=== PATIENT | female | born 1940 | race Caucasian/White ===

== ENCOUNTER → 2016-09-20 | Outpatient (CLI) | payer MEDICARE, MEDICAID ==
[~2016-09-20] MED LIST: ALAVERT PO; ALPR0.5T3; ALPR0.5T72 PO; ASP81CT; ASP81TEC PO; AZIT-21 PO; AZTH250C PO; CALC-80 PO; CETI10TA17 PO; DARI7.5T8; ENAL5TAB; ENAL5TAB PO; GUAI5LIQ3 PO; HYDR-3583 PO; LOVA20TA2 PO; LSNP20T PO; METO-272 PO; METO10TA3 PO; METO25TA2 PO; METOPROLOL ER; MULT-608 PO; NAPR-243 PO; NF-ESOM40C PO; OMEG1CAP51 PO; OMEP20CA12 PO; OXB5T; PARO20TA5 PO; PARO20TA57; PARO20TA57 PO; PRM25T PO; PRO-AIR HFA; RANI150T66; REGADENOSON 0.4 MG/5 ML SYR (LEXISCAN) IV ONE; RMP5C; SMV20T; TRM50T; ZLP5T
[2016-09-20] MEDS: CATHETER FLUSH 10 ML SYR IV PRN ×2 (07:39→09:06)
[2016-09-20 09:00] VITALS: BP 168/97
--- NOTE | 2016-09-21 07:22 | STRESS TEST ---
PROCEDURE PHYSICIAN: ANA PAULA COOLEY DATE OF PROCEDURE: 09/20/2016 LEXISCAN MYOVIEW STRESS TEST REPORT REFERRING PHYSICIAN: Dr. Ann, [facility]. INDICATIONS: 1. Coronary artery disease. 2. Dyspnea. BASELINE HEART RATE: 88 BASELINE BLOOD PRESSURE: 168/97. BASELINE EKG: Sinus rhythm with left bundle branch block. SUMMARY: The patient was injected with 10.49 mCi of technetium 99 Myoview and the resting images were obtained. Then the patient received 0.4 mg of Lexiscan followed by 31.2 mCi of technetium 99 Myoview. Throughout the test, there were no EKG changes. The resting and stress images were reviewed and compared in the short axis, horizontal long axis, and vertical long axis views. Review of the images showed reversible ischemia involving the whole anterior wall, anterior septum and inferolateral septum, fixed defect at the true apex. SSS is 21, SDS 12, TID value 1.02. On the gated images, the left ventricle is dilated. Diffuse left ventricular hypokinesia. Dyskinesia at the true apex, severe hypokinesia at the mid to apical anterior wall, anterior septum. Calculated ejection fraction 28%. CONCLUSION: 1. The patient tolerated Lexiscan well. 2. Total infarction of the apical area with reversible ischemia involving the whole anterior wall, anterior septum and inferior septum. 3. Dilated left ventricle with diffuse left ventricular hypokinesia more pronounced at the anterior wall. Dyskinesia of the apex. Job ID: [id number] Dictated Date: 09/20/2016 17:45:29 Entry Level Manager Date: 09/21/2016 07:17:57 / rosa
== END ==
LOC: CARD 07:16
PROVIDERS: ATTEND Physician Assistant
DX: I25.10 Atherosclerotic heart disease of native coronary artery without angina pectoris (principal); I65.23 Occlusion and stenosis of bilateral carotid arteries; R06.00 Dyspnea, unspecified; F41.9 Anxiety disorder, unspecified
CPT/HCPCS: 78452; 93017

== ENCOUNTER 2016-09-27 07:22 | Day surgery (SDC) | payer MEDICARE, MEDICAID ==
[2016-09-27] VITALS (9 sets, daily range): BP systolic 128–179; BP diastolic 57–98
[~2016-09-27] VITALS: Ht 162.6 cm; Wt 76.7 kg
[~2016-09-27 07:22] MED LIST changes: -CETI10TA17 PO; -METO-272 PO; -OMEP20CA12 PO; -PARO20TA5 PO; -REGADENOSON 0.4 MG/5 ML SYR (LEXISCAN) IV ONE
--- OUTSIDE RECORDS SUMMARY | 2016-09-27 07:25 | XMS REPORT ---
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 Role Phone JOYA RIOS Unavailable PROBLEMS Type Condition ICD9-CM Code YFD08-DL Code Onset Dates Condition Status SNOMED Code Problem Screening for diabetes mellitus V77.1 Active 062191030 Problem Unspecified breast screening V76.10 Active 336751979 Problem Screening for thyroid disorder V77.0 Active 236478313 Assessment Bronchitis J40 Mar, Active 23690357 Assessment Seasonal allergic rhinitis due to pollen J30.1 Mar, Active 67187044 Problem Anxiety F41.9 Active 95099317 Problem Hypertension 401.9 Active 17081951 Problem Acute bronchitis 466.0 Active 54957811 Problem Need for prophylactic vaccination and inoculation, Influenza V04.81 Active 533556692 Problem Patient is full code Z78.9 Active 714526543 Problem Fever, unspecified 780.60 Active 798629047 ALLERGIES Substance Reaction Event Type Date Status Penicillin V Potassium itching Drug Allergy Mar, Active Benadryl itching Drug Allergy Mar, Active steroids itching Non Drug Allergy Mar, Active SOCIAL HISTORY No smoking Hx information available PLAN OF CARE VITAL SIGNS Height 64 in 2016-03-30 Weight 188.4 lbs 2016-03-30 Heart Rate 80 bpm 2016-03-30 Respiratory Rate 18 2016-03-30 BMI 32.34 kg/m2 2016-03-30 Blood pressure systolic 152 mmHg 2016-03-30 Blood pressure diastolic 90 mmHg 2016-03-30 MEDICATIONS Medication Instructions Dosage Frequency Start Date End Date Duration Status Azithromycin 250 MG Orally Once a day 2 tablets on the first day, then 1 tablet daily for 4 days 24h Mar, Mar, 5 day(s) Active Reglan 10 MG take 1 tablet by Oral route 2 times per day 30 Active Omeprazole 20 MG Orally Once a day 1 capsule 24h 90 days Active Cetirizine HCl 10 mg Orally Once a day 1 tablet 24h Mar, Active Paxil 20 mg Orally 1 TAB orally once a day 1 tablet by Oral route 1 time per day Jan, Active Aspir-81 81 MG Orally Once a day 1 tablet 24h Active Xanax 0.5 MG Orally Twice a day 1 tablet as needed 12h Jun, 28 days Active Metoclopramide HCl 10 MG TAKE ONE TABLET BY MOUTH TWICE DAILY 30 Active Toprol XL 50 MG TAKE ONE TABLET BY MOUTH ONCE DAILY 30 Active RESULTS No Results PROCEDURES Procedure Date Ordered Related Diagnosis Body Site FOR[facility] VISIT ESTABLISHED PATIENT Mar 30, 2016 Office Visit, Est Pt., Level 3 Mar 30, 2016 IMMUNIZATIONS No Known Immunizations
[2016-09-27] MEDS ORDERED: HEParin (CATH LAB) 2,000 ML IV ONE (07:58)
[2016-09-27] MEDS ORDERED: LIDOCAINE 1% INJ 20 ML (XYLOCAINE) VIAL ONE (07:58)
[2016-09-27] MEDS ORDERED: NS IV 1000 ML 1,000 ML ONE (07:58)
[2016-09-27 08:30] LABS: BILIRUBIN,URINE NEGATIVE (NEGATIVE); KETONES,URINE NEGATIVE (NEGATIVE); LEUKOCYTE ESTERASE ,URINE 3+ (NEGATIVE); NITRITE,URINE NEGATIVE (NEGATIVE); PH,URINE 7 (5-9); PROTEIN,URINE 2+ (NEGATIVE); UROBILINOGEN,URINE 4 MG/DL (NORMAL)
[2016-09-27 08:30] LABS: MEAN PLATELET VOLUME 11.2 FL (7.4-10.4); RED BLOOD COUNT 3.88 10^6/uL (4.35-5.85); RED CELL DISTRIBUTION WIDTH 15.9 % (10.0-14.5)
[2016-09-27] MEDS ORDERED: NS IV 1000 ML 1,000 ML IV SCH ×2 (08:30→12:08)
[2016-09-27] MEDS ORDERED: METO10TA3 PO (08:39)
[2016-09-27] MEDS ORDERED: OMEP20CA12 PO (08:39)
[2016-09-27] MEDS ORDERED: METO-272 PO (08:39)
[2016-09-27] MEDS ORDERED: PARO20TA5 PO (08:39)
[2016-09-27] MEDS ORDERED: CETI10TA17 PO (08:39)
[2016-09-27 08:40] LABS: PROTHROMBIN TIME PATIENT 13.2 SEC (12.2-14.7)
[2016-09-27 08:40] LABS: WBC,URINE 25-50 /HPF
[2016-09-27 08:49] LABS: ALBUMIN 3.6 G/DL (3.2-4.5); BILIRUBIN,TOTAL 0.4 MG/DL (0.1-1.0); CALCIUM 8.5 MG/DL (8.5-10.1); CREATININE SERUM 1.06 MG/DL (0.60-1.30); POTASSIUM 3.4 MMOL/L (3.6-5.0); TOTAL PROTEIN 7.4 G/DL (6.4-8.2)
--- NOTE | 2016-09-27 08:56 | Diagnostic Imaging Report ---
INDICATION: Coronary artery disease. COMPARISON: 08/28/2010. FINDINGS: The heart is mildly enlarged increased from prior. There is some increased distention of the central pulmonary vascularity as well as likely left basilar and lingular partial atelectasis. No effusion. No pneumothorax. IMPRESSION: Slight increased heart size, vascular congestion and suspicion for mild perihilar edema and left basilar atelectasis. Dictated by: Dictated on workstation # [id number]
[2016-09-27] MEDS ORDERED: fentaNYL INJECTION 100 MCG/2 ML AMP ONE (11:28)
[2016-09-27] MEDS ORDERED: MIDAZOLAM 5 MG/5 ML (VERSED) VIAL ONE (11:28)
--- NOTE | 2016-09-27 11:49 | Cardiac Procedure Note-CS/ASA ---
Pre-Procedure Note Pre-Op Procedure Note H&P Reviewed The H&P was reviewed, patient examined and no changes noted. Date H&P Reviewed: Sep 27, 2016 Time H&P Reviewed: 11:49 Conscious Sedation Pre-Proced Time Reviewed: 11:49 ASA Class: 3 Airway Mallampati Classification: ([facility] appropriate class) I. II. III, IV Lungs Heart ASA score ASA 1: a normal healthy patient ASA 2: a patient with a mild systemic disease (mid diabetes, controlled hypertension, obesity x ASA 3: a patient with a severe systemic disease that limits activity (angina , COPD, prior Myocardial infarction) ASA 4: a patient with an incapacitating disease that is a constant threat to life (CHF, renal failure) ASA 5: a moribund patient not expected to survive 24 hrs. (ruptured aneurysm) ASA 6: a declared brain patient whose organs are being harvested. For emergent operations, add the letter E after the classification Grade 3 Sedation Plan: Analgesia, Amnesia, Plan communicated to team members, Discussed options with patient/fam, Discussed risks with patient/fam Note The patient is an appropriate candidate to undergo the planned procedure, sedation, and anesthesia. The patient immediately re-assessed prior to indication. ANA PAULA COOLEY MD Sep 27, 2016 11:49
[2016-09-27] MEDS ORDERED: meTOprolol 5 MG/5 ML (LOPRESSOR) VIAL ONE (12:04)
[2016-09-27] MEDS ORDERED: ENALAPRILAT 2.5 MG/2 ML (VASOTEC) VIAL IV ONE (12:04)
--- NOTE | 2016-09-27 12:10 | Discharge Inst-Post CATH ---
Discharge Inst-CATH Post Cardiac Cath D/C Inst Follow Up/Plan Appointment with Dr hTomas's office in 2-4 weeks CARDIAC CATH DISCHARGE INSTRUCTIONS *Hold Metformin for 48 hours post heart cath. ACTIVITY * Go Home directly and rest. * Limit activity of the leg (or wrist if it was used) for 7 days including aerobics, swimming, jogging, bicycling, etc. * Restrict stair-climbing for 7 days if possible, if not, climb up with your non -cath leg, then bring together on the same step. * Avoid lifting, pushing, pulling or excessive movement of the affected extremity for 7 days. * Customary sexual activity may be resumed after 2 days-use caution not to use a position that strains or causes pain to the affected extremity. * No driving for 24 hours. * NO SMOKING. * Avoid straining for bowel movements for 7 days. * Gentle walking on level ground is allowed. * Returning to work will depend on the type of procedure and the results. Your doctor will discuss this with you. CALL YOUR DOCTOR FOR ANY OF THE FOLLOWING: *If bleeding from the puncture site occurs- Apply gentle pressure to site with clean cloth and call your doctor or EMS. * If a knot or lump forms under the skin, increases in size, or causes pain. * If bruising appears to be worsening or moving further down your leg instead of disappearing. * Temperature above 101 F. CARE OF YOUR GROIN INCISION; * Bruising or purple discoloration of the skin near the puncture site is common. * You may shower only, no bathtub bathing for 5 days. Be careful to avoid slipping as your leg may feel stiff. * If a closure device was used on your femoral artery, please see the attached guide regarding care of the device and your leg. * REMOVE the dressing from your groin the next day after your procedure in the shower. CARE OF YOUR WRIST INCISION; * Bruising or purple discoloration of the skin near the puncture site is common. * You may shower. * DO NOT submerge wrist. * Remove dressing in 24 hours. ANA PAULA THOMAS MD Sep 27, 2016 12:10
[2016-09-27] MEDS ORDERED: PATIENT MAY USE OWN MEDS, ALL PO SCH (12:15)
--- NOTE | 2016-09-28 08:41 | DISCHARGE SUMMARY ---
PROCEDURE PHYSICIAN: ANA PAULA COOLEY DATE OF PROCEDURE: 09/27/2016 REFERRING PHYSICIAN: Dr. Ann, [facility]. BRIEF HISTORY: Mrs. Su is a 75-year-old lady with history of hypertension, hyperlipidemia, and recurrent chest pain. Had an abnormal stress test, scheduled for left heart catheterization, possible PTCA. PROCEDURE NOTE: After explaining the procedure to the patient, all pros and cons were explained. All questions were answered. The patient signed a consent, then she was placed on the cardiac catheterization laboratory. The right groin was prepped in a sterile fashion. Local anesthesia applied right groin. 6-Bengali sheath was placed in the right femoral artery. Combination of right and left Joey catheter were used to access the right and left coronary system. Multiple views were obtained. Pigtail catheter advanced to the left ventricular cavity. Left ventricular pressure was measured, no left ventriculogram was done. At the end of the procedure, sheath was removed. Mynx device deployed. Hemostasis achieved. No complication noted. Total contrast used 30 mL. Total amount of radiation is 57 mGy. FINDINGS: HEMODYNAMICS: LV pressure 165/23, end-diastolic pressure of 23. Aortic pressure 162/59, mean of 96. No significant gradient across the aortic valve. ANATOMY: 1. LEFT MAIN CORONARY ARTERY: The left main coronary artery is bifurcating to left anterior descending and left circumflex artery with no obstructive disease. 2. LEFT ANTERIOR DESCENDING ARTERY: The left anterior descending artery is moderate in size with mild disease distally. Nonobstructive disease. 3. LEFT CIRCUMFLEX ARTERY: The left circumflex artery is moderate in size with mild tortuosity. No significant obstructive disease. 4. RIGHT CORONARY ARTERY: The right coronary artery is dominant artery, tortuous artery with no obstructive disease. 5. LEFT VENTRICULOGRAM: No left ventriculogram was done. CONCLUSION: 1. Tortuous coronary system with mild disease, nonobstructive disease. 2. Mildly elevated left ventricular end-diastolic pressure. DISCUSSION AND RECOMMENDATION: Medical therapy is recommended. No intervention is needed FINAL DIAGNOSES: 1. Chest pain, nonspecific etiology. 2. Coronary artery disease. 3. Hypertension. 4. Hyperlipidemia. Job ID: [id number] Dictated Date: 09/27/2016 12:13:56 Assistant Men'S Lacrosse Coach Date: 09/28/2016 08:39:27/rosa
== END 2016-09-27 18:00 | disposition home or self-care (01) ==
LOC: CATH 07:22 → CSD 12:20 → CATH 18:00
PROVIDERS: ATTEND Internal Medicine Cardiovascular Disease
DX: R07.89 Other chest pain (principal); R94.39 Abnormal result of other cardiovascular function study; I25.10 Atherosclerotic heart disease of native coronary artery without angina pectoris; E78.5 Hyperlipidemia, unspecified; I10 Essential (primary) hypertension; I44.7 Left bundle-branch block, unspecified; I50.9 Heart failure, unspecified; E66.9 Obesity, unspecified; F41.9 Anxiety disorder, unspecified; Z68.29 Body mass index [BMI] 29.0-29.9, adult; Z87.891 Personal history of nicotine dependence; Z79.899 Other long term (current) drug therapy
CPT/HCPCS: 36415; 71010; 80053; 80061; 81000; 85027; 85610; 85730; 87081; 87088; 87186; 93458

== ENCOUNTER → 2016-11-15 | Outpatient (CLI) | payer MEDICARE, MEDICAID ==
[~2016-11-15] MED LIST changes: +CETI10TA17 PO; +METO-272 PO; +OMEP20CA12 PO; +PARO20TA5 PO
--- NOTE | 2016-11-17 06:24 | ECHOCARDIOGRAPHY REPORT ---
DATE OF SERVICE: 11/15/2016 PROCEDURE: Two-dimensional echocardiogram. REFERRING PHYSICIAN: [facility]. MEASUREMENTS: LVID end diastolic 5.0. IVS thickness 1.3. LVPW thickness 1.2. Left atrial diameter 3.0. Ejection fraction 35%. FINDINGS: 1. Technically difficult study. 2. The left ventricle is dilated with severe diffuse left ventricular hypokinesia, more pronounced at the anterior wall, anterior septum and anterior apical area. Systolic function is reduced, estimated ejection fraction 35%. 3. The left atrium is normal in size. No clots or thrombus were seen within the left atrium. 4. The right atrium and right ventricle are normal in size. No clots or thrombus were seen within the right side. 5. The mitral valve is calcified with mild mitral regurgitation noted by color Doppler flow. No mitral valve prolapse or stenosis. 6. The aortic valve is calcified. No significant aortic valve stenosis or regurgitation was seen. 7. The tricuspid valve is normal in morphology with mild tricuspid regurgitation noted by color Doppler flow. Doppler across the tricuspid valve estimated pulmonary artery pressure of 23 plus right atrial pressure. 8. The pulmonic valve is functioning normally. 9. No pericardial effusion. CONCLUSION: 1. Dilated left ventricle with severe diffuse left ventricular hypokinesia, more pronounced at the anterior wall, anterior septum, anterior apical segment. Systolic function is reduced, estimated ejection fraction 35%. 2. Mild to moderate mitral regurgitation. 3. Mild tricuspid regurgitation. 4. Estimated pulmonary artery pressure of 30 mmHg. Job ID: [id number] DocumentID: [id number] Dictated Date: 11/15/2016 20:32:48 Banking Center Manager Date: 11/16/2016 12:35:04 Dictated By: ANA PAULA COOLEY MD
== END ==
LOC: CARD 12:15
PROVIDERS: ATTEND Internal Medicine Cardiovascular Disease
DX: I25.10 Atherosclerotic heart disease of native coronary artery without angina pectoris (principal); I65.23 Occlusion and stenosis of bilateral carotid arteries; I10 Essential (primary) hypertension; E78.2 Mixed hyperlipidemia; R06.00 Dyspnea, unspecified
CPT/HCPCS: 93306

== ENCOUNTER 2018-09-19 21:25 | Emergency (ER) | payer MEDICARE, MEDICAID ==
[~2018-09-19] VITALS: Ht 162.6 cm; Wt 85.3 kg
[~2018-09-19 21:25] MED LIST changes: -METO-272 PO; +METO-370 PO
--- NOTE | 2018-09-19 21:50 | ED Back Pain ---
General Stated Complaint: LOWER BACK PAIN Source of Information: Patient Exam Limitations: No Limitations History of Present Illness Date Seen by Provider: Sep 19, 2018 Time Seen by Provider: 21:48 Initial Comments To ER per private vehicle with reports of midline low back pain. The pain began earlier today. It's worsened by movement. 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 She denies any fevers or chills. Denies any trauma. Denies any loss of sensation of her genitals. Denies any urinary symptoms such as frequency nausea vomiting or burning on urination. The pain does not radiate down either of her legs. She has a history of back troubles throughout her life. Location: Lumbar Spine Timing/Duration: 1-2 Days Severity: Moderate Pain/Injury Location: Back (R) Associated Symptoms: lower back pain Allergies and Home Medications Allergies Coded Allergies: cortisone (Verified Allergy, Unknown, 01/30/07) diphenhydramine (Verified Allergy, Unknown, 01/30/07) penicillin G (Verified Allergy, Unknown, 01/30/07) Home Medications Aspirin 81 Mg Tabec, 81 MG PO DAILY, (Reported) Cetirizine HCl 10 Mg Tablet, 10 MG PO DAILY, (Reported) Clotrimazole/Betamethasone Dip 15 Gm Cream..g., 1 GM TP BID Prescribed by: CAMILO LUNA on 09/19/182158 Diclofenac Sodium 100 Gm Gel..gram., 1 GM TP BID PRN for BACK PAIN Prescribed by: CAMILO LUNA on 09/19/182158 Lisinopril 20 Mg Tab, 20 MG PO DAILY, (Reported) Methocarbamol 750 Mg Tablet, 750 MG PO Q6H PRN for BACK PAIN Prescribed by: CAMILO LUNA on 09/19/182158 Metoclopramide HCl 10 Mg Tablet, 10 MG PO BID, (Reported) Metoprolol Succinate 50 Mg Tab.er.24h, 50 MG PO DAILY, (Reported) Omeprazole 20 Mg Capsule.dr, 20 MG PO DAILY, (Reported) Paroxetine HCl 20 Mg Tablet, 20 MG PO DAILY, (Reported) Patient Home Medication List Home Medication List Reviewed: Yes Review of Systems Constitutional: see HPI EENTM: see HPI Respiratory: no symptoms reported Musculoskeletal: see HPI, back pain Skin: no symptoms reported Psychiatric/Neurological: No Symptoms Reported Past Ryvxdnn-Dgrwyn-Nmsagl Hx Patient Social History Type Used: Cigarettes Former Smoker, Quit: Jul 30, 2016 Recent Foreign Travel: No Contact w/Someone Who Travel: No Immunizations Up To Date Date of Pneumonia Vaccine: Mar 23, 2016 Date of Influenza Vaccine: Mar 23, 2016 Past Medical History COPD Reproductive Disorders: No Sexually Transmitted Disease: No Physical Exam Vital Signs Vital Signs - First Documented 09/19/18 21:42 Temp 98.3 Pulse 69 Resp 19 B/P (MAP) 215/94 (134) Capillary Refill : Height, Weight, BMI Height: 5'4.00" Weight: 169lbs. 0.0oz. 76.289616ru; 29.0 BMI Method:Stated General Appearance: No Apparent Distress, WD/WN HEENT: PERRL/EOMI, TMs Normal, Normal ENT Inspection Neck: Full Range of Motion, Normal Inspection Respiratory: No Accessory Muscle Use, No Respiratory Distress Gastrointestinal: Normal Bowel Sounds, Non Tender, Soft Back: Normal Inspection; No Vertebral Tenderness Extremity: Normal Capillary Refill, Normal Inspection Neurologic/Psychiatric: Alert, Oriented x3, No Motor/Sensory Deficits Skin: Normal Color, Warm/Dry, Other (Erythema beneath the breast folds) Progress/Results/Core Measures Results/Orders My Orders Orders - CAMILO LUNA APRN Ketorolac Injection (Toradol Injection) (09/19/18 22:00) Orphenadrine Injection (Norflex Injectio (09/19/18 22:00) Vital Signs/I&O 09/19/18 21:42 Temp 98.3 Pulse 69 Resp 19 B/P (MAP) 215/94 (134) Departure Communication (Admissions) 4868- she states to me that she is still hurting but the back pain has improved since the administration of pain medication. She is ready to go home. Her caregivers at the bedside and is agreeable with this plan. Impression Primary Impression: Acute low back pain Qualified Codes: M54.5 - Low back pain Additional Impression: Candidal intertrigo Disposition: 01 HOME, SELF-CARE Condition: Stable Departure-Patient Inst. Decision time for Depature: 21:57 Referrals: SHARATH REYNOLDS MD (PCP) Primary Care Physician ROSY LEAL (Family) Primary Care Physician Patient Instructions: Low Back Pain (DC) Add. Discharge Instructions: 1. Apply the antifungal/steroid cream between the breasts twice a day for 5 days and then apply the antifungal powder. Scripts Diclofenac Sodium (Voltaren) 100 Gm Gel..gram. 1 GM TP BID PRN for BACK PAIN, #1 TUBE Prov: CAMILO LUNA APRN 09/19/18 Methocarbamol (Robaxin-750) 750 Mg Tablet 750 MG PO Q6H PRN for BACK PAIN, #14 TAB Prov: CAMILO LUNA APRN 09/19/18 Clotrimazole/Betamethasone Dip (Lotrisone Cream) 15 Gm Cream..g. 1 GM TP BID, #1 TUBE Prov: CAMILO LUNA APRN 09/19/18 CAMILO LUNA APRN Sep 19, 2018 21:50
[2018-09-19] MEDS ORDERED: METH-313 PO (21:59)
[2018-09-19] MEDS ORDERED: DICL100G18 TP (21:59)
[2018-09-19] MEDS ORDERED: CLOT15CR4 TP (21:59)
[2018-09-19] MEDS ORDERED: ORPHENADRINE 60 MG/2 ML (NORFLEX) AMP IM ONE (22:00)
[2018-09-19] MEDS ORDERED: KETOROLAC 60 MG/2 ML VIAL IM ONE (22:00)
[2018-09-19 22:26] VITALS: BP 180/94
== END 2018-09-19 22:30 | disposition home or self-care (01) ==
LOC: EDUNIT# 21:25 → ER 21:27
DX: M54.5 Low back pain (principal); B37.2 Candidiasis of skin and nail; J44.9 Chronic obstructive pulmonary disease, unspecified; Z87.891 Personal history of nicotine dependence; Z88.8 Allergy status to other drugs, medicaments and biological substances; Z88.0 Allergy status to penicillin; Z79.82 Long term (current) use of aspirin
CPT/HCPCS: 99284

== ENCOUNTER 2018-12-19 14:07 | Outpatient (RCR) | payer MEDICARE, MEDICAID ==
[~2018-12-19 14:07] MED LIST changes: +CLOT15CR4 TP; +DICL100G18 TP; +METH-313 PO
== END 2018-12-25 11:39 | disposition home or self-care (01) ==
PROVIDERS: ATTEND Nurse Practitioner Community Health
DX: M54.42 Lumbago with sciatica, left side (principal)

== ENCOUNTER 2019-09-08 10:27 | Emergency (ER) | payer OTHER, MEDICAID ==
[~2019-09-08] VITALS: Ht 162.5 cm; Wt 81.8 kg
[~2019-09-08 10:27] MED LIST changes: -METO-370 PO; +METO50TA7 PO; +OMEP-280 PO; -OMEP20CA12 PO
--- NOTE | 2019-09-08 11:20 | ED Fall/Injury ---
General Chief Complaint: Trauma-Non Activation Stated Complaint: HEAD LACERATION Nursing Triage Note: pt amb to rm 8 with complaint of fall and laceration to right restorationism. states occurred around 0530 this morning and hit head on carseat. pt has small laceration to right restorationism along with bruising and swelling around the laceration and bruising to right ear. pt states she takes a baby aspirin a day. does not know when last tetanus shot. Source: patient, family Exam Limitations: no limitations (DOT LORENZ) History of Present Illness Date Seen by Provider: Sep 08, 2019 Time Seen by Provider: 10:59 Initial Comments Patient was walking around the house this morning at 5:00 AM and tripped over a cat landing her right restorationism against the car seat that was on the floor. She denies loss of consciousness nausea or vomiting. [place] little lightheaded. She says she's having some pain in her right side of her face but no double vision, blurry vision or blindness. She is not on a blood thinner but does take aspirin daily. She's having no chest pain shortness of breath hip or shoulder pain. No pain in the rest of her skeleton. She has not taken anything for pain. She does not want anything. She says she felt okay so she went and laid back down but when her family checked on her liver is a lot of blood on her pillow because the small laceration on her right restorationism continued to bleed. Location Injury Occurred: home (DOT LORENZ) Allergies and Home Medications Allergies Coded Allergies: cortisone (Verified Allergy, Unknown, 01/30/07) diphenhydramine (Verified Allergy, Unknown, 01/30/07) penicillin G (Verified Allergy, Unknown, 01/30/07) Home Medications Aspirin 81 Mg Tabec, 81 MG PO DAILY, (Reported) Cetirizine HCl 10 Mg Tablet, 10 MG PO DAILY, (Reported) Clotrimazole/Betamethasone Dip 15 Gm Cream..g., 1 GM TP BID Prescribed by: CAMILO LUNA on 09/19/182158 Diclofenac Sodium 100 Gm Gel..gram., 1 GM TP BID PRN for BACK PAIN Prescribed by: CAMILO LUNA on 09/19/182158 Lisinopril 20 Mg Tab, 20 MG PO DAILY, (Reported) Methocarbamol 750 Mg Tablet, 750 MG PO Q6H PRN for BACK PAIN Prescribed by: CAMILO LUNA on 09/19/18 215 Metoclopramide HCl 10 Mg Tablet, 10 MG PO BID, (Reported) Metoprolol Succinate 50 Mg Tab.er.24h, 50 MG PO DAILY, (Reported) Omeprazole 20 Mg Capsule.dr, 20 MG PO DAILY, (Reported) Ondansetron 4 Mg Tab.rapdis, 4 MG PO Q6H PRN for NAUSEA/VOMITING Prescribed by: DOT LORENZ on 09/08/19 1127 Paroxetine HCl 20 Mg Tablet, 20 MG PO DAILY, (Reported) Patient Home Medication List Home Medication List Reviewed: Yes (DOT LORENZ) Review of Systems Review of Systems Constitutional: No chills, No diaphoresis Eyes: Denies Blindness, Denies Drainage Ears, Nose, Mouth, Throat: denies ear pain, denies ear discharge Respiratory: No cough, No dyspnea on exertion Cardiovascular: No chest pain, No palpitations Gastrointestinal: No abdominal pain, No nausea, No vomiting Genitourinary: No discharge, No dysuria Musculoskeletal: No back pain, No joint pain (DOT LORENZ) All Other Systems Reviewed Negative Unless Noted: Yes (DOT LORENZ) Past Viprkkp-Yqlkjq-Xyjvnu Hx Patient Social History Alcohol Use: Denies Use Recreational Drug Use: No (SMOKES 1 PPD) Smoking Status: Former Smoker Type Used: Cigarettes Former Smoker, Quit: Jul 30, 2016 Recent Foreign Travel: No Contact w/Someone Who Travel: No Recent Infectious Disease Expo: No Recent Hopitalizations: No (DOT LORENZ) Immunizations Up To Date Tetanus Booster (TDap): More than 5yrs PED Vaccines UTD: Yes Date of Pneumonia Vaccine: Mar 23, 2016 Date of Influenza Vaccine: Mar 23, 2016 (DOT LORENZ) Past Medical History Surgeries: Yes (HYST,EDWARD,T&A,C-SECT,RIGHT BREAST BIOPSY,ROTATOR CUFF) Respiratory: Yes COPD Cardiac: Yes Neurological: No Reproductive Disorders: No Sexually Transmitted Disease: No Gastrointestinal: No Musculoskeletal: No Endocrine: No Psychosocial: Yes Blood Disorders: Yes (DOT LORENZ) Physical Exam Vital Signs Vital Signs - First Documented 09/08/19 10:30 Pulse 64 Resp 20 B/P (MAP) 191/106 (134) Pulse Ox 94 O2 Delivery Room Air (GALDINO PEARL) Vital Signs Capillary Refill : Less Than 3 Seconds (DOT LORENZ) Height, Weight, BMI Height: 5'4.00" Weight: 188lbs. 0.0oz. 85.230239mh; 30.00 BMI Method:Stated General Appearance: WD/WN, no apparent distress HEENT: PERRL/EOMI, normal ENT inspection, TMs normal, pharynx normal, other (ecchymoses, soft tissue swelling around the restorationism and lateral right orbit without soft tissue preorbital swelling.) Neck: non-tender, full range of motion, supple, normal inspection Cardiovascular: normal peripheral pulses, regular rate, rhythm Respiratory: no respiratory distress, no accessory muscle use Peripheral Pulses: 2+ Radial Pulses (R), 2+ Radial Pulses (L) Extremities: normal range of motion, non-tender, normal inspection, normal capillary refill Neurologic/Psychiatric: director of physician practices II-XII nml as tested, no motor/sensory deficits, alert, normal mood/affect, oriented x 3 Skin: other (2.5 cm laceration over the right restorationism hemostatic.) (DOT LORENZ) Marylu Coma Score Best Eye Response: (4) Open Spontaneously Best Verbal Response: (5) Oriented Best Motor Response: (6) Obeys Commands Marylu Total: 15 (DOT LORENZ) Procedures/Interventions Wound Location: Face Other Wound Location Right eyebrow Wound's Depth, Shape: superficial, linear Wound Explored: clean Irrigated w/ Saline (ccs): 50 Betadine Prep?: Yes (Betasept) Anesthesia: 1% Lidocaine Volume Anesthetic (ccs): 2 Wound Debrided: minimal Suture: Prolene Suture Size: 5-0 Number of Sutures: 2 Progress The wound was thoroughly cleaned and irrigated with normal saline and Betasept. The wound was anesthetized size with approximately 2 ML's of lidocaine without epinephrine. 2 simple interrupted sutures were used to approximate the wound. Patient tolerated procedure well. Sterile dressing applied. (GALDINO PEARL) Progress/Results/Core Measures Results/Orders Lab Results Laboratory Tests Test 09/08/19 11:45 Range/Units White Blood Count 6.4 4.3-11.0 10^3/uL Red Blood Count 3.87 L 4.35-5.85 10^6/uL Hemoglobin 11.4 L 11.5-16.0 G/DL Hematocrit 36 35-52 % Mean Corpuscular Volume 94 80-99 FL Mean Corpuscular Hemoglobin 30 25-34 PG Mean Corpuscular Hemoglobin Concent 32 32-36 G/DL Red Cell Distribution Width 15.3 H 10.0-14.5 % Platelet Count 203 130-400 10^3/uL Mean Platelet Volume 10.7 H 7.4-10.4 FL Sodium Level 138 135-145 MMOL/L Potassium Level 4.1 3.6-5.0 MMOL/L Chloride Level 106 98-107 MMOL/L Carbon Dioxide Level 27 21-32 MMOL/L Anion Gap 5 5-14 MMOL/L Blood Urea Nitrogen 15 7-18 MG/DL Creatinine 0.88 0.60-1.30 MG/DL Estimat Glomerular Filtration Rate > 60 BUN/Creatinine Ratio 17 Glucose Level 107 H 70-105 MG/DL Calcium Level 8.8 8.5-10.1 MG/DL (GALDINO PEARL) My Orders Orders - GALDINO PEARL Lidocaine 1% Inj 20 Ml (Xylocaine 1% Inj (09/08/19 12:45) (GALDINO PEARL) Vital Signs/I&O 09/08/19 10:30 Pulse 64 Resp 20 B/P (MAP) 191/106 (134) Pulse Ox 94 O2 Delivery Room Air (GALDINO PEARL) Blood Pressure Mean: 134 Progress Progress Note : Time: 11:24 Progress Note We'll clean the wound, close it appropriately and up date her on tetanus vaccine. CT of the head face and neck. (DOT LORENZ) Diagnostic Imaging Diagonstic Imaging: CT (without IV contrast) Plain Films/CT/US/NM/MRI: facial bones, c-spine, head Reviewed: Reviewed by Me (DOT LORENZ) Departure Impression Primary Impression: Fall Qualified Codes: W19.XXXA - Unspecified fall, initial encounter Additional Impressions: Contusion of restorationism region Qualified Codes: S00.83XA - Contusion of other part of head, initial encounter Mild concussion Qualified Codes: S06.0X0A - Concussion without loss of consciousness, initial encounter Laceration Disposition: HOME, SELF-CARE Condition: Stable Departure-Patient Inst. Decision time for Depature: 13:10 (DOT LORENZ) Referrals: ROSY LEAL (PCP) Primary Care Physician [facility] (Family) Primary Care Physician Patient Instructions: Concussion, Adult (DC), Laceration Repair With Stitches (DC) Add. Discharge Instructions: Keep the wound clean with regular soap and water or shampoo. You may wear a dressing while out in public; this should be changed at least daily or as often as it becomes soiled. Return to the ER or your primary care doctor in 10-14 days to have the wound reexamined and sutures removed. Return to the doctor sooner if you begin to have increasing redness swelling or drainage from the wound. For the first 2 days you may apply an ice pack for 20 minutes every 4 hours as needed for swelling and pain. Review the handout on concussions. If you're having irritability, headache, nausea or difficulty with balance then you need to get sleep and rest your brain. Zofran/ondansetron 1 tablet under the tongue every 6 hours as needed for nausea or vomiting. All discharge instructions reviewed with patient and/or family. Voiced understanding. Scripts Ondansetron (Ondansetron Odt) 4 Mg Tab.rapdis 4 MG PO Q6H PRN for NAUSEA/VOMITING, #8 TAB 0 Refills Prov: DOT LORENZ 09/08/19 DOT LORENZ Sep 08, 2019 11:20 GALDINO PEARL Sep 08, 2019 13:10
[2019-09-08] MEDS ORDERED: ONDA4TAB11 PO (11:27)
[2019-09-08] MEDS ORDERED: TETANUS,DIPTH,PERTUSS P/F (BOOSTRIX) 0.5 ML VIAL IM ONE (11:30)
[2019-09-08] MEDS ORDERED: LIDOCAINE 1% INJ 20 ML 20 ML VIAL INJ ONE ×2 (11:30→12:45)
[2019-09-08 11:51] LABS: HEMOGLOBIN 11.4 G/DL (11.5-16.0); MEAN PLATELET VOLUME 10.7 FL (7.4-10.4); RED CELL DISTRIBUTION WIDTH 15.3 % (10.0-14.5); WHITE BLOOD COUNT 6.4 10^3/uL (4.3-11.0)
[2019-09-08 12:07] LABS: BUN/CREATININE RATIO 17; CALCIUM 8.8 MG/DL (8.5-10.1); CARBON DIOXIDE 27 MMOL/L (21-32); CHLORIDE 106 MMOL/L (98-107); CREATININE SERUM 0.88 MG/DL (0.60-1.30); GFR ESTIMATED > 60; GLUCOSE 107 MG/DL (70-105); POTASSIUM 4.1 MMOL/L (3.6-5.0); SODIUM 138 MMOL/L (135-145)
--- NOTE | 2019-09-08 12:52 | Diagnostic Imaging Report ---
PROCEDURE: CT head, face, and cervical spine without contrast. TECHNIQUE: Multiple contiguous axial images were obtained through the head, neck, and facial bones without the use of intravenous contrast. Sagittal and coronal reformations through the cervical spine and facial bones were also performed. Auto Exposure Controls were utilized during the CT exam to meet ALARA standards for radiation dose reduction. INDICATION: Head, neck and face pain after fall. COMPARISON: Comparison is made with prior examination of 11/30/2009. FINDINGS: There is prominence of ventricles and sulci. There is some chronic microvascular ischemic disease. There is no hydrocephalus. There is no midline shift. There is no mass, hemorrhage, or extra-axial fluid collection. Calvarium is intact. Sinuses are clear. Left mastoid air cells are clear. There is fluid in the right mastoid air cells. There is straightening of the normal cervical lordosis. The vertebral body heights are well-maintained. There is some degenerative disc disease at C5-C6 and C6-C7. There is no fracture or traumatic subluxation. The odontoid is intact. Lateral masses are well aligned. Prevertebral soft tissues are within normal limits. Lung apices are clear. The zygomatic arches are intact. Pterygoid plates are intact. The mandibular alignment is normal. Mandibles intact. There are no displaced facial fractures. There is mucosal thickening in the maxillary sinuses bilaterally. There is fluid in the right mastoid air cells. Nasal bones are intact. IMPRESSION: Atrophy and some chronic microvascular ischemic disease however no acute intracranial abnormality. Mild cervical spondylosis and degenerative disc disease without acute fracture or traumatic subluxation. Bilateral maxillary sinus disease however no displaced facial fractures. Dictated by: Dictated on workstation # [id number]
[2019-09-08 13:21] VITALS: BP 167/99
== END 2019-09-08 13:21 | disposition home or self-care (01) ==
LOC: ER 10:27 → EDUNIT# 10:27 → ER 13:21
DX: S06.0X0A Concussion without loss of consciousness, initial encounter (principal); S01.81XA Laceration without foreign body of other part of head, initial encounter; R40.2142 Coma scale, eyes open, spontaneous, at arrival to emergency department; R40.2252 Coma scale, best verbal response, oriented, at arrival to emergency department; R40.2362 Coma scale, best motor response, obeys commands, at arrival to emergency department; Z87.891 Personal history of nicotine dependence; Z79.82 Long term (current) use of aspirin; Z88.0 Allergy status to penicillin; Z88.8 Allergy status to other drugs, medicaments and biological substances; W01.198A Fall on same level from slipping, tripping and stumbling with subsequent striking against other object, initial encounter; Y92.019 Unspecified place in single-family (private) house as the place of occurrence of the external cause
CPT/HCPCS: 12011; 36415; 70450; 70486; 72125; 80048; 85027

== ENCOUNTER 2019-09-27 19:17 | Emergency (ER) | payer MEDICAID, MEDICARE, OTHER ==
[~2019-09-27] VITALS: Ht 162.5 cm; Wt 87.5 kg
[~2019-09-27 19:17] MED LIST changes: -OMEP-280 PO; +OMEP20CA18 PO; +ONDA4TAB11 PO
--- NOTE | 2019-09-27 19:37 | ED Chest Pain ---
General Chief Complaint: General Problems/Pain Stated Complaint: RIB PAIN Source: patient, family (daughter and grandson) Exam Limitations: no limitations History of Present Illness Date Seen by Provider: Sep 27, 2019 Time Seen by Provider: 19:25 Initial Comments Patient presents to ER by private conveyance with chief complaint of last night her rolled over in bed and elbowed her in her left ribs causing a large bruise. She is on aspirin but no blood thinners. She denies that her before she feels unsafe in the home. She says it hurts when she takes a breath and it makes her cough but she's not cough anything up. No fevers or chills. Just happened last night. No shortness of breath. She took some Tylenol which gave her modest relief. She has poor kidney function and so does not use NSAIDs. Allergies and Home Medications Allergies Coded Allergies: cortisone (Verified Allergy, Unknown, 01/30/07) diphenhydramine (Verified Allergy, Unknown, 01/30/07) penicillin G (Verified Allergy, Unknown, 01/30/07) Home Medications Aspirin 81 Mg Tabec, 81 MG PO DAILY, (Reported) Cetirizine HCl 10 Mg Tablet, 10 MG PO DAILY, (Reported) Clotrimazole/Betamethasone Dip 15 Gm Cream..g., 1 GM TP BID Prescribed by: CAMILO LUNA on 09/19/182158 Diclofenac Sodium 100 Gm Gel..gram., 1 GM TP BID PRN for BACK PAIN Prescribed by: CAMILO LUNA on 09/19/182158 Lisinopril 20 Mg Tab, 20 MG PO DAILY, (Reported) Methocarbamol 750 Mg Tablet, 750 MG PO Q6H PRN for BACK PAIN Prescribed by: CAMILO LUNA on 09/19/182158 Metoclopramide HCl 10 Mg Tablet, 10 MG PO BID, (Reported) Metoprolol Succinate 50 Mg Tab.er.24h, 50 MG PO DAILY, (Reported) Omeprazole 20 Mg Capsule.dr, 20 MG PO DAILY, (Reported) Ondansetron 4 Mg Tab.rapdis, 4 MG PO Q6H PRN for NAUSEA/VOMITING Prescribed by: DOT LORENZ on 09/08/19 1127 Paroxetine HCl 20 Mg Tablet, 20 MG PO DAILY, (Reported) Patient Home Medication List Home Medication List Reviewed: Yes Review of Systems Review of Systems Constitutional: No chills, No diaphoresis EENTM: No Blurred Vision, No Double Vision Respiratory: Denies Cough, Denies Shortness of Air Cardiovascular: See HPI, Chest Pain; Denies Lightheadedness Gastrointestinal: Denies Constipated, Denies Diarrhea Genitourinary: Denies Burning, Denies Discharge Musculoskeletal: No back pain, No joint pain Skin: see HPI, change in color; No lesions, No lumps Psychiatric/Neurological: Denies Anxiety, Denies Depressed All Other Systems Reviewed Negative Unless Noted: Yes Past Bvbzudj-Lzmhno-Xzvcql Hx Patient Social History Alcohol Use: Denies Use Recreational Drug Use: No Smoking Status: Former Smoker Type Used: Cigarettes Former Smoker, Quit: Jul 30, 2016 Recent Foreign Travel: No Contact w/Someone Who Travel: No Recent Hopitalizations: No Immunizations Up To Date Tetanus Booster (TDap): Less than 5yrs PED Vaccines UTD: Yes Date of Pneumonia Vaccine: Mar 23, 2016 Date of Influenza Vaccine: Mar 23, 2016 Past Medical History Surgeries: Yes (HYST,EDWARD,T&A,C-SECT,RIGHT BREAST BIOPSY,ROTATOR CUFF) Respiratory: Yes COPD Cardiac: Yes Neurological: No Reproductive Disorders: No Sexually Transmitted Disease: No Gastrointestinal: No Musculoskeletal: No Endocrine: No Psychosocial: Yes Blood Disorders: Yes Physical Exam Vital Signs Vital Signs - First Documented 09/27/19 19:20 Temp 37.0 Pulse 81 Resp 20 B/P (MAP) 187/95 (125) Pulse Ox 96 Capillary Refill : Height, Weight, BMI Height: 5'4.00" Weight: 188lbs. 0.0oz. 85.370363pl; 30.00 BMI Method:Stated General Appearance: No Apparent Distress, WD/WN HEENT: PERRL/EOMI, Pharynx Normal, Moist Mucous Membranes Neck: Full Range of Motion, Normal Inspection Respiratory: No Chest Non Tender; Lungs Clear, Normal Breath Sounds, No Accessory Muscle Use, No Respiratory Distress Cardiovascular: Regular Rate, Rhythm, No Edema, Normal Peripheral Pulses Extremity: Normal Capillary Refill, Normal Inspection Neurologic/Psychiatric: Alert, Oriented x3 Skin: Ecchymosis (around the elbow-sized ecchymoses on the left lateral ribs mid axillary line) Procedures/Interventions Suture Size: 5-0 Progress/Results/Core Measures Results/Orders My Orders Orders - DOT LORENZ Ribs, Left 2-3 Views (09/27/19 19:32) Incentive Spirometry Initial (09/27/19 19:32) Vital Signs/I&O 09/27/19 19:20 Temp 37.0 Pulse 81 Resp 20 B/P (MAP) 187/95 (125) Pulse Ox 96 Progress Progress Note : Time: 19:37 Progress Note Patient does not have any fear of her . We'll obtain plain films of the ribs to rule out fracture. Incentive spirometer has been ordered. Hydrocodone for pain. Diagnostic Imaging Diagonstic Imaging: Xray Plain Films/CT/US/NM/MRI: chest (left ribs 2-3 views) Comments NAME: LOKI LOPEZ [facility] REC#: [id number] PT STATUS: REG ER : 1940 PHYSICIAN: DOT LORENZ MD ADMIT DATE: 09/27/19/ER Draft Date of Exam:09/27/19 RIBS, LEFT 2-3 VIEWS INDICATION: Left-sided rib pain for one day. FINDINGS: 3 views of the left ribs demonstrate some atelectasis in the left lung base. No fracture or pneumothorax is identified. IMPRESSION: There is left basilar atelectasis with no visible fractures. Dictated on workstation # [id number] Dict: 09/27/191950 Trans: 09/27/191954 CLARKE [id number] Interpreted by: LEONARDO KULKARNI MD Electronically signed by: Reviewed: Reviewed by Me Departure Impression Primary Impression: Traumatic ecchymosis of rib Qualified Codes: S20.20XA - Contusion of thorax, unspecified, initial encounter Disposition: HOME, SELF-CARE Condition: Stable Departure-Patient Inst. Decision time for Depature: 20:03 Referrals: [facility] (PCP) Primary Care Physician ROSY LEAL (Family) Primary Care Physician Patient Instructions: Bruised Rib (DC) Add. Discharge Instructions: Incentive's spirometry 10 inhalations every hour while awake for the next 1-2 weeks to prevent pneumonia. Follow-up with her primary care doctor if you're having any concerns. Tylenol 1000 mg every 8 hours as needed for pain. Hydrocodone one tablet every 8 hours as needed for breakthrough pain. All discharge instructions reviewed with patient and/or family. Voiced understanding. Scripts Hydrocodone/Acetaminophen (Hydrocodone/Acetaminophen 5 MG/325 MG TAB) 1 Each Tablet 1 TAB PO Q8H for Pain MDD 10 TABS for 3 Days, #10 TAB 0 Refills Prov: DOT LORENZ 09/27/19 DOT LORENZ Sep 27, 2019 19:37
--- NOTE | 2019-09-27 19:55 | Diagnostic Imaging Report ---
INDICATION: Left-sided rib pain for one day. FINDINGS: 3 views of the left ribs demonstrate some atelectasis in the left lung base. No fracture or pneumothorax is identified. IMPRESSION: There is left basilar atelectasis with no visible fractures. Dictated by: Dictated on workstation # [id number]
[2019-09-27] MEDS ORDERED: HYDR-4226 PO (20:06)
[2019-09-27 20:14] VITALS: BP 154/76
[2019-09-27] MEDS ORDERED: RX-HYDROCODONE/APAP 5/325 MG #4 TAB PK PO PRN (20:15)
== END 2019-09-27 20:16 | disposition home or self-care (01) ==
LOC: EDUNIT# 19:17 → ER 19:18
DX: S20.212A Contusion of left front wall of thorax, initial encounter (principal); Z88.0 Allergy status to penicillin; Z88.8 Allergy status to other drugs, medicaments and biological substances; Z79.82 Long term (current) use of aspirin; Z87.891 Personal history of nicotine dependence; W22.8XXA Striking against or struck by other objects, initial encounter
CPT/HCPCS: 71100

== ENCOUNTER 2020-04-07 18:34 | Emergency (ER) | payer MEDICAID ==
[~2020-04-07] VITALS: Ht 162.6 cm; Wt 82.7 kg
[~2020-04-07 18:34] MED LIST changes: +HYDR-4226 PO
--- NOTE | 2020-04-07 19:01 | ED Head Injury ---
General Chief Complaint: Trauma-Non Activation Stated Complaint: NAUSEA/BRUISING & LAC TO FACE Source: patient Exam Limitations: no limitations History of Present Illness Date Seen by Provider: Apr 07, 2020 Time Seen by Provider: 18:59 Initial Comments To ER by private vehicle from home where she lives with her grandchildren with reports of fall this morning about 4 AM and a second fall at noon. She's had a couple episodes of vomiting, she presented to [facility] who referred her here for CT imaging. She is only on aspirin. Occurred: this evening Severity: moderate Location: frontal Loss of Consciousness: no loss of consciousness Associated Systoms: No Headaches; Nausea/Vomiting Allergies and Home Medications Allergies Coded Allergies: cortisone (Verified Allergy, Unknown, 01/30/07) diphenhydramine (Verified Allergy, Unknown, 01/30/07) penicillin G (Verified Allergy, Unknown, 01/30/07) Home Medications Aspirin 81 Mg Tabec, 81 MG PO DAILY, (Reported) Cetirizine HCl 10 Mg Tablet, 10 MG PO DAILY, (Reported) Clotrimazole/Betamethasone Dip 15 Gm Cream..g., 1 GM TP BID Prescribed by: CAMILO LUNA on 09/19/182158 Diclofenac Sodium 100 Gm Gel..gram., 1 GM TP BID PRN for BACK PAIN Prescribed by: CAMILO LUNA on 09/19/182158 Hydrocodone/Acetaminophen 1 Each Tablet, 1 TAB PO Q8H Prescribed by: DOT LORENZ on 09/27/192005 Lisinopril 20 Mg Tab, 20 MG PO DAILY, (Reported) Methocarbamol 750 Mg Tablet, 750 MG PO Q6H PRN for BACK PAIN Prescribed by: CAMILO LUNA on 09/19/182158 Metoclopramide HCl 10 Mg Tablet, 10 MG PO BID, (Reported) Metoprolol Succinate 50 Mg Tab.er.24h, 50 MG PO DAILY, (Reported) Omeprazole 20 Mg Capsule.dr, 20 MG PO DAILY, (Reported) Ondansetron 4 Mg Tab.rapdis, 4 MG PO Q6H PRN for NAUSEA/VOMITING Prescribed by: DOT LORENZ on 09/08/19 112 Paroxetine HCl 20 Mg Tablet, 20 MG PO DAILY, (Reported) Patient Home Medication List Home Medication List Reviewed: Yes Review of Systems Review of Systems Constitutional: see HPI Eyes: No Symptoms Reported Ears, Nose, Mouth, Throat: no symptoms reported Respiratory: no symptoms reported Cardiovascular: no symptoms reported Genitourinary: no symptoms reported Musculoskeletal: no symptoms reported Skin: no symptoms reported Psychiatric/Neurological: No Symptoms Reported Endocrine: No Symptoms Reported Hematologic/Lymphatic: No Symptoms Reported Past Dmkhbdu-Cizafa-Gicphi Hx Patient Social History Type Used: Cigarettes Former Smoker, Quit: Jul 30, 2016 Recent Foreign Travel: No Contact w/Someone Who Travel: No Recent Hopitalizations: No Immunizations Up To Date Tetanus Booster (TDap): Less than 5yrs PED Vaccines UTD: Yes Date of Pneumonia Vaccine: Mar 23, 2016 Date of Influenza Vaccine: Mar 23, 2016 Past Medical History Surgeries: Yes (RIGHT BREAST BIOPSY,ROTATOR CUFF) Section, Gallbladder, Hysterectomy, Oophorectomy, Orthopedic, Tonsillectomy Respiratory: Yes COPD Cardiac: Yes Hypertension Neurological: No Reproductive Disorders: No Sexually Transmitted Disease: No Genitourinary: No Gastrointestinal: No Musculoskeletal: No Endocrine: No HEENT: No Cancer: No Psychosocial: No Blood Disorders: Yes Physical Exam Vital Signs Vital Signs - First Documented 04/07/20 18:40 Temp 36.8 Pulse 74 Resp 20 B/P (MAP) 162/83 (109) Pulse Ox 94 O2 Delivery Room Air Capillary Refill : Height, Weight, BMI Height: 5'4.00" Weight: 188lbs. 0.0oz. 85.767802wj; 33.00 BMI Method:Stated General Appearance: WD/WN, no apparent distress HEENT: PERRL/EOMI, normal ENT inspection, TMs normal, other (forehead hematoma without open wound) Neck: non-tender, full range of motion (The rest will be) Respiratory: normal breath sounds, no respiratory distress, no accessory muscle use Extremities: normal range of motion, non-tender Psychiatric: alert, oriented x 3 Crainal Nerves: normal hearing, normal speech, PERRL Skin: normal color, warm/dry Marylu Coma Score Best Eye Response: (4) Open Spontaneously Best Verbal Response: (5) Oriented Best Motor Response: (6) Obeys Commands Marylu Total: 15 Procedures/Interventions Suture Size: 5-0 Progress/Results/Core Measures Results/Orders My Orders Orders - CAMILO LUNA APRN Ct Head/Cervical Spine Wo (04/07/20 18:53) Vital Signs/I&O 04/07/20 04/07/20 18:40 20:09 Temp 36.8 Pulse 74 67 Resp 20 B/P (MAP) 162/83 (109) 162/83 (109) Pulse Ox 94 97 O2 Delivery Room Air Room Air Departure Impression Primary Impression: Head injury Qualified Codes: S09.90XA - Unspecified injury of head, initial encounter Additional Impression: Concussion Qualified Codes: S06.0X9A - Concussion with loss of consciousness of unspecified duration, initial encounter Disposition: HOME, SELF-CARE Condition: Stable Departure-Patient Inst. Decision time for Depature: 20:24 Referrals: [facility] (PCP) Primary Care Physician ROSY LEAL (Family) Primary Care Physician Patient Instructions: Concussion in Adults Add. Discharge Instructions: 1. Return to ER for any concerns All discharge instructions reviewed with patient and/or family. Voiced understanding. CAMILO LUNA CERTIFIED HAND THERAPIST Apr 07, 2020 19:01
--- NOTE | 2020-04-07 19:55 | NUR ---
PT BACK FROM CT.
[2020-04-07 20:09] VITALS: BP 162/83
--- NOTE | 2020-04-07 20:20 | Diagnostic Imaging Report ---
PROCEDURE: CT head and CT cervical spine without contrast. TECHNIQUE: Multiple contiguous axial images were obtained through the brain and cervical spine without the use of intravenous contrast. Sagittal and coronal reformations through the cervical spine were then performed. Auto Exposure Controls were utilized during the CT exam to meet ALARA standards for radiation dose reduction. INDICATION: Fall, hit head, ecchymosis noted left eye, hematoma left superior eye. EXAMINATION: CT brain, CT cervical spine 04/07/2020 Comparison is made to brain and cervical spine from 09/08/2019 FINDINGS: Brain: No hemorrhage or infarct. No mass, mass effect, or midline shift. No hydrocephalus. Chronic disease is seen within the sinuses. Partial opacification of the right mastoid air cells is noted, age indeterminate. Left mastoid air cells clear. Soft tissue swelling anterior and proximal to the left globe is noted consistent with history. The globe itself and post septal space unremarkable. IMPRESSION: 1. Soft tissue abnormalities as above. No acute intracranial process. CT cervical spine: There is mild reversal of the normal curvature similar to previous imaging and perhaps due to muscle spasm or positional in nature. Grade 1 anterolisthesis of C3-C4 is noted. This is stable. Remaining alignment is maintained. No acute fractures appreciated. Mild motion artifact slightly limits evaluation of the C3 and C4 levels. No obvious acute abnormality in the region is seen. The prevertebral soft tissues demonstrate no acute disease. The lung apices clear. IMPRESSION: 1. Chronic changes. No acute abnormality appreciated. Dictated by: Dictated on workstation # [id number]
--- NOTE | 2020-04-07 20:40 | NUR ---
PT ASSISTED TO CHAIR AND OUT TO FAMILY CAR.
[2020-04-07 20:46] VITALS: BP 162/83
[2020-04-07] MEDS: RX-ONDANSETRON 4 MG ODT (ZOFRAN) PPK #4 PO STA ×2 (20:58→20:59)
== END 2020-04-07 20:46 | disposition home or self-care (01) ==
LOC: EDUNIT# 18:34 → ER 18:37
DX: S06.0X0A Concussion without loss of consciousness, initial encounter (principal); S00.83XA Contusion of other part of head, initial encounter; I10 Essential (primary) hypertension; R40.2410 Glasgow coma scale score 13-15, unspecified time; Z87.891 Personal history of nicotine dependence; Z88.0 Allergy status to penicillin; Z88.8 Allergy status to other drugs, medicaments and biological substances; Z79.82 Long term (current) use of aspirin; W19.XXXA Unspecified fall, initial encounter
CPT/HCPCS: 70450; 72125

== ENCOUNTER 2020-10-21 14:34 | Inpatient (IN) | payer MEDICARE, MEDICAID ==
[~2020-10-21] VITALS: Ht 162.6 cm; Wt 72.6 kg
[~2020-10-21 14:34] MED LIST changes: +MTC10T PO
--- NOTE | 2020-10-21 14:52 | ED Respiratory ---
General Chief Complaint: Respiratory Problems Stated Complaint: SOB Source: patient Exam Limitations: no limitations History of Present Illness Date Seen by Provider: Oct 21, 2020 Time Seen by Provider: 14:36 Initial Comments Patient presents ER by EMS from home where she resides with her grandson and chief complaint that since this morning she is been having some shortness of air off and on. Happens while at rest is not worse with exertion. She is not having any chest pain nausea vomiting fever sweats chills cough, sick contacts. She has a history of asthma and took several drags off of her albuterol inhaler without any improvement. She does not smoke cigarettes. Primary care through pending sale to [facility]. EF 35 to 40% on echocardiogram from [address] Thomas. Grade 3 diastolic dysfunction. Cardiac catheterization [address] Kitchen demonstrating tortuous coronary system with mild disease, nonobstructive and elevated left ventricular end- diastolic pressure Allergies and Home Medications Allergies Coded Allergies: cortisone (Verified Allergy, Unknown, 01/30/07) diphenhydramine (Verified Allergy, Unknown, 01/30/07) penicillin G (Verified Allergy, Unknown, 01/30/07) Home Medications Aspirin 81 Mg Tabec, 81 MG PO DAILY, (Reported) Cetirizine HCl 10 Mg Tablet, 10 MG PO DAILY, (Reported) Clotrimazole/Betamethasone Dip 15 Gm Cream..g., 1 GM TP BID Prescribed by: CAMILO LUNA on 09/19/182158 Diclofenac Sodium 100 Gm Gel..gram., 1 GM TP BID PRN for BACK PAIN Prescribed by: CAMILO LUNA on 09/19/182158 Hydrocodone/Acetaminophen 1 Each Tablet, 1 TAB PO Q8H Prescribed by: DOT LORENZ on 09/27/192005 Lisinopril 20 Mg Tab, 20 MG PO DAILY, (Reported) Methocarbamol 750 Mg Tablet, 750 MG PO Q6H PRN for BACK PAIN Prescribed by: CAMILO LUNA on 09/19/182158 Metoclopramide HCl 10 Mg Tablet, 10 MG PO BID, (Reported) Metoprolol Succinate 50 Mg Tab.er.24h, 50 MG PO DAILY, (Reported) Omeprazole 20 Mg Capsule.dr, 20 MG PO DAILY, (Reported) Ondansetron 4 Mg Tab.rapdis, 4 MG PO Q6H PRN for NAUSEA/VOMITING Prescribed by: DOT LORENZ on 09/08/19 1127 Paroxetine HCl 20 Mg Tablet, 20 MG PO DAILY, (Reported) Patient Home Medication List Home Medication List Reviewed: Yes Review of Systems Review of Systems Constitutional: No chills, No fever, No malaise EENTM: No ear discharge, No hearing loss, No ear pain Respiratory: No cough, No orthopnea, No phlegm; short of breath; No wheezing Cardiovascular: No chest pain, No edema, No Hx of Intervention, No palpitations Gastrointestinal: No abdominal pain, No constipation, No diarrhea Genitourinary: No discharge, No dysuria Musculoskeletal: No back pain, No joint pain Skin: pruritus, rash All Other Systems Reviewed Negative Unless Noted: Yes Past Mmyfkww-Mkwaac-Rqwbag Hx Patient Social History Alcohol Use: Denies Use Smoking Status: Former Smoker Type Used: Cigarettes Former Smoker, Quit: Jul 30, 2016 Recent Hopitalizations: No Immunizations Up To Date Tetanus Booster (TDap): Less than 5yrs PED Vaccines UTD: Yes Date of Pneumonia Vaccine: Mar 23, 2016 Date of Influenza Vaccine: Mar 23, 2016 Past Medical History Surgeries: Yes (RIGHT BREAST BIOPSY,ROTATOR CUFF) Section, Gallbladder, Hysterectomy, Oophorectomy, Orthopedic, Tonsillectomy Respiratory: Yes COPD Cardiac: Yes Hypertension Neurological: No Reproductive Disorders: No Sexually Transmitted Disease: No Genitourinary: No Gastrointestinal: No Musculoskeletal: No Endocrine: No HEENT: No Cancer: No Psychosocial: No Blood Disorders: Yes Physical Exam Vital Signs - First Documented 10/21/20 14:34 Temp 35.2 Pulse 94 Resp 20 B/P (MAP) 171/99 (123) Capillary Refill : Height: 5'4.00" Weight: 188lbs. 0.0oz. 85.114235yf; 31.00 BMI Method:Stated General Appearance: no apparent distress, other (Disheveled, covered with bedbugs and bedbug bites) Eyes: Bilateral Eye Normal Inspection, Bilateral Eye PERRL, Bilateral Eye EOMI HEENT: PERRL/EOMI, normal ENT inspection, pharynx normal (Oral mucosa is moist) Neck: full range of motion, normal inspection Respiratory: lungs clear, normal breath sounds, no respiratory distress (Oxygen saturation 100% on room air with nonlabored breathing), no accessory muscle use Cardiovascular: normal peripheral pulses, regular rate, rhythm, no edema Gastrointestinal: non tender, soft Extremities: normal capillary refill Neurologic/Psychiatric: alert, normal mood/affect, oriented x 3 Skin: normal color, warm/dry Procedures/Interventions Suture Size: 5-0 Progress/Results/Core Measures Suspected Sepsis SIRS Temperature: Pulse: Respiratory Rate: Laboratory Tests 10/21/20 14:45: White Blood Count 7.1 Blood Pressure / Mean: Laboratory Tests 10/21/20 14:45: Creatinine 1.17, Platelet Count 335, Total Bilirubin 0.5 Results/Orders Lab Results Laboratory Tests Test 10/21/20 14:45 10/21/20 15:04 10/21/20 15:10 10/21/20 15:13 Range/Units White Blood Count 7.1 4.3-11.0 10^3/uL Red Blood Count 2.64 L 3.80-5.11 10^6/uL Hemoglobin 6.1 *L 11.5-16.0 g/dL Hematocrit 23 L 35-52 % Mean Corpuscular Volume 86 80-99 fL Mean Corpuscular Hemoglobin 23 L 25-34 pg Mean Corpuscular Hemoglobin Concent 27 L 32-36 g/dL Red Cell Distribution Width 16.8 H 10.0-14.5 % Platelet Count 335 130-400 10^3/uL Mean Platelet Volume 11.1 9.0-12.2 fL Immature Granulocyte % (Auto) 0 % Neutrophils (%) (Auto) 69 42-75 % Lymphocytes (%) (Auto) 21 12-44 % Monocytes (%) (Auto) 9 0-12 % Eosinophils (%) (Auto) 1 0-10 % Basophils (%) (Auto) 1 0-10 % Neutrophils # (Auto) 4.9 1.8-7.8 X 10^3 Lymphocytes # (Auto) 1.5 1.0-4.0 X 10^3 Monocytes # (Auto) 0.6 0.0-1.0 X 10^3 Eosinophils # (Auto) 0.1 0.0-0.3 10^3/uL Basophils # (Auto) 0.0 0.0-0.1 10^3/uL Immature Granulocyte # (Auto) 0.0 0.0-0.1 10^3/uL Sodium Level 141 135-145 MMOL/L Potassium Level 3.6 3.6-5.0 MMOL/L Chloride Level 106 98-107 MMOL/L Carbon Dioxide Level 23 21-32 MMOL/L Anion Gap 12 5-14 MMOL/L Blood Urea Nitrogen 17 7-18 MG/DL Creatinine 1.17 0.60-1.30 MG/DL Estimat Glomerular Filtration Rate 44 BUN/Creatinine Ratio 15 Glucose Level 163 H 70-105 MG/DL Calcium Level 8.5 8.5-10.1 MG/DL Corrected Calcium 8.7 8.5-10.1 MG/DL Total Bilirubin 0.5 0.1-1.0 MG/DL Aspartate Amino Transf (AST/SGOT) 22 5-34 U/L Alanine Aminotransferase (ALT/SGPT) 12 0-55 U/L Alkaline Phosphatase 90 40-136 U/L Troponin I < 0.028 <0.028 NG/ML C-Reactive Protein High Sensitivity 0.76 H 0.00-0.50 MG/DL B-Type Natriuretic Peptide 2056.4 H <100.0 PG/ML Total Protein 8.4 H 6.4-8.2 GM/DL Albumin 3.8 3.2-4.5 GM/DL Coronavirus 2019 (SUE) Negative Negative Blood Gas Puncture Site RRAD Blood Gas Patient Temperature 35.2 Arterial Blood pH 7.34 *L 7.37-7.43 Arterial Blood Partial Pressure CO2 48 H 35-45 MMHG Arterial Blood Partial Pressure O2 195 H 79-93 MMHG Arterial Blood HCO3 26 23-27 MMOL/L Arterial Blood Total CO2 27.5 21.0-31.0 MMOL/L Arterial Blood Oxygen Saturation 101 H 94-100 % Arterial Blood Base Excess 0.5 -2.5-2.5 MMOL/L Iam Test POS Blood Gas Ventilator Setting NO Blood Gas Inspired Oxygen 0 Urine Color YELLOW Urine Clarity CLEAR Urine pH 5.5 5-9 Urine Specific [place] >=1.030 1.016-1.022 Urine Protein 1+ H NEGATIVE Urine Glucose (UA) NEGATIVE NEGATIVE Urine Ketones NEGATIVE NEGATIVE Urine Nitrite NEGATIVE NEGATIVE Urine Bilirubin NEGATIVE NEGATIVE Urine Urobilinogen 1.0 < = 1.0 MG/DL Urine Leukocyte Esterase 1+ H NEGATIVE Urine RBC (Auto) NEGATIVE NEGATIVE Urine RBC NONE /HPF Urine WBC 25-50 H /HPF Urine Squamous Epithelial Cells 10-25 H /HPF Urine Crystals NONE /LPF Urine Bacteria LARGE H /HPF Urine Casts NONE /LPF Urine Mucus NEGATIVE /LPF Urine Culture Indicated YES Micro Results Microbiology 10/21/20 Influenza Types A,B Antigen (DAYANA) - Final, Complete My Orders Orders - DOT LORENZ Cbc With Automated Diff (10/21/20 14:45) Comprehensive Metabolic Panel (10/21/20 14:45) Hs C Reactive Protein (10/21/20 14:45) Chest 1 View, Ap/Pa Only (10/21/20 14:45) Arterial Blood Gas (10/21/20 14:45) Ua Culture If Indicated (10/21/20 14:45) Covid 19 Inhouse Test (10/21/20 14:45) Influenza A And B Antigens (10/21/20 14:45) Continuous Ekg Monitoring (10/21/20 14:45) Ekg Tracing (10/21/20 14:45) Troponin I (10/21/20 14:45) Aspirin Chewable Tablet (Baby Aspirin Ch (10/21/20 15:15) BNP (10/21/20 15:05) Type And Screen (10/21/20 15:13) Vital Signs: Special (Order) (10/21/20 15:13) Consent-Obtain Consent For (10/21/20 15:13) Monitor S/S Transfusion Reacti (10/21/20 15:13) Ns Iv 500 Ml (Sodium Chloride 0.9%) (10/21/20 15:15) Red Cells Leukocytes Reduced (10/21/20 15:13) Iron Tibc %Sat & Ferritin (10/21/20 15:16) Methylprednisolone Sod Succ (Solu-Medrol (10/21/20 16:00) Azithromycin Tablet (Zithromax Tablet) (10/21/20 16:00) Ceftriaxone For Iv Use (Rocephin For I (10/21/20 16:00) Sputum Culture (10/21/20 15:52) Blood Culture (10/21/20 15:52) Urine Culture (10/21/20 15:10) Furosemide Injection (Lasix Injection) (10/21/20 16:15) Medications Given in ED Current Medications Medications Dose Ordered Sig/Trevon Route Start Time Stop Time Status Last Admin Dose Admin Aspirin 324 mg ONCE ONCE PO 10/21/20 15:15 10/21/20 15:16 DC 10/21/20 15:24 324 MG Azithromycin 500 mg ONCE ONCE PO 10/21/20 16:00 10/21/20 16:01 DC 10/21/20 16:02 500 MG Ceftriaxone Sodium 1000 mg/ Sterile Water 10 ml @ 200 mls/hr ONCE ONCE IV 10/21/20 16:00 10/21/20 16:02 DC 10/21/20 16:02 200 MLS/HR Methylprednisolone Sodium Succinate 62.5 mg ONCE ONCE IVP 10/21/20 16:00 10/21/20 16:01 DC 10/21/20 16:03 62.5 MG Vital Signs/I&O 10/21/20 14:34 Temp 35.2 Pulse 94 Resp 20 B/P (MAP) 171/99 (123) Capillary Refill : Progress Note #1: Time: 14:50 Progress Note The patient endorses shortness of air without wheezing and oxygen saturation 100% on room air. EMS said she was 94% when they arrived on room air so they put her on a couple liters of oxygen. Vitals are otherwise normal. We will put her on telemetry get an EKG and a troponin and give her some aspirin for potential atypical anginal event versus dysrhythmia versus viral or atypical pneumonia versus CHF exacerbation. Chest x-ray and lab. She has a septic vital signs. Progress Note #2: Time: 15:15 Progress Note Hemoglobin 6.1 with history of coronary disease. Plan to give her 2 units in the hospital of packed red blood cells and get some iron studies as she has borderline low MCV. Progress Note #3: Time: 16:10 Progress Note BNP is 2000 so we are going to hit her with 40 mg Lasix now and probably 20 mg between the 2 units. ECG Initial ECG Impression Date: Oct 21, 2020 Initial ECG Impression Time: 14:53 Initial ECG Rate: 92 Initial ECG Rhythm: Normal Sinus Initial ECG Intervals: QT (557) Initial ECG Impression: Nonspecific Changes (Left bundle branch block) Comment Left bundle branch block, sinus rhythm. Diagnostic Imaging Diagonstic Imaging: Xray Plain Films/CT/US/NM/MRI: chest Comments NAME: LOKI LOPEZ [facility] REC#: [id number] PT STATUS: REG ER : 1940 PHYSICIAN: DOT LORENZ MD ADMIT DATE: 10/21/20/ER Draft Date of Exam:10/21/20 CHEST 1 VIEW, AP/PA ONLY INDICATION: Shortness of air. TIME OF EXAM: 03:25 p.m. COMPARISON: Comparison is made with prior chest from 09/27/2016. FINDINGS: Heart is enlarged but stable. There may be some minimal infiltrate in the right midlung field. Otherwise, lungs are clear. There are some basilar interstitial changes which may be chronic. There is no effusion or pneumothorax. IMPRESSION: Cardiomegaly and questionable minimal patchy infiltrate in the right midlung. Dictated on workstation # [id number] Dict: 10/21/20 1541 Trans: 10/21/20 1544 [id number] [id number] Interpreted by: MISAEL NGUYEN MD Electronically signed by: Reviewed: Reviewed by Me Departure Communication (Admissions) Time/Spoke to Admitting Phy: 16:10 Discussed the case with Dr. Olsen and she agrees to observe the patient Lasix and 2 units of packed red blood cells. Impression Primary Impression: Anemia Qualified Codes: D64.9 - Anemia, unspecified Additional Impressions: bedbug infestation Pneumonia Qualified Codes: J18.9 - Pneumonia, unspecified organism Acute on chronic heart failure Qualified Codes: I50.43 - Acute on chronic combined systolic (congestive) and diastolic (congestive) heart failure Disposition: ADMITTED INPATIENT Condition: Stable Admissions Decision to Admit Reason: Admit from ER (General) Decision to Admit/Date: Oct 21, 2020 Time/Decision to Admit Time: 15:23 Departure-Patient Inst. Referrals: [facility] (PCP) Primary Care Physician ROSY LEAL (Family) Primary Care Physician DOT LORENZ Oct 21, 2020 14:52
[2020-10-21 15:10] LABS: BASOPHILS % (AUTO) 1 % (0-10); EOSINOPHILS # (AUTO) 0.1 10^3/uL (0.0-0.3); EOSINOPHILS % (AUTO) 1 % (0-10); HEMATOCRIT 23 % (35-52); LYMPHOCYTES # (AUTO) 1.5 X 10^3 (1.0-4.0); LYMPHOCYTES % (AUTO) 21 % (12-44); MEAN CORPUSCULAR HEMOGLOBIN 23 pg (25-34); MEAN CORPUSCULAR HGB CONC 27 g/dL (32-36); MEAN CORPUSCULAR VOLUME 86 fL (80-99); MEAN PLATELET VOLUME 11.1 fL (9.0-12.2); MONOCYTES # (AUTO) 0.6 X 10^3 (0.0-1.0); MONOCYTES % (AUTO) 9 % (0-12); NEUTROPHILS # (AUTO) 4.9 X 10^3 (1.8-7.8); NEUTROPHILS % (AUTO) 69 % (42-75); PLATELET COUNT 335 10^3/uL (130-400); WHITE BLOOD COUNT 7.1 10^3/uL (4.3-11.0)
[2020-10-21 15:13] LABS: HEMOGLOBIN 6.1 g/dL (11.5-16.0)
[2020-10-21] MEDS ORDERED: NS IV 500 ML 500 ML IV SCH (15:15)
[2020-10-21] MEDS ORDERED: ASPIRIN 81 MG CHEW (CHILDREN'S ASA) PO ONE (15:15)
[2020-10-21 15:20] LABS: ALBUMIN 3.8 GM/DL (3.2-4.5); CHLORIDE 106 MMOL/L (98-107); POTASSIUM 3.6 MMOL/L (3.6-5.0); SODIUM 141 MMOL/L (135-145)
[2020-10-21 15:21] LABS: CALCIUM 8.5 MG/DL (8.5-10.1)
[2020-10-21 15:22] LABS: GLUCOSE 163 MG/DL (70-105); TOTAL PROTEIN 8.4 GM/DL (6.4-8.2)
[2020-10-21 15:23] LABS: CARBON DIOXIDE 23 MMOL/L (21-32)
[2020-10-21 15:24] LABS: BILIRUBIN,TOTAL 0.5 MG/DL (0.1-1.0)
[2020-10-21 15:26] LABS: ALKALINE PHOSPHATASE 90 U/L (40-136); CREATININE SERUM 1.17 MG/DL (0.60-1.30); GFR ESTIMATED 44
[2020-10-21 15:27] LABS: BUN/CREATININE RATIO 15
[2020-10-21 15:28] LABS: BILIRUBIN,URINE NEGATIVE (NEGATIVE); CLARITY,URINE CLEAR; COLOR,URINE YELLOW; GLUCOSE, URINE (UA) NEGATIVE (NEGATIVE); KETONES,URINE NEGATIVE (NEGATIVE); LEUKOCYTE ESTERASE ,URINE 1+ (NEGATIVE); NITRITE,URINE NEGATIVE (NEGATIVE); PH,URINE 5.5 (5-9); PROTEIN,URINE 1+ (NEGATIVE)
[2020-10-21 15:29] LABS: ABG BASE EXCESS 0.5 MMOL/L (-2.5-2.5); ABG OXYGEN SATURATION 101 % (94-100); ABG PCO2 48 MMHG (35-45); ABG PO2 195 MMHG (79-93); ABG TCO2 27.5 MMOL/L (21.0-31.0)
[2020-10-21 15:29] LABS: ALANINE AMINOTRANSFERASE 12 U/L (0-55)
[2020-10-21 15:37] LABS: ABG PH 7.34 (7.37-7.43); ALLENS TEST POS
[2020-10-21 15:38] LABS: INSPIRED O2 0; PATIENT TEMP 35.2; VENTILATOR NO
--- NOTE | 2020-10-21 15:44 | Diagnostic Imaging Report ---
INDICATION: Shortness of air. TIME OF EXAM: 03:25 p.m. COMPARISON: Comparison is made with prior chest from 09/27/2016. FINDINGS: Heart is enlarged but stable. There may be some minimal infiltrate in the right midlung field. Otherwise, lungs are clear. There are some basilar interstitial changes which may be chronic. There is no effusion or pneumothorax. IMPRESSION: Cardiomegaly and questionable minimal patchy infiltrate in the right midlung. Dictated by: Dictated on workstation # [id number]
[2020-10-21 15:52] LABS: BACTERIA,URINE LARGE /HPF; WBC,URINE 25-50 /HPF
[2020-10-21] MEDS ORDERED: methylPREDNISolone 125 MG (Solu-MEDROL) VIAL IVP ONE (16:00)
[2020-10-21] MEDS ORDERED: AZITHROMYCIN 250 MG TAB (ZITHROMAX) PO ONE (16:00)
[2020-10-21] MEDS ORDERED: cefTRIAXone FOR IV USE 1,000 MG in WATER (STERILE) FOR INJECTION 10 ML IV ONE (16:00)
[2020-10-21] MEDS ORDERED: FUROSEMIDE 40 MG/4 ML INJ (LASIX) IVP ONE (16:15)
[2020-10-21] MEDS ORDERED: ACETAMINOPHEN 325 MG TABLET PO PRN (18:00)
[2020-10-21] MEDS ORDERED: CATHETER FLUSH 10 ML SYR IV PRN (18:00)
[2020-10-21] MEDS ORDERED: FUROSEMIDE 40 MG/4 ML INJ (LASIX) IV NR (18:00)
[2020-10-21 18:31] VITALS: BP 187/84
[2020-10-21 18:40] VITALS: BP 187/84
[2020-10-21] MEDS ORDERED: RT-ALBUTEROL SULF 2.5 MG/3 ML PRE-MIX VIAL INH PRN (19:30)
[2020-10-21 19:44] VITALS: BP 140/83
[2020-10-21] MEDS ORDERED: NS IV 500 ML 500 ML ONE (20:43)
[2020-10-21] MEDS: RT-ALBUTEROL SULF 2.5 MG/3 ML PRE-MIX VIAL INH SCH (21:12)
[2020-10-21 21:25] VITALS: BP 148/74
[2020-10-21 21:42] VITALS: BP 162/91
[2020-10-21] MEDS: NS IV 500 ML 500 ML IV SCH (21:52)
[2020-10-21] MEDS: CATHETER FLUSH 10 ML SYR IV SCH (22:08)
[2020-10-22] VITALS (12 sets, daily range): BP systolic 134–180; BP diastolic 64–99
[2020-10-22] MEDS ORDERED: meTOprolol TARTRATE 50 MG (LOPRESSOR) TAB ONE (01:11)
[2020-10-22] MEDS ORDERED: meTOproloL SUCCINATE 50 MG (TOPROL XL) TAB PO ONE (01:15)
[2020-10-22] MEDS: RT-ALBUTEROL SULF 2.5 MG/3 ML PRE-MIX VIAL INH SCH ×4 (03:11→18:25)
[2020-10-22 05:55] LABS: BASOPHILS % (AUTO) 0 % (0-10); EOSINOPHILS % (AUTO) 0 % (0-10); HEMATOCRIT 28 % (35-52); HEMOGLOBIN 7.9 g/dL (11.5-16.0); LYMPHOCYTES # (AUTO) 0.7 10^3/uL (1.0-4.0); LYMPHOCYTES % (AUTO) 14 % (12-44); MEAN CORPUSCULAR HEMOGLOBIN 24 pg (25-34); MEAN CORPUSCULAR HGB CONC 29 g/dL (32-36); MEAN CORPUSCULAR VOLUME 84 fL (80-99); MEAN PLATELET VOLUME 11.5 fL (9.0-12.2); MONOCYTES # (AUTO) 0.2 10^3/uL (0.0-1.0); MONOCYTES % (AUTO) 4 % (0-12); NEUTROPHILS % (AUTO) 81 % (42-75); PLATELET COUNT 245 10^3/uL (130-400); WHITE BLOOD COUNT 4.9 10^3/uL (4.3-11.0)
[2020-10-22 06:05] LABS: ALBUMIN 3.6 GM/DL (3.2-4.5)
[2020-10-22 06:06] LABS: POTASSIUM 3.9 MMOL/L (3.6-5.0)
[2020-10-22 06:07] LABS: CALCIUM 8.2 MG/DL (8.5-10.1)
[2020-10-22] MEDS: CATHETER FLUSH 10 ML SYR IV SCH ×3 (06:07→20:08)
[2020-10-22 06:08] LABS: TOTAL PROTEIN 8.1 GM/DL (6.4-8.2)
[2020-10-22 06:10] LABS: BILIRUBIN,TOTAL 0.7 MG/DL (0.1-1.0)
[2020-10-22 06:12] LABS: CREATININE SERUM 1.13 MG/DL (0.60-1.30)
[2020-10-22] MEDS: AZITHROMYCIN 250 MG TAB (ZITHROMAX) PO SCH (09:32)
[2020-10-22] MEDS: meTOproloL SUCCINATE 50 MG (TOPROL XL) TAB PO SCH (09:32)
[2020-10-22] MEDS: ASPIRIN 81 MG CHEW (CHILDREN'S ASA) PO SCH (09:33)
--- NOTE | 2020-10-22 10:01 | History & Physical ---
HPI History of Present Illness: 79 yo female came to ER due to shortness of breath that started yesterday morning. Denies previous problems and does not use supplemental oxygen at baseline. She denies essentially all other ROS. She feels the same today. Source: patient Date seen by provider: Oct 22, 2020 Time Seen by Provider: 09:58 Attending Physician Aaron Olsen MD [facility] [place]Counts Include [facility] At [facility] Consult Date of Admission Oct 21, 2020 at 16:15 Home Medications Home Medications Reviewed patient Home Medication Reconciliation performed by pharmacy medication reconciliations fish roe technician and/or nursing. Patients Allergies have been reviewed. Allergies Coded Allergies: cortisone (Verified Allergy, Unknown, 01/30/07) diphenhydramine (Verified Allergy, Unknown, 01/30/07) penicillin G (Verified Allergy, Unknown, 01/30/07) AQA-Zvnyuh-Rrnbzw Hx Patient Social History Smoking Status: Former Smoker 2nd Hand Smoke Exposure: Yes Recent Hopitalizations: No Alcohol Use?: No Have you traveled recently?: No Immunizations Up To Date Tetanus Booster (TDap): Less than 5yrs Date of Pneumonia Vaccine: Mar 23, 2016 Date of Influenza Vaccine: Mar 23, 2016 Past Medical History PMHx: HTN CHF SurgHx: Cholecystectomy C section Hysterectomy Breast biopsy Family Medical History Significant Family History: Cancer (mother uterine) Review of Systems ([facility]) Constitutional: No fever EENTM: No nose congestion, No throat pain Respiratory: cough (admits occasional), short of breath Gastrointestinal: No abdominal pain, No constipation, No diarrhea, No melena, No nausea, No vomiting Genitourinary: No dysuria Reviewed Test Results Reviewed Test Results Lab Laboratory Tests Test 10/21/20 14:45 10/21/20 15:04 10/21/20 15:10 10/21/20 15:13 Range/Units White Blood Count 7.1 4.3-11.0 10^3/uL Red Blood Count 2.64 L 3.80-5.11 10^6/uL Hemoglobin 6.1 *L 11.5-16.0 g/dL Hematocrit 23 L 35-52 % Mean Corpuscular Volume 86 80-99 fL Mean Corpuscular Hemoglobin 23 L 25-34 pg Mean Corpuscular Hemoglobin Concent 27 L 32-36 g/dL Red Cell Distribution Width 16.8 H 10.0-14.5 % Platelet Count 335 130-400 10^3/uL Mean Platelet Volume 11.1 9.0-12.2 fL Immature Granulocyte % (Auto) 0 % Neutrophils (%) (Auto) 69 42-75 % Lymphocytes (%) (Auto) 21 12-44 % Monocytes (%) (Auto) 9 0-12 % Eosinophils (%) (Auto) 1 0-10 % Basophils (%) (Auto) 1 0-10 % Neutrophils # (Auto) 4.9 1.8-7.8 X 10^3 Lymphocytes # (Auto) 1.5 1.0-4.0 X 10^3 Monocytes # (Auto) 0.6 0.0-1.0 X 10^3 Eosinophils # (Auto) 0.1 0.0-0.3 10^3/uL Basophils # (Auto) 0.0 0.0-0.1 10^3/uL Immature Granulocyte # (Auto) 0.0 0.0-0.1 10^3/uL Sodium Level 141 135-145 MMOL/L Potassium Level 3.6 3.6-5.0 MMOL/L Chloride Level 106 98-107 MMOL/L Carbon Dioxide Level 23 21-32 MMOL/L Anion Gap 12 5-14 MMOL/L Blood Urea Nitrogen 17 7-18 MG/DL Creatinine 1.17 0.60-1.30 MG/DL Estimat Glomerular Filtration Rate 44 BUN/Creatinine Ratio 15 Glucose Level 163 H 70-105 MG/DL Calcium Level 8.5 8.5-10.1 MG/DL Corrected Calcium 8.7 8.5-10.1 MG/DL Total Bilirubin 0.5 0.1-1.0 MG/DL Aspartate Amino Transf (AST/SGOT) 22 5-34 U/L Alanine Aminotransferase (ALT/SGPT) 12 0-55 U/L Alkaline Phosphatase 90 40-136 U/L Troponin I < 0.028 <0.028 NG/ML C-Reactive Protein High Sensitivity 0.76 H 0.00-0.50 MG/DL B-Type Natriuretic Peptide 2056.4 H <100.0 PG/ML Total Protein 8.4 H 6.4-8.2 GM/DL Albumin 3.8 3.2-4.5 GM/DL Coronavirus 2019 (SUE) Negative Negative Blood Gas Puncture Site RRAD Blood Gas Patient Temperature 35.2 Arterial Blood pH 7.34 *L 7.37-7.43 Arterial Blood Partial Pressure CO2 48 H 35-45 MMHG Arterial Blood Partial Pressure O2 195 H 79-93 MMHG Arterial Blood HCO3 26 23-27 MMOL/L Arterial Blood Total CO2 27.5 21.0-31.0 MMOL/L Arterial Blood Oxygen Saturation 101 H 94-100 % Arterial Blood Base Excess 0.5 -2.5-2.5 MMOL/L Iam Test POS Blood Gas Ventilator Setting NO Blood Gas Inspired Oxygen 0 Urine Color YELLOW Urine Clarity CLEAR Urine pH 5.5 5-9 Urine Specific [place] >=1.030 1.016-1.022 Urine Protein 1+ H NEGATIVE Urine Glucose (UA) NEGATIVE NEGATIVE Urine Ketones NEGATIVE NEGATIVE Urine Nitrite NEGATIVE NEGATIVE Urine Bilirubin NEGATIVE NEGATIVE Urine Urobilinogen 1.0 < = 1.0 MG/DL Urine Leukocyte Esterase 1+ H NEGATIVE Urine RBC (Auto) NEGATIVE NEGATIVE Urine RBC NONE /HPF Urine WBC 25-50 H /HPF Urine Squamous Epithelial Cells 10-25 H /HPF Urine Crystals NONE /LPF Urine Bacteria LARGE H /HPF Urine Casts NONE /LPF Urine Mucus NEGATIVE /LPF Urine Culture Indicated YES Test 10/22/20 05:05 Range/Units White Blood Count 4.9 4.3-11.0 10^3/uL Red Blood Count 3.28 L 3.80-5.11 10^6/uL Hemoglobin 7.9 L 11.5-16.0 g/dL Hematocrit 28 L 35-52 % Mean Corpuscular Volume 84 80-99 fL Mean Corpuscular Hemoglobin 24 L 25-34 pg Mean Corpuscular Hemoglobin Concent 29 L 32-36 g/dL Red Cell Distribution Width 16.0 H 10.0-14.5 % Platelet Count 245 130-400 10^3/uL Mean Platelet Volume 11.5 9.0-12.2 fL Immature Granulocyte % (Auto) 1 % Neutrophils (%) (Auto) 81 H 42-75 % Lymphocytes (%) (Auto) 14 12-44 % Monocytes (%) (Auto) 4 0-12 % Eosinophils (%) (Auto) 0 0-10 % Basophils (%) (Auto) 0 0-10 % Neutrophils # (Auto) 4.0 1.8-7.8 10^3/uL Lymphocytes # (Auto) 0.7 L 1.0-4.0 10^3/uL Monocytes # (Auto) 0.2 0.0-1.0 10^3/uL Eosinophils # (Auto) 0.0 0.0-0.3 10^3/uL Basophils # (Auto) 0.0 0.0-0.1 10^3/uL Immature Granulocyte # (Auto) 0.1 0.0-0.1 10^3/uL Sodium Level 137 135-145 MMOL/L Potassium Level 3.9 3.6-5.0 MMOL/L Chloride Level 104 98-107 MMOL/L Carbon Dioxide Level 20 L 21-32 MMOL/L Anion Gap 13 5-14 MMOL/L Blood Urea Nitrogen 22 H 7-18 MG/DL Creatinine 1.13 0.60-1.30 MG/DL Estimat Glomerular Filtration Rate 46 BUN/Creatinine Ratio 19 Glucose Level 146 H 70-105 MG/DL Calcium Level 8.2 L 8.5-10.1 MG/DL Corrected Calcium 8.5 8.5-10.1 MG/DL Total Bilirubin 0.7 0.1-1.0 MG/DL Aspartate Amino Transf (AST/SGOT) 19 5-34 U/L Alanine Aminotransferase (ALT/SGPT) 12 0-55 U/L Alkaline Phosphatase 95 40-136 U/L Total Protein 8.1 6.4-8.2 GM/DL Albumin 3.6 3.2-4.5 GM/DL Radiology CXR: IMPRESSION: Cardiomegaly and questionable minimal patchy infiltrate in the right midlung. Physical Exam-([facility]) Physical Exam Vital Signs VS - Last 72 Hours, by Label 10/21/20 10/21/20 10/21/20 10/21/20 14:34 16:40 17:24 18:25 Temp 35.2 35.2 Pulse 94 93 Resp 20 20 B/P (MAP) 171/99 (123) 157/81 (123) Pulse Ox 97 O2 Delivery Nasal Cannula Nasal Cannula Room Air O2 Flow Rate 1.00 1.00 10/21/20 10/21/20 10/21/20 10/21/20 18:31 18:40 19:44 20:00 Temp 35.8 35.8 35.8 Pulse 101 101 99 Resp 18 18 B/P (MAP) 187/84 (118) 140/83 (102) Pulse Ox 96 96 93 98 O2 Delivery Room Air Room Air Room Air FiO2 21 10/21/20 10/21/20 10/21/20 10/22/20 21:12 21:25 21:42 00:19 Temp 36.0 35.9 36.0 Pulse 96 105 78 Resp B/P (MAP) 148/74 162/91 163/77 Pulse Ox 94 96 98 94 O2 Delivery Room Air Room Air Room Air Room Air 10/22/20 10/22/20 10/22/20 10/22/20 00:21 00:43 01:07 03:07 Temp 36.0 35.9 36.1 36.2 Pulse 78 78 96 96 Resp 20 B/P (MAP) 163/77 (105) 174/83 180/84 176/99 (124) Pulse Ox 91 92 92 95 O2 Delivery Room Air Room Air Room Air Room Air 10/22/20 10/22/20 10/22/20 10/22/20 03:11 03:38 06:50 07:58 Temp 36.2 36.0 Pulse 98 87 Resp B/P (MAP) 171/99 164/80 (108) Pulse Ox 97 97 91 96 O2 Delivery Room Air Room Air Room Air Room Air 10/22/20 10/22/20 10/22/20 10/22/20 08:00 09:05 12:15 12:39 Temp 36.2 Pulse 96 86 78 Resp 40 B/P (MAP) 142/79 (100) Pulse Ox 94 O2 Delivery Room Air Room Air 10/22/20 14:26 Pulse Ox 95 O2 Delivery Room Air Capillary Refill : Less Than 3 Seconds General Appearance: no apparent distress Respiratory: lungs clear, normal breath sounds Cardiovascular: regular rate, rhythm, no murmur Gastrointestinal: normal bowel sounds, non tender, soft Extremities: no pedal edema Neurologic/Psychiatric: alert, oriented x 3 Skin: normal color, warm/dry Assessment/Plan Assessment/Plan Admission Status: Inpatient Order (span 2 midnights) Reason for Inpatient Admission: Severe anemia with multiple underlying comorbidities (1) Acute on chronic heart failure Status: Acute Assessment & Plan: BNP elevated, but not requiring supplemental oxygen. Last echo 2016, will repeat. 40 mg IV lasix given 10/21. Qualifiers: Qualified Codes: I50.43 - Acute on chronic combined systolic (congestive) and diastolic (congestive) heart failure (2) Pneumonia Status: Acute Assessment & Plan: Azithromycin, ceftriaxone Qualifiers: Qualified Codes: J18.9 - Pneumonia, unspecified organism (3) Anemia Status: Acute Assessment & Plan: s/p transfusion with improvement. Unclear etiology, consult surgery. Qualifiers: Qualified Codes: D64.9 - Anemia, unspecified (4) Hypertension Status: Chronic Qualifiers: Qualified Codes: I10 - Essential (primary) hypertension (5) Hyperlipidemia Status: Chronic (6) DVT prophylaxis Status: Acute Assessment & Plan: No pharmacologic due to severe anemia. AARON OLSEN MD Oct 22, 2020 10:01
[2020-10-22] MEDS ORDERED: MONT10TA32 PO (10:07)
[2020-10-22] MEDS ORDERED: ASPI-1238 PO (10:07)
[2020-10-22] MEDS ORDERED: FLT11013 IH (10:07)
[2020-10-22] MEDS ORDERED: LISI40TA9 PO (10:07)
[2020-10-22] MEDS ORDERED: ATOR10TA66 PO (10:07)
[2020-10-22] MEDS ORDERED: ACHD5005 PO (10:07)
[2020-10-22] MEDS ORDERED: POLY17PO6 PO (10:07)
[2020-10-22] MEDS ORDERED: FLUTICASONE 110 MCG INHALER (FLOVENT) 12 GM IH PRN (15:00)
[2020-10-22] MEDS ORDERED: polyethylene glycoL POWDER 17 GM (MIRALAX) PACK PO PRN (15:00)
[2020-10-22] MEDS: NS IV 500 ML 500 ML IV SCH (15:11)
[2020-10-22] MEDS: cefTRIAXone 1,000 MG/SWFI 10 ML IV PUSH IV SCH ×2 (15:43)
[2020-10-22] MEDS: HYDROcodone/APAP 5 MG/325 MG (LORTAB) TAB PO PRN (15:44)
--- NOTE | 2020-10-22 16:19 | Consultation - Surgery ---
History of Present Illness History of Present Illness Patient Consulted On(za/time) 10/22/20 16:14 Date Seen by Provider: Oct 22, 2020 Time Seen by Provider: 16:14 History of Present Illness Consult requested by Dr. Olsen for anemia. Patient is an 79 year old female who began having shortness of breath yesterday. She states nothing made it better or worse. Seemed to walk without worsening shortness of breath. Patient found to be anemic and transfused. Not seen bloody or dark stools. Never had endoscopy. Per Nursing was found to have multiple large bed bugs at time of admission. Chest x ray right patchy infiltrate. On antibiotics for pneumonia. Allergies and Home Medications Allergies Coded Allergies: cortisone (Verified Allergy, Unknown, 01/30/07) diphenhydramine (Verified Allergy, Unknown, 01/30/07) penicillin G (Verified Allergy, Unknown, 01/30/07) Home Medications Aspirin 81 Mg Tablet.dr, 81 MG PO DAILY, (Reported) Atorvastatin Calcium 10 Mg Tablet, 10 MG PO DAILY, (Reported) Cetirizine HCl 10 Mg Tablet, 10 MG PO DAILY, (Reported) Fluticasone Propionate 1 Ea Aero, 1 EA IH BID PRN for SHORTNESS OF BREATH, (Reported) Hydrocodone/Acetaminophen 1 Each Tablet, 1 EA PO BID PRN for PAIN-MODERATE (5- 7), (Reported) Lisinopril 40 Mg Tablet, 40 MG PO DAILY, (Reported) Metoclopramide HCl 10 Mg Tablet, 10 MG PO BID, (Reported) Metoprolol Succinate 50 Mg Tab.er.24h, 50 MG PO DAILY, (Reported) Montelukast Sodium 10 Mg Tablet, 10 MG PO HS, (Reported) Paroxetine HCl 20 Mg Tablet, 20 MG PO DAILY, (Reported) Polyethylene Glycol 3350 17 Gm Powd.pack, 17 GM PO DAILY PRN for CONSTIPATION- 2ND LINE, (Reported) Patient Home Medication List Home Medication List Reviewed: Yes Past [id number] Hx Patient Social History Smoking Status: Former Smoker Former Smoker, Quit: Jul 30, 2016 Type Used: Cigarettes 2nd Hand Smoke Exposure: Yes Recent Hopitalizations: No Alcohol Use?: No Have you traveled recently?: No Immunizations Up To Date Tetanus Booster (TDap): Less than 5yrs PED Vaccines UTD: Yes Date of Pneumonia Vaccine: Mar 23, 2016 Date of Influenza Vaccine: Mar 23, 2016 Seasonal Allergies Seasonal Allergies: Yes Surgeries History of Surgeries: Yes (RIGHT BREAST BIOPSY,ROTATOR CUFF) Surgeries: Section, Gallbladder, Hysterectomy, Oophorectomy, Orthopedic, Tonsillectomy Respiratory History of Respiratory Disorde: Yes Respiratory Disorders: Asthma, COPD Cardiovascular History of Cardiac Disorders: Yes Cardiac Disorders: Hypertension Neurological History of Neurological Disord: No Reproductive System Hx Reproductive Disorders: No Sexually Transmitted Disease: No Genitourinary History of Genitourinary Disor: No Genitourinary Disorders: UTI-Chronic Gastrointestinal History of Gastrointestinal Di: No Musculoskeletal History of Musculoskeletal Dis: No Endocrine History of Endocrine Disorders: No HEENT History of HEENT Disorders: No Cancer History of Cancer: No Psychosocial History of Psychiatric Problem: No Blood Transfusions History of Blood Disorders: Yes Adverse Reaction to a Blood Tr: No Reviewed Nursing Assessment Reviewed/Agree w Nursing PMH: Yes Family Medical History Significant Family History: No Pertinent Family Hx, Cancer (mother uterine) Review of Systems-General Constitutional: No chills, No diaphoresis EENTM: No blurred vision, No double vision Respiratory: No cough; short of breath Cardiovascular: No chest pain, No palpitations Gastrointestinal: No abdominal pain, No nausea, No vomiting Genitourinary: No decreased output, No discharge Musculoskeletal: No back pain, No gout, No joint pain Skin: No change in color, No change in hair/nails Psychiatric/Neurological: Denies Anxiety, Denies Depressed, Denies Emotional Problems All Other Systems Reviewed Negative Unless Noted: Yes (Negative excepted noted.) Physical Exam-General Problems Physical Exam Vital Signs Vital Signs - First Documented 10/21/20 10/21/20 10/21/20 14:34 16:40 18:40 Temp 35.2 Pulse 94 Resp 20 B/P (MAP) 171/99 (123) Pulse Ox 97 O2 Delivery Nasal Cannula O2 Flow Rate 1.00 FiO2 21 Capillary Refill : Less Than 3 Seconds General Appearance: WD/WN, no apparent distress; No moderate distress, No severe distress HEENT: PERRL/EOMI, normal ENT inspection Neck: non-tender, supple Respiratory: chest non-tender, no respiratory distress, no accessory muscle use Cardiovascular: regular rate, rhythm, no JVD Gastrointestinal: non tender, soft, no organomegaly Rectal: deferred (at this time) Back: normal inspection, no CVA tenderness Extremities: non-tender, normal inspection Neurologic/Psychiatric: alert, normal mood/affect, oriented x 3 Skin: normal color, warm/dry (mulitple scabs) Lymphatic: no adenopathy Data Review Labs Laboratory Tests 10/22/20 05:05: White Blood Count 4.9, Red Blood Count 3.28L, Hemoglobin 7.9L, Hematocrit 28L, Mean Corpuscular Volume 84, Mean Corpuscular Hemoglobin 24L, Mean Corpuscular Hemoglobin Concent 29L, Red Cell Distribution Width 16.0H, Platelet Count 245, Mean Platelet Volume 11.5, Immature Granulocyte % (Auto) 1, Neutrophils (%) (Auto) 81H, Lymphocytes (%) (Auto) 14, Monocytes (%) (Auto) 4, Eosinophils (%) (Auto) 0, Basophils (%) (Auto) 0, Neutrophils # (Auto) 4.0, Lymphocytes # (Auto) 0.7L, Monocytes # (Auto) 0.2, Eosinophils # (Auto) 0.0, Basophils # (Auto) 0.0, Immature Granulocyte # (Auto) 0.1, Sodium Level 137, Potassium Level 3.9, Ch loride Level 104, Carbon Dioxide Level 20L, Anion Gap 13, Blood Urea Nitrogen 22H, Creatinine 1.13, Estimat Glomerular Filtration Rate 46, BUN/Creatinine Ratio 19, Glucose Level 146H, Calcium Level 8.2L, Corrected Calcium 8.5, Total Bilirubin 0.7, Aspartate Amino Transf (AST/SGOT) 19, Alanine Aminotransferase (ALT/SGPT) 12, Alkaline Phosphatase 95, Total Protein 8.1, Albumin 3.6 10/22/20 13:44: Lab Scanned Report Transfusion Reaction Form Microbiology 10/21/20 Blood Culture - Preliminary, Resulted No growth 10/21/20 Urine Culture - Preliminary, Resulted Escherichia coli 10/21/20 Influenza Types A,B Antigen (DAYANA) - Final, Complete Assessment/Plan Assessment/Plan Assessment/Plan anemia shortness of breath right pneumonia bed bugs had prbc transfusion follow hgb chronic medical issues transfuse prbc as needed, egd/colonoscopy inpatient vs outpatient continue antibiotics for pneumonia Protonix ANDREA MURRAY DO Oct 22, 2020 16:19
[2020-10-22] MEDS: PANTOPRAZOLE 40 MG (PROTONIX) TAB PO SCH (17:28)
[2020-10-22] MEDS: MONTELUKAST 10 MG (SINGULAIR) TAB PO SCH (20:08)
[2020-10-22] MEDS: METOCLOPRAMIDE 10 MG (REGLAN) TAB PO SCH (20:08)
[2020-10-23] MEDS: RT-ALBUTEROL SULF 2.5 MG/3 ML PRE-MIX VIAL INH SCH ×4 (01:52→21:47)
[2020-10-23 04:00] VITALS: BP 152/68
[2020-10-23] MEDS: CATHETER FLUSH 10 ML SYR IV SCH ×3 (06:25→19:47)
[2020-10-23 07:10] VITALS: BP 175/79
[2020-10-23] MEDS: NS IV 500 ML 500 ML IV SCH ×2 (07:13→23:57)
[2020-10-23] MEDS: ASPIRIN 81 MG CHEW (CHILDREN'S ASA) PO SCH (07:41)
[2020-10-23] MEDS: METOCLOPRAMIDE 10 MG (REGLAN) TAB PO SCH ×2 (07:42→19:47)
[2020-10-23] MEDS: PANTOPRAZOLE 40 MG (PROTONIX) TAB PO SCH (07:42)
[2020-10-23] MEDS: LORATADINE (CLARITIN) 10 MG TAB PO SCH (07:42)
[2020-10-23] MEDS: HYDROcodone/APAP 5 MG/325 MG (LORTAB) TAB PO PRN ×2 (07:42→19:47)
[2020-10-23] MEDS: lisINopril 40 MG (PRINIVIL) TABLET PO SCH (07:42)
[2020-10-23] MEDS: AZITHROMYCIN 250 MG TAB (ZITHROMAX) PO SCH (07:42)
[2020-10-23] MEDS: PARoxetine 20 MG (PAXIL) TAB PO SCH (07:42)
[2020-10-23] MEDS: meTOproloL SUCCINATE 50 MG (TOPROL XL) TAB PO SCH (07:43)
[2020-10-23 08:17] LABS: BASOPHILS % (AUTO) 0 % (0-10); EOSINOPHILS # (AUTO) 0.1 10^3/uL (0.0-0.3); EOSINOPHILS % (AUTO) 2 % (0-10); HEMATOCRIT 28 % (35-52); HEMOGLOBIN 8.3 g/dL (11.5-16.0); LYMPHOCYTES # (AUTO) 1.4 10^3/uL (1.0-4.0); LYMPHOCYTES % (AUTO) 20 % (12-44); MEAN CORPUSCULAR HEMOGLOBIN 25 pg (25-34); MEAN CORPUSCULAR HGB CONC 29 g/dL (32-36); MEAN CORPUSCULAR VOLUME 84 fL (80-99); MEAN PLATELET VOLUME 11.1 fL (9.0-12.2); MONOCYTES # (AUTO) 0.5 10^3/uL (0.0-1.0); MONOCYTES % (AUTO) 7 % (0-12); NEUTROPHILS # (AUTO) 4.9 10^3/uL (1.8-7.8); NEUTROPHILS % (AUTO) 71 % (42-75); PLATELET COUNT 230 10^3/uL (130-400); WHITE BLOOD COUNT 6.9 10^3/uL (4.3-11.0)
[2020-10-23 08:32] LABS: CALCIUM 7.9 MG/DL (8.5-10.1); CREATININE SERUM 1.2 MG/DL (0.60-1.30); POTASSIUM 3.9 MMOL/L (3.6-5.0)
[2020-10-23] MEDS ORDERED: meTOproloL SUCCINATE 50 MG (TOPROL XL) TAB PO SCH (09:00)
--- NOTE | 2020-10-23 11:21 | Progress Note - Hospitalist ---
Subjective HPI/CC On Admission Date Seen by Provider: Oct 23, 2020 Time Seen by Provider: 10:15 Subjective/Events-last exam Patient is without complaint. She says her breathing is better. Hemoglobin is remaining stable. Review of Systems Pulmonary: Dyspnea Neurological: Weakness Objective Exam Vital Signs Vital Signs Date Time Temp Pulse Resp B/P (MAP) Pulse Ox O2 Delivery O2 Flow Rate FiO2 10/23/20 09:53 94 Room Air 10/23/20 07:10 36.0 63 26 175/79 (111) 10/21/20 18:40 21 10/21/20 17:24 1.00 Capillary Refill : Less Than 3 Seconds General Appearance: Chronically ill HEENT: Other (Edentulous) Neck: Normal Inspection, Limited Range of Motion Respiratory: Normal Breath Sounds, No Accessory Muscle Use, No Respiratory Distress, Decreased Breath Sounds Cardiovascular: Regular Rate, Rhythm, Systolic Murmur Gastrointestinal: Non Tender, Soft Rectal: Deferred Extremity: Pedal Edema Neurologic/Psychiatric: Alert, Normal Mood/Affect Skin: Pallor Results/Procedures Lab Laboratory Tests 10/23/20 08:05 Patient resulted labs reviewed. Assessment/Plan Assessment and Plan Assess & Plan/Chief Complaint Exacerbation of congestive heart failure. Last echo 2016 showed an ejection fraction of about 35% with global hypokinesis and mitral regurgitation. Dread echo here pending Anemia of uncertain etiology currently hemoglobin stable-discussed with surgery who will do outpatient evaluation with colonoscopy Urinary tract infection with E. coli sensitive to Rocephin Possible right middle lobe pneumonia on Zithromax and Rocephin afebrile Weakness- SHUKRI CLEMENS MD Oct 23, 2020 11:21
[2020-10-23 11:30] VITALS: BP 162/72
[2020-10-23] MEDS ORDERED: FUROSEMIDE 40 MG/4 ML INJ (LASIX) IVP ONE (11:30)
--- NOTE | 2020-10-23 11:40 | Progress Note - Surgery ---
Subjective Date Seen by a Provider: Oct 23, 2020 Time Seen by a Provider: 11:40 Subjective/Events-last exam Patient breathing okay. Hemoglobin stable. Patient with no other symptoms at this time. She denies any nausea vomiting fever sweats chills shortness of breath or chest pain. Objective Exam Vital Signs Date Time Temp Pulse Resp B/P (MAP) Pulse Ox O2 Delivery O2 Flow Rate FiO2 10/23/20 11:30 36.6 64 24 162/72 (102) 94 Room Air 10/23/20 09:53 94 Room Air 10/23/20 08:00 Room Air 10/23/20 07:10 36.0 63 26 175/79 (111) 94 Room Air 10/23/20 07:00 64 10/23/20 04:00 36.6 68 16 152/68 (96) 93 Room Air 10/23/20 01:52 91 Room Air 10/23/20 01:00 60 10/22/20 23:49 36.4 64 20 150/67 (94) 94 Room Air 10/22/20 20:14 Room Air 10/22/20 19:50 36.2 65 26 134/64 (87) 94 Room Air 10/22/20 19:01 67 10/22/20 18:26 90 Room Air 10/22/20 16:20 36.2 84 20 163/77 (105) 94 Room Air 10/22/20 14:26 95 Room Air 10/22/20 12:39 78 10/22/20 12:15 36.2 86 40 142/79 (100) 94 Room Air I & O 10/23/20 07:00 Intake Total 1520 ml Output Total 775 ml Balance 745 ml Capillary Refill : Less Than 3 Seconds General Appearance: No Apparent Distress, Chronically ill HEENT: PERRL/EOMI, Other (Edentulous) Neck: Normal Inspection, Limited Range of Motion Respiratory: Normal Breath Sounds, No Accessory Muscle Use, No Respiratory Di stress, Decreased Breath Sounds Cardiovascular: Regular Rate, Rhythm, Systolic Murmur Gastrointestinal: non tender, soft, no organomegaly Extremity: Pedal Edema Neurologic/Psychiatric: Alert, Normal Mood/Affect Skin: Warm/Dry, Pallor, Other Lymphatic: No Adenopathy Results Lab Laboratory Tests 10/22/20 13:44: Lab Scanned Report Transfusion Reaction Form 10/23/20 08:05: White Blood Count 6.9, Red Blood Count 3.35L, Hemoglobin 8.3L, Hematocrit 28L, Mean Corpuscular Volume 84, Mean Corpuscular Hemoglobin 25, Mean Corpuscular Hemoglobin Concent 29L, Red Cell Distribution Width 16.9H, Platelet Count 230, M shanelle Platelet Volume 11.1, Immature Granulocyte % (Auto) 0, Neutrophils (%) (Auto) 71, Lymphocytes (%) (Auto) 20, Monocytes (%) (Auto) 7, Eosinophils (%) (Auto) 2, Basophils (%) (Auto) 0, Neutrophils # (Auto) 4.9, Lymphocytes # (Auto) 1.4, Monocytes # (Auto) 0.5, Eosinophils # (Auto) 0.1, Basophils # (Auto) 0.0, Immature Granulocyte # (Auto) 0.0, Sodium Level 137, Potassium Level 3.9, Chloride Level 104, Carbon Dioxide Level 22, Anion Gap 11, Blood Urea Nitrogen 32H, Creatinine 1.20, Estimat Glomerular Filtration Rate 43, BUN/Creatinine Ratio 27, Glucose Level 117H, Calcium Level 7.9L Microbiology 10/21/20 Blood Culture - Preliminary, Resulted No growth 10/21/20 Urine Culture - Final, Complete Escherichia coli 10/21/20 Influenza Types A,B Antigen (DAYANA) - Final, Complete Assessment/Plan Assessment/Plan Assessment/Plan anemia shortness of breath right pneumonia bed bugs had prbc transfusion follow hgb chronic medical issues transfuse prbc as needed, egd/colonoscopy outpatient if hemoglobin remains stable, otherwise inpatient continue antibiotics for pneumonia Protonix ANDREA MURRAY DO Oct 23, 2020 11:40
[2020-10-23] MEDS: cefTRIAXone 1,000 MG/SWFI 10 ML IV PUSH IV SCH ×2 (15:12)
[2020-10-23 15:50] VITALS: BP 155/79
[2020-10-23] MEDS ORDERED: TRIAMCINOLONE 0.1% CR (KENALOG) 15 GM TUBE TOP PRN (19:45)
[2020-10-23] MEDS: MONTELUKAST 10 MG (SINGULAIR) TAB PO SCH (19:47)
[2020-10-23 20:33] VITALS: BP 161/70
[2020-10-24 00:32] VITALS: BP 130/60
[2020-10-24] MEDS: RT-ALBUTEROL SULF 2.5 MG/3 ML PRE-MIX VIAL INH SCH ×4 (02:57→20:55)
[2020-10-24 04:39] VITALS: BP 145/63
[2020-10-24 05:25] LABS: BASOPHILS % (AUTO) 1 % (0-10); EOSINOPHILS # (AUTO) 0.2 10^3/uL (0.0-0.3); EOSINOPHILS % (AUTO) 4 % (0-10); HEMATOCRIT 28 % (35-52); LYMPHOCYTES # (AUTO) 1.4 10^3/uL (1.0-4.0); LYMPHOCYTES % (AUTO) 25 % (12-44); MEAN CORPUSCULAR HEMOGLOBIN 25 pg (25-34); MEAN CORPUSCULAR HGB CONC 29 g/dL (32-36); MEAN CORPUSCULAR VOLUME 86 fL (80-99); MONOCYTES # (AUTO) 0.6 10^3/uL (0.0-1.0); MONOCYTES % (AUTO) 10 % (0-12); NEUTROPHILS # (AUTO) 3.4 10^3/uL (1.8-7.8); NEUTROPHILS % (AUTO) 60 % (42-75); PLATELET COUNT 185 10^3/uL (130-400); WHITE BLOOD COUNT 5.7 10^3/uL (4.3-11.0)
[2020-10-24 05:50] LABS: ALBUMIN 3.2 GM/DL (3.2-4.5); BILIRUBIN,TOTAL 0.4 MG/DL (0.1-1.0); CALCIUM 7.9 MG/DL (8.5-10.1); CREATININE SERUM 1.25 MG/DL (0.60-1.30); TOTAL PROTEIN 7.1 GM/DL (6.4-8.2)
[2020-10-24] MEDS: CATHETER FLUSH 10 ML SYR IV SCH ×3 (06:25→19:48)
[2020-10-24 08:00] VITALS: BP 161/70
--- NOTE | 2020-10-24 10:57 | Progress Note - Hospitalist ---
Subjective HPI/CC On Admission Date Seen by Provider: Oct 24, 2020 Time Seen by Provider: 10:15 Subjective/Events-last exam Patient says she is feeling better. She is sitting up in bed. Denies new problems. Review of Systems Pulmonary: Dyspnea Neurological: Weakness Objective Exam Vital Signs Vital Signs Date Time Temp Pulse Resp B/P (MAP) Pulse Ox O2 Delivery O2 Flow Rate FiO2 10/24/20 09:07 95 Room Air 10/24/20 08:00 36.4 70 24 161/70 (100) 10/21/20 18:40 21 10/21/20 17:24 1.00 Capillary Refill : Less Than 3 Seconds General Appearance: Chronically ill Neck: Limited Range of Motion Respiratory: Lungs Clear, Normal Breath Sounds, No Accessory Muscle Use, No Respiratory Distress Cardiovascular: No Gallop, Systolic Murmur Gastrointestinal: Normal Bowel Sounds, Non Tender, Soft Rectal: Deferred Back: Normal Inspection Extremity: Non Tender, Pedal Edema Results/Procedures Lab Laboratory Tests 10/24/20 05:07 Patient resulted labs reviewed. Assessment/Plan Assessment and Plan Assess & Plan/Chief Complaint Exacerbation of congestive heart failure. Last echo 2016 showed an ejection fraction of about 35% with global hypokinesis and mitral regurgitation. Repeat echo here pending. BMP is much improved-we will add Lasix twice daily Hypertension hopefully Lasix will improve this Anemia of uncertain etiology currently hemoglobin stable-discussed with surgery who will do outpatient evaluation with colonoscopy-hemoglobin is currently stable Urinary tract infection with E. coli sensitive to Rocephin Possible right middle lobe pneumonia on Zithromax and Rocephin afebrile Weakness-PT consult Possible discharge in a.m. SHUKRI CLEMENS MD Oct 24, 2020 10:57
[2020-10-24] MEDS: ASPIRIN 81 MG CHEW (CHILDREN'S ASA) PO SCH (11:10)
[2020-10-24] MEDS: meTOproloL SUCCINATE 50 MG (TOPROL XL) TAB PO SCH (11:10)
[2020-10-24] MEDS: PANTOPRAZOLE 40 MG (PROTONIX) TAB PO SCH (11:10)
[2020-10-24] MEDS: AZITHROMYCIN 250 MG TAB (ZITHROMAX) PO SCH (11:10)
[2020-10-24] MEDS: METOCLOPRAMIDE 10 MG (REGLAN) TAB PO SCH ×2 (11:10→19:48)
[2020-10-24] MEDS: lisINopril 40 MG (PRINIVIL) TABLET PO SCH (11:10)
[2020-10-24] MEDS: LORATADINE (CLARITIN) 10 MG TAB PO SCH (11:11)
[2020-10-24] MEDS: PARoxetine 20 MG (PAXIL) TAB PO SCH (11:11)
--- NOTE | 2020-10-24 14:02 | Progress Note - Surgery ---
Subjective Date Seen by a Provider: Oct 24, 2020 Time Seen by a Provider: 13:58 Subjective/Events-last exam Patient doing well. Hgb stable. No blood or dark stools. Denies n/v fever sweats chills shortness of breath or chest pain. Objective Exam Vital Signs Date Time Temp Pulse Resp B/P (MAP) Pulse Ox O2 Delivery O2 Flow Rate FiO2 10/24/20 13:00 70 10/24/20 09:07 95 Room Air 10/24/20 08:00 Room Air 10/24/20 08:00 36.4 70 24 161/70 (100) 94 Room Air 10/24/20 07:00 79 10/24/20 04:39 36.3 65 18 145/63 (90) 91 Room Air 10/24/20 02:57 96 Room Air 10/24/20 01:00 59 10/24/20 00:32 36.7 67 18 130/60 (83) 91 Room Air 10/23/20 21:47 99 Room Air 10/23/20 20:33 36.9 71 20 161/70 (100) 96 Room Air 10/23/20 20:04 Room Air 10/23/20 19:00 70 10/23/20 16:52 96 Room Air 10/23/20 15:50 36.8 74 22 155/79 (104) 96 Room Air I & O 10/24/20 07:00 Intake Total 1160 ml Output Total 1275 ml Balance -115 ml Capillary Refill : Less Than 3 Seconds General Appearance: No Apparent Distress, Chronically ill HEENT: PERRL/EOMI, Normal ENT Inspection, Other Neck: Limited Range of Motion Respiratory: Chest Non Tender, No Accessory Muscle Use, No Respiratory Distress Cardiovascular: Regular Rate, Rhythm, No Gallop Gastrointestinal: non tender, soft, no organomegaly Extremity: Normal Inspection, Non Tender, Pedal Edema Neurologic/Psychiatric: Alert, Normal Mood/Affect Skin: Warm/Dry, Pallor, Other (small scabs on extremities) Lymphatic: No Adenopathy Results Lab Laboratory Tests 10/24/20 05:07: White Blood Count 5.7, Red Blood Count 3.26L, Hemoglobin 8.0L, Hematocrit 28L, Mean Corpuscular Volume 86, Mean Corpuscular Hemoglobin 25, Mean Corpuscular Hemoglobin Concent 29L, Red Cell Distribution Width 16.8H, Platelet Count 185, Mean Platelet Volume 12.0, Immature Granulocyte % (Auto) 0, Neutrophils (%) (Auto) 60, Lymphocytes (%) (Auto) 25, Monocytes (%) (Auto) 10, Eosinophils (%) (Auto) 4, Basophils (%) (Auto) 1, Neutrophils # (Auto) 3.4, Lymphocytes # (Auto) 1.4, Monocytes # (Auto) 0.6, Eosinophils # (Auto) 0.2, Basophils # (Auto) 0.0, Immature Granulocyte # (Auto) 0.0, Sodium Level 137, Potassium Level 4.0, Chloride Level 102, Carbon Dioxide Level 22, Anion Gap 13, Blood Urea Nitrogen 37H, Creatinine 1.25, Estimat Glomerular Filtration Rate 41, BUN/Creatinine Ratio 30, Glucose Level 107H, Calcium Level 7.9L, Corrected Calcium 8.5, Total Bilirubin 0.4, Aspartate Amino Transf (AST/SGOT) 14, Alanine Aminotransferase (ALT/SGPT) 12, Alkaline Phosphatase 74, B-Type Natriuretic Peptide 286.1H, Total Protein 7.1, Albumin 3.2 Microbiology 10/21/20 Blood Culture - Preliminary, Resulted No growth 10/21/20 Urine Culture - Final, Complete Escherichia coli 10/21/20 Influenza Types A,B Antigen (DAYANA) - Final, Complete Assessment/Plan Assessment/Plan Assessment/Plan anemia shortness of breath right pneumonia bed bugs had prbc transfusion follow hgb chronic medical issues transfuse prbc as needed, egd/colonoscopy outpatient if hemoglobin remains stable continue antibiotics for pneumonia Protonix will sign off, call if needed. outpatient follow up ANDREA MURRAY DO Oct 24, 2020 14:02
[2020-10-24 16:07] VITALS: BP 143/76
[2020-10-24] MEDS: HYDROcodone/APAP 5 MG/325 MG (LORTAB) TAB PO PRN (17:44)
[2020-10-24] MEDS: FUROSEMIDE 20 MG (LASIX) TAB PO SCH (17:44)
[2020-10-24] MEDS: cefTRIAXone 1,000 MG/SWFI 10 ML IV PUSH IV SCH ×2 (17:44)
[2020-10-24] MEDS: MONTELUKAST 10 MG (SINGULAIR) TAB PO SCH (19:48)
[2020-10-25 00:13] VITALS: BP 131/62
[2020-10-25] MEDS: RT-ALBUTEROL SULF 2.5 MG/3 ML PRE-MIX VIAL INH SCH ×2 (02:45→10:35)
[2020-10-25] MEDS: CATHETER FLUSH 10 ML SYR IV SCH ×2 (06:03→10:31)
[2020-10-25] MEDS: FUROSEMIDE 20 MG (LASIX) TAB PO SCH (06:03)
[2020-10-25 06:37] LABS: BASOPHILS % (AUTO) 0 % (0-10); EOSINOPHILS # (AUTO) 0.2 10^3/uL (0.0-0.3); EOSINOPHILS % (AUTO) 3 % (0-10); HEMATOCRIT 29 % (35-52); HEMOGLOBIN 8.1 g/dL (11.5-16.0); LYMPHOCYTES # (AUTO) 1.3 10^3/uL (1.0-4.0); LYMPHOCYTES % (AUTO) 21 % (12-44); MEAN CORPUSCULAR HEMOGLOBIN 24 pg (25-34); MEAN CORPUSCULAR HGB CONC 28 g/dL (32-36); MEAN CORPUSCULAR VOLUME 86 fL (80-99); MEAN PLATELET VOLUME 11.6 fL (9.0-12.2); MONOCYTES # (AUTO) 0.5 10^3/uL (0.0-1.0); MONOCYTES % (AUTO) 8 % (0-12); NEUTROPHILS % (AUTO) 66 % (42-75); PLATELET COUNT 222 10^3/uL (130-400); WHITE BLOOD COUNT 6.1 10^3/uL (4.3-11.0)
[2020-10-25 06:53] LABS: ALBUMIN 3.2 GM/DL (3.2-4.5); BILIRUBIN,TOTAL 0.3 MG/DL (0.1-1.0); CREATININE SERUM 1.38 MG/DL (0.60-1.30); POTASSIUM 4.5 MMOL/L (3.6-5.0); TOTAL PROTEIN 7.1 GM/DL (6.4-8.2)
[2020-10-25] MEDS: lisINopril 40 MG (PRINIVIL) TABLET PO SCH (07:56)
[2020-10-25] MEDS: METOCLOPRAMIDE 10 MG (REGLAN) TAB PO SCH (07:56)
[2020-10-25] MEDS: AZITHROMYCIN 250 MG TAB (ZITHROMAX) PO SCH (07:56)
[2020-10-25] MEDS: ASPIRIN 81 MG CHEW (CHILDREN'S ASA) PO SCH (07:56)
[2020-10-25] MEDS: PARoxetine 20 MG (PAXIL) TAB PO SCH (07:57)
[2020-10-25] MEDS: PANTOPRAZOLE 40 MG (PROTONIX) TAB PO SCH (07:57)
[2020-10-25] MEDS: LORATADINE (CLARITIN) 10 MG TAB PO SCH (07:57)
[2020-10-25] MEDS: meTOproloL SUCCINATE 50 MG (TOPROL XL) TAB PO SCH (07:57)
[2020-10-25 08:00] VITALS: BP 169/80
[2020-10-25] MEDS ORDERED: TR1C15 TOP (09:43)
[2020-10-25] MEDS ORDERED: PANT40TA52 PO (09:43)
[2020-10-25] MEDS ORDERED: FURO20TA4 PO (09:43)
[2020-10-25] MEDS ORDERED: CEFD300C3 PO (09:43)
--- NOTE | 2020-10-25 09:44 | D/C HH Face to Face Order ---
D/C Face to Face Orders Reconcile Patient Problems Problems Reviewed?: Yes Instructions for Patient Home Health Patient Instructions/FollowUp: PCP 1 week Physician to follow Patient: [facility] Discharge Diet for Home: No Restrictions Patient Problems: CHF CKD Patient Data-Allergies,Ht & Wt Patient Allergies: Coded Allergies: cortisone (Verified Allergy, Unknown, 01/30/07) diphenhydramine (Verified Allergy, Unknown, 01/30/07) penicillin G (Verified Allergy, Unknown, 01/30/07) Height (Feet): 5 Height (Inches): 4.00 Weight (Pounds): 188 Weight (Ounces): 0.0 Home Health Need/Face to Face Date of Face to Face: Oct 25, 2020 Clinical Findings: Generalized weakness and fatigue, Instability, Muscle weakness, Unsteady gait I have seen Pt [id number]: Yes Discharged To: Home Diagnosis/Conditions: CHF Patient is Homebound due to: Maria Elena fall risk due to instabilty, Muscle weakness Homebound Status Due to the above stated illness, injury or surgical procedure (medical condition or diagnosis) and associated clinical findings, the patient is homebound because of his/her inability to leave home except with aid of a supportive device and/or person AND leaving the home requires a considerable and taxing effort or is medically contraindicated. Pt req the following assistanc: [facility] Nursing Orders Home Health Services Order: Nursing Services, Index Editor-Evaluate & Treat, Physical Therapy-Evaluate & Treat Home Health Infusion Therapy Line Start Date: Oct 21, 2020 Certify Stmt I certify that this patient is under my care and that I, a nurse practitioner or a physician; a transition assistant working with me, had a face to face encounter that - meets the physician face to face encounter requirements with this patient as dated. MAE LENTZ DO Oct 25, 2020 09:44
--- NOTE | 2020-10-25 09:45 | Discharge Summary ---
Discharge Summary Hospital Course Was the Problem List Reviewed?: Yes Problems/Dx: (1) Acute on chronic heart failure Status: Acute Qualifiers: Qualified Codes: I50.43 - Acute on chronic combined systolic (congestive) and diastolic (congestive) heart failure (2) Anemia Status: Acute Qualifiers: Qualified Codes: D64.9 - Anemia, unspecified (3) Hyperlipidemia Status: Chronic (4) Hypertension Status: Chronic Qualifiers: Qualified Codes: I10 - Essential (primary) hypertension (5) CKD (chronic kidney disease) Qualifiers: Qualified Codes: N18.9 - Chronic kidney disease, unspecified Hospital Course Date of Admission: Oct 21, 2020 at 16:15 Admission Diagnosis : Family Physician/Provider: Delia Lyon Date of Discharge: 10/25/20 Discharge Diagnosis: CHF, Hypoxia, bedbugs, UTI, Anemia Hospital Course: Hospital course: Pt had an uneventful hospital course when she was admitted for anemia. She will have an EGD and Colonoscopy as an outpatient. Hgb remains stable at 8.0. She remained on telemetry CHF managed with Lasix. PT and OT ordered. Bed bug infestation required an adult protective service order report. She was treated with Rocephin for UTI and that was transitioned over to Omnicef oral medication and home health was ordered with close follow up with PCP. Labs and Pending Lab Test: Laboratory Tests 10/25/20 05:30: White Blood Count 6.1, Red Blood Count 3.38L, Hemoglobin 8.1L, Hematocrit 29L, Mean Corpuscular Volume 86, Mean Corpuscular Hemoglobin 24L, Mean Corpuscular Hemoglobin Concent 28L, Red Cell Distribution Width 17.2H, Platelet Count 222, Mean Platelet Volume 11.6, Immature Granulocyte % (Auto) 0, Neutrophils (%) (Auto) 66, Lymphocytes (%) (Auto) 21, Monocytes (%) (Auto) 8, Eosinophils (%) (Auto) 3, Basophils (%) (Auto) 0, Neutrophils # (Auto) 4.0, Lymphocytes # (Auto) 1.3, Monocytes # (Auto) 0.5, Eosinophils # (Auto) 0.2, Basophils # (Auto) 0.0, Immature Granulocyte # (Auto) 0.0, Sodium Level 139, Potassium Level 4.5, Chloride Level 104, Carbon Dioxide Level 26, Anion Gap 9, Blood Urea Nitrogen 29H, Creatinine 1.38H, Estimat Glomerular Filtration Rate 37, BUN/Creatinine Ratio 21, Glucose Level 108H, Calcium Level 8.0L, Corrected Calcium 8.6, Total Bilirubin 0.3, Aspartate Amino Transf (AST/SGOT) 16, Alanine Aminotransferase (ALT/SGPT) 12, Alkaline Phosphatase 76, Total Protein 7.1, Albumin 3.2 Microbiology 10/21/20 Blood Culture - Preliminary, Resulted No growth 10/21/20 Urine Culture - Final, Complete Escherichia coli 10/21/20 Influenza Types A,B Antigen (DAYANA) - Final, Complete Home Meds Active Cefdinir 300 Mg Capsule 300 Mg PO BID Triamcinolone Acetonide 0.1% Cream (Triamcinolone Acet) 15 Gm Cr 0 Gm TOP BID PRN Pantoprazole Sodium 40 Mg Tablet.dr 40 Mg PO DAILY Furosemide 20 Mg Tablet 20 Mg PO BID@07,17 Reported Miralax (Polyethylene Glycol 3350) 17 Gm Powd.pack 17 Gm PO DAILY PRN Aspirin EC (Aspirin) 81 Mg Tablet.dr 81 Mg PO DAILY Flovent Hfa 110 mcg (Fluticasone Propionate) 1 Ea Aero 1 Ea IH BID PRN Montelukast Sodium 10 Mg Tablet 10 Mg PO HS Lisinopril 40 Mg Tablet 40 Mg PO DAILY Atorvastatin Calcium 10 Mg Tablet 10 Mg PO DAILY Hydrocodone-Acetamin 5-325 mg (Hydrocodone/Acetaminophen) 1 Each Tablet 1 Ea PO BID PRN Metoclopramide HCl 10 Mg Tablet 10 Mg PO BID Paroxetine HCl 20 Mg Tablet 20 Mg PO DAILY Cetirizine HCl 10 Mg Tablet 10 Mg PO DAILY Metoprolol Succinate 50 Mg Tab.er.24h 50 Mg PO DAILY Assessment/Pt Instructions [facility] 1 week Discharge Planning: <30 minutes discharge planning Discharge Instructions Discharge Diet: No Restrictions Discharge Physical Examination Vital Signs Vital Signs Date Time Temp Pulse Resp B/P (MAP) Pulse Ox O2 Delivery O2 Flow Rate FiO2 10/25/20 08:00 36.0 82 18 169/80 (109) 94 Room Air 10/21/20 18:40 21 10/21/20 17:24 1.00 General Appearance: No Apparent Distress, WD/WN, Chronically ill Respiratory: Lungs Clear Cardiovascular: Regular Rate, Rhythm Neurologic/Psychiatric: Alert, Oriented x3, No Motor/Sensory Deficits, Normal Mood/Affect Allergies: Coded Allergies: cortisone (Verified Allergy, Unknown, 01/30/07) diphenhydramine (Verified Allergy, Unknown, 01/30/07) penicillin G (Verified Allergy, Unknown, 01/30/07) Discharge Summary Date of Admission Oct 21, 2020 at 16:15 Date of Discharge Discharge Date: Oct 25, 2020 MAE LENTZ DO Oct 25, 2020 09:45
--- NOTE | 2020-10-25 11:34 | Physical Therapy Evaluation ---
PT Evaluation-General Medical Diagnosis Admission Date Oct 21, 2020 at 16:15 Medical Diagnosis: anemia/bed bugs/CHF Onset Date: Oct 21, 2020 Therapy Diagnosis Therapy Diagnosis: debility Height/Weight Height (Feet): 5 Height (Inches): 4.00 Weight (Pounds): 188 Weight (Ounces): 0.0 Precautions Precautions/Isolations: Standard Precautions Referral Physician: Aidee Reason for Referral: Evaluation/Treatment Medical History Pertinent Medical History: COPD, HTN Current History EMS from home secondary to SOA Reviewed History: Yes Social History Home: Single Level Current Living Status: Other Family Prior Prior Level of Function SCALE: Activities may be completed with or without assistive devices. 3-Tdnvhbwbhb-uxyotls completes the activity by him/herself with no assistance from a helper. 5-Set-up or Clean-up Assistance-helper sets up or cleans up; patient completes activity. [place] assists only prior to or following the activity. 4-Supervision or Touching Assistance-helper provides verbal cues and/or touching/steadying and/or contact guard assistance as patient completes activity. Assistance may be provided throughout the activity or intermittently. 3-Partial/Moderate Assistance-helper does LESS THAN HALF the effort. [place] lifts, holds or supports trunk or limbs, but provides less than half the effort. 2-Substantial/Maximal Assistance-helper does MORE THAN HALF the effort. [place] lifts or holds trunk or limbs and provides more than half the effort. 0-Tgpiqkxsz-nfawyg does ALL the effort. Patient does none of the effort to com plete the activity. Or, the assistance of 2 or more helpers is required for the patient to complete the activity. If activity was not attempted, code reason: 7-Patient Refused. 9-Not Applicable-not attempted and the patient did not perform the activity before the current illness, exacerbation or injury. 10-Not Attempted due to Environmental Limitations-(lack of equipment, weather restraints, etc.). 88-Not Attempted due to Medical Conditions or Safety Concerns. Bed Mobility: 6 Transfers (B,C,W/C): 6 Gait: 6 Stairs: 6 Indoor Mobility (Ambulation): Independent Stairs: Independent Prior Devices Use: None PT Evaluation-Current Subjective Patient reports she is up independently in room. RN confirms. Objective Patient Orientation: Person, Time, Situation ROM/Strength ROM Lower Extremities bilateral LE WFL Strength Upper Extremities 4/5 grossly bilateral LE Integumentary/Posture Integumentary refer to nursing notes Bladder Incontinence: Yes Posture WFL Neuromuscular (Tone, Coordination, Reflexes) grossly intact Sensory Vision: Functional Hearing: Functional Transfers Roll Left to Right (QC): 6 Sit to Lying (QC): 6 Lying to Sitting/Side of Bed(Q: 6 Sit to Stand (QC): 6 Gait Does the Patient Walk?: Yes Mode of Locomotion: Walk Anticipated Mode of Locomotion: Walk Walk 10 feet (QC): 6 Walk 50 ft with 2 Turns(QC): 6 Walk 150 ft (QC): 6 Distance: 150' Gait Assistive Device: None Comments/Gait Description safe and functional with no deviation Wheelchair Training Does the Pt Use a Wheelchair?: No Balance Sitting Static: Normal Sitting Dynamic: Normal Standing Static: Normal Standing Dynamic: Normal Picking up an Object (QC): 6 Assessment/Needs 79 y.o. female, is currently at independent [facility] with all gross motor skills and does not require skilled therapy intervention. Rehab Potential: Fair PT Plan Treatment/Plan Treatment Plan: Discontinue PT, goals met Treatment Duration: Oct 25, 2020 Frequency: 1 time per week Estimated Hrs Per Day: .25 hour per day Patient and/or Family Agrees t: Yes Discharge Recommendations Therapy Discharge Recommendati: Home & Family Time/GCodes Time In: 1106 Time Out: 1117 Total Billed Treatment Time: 11 Total Billed Treatment 1 visit EVMod 11 min TEGAN SAUL PT Oct 25, 2020 11:34
--- NOTE | 2020-10-25 11:36 | Progress Note ---
ERICKA DEJESUS MED STUDENT 10/25/20 1136: Progress Note CC: Acute CHF exacerbation with anemia of uncertain origin, PNA and UTI Ms. Su is an 79yoWF clinic pt at [facility] with history of COPD, untreated HTN and asthma who presented to [facility] ED via EMS on 10/21/20 with complaints of worsening shortness of breath at rest. She was afebrile, anemic (hgb 6.1, hct 23), hypertensive (171/99), and had a BNP level over 2000 upon arrival. CXR revealed cardiomegaly as compared to 2017 images and possible right middle lobe PNA. Dr. Thomas performed a cardiac cath in 2017 and past echo from that visit showed EF 35 to 40% and grade 3 diastolic dysfunction. She was also given medication for HTN in the past but did not take it due to fear of hypotension. In the ED she was given Lasix and 2 units of PRBCs and admitted for acute CHF exacerbation, anemia of uncertain and origin, and possible R-sided PNA. ED staff noted bed bugs upon presentation with excoriations and bites on arms. There is concern about her living situation with her son; social work involved. Azithromycin and Ceftriaxone were started for PNA and Rocephin was added after a UTI was discovered. Throughout her stay blood pressure normalized with Metoprolol 50 mg PO and Lisinopril 40 mg PO. Ms. Su gradually improved over 4 nights with decreased shortness of breath and hbg stable since transfusion. Surgery was consulted and agreed that an outpatient colonoscopy is warranted upon discharge to workup source of anemia. She will be discharged with 6 doses of cefdinir to be completed for UTI resolution, home care and close follow-up to occur in 1 week with her pcp. MAYA LENTZ DO 10/26/20 0518: Supervisory-Addendum Brief Verification & Attestation Participated in pt care: history, MDM, physical Personally performed: exam, history, MDM, supervision of care Care discussed with: Medical Student Procedures: n/a Results interpretation: Verified all documentation Verification and Attestation of Medical Student E/M Service A medical student performed and documented this service in my presence. I reviewed and verified all information documented by the medical student and made modifications to such information, when appropriate. I personally performed the physical exam and medical decision making. Maya Lentz, Oct 26, 2020,05:18 ERICKA DEJESUS MED STUDENT Oct 25, 2020 11:36 MAYA LENTZ DO Oct 26, 2020 05:18
--- NOTE | 2020-10-25 12:15 | Occupational Therapy Eval ---
OT Evaluation-General/PLF Medical Diagnosis Admission Date Oct 21, 2020 at 16:15 Medical Diagnosis: anemia/bed bugs/CHF Onset Date: Oct 21, 2020 Therapy Diagnosis Therapy Diagnosis: Weakness, Decreased ADL skills Height/Weight Height (Feet): 5 Height (Inches): 4.00 Weight (Pounds): 188 Weight (Ounces): 0.0 Precautions Precautions/Isolations: Standard Precautions Weight Bear Status Weight Bearing Restriction: Weight Bearing/Tolerated Referral Physician: Aidee Referral Reason: Activity Tolerance, Self Care, Evaluation/Treatment, Strengthening/ROM Medical History Pertinent Medical History: COPD, HTN Additional Medical History CHF, bed bugs, anemia, pneumonia Reviewed History: Yes Social History Home: Single Level Current Living Status: Other Family (Grandson) Entry Into Home: Level Entry ADL-Prior Level of Function SCALE: Activities may be completed with or without assistive devices. 6-Kzyxyyftje-sckvlfv completes the activity by him/herself with no assistance from a helper. 5-Set-up or Clean-up Assistance-helper sets up or cleans up; patient completes activity. [place] assists only prior to or following the activity. 4-Supervision or Touching Assistance-helper provides verbal cues and/or touching/steadying and/or contact guard assistance as patient completes activity. Assistance may be provided throughout the activity or intermittently. 3-Partial/Moderate Assistance-helper does LESS THAN HALF the effort. [place] lifts, holds or supports trunk or limbs, but provides less than half the effort. 2-Substantial/Maximal Assistance-helper does MORE THAN HALF the effort. [place] lifts or holds trunk or limbs and provides more than half the effort. 0-Zfpvxaizd-xqmttw does ALL the effort. Patient does none of the effort to complete the activity. Or, the assistance of 2 or more helpers is required for the patient to complete the activity. If activity was not attempted, code reason: 7-Patient Refused. 9-Not Applicable-not attempted and the patient did not perform the activity before the current illness, exacerbation or injury. 10-Not Attempted due to Environmental Limitations-(lack of equipment, weather restraints, etc.). 88-Not Attempted due to Medical Conditions or Safety Concerns. ADL PLOF Comments Pt. verbalizes that she is independent at home with daily tasks. She is able to bathe, dress self, and is able to ambulate independently without assistive device. Pt. verbalizes that she lives with her grandson, and that he brings her food, does shopping, etc. DME/Equipment Comments Pt. states that she has no adaptive equipment at home and does not need it. OT Current Status Subjective No pain reported. Appearance Pt. sitting on EOB when OT came in room. Mental Status/Objective Patient Orientation: Person, Place Current Upper Extremity ROM WFL ADL-Treatment Eating (QC): 6 On/Off Footwear (QC): 6 Other Treatments Pt. sitting independently on EOB when OT came in room. OT introduced self. Educated pt. on role of OT. Pt. verbalizes that she is independent with everything, and does not need assistance at this time. Pt. is able to feed self with no difficulty, is ambulating to bathroom with no difficulty. She brought both feet up to her with no difficulty and donned/doffed slipper socks. She is able to stand without assistive device, and no LOB noted. Pt. verbalizes being ready to discharge home. She will be leaving today. No further OT warranted at this time. Education OT Patient Education: Correct positioning, Modified ADL techniques, Progress toward Goal/Update tx plan, Purpose of tx/functional activities, Reviewed precautions, Rehab process, Transfer techniques Teaching Recipient: Patient Teaching Methods: Demonstration, Discussion Response to Teaching: Verbalize Understanding, Return Demonstration OT Seed Cutter Goals Prison Goals Time Frame: Oct 25, 2020 Additional Goals: 1-Demonstrate ADL Tasks, 2-Verbalize Understanding 1=Demonstrate adherence to instructed precautions during ADL tasks. 2=Patient will verbalize/demonstrate understanding of assistive devices/irvin fications for ADL. 3=Patient will improve strength/tolerance for activity to enable patient to perform ADL's. Pt. independent in room with daily skills. No deficits identified during evaluation. Pt. to be discharged this date. OT Education/Plan Problem List/Assessment Assessment: No Skilled OT Needs ID'd Discharge Recommendations Plan/Recommendations: Discontinue OT Therapy Discharge Recommendati: Home & Family Treatment Plan/Plan of Care Treatment,Training & Education: Yes Plan of Care: OTHER Treatment Duration: Oct 25, 2020 Frequency: 1 time per week Estimated Hrs Per Day: .25 hour per day Agreement: Yes Rehab Potential: Good Time/GCodes Start Time: 10:10 Stop Time: 10:20 Total Time Billed (hr/min): 10 Billed Treatment Time 1, EVL MALLORY SIDDIQI OT Oct 25, 2020 12:14
== END 2020-10-25 14:42 | disposition home health service (06) | DRG 811 ==
LOC: EDUNIT# 14:34 → ER 14:36 → 4TH 16:15
PROVIDERS: ADMIT Family Medicine; ATTEND Internal Medicine
DX: D64.9 Anemia, unspecified (principal); I50.43 Acute on chronic combined systolic (congestive) and diastolic (congestive) heart failure; J18.9 Pneumonia, unspecified organism; I13.0 Hypertensive heart and chronic kidney disease with heart failure and stage 1 through stage 4 chronic kidney disease, or unspecified chronic kidney disease; J44.0 Chronic obstructive pulmonary disease with (acute) lower respiratory infection; N39.0 Urinary tract infection, site not specified; E78.5 Hyperlipidemia, unspecified; B96.20 Unspecified Escherichia coli [E. coli] as the cause of diseases classified elsewhere; Z20.822 Contact with and (suspected) exposure to COVID-19; Z88.0 Allergy status to penicillin; Z79.82 Long term (current) use of aspirin; Z87.891 Personal history of nicotine dependence; Z90.49 Acquired absence of other specified parts of digestive tract
CPT/HCPCS: 36415; 71045; 80048; 80053; 81000; 82728; 82805; 83540; 83550; 83880; 84484; 85025; 86141; 86850; 86900; 86901; 86902; 86922; 87040; 87077; 87088; 87186; 87635; 87804; 93005; 93306; 94640; 94664; 94760

== ENCOUNTER 2020-11-19 05:28 | Outpatient (RCR) | payer MEDICARE, MEDICAID ==
[~2020-11-19] VITALS: Ht 164.6 cm; Wt 76.0 kg
[~2020-11-19 05:28] MED LIST changes: +ACHD5005 PO; +ASPI-1238 PO; +ATOR10TA66 PO; +CEFD300C3 PO; +FLT11013 IH; +FURO20TA4 PO; +LISI40TA9 PO; +METH-732 PO; +MONT10TA32 PO; +OMEP-401 PO; +PANT40TA52 PO; +POLY17PO6 PO; +TIZA2CAP9 PO; +TR1C15 TOP
== END 2020-11-19 09:18 | disposition home or self-care (01) ==
LOC: PREOP 05:28
PROVIDERS: ATTEND Surgery
DX: Z01.812 Encounter for preprocedural laboratory examination (principal); Z20.822 Contact with and (suspected) exposure to COVID-19
CPT/HCPCS: 87635

== ENCOUNTER 2020-11-23 12:41 | Day surgery (SDC) | payer MEDICARE, MEDICAID ==
[2020-11-23] VITALS (8 sets, daily range): BP systolic 144–185; BP diastolic 76–98
[~2020-11-23] VITALS: Ht 164.6 cm; Wt 76.0 kg
[2020-11-23] MEDS ORDERED: LACTATED RINGERS 1,000 ML IV STA (12:56)
[2020-11-23] MEDS ORDERED: LACTATED RINGERS 1,000 ML IV ONE (12:57)
[2020-11-23] MEDS ORDERED: PROPOFOL INJECTION 50 ML IV ONE (14:08)
--- NOTE | 2020-11-23 14:21 | Progress Note-Pre Operative ---
Pre-Operative Progress Note H&P Reviewed The H&P was reviewed, patient examined and no changes noted. Date Seen by Provider: November 23, 2020 Time Seen by Provider: 14:20 Date H&P Reviewed: November 23, 2020 Time H&P Reviewed: 14:20 Pre-Operative Diagnosis: iron def anemia ANDREA MURRAY DO November 23, 2020 14:20
[2020-11-23] MEDS ORDERED: proPOfol 200 MG/20 ML (DIPRIVAN) VIAL IV ONE (14:51)
--- NOTE | 2020-11-23 15:11 | Anesthesia-General Post-Op ---
MAC Patient Condition Mental Status/LOC: Same as Preop Cardiovascular: Satisfactory Nausea/Vomiting: Absent Respiratory: Satisfactory Pain: Controlled Complications: Absent Post Op Complications Complications None Follow Up Care/Instructions Patient Instructions None needed. Anesthesiology Discharge Order Discharge Order Patient is doing well, no complaints, stable vital signs, no apparent adverse anesthesia problems. No complications reported per nursing. LEANDER SOTO CRNA November 23, 2020 15:11
--- NOTE | 2020-11-23 20:13 | OPERATIVE REPORT ---
DATE OF SERVICE: 11/23/2020 PREOPERATIVE DIAGNOSIS: Anemia. POSTOPERATIVE DIAGNOSES: Hiatal hernia, pyloric opening polyp, colon polyps. PROCEDURE: EGD with snare polypectomy of pyloric polyp. Colonoscopy with snare polypectomy x2, colon polyps. SURGEON: Andrea Hsu DO ANESTHESIA: Per CLIN APPLICATION SPECIALIST. ESTIMATED BLOOD LOSS: None. COMPLICATIONS: None. INDICATIONS: The patient is an 79-year-old female with anemia. She understands risks and benefits of procedure and wished to proceed with procedure. Consent was signed in the chart. DESCRIPTION OF PROCEDURE: The patient was taken to the endoscopy suite, placed in left lateral recumbent position. Timeout was performed. Scope was inserted in mouth, down the esophagus, stomach and into the duodenum without difficulty. There were no polyps, masses or ulcerations within the duodenum. At the pyloric opening, a polyp was present almost completely occluding the pylorus. Snare polypectomy was performed. The polyp was suctioned and brought out through the mouth to obtain specimen. Scope was reinserted in mouth, down the esophagus and into the stomach where it was further insufflated. Hemostasis was achieved. There were no polyps, masses or ulcerations in the remainder of the stomach. Scope was retroflexed noting no other pathology except for hiatal hernia. Scope was returned to its normal position, slowly withdrawn to distal esophagus. There were no polyps, masses or ulcerations. Scope was slowly retracted back until completely removed. The patient then had digital rectal exam was performed. There were no palpable polyps, masses or ulcerations. Scope was inserted in the rectum and advanced all the way to cecum with minimal difficulty. Prep was adequate. Scope was then slowly retracted back. There were no polyps, masses or ulcerations in the cecum, ascending, transverse colon. In the descending colon, polyp was present, which snare polypectomy was performed. Scope was continuously retracted back into the sigmoid colon, where another polyp was present, which snare polypectomy was performed. Scope was then continuously retracted back into the rectum where it was also retroflexed noting no other pathology. Scope was returned to its normal position, slowly withdrawn until completely removed. The patient tolerated procedure well without any complications. She was taken to recovery room in stable condition. RECOMMENDATIONS: The patient will follow up on pathology. No evidence of any active bleeding. We will continue to monitor hemoglobin outpatient, would consider small bowel follow through if continued to remain anemic. This done at the outside facility, since we do not offer that service. Job ID: [id number] DocumentID: [id number] Dictated Date: 11/23/2020 18:50:09 Rug Setter Velvet Date: 11/23/2020 20:12:03 Dictated By: ANDREA HSU DO
== END 2020-11-23 16:00 | disposition home or self-care (01) ==
LOC: ENDO 12:41
PROVIDERS: ATTEND Surgery
DX: K31.7 Polyp of stomach and duodenum (principal); D12.5 Benign neoplasm of sigmoid colon; K63.5 Polyp of colon; K44.9 Diaphragmatic hernia without obstruction or gangrene; D50.9 Iron deficiency anemia, unspecified; I10 Essential (primary) hypertension; J45.909 Unspecified asthma, uncomplicated; N39.0 Urinary tract infection, site not specified; E78.5 Hyperlipidemia, unspecified; I25.10 Atherosclerotic heart disease of native coronary artery without angina pectoris; I65.29 Occlusion and stenosis of unspecified carotid artery; I71.2 Thoracic aortic aneurysm, without rupture; Q25.1 Coarctation of aorta; F32.9 Major depressive disorder, single episode, unspecified; Z87.891 Personal history of nicotine dependence; Z79.02 Long term (current) use of antithrombotics/antiplatelets; Z88.0 Allergy status to penicillin; Z88.8 Allergy status to other drugs, medicaments and biological substances; Z79.82 Long term (current) use of aspirin; Z79.891 Long term (current) use of opiate analgesic; Z79.899 Other long term (current) drug therapy; Z90.710 Acquired absence of both cervix and uterus; Z90.89 Acquired absence of other organs; Z80.9 Family history of malignant neoplasm, unspecified
CPT/HCPCS: 88305

== ENCOUNTER 2021-01-15 21:33 | Emergency (ER) | payer MEDICARE, MEDICAID ==
[~2021-01-15] VITALS: Ht 152 cm; Wt 76.0 kg
--- NOTE | 2021-01-15 21:47 | ED Respiratory ---
General Stated Complaint: HYPOXIA/COVID POSITIVE Source: patient Exam Limitations: no limitations History of Present Illness Date Seen by Provider: Jan 15, 2021 Time Seen by Provider: 21:33 Initial Comments Patient to the ER by EMS from home with chief complaint that family put a pulse oximeter on her and noted her oxygen saturation was 89% and then promptly went back up to 95%. Patient denies any shortness of breath or cough. She was diagnosed yesterday with COVID-19. Her is in the ICU with COVID-19. She quit smoking years ago. She denies any wheezing nausea fever chills diarrhea body aches or headache. EMS reports she had 97% on room air when they arrived. She does not use oxygen at baseline for supplementation Allergies and Home Medications Allergies Coded Allergies: cortisone (Verified Allergy, Unknown, 01/30/07) diphenhydramine (Verified Allergy, Unknown, 01/30/07) penicillin G (Verified Allergy, Unknown, 01/30/07) Home Medications Aspirin 81 Mg Tablet.dr, 81 MG PO DAILY, (Reported) Atorvastatin Calcium 10 Mg Tablet, 10 MG PO DAILY, (Reported) Cetirizine HCl 10 Mg Tablet, 10 MG PO DAILY, (Reported) Fluticasone Propionate 1 Ea Aero, 1 EA IH BID PRN for SHORTNESS OF BREATH, (Reported) Furosemide 20 Mg Tablet, 20 MG PO BID@ Prescribed by: MAE LENTZ on 10/25/20 09 Hydrocodone/Acetaminophen 1 Each Tablet, 1 EA PO BID PRN for PAIN-MODERATE (5- 7), (Reported) Lisinopril 40 Mg Tablet, 40 MG PO DAILY, (Reported) Methocarbamol 750 Mg Tablet, 750 MG PO DAILY, (Reported) Metoclopramide HCl 10 Mg Tablet, 10 MG PO BID, (Reported) Metoprolol Succinate 50 Mg Tab.er.24h, 50 MG PO DAILY, (Reported) Montelukast Sodium 10 Mg Tablet, 10 MG PO HS, (Reported) Omeprazole 20 Mg Tab.rap.dr, 20 MG PO DAILY, (Reported) Pantoprazole Sodium 40 Mg Tablet.dr, 40 MG PO DAILY Prescribed by: MAE LENTZ on 10/25/20 0943 Paroxetine HCl 20 Mg Tablet, 20 MG PO DAILY, (Reported) Tizanidine HCl 2 Mg Capsule, 2 MG PO DAILY, (Reported) Triamcinolone Acet 15 Gm Cr, 0 GM TOP BID PRN for ITCHING AND RASH Prescribed by: MAE LETNZ on 10/25/20 3947 Patient Home Medication List Home Medication List Reviewed: Yes Review of Systems Review of Systems Constitutional: No chills, No diaphoresis, No fever EENTM: No ear discharge, No ear pain Respiratory: No cough, No short of breath Cardiovascular: No chest pain Gastrointestinal: No abdominal pain, No nausea Genitourinary: No discharge, No dysuria Musculoskeletal: No back pain, No joint pain All Other Systems Reviewed Negative Unless Noted: Yes Past Henyoks-Gmizou-Qwixwn Hx Patient Social History Alcohol Use: Denies Use Smoking Status: Former Smoker Type Used: Cigarettes Former Smoker, Quit: Jul 30, 2016 2nd Hand Smoke Exposure: Yes Recent Hopitalizations: No Immunizations Up To Date Tetanus Booster (TDap): Less than 5yrs PED Vaccines UTD: Yes Date of Pneumonia Vaccine: Mar 23, 2016 Date of Influenza Vaccine: Apr 22, 2020 Seasonal Allergies Seasonal Allergies: Yes Past Medical History Surgeries: Yes (RIGHT BREAST BIOPSY,ROTATOR CUFF) Section, Gallbladder, Hysterectomy, Oophorectomy, Orthopedic, Tonsillectomy Respiratory: Yes Asthma, COPD Cardiac: Yes Hypertension Neurological: No Reproductive Disorders: No Sexually Transmitted Disease: No Genitourinary: No UTI-Chronic Gastrointestinal: No Musculoskeletal: No Endocrine: No HEENT: No Cancer: No Psychosocial: No Blood Disorders: Yes Adverse Reaction/Blood Tranf: No Family Medical History No Pertinent Family Hx, Cancer Physical Exam Vital Signs - First Documented 01/15/21 21:49 Temp 36.4 Pulse 57 Resp 18 B/P (MAP) 167/80 (109) Pulse Ox 94 O2 Delivery Room Air Capillary Refill : Height: 5'4.00" Weight: 188lbs. 0.0oz. 85.989598yc; 28.05 BMI Method:Stated General Appearance: WD/WN, no apparent distress Eyes: Bilateral Eye Normal Inspection, Bilateral Eye PERRL, Bilateral Eye EOMI HEENT: PERRL/EOMI, normal ENT inspection, TMs normal Neck: full range of motion, supple, normal inspection Respiratory: lungs clear, normal breath sounds, no respiratory distress (No oxygen saturation 96% on room air with nonlabored breathing), no accessory muscle use Cardiovascular: normal peripheral pulses, regular rate, rhythm (Heart rate in the 60s) Gastrointestinal: normal bowel sounds, non tender, soft Neurologic/Psychiatric: alert, normal mood/affect, oriented x 3 Skin: normal color, warm/dry Procedures/Interventions Suture Size: 5-0 Progress/Results/Core Measures Suspected Sepsis SIRS Temperature: Pulse: Respiratory Rate: Laboratory Tests 01/15/21 21:45: White Blood Count 3.4L Blood Pressure / Mean: Laboratory Tests 01/15/21 21:45: Creatinine 1.35H, Platelet Count 177, Total Bilirubin 0.2 Results/Orders Lab Results Laboratory Tests Test 01/15/21 21:45 Range/Units White Blood Count 3.4 L 4.3-11.0 10^3/uL Red Blood Count 3.61 L 3.80-5.11 10^6/uL Hemoglobin 9.3 L 11.5-16.0 g/dL Hematocrit 32 L 35-52 % Mean Corpuscular Volume 89 80-99 fL Mean Corpuscular Hemoglobin 26 25-34 pg Mean Corpuscular Hemoglobin Concent 29 L 32-36 g/dL Red Cell Distribution Width 17.3 H 10.0-14.5 % Platelet Count 177 130-400 10^3/uL Mean Platelet Volume 11.2 9.0-12.2 fL Immature Granulocyte % (Auto) 0 % Neutrophils (%) (Auto) 39 L 42-75 % Lymphocytes (%) (Auto) 46 H 12-44 % Monocytes (%) (Auto) 12 0-12 % Eosinophils (%) (Auto) 2 0-10 % Basophils (%) (Auto) 1 0-10 % Neutrophils # (Auto) 1.3 L 1.8-7.8 10^3/uL Lymphocytes # (Auto) 1.6 1.0-4.0 10^3/uL Monocytes # (Auto) 0.4 0.0-1.0 10^3/uL Eosinophils # (Auto) 0.1 0.0-0.3 10^3/uL Basophils # (Auto) 0.0 0.0-0.1 10^3/uL Immature Granulocyte # (Auto) 0.0 0.0-0.1 10^3/uL Blood Gas Puncture Site RIGHT RADIAL Blood Gas Patient Temperature 98.1 Arterial Blood pH 7.43 7.37-7.43 Arterial Blood Partial Pressure CO2 32 L 35-45 MMHG Arterial Blood Partial Pressure O2 138 H 79-93 MMHG Arterial Blood HCO3 21 L 23-27 MMOL/L Arterial Blood Total CO2 21.6 21.0-31.0 MMOL/L Arterial Blood Oxygen Saturation 98 94-100 % Arterial Blood Base Excess -3.1 L -2.5-2.5 MMOL/L Iam Test YES-POS Blood Gas Ventilator Setting NO Blood Gas Inspired Oxygen ROOM AIR Sodium Level 137 135-145 MMOL/L Potassium Level 3.7 3.6-5.0 MMOL/L Chloride Level 106 98-107 MMOL/L Carbon Dioxide Level 19 L 21-32 MMOL/L Anion Gap 12 5-14 MMOL/L Blood Urea Nitrogen 23 H 7-18 MG/DL Creatinine 1.35 H 0.60-1.30 MG/DL Estimat Glomerular Filtration Rate 38 BUN/Creatinine Ratio 17 Glucose Level 106 H 70-105 MG/DL Calcium Level 8.3 L 8.5-10.1 MG/DL Corrected Calcium 8.8 8.5-10.1 MG/DL Total Bilirubin 0.2 0.1-1.0 MG/DL Aspartate Amino Transf (AST/SGOT) 114 H 5-34 U/L Alanine Aminotransferase (ALT/SGPT) 80 H 0-55 U/L Alkaline Phosphatase 137 H 40-136 U/L C-Reactive Protein High Sensitivity 0.97 H 0.00-0.50 MG/DL Total Protein 8.6 H 6.4-8.2 GM/DL Albumin 3.4 3.2-4.5 GM/DL My Orders Orders - DOT LORENZ Cbc With Automated Diff (01/15/21 21:42) Comprehensive Metabolic Panel (01/15/21 21:42) Covid-19 External Lab Results (01/15/21 21:42) Hs C Reactive Protein (01/15/21 21:42) Arterial Blood Gas (01/15/21 21:42) Chest 1 View, Ap/Pa Only (01/15/21 21:42) Vital Signs/I&O 01/15/21 01/15/21 21:49 22:28 Temp 36.4 Pulse 57 56 Resp 18 18 B/P (MAP) 167/80 (109) 132/63 Pulse Ox 94 93 O2 Delivery Room Air Capillary Refill : Progress Note : Time: 21:46 Progress Note Patient does not appear to be in any clinical distress at this time. We will keep her on the monitor and observe her and obtain some basic labs and chest x- ray to gradiate out her COVID-19. We discussed using monoclonal antibodies under an emergency use authorization by the FDA and the risks, benefits and alternatives to doing such. She would be a good candidate for the medication and is interested in doing it. We will set her up for outpatient follow-up tomorrow if she does not require oxygen or hospitalization which at this time she does not. Diagnostic Imaging Diagonstic Imaging: Xray Plain Films/CT/US/NM/MRI: chest Comments Mild perihilar interstitial markings possible due to a viral pneumonia. [facility] [place], [place] NAME: [facility] REC#: [id number] PT STATUS: DEP ER : [id number] PHYSICIAN: DOT LORENZ MD ADMIT DATE: 01/15/21/ER Signed Date of Exam:01/15/21 CHEST 1 VIEW, AP/PA ONLY EXAMINATION: Chest radiograph, portable AP view. DATE: 01/15/2021 10:11 PM INDICATION: 80-year-old female, shortness of breath. History of Covid 19 infection. COMPARISON: October 21, 2020. FINDINGS: Heart size and mediastinal contours are unchanged. There is no identified pneumothorax. There is no identified interval focal airspace consolidation. There are coarse interstitial opacities which appear similar to the comparison exam. IMPRESSION: 1. No radiographically apparent interval acute cardiopulmonary abnormality. 2. Mild coarse interstitial lung opacities which may reflect chronic lung changes. Dictated by: Dictated on workstation # [id number] Dict: 01/16/21 0749 Trans: 01/16/21 0833 [facility] [id number] Interpreted by: ERICH GORMAN MD Electronically signed by: ERICH GORMAN MD 01/16/21 0833 Reviewed: Reviewed by Me Departure Impression Primary Impression: COVID-19 Disposition: 01 HOME, SELF-CARE Condition: Stable Departure-Patient Inst. Decision time for Depature: 22:27 Referrals: [facility] (PCP/Family) Primary Care Physician Patient Instructions: Baricitinib FDA Fact Sheet, COVID-19 (DC) Add. Discharge Instructions: Drink plenty of fluids. Tylenol 1000 mg every 8 hours as necessary for fever headache or body aches. On Sunday someone should call you to set up the monoclonal antibody infusion at the hospital. They will give you further instructions. DOT LORENZ Jan 15, 2021 21:47
[2021-01-15 21:54] LABS: ABG BASE EXCESS -3.1 MMOL/L (-2.5-2.5); ABG PCO2 32 MMHG (35-45); ABG PH 7.43 (7.37-7.43); ABG PO2 138 MMHG (79-93); ABG TCO2 21.6 MMOL/L (21.0-31.0)
[2021-01-15 21:55] LABS: BASOPHILS % (AUTO) 1 % (0-10); EOSINOPHILS # (AUTO) 0.1 10^3/uL (0.0-0.3); EOSINOPHILS % (AUTO) 2 % (0-10); HEMATOCRIT 32 % (35-52); HEMOGLOBIN 9.3 g/dL (11.5-16.0); LYMPHOCYTES # (AUTO) 1.6 10^3/uL (1.0-4.0); LYMPHOCYTES % (AUTO) 46 % (12-44); MEAN CORPUSCULAR HEMOGLOBIN 26 pg (25-34); MEAN CORPUSCULAR HGB CONC 29 g/dL (32-36); MEAN CORPUSCULAR VOLUME 89 fL (80-99); MEAN PLATELET VOLUME 11.2 fL (9.0-12.2); MONOCYTES # (AUTO) 0.4 10^3/uL (0.0-1.0); MONOCYTES % (AUTO) 12 % (0-12); NEUTROPHILS # (AUTO) 1.3 10^3/uL (1.8-7.8); NEUTROPHILS % (AUTO) 39 % (42-75); PLATELET COUNT 177 10^3/uL (130-400); WHITE BLOOD COUNT 3.4 10^3/uL (4.3-11.0)
[2021-01-15 21:56] LABS: ABG OXYGEN SATURATION 98 % (94-100); ALLENS TEST YES-POS; INSPIRED O2 ROOM AIR; PATIENT TEMP 98.1; VENTILATOR NO
[2021-01-15 22:05] LABS: ALBUMIN 3.4 GM/DL (3.2-4.5); POTASSIUM 3.7 MMOL/L (3.6-5.0)
[2021-01-15 22:07] LABS: CALCIUM 8.3 MG/DL (8.5-10.1)
[2021-01-15 22:08] LABS: TOTAL PROTEIN 8.6 GM/DL (6.4-8.2)
[2021-01-15 22:10] LABS: BILIRUBIN,TOTAL 0.2 MG/DL (0.1-1.0)
[2021-01-15 22:12] LABS: CREATININE SERUM 1.35 MG/DL (0.60-1.30)
[2021-01-15 22:28] VITALS: BP 132/63
--- NOTE | 2021-01-16 07:57 | Diagnostic Imaging Report ---
EXAMINATION: Chest radiograph, portable AP view. DATE: 01/15/2021 10:11 PM INDICATION: 80-year-old female, shortness of breath. History of Covid 19 infection. COMPARISON: October 21, 2020. FINDINGS: Heart size and mediastinal contours are unchanged. There is no identified pneumothorax. There is no identified interval focal airspace consolidation. There are coarse interstitial opacities which appear similar to the comparison exam. IMPRESSION: 1. No radiographically apparent interval acute cardiopulmonary abnormality. 2. Mild coarse interstitial lung opacities which may reflect chronic lung changes. Dictated by: Dictated on workstation # [id number]
== END 2021-01-15 22:38 | disposition home or self-care (01) ==
LOC: EDUNIT# 21:33 → ER 21:34
DX: U07.1 COVID-19 (principal); J44.9 Chronic obstructive pulmonary disease, unspecified; I10 Essential (primary) hypertension; Z87.891 Personal history of nicotine dependence; Z79.82 Long term (current) use of aspirin
CPT/HCPCS: 36415; 71045; 80053; 82805; 85025; 86141

== ENCOUNTER 2021-07-12 05:19 | Inpatient (IN) | payer MEDICARE, MEDICAID ==
[2021-07-12] VITALS (9 sets, daily range): BP systolic 108–205; BP diastolic 65–103
[~2021-07-12] VITALS: Ht 152 cm; Wt 78.5 kg
[~2021-07-12 05:19] MED LIST changes: +MONT-40 PO; -MONT10TA32 PO
[2021-07-12] MEDS ORDERED: fentaNYL INJ 100 MCG/2 ML AMP IVP STA (05:28)
--- NOTE | 2021-07-12 05:35 | ED Fall/Injury ---
General Chief Complaint: Trauma-Non Activation Stated Complaint: FALL Nursing Triage Note: brought in by [facility] s/p fall from standing position. pt reports tripping et. c/o left knee/thigh pain. denies other injury/pain/loc. Source: patient, EMS (ANDREW DIAZ DO) History of Present Illness Date Seen by Provider: Jul 12, 2021 Time Seen by Provider: 05:20 Initial Comments PT ARRIVES VIA EMS FROM HOME PT STATES SHE HAD GOTTEN UP TO GO TO THE BATHROOM, AND FELL ON THE WAY TO THE BATHROOM, [place] [facility] PT DOES NOT KNOW WHAT TIME THIS OCCURRED, OR HOW LONG SHE HAD BEEN THERE EMS REPORT THAT PT HAD BEEN ON FLOOR "A COUPLE OF HOURS" PT STATES HER GRAND DAUGHTER'S FOUND HER AND CALLED EMS. GRAND DAUGHTER AND GRAND DAUGHTER'S LIVE WITH PATIENT PT DENIES HITTING HER HEAD OR LOSS OF CONSCIOUSNESS DENIES NECK OR BACK PAIN C/O PAIN TO LEFT KNEE DENIES ANY OTHER INJURIES OR AREAS OF PAIN DENIES ANY PRIOR INJURIES OR SURGERIES TO THIS KNEE OR LEG NO PARESTHESIAS OR MOTOR DEFICITS PT HAS HAD MULTIPLE ER VISITS RELATED TO FALLS PT TAKES 81 MG ASPIRIN, BUT NO OTHER BLOOD THINNERS EMS REPORT THAT O2 SAT WAS 91% ON ROOM AIR AT SCENE. PT DOES NOT HAVE HOME O2 O2 AT 2L/NC PLACED BY EMS AND O2 SATS UP TO MID 90'S PT DENIES FEELING SHORT OF BREATH PT STATES SHE USED TO SMOKE 1 PPD, BUT SHE QUIT PT DID HAVE COVID-19 IN DECEMBER OF THIS YEAR NO HOSPITALIZATION OR TREATMENT--ARRANGEMENTS HAD BEEN MADE FOR HER TO GET MAB, BUT PT DID NOT GO THROUGH WITH TREATMENT. ( ALSO HAD COVID AT THAT TIME AND WAS HOSPITALIZED AND DID NOT REQUIRE HOME O2 WHEN SHE HAD COVID-19. PT STATES SHE HAS SINCE HAD COVID-19 VACCINATION X 2 Location Injury Occurred: home PCP: PHYLLIS BAUMANN (ANDREW DIAZ DO) Allergies and Home Medications Allergies Coded Allergies: cortisone (Verified Allergy, Unknown, 01/30/07) diphenhydramine (Verified Allergy, Unknown, 01/30/07) penicillin G (Verified Allergy, Unknown, 01/30/07) Patient Home Medication List Home Medication List Reviewed: Yes (GUANAKITO CLIFTON MD) Aspirin (Aspirin EC) 81 Mg Tablet.dr, 81 MG PO DAILY, (Reported) Entered as Reported by: ELZA AGUILAR on 10/22/201006 Atorvastatin Calcium (Atorvastatin Calcium) 10 Mg Tablet, 10 MG PO DAILY, (Reported) Entered as Reported by: ELZA AGUILAR on 10/22/201006 Cetirizine HCl (Cetirizine HCl) 10 Mg Tablet, 10 MG PO DAILY, (Reported) Entered as Reported by: JULIETH MAYA on 09/27/16 08 Fluticasone Propionate (Flovent Hfa 110 mcg) 1 Ea Aero, 1 EA IH BID PRN for SHORTNESS OF BREATH, (Reported) Entered as Reported by: ELZA AGUILAR on 10/22/201006 Furosemide (Furosemide) 20 Mg Tablet, 20 MG PO BID@ Prescribed by: MAE LENTZ on 10/25/20 09 Hydrocodone/Acetaminophen (Hydrocodone-Acetamin 5-325 mg) 1 Each Tablet, 1 EA PO BID PRN for PAIN-MODERATE (5-7), (Reported) Entered as Reported by: ELZA AGUILAR on 10/22/201006 Lisinopril (Lisinopril) 40 Mg Tablet, 40 MG PO DAILY, (Reported) Entered as Reported by: ELZA AGUILAR on 10/22/201006 Methocarbamol (Methocarbamol) 750 Mg Tablet, 750 MG PO DAILY, (Reported) Entered as Reported by: KARIN CHEEK on 11/18/201199 Metoclopramide HCl (Metoclopramide HCl) 10 Mg Tablet, 10 MG PO BID, (Reported) Entered as Reported by: JULIETH MAYA on 09/27/16838 Metoprolol Succinate (Metoprolol Succinate) 50 Mg Tab.er.24h, 50 MG PO DAILY, (Reported) Entered as Reported by: JULIETH MAYA on 09/27/16838 Montelukast Sodium (Montelukast Sodium) 10 Mg Tablet, 10 MG PO HS, (Reported) Entered as Reported by: ELZA AGUILAR on 10/22/201006 Omeprazole (Omeprazole) 20 Mg Tab.rap.dr, 20 MG PO DAILY, (Reported) Entered as Reported by: KARIN CHEEK on 11/18/20 1200 Pantoprazole Sodium (Pantoprazole Sodium) 40 Mg Tablet.dr, 40 MG PO DAILY Prescribed by: MAE LENTZ on 10/25/20 0943 Paroxetine HCl (Paroxetine HCl) 20 Mg Tablet, 20 MG PO DAILY, (Reported) Entered as Reported by: JULIETH MAYA on 09/27/16 0839 Tizanidine HCl (Tizanidine HCl) 2 Mg Capsule, 2 MG PO DAILY, (Reported) Entered as Reported by: KARIN CHEEK on 11/18/20 1200 Triamcinolone Acet (Triamcinolone Acetonide 0.1% Cream) 15 Gm Cr, 0 GM TOP BID PRN for ITCHING AND RASH Prescribed by: MAE LENTZ on 10/25/20 0943 Review of Systems Review of Systems Constitutional: no symptoms reported Eyes: No Symptoms Reported Ears, Nose, Mouth, Throat: no symptoms reported Respiratory: see HPI; No cough, No short of breath Cardiovascular: no symptoms reported; No chest pain Gastrointestinal: no symptoms reported; No abdominal pain, No nausea, No vomiting Genitourinary: no symptoms reported Musculoskeletal: see HPI Skin: no symptoms reported Psychiatric/Neurological: No Symptoms Reported; Denies Headache, Denies Numbness, Denies Paresthesia, Denies Tingling, Denies Weakness (ANDREW DIAZ DO) Past Tpwizrq-Szyafb-Gmyswg Hx Patient Social History Tobacco Use?: Yes Tobacco type used: Cigarettes Smoking Status: Former Smoker Substance use?: No Alcohol Use?: No Pt feels they are or have been: No (ANDREW DIAZ DO) Immunizations Up To Date Tetanus Booster (TDap): Less than 5yrs PED Vaccines UTD: Yes (ANDREW DIAZ DO) Seasonal Allergies Seasonal Allergies: Yes (ANDREW DIAZ DO) Past Medical History Surgery/Hospitalization HX: htn, gerd, high cholesterol, asthma Surgeries: Yes (RIGHT BREAST BIOPSY,ROTATOR CUFF) Section, Gallbladder, Hysterectomy, Oophorectomy, Orthopedic, Tonsillectomy Respiratory: Yes (COVID-19 12/2020-NO HOSPITALIZATION OR TREATMENT) Asthma, COPD Cardiac: Yes High Cholesterol, Hypertension Neurological: No Reproductive Disorders: No Sexually Transmitted Disease: No Genitourinary: Yes UTI-Chronic Gastrointestinal: Yes Gastroesophageal Reflux Musculoskeletal: Yes (FALLS) Arthritis Endocrine: No HEENT: No Cancer: No Psychosocial: No Blood Disorders: Yes (ANEMIA) Adverse Reaction/Blood Tranf: No (ANDREW DIAZ DO) Family Medical History No Pertinent Family Hx, Cancer (ANDREW DIAZ Bon RUSSO) Physical Exam Vital Signs Vital Signs - First Documented 07/12/21 05:20 Temp 36.5 Pulse 64 Resp 16 B/P (MAP) 203/100 (134) Pulse Ox 97 O2 Delivery Nasal Cannula O2 Flow Rate 2.00 (GUANAKITO CLIFTON MD) Vital Signs Capillary Refill : (ANDREW DIAZ ) Height, Weight, BMI Height: 5'4.00" Weight: 188lbs. 0.0oz. 85.993103xn; 32.00 BMI Method:Stated General Appearance: WD/WN, other (MILDLY DYSPNEIC, BUT PT DENIES FEELING SHORT OF BREATH) HEENT: other (NO EXTERNAL EVIDENCE OF TRAUMA TO HEAD) Neck: non-tender, full range of motion Cardiovascular: normal peripheral pulses, regular rate, rhythm, no murmur Respiratory: chest non-tender, normal breath sounds, no respiratory distress, no accessory muscle use Gastrointestinal: normal bowel sounds, non tender, soft Back: no CVA tenderness Extremities: no pedal edema, no calf tenderness, other (LEFT LEG SHORTENED AND EXTERNALLY ROTATED. TENDERNESS FROM LEFT HIP DOWN TO LEFT KNEE. NO GROSS DEFORMITY OF KNEE, NO BRUISING OR SWELLING OR ABRASIONS TO LEFT LEG. DISTAL MOTOR/SENSORY/VASCULAR INTACT. NO OTHER TENDERNESS ANYWHERE ELSE ON BODY) Neurologic/Psychiatric: clinic scheduler II-XII nml as tested, no motor/sensory deficits, alert, normal mood/affect, oriented x 3 Skin: normal color, warm/dry; No ecchymosis (ANDREW DIAZ Bon RUSSO) Marylu Coma Score Best Eye Response: (4) Open Spontaneously Best Verbal Response: (5) Oriented Best Motor Response: (6) Obeys Commands Dowling Total: 15 (JOHN,ANDREW Bon RUSSO) Procedures/Interventions Suture Size: 5-0 (COLIN DIAZA Bon RUSSO) Progress/Results/Core Measures Results/Orders Lab Results Laboratory Tests Test 07/12/21 05:30 07/12/21 05:35 Range/Units White Blood Count 7.8 4.3-11.0 10^3/uL Red Blood Count 3.67 L 3.80-5.11 10^6/uL Hemoglobin 11.0 L 11.5-16.0 g/dL Hematocrit 36 35-52 % Mean Corpuscular Volume 98 80-99 fL Mean Corpuscular Hemoglobin 30 25-34 pg Mean Corpuscular Hemoglobin Concent 31 L 32-36 g/dL Red Cell Distribution Width 15.0 H 10.0-14.5 % Platelet Count 143 130-400 10^3/uL Mean Platelet Volume 9.9 9.0-12.2 fL Immature Granulocyte % (Auto) 1 % Neutrophils (%) (Auto) 76 H 42-75 % Lymphocytes (%) (Auto) 16 12-44 % Monocytes (%) (Auto) 6 0-12 % Eosinophils (%) (Auto) 1 0-10 % Basophils (%) (Auto) 0 0-10 % Neutrophils # (Auto) 5.9 1.8-7.8 10^3/uL Lymphocytes # (Auto) 1.2 1.0-4.0 10^3/uL Monocytes # (Auto) 0.5 0.0-1.0 10^3/uL Eosinophils # (Auto) 0.1 0.0-0.3 10^3/uL Basophils # (Auto) 0.0 0.0-0.1 10^3/uL Immature Granulocyte # (Auto) 0.1 0.0-0.1 10^3/uL Prothrombin Time 14.3 12.2-14.7 SEC INR Comment 1.1 0.8-1.4 Activated Partial Thromboplast Time 32 24-35 SEC Sodium Level 135 135-145 MMOL/L Potassium Level 4.1 3.6-5.0 MMOL/L Chloride Level 103 98-107 MMOL/L Carbon Dioxide Level 23 21-32 MMOL/L Anion Gap 9 5-14 MMOL/L Blood Urea Nitrogen 24 H 7-18 MG/DL Creatinine 1.10 0.60-1.30 MG/DL Estimat Glomerular Filtration Rate 48 BUN/Creatinine Ratio 22 Glucose Level 157 H 70-105 MG/DL Calcium Level 8.5 8.5-10.1 MG/DL Corrected Calcium 8.8 8.5-10.1 MG/DL Total Bilirubin 0.5 0.1-1.0 MG/DL Aspartate Amino Transf (AST/SGOT) 61 H 5-34 U/L Alanine Aminotransferase (ALT/SGPT) 43 0-55 U/L Alkaline Phosphatase 103 40-136 U/L Total Protein 8.7 H 6.4-8.2 GM/DL Albumin 3.6 3.2-4.5 GM/DL Urine Color YELLOW Urine Clarity CLEAR Urine pH 6.0 5-9 Urine Specific Micro 1.025 H 1.016-1.022 Urine Protein 2+ H NEGATIVE Urine Glucose (UA) NEGATIVE NEGATIVE Urine Ketones NEGATIVE NEGATIVE Urine Nitrite POSITIVE H NEGATIVE Urine Bilirubin NEGATIVE NEGATIVE Urine Urobilinogen 0.2 < = 1.0 MG/DL Urine Leukocyte Esterase NEGATIVE NEGATIVE Urine RBC (Auto) 1+ H NEGATIVE Urine RBC 2-5 H /HPF Urine WBC 5-10 H /HPF Urine Crystals NONE /LPF Urine Bacteria LARGE H /HPF Urine Casts PRESENT /LPF Urine Hyaline Casts 2-5 H /LPF Urine Mucus NEGATIVE /LPF Urine Culture Indicated YES (GUANAKITO CLIFTON MD) My Orders Orders - GUANAKITO CLIFTON MD Lactated Ringers (Lr 1000 Ml Iv Solution (07/12/21 06:45) Meropenem (Merrem 500 Mg) (07/12/21 06:45) Ed Admission (Communication) (07/12/21 07:09) (GUANAKITO CLIFTON MD) Medications Given in ED Current Medications Medications Dose Ordered Sig/Trevon Route Start Time Stop Time Status Last Admin Dose Admin Lactated Ringer's 1,000 ml @ 0 mls/hr Q0M ONCE IV 07/12/21 06:45 07/12/21 06:46 DC 07/12/21 07:00 0 MLS/HR Meropenem 500 mg/ Sodium Chloride 100 ml @ 200 mls/hr ONCE ONCE IV 07/12/21 06:45 07/12/21 07:14 DC 07/12/21 07:01 200 MLS/HR (GUANAKITO CLIFTON MD) Vital Signs/I&O 07/12/21 05:20 Temp 36.5 Pulse 64 Resp 16 B/P (MAP) 203/100 (134) Pulse Ox 97 O2 Delivery Nasal Cannula O2 Flow Rate 2.00 (GUANAKITO CLIFTON MD) Progress Progress Note : Progress Note O2 SATS 94% INITIALLY, THEN WOULD DROP INTO 80'S ON ROOM AIR. PLACED BACK ON O2 AT 2L/NC AND SATS UP TO MID 90'S AGAIN PT CONTINUES TO DENY FEELING SHORT OF BREATH 0600--CARE TURNED OVER TO DR. CLIFTON AT SHIFT CHANGE. (ANDREW DIAZ DO) Progress Note : Time: 07:21 Progress Note Care of this patient was assumed from Dr. Diaz at shift change. Left hip fracture has been identified on x-rays. I have discussed the case with Dr. Ledesma. He would like to perform surgery possibly as early as late morning. On review of her chart, reduced EF was noted on her last echocardiogram. Cardiology consultation is being sought before committing to surgery. I discussed the case with Dr. Wooten who will see her in consultation. Because of patient's medical problems including hypertension, reduced ejection fraction, and asthma, she will be admitted to the [facility] medical service to Dr. Lentz who accepts admission and will place orders. Urinary tract infection was identified on urinalysis and meropenem was ordered. Meropenem was selected due to penicil mendy allergy. On reexamination patient is comfortable and not requiring any further pain medication. She states she is breathing comfortably but accessory muscle use to force expiration is noted. We will administer a DuoNeb treatment in the ER. (GUANAKITO CLIFTON MD) Diagnostic Imaging Diagonstic Imaging: Xray Plain Films/CT/US/NM/MRI: pelvis, hip Comments X-rays of the pelvis and left hip viewed by me and report reviewed. See report below: NAME: LOKI LOPEZ [facility] REC#: [id number] PT STATUS: REG ER : 1940 PHYSICIAN: ANDREW DIAZ DO ADMIT DATE: 07/12/21/ER Draft Date of Exam:07/12/21 PELVIS WITH LEFT HIP 2-3 VIEWS INDICATION: Fall, left hip pain, swelling. COMPARISON: None FINDINGS: Single view of the pelvis, AP and lateral view of the left hip were obtained. The bony pelvis and right hip are intact. There is a displaced left femoral neck fracture. No dislocation identified. IMPRESSION: Displaced left femoral neck fracture Dictated on workstation # [id number] Dict: 07/12/21624 Trans: 07/12/21 06 [facility] [id number] Interpreted by: ROMY HCAIDEZ Diagonstic Imaging: Xray Plain Films/CT/US/NM/MRI: chest Comments Chest x-ray viewed by me and report reviewed. NAME: LOKI LOPEZ [facility] REC#: [id number] PT STATUS: REG ER : 1940 PHYSICIAN: ANDREW DIAZ DO ADMIT DATE: 07/12/21/ER Draft Date of Exam:07/12/21 CHEST 1 VIEW, AP/PA ONLY INDICATION: Hip pain, fall, fracture. COMPARISON: 01/15/2021. FINDINGS: Single view of the chest demonstrates stable cardiac enlargement. Lungs are clear. There is no pneumothorax but osseous structures are age-appropriate. IMPRESSION: Stable cardiac enlargement without pulmonary edema or acute infiltrate. Dictated on workstation # [id number] Dict: 07/12/21623 Trans: 07/12/21626 [id number] Interpreted by: ROMY CHAIDEZ Diagonstic Imaging: Xray Plain Films/CT/US/NM/MRI: leg Comments NAME: LOKI LOPEZ [facility] REC#: [id number] PT STATUS: REG ER : 1940 PHYSICIAN: ANDREW DIAZ DO ADMIT DATE: 07/12/21/ER Draft Date of Exam:07/12/21 FEMUR, LEFT, 2 VIEWS INDICATION: Left hip pain, swelling, fall COMPARISON: None FINDINGS: 4 views of the left femur demonstrate displaced left femoral neck fracture. The remainder of the femur and visualized knee are intact. IMPRESSION: Femoral neck fracture Dictated on workstation # [id number] Dict: 07/12/21609 Trans: 07/12/21611 [facility] [id number] Interpreted by: ROMY CHAIDEZ Reviewed: Reviewed by Me Diagonstic Imaging: Xray Plain Films/CT/US/NM/MRI: knee Comments NAME: LOKI LOPEZ [facility] REC#: [id number] PT STATUS: REG ER : 1940 PHYSICIAN: ANDREW DIAZ DO ADMIT DATE: 07/12/21/ER Draft Date of Exam:07/12/21 KNEE, LEFT, 2 VIEWS (AP & LAT) INDICATION: Fall, left knee injury, pain, swelling. COMPARISON: None FINDINGS: Two views of the left knee demonstrate diffuse osteopenia. There is no fracture or dislocation. Mild degenerative changes are present. There is no joint effusion or foreign body. IMPRESSION: No fracture or dislocation Dictated on workstation # [id number] Dict: 07/12/2114 Trans: 07/12/21 0617 [facility] [id number] Interpreted by: ROMY CHAIDEZ Reviewed: Reviewed by Me (GUANAKITO CLIFTON MD) Departure Communication (Admissions) Time/Spoke to Admitting Phy: 07:05 Dr. Aidee Ledesma at 06:47 Dr. Wooten at 07:05 (GUANAKITO CLIFTON MD) Impression Primary Impression: Closed left hip fracture Qualified Codes: S72.002A - Fracture of unspecified part of neck of left femur, initial encounter for closed fracture Additional Impressions: Urinary tract infection Qualified Codes: N39.0 - Urinary tract infection, site not specified Fall on same level Qualified Codes: W18.30XA - Fall on same level, unspecified, initial encounter Asthma Qualified Codes: J45.909 - Unspecified asthma, uncomplicated Disposition: ADMITTED INPATIENT Condition: Improved Admissions Decision to Admit Reason: Admit from ER (Trauma) Decision to Admit/Date: Jul 12, 2021 Time/Decision to Admit Time: 06:00 (GUANAKITO CLIFTON MD) Departure-Patient Inst. Referrals: ELZA FERGUSON DO (PCP) Primary Care Physician [facility] (Family) Primary Care Physician ANDREW DIAZ DO Jul 12, 2021 05:35 GUANAKITO CLIFTON MD Jul 12, 2021 07:24
[2021-07-12 05:37] LABS: BASOPHILS % (AUTO) 0 % (0-10); EOSINOPHILS # (AUTO) 0.1 10^3/uL (0.0-0.3); EOSINOPHILS % (AUTO) 1 % (0-10); HEMATOCRIT 36 % (35-52); LYMPHOCYTES # (AUTO) 1.2 10^3/uL (1.0-4.0); LYMPHOCYTES % (AUTO) 16 % (12-44); MEAN CORPUSCULAR HEMOGLOBIN 30 pg (25-34); MEAN CORPUSCULAR HGB CONC 31 g/dL (32-36); MEAN CORPUSCULAR VOLUME 98 fL (80-99); MEAN PLATELET VOLUME 9.9 fL (9.0-12.2); MONOCYTES # (AUTO) 0.5 10^3/uL (0.0-1.0); MONOCYTES % (AUTO) 6 % (0-12); NEUTROPHILS # (AUTO) 5.9 10^3/uL (1.8-7.8); NEUTROPHILS % (AUTO) 76 % (42-75); PLATELET COUNT 143 10^3/uL (130-400); WHITE BLOOD COUNT 7.8 10^3/uL (4.3-11.0)
[2021-07-12 05:47] LABS: ALBUMIN 3.6 GM/DL (3.2-4.5); POTASSIUM 4.1 MMOL/L (3.6-5.0)
[2021-07-12 05:49] LABS: CALCIUM 8.5 MG/DL (8.5-10.1)
[2021-07-12 05:50] LABS: TOTAL PROTEIN 8.7 GM/DL (6.4-8.2)
[2021-07-12 05:51] LABS: BILIRUBIN,TOTAL 0.5 MG/DL (0.1-1.0)
[2021-07-12 05:54] LABS: CREATININE SERUM 1.1 MG/DL (0.60-1.30)
[2021-07-12 05:59] LABS: INR 1.1 (0.8-1.4); PROTHROMBIN TIME PATIENT 14.3 SEC (12.2-14.7)
[2021-07-12 06:01] LABS: BILIRUBIN,URINE NEGATIVE (NEGATIVE); CLARITY,URINE CLEAR; COLOR,URINE YELLOW; GLUCOSE, URINE (UA) NEGATIVE (NEGATIVE); KETONES,URINE NEGATIVE (NEGATIVE); LEUKOCYTE ESTERASE ,URINE NEGATIVE (NEGATIVE); NITRITE,URINE POSITIVE (NEGATIVE); PROTEIN,URINE 2+ (NEGATIVE)
[2021-07-12 06:08] LABS: BACTERIA,URINE LARGE /HPF
--- NOTE | 2021-07-12 06:13 | Diagnostic Imaging Report ---
INDICATION: Left hip pain, swelling, fall COMPARISON: None FINDINGS: 4 views of the left femur demonstrate displaced left femoral neck fracture. The remainder of the femur and visualized knee are intact. IMPRESSION: Femoral neck fracture Dictated by: Dictated on workstation # [id number]
--- NOTE | 2021-07-12 06:18 | Diagnostic Imaging Report ---
INDICATION: Fall, left knee injury, pain, swelling. COMPARISON: None FINDINGS: Two views of the left knee demonstrate diffuse osteopenia. There is no fracture or dislocation. Mild degenerative changes are present. There is no joint effusion or foreign body. IMPRESSION: No fracture or dislocation Dictated by: Dictated on workstation # [id number]
--- NOTE | 2021-07-12 06:27 | Diagnostic Imaging Report ---
INDICATION: Hip pain, fall, fracture. COMPARISON: 01/15/2021. FINDINGS: Single view of the chest demonstrates stable cardiac enlargement. Lungs are clear. There is no pneumothorax but osseous structures are age-appropriate. IMPRESSION: Stable cardiac enlargement without pulmonary edema or acute infiltrate. Dictated by: Dictated on workstation # [id number]
--- NOTE | 2021-07-12 06:28 | Diagnostic Imaging Report ---
INDICATION: Fall, left hip pain, swelling. COMPARISON: None FINDINGS: Single view of the pelvis, AP and lateral view of the left hip were obtained. The bony pelvis and right hip are intact. There is a displaced left femoral neck fracture. No dislocation identified. IMPRESSION: Displaced left femoral neck fracture Dictated by: Dictated on workstation # [id number]
[2021-07-12] MEDS ORDERED: LACTATED RINGERS 1,000 ML IV ONE (06:45)
[2021-07-12] MEDS ORDERED: MEROPENEM 500 MG in NS (IVPB) 100 ML IV ONE (06:45)
[2021-07-12] MEDS ORDERED: CALCIUM CARBONATE 500 MG (TUMS) TAB.CHEW PO PRN (07:30)
[2021-07-12] MEDS ORDERED: ALPRAZolam 0.25 MG (XANAX) TAB PO PRN (07:30)
[2021-07-12] MEDS ORDERED: ONDANSETRON 4 MG/2 ML (SDV) Z0FRAN IVP PRN ×2 (07:30→14:30)
[2021-07-12] MEDS ORDERED: LORazepam INJ 2 MG/ML (ATIVAN) VIAL IVP PRN (07:30)
[2021-07-12] MEDS ORDERED: ONDANSETRON 4 MG (ZOFRAN) ORAL DISSOLVE TAB PO PRN (07:30)
[2021-07-12] MEDS ORDERED: HYDROcodone/APAP 5 MG/325 MG (LORTAB) TAB PO PRN (07:30)
[2021-07-12] MEDS ORDERED: HALOPERIDOL 5 MG/ML (HALDOL) VIAL IM PRN (07:30)
[2021-07-12] MEDS ORDERED: MELATONIN 3 MG TABLET PO PRN (07:30)
[2021-07-12] MEDS ORDERED: RT-ALBUTEROL/IPRATROPIUM 3 ML (DUONEB) VIAL INH ONE (07:30)
[2021-07-12] MEDS ORDERED: DOCUSATE SODIUM 100 MG (COLACE) CAP PO PRN (07:30)
[2021-07-12] MEDS ORDERED: LOPERAMIDE 2 MG (IMODIUM) TABLET PO PRN (07:30)
[2021-07-12] MEDS ORDERED: fentaNYL INJ 100 MCG/2 ML AMP IVP PRN ×3 (07:30→14:30)
--- NOTE | 2021-07-12 09:00 | Consultation-Cardiology ---
HPI-Cardiology Cardiology Consultation: Date of Consultation 07/12/21 Time Seen by a Provider: 09:00 Date of Admission 07-12-21 Attending Physician Maya Lentz DO Admitting Physician Jae Vences DO Consulting Physician Nyla Wooten MD Primary Freight Dispatcher: Dr. Thomas HPI: Chief Complaint: Cardiac eval prior to surgery Ms. Su is an 80 yr old female admitted to [facility] from the ED following a non- syncopal fall at home resulting in a left hip fracture. She reports she tripped during the night when getting up to use the BR. No c/o CP, palpitations, syncope or near syncope. No c/o dyspnea. No c/o n/v/d. No c/o fever or chills. Family x1 is at the bedside. States she has been compliant with her m edications. Review of Systems-Cardiology Review of Systems Constitutional: No chills, No fever, No lightheadedness Eyes: No vision change Ears/Nose/Throat: No epistaxis, No recent hearing loss Respiratory: As described under HPI Cardiovascular: As described under HPI Gastrointestinal: No constipation, No diarrhea, No nausea, No vomiting Genitourinary: No dysuria, No hematuria Musculoskeletal: other (right leg/hip pain) Skin: No rash on exposed areas, No ulcerations on exposed areas Psychiatric/Neurological: No anxiety, No depression, No focal weakness, No syncope Hematologic: No bleeding abnormalities CTD-Ooxdss-Lfldyr Hx Patient Social History Smoking Status: Former Smoker 2nd Hand Smoke Exposure: Yes Have you traveled recently?: No Alcohol Use?: No Pt feels they are or have been: No Tobacco type used: Cigarettes Immunizations Up To Date Tetanus Booster (TDap): Less than 5yrs Date of Pneumonia Vaccine: Mar 23, 2016 Date of Influenza Vaccine: Apr 22, 2020 Past Medical History PMH As described under Assessment. Family Medical History Family Medical History: No reported family h/o CAD. Allergies and Home Medications Allergies Coded Allergies: cortisone (Verified Allergy, Unknown, 01/30/07) diphenhydramine (Verified Allergy, Unknown, 01/30/07) penicillin G (Verified Allergy, Unknown, 07/12/21) The patient is unaware that she has a penicillin allergy. She does not remember ever taking it and if she did what the reaction was. It has not been recently. Patient Home Medication List Amlodipine Besylate (Amlodipine Besylate) 5 Mg Tablet, 5 MG PO DAILY Prescribed by: MAYA LENTZ on 07/21/21 1146 Aspirin (Aspirin EC) 81 Mg Tablet.dr, 81 MG PO DAILY Prescribed by: MAYA LENTZ on 07/21/21 114 Atorvastatin Calcium (Atorvastatin Calcium) 20 Mg Tablet, 20 MG PO DAILY Prescribed by: MAYA LENTZ on 07/21/21 1146 Cetirizine HCl (Cetirizine HCl) 10 Mg Tablet, 10 MG PO DAILY Prescribed by: MAYA LENTZ on 07/21/21 1146 Enoxaparin Sodium (Enoxaparin Sodium) 40 Mg/0.4 Ml Syringe, 40 MG SC Q24H Prescribed by: MAYA LENTZ on 07/21/21 1146 Furosemide (Furosemide) 20 Mg Tablet, 20 MG PO DAILY Prescribed by: MAYA LENTZ on 07/21/21 1146 Hydrocodone Bit/Acetaminophen (HYDROcodone/APAP 10/325 TABLET) 1 Ea Tab, 1 EA PO Q4H PRN for PAIN-MODERATE (5-7) Prescribed by: MAYA LENTZ on 07/21/21 1146 Lisinopril (Lisinopril) 40 Mg Tablet, 40 MG PO DAILY Prescribed by: MAYA LENTZ on 07/21/21 1146 Metoclopramide HCl (Metoclopramide HCl) 10 Mg Tablet, 10 MG PO BID Prescribed by: MAYA LENTZ on 07/21/21 1146 Metoprolol Succinate (Metoprolol Succinate) 100 Mg Tab.er.24h, 100 MG PO DAILY Prescribed by: MAYA LENTZ on 07/21/21 1146 Montelukast Sodium (Montelukast Sodium) 10 Mg Tablet, 10 MG PO HS Prescribed by: MAYA LENTZ on 07/21/21 1146 Paroxetine HCl (Paroxetine HCl) 40 Mg Tablet, 40 MG PO HS Prescribed by: MAYA LENTZ on 07/21/21 1146 Sennosides/Docusate Sodium (Stool Softener-Laxative Tablet) 1 Each Tablet, 2 EA PO BID Prescribed by: MAYA LENTZ on 07/21/21 1146 Trazodone HCl (Trazodone HCl) 50 Mg Tablet, 50 MG PO HS PRN for SLEEP Prescribed by: MAYA LENTZ on 07/21/21 1146 Discontinued Medications Metoprolol Succinate (Metoprolol Succinate) 50 Mg Tab.er.24h, 50 MG PO DAILY, (Reported) Entered as Reported by: JULIETH MAYA on 09/27/16 0839 Last Action: Continued Physical Exam-Cardiology Physical Exam Vital Signs/I&O 07/26/21 07/26/21 07/26/21 07/26/21 04:14 07:42 09:00 09:51 Temp 36.2 36.1 Pulse 66 64 Resp 18 18 B/P (MAP) 162/70 (100) 172/71 (104) Pulse Ox 95 94 95 O2 Delivery Nasal Cannula Nasal Cannula Nasal Cannula Nasal Cannula O2 Flow Rate 1.00 1.00 1.00 1.00 07/26/21 07/26/21 09:56 11:32 Temp 36.4 Pulse 64 Resp 20 B/P (MAP) 150/71 (97) Pulse Ox 93 O2 Delivery Room Air Room Air O2 Flow Rate 0.00 07/26/21 00:00 Intake Total 565 ml Output Total 1000 ml Balance -435 ml Capillary Refill : Less Than 3 Seconds Constitutional: AAO x 3, well-developed, well-nourished HEENT: PERRL, hearing is well preserved Neck: No carotid bruit; carotid pulses are 2 + bilaterally Respiratory: No accessory muscle use, No respiratory distress; chest expansion is symmetric, chest is bilaterally symmetric, lungs clear to auscultation Cardiovascular: regular rate-rhythm; No JVD; S1 and S2 Gastrointestinal: No tender; soft Extremities: no lower extremity edema bilateral Neurologic/Psychiatric: grossly intact (moves all extremities; LLE not manipu lated d/t fracture) Skin: No rash on exposed areas, No ulcerations on exposed areas Data Review Labs Laboratory Tests 07/25/21 16:15: SARS-CoV-2 RNA (RT-PCR) Negative Microbiology 07/15/21 Blood Culture - Final, Complete No growth 07/12/21 MRSA Screen - Final, Complete MRSA not isolated 07/12/21 Urine Culture - Final, Complete Escherichia coli Radiology NAME: LOKI SU [facility] REC#: [id number] PT STATUS: REG ER : 1940 PHYSICIAN: ANDREW LOPEZ DO ADMIT DATE: 07/12/21/ER Draft Date of Exam:07/12/21 CHEST 1 VIEW, AP/PA ONLY INDICATION: Hip pain, fall, fracture. COMPARISON: 01/15/2021. FINDINGS: Single view of the chest demonstrates stable cardiac enlargement. Lungs are clear. There is no pneumothorax but osseous structures are age-appropriate. IMPRESSION: Stable cardiac enlargement without pulmonary edema or acute infiltrate. Dictated on workstation # [id number] Dict: 07/12/21623 Trans: 07/12/21626 [id number] Interpreted by: ROMY CHAIDEZ Electronically signed by: A/P-Cardiology Assessment/Admission Diagnosis S/P non-syncopal fall resulting in left hip fracture UTI - management per medical services Coronary artery disease - Cardiac catheterization done on September [address] Thomas showing tortuous coronary system with mild disease nonobstructive disease Left bundle Branch Block, chronic Chronic systolic CHF - Echocardiogram of 10-22-[address] Thomas showed LVEF 35-40%. Mild MR and AoR. PASP 35-40 mmHg Nonobstructive carotid artery stenosis per carotid duplex done January [address] Thomas Tobaccoism - cessation advised Hypertension Hyperlipidemia, History of elevated liver enzymes Anxiety Discussion and Recomendations S/P non-syncopal fall resulting in left hip fracture - management per Dr. Ledesma EKG Records from Dr. Thomas reviewed Advise continuation of BB, ESTRELLITA and ASA Risk for non-cardiac surgery is intermediate. Discussed risk with pt and family member at the bedside. Verbalize understanding Monitor lab Replace electrolytes as indicated We would like to thank medical services for this consult Clinical Quality Measures DVT/VTE Risk/Contraindication: Contraindications-Pharm: Pt at low risk Other: or ADALBERTO INGRAM Jul 12, 2021 09:00
[2021-07-12] MEDS: RT-ALBUTEROL SULF 2.5 MG/3 ML PRE-MIX VIAL INH SCH ×2 (09:15→18:24)
[2021-07-12] MEDS: cefTRIAXone 1 GM PRE-MIX 50 ML IV SCH (09:38)
[2021-07-12] MEDS: NS IV 1000 ML 1,000 ML IV SCH ×2 (09:38→20:20)
[2021-07-12] MEDS: polyethylene glycoL POWDER 17 GM (MIRALAX) PACK PO SCH ×2 (09:38→22:26)
[2021-07-12] MEDS: SENNA W/DOCUSATE (SENOKOT S) TABLET PO SCH ×2 (09:39→22:27)
--- NOTE | 2021-07-12 10:23 | Consultation - Ortho ---
Consult - Ortho Subjective Date of Exam 07/12/21 Chief Complaint Displaced subcapital fracture left hip HPI/Events since last exam Mrs. Su is an 80-year-old white female who fell earlier this morning when she tripped over a shower chair. She was brought to the emergency room where she evaluated and x-rayed noted to have a displaced subcapital fracture left hip. She was admitted by Dr. Hoskins for surgical treatment of the left hip fracture. She denies any previous problems with the left hip. She lives with her granddaughter. She ambulates without a cane or walker. She denies any other injuries. In the emergency room she was complaining of some left knee pain but x-ray shows no fractures Medical, Surgical History Reviewed and no additions or changes. She does have a cardiac history and is been worked up with Angiography and echo. Social History Reviewed and no additions or change Family History Reviewed and no additions or change Review of Systems Reviewed and no additions or changes Allergies: Coded Allergies: cortisone (Verified Allergy, Unknown, 01/30/07) diphenhydramine (Verified Allergy, Unknown, 01/30/07) penicillin G (Verified Allergy, Unknown, 07/12/21) The patient is unaware that she has a penicillin allergy. She does not remember ever taking it and if she did what the reaction was. It has not been recently. Home Meds Active Scripts Triamcinolone Acet (Triamcinolone Acetonide 0.1% Cream) 15 Gm Cr, 0 GM TOP BID PRN for ITCHING AND RASH, #1 TUBE Prov:MAE HOSKINS DO 10/25/20 Pantoprazole Sodium (Pantoprazole Sodium) 40 Mg Tablet., 40 MG PO DAILY, #30 TAB Prov:MAE HOSKINS DO 10/25/20 Furosemide (Furosemide) 20 Mg Tablet, 20 MG PO BID@07,17, #60 TAB Prov:MAE HOSKINS DO 10/25/20 Reported Medications Tizanidine HCl (Tizanidine HCl) 2 Mg Capsule, 2 MG PO DAILY, CAP 11/18/20 Omeprazole (Omeprazole) 20 Mg Tab.rap., 20 MG PO DAILY, EA 11/18/20 Methocarbamol (Methocarbamol) 750 Mg Tablet, 750 MG PO DAILY for Back Pain, TAB 11/18/20 Aspirin (Aspirin EC) 81 Mg Tablet.dr, 81 MG PO DAILY, TAB 10/22/20 Fluticasone Propionate (Flovent Hfa 110 mcg) 1 Ea Aero, 1 EA IH BID PRN for SHORTNESS OF BREATH, EA 10/22/20 Montelukast Sodium (Montelukast Sodium) 10 Mg Tablet, 10 MG PO HS, TAB 10/22/20 Lisinopril (Lisinopril) 40 Mg Tablet, 40 MG PO DAILY, TAB 10/22/20 Atorvastatin Calcium (Atorvastatin Calcium) 10 Mg Tablet, 10 MG PO DAILY, TAB 10/22/20 Hydrocodone/Acetaminophen (Hydrocodone-Acetamin 5-325 mg) 1 Each Tablet, 1 EA PO BID PRN for PAIN-MODERATE (5-7), TAB 10/22/20 Metoclopramide HCl (Metoclopramide HCl) 10 Mg Tablet, 10 MG PO BID, TAB 09/27/16 Paroxetine HCl (Paroxetine HCl) 20 Mg Tablet, 20 MG PO DAILY, TAB 09/27/16 Cetirizine HCl (Cetirizine HCl) 10 Mg Tablet, 10 MG PO DAILY, TAB 09/27/16 Metoprolol Succinate (Metoprolol Succinate) 50 Mg Tab.er.24h, 50 MG PO DAILY, TAB 09/27/16 Objective Exam Constitutional: [] HEENT: [] Neck: No pain with palpation or range of motion[] Cardiovascular: [] Respiratory: [] Gastrointestinal: [] Genitourinary: [] Skin: [] Back/Spine: [No pain with palpation] Extremities: [No pain with palpation or range of motion. No crepitation or deformity. Normal sensation with good cap refill to the fingers and thumb. Equal pulses. Good strength both upper extremities Lower extremitiespain with palpation range of motion left hip. No pain with palpation left knee. No pain right hip right knee or both ankles. She can dorsiflex plantarflex foot and ankles without pain or weakness. Normal sensation of the foot and toes with good cap refill and equal pulses] Neurologic: [] Psychiatric: [] Hematologic/lymphatic/immunologic: [] Vital Signs Vital Signs Date Time Temp Pulse Resp B/P (MAP) Pulse Ox O2 Delivery O2 Flow Rate FiO2 07/12/21 08:00 35.9 78 20 191/86 (121) 96 Room Air 07/12/21 07:31 75 99 167/75 99 Nasal Cannula 2.00 07/12/21 07:27 98 Nasal Cannula 3.00 07/12/21 05:20 36.5 64 16 203/100 (134) 97 Nasal Cannula 2.00 Lab Results Laboratory Tests 07/12/21 05:30: White Blood Count 7.8, Red Blood Count 3.67L, Hemoglobin 11.0L, Hematocrit 36, Mean Corpuscular Volume 98, Mean Corpuscular Hemoglobin 30, Mean Corpuscular Hemoglobin Concent 31L, Red Cell Distribution Width 15.0H, Platelet Count 143, Mean Platelet Volume 9.9, Immature Granulocyte % (Auto) 1, Neutrophils (%) (Auto) 76H, Lymphocytes (%) (Auto) 16, Monocytes (%) (Auto) 6, Eosinophils (%) (Auto) 1, Basophils (%) (Auto) 0, Neutrophils # (Auto) 5.9, Lymphocytes # (Auto) 1.2, Monocytes # (Auto) 0.5, Eosinophils # (Auto) 0.1, Basophils # (Auto) 0.0, Immature Granulocyte # (Auto) 0.1, Prothrombin Time 14.3, INR Comment 1.1, Activated Partial Thromboplast Time 32, Sodium Level 135, Potassium Level 4.1, Chloride Level 103, Carbon Dioxide Level 23, Anion Gap 9, Blood Urea Nitrogen 24H, Creatinine 1.10, Estimat Glomerular Filtration Rate 48, BUN/Creatinine Ratio 22, Glucose Level 157H, Calcium Level 8.5, Corrected Calcium 8.8, Total Bilirubin 0.5, Aspartate Amino Transf (AST/SGOT) 61H, Alanine Aminotransferase (ALT/SGPT) 43, Alkaline Phosphatase 103, Total Protein 8.7H, Albumin 3.6 07/12/21 05:35: Urine Color YELLOW, Urine Clarity CLEAR, Urine pH 6.0, Urine Specific [place] 1.025H, Urine Protein 2+H, Urine Glucose (UA) NEGATIVE, Urine Ketones NEGATIVE, Urine Nitrite POSITIVEH, Urine Bilirubin NEGATIVE, Urine Urobilinogen 0.2, Urine Leukocyte Esterase NEGATIVE, Urine RBC (Auto) 1+H, Urine RBC 2-5H, Urine WBC 5- 10H, Urine Crystals NONE, Urine Bacteria LARGEH, Urine Casts PRESENT, Urine Hyaline Casts 2-5H, Urine Mucus NEGATIVE, Urine Culture Indicated YES Imaging X-rays were reviewed of the pelvis and left hip as well as the femur and it shows a displaced subcapital fracture left hip Assessment and Plan Assessment Displaced subcapital fracture left hip Problem List Displaced subcapital fracture left hip Plan Treatment options were discussed with the patient and her family. I discussed nonoperative treatment as well as operative treatment. Discussed the procedure risk complications of a cemented bipolar hemiarthroplasty. They understand she is at increased risk due to her cardiac disease. They would like to proceed with surgical treatment that being a cemented bipolar hemiarthroplasty. I discussed blood loss, infection and DVT prophylaxis. Also discussed physical therapy and potential to be transferred to rehab for additional treatment prior to discharge. Again the understand the procedure risk complications have no further questions or concerns. Plan on surgery today at approximately noon. Also discussed penicillin allergy. She has been given a gram of Rocephin already without any reaction so they understand that the risk of allergic reaction to cephalosporins is minimal to none Final Diagonsis Displaced subcapital fracture left hip Level of the visit: Level 3 MEIR CUMMINGS MD Jul 12, 2021 10:23
[2021-07-12] MEDS ORDERED: lisINopril 20 MG (PRINIVIL) TABLET PO NR (10:26)
[2021-07-12] MEDS ORDERED: meTOproloL SUCCINATE 50 MG (TOPROL XL) TAB PO NR (10:26)
[2021-07-12] MEDS ORDERED: NEO/POLY/BAC (NEOSPORIN) OINT 15 GM TUBE ONE (11:31)
[2021-07-12] MEDS: LACTATED RINGERS 1,000 ML IV PRN ×2 (11:35→12:55)
[2021-07-12] MEDS ORDERED: proPOfol 200 MG/20 ML (DIPRIVAN) VIAL IV ONE (11:41)
[2021-07-12] MEDS ORDERED: SEVOFLURANE (ULTANE) 15 ML INHAL SOLN ONE ×2 (11:41→13:52)
[2021-07-12] MEDS ORDERED: LIDOCAINE PF 2% 5 ML (XYLOCAINE) VIAL ONE (11:41)
[2021-07-12] MEDS ORDERED: fentaNYL INJ 100 MCG/2 ML AMP ONE (11:42)
[2021-07-12] MEDS ORDERED: ROCURONIUM 50 MG/5 ML (ZEMURON) VIAL IV ONE (11:44)
[2021-07-12] MEDS ORDERED: ceFAZolin INJECTION 2,000 MG ONE (11:55)
--- NOTE | 2021-07-12 12:05 | History & Physical-Hospitalist ---
KATHRYN HARRISON MED STUDENT 07/12/21 1205: History of Present Illness HPI/Chief Complaint L Hip Fracture Mrs Su is a 80yo female that presented to the ER on 07/12 after falling at night while going ot the bathroom. She states she was on the floor for a few hours before anyone found her. She did not hit her head or pass out. She did have pain in the L knee. Xrays did not show a knee fracture but she did have a L hip fracture. She has a history of low EF and so cardiology has been consulted and she is getting echo this morning to make sure she is good to go to surgery. She was also found to have UTI and is currently being treated with meropenem. This morning she is laying in bed and states that she is doing okay pain machuca. She has not been eating or drinking due to impending surgery. She does not know when her last BM was. She does not have any concerns this morning aside from getting her hip fixed. Source: patient Exam Limitations: no limitations Date Seen 07/12/21 Time Seen by a Provider: 08:25 Attending Physician Maya Lentz DO PCP Jae Vences DO Referring Physician Date of Admission Jul 12, 2021 at 07:10 Home Medications & Allergies Home Medications Reviewed patient Home Medication Reconciliation performed by pharmacy medication reconciliations mapping technician and/or nursing. Patients Allergies have been reviewed. Allergies Allergies Coded Allergies cortisone (Verified Allergy, Unknown, 01/30/07) diphenhydramine (Verified Allergy, Unknown, 01/30/07) penicillin G (Verified Allergy, Unknown, 07/12/21) The patient is unaware that she has a penicillin allergy. She does not remember ever taking it and if she did what the reaction was. It has not been recently. Past Zfrswxm-Dkxfsx-Vhnntj Hx Patient Social History Tobacco Use?: Yes Tobacco type used: Cigarettes Smoking Status: Former Smoker Substance use?: No Alcohol Use?: No Pt feels they are or have been: No Immunizations Up To Date Date of Influenza Vaccine: Apr 22, 2020 Tetanus Booster (TDap): Unknown PED Vaccines UTD: Yes Date of Pneumonia Vaccine: Mar 23, 2016 Seasonal Allergies Seasonal Allergies: Yes Current Status Advance Directives: No Communicates: Verbally Primary Language: Belgian Preferred Spoken Language: Belgian Implanted or Applied Medical D: None Past Medical History Surgeries: Section, Gallbladder, Hysterectomy, Oophorectomy, Orthopedic, Tonsillectomy Asthma, COPD High Cholesterol, Hypertension Sexually Transmitted Disease: No UTI-Chronic Gastroesophageal Reflux Arthritis Blood Disorders: Yes (ANEMIA) Adverse Reaction/Blood Tranf: No PMHx: HTN CHF SurgHx: Cholecystectomy C section Hysterectomy Breast biopsy Family Medical History No Pertinent Family Hx, Cancer Review of Systems Constitutional: No chills, No diaphoresis, No dizziness, No fever, No malaise EENTM: No hearing loss, No ear pain, No blurred vision, No double vision, No vision loss Respiratory: No cough, No dyspnea on exertion, No hemoptysis, No orthopnea, No phlegm, No short of breath, No wheezing Cardiovascular: No chest pain, No edema, No palpitations, No syncope Gastrointestinal: No abdominal pain, No constipation, No diarrhea, No d ysphagia, No hematemesis, No melena, No nausea, No vomiting Genitourinary: No dysuria, No frequency, No hematuria Musculoskeletal: other (Leg and hip pain) Skin: No rash Psychiatric/Neurological: Denies Headache Physical Exam Physical Exam Vital Signs Vital Signs - First Documented 07/12/21 05:20 Temp 36.5 Pulse 64 Resp 16 B/P (MAP) 203/100 (134) Pulse Ox 97 O2 Delivery Nasal Cannula O2 Flow Rate 2.00 Capillary Refill : Less Than 3 Seconds Height, Weight, BMI Height: 5'4.00" Weight: 188lbs. 0.0oz. 85.866254lq; 32.00 BMI Method:Stated General Appearance: No Apparent Distress, WD/WN Eyes: Bilateral Eye Normal Inspection, Bilateral Eye PERRL, Bilateral Eye EOMI HEENT: PERRL/EOMI, Pharynx Normal, Moist Mucous Membranes Neck: Supple Respiratory: Chest Non Tender, Lungs Clear, Normal Breath Sounds, No Accessory Muscle Use, No Respiratory Distress Cardiovascular: Regular Rate, Rhythm, No Edema, No Murmur, Normal Peripheral Pulses Gastrointestinal: Normal Bowel Sounds, No Organomegaly, No Pulsatile Mass, Non Tender, Soft Rectal: Deferred Extremity: Normal Capillary Refill, No Calf Tenderness, No Pedal Edema Neurologic/Psychiatric: Alert, Oriented x3, Normal Mood/Affect Skin: Normal Color, Warm/Dry Results Results/Procedures Labs Laboratory Tests 07/12/21 05:30 Patient resulted labs reviewed. Imaging NAME: LOK[facility] SU [facility] REC#: [id number] PT STATUS: ADM IN : 1940 PHYSICIAN: ANDREW LOPEZ DO ADMIT DATE: 07/12/21 Signed Date of Exam:07/12/21 CHEST 1 VIEW, AP/PA ONLY INDICATION: Hip pain, fall, fracture. COMPARISON: 01/15/2021. FINDINGS: Single view of the chest demonstrates stable cardiac enlargement. Lungs are clear. There is no pneumothorax but osseous structures are age-appropriate. IMPRESSION: Stable cardiac enlargement without pulmonary edema or acute infiltrate. Dictated by: Dictated on workstation # [id number] Dict: 07/12/21623 Trans: 07/12/211015 [id number] Interpreted by: ROMY CHAIDEZ Electronically signed by: ROMY CHAIDEZ 07/12/21 1016 NAME: LOKI SU [facility] REC#: [id number] PT STATUS: ADM IN : 1940 PHYSICIAN: ANDREW LOPEZ DO ADMIT DATE: 07/12/21 Signed Date of Exam:07/12/21 FEMUR, LEFT, 2 VIEWS INDICATION: Left hip pain, swelling, fall COMPARISON: None FINDINGS: 4 views of the left femur demonstrate displaced left femoral neck fracture. The remainder of the femur and visualized knee are intact. IMPRESSION: Femoral neck fracture Dictated by: Dictated on workstation # [id number] Dict: 07/12/21609 Trans: 07/12/21 1016 [facility] [id number] Interpreted by: ROMY CHAIDEZ Electronically signed by: ROMY CHAIDEZ 07/12/21 1016 NAME: LOKI SU [facility] REC#: [id number] PT STATUS: ADM IN : 1940 PHYSICIAN: ANDREW LOPEZ DO ADMIT DATE: 07/12/21 Signed Date of Exam:07/12/21 PELVIS WITH LEFT HIP 2-3 VIEWS INDICATION: Fall, left hip pain, swelling. COMPARISON: None FINDINGS: Single view of the pelvis, AP and lateral view of the left hip were obtained. The bony pelvis and right hip are intact. There is a displaced left femoral neck fracture. No dislocation identified. IMPRESSION: Displaced left femoral neck fracture Dictated by: Dictated on workstation # [id number] Dict: 07/12/2125 Trans: 07/12/21 [facility] [id number] Interpreted by: ROMY CHAIDEZ Electronically signed by: ROMY CHAIDEZ 07/12/21 1016 NAME: LOKI SU [facility] REC#: [id number] PT STATUS: ADM IN : 1940 PHYSICIAN: ANDREW LOPEZ DO ADMIT DATE: 07/12/21 Signed Date of Exam:07/12/21 KNEE, LEFT, 2 VIEWS (AP & LAT) INDICATION: Fall, left knee injury, pain, swelling. COMPARISON: None FINDINGS: Two views of the left knee demonstrate diffuse osteopenia. There is no fracture or dislocation. Mild degenerative changes are present. There is no joint effusion or foreign body. IMPRESSION: No fracture or dislocation Dictated by: Dictated on workstation # [id number] Dict: 07/12/21613 Trans: 07/12/21 1016 [facility] [id number] Interpreted by: ROMY CHAIDEZ Electronically signed by: ROMY CHAIDEZ 07/12/21 1016 Assessment/Plan Admission Diagnosis L hip fracture Admission Status: Inpatient Order (span 2 midnights) Reason for Inpatient Admission: L hip Fracture/repair Assessment and Plan L hip Fracture -Pt being evaluated for surgery -Echo this morning -Pt is not anemic at this point -Should be T/crossed UTI -On meropenem -BUN and creat not elevated but will continue to monitor Hx of low EF -Echo this morning -Cardiology consulted Hx of HTN, CHF -Monitor vitals and fluid status -Meds as necessary Clinical Quality Measures DVT/VTE Risk/Contraindication: Contraindications-Pharm: Pt at low risk Other: or MAYA LENTZ DO 07/13/21 0618: History of Present Illness HPI/Chief Complaint CC: Left femoral neck fracture HPI: This is a [facility] patient who lives with her son and [id number] who fell on the floor and suffered a left femoral neck fracture. Pt is very frail but appears to meet criteria for repair. Benefits outweigh the medical risk in my opinion. I have checked meds and labs and I have consulted cardiology and echocardiogram will be obtained to evaluate the systolic dysfunction that was seen on prior exam. Source: patient Exam Limitations: no limitations Past Twdxidt-Kjeevq-Luhwer Hx Patient Social History Marrital Status: single Employed/Student: retired Smoking Status: Never a Smoker Past Medical History Cardiomyopathy, Hypertension Review of Systems Constitutional: see HPI, weakness EENTM: no symptoms reported Respiratory: no symptoms reported Cardiovascular: no symptoms reported Gastrointestinal: no symptoms reported Genitourinary: no symptoms reported Musculoskeletal: no symptoms reported Skin: no symptoms reported Psychiatric/Neurological: No Symptoms Reported All Other Systems Reviewed Negative Unless Noted: Yes Physical Exam Physical Exam General Appearance: No Apparent Distress, Chronically ill, Other (Frail) Eyes: Right Eye Normal Inspection, Right Eye PERRL HEENT: PERRL/EOMI, Normal ENT Inspection, Pharynx Normal, Moist Mucous Membranes Neck: Full Range of Motion, Normal Inspection, Non Tender Respiratory: Chest Non Tender, Lungs Clear, Normal Breath Sounds, No Accessory Muscle Use, No Respiratory Distress Cardiovascular: Regular Rate, Rhythm, No Edema, No Gallop, No JVD, No Murmur, Normal Peripheral Pulses Gastrointestinal: Normal Bowel Sounds, No Organomegaly, No Pulsatile Mass, Non Tender, Soft Back: Normal Inspection, No CVA Tenderness, No Vertebral Tenderness Extremity: Normal Capillary Refill, Normal Inspection, Normal Range of Motion (Except lower extremities due to pain), Non Tender, No Calf Tenderness, No Pedal Edema Neurologic/Psychiatric: Alert, Oriented x3, No Motor/Sensory Deficits, Normal Mood/Affect Skin: Normal Color, Warm/Dry Lymphatic: No Adenopathy Assessment/Plan Admission Diagnosis Assessment: Left femoral neck fracture Frail status Cardiomyopathy Plan: Surgical repair since benefits outweigh medical risk Supportive care Cardiology consult Echo Admission Status: Inpatient Order (span 2 midnights) Reason for Inpatient Admission: Left hip fracture Supervisory-Addendum Brief Verification & Attestation Participated in pt care: history, MDM, physical Personally performed: exam, history, MDM, supervision of care Care discussed with: Medical Student Procedures: n/a Results interpretation: Verified all documentation Verification and Attestation of Medical Student E/M Service A medical student performed and documented this service in my presence. I reviewed and verified all information documented by the medical student and made modifications to such information, when appropriate. I personally performed the physical exam and medical decision making. Maya Lentz, Jul 13, 2021,06:16 KATHRYN HARRISON MED STUDENT Jul 12, 2021 12:05 MAYA LENTZ DO Jul 13, 2021 06:18
[2021-07-12] MEDS ORDERED: BUPIVACAINE 0.25% 30 ML (SENSORCAINE) VIAL ONE (12:42)
[2021-07-12] MEDS ORDERED: ONDANSETRON 4 MG/2 ML (SDV) Z0FRAN ONE (13:18)
[2021-07-12] MEDS ORDERED: GLYCOPYRROLATE 0.2 MG/ML (ROBINUL) 2 ML VIAL ONE (13:19)
[2021-07-12] MEDS ORDERED: NEOSTIGMINE 3 MG/3 ML VIAL ONE (13:19)
[2021-07-12] MEDS ORDERED: LACTATED RINGERS 1,000 ML IV SCH (14:30)
[2021-07-12] MEDS ORDERED: morphine INJ 10 MG/ML 1ML (SYR OR VIAL) IVP ONE (14:30)
--- NOTE | 2021-07-12 14:38 | Operative Report - Ortho ---
Operative Report Surgeon (s)/Manager Cath Lab (s) Surgeon MEIR CUMMINGS MD Manager Cath Lab n/a Pre-Operative Diagnosis Displaced subcapital fracture left hip Post-Operative Diagnosis same Operative Report Date of Procedure: Jul 12, 2021 Name of Procedure Performed: Cemented bipolar hemiarthroplasty left hip #3 Cemented stem, 5 mm neck, 46/28 mm bipolar head Description & Findings The patient was seen in the preoperative area and the left leg was marked. The patient and/or family had no questions or concerns. Patient was taken to the operating room in her hospital bed and placed on the OR table after administration of general anesthesia. She was then placed in the lateral decubitus position with the left side up on the pegboard. She was secured with pegboard posterior and anterior. A U drape was placed between the legs. The le ft leg and hip were then prepped and draped in usual sterile manner. The patient was given 2 g Ancef IV. She had no reaction. Incision was made from the tip of the greater trochanter posterior and proximal. Also distal in line with the femoral shaft. This is taken down through subtenons tissue. Bleeders are cauterized. The iliotibial band and gluteal fascia were split in line with the skin incision and retracted with the Charnley retractor. The leg was then internally rotated and flexed and the external rotators were identified. The piriformis was tagged and the external rotators with the piriformis was released from the posterior aspect of the greater trochanter. The capsule was intact and this was teed. The head was then removed with a corkscrew and measured at 46 mm. Ligamentum teres was removed. The head was trialed and a 46 mm head was found to fit well. This point the proximal femur was prepared. The neck was cut down to approximately 10 to 12 mm above the lesser trochanter. The canal wa s opened with a box osteotome and then T handle reamers then broaches up to a #3 broach. This was found to fit well. The head was then placed on the broach and reduced and there is noted to be full motion. No pistoning was noted.Good stability on internal and external rotation.TheAt this point the hip was dislocated and the trials were removed. A cement plug was placed approximately 1.5 cm distal to the tip of the stem. Canal was irrigated and suction. Cement was mixed and inserted and pressurized proximally. Stem was then inserted and held in position and approximately 15 degrees of anteversion. Excess cement was removed. Once the cemented hardened wound was irrigated. The acetabulum showed no loose bodies or debris. The bipolar head was then placed on the neck and tapped into place. This was then reduced and again found to be stable with full extension and no pistoning. This point the wound was again irrigated with pressurized irrigation. The capsule was closed with #1 Vicryl. The capsule sut ures and suture from the piriformis were placed through drill holes and tied over the posterior aspect of the greater trochanter with hip in neutral. Wound was then again irrigated. The gluteal fascia and iliotibial band were then closed with #1 Vicryl interrupted sutures. The wound was again irrigated. The subcutaneous tissue was closed with #1 Vicryl, 0 Vicryl and then 2-0 Vicryl. The skin was then closed with jesus. Wound was dressed with antibiotic ointment, Adaptic and 4 x 4's and ABDs which were taped in position. An abduction pillow was then applied. Patient was then transferred to her hospital bed. In the supine position leg lengths were equal rotation and equal length. Equal pulses were noted. Anesthesia then inserted a fascial iliac as block. The patient was then transferred to recovery room in good condition, she tolerated the procedure well. X-rays will be obtained in recovery room. Blood prvr463 mL Replacementnone Drainsnone Complicationsnone n/a Anesthesia Type General Estimated Blood Loss 300 mL Packing none. Specimen(s) collected/removed Femoral head MEIR CUMMINGS MD Jul 12, 2021 14:38
--- NOTE | 2021-07-12 14:40 | Diagnostic Imaging Report ---
INDICATION: Left hip postoperative check. EXAMINATION: Left hip from 07/12/2021. FINDINGS: A single view of the left hip. There is a total hip arthroplasty which appears intact and well aligned. There is no evidence for loosening or fracture. Overlying subcutaneous air consistent with the recent surgery. IMPRESSION: 1. Expected postoperative findings. Dictated by: Dictated on workstation # [id number]
[2021-07-12] MEDS ORDERED: meTOprolol 5 MG/5 ML (LOPRESSOR) VIAL ONE (14:44)
[2021-07-12] MEDS ORDERED: meTOprolol 5 MG/5 ML (LOPRESSOR) VIAL IVP ONE (14:45)
[2021-07-12] MEDS ORDERED: hydrALAZINE (APESOLINE) 20 MG/ML VIAL IV ONE (14:45)
[2021-07-12] MEDS ORDERED: DICL100G13 TOP (15:20)
[2021-07-12] MEDS ORDERED: ATOR20TA66 PO (15:20)
[2021-07-12] MEDS ORDERED: PARO40TA3 PO (15:20)
[2021-07-12] MEDS ORDERED: TRZ50T PO (15:20)
[2021-07-12] MEDS ORDERED: FURO20TA4 PO (15:21)
--- NOTE | 2021-07-12 18:13 | Consultation-Cardiology ---
HPI-Cardiology Cardiology Consultation: Date of Consultation 07/12/21 Time Seen by a Provider: 17:40 Date of Admission Attending Physician Maya Lentz DO Admitting Physician Elza Vences DO Consulting Physician OSMAR JOYCE MD, MA, FACP, FACC, FSCAI, CCDS HPI: Chief Complaint: Cardiac eval prior to surgery Ms. Su is an 80 yr old female admitted to 406 from the ED following a non- syncopal fall at home resulting in a left hip fracture. She reports she tripped during the night when getting up to use the BR. No c/o CP, palpitations, syncope or near syncope. No c/o dyspnea. No c/o n/v/d. No c/o fever or chills. Family x1 is at the bedside. States she has been compliant with her medications. Review of Systems-Cardiology Review of Systems Constitutional: No chills, No fever, No lightheadedness Eyes: No vision change Ears/Nose/Throat: No epistaxis, No recent hearing loss Respiratory: As described under HPI Cardiovascular: As described under HPI Gastrointestinal: No constipation, No diarrhea, No nausea, No vomiting Genitourinary: No dysuria, No hematuria Musculoskeletal: other (right leg/hip pain) Skin: No rash on exposed areas, No ulcerations on exposed areas Psychiatric/Neurological: No anxiety, No depression, No focal weakness, No syncope Hematologic: No bleeding abnormalities TXF-[id number]-[id number] Hx Patient Social History Smoking Status: Former Smoker 2nd Hand Smoke Exposure: Yes Have you traveled recently?: No Alcohol Use?: No Pt feels they are or have been: No Tobacco type used: Cigarettes Immunizations Up To Date Tetanus Booster (TDap): Less than 5yrs Date of Pneumonia Vaccine: Mar 23, 2016 Date of Influenza Vaccine: Apr 22, 2020 Past Medical History PMH As described under Assessment. Family Medical History Family Medical History: No reported family h/o CAD. Allergies and Home Medications Allergies Coded Allergies: cortisone (Verified Allergy, Unknown, 01/30/07) diphenhydramine (Verified Allergy, Unknown, 01/30/07) penicillin G (Verified Allergy, Unknown, 07/12/21) The patient is unaware that she has a penicillin allergy. She does not remember ever taking it and if she did what the reaction was. It has not been recently. Patient Home Medication List Home Medication List Reviewed: Yes Aspirin (Aspirin EC) 81 Mg Tablet.dr, 81 MG PO DAILY, (Reported) Entered as Reported by: ELZA AGUILAR on 10/22/20 1007 Last Action: Reviewed Atorvastatin Calcium (Atorvastatin Calcium) 20 Mg Tablet, 20 MG PO DAILY, (Reported) Entered as Reported by: ELZA AGUILAR on 07/12/211519 Last Action: Reviewed Cetirizine HCl (Cetirizine HCl) 10 Mg Tablet, 10 MG PO DAILY, (Reported) Entered as Reported by: JULIETH MAYA on 09/27/16838 Last Action: Reviewed Furosemide (Furosemide) 20 Mg Tablet, 20 MG PO DAILY, (Reported) Entered as Reported by: ELZA AGUILAR on 07/12/211520 Last Action: Reviewed Lisinopril (Lisinopril) 40 Mg Tablet, 40 MG PO DAILY, (Reported) Entered as Reported by: ELZA AGUILAR on 10/22/201006 Last Action: Reviewed Metoclopramide HCl (Metoclopramide HCl) 10 Mg Tablet, 10 MG PO BID, (Reported) Entered as Reported by: JULIETH MAYA on 09/27/16838 Last Action: Reviewed Metoprolol Succinate (Metoprolol Succinate) 50 Mg Tab.er.24h, 50 MG PO DAILY, (Reported) Entered as Reported by: JULIETH MAYA on 09/27/16838 Last Action: Reviewed Montelukast Sodium (Montelukast Sodium) 10 Mg Tablet, 10 MG PO HS, (Reported) Entered as Reported by: ELZA AGUILAR on 10/22/201006 Last Action: Reviewed Paroxetine HCl (Paroxetine HCl) 40 Mg Tablet, 40 MG PO HS, (Reported) Entered as Reported by: ELZA AGUILAR on 07/12/211519 Last Action: Reviewed Trazodone HCl (Trazodone HCl) 50 Mg Tablet, 50 MG PO HS PRN for SLEEP, (Reported) Entered as Reported by: ELZA AGUILAR on 07/12/211519 Last Action: Reviewed Discontinued Medications Atorvastatin Calcium (Atorvastatin Calcium) 10 Mg Tablet, 10 MG PO DAILY, (Reported) Discontinued Reason: Duplicate Order Entered as Reported by: ELZA AGUILAR on 10/22/20 1007 Last Action: Discontinued Fluticasone Propionate (Flovent Hfa 110 mcg) 1 Ea Aero, 1 EA IH BID PRN for SHORTNESS OF BREATH, (Reported) Discontinued Reason: No Longer Taking Entered as Reported by: ELZA AGUILAR on 10/22/201006 Last Action: Discontinued Furosemide (Furosemide) 20 Mg Tablet, 20 MG PO BID@,17 Discontinued Reason: No Longer Taking Prescribed by: MAYA LENTZ on 10/25/20942 Last Action: Discontinued Hydrocodone/Acetaminophen (Hydrocodone-Acetamin 5-325 mg) 1 Each Tablet, 1 EA PO BID PRN for PAIN-MODERATE (5-7), (Reported) Discontinued Reason: No Longer Taking Entered as Reported by: ELZA AGUILAR on 10/22/201006 Last Action: Discontinued Methocarbamol (Methocarbamol) 750 Mg Tablet, 750 MG PO DAILY, (Reported) Discontinued Reason: No Longer Taking Entered as Reported by: KARIN CHEEK on 11/18/20 1200 Last Action: Discontinued Omeprazole (Omeprazole) 20 Mg Tab.rap.dr, 20 MG PO DAILY, (Reported) Discontinued Reason: No Longer Taking Entered as Reported by: KARIN CHEEK on 11/18/201199 Last Action: Discontinued Pantoprazole Sodium (Pantoprazole Sodium) 40 Mg Tablet.dr, 40 MG PO DAILY Discontinued Reason: No Longer Taking Prescribed by: MAYA LENTZ on 10/25/20942 Last Action: Discontinued Paroxetine HCl (Paroxetine HCl) 20 Mg Tablet, 20 MG PO DAILY, (Reported) Discontinued Reason: Duplicate Order Entered as Reported by: JULIETH MAYA on 09/27/16 0839 Last Action: Discontinued Tizanidine HCl (Tizanidine HCl) 2 Mg Capsule, 2 MG PO DAILY, (Reported) Discontinued Reason: No Longer Taking Entered as Reported by: KARIN CHEEK on 11/18/201199 Last Action: Discontinued Triamcinolone Acet (Triamcinolone Acetonide 0.1% Cream) 15 Gm Cr, 0 GM TOP BID PRN for ITCHING AND RASH Discontinued Reason: No Longer Taking Prescribed by: MAYA LENTZ on 10/25/20942 Last Action: Discontinued Physical Exam-Cardiology Physical Exam Vital Signs/I&O 07/12/21 07/12/21 07/12/21 07/12/21 07:27 07:31 08:00 11:57 Temp 35.9 Pulse 75 78 Resp 99 20 B/P (MAP) 167/75 191/86 (121) Pulse Ox 98 99 96 O2 Delivery Nasal Cannula Nasal Cannula Room Air Nasal Cannula O2 Flow Rate 3.00 2.00 2.00 07/12/21 07/12/21 07/12/21 07/12/21 12:00 14:12 14:12 14:20 Temp 36.5 Resp 16 B/P (MAP) 182/91 (121) Pulse Ox 93 O2 Delivery Room Air OxyMask OxyMask OxyMask O2 Flow Rate 6 6 8 07/12/21 07/12/21 07/12/21 07/12/21 14:30 14:33 14:40 14:45 Resp 18 18 B/P (MAP) 205/103 (137) 203/99 (133) Pulse Ox 97 97 O2 Delivery OxyMask OxyMask OxyMask OxyMask O2 Flow Rate 6 6 6 6 07/12/21 07/12/21 07/12/21 07/12/21 15:00 15:00 15:10 15:10 Temp 36.4 Resp 18 18 B/P (MAP) 177/91 (119) 175/89 (117) Pulse Ox 94 95 O2 Delivery OxyMask Nasal Cannula Nasal Cannula Nasal Cannula O2 Flow Rate 3 3 3 3 07/12/21 15:37 Temp 35.5 Pulse 70 Resp 18 B/P (MAP) 151/81 (104) Pulse Ox 91 O2 Delivery Nasal Cannula O2 Flow Rate 3.00 Capillary Refill : Less Than 3 SecondsLess Than 3 Seconds Constitutional: AAO x 3, well-developed, well-nourished HEENT: PERRL, hearing is well preserved Neck: No carotid bruit; carotid pulses are 2 + bilaterally Respiratory: No accessory muscle use, No respiratory distress; chest expansion is symmetric, chest is bilaterally symmetric, lungs clear to auscultation Cardiovascular: regular rate-rhythm; No JVD; S1 and S2 Gastrointestinal: No tender; soft Extremities: no lower extremity edema bilateral Neurologic/Psychiatric: grossly intact (moves all extremities; LLE not manipulated d/t fracture) Skin: No rash on exposed areas, No ulcerations on exposed areas Data Review Labs Laboratory Tests 07/12/21 05:30: White Blood Count 7.8, Red Blood Count 3.67L, Hemoglobin 11.0L, Hematocrit 36, Mean Corpuscular Volume 98, Mean Corpuscular Hemoglobin 30, Mean Corpuscular Hemoglobin Concent 31L, Red Cell Distribution Width 15.0H, Platelet Count 143, Mean Platelet Volume 9.9, Immature Granulocyte % (Auto) 1, Neutrophils (%) (Auto) 76H, Lymphocytes (%) (Auto) 16, Monocytes (%) (Auto) 6, Eosinophils (%) (Auto) 1, Basophils (%) (Auto) 0, Neutrophils # (Auto) 5.9, Lymphocytes # (Auto) 1.2, Monocytes # (Auto) 0.5, Eosinophils # (Auto) 0.1, Basophils # (Auto) 0.0, Immature Granulocyte # (Auto) 0.1, Prothrombin Time 14.3, INR Comment 1.1, Activated Partial Thromboplast Time 32, Sodium Level 135, Potassium Level 4.1, Chloride Level 103, Carbon Dioxide Level 23, Anion Gap 9, Blood Urea Nitrogen 24H, Creatinine 1.10, Estimat Glomerular Filtration Rate 48, BUN/Creatinine Ratio 22, Glucose Level 157H, Calcium Level 8.5, Corrected Calcium 8.8, Total Bilirubin 0.5, Aspartate Amino Transf (AST/SGOT) 61H, Alanine Aminotransferase (ALT/SGPT) 43, Alkaline Phosphatase 103, Total Protein 8.7H, Albumin 3.6 07/12/21 05:35: Urine Color YELLOW, Urine Clarity CLEAR, Urine pH 6.0, Urine Specific [place] 1.025H, Urine Protein 2+H, Urine Glucose (UA) NEGATIVE, Urine Ketones NEGATIVE, Urine Nitrite POSITIVEH, Urine Bilirubin NEGATIVE, Urine Urobilinogen 0.2, Urine Leukocyte Esterase NEGATIVE, Urine RBC (Auto) 1+H, Urine RBC 2-5H, Urine WBC 5- 10H, Urine Crystals NONE, Urine Bacteria LARGEH, Urine Casts PRESENT, Urine Hyaline Casts 2-5H, Urine Mucus NEGATIVE, Urine Culture Indicated YES Microbiology 07/12/21 Urine Culture - Preliminary, Resulted Gram Negative Caleb A/P-Cardiology Assessment/Admission Diagnosis S/P non-syncopal fall resulting in left hip fracture UTI - management per medical services Coronary artery disease - Cardiac catheterization done on September [address] hTomas showing tortuous coron maribell system with mild disease nonobstructive disease Chronic left bundle branch block Chronic systolic CHF due to nonischemic cardiomyopathy - Echocardiogram of 10-22-[address] Thomas showed LVEF 35-40%. Mild MR and AoR. PASP 35-40 mmHg - Echo on 07/12/21: LVEF 40-45%, mild conc LVH, mild AI, PASP 20-25 mmHg Nonobstructive carotid artery stenosis per carotid duplex done January [address] Thomas Tobaccoism - cessation advised Hypertension Hyperlipidemia, History of elevated liver enzymes Anxiety Discussion and Recomendations * Cardiac risk for noncardaic surgery was estimated to be intermediate. Her cardiac status has remains stable perioperativel * We recommend continuation fo previous cardiac regimen: continuation of BB, ESTRELLITA and ASA * Monitor lab * Replace electrolytes as indicated * We would like to thank Medical services for this consult Clinical Quality Measures DVT/VTE Risk/Contraindication: Contraindications-Pharm: Pt at low risk Other: OSMAR Ventura MD [facility] CCDS Jul 12, 2021 18:13
[2021-07-12] MEDS ORDERED: traZODone 50 MG (DESYREL) TAB PO PRN (20:15)
[2021-07-12] MEDS: ceFAZolin 2 GM IV Premixed 50 ML IV SCH (20:20)
[2021-07-12] MEDS: PARoxetine 20 MG (PAXIL) TAB PO SCH (22:26)
[2021-07-12] MEDS: MONTELUKAST 10 MG (SINGULAIR) TAB PO SCH (22:26)
[2021-07-12] MEDS: METOCLOPRAMIDE 10 MG (REGLAN) TAB PO SCH (22:27)
[2021-07-12] MEDS: ACETAMINOPHEN 325 MG TABLET PO PRN (22:27)
[2021-07-13] MEDS: ceFAZolin 2 GM IV Premixed 50 ML IV SCH ×2 (03:40→11:50)
[2021-07-13 04:22] VITALS: BP 110/62
[2021-07-13] MEDS: ENOXAPARIN 40 MG/0.4 ML (LOVENOX) SYR SC SCH (05:07)
[2021-07-13 06:04] LABS: BASOPHILS % (AUTO) 0 % (0-10); EOSINOPHILS # (AUTO) 0.2 10^3/uL (0.0-0.3); EOSINOPHILS % (AUTO) 2 % (0-10); HEMATOCRIT 25 % (35-52); HEMOGLOBIN 7.9 g/dL (11.5-16.0); LYMPHOCYTES % (AUTO) 24 % (12-44); MEAN CORPUSCULAR HEMOGLOBIN 31 pg (25-34); MEAN CORPUSCULAR HGB CONC 32 g/dL (32-36); MEAN CORPUSCULAR VOLUME 98 fL (80-99); MEAN PLATELET VOLUME 10.7 fL (9.0-12.2); MONOCYTES # (AUTO) 1.1 10^3/uL (0.0-1.0); MONOCYTES % (AUTO) 12 % (0-12); NEUTROPHILS # (AUTO) 5.3 10^3/uL (1.8-7.8); NEUTROPHILS % (AUTO) 62 % (42-75); PLATELET COUNT 172 10^3/uL (130-400); WHITE BLOOD COUNT 8.6 10^3/uL (4.3-11.0)
[2021-07-13 06:12] LABS: ALBUMIN 2.7 GM/DL (3.2-4.5)
[2021-07-13 06:13] LABS: POTASSIUM 4.2 MMOL/L (3.6-5.0)
[2021-07-13 06:14] LABS: CALCIUM 7.7 MG/DL (8.5-10.1)
[2021-07-13 06:15] LABS: TOTAL PROTEIN 6.5 GM/DL (6.4-8.2)
[2021-07-13 06:17] LABS: BILIRUBIN,TOTAL 0.3 MG/DL (0.1-1.0)
[2021-07-13 06:19] LABS: CREATININE SERUM 1.43 MG/DL (0.60-1.30)
--- NOTE | 2021-07-13 06:48 | Progress Note - Hospitalist ---
Subjective HPI/CC On Admission Date Seen by Provider: Jul 13, 2021 Time Seen by Provider: 09:30 CC: Left femoral neck fracture HPI: This is a [facility] patient who lives with her son and [id number] who fell on the floor and suffered a left femoral neck fracture. Pt is very frail but appears to meet criteria for repair. Benefits outweigh the medical risk in my opinion. I have checked meds and labs and I have consulted cardiology and echocardiogram will be obtained to evaluate the systolic dysfunction that was seen on prior exam. Subjective/Events-last exam Pt doing a little better Decreased urinary output and creatinine of 1.4 so increased her IV fluid from 80 to 125 ccs per hour Crackles are in the bases Hgb is 7.9 Will evaluate her for inpatient rehab Cardiology will manage the urinary output with Lasix since her EF is 40% Review of Systems General: Fatigue, Malaise Musculoskeletal: leg pain Objective Exam Vital Signs Vital Signs Date Time Temp Pulse Resp B/P (MAP) Pulse Ox O2 Delivery O2 Flow Rate FiO2 07/14/21 04:28 36.3 89 18 114/71 (85) 93 Nasal Cannula 3.00 Capillary Refill : Less Than 3 SecondsLess Than 3 Seconds General Appearance: No Apparent Distress, WD/WN, Chronically ill Respiratory: Normal Breath Sounds, Crackles (bases) Cardiovascular: Regular Rate, Rhythm Neurologic/Psychiatric: Alert, Oriented x3 Results/Procedures Lab Patient resulted labs reviewed. Assessment/Plan Assessment and Plan Assess & Plan/Chief Complaint Assessment: L hip Fracture status post uncomplicated repair by Dr. Ledesma UTI on Rocephin Systolic congestive heart failure ejection fraction 40% Hypertension Decreased urinary output Acute kidney insufficiency Plan: Pain control Increase IV fluids Supportive care Clinical Quality Measures DVT/VTE Risk/Contraindication: Contraindications-Pharm: Pt at low risk Other: or MAE LENTZ DO Jul 13, 2021 06:48
[2021-07-13] MEDS: NS IV 1000 ML 1,000 ML IV SCH ×3 (06:59→21:41)
[2021-07-13] MEDS: RT-ALBUTEROL SULF 2.5 MG/3 ML PRE-MIX VIAL INH SCH ×3 (07:56→21:31)
[2021-07-13 08:00] VITALS: BP 122/77
[2021-07-13] MEDS: LORATADINE (CLARITIN) 10 MG TAB PO SCH (08:55)
[2021-07-13] MEDS: lisINopril 20 MG (PRINIVIL) TABLET PO SCH (08:55)
[2021-07-13] MEDS: cefTRIAXone 1 GM PRE-MIX 50 ML IV SCH (08:55)
[2021-07-13] MEDS: METOCLOPRAMIDE 10 MG (REGLAN) TAB PO SCH ×2 (08:55→21:02)
[2021-07-13] MEDS: polyethylene glycoL POWDER 17 GM (MIRALAX) PACK PO SCH ×2 (08:55→21:01)
[2021-07-13] MEDS: ASPIRIN E.C. 81 MG (ECOTRIN) TAB PO SCH (08:55)
[2021-07-13] MEDS: SENNA W/DOCUSATE (SENOKOT S) TABLET PO SCH ×2 (08:55→21:02)
[2021-07-13] MEDS: meTOproloL SUCCINATE 50 MG (TOPROL XL) TAB PO SCH ×2 (08:55→11:02)
--- NOTE | 2021-07-13 08:56 | Progress Note - Ortho ---
Progress Note Subjective Date of Exam 07/13/21 Chief Complaint POD#1 Cemented bipolar hemiarthroplasty left hip HPI/Events since last exam Mrs. Su is 1 day postop cemented bipolar hemiarthroplasty left hip for displaced subcapital fracture. When I saw her she was sitting on the edge of the bed getting ready to stand and ambulate with physical therapy. She states she is having mild hip pain. No other issues. Review of Systems Reviewed and no additions or changes Allergies: Coded Allergies: cortisone (Verified Allergy, Unknown, 01/30/07) diphenhydramine (Verified Allergy, Unknown, 01/30/07) penicillin G (Verified Allergy, Unknown, 07/12/21) The patient is unaware that she has a penicillin allergy. She does not remember ever taking it and if she did what the reaction was. It has not been recently. Home Meds Reported Medications Furosemide (Furosemide) 20 Mg Tablet, 20 MG PO DAILY, TAB 07/12/21 Paroxetine HCl (Paroxetine HCl) 40 Mg Tablet, 40 MG PO HS, TAB 07/12/21 Trazodone HCl (Trazodone HCl) 50 Mg Tablet, 50 MG PO HS PRN for SLEEP, TAB 07/12/21 Atorvastatin Calcium (Atorvastatin Calcium) 20 Mg Tablet, 20 MG PO DAILY, TAB 07/12/21 Aspirin (Aspirin EC) 81 Mg Tablet.dr, 81 MG PO DAILY, TAB 10/22/20 Montelukast Sodium (Montelukast Sodium) 10 Mg Tablet, 10 MG PO HS, TAB 10/22/20 Lisinopril (Lisinopril) 40 Mg Tablet, 40 MG PO DAILY, TAB 10/22/20 Metoclopramide HCl (Metoclopramide HCl) 10 Mg Tablet, 10 MG PO BID, TAB 09/27/16 Cetirizine HCl (Cetirizine HCl) 10 Mg Tablet, 10 MG PO DAILY, TAB 09/27/16 Metoprolol Succinate (Metoprolol Succinate) 50 Mg Tab.er.24h, 50 MG PO DAILY, TAB LAST FILLED 01-26-2021 #90/90 DAY SUPPLY 09/27/16 Discontinued Reported Medications Tizanidine HCl (Tizanidine HCl) 2 Mg Capsule, 2 MG PO DAILY, CAP 11/18/20 Omeprazole (Omeprazole) 20 Mg Tab.rap.dr, 20 MG PO DAILY, EA 11/18/20 Methocarbamol (Methocarbamol) 750 Mg Tablet, 750 MG PO DAILY for Back Pain, TAB 11/18/20 Fluticasone Propionate (Flovent Hfa 110 mcg) 1 Ea Aero, 1 EA IH BID PRN for SHORTNESS OF BREATH, EA 10/22/20 Atorvastatin Calcium (Atorvastatin Calcium) 10 Mg Tablet, 10 MG PO DAILY, TAB 10/22/20 Hydrocodone/Acetaminophen (Hydrocodone-Acetamin 5-325 mg) 1 Each Tablet, 1 EA PO BID PRN for PAIN-MODERATE (5-7), TAB 10/22/20 Paroxetine HCl (Paroxetine HCl) 20 Mg Tablet, 20 MG PO DAILY, TAB 09/27/16 Discontinued Scripts Triamcinolone Acet (Triamcinolone Acetonide 0.1% Cream) 15 Gm Cr, 0 GM TOP BID PRN for ITCHING AND RASH, #1 TUBE Prov:MAE LENTZ DO 10/25/20 Pantoprazole Sodium (Pantoprazole Sodium) 40 Mg Tablet.dr, 40 MG PO DAILY, #30 TAB Prov:MAE LENTZ DO 10/25/20 Furosemide (Furosemide) 20 Mg Tablet, 20 MG PO BID@, #60 TAB Prov:MAE LENTZ DO 10/25/20 Objective Exam Constitutional: [] HEENT: [] Neck: [] Cardiovascular: [] Respiratory: [] Gastrointestinal: [] Genitourinary: [] Skin: [] Back/Spine: [] Extremities: []Her dressing is intact. No swelling is noted. No calf tenderness and negative Homans. She states she has normal sensation to the foot and toes. Equal pulses. She is able to dorsiflex and plantarflex foot and ankle without pain or weakness. Leg is in equal position to the left Neurologic: [] Psychiatric: [] Hematologic/lymphatic/immunologic: [] Vital Signs Vital Signs Date Time Temp Pulse Resp B/P (MAP) Pulse Ox O2 Delivery O2 Flow Rate FiO2 07/13/21 08:00 36.5 85 18 122/77 (92) 96 Nasal Cannula 3.00 07/13/21 07:56 93 Nasal Cannula 3.00 07/13/21 04:22 36.5 81 18 110/62 (78) 95 Nasal Cannula 3.00 07/12/21 23:28 36.8 86 18 114/65 (81) 94 Nasal Cannula 3.00 07/12/21 20:46 Nasal Cannula 2.00 07/12/21 20:22 35.9 80 18 108/71 (83) 97 Nasal Cannula 3.00 07/12/21 18:24 95 Nasal Cannula 4.00 07/12/21 15:37 35.5 70 18 151/81 (104) 91 Nasal Cannula 3.00 07/12/21 15:10 36.4 18 175/89 (117) 95 Nasal Cannula 3 07/12/21 15:10 Nasal Cannula 3 07/12/21 15:00 18 177/91 (119) 94 Nasal Cannula 3 07/12/21 15:00 OxyMask 3 07/12/21 14:45 OxyMask 6 07/12/21 14:40 18 203/99 (133) 97 OxyMask 6 07/12/21 14:33 18 205/103 (137) 97 OxyMask 6 07/12/21 14:30 OxyMask 6 07/12/21 14:20 OxyMask 8 07/12/21 14:12 36.5 16 182/91 (121) 93 OxyMask 6 07/12/21 14:12 OxyMask 6 07/12/21 12:00 Room Air 07/12/21 11:57 Nasal Cannula 2.00 I & O 07/13/21 07:00 Intake Total 1660 ml Output Total 2500 ml Balance -840 ml Lab Results Laboratory Tests 07/13/21 05:15: White Blood Count 8.6, Red Blood Count 2.56L, Hemoglobin 7.9#L, Hematocrit 25L, Mean Corpuscular Volume 98, Mean Corpuscular Hemoglobin 31, Mean Corpuscular Hemoglobin Concent 32, Red Cell Distribution Width 15.6H, Platelet Count 172, Mean Platelet Volume 10.7, Immature Granulocyte % (Auto) 0, Neutrophils (%) (Auto) 62, Lymphocytes (%) (Auto) 24, Monocytes (%) (Auto) 12, Eosinophils (%) (Auto) 2, Basophils (%) (Auto) 0, Neutrophils # (Auto) 5.3, Lymphocytes # (Auto) 2.0, Monocytes # (Auto) 1.1H, Eosinophils # (Auto) 0.2, Basophils # (Auto) 0.0, Immature Granulocyte # (Auto) 0.0, Sodium Level 136, Potassium Level 4.2, Chloride Level 105, Carbon Dioxide Level 22, Anion Gap 9, Blood Urea Nitrogen 25H, Creatinine 1.43H, Estimat Glomerular Filtration Rate 35, BUN/Creatinine Ratio 17, Glucose Level 127H, Calcium Level 7.7L, Corrected Calcium 8.7, Total Bilirubin 0.3, Aspartate Amino Transf (AST/SGOT) 38H, Alanine Aminotransferase (ALT/SGPT) 23, Alkaline Phosphatase 76, Total Protein 6.5, Albumin 2.7L Microbiology 07/12/21 Urine Culture - Preliminary, Resulted Gram Negative Caleb Assessment and Plan Assessment Doing well first day postop Problem List Unchanged Plan Continue with physical therapy walker ambulation. Dressing change tomorrow.Repeat hemoglobin tomorrow as today's hemoglobin is 7.9 Final Diagonsis Displaced subcapital fracture left hip status post cemented bipolar hemiarthroplasty Level of the visit: Level 3 Clinical Quality Measures DVT/VTE Risk/Contraindication: Contraindications-Pharm: Pt at low risk Other: or MEIR CUMMINGS MD Jul 13, 2021 08:55
--- NOTE | 2021-07-13 09:01 | Physical Therapy Evaluation ---
PT Evaluation-General Medical Diagnosis Admission Date Jul 12, 2021 at 07:10 Medical Diagnosis: left MENDY Onset Date: Jul 12, 2021 Therapy Diagnosis Therapy Diagnosis: impaired mobility, strength, endurance Height/Weight Height (Feet): 5 Height (Inches): 4.00 Weight (Pounds): 188 Weight (Ounces): 0.0 Precautions Precautions/Isolations: Fall Prevention, Standard Precautions Weight Bear Status Right Lower Extremity: Right Full Weight Bearing Left Lower Extremity: Left Weight Bearing/Tolerated Referral Physician: Callie Reason for Referral: Evaluation/Treatment Medical History Pertinent Medical History: COPD, HTN Additional Medical History Past Medical History Surgeries: Section, Gallbladder, Hysterectomy, Oophorectomy, Orthopedic, Tonsillectomy Asthma, COPD High Cholesterol, Hypertension Sexually Transmitted Disease: No UTI-Chronic Gastroesophageal Reflux Arthritis Blood Disorders: Yes (ANEMIA) Adverse Reaction/Blood Tranf: No PMHx: HTN CHF SurgHx: Cholecystectomy C section Hysterectomy Breast biopsy Reviewed History: Yes Social History Home: Single Level Current Living Status: Children Entry Into Home: Stairs With Railing PT Steps Into Home: 2 Prior Prior Level of Function SCALE: Activities may be completed with or without assistive devices. 3-Umfvyimvbe-wuifjyh completes the activity by him/herself with no assistance from a helper. 5-Set-up or Clean-up Assistance-helper sets up or cleans up; patient completes activity. Potter assists only prior to or following the activity. 4-Supervision or Touching Assistance-helper provides verbal cues and/or touching/steadying and/or contact guard assistance as patient completes activity. Assistance may be provided throughout the activity or intermittently. 3-Partial/Moderate Assistance-helper does LESS THAN HALF the effort. Potter lifts, holds or supports trunk or limbs, but provides less than half the effort. 2-Substantial/Maximal Assistance-helper does MORE THAN HALF the effort. Potter lifts or holds trunk or limbs and provides more than half the effort. 6-Yhexzfrtn-wjinbh does ALL the effort. Patient does none of the effort to complete the activity. Or, the assistance of 2 or more helpers is required for the patient to complete the activity. If activity was not attempted, code reason: 7-Patient Refused. 9-Not Applicable-not attempted and the patient did not perform the activity bef ore the current illness, exacerbation or injury. 10-Not Attempted due to Environmental Limitations-(lack of equipment, weather r estraints, etc.). 88-Not Attempted due to Medical Conditions or Safety Concerns. Bed Mobility: 6 Transfers (B,C,W/C): 6 Gait: 6 Stairs: 6 Indoor Mobility (Ambulation): Independent Stairs: Independent PT Evaluation-Current Subjective Patient in bed pre tx, agrees to PT, has 8/10 pain in left hip. Pt/Family Goals to be independent at home Objective Patient Orientation: Person, Place, Situation Attachments: Oxygen, Tucker Catheter, IV Sensory Hearing: Functional Sensation Right Lower Extremit: Intact Sensation Left Lower Extremity: Intact Transfers Roll Left to Right (QC): 3 Lying to Sitting/Side of Bed(Q: 3 Sit to Stand (QC): 3 Chair/Mge-mh-Pzcjq Xfer(QC): 3 Mod assist for supine to sit, min assist for sit to stand, patient can take a few short steps forward but has a lot of trouble turning to sit in the recliner, the recliner has to be brought up to her and she needs a lot of verbal and tactile cues to turn and get into position. Patient doesn't bear much weight on her left leg but is able to bear weight through her arms and take several steps with her right leg. Balance Sitting Static: Normal Sitting Dynamic: Normal Standing Static: Poor Standing Dynamic: Poor Treatment BLE seated exercises x20 (AP, LAQ), PROM with the ankle pumps on the left side, she has dropfoot at this time. Assessment/Needs Patient in recliner post tx with nurse call, phone, tray, all needs met. Patient has impaired mobility, strength, endurance. Needs a lot of assist for transfers. Rehab Potential: Fair PT Usp Goals Usp Goals PT [employer] Goals Time Frame: Jul 20, 2021 Roll Left & Right (QC): 6 Sit to Lying (QC): 4 Lying-Sitting on Side/Bed(QC): 4 Sit to Stand (QC): 4 Chair/Joa-uy-Jzijk Xfer(QC): 4 Walk 10 feet (QC): 4 Walk 50ft with 2 Turns (QC): 4 PT Plan Problem List Problem List: Activity Tolerance, Functional Strength, Safety, Balance, Gait, Transfer, Bed Mobility, ROM Treatment/Plan Treatment Plan: Continue Plan of Care Treatment Plan: Bed Mobility, Education, Functional Activity Josh, Functional Strength, Gait, Safety, Therapeutic Exercise, Transfers Treatment Duration: Jul 20, 2021 Frequency: 11 times per week Estimated Hrs Per Day: .25 hour per day Patient and/or Family Agrees t: Yes Safety Risks/Education Patient Education: Gait Training, Transfer Techniques, Reviewed Precautions, Correct Positioning, Safety Issues Teaching Recipient: Patient Teaching Methods: Demonstration, Discussion Response to Teaching: Reinforcement Needed Discharge Recommendations Plan Patient will perform bed mobility and transfer training, balance and endurance training, functional strengthening, stair training, gait training, and education, to improve functional mobility and independence at home. Therapy Discharge Recommendati: Scheduled Assistance, Home & Family, Post Acute PT Time/GCodes Time In: 826 Time Out: 843 Total Billed Treatment Time: 17 Total Billed Treatment 1 visit YUE HUNTER PT Jul 13, 2021 09:01
--- NOTE | 2021-07-13 09:12 | Anesthesia-General Post-Op ---
General Patient Condition Mental Status/LOC: Same as Preop Cardiovascular: Satisfactory Nausea/Vomiting: Absent Respiratory: Satisfactory Pain: Controlled Complications: Absent Post Op Complications Complications None Follow Up Care/Instructions Patient Instructions None needed. Anesthesia/Patient Condition Patient Condition Patient is doing well, no complaints, stable vital signs, no apparent adverse anesthesia problems. No complications reported per nursing. AYUSH RIDER CRNA Jul 13, 2021 09:12
--- NOTE | 2021-07-13 09:20 | Occupational Therapy Eval ---
OT Evaluation-General/PLF Medical Diagnosis Admission Date Jul 12, 2021 at 07:10 Medical Diagnosis: left MENDY Onset Date: Jul 12, 2021 Therapy Diagnosis Therapy Diagnosis: Impaired adls, balance, endurance, safety Height/Weight Height (Feet): 5 Height (Inches): 4.00 Weight (Pounds): 188 Weight (Ounces): 0.0 Precautions Precautions/Isolations: Fall Prevention, Standard Precautions Weight Bear Status Weight Bearing Restriction: Weight Bearing/Tolerated Location Restriction: L LE Referral Physician: Callie Referral Reason: Evaluation/Treatment Medical History Pertinent Medical History: COPD, HTN Additional Medical History CHF Current History Pt reports to ER following a fall. Found to have displaced subcapital fx LLE and a UTI. Pt is now WBAT. She reports living in a single story home with her granddaughter. She was indep with all adls and her granddaughter manages all iadl responsibilities. 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 Social History Home: Single Level Current Living Status: Children Entry Into Home: Stairs With Railing Steps Into Home: 2 ADL-Prior Level of Function SCALE: Activities may be completed with or without assistive devices. 3-Zvpnssqyrw-mzspell completes the activity by him/herself with no assistance from a helper. 5-Set-up or Clean-up Assistance-helper sets up or cleans up; patient completes activity. [place] assists only prior to or following the activity. 4-Supervision or Touching Assistance-helper provides verbal cues and/or to uching/steadying and/or contact guard assistance as patient completes activity. Assistance may be provided throughout the activity or intermittently. 3-Partial/Moderate Assistance-helper does LESS THAN HALF the effort. [place] lifts, holds or supports trunk or limbs, but provides less than half the effort. 2-Substantial/Maximal Assistance-helper does MORE THAN HALF the effort. [place] lifts or holds trunk or limbs and provides more than half the effort. 3-Cqqxhvdut-mrnzbi does ALL the effort. Patient does none of the effort to complete the activity. Or, the assistance of 2 or more helpers is required for the patient to complete the activity. If activity was not attempted, code reason: 7-Patient Refused. 9-Not Applicable-not attempted and the patient did not perform the activity before the current illness, exacerbation or injury. 10-Not Attempted due to Environmental Limitations-(lack of equipment, weather restraints, etc.). 88-Not Attempted due to Medical Conditions or Safety Concerns. Self Care: Independent Functional Cognition: Unknown DME/Equipment: Bath Chair, Grab Bars, Tub/Shower Drive Self: No OT Current Status Subjective Pt reports pain as 8/10 in L hip. Agreeable to treatment. Appearance Left sitting in chair, all needs within reach, RN informed. Mental Status/Objective Patient Orientation: Person, Situation Attachments: Tucker Catheter, IV, Oxygen Current Hearing Aids: No Hand Dominance: Right Upper Extremity ROM ~70 degrees Active shoulder ROM. ~120 degrees PROM. Elbow-distally: WNL Upper Extremity Strength Impaired, debility ADL-Treatment Eating (QC): 5 Lower Body Dressing (QC): 1 On/Off Footwear (QC): 1 Toileting Hygiene (QC): 1 Supine>sit: Mod-max a for transitioning LLE and elevating trunk. Dependent to don LB clothing over feet. Pt will need instruction on use of AE in order to adhere to hip precautions. Sit<>stand: Min A. Heavy reliance on UE's to maintain balance. Pt unable to remove hand from walker, and thus would be dependent for clothing management at this time. Poor weight bearing through LLE in standing. Requires step by step cues to transition feet when turning to sit in recliner. Pt often freezes and requires physical assist to transition leg/walker. Pt only able to tolerate 1-2 steps before needing chair to be placed behind her. Education OT Patient Education: Correct positioning, Disease process, Energy conservation, Modified ADL techniques, Progress toward Goal/Update tx plan, Purpose of tx/functional activities, Reviewed precautions, Rehab process, Safety issues, Transfer techniques Teaching Recipient: Patient Teaching Methods: Discussion Response to Teaching: Reinforcement Needed OT Long-Term Goals Long-Term Goals Time Frame: Jul 27, 2021 Oral Hygiene (QC): 5 Toileting Hygiene (QC): 4 Shower/Bathe Self (QC): 4 Upper Body Dressing (QC): 5 Lower Body Dressing (QC): 4 On/Off Footwear (QC): 4 1=Demonstrate adherence to instructed precautions during ADL tasks. 2=Patient will verbalize/demonstrate understanding of assistive devices/modifications for ADL. 3=Patient will improve strength/tolerance for activity to enable patient to perform ADL's. OT Education/Plan Problem List/Assessment Assessment: Decreased Activ Tolerance, Decreased Safety Aware, Decreased UE Strength, Impaired Bed Mobility, Impaired Cognition, Impaired Funct Balance, Impaired Self-Care Skills, Restricted Funct UE ROM Discharge Recommendations Plan/Recommendations: Continue POC Therapy Discharge Recommendati: Post Acute OT Equpiment Recommendations-D/C: Rails on Tub/Shower, Toilet Riser with Rails, Window Tinter, Hip Kit, Sock Aide Treatment Plan/Plan of Care Treatment,Training & Education: Yes Patient would benefit from OT for education, treatment and training to promote independence in ADL's, mobility, safety and/or upper extremity function for ADL's. Plan of Care: ADL Retraining, Functional Mobility, UE Funct Exercise/Act, W/C Management Training Treatment Duration: Jul 27, 2021 Frequency: 3 times per week Estimated Hrs Per Day: .25 hour per day Rehab Potential: Fair 3-5x/week Time/GCodes Start Time: 08:29 Stop Time: 08:45 Total Time Billed (hr/min): 16 Billed Treatment Time 1 visit Kathia Coleman OT Jul 13, 2021 09:20
[2021-07-13] MEDS: ACETAMINOPHEN 325 MG TABLET PO PRN ×3 (10:42→21:02)
[2021-07-13 12:00] VITALS: BP 106/61
--- NOTE | 2021-07-13 13:07 | Physical Therapy Daily Note ---
PT Daily Note-Current Subjective Patient in recliner pre tx, has no complaints of pain, would like to get back to the bed. Appearance Patient in bed post tx with nurse call, phone, tray, SCD's, abduction pillow on. Mental Status Patient Orientation: Person, Place, Situation Attachments: Oxygen, Tucker Catheter, IV Transfers SCALE: Activities may be completed with or without assistive devices. 9-Mvynrjkrwz-tvxvbqz completes the activity by him/herself with no assistance from a helper. 5-Set-up or Clean-up Assistance-helper sets up or cleans up; patient completes activity. [place] assists only prior to or following the activity. 4-Supervision or Touching Assistance-helper provides verbal cues and/or touching/steadying and/or contact guard assistance as patient completes activity. Assistance may be provided throughout the activity or intermittently. 3-Partial/Moderate Assistance-helper does LESS THAN HALF the effort. [place] lifts, holds or supports trunk or limbs, but provides less than half the effort. 2-Substantial/Maximal Assistance-helper does MORE THAN HALF the effort. [place] lifts or holds trunk or limbs and provides more than half the effort. 8-Vfkqjlkcl-nrirbo does ALL the effort. Patient does none of the effort to complete the activity. Or, the assistance of 2 or more helpers is required for the patient to complete the activity. If activity was not attempted, code reason: 7-Patient Refused. 9-Not Applicable-not attempted and the patient did not perform the activity before the current illness, exacerbation or injury. 10-Not Attempted due to Environmental Limitations-(lack of equipment, weather restraints, etc.). 88-Not Attempted due to Medical Conditions or Safety Concerns. Sit to Lying (QC): 1 Sit to Stand (QC): 3 Chair/Ila-js-Qeydq Xfer(QC): 2 Patient stands from the recliner with min/mod assist, starts taking a couple of steps to the bed and then "freezes". She can still talk but doesn't seem to be able to move any more, she says she doesn't know what is wrong. The recliner is brought back up to her and she sits and then does a stand pivot transfers with max assist to the bed, lays down with assist of 2. Weight Bearing Right Lower Extremity: Right Full Weight Bearing Left Lower Extremity: Left Weight Bearing/Tolerated Treatments standing, stepping, bed mobility, transfers Assessment Current Status: Poor Progress Patient has trouble taking more than a couple of steps PT Mcc Goals Mcc Goals PT Mcc Goals Time Frame: Jul 20, 2021 Roll Left & Right (QC): 6 Sit to Lying (QC): 4 Lying-Sitting on Side/Bed(QC): 4 Sit to Stand (QC): 4 Chair/Zmf-ja-Kkvgn Xfer(QC): 4 Walk 10 feet (QC): 4 Walk 50ft with 2 Turns (QC): 4 PT Plan Problem List Problem List: Activity Tolerance, Functional Strength, Safety, Balance, Gait, Transfer, Bed Mobility, ROM Treatment/Plan Treatment Plan: Continue Plan of Care Treatment Plan: Bed Mobility, Education, Functional Activity Josh, Functional Strength, Gait, Safety, Therapeutic Exercise, Transfers Treatment Duration: Jul 20, 2021 Frequency: 11 times per week Estimated Hrs Per Day: .25 hour per day Patient and/or Family Agrees t: Yes Safety Risks/Education Patient Education: Transfer Techniques, Correct Positioning, Safety Issues Teaching Recipient: Patient Teaching Methods: Demonstration, Discussion Response to Teaching: Reinforcement Needed Time/GCodes Time In: 1245 Time Out: 1258 Total Billed Treatment Time: 13 Total Billed Treatment 1 visit FA YUE METZ PT Jul 13, 2021 13:07
[2021-07-13 16:00] VITALS: BP 125/78
[2021-07-13] MEDS ORDERED: FUROSEMIDE 40 MG/4 ML INJ (LASIX) IVP NR (16:30)
--- NOTE | 2021-07-13 19:16 | Cardiology Progress Note ---
Progress Note-Cardiology Events since last exam Date Seen by Provider: Jul 13, 2021 Time Seen by Provider: 19:11 Events since last exam We are following her due to chronic heart failure with reduced ejection frac tion. She underwent hip surgery on 07/12. She is resting comfortably in bed. She denies chest discomfort, dyspnea, palpitations, syncope, or ankle edema. Certain portions of this document may have been dictated utilizing voice recognition technology. Inherent to this technology, typographical and grammatical errors may exist. As much as I am diligent to identify and correct these mistakes, some errors may remain in the document. Vitals Last set of Vitals Signs Vital Signs 07/13/21 16:00 Temp 36.1 Pulse 90 Resp 20 B/P (MAP) 125/78 (94) Pulse Ox 92 O2 Delivery Nasal Cannula O2 Flow Rate 3.00 Labs Labs Laboratory Tests 07/13/21 05:15 Exam Vital Signs Vital Signs Date Time Temp Pulse Resp B/P (MAP) Pulse Ox O2 Delivery O2 Flow Rate FiO2 07/13/21 16:00 36.1 90 20 125/78 (94) 92 Nasal Cannula 3.00 Physical Exam General: Alert. No acute distress. She is obese. Eye: No xanthelasma. HENT: Normocephalic. Neck: Jugular venous pressure does not appear elevated. Respiratory: Lungs are clear to auscultation. Respirations are non-labored. Breath sounds are equal. Symmetrical chest wall expansion. Cardiovascular: Normal rate. Regular rhythm. No murmur. No gallop. No edema. Gastrointestinal: Soft. Normal bowel sounds. Skin: Warm. Dry. Neurologic: Alert and oriented to person, place, time. Cranial nerves 3-11 gr ossly intact. Psychiatric: Cooperative. Appropriate mood & affect. Labs Laboratory Tests Test 07/13/21 05:15 Range/Units White Blood Count 8.6 4.3-11.0 10^3/uL Red Blood Count 2.56 L 3.80-5.11 10^6/uL Hemoglobin 7.9 #L 11.5-16.0 g/dL Hematocrit 25 L 35-52 % Mean Corpuscular Volume 98 80-99 fL Mean Corpuscular Hemoglobin 31 25-34 pg Mean Corpuscular Hemoglobin Concent 32 32-36 g/dL Red Cell Distribution Width 15.6 H 10.0-14.5 % Platelet Count 172 130-400 10^3/uL Mean Platelet Volume 10.7 9.0-12.2 fL Immature Granulocyte % (Auto) 0 % Neutrophils (%) (Auto) 62 42-75 % Lymphocytes (%) (Auto) 24 12-44 % Monocytes (%) (Auto) 12 0-12 % Eosinophils (%) (Auto) 2 0-10 % Basophils (%) (Auto) 0 0-10 % Neutrophils # (Auto) 5.3 1.8-7.8 10^3/uL Lymphocytes # (Auto) 2.0 1.0-4.0 10^3/uL Monocytes # (Auto) 1.1 H 0.0-1.0 10^3/uL Eosinophils # (Auto) 0.2 0.0-0.3 10^3/uL Basophils # (Auto) 0.0 0.0-0.1 10^3/uL Immature Granulocyte # (Auto) 0.0 0.0-0.1 10^3/uL Sodium Level 136 135-145 MMOL/L Potassium Level 4.2 3.6-5.0 MMOL/L Chloride Level 105 98-107 MMOL/L Carbon Dioxide Level 22 21-32 MMOL/L Anion Gap 9 5-14 MMOL/L Blood Urea Nitrogen 25 H 7-18 MG/DL Creatinine 1.43 H 0.60-1.30 MG/DL Estimat Glomerular Filtration Rate 35 BUN/Creatinine Ratio 17 Glucose Level 127 H 70-105 MG/DL Calcium Level 7.7 L 8.5-10.1 MG/DL Corrected Calcium 8.7 8.5-10.1 MG/DL Total Bilirubin 0.3 0.1-1.0 MG/DL Aspartate Amino Transf (AST/SGOT) 38 H 5-34 U/L Alanine Aminotransferase (ALT/SGPT) 23 0-55 U/L Alkaline Phosphatase 76 40-136 U/L Total Protein 6.5 6.4-8.2 GM/DL Albumin 2.7 L 3.2-4.5 GM/DL Diagnosis/Problems Diagnosis/Problems (1) Chronic systolic heart failure Assessment & Plan: She appears to be reasonably compensated at this point in time. She has been getting some intravenous fluids ordered earlier today. I would be cautious with over hydrating the patient or she may develop volume overload. (2) Cardiomyopathy Assessment & Plan: She had mild left ventricular systolic dysfunction on her most recent echocardiogram. She is on metoprolol succinate and lisinopril which should be continued. (3) Coronary artery disease without angina pectoris Assessment & Plan: She has a history of coronary artery disease but is not having any angina at the present time. We will continue aspirin and beta- amy. I will resume her atorvastatin which she was taking at home. (4) Primary hypertension Assessment & Plan: Blood pressures are well controlled with her outpatient antihypertensive medication. (5) Mixed hyperlipidemia Assessment & Plan: Atorvastatin has been resumed. Lipid panel has been added to previous blood sample. SHARATH JORDAN JR, MD Jul 13, 2021 19:16
[2021-07-13 19:29] LABS: TRIGLYCERIDES 160 MG/DL (<150); VLDL CHOLESTEROL 32 MG/DL (5-40)
[2021-07-13 19:34] LABS: CHOLESTEROL 113 MG/DL (< 200); HDL CHOLESTEROL 19 MG/DL (40-60)
[2021-07-13 19:44] VITALS: BP 106/66
[2021-07-13] MEDS: MONTELUKAST 10 MG (SINGULAIR) TAB PO SCH (21:01)
[2021-07-13] MEDS: PARoxetine 20 MG (PAXIL) TAB PO SCH (21:01)
[2021-07-13 23:30] VITALS: BP 109/63
[2021-07-14] VITALS (13 sets, daily range): BP systolic 98–154; BP diastolic 55–85
[2021-07-14] MEDS: ENOXAPARIN 40 MG/0.4 ML (LOVENOX) SYR SC SCH (05:18)
[2021-07-14] MEDS: NS IV 1000 ML 1,000 ML IV SCH (05:25)
[2021-07-14 06:33] LABS: BASOPHILS % (AUTO) 0 % (0-10); EOSINOPHILS # (AUTO) 0.1 10^3/uL (0.0-0.3); EOSINOPHILS % (AUTO) 2 % (0-10); HEMATOCRIT 21 % (35-52); LYMPHOCYTES % (AUTO) 20 % (12-44); MEAN CORPUSCULAR HEMOGLOBIN 30 pg (25-34); MEAN CORPUSCULAR HGB CONC 31 g/dL (32-36); MEAN CORPUSCULAR VOLUME 99 fL (80-99); MEAN PLATELET VOLUME 10.9 fL (9.0-12.2); MONOCYTES # (AUTO) 0.5 10^3/uL (0.0-1.0); MONOCYTES % (AUTO) 11 % (0-12); NEUTROPHILS # (AUTO) 3.2 10^3/uL (1.8-7.8); NEUTROPHILS % (AUTO) 66 % (42-75); PLATELET COUNT 102 10^3/uL (130-400); WHITE BLOOD COUNT 4.8 10^3/uL (4.3-11.0)
[2021-07-14 06:36] LABS: HEMOGLOBIN 6.3 g/dL (11.5-16.0)
[2021-07-14] MEDS ORDERED: NS IV 500 ML 500 ML IV SCH (06:45)
[2021-07-14 06:52] LABS: ALBUMIN 2.5 GM/DL (3.2-4.5); BILIRUBIN,TOTAL 0.3 MG/DL (0.1-1.0); CALCIUM 7.9 MG/DL (8.5-10.1); CREATININE SERUM 1.28 MG/DL (0.60-1.30); POTASSIUM 4.1 MMOL/L (3.6-5.0); TOTAL PROTEIN 6.3 GM/DL (6.4-8.2)
[2021-07-14] MEDS ORDERED: FUROSEMIDE 40 MG/4 ML INJ (LASIX) IVP NR (07:00)
[2021-07-14] MEDS: RT-ALBUTEROL SULF 2.5 MG/3 ML PRE-MIX VIAL INH SCH ×3 (08:02→21:02)
[2021-07-14] MEDS: lisINopril 20 MG (PRINIVIL) TABLET PO SCH (09:00)
[2021-07-14] MEDS: meTOproloL SUCCINATE 50 MG (TOPROL XL) TAB PO SCH ×2 (09:00→09:36)
--- NOTE | 2021-07-14 09:04 | Progress Note - Ortho ---
Progress Note Subjective Date of Exam 07/14/21 Chief Complaint POD#@ Cemented bipolar hemiarthroplasty for displaced subcapital fracture left hip HPI/Events since last exam Mrs. Su is 2 days postop cemented bipolar hemiarthroplasty left hip for displaced subcapital fracture. She states she is doing well and the pain is decreasing. She still has some mild pain left hip.No other complaints. Review of Systems Reviewed and no additions or changes Allergies: Coded Allergies: cortisone (Verified Allergy, Unknown, 01/30/07) diphenhydramine (Verified Allergy, Unknown, 01/30/07) penicillin G (Verified Allergy, Unknown, 07/12/21) The patient is unaware that she has a penicillin allergy. She does not remember ever taking it and if she did what the reaction was. It has not been recently. Home Meds Reported Medications Furosemide (Furosemide) 20 Mg Tablet, 20 MG PO DAILY, TAB 07/12/21 Paroxetine HCl (Paroxetine HCl) 40 Mg Tablet, 40 MG PO HS, TAB 07/12/21 Trazodone HCl (Trazodone HCl) 50 Mg Tablet, 50 MG PO HS PRN for SLEEP, TAB 07/12/21 Atorvastatin Calcium (Atorvastatin Calcium) 20 Mg Tablet, 20 MG PO DAILY, TAB 07/12/21 Aspirin (Aspirin EC) 81 Mg Tablet.dr, 81 MG PO DAILY, TAB 10/22/20 Montelukast Sodium (Montelukast Sodium) 10 Mg Tablet, 10 MG PO HS, TAB 10/22/20 Lisinopril (Lisinopril) 40 Mg Tablet, 40 MG PO DAILY, TAB 10/22/20 Metoclopramide HCl (Metoclopramide HCl) 10 Mg Tablet, 10 MG PO BID, TAB 09/27/16 Cetirizine HCl (Cetirizine HCl) 10 Mg Tablet, 10 MG PO DAILY, TAB 09/27/16 Metoprolol Succinate (Metoprolol Succinate) 50 Mg Tab.er.24h, 50 MG PO DAILY, TAB LAST FILLED 01-26-2021 #90/90 DAY SUPPLY 09/27/16 Discontinued Reported Medications Tizanidine HCl (Tizanidine HCl) 2 Mg Capsule, 2 MG PO DAILY, CAP 11/18/20 Omeprazole (Omeprazole) 20 Mg Tab.rap.dr, 20 MG PO DAILY, EA 11/18/20 Methocarbamol (Methocarbamol) 750 Mg Tablet, 750 MG PO DAILY for Back Pain, TAB 11/18/20 Fluticasone Propionate (Flovent Hfa 110 mcg) 1 Ea Aero, 1 EA IH BID PRN for SHORTNESS OF BREATH, EA 10/22/20 Atorvastatin Calcium (Atorvastatin Calcium) 10 Mg Tablet, 10 MG PO DAILY, TAB 10/22/20 Hydrocodone/Acetaminophen (Hydrocodone-Acetamin 5-325 mg) 1 Each Tablet, 1 EA PO BID PRN for PAIN-MODERATE (5-7), TAB 10/22/20 Paroxetine HCl (Paroxetine HCl) 20 Mg Tablet, 20 MG PO DAILY, TAB 09/27/16 Discontinued Scripts Triamcinolone Acet (Triamcinolone Acetonide 0.1% Cream) 15 Gm Cr, 0 GM TOP BID PRN for ITCHING AND RASH, #1 TUBE Prov:MAE LENTZ DO 10/25/20 Pantoprazole Sodium (Pantoprazole Sodium) 40 Mg Tablet.dr, 40 MG PO DAILY, #30 TAB Prov:MAE LENTZ DO 10/25/20 Furosemide (Furosemide) 20 Mg Tablet, 20 MG PO BID@, #60 TAB Prov:MAE LENTZ DO 10/25/20 Objective Exam Constitutional: [] HEENT: [] Neck: [] Cardiovascular: [] Respiratory: [] Gastrointestinal: [] Genitourinary: [] Skin: [] Back/Spine: [] Extremities: [No calf tenderness negative Homans bilateral she is able to dorsiflex plantarflex the foot without any weakness or pain. Normal sensation of the foot and toes with good cap refill. Equal pulses. Her dressing was peeled back and there is old blood on the dressing but no active bleeding. No real swelling noted in the thigh.] Neurologic: [] Psychiatric: [] Hematologic/lymphatic/immunologic: [] Vital Signs Vital Signs Date Time Temp Pulse Resp B/P (MAP) Pulse Ox O2 Delivery O2 Flow Rate FiO2 07/14/21 08:02 93 Nasal Cannula 3.00 07/14/21 07:54 36.8 83 20 98/58 (71) 91 Nasal Cannula 3.00 07/14/21 04:28 36.3 89 18 114/71 (85) 93 Nasal Cannula 3.00 07/13/21 23:30 36.5 93 21 109/63 (78) 91 Nasal Cannula 3.00 07/13/21 21:32 95 Nasal Cannula 3.00 07/13/21 20:00 Nasal Cannula 2.00 07/13/21 19:44 36.6 88 18 106/66 (79) 94 Nasal Cannula 3.00 07/13/21 16:00 36.1 90 20 125/78 (94) 92 Nasal Cannula 3.00 07/13/21 15:01 95 Nasal Cannula 3.00 07/13/21 12:00 37.2 94 18 106/61 (76) 96 Nasal Cannula 3.00 I & O 07/14/21 07:00 Intake Total 1260 ml Output Total 810 ml Balance 450 ml Lab Results Laboratory Tests 07/14/21 05:05: White Blood Count 4.8, Red Blood Count 2.08L, Hemoglobin 6.3#*L, Hematocrit 21L, Mean Corpuscular Volume 99, Mean Corpuscular Hemoglobin 30, Mean Corpuscular Hemoglobin Concent 31L, Red Cell Distribution Width 15.8H, Platelet Count 102L, Mean Platelet Volume 10.9, Immature Granulocyte % (Auto) 0, Neutrophils (%) (Auto) 66, Lymphocytes (%) (Auto) 20, Monocytes (%) (Auto) 11, Eosinophils (%) ( Auto) 2, Basophils (%) (Auto) 0, Neutrophils # (Auto) 3.2, Lymphocytes # (Auto) 1.0, Monocytes # (Auto) 0.5, Eosinophils # (Auto) 0.1, Basophils # (Auto) 0.0, Immature Granulocyte # (Auto) 0.0, Sodium Level 136, Potassium Level 4.1, Chloride Level 109H, Carbon Dioxide Level 21, Anion Gap 6, Blood Urea Nitrogen 27H, Creatinine 1.28, Estimat Glomerular Filtration Rate 40, BUN/Creatinine Ratio 21, Glucose Level 121H, Calcium Level 7.9L, Corrected Calcium 9.1, Total Bilirubin 0.3, Aspartate Amino Transf (AST/SGOT) 30, Alanine Aminotransferase (ALT/SGPT) 11, Alkaline Phosphatase 64, B-Type Natriuretic Peptide 267.1H, Total Protein 6.3L, Albumin 2.5L Microbiology 07/12/21 MRSA Screen - Final, Complete MRSA not isolated 07/12/21 Urine Culture - Preliminary, Resulted Escherichia coli Assessment and Plan Assessment Doing well 2 days postop. Hemoglobin 6.7 and blood has been ordered. 2 units packed red blood cells. Problem List In addition to her previous problem list, acute blood loss anemia secondary to hip fracture and surgery Plan Again blood transfusion today. Continue with physical therapy, walker ambulation weightbearing as tolerated on the left. Dressing change today then every other day. Final Diagonsis Displaced subcapital fracture left hip status post cemented bipolar hemiarthroplasty Level of the visit: Level 3 Clinical Quality Measures DVT/VTE Risk/Contraindication: Contraindications-Pharm: Pt at low risk Other: or MEIR CUMMINGS MD Jul 14, 2021 09:04
[2021-07-14] MEDS: cefTRIAXone 1 GM PRE-MIX 50 ML IV SCH (09:27)
[2021-07-14] MEDS: polyethylene glycoL POWDER 17 GM (MIRALAX) PACK PO SCH ×2 (09:30→20:18)
[2021-07-14] MEDS: ASPIRIN E.C. 81 MG (ECOTRIN) TAB PO SCH (09:34)
[2021-07-14] MEDS: METOCLOPRAMIDE 10 MG (REGLAN) TAB PO SCH ×2 (09:34→20:18)
[2021-07-14] MEDS: SENNA W/DOCUSATE (SENOKOT S) TABLET PO SCH ×2 (09:34→20:18)
[2021-07-14] MEDS: LORATADINE (CLARITIN) 10 MG TAB PO SCH (09:35)
--- NOTE | 2021-07-14 10:06 | Physical Therapy Daily Note ---
PT Daily Note-Current Subjective Patient agrees to PT. Mental Status Patient Orientation: Normal For Age Attachments: Oxygen, IV Transfers SCALE: Activities may be completed with or without assistive devices. 4-Bpxuzqzzhd-caamukv completes the activity by him/herself with no assistance from a helper. 5-Set-up or Clean-up Assistance-helper sets up or cleans up; patient completes activity. [place] assists only prior to or following the activity. 4-Supervision or Touching Assistance-helper provides verbal cues and/or touching/steadying and/or contact guard assistance as patient completes activity. Assistance may be provided throughout the activity or intermittently. 3-Partial/Moderate Assistance-helper does LESS THAN HALF the effort. [place] lifts, holds or supports trunk or limbs, but provides less than half the effort. 2-Substantial/Maximal Assistance-helper does MORE THAN HALF the effort. [place] lifts or holds trunk or limbs and provides more than half the effort. 9-Vvgnzvkcm-xzyazg does ALL the effort. Patient does none of the effort to complete the activity. Or, the assistance of 2 or more helpers is required for the patient to complete the activity. If activity was not attempted, code reason: 7-Patient Refused. 9-Not Applicable-not attempted and the patient did not perform the activity before the current illness, exacerbation or injury. 10-Not Attempted due to Environmental Limitations-(lack of equipment, weather restraints, etc.). 88-Not Attempted due to Medical Conditions or Safety Concerns. Sit to Lying (QC): 2 Lying to Sitting/Side of Bed(Q: 2 Sit to Stand (QC): 2 (x 2 sets) Weight Bearing Right Lower Extremity: Right Full Weight Bearing Left Lower Extremity: Left Weight Bearing/Tolerated Gait Training Does the Patient Walk?: No and Walking Goal IS indicated Gait Assistive Device: FWW Exercises Supine Ex: Ankle pumps, Quad Set, Heel Slides Supine Reps: 12 Seated Therapy Exercises: Ankle pumps, Long arc quads Seated Reps: 15 Assessment Patient has critical Hgb and is limited due to pain. PT to increase activity as tolerated by patient. Patient currently not safe to be up in recliner due to Hgb. PT Senior Living Goals Senior Living Goals PT Senior Living Goals Time Frame: Jul 20, 2021 Roll Left & Right (QC): 6 Sit to Lying (QC): 4 Lying-Sitting on Side/Bed(QC): 4 Sit to Stand (QC): 4 Chair/Utr-cb-Hddxp Xfer(QC): 4 Walk 10 feet (QC): 4 Walk 50ft with 2 Turns (QC): 4 PT Plan Treatment/Plan Treatment Plan: Continue Plan of Care Treatment Plan: Bed Mobility, Education, Functional Activity Josh, Functional Strength, Gait, Safety, Therapeutic Exercise, Transfers Treatment Duration: Jul 20, 2021 Frequency: 11 times per week Estimated Hrs Per Day: .25 hour per day Patient and/or Family Agrees t: Yes Time/GCodes Time In: 832 Time Out: 855 Total Billed Treatment Time: 23 Total Billed Treatment 1 visit EX x 2 23 min TEGAN SAUL PT Jul 14, 2021 10:06
--- NOTE | 2021-07-14 10:07 | Diagnostic Imaging Report ---
INDICATION: CHF, recent left hip surgery. EXAMINATION: 2 view chest 07/14/2021. COMPARISON: 08/28/2010. FINDINGS: The heart is prominent. There is pulmonary vascular congestion. There are findings of mild edema. There is atelectasis at the left lung base. There is a small left effusion. No pneumothorax. IMPRESSION: 1. Findings of pulmonary edema. 2. Left base atelectasis with early infiltrate not excluded. Small adjacent effusion. Dictated by: Dictated on workstation # [id number]
--- NOTE | 2021-07-14 10:39 | Discharge Summary ---
Diagnosis/Chief Complaint Date of Admission Jul 12, 2021 at 07:10 Date of Discharge Discharge Date: Jul 14, 2021 Discharge Summary Discharge Physical Examination Allergies: Coded Allergies: cortisone (Verified Allergy, Unknown, 01/30/07) diphenhydramine (Verified Allergy, Unknown, 01/30/07) penicillin G (Verified Allergy, Unknown, 07/12/21) The patient is unaware that she has a penicillin allergy. She does not remember ever taking it and if she did what the reaction was. It has not been recently. Vitals & I&Os Vital Signs Date Time Temp Pulse Resp B/P (MAP) Pulse Ox O2 Delivery O2 Flow Rate FiO2 07/14/21 11:34 36.7 78 18 99/65 (76) 94 Nasal Cannula 3.00 Hospital Course Labs (last 24 hrs) Laboratory Tests 07/12/21 05:30: White Blood Count 7.8, Red Blood Count 3.67L, Hemoglobin 11.0L, Hematocrit 36, Mean Corpuscular Volume 98, Mean Corpuscular Hemoglobin 30, Mean Corpuscular H emoglobin Concent 31L, Red Cell Distribution Width 15.0H, Platelet Count 143, Mean Platelet Volume 9.9, Immature Granulocyte % (Auto) 1, Neutrophils (%) (Auto) 76H, Lymphocytes (%) (Auto) 16, Monocytes (%) (Auto) 6, Eosinophils (%) (Auto) 1, Basophils (%) (Auto) 0, Neutrophils # (Auto) 5.9, Lymphocytes # (Auto) 1.2, Monocytes # (Auto) 0.5, Eosinophils # (Auto) 0.1, Basophils # (Auto) 0.0, Immature Granulocyte # (Auto) 0.1, Prothrombin Time 14.3, INR Comment 1.1, Activated Partial Thromboplast Time 32, Sodium Level 135, Potassium Level 4.1, Chloride Level 103, Carbon Dioxide Level 23, Anion Gap 9, Blood Urea Nitrogen 24H, Creatinine 1.10, Estimat Glomerular Filtration Rate 48, BUN/Creatinine Ratio 22, Glucose Level 157H, Calcium Level 8.5, Corrected Calcium 8.8, Total Bilirubin 0.5, Aspartate Amino Transf (AST/SGOT) 61H, Alanine Aminotransferase (ALT/SGPT) 43, Alkaline Phosphatase 103, Total Protein 8.7H, Albumin 3.6 07/12/21 05:35: Urine Color YELLOW, Urine Clarity CLEAR, Urine pH 6.0, Urine Specific [place] 1.025H, Urine Protein 2+H, Urine Glucose (UA) NEGATIVE, Urine Ketones NEGATIVE, Urine Nitrite POSITIVEH, Urine Bilirubin NEGATIVE, Urine Urobilinogen 0.2, Urine Leukocyte Esterase NEGATIVE, Urine RBC (Auto) 1+H, Urine RBC 2-5H, Urine WBC 5- 10H, Urine Crystals NONE, Urine Bacteria LARGEH, Urine Casts PRESENT, Urine Hyaline Casts 2-5H, Urine Mucus NEGATIVE, Urine Culture Indicated YES 07/13/21 05:15: White Blood Count 8.6, Red Blood Count 2.56L, Hemoglobin 7.9#L, Hematocrit 25L, Mean Corpuscular Volume 98, Mean Corpuscular Hemoglobin 31, Mean Corpuscular Hemoglobin Concent 32, Red Cell Distribution Width 15.6H, Platelet Count 172, Mean Platelet Volume 10.7, Immature Granulocyte % (Auto) 0, Neutrophils (%) (Auto) 62, Lymphocytes (%) (Auto) 24, Monocytes (%) (Auto) 12, Eosinophils (%) (Auto) 2, Basophils (%) (Auto) 0, Neutrophils # (Auto) 5.3, Lymphocytes # (Auto) 2.0, Monocytes # (Auto) 1.1H, Eosinophils # (Auto) 0.2, Basophils # (Auto) 0.0, Immature Granulocyte # (Auto) 0.0, Sodium Level 136, Potassium Level 4.2, Chloride Level 105, Carbon Dioxide Level 22, Anion Gap 9, Blood Urea Nitrogen 25H, Creatinine 1.43H, Estimat Glomerular Filtration Rate 35, BUN/Creatinine Ratio 17, Glucose Level 127H, Calcium Level 7.7L, Corrected Calcium 8.7, Total Bilirubin 0.3, Aspartate Amino Transf (AST/SGOT) 38H, Alanine Aminotransferase (ALT/SGPT) 23, Alkaline Phosphatase 76, Total Protein 6.5, Albumin 2.7L 07/13/21 05:20: Triglycerides Level 160H, Cholesterol Level 113, LDL Cholesterol Direct 67, VLDL Cholesterol 32, HDL Cholesterol 19L 07/14/21 05:05: White Blood Count 4.8, Red Blood Count 2.08L, Hemoglobin 6.3#*L, Hematocrit 21L, Mean Corpuscular Volume 99, Mean Corpuscular Hemoglobin 30, Mean Corpuscular Hemoglobin Concent 31L, Red Cell Distribution Width 15.8H, Platelet Count 102L, Mean Platelet Volume 10.9, Immature Granulocyte % (Auto) 0, Neutrophils (%) (Auto) 66, Lymphocytes (%) (Auto) 20, Monocytes (%) (Auto) 11, Eosinophils (%) (Auto) 2, Basophils (%) (Auto) 0, Neutrophils # (Auto) 3.2, Lymphocytes # (Auto) 1.0, Monocytes # (Auto) 0.5, Eosinophils # (Auto) 0.1, Basophils # (Auto) 0.0, Immature Granulocyte # (Auto) 0.0, Sodium Level 136, Potassium Level 4.1, Chloride Level 109H, Carbon Dioxide Level 21, Anion Gap 6, Blood Urea Nitrogen 27H, Creatinine 1.28, Estimat Glomerular Filtration Rate 40, BUN/Creatinine Ratio 21, Glucose Level 121H, Calcium Level 7.9L, Corrected Calcium 9.1, Total Bilirubin 0.3, Aspartate Amino Transf (AST/SGOT) 30, Alanine Aminotransferase (ALT/SGPT) 11, Alkaline Phosphatase 64, B-Type Natriuretic Peptide 267.1H, Total Protein 6.3L, Albumin 2.5L Microbiology 07/12/21 MRSA Screen - Final, Complete MRSA not isolated 07/12/21 Urine Culture - Preliminary, Resulted Escherichia coli Pending Labs Microbiology Date/Time Source Procedure Growth Status 07/12/21 11:25 Nasal MRSA Screen - Final MRSA not isolated Complete 07/12/21 05:35 Urine Straight Cath, In/Out Urine Culture - Preliminary Escherichia coli Resulted Laboratory Tests 07/12/21 05:30: White Blood Count 7.8, Red Blood Count 3.67, Hemoglobin 11.0, Hematocrit 36, Mean Corpuscular Volume 98, Mean Corpuscular Hemoglobin 30, Mean Corpuscular Hemoglobin Concent 31, Red Cell Distribution Width 15.0, Platelet Count 143, Mean Platelet Volume 9.9, Immature Granulocyte % (Auto) 1, Neutrophils (%) (Auto) 76, Lymphocytes (%) (Auto) 16, Monocytes (%) (Auto) 6, Eosinophils (%) (Auto) 1, Basophils (%) (Auto) 0, Neutrophils # (Auto) 5.9, Lymphocytes # (Auto) 1.2, Monocytes # (Auto) 0.5, Eosinophils # (Auto) 0.1, Basophils # (Auto) 0.0, Immature Granulocyte # (Auto) 0.1, Prothrombin Time 14.3, INR Comment 1.1, Activated Partial Thromboplast Time 32, Sodium Level 135, Potassium Level 4.1, Chloride Level 103, Carbon Dioxide Level 23, Anion Gap 9, Blood Urea Nitrogen 24, Creatinine 1.10, Estimat Glomerular Filtration Rate 48, BUN/Creatinine Ratio 22, Glucose Level 157, Calcium Level 8.5, Corrected Calcium 8.8, Total Bilirubin 0.5, Aspartate Amino Transf (AST/SGOT) 61, Alanine Aminotransferase (ALT/SGPT) 43, Alkaline Phosphatase 103, Total Protein 8.7, Albumin 3.6 07/12/21 05:35: Urine Color YELLOW, Urine Clarity CLEAR, Urine pH 6.0, Urine Specific [place] 1.025, Urine Protein 2+, Urine Glucose (UA) NEGATIVE, Urine Ketones NEGATIVE, Urine Nitrite POSITIVE, Urine Bilirubin NEGATIVE, Urine Urobilinogen 0.2, Urine Leukocyte Esterase NEGATIVE, Urine RBC (Auto) 1+, Urine RBC 2-5, Urine WBC 5-10, Urine Crystals NONE, Urine Bacteria LARGE, Urine Casts PRESENT, Urine Hyaline Casts 2-5, Urine Mucus NEGATIVE, Urine Culture Indicated YES 07/13/21 05:15: White Blood Count 8.6, Red Blood Count 2.56, Hemoglobin 7.9, Hematocrit 25, Mean Corpuscular Volume 98, Mean Corpuscular Hemoglobin 31, Mean Corpuscular Hemoglobin Concent 32, Red Cell Distribution Width 15.6, Platelet Count 172, Mean Platelet Volume 10.7, Immature Granulocyte % (Auto) 0, Neutrophils (%) (Auto) 62, Lymphocytes (%) (Auto) 24, Monocytes (%) (Auto) 12, Eosinophils (%) (Auto) 2, Basophils (%) (Auto) 0, Neutrophils # (Auto) 5.3, Lymphocytes # (Auto) 2.0, Monocytes # (Auto) 1.1, Eosinophils # (Auto) 0.2, Basophils # (Auto) 0.0, Immature Granulocyte # (Auto) 0.0, Sodium Level 136, Potassium Level 4.2, Chloride Level 105, Carbon Dioxide Level 22, Anion Gap 9, Blood Urea Nitrogen 25, Creatinine 1.43, Estimat Glomerular Filtration Rate 35, BUN/Creatinine Ratio 17, Glucose Level 127, Calcium Level 7.7, Corrected Calcium 8.7, Total Bilirubin 0.3, Aspartate Amino Transf (AST/SGOT) 38, Alanine Aminotransferase (ALT/SGPT) 23, Alkaline Phosphatase 76, Total Protein 6.5, Albumin 2.7 07/13/21 05:20: Triglycerides Level 160, Cholesterol Level 113, LDL Cholesterol Direct 67, VLDL Cholesterol 32, HDL Cholesterol 19 07/14/21 05:05: White Blood Count 4.8, Red Blood Count 2.08, Hemoglobin 6.3, Hematocrit 21, Mean Corpuscular Volume 99, Mean Corpuscular Hemoglobin 30, Mean Corpuscular Hemoglobin Concent 31, Red Cell Distribution Width 15.8, Platelet Count 102, Mean Platelet Volume 10.9, Immature Granulocyte % (Auto) 0, Neutrophils (%) (Auto) 66, Lymphocytes (%) (Auto) 20, Monocytes (%) (Auto) 11, Eosinophils (%) (Auto) 2, Basophils (%) (Auto) 0, Neutrophils # (Auto) 3.2, Lymphocytes # (Auto) 1.0, Monocytes # (Auto) 0.5, Eosinophils # (Auto) 0.1, Basophils # (Auto) 0.0, Immature Granulocyte # (Auto) 0.0, Sodium Level 136, Potassium Level 4.1, Chl oride Level 109, Carbon Dioxide Level 21, Anion Gap 6, Blood Urea Nitrogen 27, Creatinine 1.28, Estimat Glomerular Filtration Rate 40, BUN/Creatinine Ratio 21, Glucose Level 121, Calcium Level 7.9, Corrected Calcium 9.1, Iron Level [Pending], Total Bilirubin 0.3, Aspartate Amino Transf (AST/SGOT) 30, Alanine Aminotransferase (ALT/SGPT) 11, Alkaline Phosphatase 64, B-Type Natriuretic Peptide 267.1, Total Protein 6.3, Albumin 2.5 Discharge Home Medications: Active Scripts Active Reported Furosemide 20 Mg Tablet 20 Mg PO DAILY Paroxetine HCl 40 Mg Tablet 40 Mg PO HS Trazodone HCl 50 Mg Tablet 50 Mg PO HS PRN Atorvastatin Calcium 20 Mg Tablet 20 Mg PO DAILY Aspirin EC (Aspirin) 81 Mg Tablet.dr 81 Mg PO DAILY Montelukast Sodium 10 Mg Tablet 10 Mg PO HS Lisinopril 40 Mg Tablet 40 Mg PO DAILY Metoclopramide HCl 10 Mg Tablet 10 Mg PO BID Cetirizine HCl 10 Mg Tablet 10 Mg PO DAILY Metoprolol Succinate 50 Mg Tab.er.24h 50 Mg PO DAILY LAST FILLED 01-26-2021 #90/90 DAY SUPPLY Instructions to patient/family Please see electronic discharge instructions given to patient. Clinical Quality Measures DVT/VTE Risk/Contraindication: Contraindications-Pharm: Pt at low risk Other: or MAE LENTZ DO Jul 14, 2021 10:39
--- NOTE | 2021-07-14 11:00 | Occupational Ther Daily Note ---
OT Current Status-Daily Note Subjective Pt alert, sitting in recliner. Pt agrees to therapy. No c/o pain. Mental Status/Objective Patient Orientation: Person, Place, Time, Situation Attachments: Tucker Catheter, IV, Oxygen ADL-Treatment Pt stated that she was able to complete all ADLs for herself at home. Due to hip precautions education for lower body dressing was completed. Pt given information on AE that would be useful to modify LB dressing. Demonstrated how to use piano teacher to don pants and doff socks then used sock aide to don socks. Pt appeared tentative with equipment but did attempt to use. After session, pt sitting in recliner with call light/phone in reach. All needs met in room. Therapy Code Descriptions/Definitions Functional [place] Measure: 0=Not Assessed/NA 4=Minimal Assistance 1=Total Assistance 5=Supervision or Setup 2=Maximal Assistance 6=Modified [place] 3=Moderate Assistance 7=Complete IndependenceSCALE: Activities may be completed with or without assistive devices. 2-Panqyitxds-jvuhcwp completes the activity by him/herself with no assistance from a helper. 5-Set-up or Clean-up Assistance-helper sets up or cleans up; patient completes activity. [place] assists only prior to or following the activity. 4-Supervision or Touching Assistance-helper provides verbal cues and/or touching/steadying and/or contact guard assistance as patient completes activity. Assistance may be provided throughout the activity or intermittently. 3-Partial/Moderate Assistance-helper does LESS THAN HALF the effort. [place] lifts, holds or supports trunk or limbs, but provides less than half the effort. 2-Substantial/Maximal Assistance-helper does MORE THAN HALF the effort. [place] lifts or holds trunk or limbs and provides more than half the effort. 3-Rjlgtaspm-estese does ALL the effort. Patient does none of the effort to complete the activity. Or, the assistance of 2 or more helpers is required for the patient to complete the activity. If activity was not attempted, code reason: 7-Patient Refused. 9-Not Applicable-not attempted and the patient did not perform the activity before the current illness, exacerbation or injury. 10-Not Attempted due to Environmental Limitations-(lack of equipment, weather restraints, etc.). 88-Not Attempted due to Medical Conditions or Safety Concerns. Education OT Patient Education: Use of adapted equipment Teaching Recipient: Patient Teaching Methods: Demonstration, Handout, Discussion Response to Teaching: Verbalize Understanding, Return Demonstration, Reinforcement Needed OT Claims Adjuster Goals Claims Adjuster Goals Time Frame: Jul 27, 2021 Oral Hygiene (QC): 5 Toileting Hygiene (QC): 4 Shower/Bathe Self (QC): 4 Upper Body Dressing (QC): 5 Lower Body Dressing (QC): 4 On/Off Footwear (QC): 4 1=Demonstrate adherence to instructed precautions during ADL tasks. 2=Patient will verbalize/demonstrate understanding of assistive devices/modifications for ADL. 3=Patient will improve strength/tolerance for activity to enable patient to perform ADL's. OT Education/Plan Problem List/Assessment Assessment: Decreased Activ Tolerance, Impaired Self-Care Skills Discharge Recommendations Plan/Recommendations: Continue POC Treatment Plan/Plan of Care Patient would benefit from OT for education, treatment and training to promote independence in ADL's, mobility, safety and/or upper extremity function for ADL's. Plan of Care: ADL Retraining, Functional Mobility, UE Funct Exercise/Act, W/C Management Training Treatment Duration: Jul 27, 2021 Frequency: 3 times per week Estimated Hrs Per Day: .25 hour per day Rehab Potential: Fair Time/GCodes Start Time: 10:36 Stop Time: 10:53 Total Time Billed (hr/min): 18 Billed Treatment Time 1 visit-FA 1 (18 min) NATHAN BURT Jul 14, 2021 11:00
--- NOTE | 2021-07-14 12:18 | Progress Note - Hospitalist ---
Subjective HPI/CC On Admission Date Seen by Provider: Jul 14, 2021 Time Seen by Provider: 11:00 CC: Left femoral neck fracture HPI: This is a [facility] patient who lives with her son and kuqfmjdq-cq-xwu who fell on the floor and suffered a left femoral neck fracture. Pt is very frail but appears to meet criteria for repair. Benefits outweigh the medical risk in my opinion. I have checked meds and labs and I have consulted cardiology and echocardiogram will be obtained to evaluate the systolic dysfunction that was seen on prior exam. Subjective/Events-last exam Pt doing a little better Hgb 6.3 Creatinine 1.23 Medicare advantage plan will need skilled care since they did not improve rehab Review of Systems General: Fatigue, Malaise Objective Exam Vital Signs Vital Signs Date Time Temp Pulse Resp B/P (MAP) Pulse Ox O2 Delivery O2 Flow Rate FiO2 07/15/21 04:54 36.0 84 20 147/78 (101) 95 Nasal Cannula 3.00 Capillary Refill : Less Than 3 SecondsLess Than 3 Seconds General Appearance: No Apparent Distress, WD/WN, Chronically ill Respiratory: Lungs Clear, Normal Breath Sounds Cardiovascular: Regular Rate, Rhythm Neurologic/Psychiatric: Alert, Oriented x3 Results/Procedures Lab Patient resulted labs reviewed. Assessment/Plan Assessment and Plan Assess & Plan/Chief Complaint Assessment: L hip Fracture status post uncomplicated repair by Dr. Ledesma UTI on Rocephin Systolic congestive heart failure ejection fraction 40% Hypertension Decreased urinary output Acute kidney insufficiency Acute blood loss anemia requiring 2 units of transfusion Plan: Pain control Increase IV fluids Supportive care 07/14/2021: Transfuse PT and OT Clinical Quality Measures DVT/VTE Risk/Contraindication: Contraindications-Pharm: Pt at low risk Other: or MAE LENTZ DO Jul 14, 2021 12:18
--- NOTE | 2021-07-14 14:00 | Physical Therapy Daily Note ---
PT Daily Note-Current Subjective Patient agrees to PT. Mental Status Patient Orientation: Person, Time, Situation Attachments: Oxygen, Tucker Catheter, IV Transfers SCALE: Activities may be completed with or without assistive devices. 0-Kebtwpnovv-kfqxrlo completes the activity by him/herself with no assistance from a helper. 5-Set-up or Clean-up Assistance-helper sets up or cleans up; patient completes activity. [place] assists only prior to or following the activity. 4-Supervision or Touching Assistance-helper provides verbal cues and/or touching/steadying and/or contact guard assistance as patient completes activity. Assistance may be provided throughout the activity or intermittently. 3-Partial/Moderate Assistance-helper does LESS THAN HALF the effort. [place] lifts, holds or supports trunk or limbs, but provides less than half the effort. 2-Substantial/Maximal Assistance-helper does MORE THAN HALF the effort. [place] lifts or holds trunk or limbs and provides more than half the effort. 0-Kcoczxnej-lwhqoo does ALL the effort. Patient does none of the effort to complete the activity. Or, the assistance of 2 or more helpers is required for the patient to complete the activity. If activity was not attempted, code reason: 7-Patient Refused. 9-Not Applicable-not attempted and the patient did not perform the activity before the current illness, exacerbation or injury. 10-Not Attempted due to Environmental Limitations-(lack of equipment, weather restraints, etc.). 88-Not Attempted due to Medical Conditions or Safety Concerns. Roll Left & Right (QC): 1 Sit to Lying (QC): 1 Sit to Stand (QC): 1 Chair/Izs-qs-Fktqi Xfer(QC): 1 Weight Bearing Right Lower Extremity: Right Full Weight Bearing Left Lower Extremity: Left Weight Bearing/Tolerated Gait Training Does the Patient Walk?: No and Walking Goal IS indicated Gait Assistive Device: FWW attempted 2 steps but unable to perform Exercises Supine Ex: Ankle pumps, Quad Set, Heel Slides Supine Reps: 12 (AAROM) Assessment Patient tolerates minimal activity and returned to bed. Patient repositioned dependent of 2 up in bed with abduction pillow in place. PT Retirement Goals Retirement Goals PT Internet Sales Manager Goals Time Frame: Jul 20, 2021 Roll Left & Right (QC): 6 Sit to Lying (QC): 4 Lying-Sitting on Side/Bed(QC): 4 Sit to Stand (QC): 4 Chair/Ode-ia-Uxdmy Xfer(QC): 4 Walk 10 feet (QC): 4 Walk 50ft with 2 Turns (QC): 4 PT Plan Treatment/Plan Treatment Plan: Continue Plan of Care Treatment Plan: Bed Mobility, Education, Functional Activity Josh, Functional Strength, Gait, Safety, Therapeutic Exercise, Transfers Treatment Duration: Jul 20, 2021 Frequency: 11 times per week Estimated Hrs Per Day: .25 hour per day Patient and/or Family Agrees t: Yes Time/GCodes Time In: 1325 Time Out: 1342 Total Billed Treatment Time: 17 Total Billed Treatment 1 visit FA 17 min TEGAN SAUL PT Jul 14, 2021 14:00
[2021-07-14] MEDS ORDERED: FUROSEMIDE 40 MG/4 ML INJ (LASIX) IVP ONE (16:15)
--- NOTE | 2021-07-14 16:15 | Cardiology Progress Note ---
Progress Note-Cardiology Events since last exam Date Seen by Provider: Jul 14, 2021 Time Seen by Provider: 16:10 Events since last exam I am following her due to heart failure. She appears to have received 4 L of normal saline over the past 2 days. On 07/13 she received some intravenous Lasix. She is currently receiving a blood transfusion. She denies shortness of breath. She denies chest discomfort, palpitations, or syncope. Certain portions of this document may have been dictated utilizing voice rec ognition technology. Inherent to this technology, typographical and grammatical errors may exist. As much as I am diligent to identify and correct these mistakes, some errors may remain in the document. Vitals Last set of Vitals Signs Vital Signs 07/14/21 15:15 Temp 37.3 Pulse 97 Resp 22 B/P (MAP) 134/76 Pulse Ox 93 O2 Delivery Nasal Cannula O2 Flow Rate 3.00 Labs Labs Laboratory Tests 07/14/21 05:05 Exam Vital Signs Vital Signs Date Time Temp Pulse Resp B/P (MAP) Pulse Ox O2 Delivery O2 Flow Rate FiO2 07/14/21 15:15 37.3 97 22 134/76 93 Nasal Cannula 3.00 Physical Exam General: Alert. No acute distress. She is obese. Eye: No xanthelasma. HENT: Normocephalic. Neck: Jugular venous pressure does not appear elevated. Respiratory: Lungs are clear to auscultation. Respirations are non-labored. Breath sounds are equal. Symmetrical chest wall expansion. Cardiovascular: Normal rate. Regular rhythm. No murmur. No gallop. No edema. Gastrointestinal: Soft. Normal bowel sounds. Skin: Warm. Dry. Neurologic: Alert and oriented to person, place, time. Cranial nerves 3-11 grossly intact. Psychiatric: Cooperative. Appropriate mood & affect. Labs Laboratory Tests Test 07/14/21 05:05 Range/Units White Blood Count 4.8 4.3-11.0 10^3/uL Red Blood Count 2.08 L 3.80-5.11 10^6/uL Hemoglobin 6.3 #*L 11.5-16.0 g/dL Hematocrit 21 L 35-52 % Mean Corpuscular Volume 99 80-99 fL Mean Corpuscular Hemoglobin 30 25-34 pg Mean Corpuscular Hemoglobin Concent 31 L 32-36 g/dL Red Cell Distribution Width 15.8 H 10.0-14.5 % Platelet Count 102 L 130-400 10^3/uL Mean Platelet Volume 10.9 9.0-12.2 fL Immature Granulocyte % (Auto) 0 % Neutrophils (%) (Auto) 66 42-75 % Lymphocytes (%) (Auto) 20 12-44 % Monocytes (%) (Auto) 11 0-12 % Eosinophils (%) (Auto) 2 0-10 % Basophils (%) (Auto) 0 0-10 % Neutrophils # (Auto) 3.2 1.8-7.8 10^3/uL Lymphocytes # (Auto) 1.0 1.0-4.0 10^3/uL Monocytes # (Auto) 0.5 0.0-1.0 10^3/uL Eosinophils # (Auto) 0.1 0.0-0.3 10^3/uL Basophils # (Auto) 0.0 0.0-0.1 10^3/uL Immature Granulocyte # (Auto) 0.0 0.0-0.1 10^3/uL Sodium Level 136 135-145 MMOL/L Potassium Level 4.1 3.6-5.0 MMOL/L Chloride Level 109 H 98-107 MMOL/L Carbon Dioxide Level 21 21-32 MMOL/L Anion Gap 6 5-14 MMOL/L Blood Urea Nitrogen 27 H 7-18 MG/DL Creatinine 1.28 0.60-1.30 MG/DL Estimat Glomerular Filtration Rate 40 BUN/Creatinine Ratio 21 Glucose Level 121 H 70-105 MG/DL Calcium Level 7.9 L 8.5-10.1 MG/DL Corrected Calcium 9.1 8.5-10.1 MG/DL Total Bilirubin 0.3 0.1-1.0 MG/DL Aspartate Amino Transf (AST/SGOT) 30 5-34 U/L Alanine Aminotransferase (ALT/SGPT) 11 0-55 U/L Alkaline Phosphatase 64 40-136 U/L B-Type Natriuretic Peptide 267.1 H <100.0 PG/ML Total Protein 6.3 L 6.4-8.2 GM/DL Albumin 2.5 L 3.2-4.5 GM/DL Diagnosis/Problems Diagnosis/Problems (1) Acute on chronic systolic heart failure Assessment & Plan: She had a chest x-ray earlier today that showed evidence of pulmonary congestion. She is receiving a blood transfusion as well as intravenous fluids. I recommend stopping the intravenous fluids at this time. I will order another dose of intravenous furosemide after her second blood transfusion is completed. I will obtain a follow-up chest x-ray in the morning. Continue lisinopril and metoprolol succinate however, both were held this morning due to low blood pressure. Resume when able. (2) Cardiomyopathy Assessment & Plan: She had mild left ventricular systolic dysfunction on her most recent echocardiogram. She is on metoprolol succinate and lisinopril which should be continued as long as her blood pressure tolerates. If her blood pressure continues to remain low, we may need to decrease the dose of both medications. (3) Coronary artery disease without angina pectoris Assessment & Plan: She has a history of coronary artery disease but is not having any angina at the present time. Continue aspirin, beta-amy, and s tatin medication. (4) Primary hypertension Assessment & Plan: Blood pressures were low this morning and both lisinopril and metoprolol were held. I asked the nurse to give her metoprolol this evening if the blood pressure improves and resume lisinopril tomorrow. (5) Mixed hyperlipidemia Assessment & Plan: Continue atorvastatin. SHARATH JORDAN JR, MD Jul 14, 2021 16:15
[2021-07-14] MEDS ORDERED: meTOproloL SUCCINATE 50 MG (TOPROL XL) TAB PO SCH (18:15)
[2021-07-14] MEDS: MONTELUKAST 10 MG (SINGULAIR) TAB PO SCH (20:18)
[2021-07-14] MEDS: PARoxetine 20 MG (PAXIL) TAB PO SCH (20:18)
[2021-07-15 04:54] VITALS: BP 147/78
[2021-07-15] MEDS: ENOXAPARIN 40 MG/0.4 ML (LOVENOX) SYR SC SCH (05:12)
--- NOTE | 2021-07-15 06:11 | Progress Note - Hospitalist ---
Subjective HPI/CC On Admission Date Seen by Provider: Jul 15, 2021 Time Seen by Provider: 11:00 CC: Left femoral neck fracture HPI: This is a [facility] patient who lives with her son and oabvwmtn-bu-vhh who fell on the floor and suffered a left femoral neck fracture. Pt is very frail but appears to meet criteria for repair. Benefits outweigh the medical risk in my opinion. I have checked meds and labs and I have consulted cardiology and echocardiogram will be obtained to evaluate the systolic dysfunction that was seen on prior exam. Subjective/Events-last exam Patient doing about the same Crackles in lungs bases Does not use the incentive spirometer very well at all Bowels are not moving so ordered suppository and enemas Discontinue catheter At 1530 hrs. nurse calls me to report an abrupt decrease in patient's oxygen so septic work-up ordered Review of Systems General: Fatigue, Malaise Pulmonary: Dyspnea Musculoskeletal: leg pain Objective Exam Vital Signs Vital Signs Date Time Temp Pulse Resp B/P (MAP) Pulse Ox O2 Delivery O2 Flow Rate FiO2 07/15/21 12:00 36.0 75 18 145/79 (101) 95 Nasal Cannula 2.00 Capillary Refill : Less Than 3 SecondsLess Than 3 Seconds General Appearance: No Apparent Distress, WD/WN, Chronically ill Respiratory: No Accessory Muscle Use, No Respiratory Distress, Crackles, De creased Breath Sounds Cardiovascular: Regular Rate, Rhythm Neurologic/Psychiatric: Alert, Oriented x3, Depressed Affect, Disoriented Results/Procedures Lab Laboratory Tests 07/15/21 05:24 Patient resulted labs reviewed. Assessment/Plan Assessment and Plan Assess & Plan/Chief Complaint Assessment: L hip Fracture status post uncomplicated repair by Dr. Ledesma UTI on Rocephin Systolic congestive heart failure ejection fraction 40% Hypertension Decreased urinary output Acute kidney insufficiency Acute blood loss anemia requiring 2 units of transfusion Plan: Pain control Increase IV fluids Supportive care 07/14/2021: Transfuse PT and OT 07/15/2021: Septic work-up Check chest x-ray again today Lasix 40 mg x 1 Clinical Quality Measures DVT/VTE Risk/Contraindication: Contraindications-Pharm: Pt at low risk Other: or MAE LENTZ DO Jul 15, 2021 06:11
[2021-07-15 06:30] LABS: MEAN CORPUSCULAR VOLUME 94 fL (80-99)
[2021-07-15 06:32] LABS: BASOPHILS % (AUTO) 1 % (0-10); EOSINOPHILS # (AUTO) 0.1 10^3/uL (0.0-0.3); EOSINOPHILS % (AUTO) 3 % (0-10); HEMATOCRIT 28 % (35-52); HEMOGLOBIN 8.9 g/dL (11.5-16.0); LYMPHOCYTES # (AUTO) 1.1 10^3/uL (1.0-4.0); LYMPHOCYTES % (AUTO) 20 % (12-44); MEAN CORPUSCULAR HEMOGLOBIN 30 pg (25-34); MEAN CORPUSCULAR HGB CONC 32 g/dL (32-36); MEAN PLATELET VOLUME 11.4 fL (9.0-12.2); MONOCYTES # (AUTO) 0.5 10^3/uL (0.0-1.0); MONOCYTES % (AUTO) 10 % (0-12); NEUTROPHILS # (AUTO) 3.5 10^3/uL (1.8-7.8); NEUTROPHILS % (AUTO) 66 % (42-75); PLATELET COUNT 113 10^3/uL (130-400); WHITE BLOOD COUNT 5.3 10^3/uL (4.3-11.0)
[2021-07-15 06:50] LABS: ALBUMIN 2.8 GM/DL (3.2-4.5); BILIRUBIN,TOTAL 0.6 MG/DL (0.1-1.0); CALCIUM 8.4 MG/DL (8.5-10.1); CREATININE SERUM 1.01 MG/DL (0.60-1.30); TOTAL PROTEIN 6.9 GM/DL (6.4-8.2)
[2021-07-15] MEDS: RT-ALBUTEROL SULF 2.5 MG/3 ML PRE-MIX VIAL INH SCH ×3 (07:07→21:59)
--- NOTE | 2021-07-15 07:25 | Diagnostic Imaging Report ---
Portable semi-erect AP chest at 6:26. Indication: Heart failure The cardiomegaly noted on the prior exam of 07/12/2021 is again evident and not significantly changed. In the interval since the prior study however a small amount of atelectasis/infiltrate and fluid has developed in the left lung base. The lungs are otherwise generally clear. The mediastinum is not widened. The osseous structures are intact. Impression: In the interval since the prior study a small amount of atelectasis/infiltrate and fluid has developed in the left lung base. The overall appearance of the chest is otherwise stable. Dictated by: Dictated on workstation # [id number]
[2021-07-15 08:00] VITALS: BP 139/69
[2021-07-15] MEDS: lisINopril 20 MG (PRINIVIL) TABLET PO SCH (09:16)
[2021-07-15] MEDS: METOCLOPRAMIDE 10 MG (REGLAN) TAB PO SCH ×2 (09:16→20:42)
[2021-07-15] MEDS: polyethylene glycoL POWDER 17 GM (MIRALAX) PACK PO SCH ×2 (09:16→20:42)
[2021-07-15] MEDS: meTOproloL SUCCINATE 50 MG (TOPROL XL) TAB PO SCH ×2 (09:16→09:20)
[2021-07-15] MEDS: ASPIRIN E.C. 81 MG (ECOTRIN) TAB PO SCH (09:16)
[2021-07-15] MEDS: cefTRIAXone 1 GM PRE-MIX 50 ML IV SCH (09:17)
[2021-07-15] MEDS: SENNA W/DOCUSATE (SENOKOT S) TABLET PO SCH ×2 (09:17→20:42)
[2021-07-15] MEDS: LORATADINE (CLARITIN) 10 MG TAB PO SCH (09:17)
--- NOTE | 2021-07-15 09:27 | Physical Therapy Daily Note ---
PT Daily Note-Current Subjective Patient much more alert and agreeable to participate with PT. Pain Numeric Pain Scale: 5-Moderate Pain Location: Left Location Body Site: Hip Pain Description: Acute Mental Status Patient Orientation: Person, Time, Situation Attachments: Oxygen, Tucker Catheter Transfers SCALE: Activities may be completed with or without assistive devices. 9-Gznjwrbrdn-qzmmeza completes the activity by him/herself with no assistance from a helper. 5-Set-up or Clean-up Assistance-helper sets up or cleans up; patient completes activity. [place] assists only prior to or following the activity. 4-Supervision or Touching Assistance-helper provides verbal cues and/or touching/steadying and/or contact guard assistance as patient completes activity. Assistance may be provided throughout the activity or intermittently. 3-Partial/Moderate Assistance-helper does LESS THAN HALF the effort. [place] lifts, holds or supports trunk or limbs, but provides less than half the effort. 2-Substantial/Maximal Assistance-helper does MORE THAN HALF the effort. [place] lifts or holds trunk or limbs and provides more than half the effort. 6-Yumjbgvjj-iuxjfg does ALL the effort. Patient does none of the effort to complete the activity. Or, the assistance of 2 or more helpers is required for the patient to complete the activity. If activity was not attempted, code reason: 7-Patient Refused. 9-Not Applicable-not attempted and the patient did not perform the activity before the current illness, exacerbation or injury. 10-Not Attempted due to Environmental Limitations-(lack of equipment, weather restraints, etc.). 88-Not Attempted due to Medical Conditions or Safety Concerns. Lying to Sitting/Side of Bed(Q: 3 Sit to Stand (QC): 3 Chair/Ood-yw-Unsyp Xfer(QC): 3 Weight Bearing Right Lower Extremity: Right Full Weight Bearing Left Lower Extremity: Left Weight Bearing/Tolerated Gait Training Does the Patient Walk?: Yes Distance: 50' Walk 10 feet (QC): 3 Walk 50 ft with 2 Turns(QC): 3 Walk 150 ft (QC): 88 Gait Assistive Device: FWW slow, step to gait sequence Exercises Seated Therapy Exercises: Ankle pumps, Long arc quads Seated Reps: 12 Assessment Patient progressing slowly with treatment plan. Patient did showed improvement on this date. PT Fpc Goals Fpc Goals PT Fun House Operator Goals Time Frame: Jul 20, 2021 Roll Left & Right (QC): 6 Sit to Lying (QC): 4 Lying-Sitting on Side/Bed(QC): 4 Sit to Stand (QC): 4 Chair/Bku-in-Luamg Xfer(QC): 4 Walk 10 feet (QC): 4 Walk 50ft with 2 Turns (QC): 4 PT Plan Treatment/Plan Treatment Plan: Continue Plan of Care Treatment Plan: Bed Mobility, Education, Functional Activity Josh, Functional Strength, Gait, Safety, Therapeutic Exercise, Transfers Treatment Duration: Jul 20, 2021 Frequency: 11 times per week Estimated Hrs Per Day: .25 hour per day Patient and/or Family Agrees t: Yes Time/GCodes Time In: 905 Time Out: 921 Total Billed Treatment Time: 16 Total Billed Treatment 1 visit GT 16 min TEGAN SAUL PT Jul 15, 2021 09:27
--- NOTE | 2021-07-15 09:44 | Occupational Ther Daily Note ---
OT Current Status-Daily Note Subjective Pt alert, sitting up in recliner. Pt agrees to therapy. No c/o pain only fatigue. Pt has just finished ambulating with PT. Mental Status/Objective Patient Orientation: Person, Place, Time, Situation Attachments: IV, Oxygen (2L) ADL-Treatment Pt declines bathing, changing socks. Pt agrees to complete oral care and wash face. After supplies were gathered, pt able to complete oral care with oral swabs, pt has no teeth. Pt then was able to complete washing hands and face. Pt then declined any further participation in OT session. After session, pt sitting in recliner with call light/phone in reach. All needs met in room. Therapy Code Descriptions/Definitions Functional Printer Measure: 0=Not Assessed/NA 4=Minimal Assistance 1=Total Assistance 5=Supervision or Setup 2=Maximal Assistance 6=Modified Printer 3=Moderate Assistance 7=Complete IndependenceSCALE: Activities may be completed with or without assistive devices. 4-Uhrgrlwtxo-ypnkdmq completes the activity by him/herself with no assistance from a helper. 5-Set-up or Clean-up Assistance-helper sets up or cleans up; patient completes activity. [place] assists only prior to or following the activity. 4-Supervision or Touching Assistance-helper provides verbal cues and/or touching/steadying and/or contact guard assistance as patient completes activity. Assistance may be provided throughout the activity or intermittently. 3-Partial/Moderate Assistance-helper does LESS THAN HALF the effort. [place] lifts, holds or supports trunk or limbs, but provides less than half the effort. 2-Substantial/Maximal Assistance-helper does MORE THAN HALF the effort. [place] lifts or holds trunk or limbs and provides more than half the effort. 3-Zoopbksbi-hjxtmb does ALL the effort. Patient does none of the effort to complete the activity. Or, the assistance of 2 or more helpers is required for the patient to complete the activity. If activity was not attempted, code reason: 7-Patient Refused. 9-Not Applicable-not attempted and the patient did not perform the activity before the current illness, exacerbation or injury. 10-Not Attempted due to Environmental Limitations-(lack of equipment, weather restraints, etc.). 88-Not Attempted due to Medical Conditions or Safety Concerns. Oral Hygiene (QC): 5 OT Supervisor Laundry Goals Supervisor Laundry Goals Time Frame: Jul 27, 2021 Oral Hygiene (QC): 5 Toileting Hygiene (QC): 4 Shower/Bathe Self (QC): 4 Upper Body Dressing (QC): 5 Lower Body Dressing (QC): 4 On/Off Footwear (QC): 4 1=Demonstrate adherence to instructed precautions during ADL tasks. 2=Patient will verbalize/demonstrate understanding of assistive devices/modifications for ADL. 3=Patient will improve strength/tolerance for activity to enable patient to pe rform ADL's. OT Education/Plan Problem List/Assessment Assessment: Decreased Activ Tolerance, Impaired Self-Care Skills Discharge Recommendations Plan/Recommendations: Continue POC Treatment Plan/Plan of Care Patient would benefit from OT for education, treatment and training to promote independence in ADL's, mobility, safety and/or upper extremity function for ADL's. Plan of Care: ADL Retraining, Functional Mobility, UE Funct Exercise/Act, W/C Management Training Treatment Duration: Jul 27, 2021 Frequency: 3 times per week Estimated Hrs Per Day: .25 hour per day Rehab Potential: Fair Time/GCodes Start Time: 09:26 Stop Time: 09:36 Total Time Billed (hr/min): 10 Billed Treatment Time 1 visit-ADL 1 (10 min) NATHAN BURT Jul 15, 2021 09:44
--- NOTE | 2021-07-15 10:42 | Cardiology Progress Note ---
Progress Note-Cardiology Events since last exam Date Seen by Provider: Jul 15, 2021 Time Seen by Provider: 10:37 Events since last exam I am following her due to heart failure. She received a blood transfusion on 07/14. I stopped her intravenous fluids on 1223. She also received IV Lasix on 07/14 following the blood transfusion. Today she denies shortness of breath. She denies chest discomfort, palpitations, syncope, or ankle edema. Certain portions of this document may have been dictated utilizing voice r ecognition technology. Inherent to this technology, typographical and grammatical errors may exist. As much as I am diligent to identify and correct these mistakes, some errors may remain in the document. Vitals Last set of Vitals Signs Vital Signs Labs Labs Laboratory Tests 07/15/21 05:24 Exam Vital Signs Vital Signs Date Time Temp Pulse Resp B/P (MAP) Pulse Ox O2 Delivery O2 Flow Rate FiO2 07/15/21 08:00 36.3 89 20 139/69 (92) 92 Nasal Cannula 2.00 Physical Exam General: Alert. No acute distress. Eye: No xanthelasma. HENT: Normocephalic. Neck: Jugular venous pressure does not appear elevated. Respiratory: Lungs are clear to auscultation. Respirations are non-labored. Breath sounds are equal. Symmetrical chest wall expansion. Cardiovascular: Normal rate. Regular rhythm. No murmur. No gallop. No edema. Gastrointestinal: Soft. Normal bowel sounds. Skin: Warm. Dry. Neurologic: Alert and oriented to person, place, time. Cranial nerves 3-11 grossly intact. Psychiatric: Cooperative. Appropriate mood & affect. Labs Laboratory Tests Test 07/15/21 05:24 Range/Units White Blood Count 5.3 4.3-11.0 10^3/uL Red Blood Count 2.97 L 3.80-5.11 10^6/uL Hemoglobin 8.9 #L 11.5-16.0 g/dL Hematocrit 28 L 35-52 % Mean Corpuscular Volume 94 80-99 fL Mean Corpuscular Hemoglobin 30 25-34 pg Mean Corpuscular Hemoglobin Concent 32 32-36 g/dL Red Cell Distribution Width 15.9 H 10.0-14.5 % Platelet Count 113 L 130-400 10^3/uL Mean Platelet Volume 11.4 9.0-12.2 fL Immature Granulocyte % (Auto) 1 % Neutrophils (%) (Auto) 66 42-75 % Lymphocytes (%) (Auto) 20 12-44 % Monocytes (%) (Auto) 10 0-12 % Eosinophils (%) (Auto) 3 0-10 % Basophils (%) (Auto) 1 0-10 % Neutrophils # (Auto) 3.5 1.8-7.8 10^3/uL Lymphocytes # (Auto) 1.1 1.0-4.0 10^3/uL Monocytes # (Auto) 0.5 0.0-1.0 10^3/uL Eosinophils # (Auto) 0.1 0.0-0.3 10^3/uL Basophils # (Auto) 0.0 0.0-0.1 10^3/uL Immature Granulocyte # (Auto) 0.0 0.0-0.1 10^3/uL Percent Immature Platelet Fraction 4.7 0.0-7.6 % Sodium Level 137 135-145 MMOL/L Potassium Level 4.0 3.6-5.0 MMOL/L Chloride Level 106 98-107 MMOL/L Carbon Dioxide Level 23 21-32 MMOL/L Anion Gap 8 5-14 MMOL/L Blood Urea Nitrogen 22 H 7-18 MG/DL Creatinine 1.01 0.60-1.30 MG/DL Estimat Glomerular Filtration Rate 52 BUN/Creatinine Ratio 22 Glucose Level 111 H 70-105 MG/DL Calcium Level 8.4 L 8.5-10.1 MG/DL Corrected Calcium 9.4 8.5-10.1 MG/DL Total Bilirubin 0.6 0.1-1.0 MG/DL Aspartate Amino Transf (AST/SGOT) 30 5-34 U/L Alanine Aminotransferase (ALT/SGPT) 11 0-55 U/L Alkaline Phosphatase 85 40-136 U/L Total Protein 6.9 6.4-8.2 GM/DL Albumin 2.8 L 3.2-4.5 GM/DL Diagnosis/Problems Diagnosis/Problems (1) Acute on chronic systolic heart failure Assessment & Plan: Her chest x-ray from today was about the same as the previous but certainly no worsening signs of pulmonary congestion. Clinically, she seems to be doing well today. Continue lisinopril and metoprolol succinate as tolerated by blood pressure. These have been intermittently held due to low blood pressure. However, her blood pressure is improved today. (2) Cardiomyopathy Assessment & Plan: She had mild left ventricular systolic dysfunction on her most recent echocardiogram. She is on metoprolol succinate and lisinopril which should be continued as long as her blood pressure tolerates. If her blood pressure continues to remain low, we may need to decrease the dose of both medications. (3) Coronary artery disease without angina pectoris Assessment & Plan: She has a history of coronary artery disease but is not having any angina at the present time. Continue aspirin, beta-amy, and statin medication. (4) Primary hypertension Assessment & Plan: As above, blood pressures are improved today. Continue metoprolol and lisinopril. (5) Mixed hyperlipidemia Assessment & Plan: Continue atorvastatin. SHARATH JORDAN JR, MD Jul 15, 2021 10:42
--- NOTE | 2021-07-15 10:45 | Progress Note - Ortho ---
Progress Note Subjective Date of Exam 07/15/21 Chief Complaint POD#3 Cemented bipolar hemiarthroplasty for a displaced subcapital fracture left hip HPI/Events since last exam Mrs. Su is 3 days postop cemented bipolar hemiarthroplasty left hip for displaced subcapital fracture. She had 2 units of packed red blood cells yesterday. She states she is feeling fine. She is up sitting in the chair. She has been up ambulating with a walker. Therapy states she did very well today. Review of Systems Reviewed and no additions or change Allergies: Coded Allergies: cortisone (Verified Allergy, Unknown, 01/30/07) diphenhydramine (Verified Allergy, Unknown, 01/30/07) penicillin G (Verified Allergy, Unknown, 07/12/21) The patient is unaware that she has a penicillin allergy. She does not remember ever taking it and if she did what the reaction was. It has not been recently. Home Meds Reported Medications Furosemide (Furosemide) 20 Mg Tablet, 20 MG PO DAILY, TAB 07/12/21 Paroxetine HCl (Paroxetine HCl) 40 Mg Tablet, 40 MG PO HS, TAB 07/12/21 Trazodone HCl (Trazodone HCl) 50 Mg Tablet, 50 MG PO HS PRN for SLEEP, TAB 07/12/21 Atorvastatin Calcium (Atorvastatin Calcium) 20 Mg Tablet, 20 MG PO DAILY, TAB 07/12/21 Aspirin (Aspirin EC) 81 Mg Tablet.dr, 81 MG PO DAILY, TAB 10/22/20 Montelukast Sodium (Montelukast Sodium) 10 Mg Tablet, 10 MG PO HS, TAB 10/22/20 Lisinopril (Lisinopril) 40 Mg Tablet, 40 MG PO DAILY, TAB 10/22/20 Metoclopramide HCl (Metoclopramide HCl) 10 Mg Tablet, 10 MG PO BID, TAB 09/27/16 Cetirizine HCl (Cetirizine HCl) 10 Mg Tablet, 10 MG PO DAILY, TAB 09/27/16 Metoprolol Succinate (Metoprolol Succinate) 50 Mg Tab.er.24h, 50 MG PO DAILY, TAB LAST FILLED 01-26-2021 #90/90 DAY SUPPLY 09/27/16 Discontinued Reported Medications Tizanidine HCl (Tizanidine HCl) 2 Mg Capsule, 2 MG PO DAILY, CAP 11/18/20 Omeprazole (Omeprazole) 20 Mg Tab.rap.dr, 20 MG PO DAILY, EA 11/18/20 Methocarbamol (Methocarbamol) 750 Mg Tablet, 750 MG PO DAILY for Back Pain, TAB 11/18/20 Fluticasone Propionate (Flovent Hfa 110 mcg) 1 Ea Aero, 1 EA IH BID PRN for SHORTNESS OF BREATH, EA 10/22/20 Atorvastatin Calcium (Atorvastatin Calcium) 10 Mg Tablet, 10 MG PO DAILY, TAB 10/22/20 Hydrocodone/Acetaminophen (Hydrocodone-Acetamin 5-325 mg) 1 Each Tablet, 1 EA PO BID PRN for PAIN-MODERATE (5-7), TAB 10/22/20 Paroxetine HCl (Paroxetine HCl) 20 Mg Tablet, 20 MG PO DAILY, TAB 09/27/16 Discontinued Scripts Triamcinolone Acet (Triamcinolone Acetonide 0.1% Cream) 15 Gm Cr, 0 GM TOP BID PRN for ITCHING AND RASH, #1 TUBE Prov:MAE LENTZ DO 10/25/20 Pantoprazole Sodium (Pantoprazole Sodium) 40 Mg Tablet., 40 MG PO DAILY, #30 TAB Prov:MAE LENTZ DO 10/25/20 Furosemide (Furosemide) 20 Mg Tablet, 20 MG PO BID@, #60 TAB Prov:MAE LENTZ DO 10/25/20 Objective Exam Constitutional: [] HEENT: [] Neck: [] Cardiovascular: [] Respiratory: [] Gastrointestinal: [] Genitourinary: [] Skin: [] Back/Spine: [] Extremities: [Dressing is intact and there is some bloody drainage on the dressing. No calf tenderness negative Homans. Good strength in dorsiflexion plantarflexion of the foot and ankle without pain. Normal sensation of the foot and toes with good cap refill. Equal pulses.] Neurologic: [] Psychiatric: [] Hematologic/lymphatic/immunologic: [] Vital Signs Vital Signs Date Time Temp Pulse Resp B/P (MAP) Pulse Ox O2 Delivery O2 Flow Rate FiO2 07/15/21 08:00 36.3 89 20 139/69 (92) 92 Nasal Cannula 2.00 07/15/21 08:00 92 Nasal Cannula 2.00 07/15/21 07:11 Nasal Cannula 2.00 07/15/21 07:07 96 Nasal Cannula 3.00 07/15/21 04:54 36.0 84 20 147/78 (101) 95 Nasal Cannula 3.00 07/14/21 23:30 36.0 94 20 147/81 (103) 95 Nasal Cannula 3.00 07/14/21 21:02 93 Nasal Cannula 3.00 07/14/21 20:20 Nasal Cannula 3.00 07/14/21 20:00 35.9 90 16 136/70 (92) 93 Nasal Cannula 3.00 07/14/21 18:11 36.7 98 20 137/76 93 Nasal Cannula 3.00 07/14/21 16:09 36.4 98 18 113/73 (86) 93 Nasal Cannula 3.00 07/14/21 15:15 37.3 97 22 134/76 93 Nasal Cannula 3.00 07/14/21 14:55 36.9 96 20 154/74 96 Nasal Cannula 3.00 07/14/21 14:04 93 Nasal Cannula 3.00 07/14/21 13:58 36.3 95 20 145/85 (105) 90 Nasal Cannula 3.00 07/14/21 11:34 36.7 78 18 99/65 (76) 94 Nasal Cannula 3.00 I & O 07/15/21 07:00 Intake Total 1360 ml Output Total 2475 ml Balance -1115 ml Lab Results Laboratory Tests 07/15/21 05:24: White Blood Count 5.3, Red Blood Count 2.97L, Hemoglobin 8.9#L, Hematocrit 28L, Mean Corpuscular Volume 94, Mean Corpuscular Hemoglobin 30, Mean Corpuscular Hemoglobin Concent 32, Red Cell Distribution Width 15.9H, Platelet Count 113L, Mean Platelet Volume 11.4, Immature Granulocyte % (Auto) 1, Neutrophils (%) (Auto) 66, Lymphocytes (%) (Auto) 20, Monocytes (%) (Auto) 10, Eosinophils (%) (Auto) 3, Basophils (%) (Auto) 1, Neutrophils # (Auto) 3.5, Lymphocytes # (Auto) 1.1, Monocytes # (Auto) 0.5, Eosinophils # (Auto) 0.1, Basophils # (Auto) 0.0, Immature Granulocyte # (Auto) 0.0, Percent Immature Platelet Fraction 4.7, Sodium Level 137, Potassium Level 4.0, Chloride Level 106, Carbon Dioxide Level 23, Anion Gap 8, Blood Urea Nitrogen 22H, Creatinine 1.01, Estimat Glomerular Filtration Rate 52, BUN/Creatinine Ratio 22, Glucose Level 111H, Calcium Level 8.4L, Corrected Calcium 9.4, Total Bilirubin 0.6, Aspartate Amino Transf (AST/SGOT) 30, Alanine Aminotransferase (ALT/SGPT) 11, Alkaline Phosphatase 85, Total Protein 6.9, Albumin 2.8L Microbiology 07/12/21 MRSA Screen - Final, Complete MRSA not isolated 07/12/21 Urine Culture - Final, Complete Escherichia coli Assessment and Plan Assessment Doing well postop day #3. Hemoglobin 8.9 after 2 units of packed red blood cells Problem List Unchanged Plan Continue physical therapy walker ambulation weightbearing as tolerated on the left. Dressing change tomorrow. Final Diagonsis Displaced subcapital fracture left hip status post cemented bipolar hemiarthroplasty Level of the visit: Level 3 Clinical Quality Measures DVT/VTE Risk/Contraindication: Contraindications-Pharm: Pt at low risk Other: or MEIR CUMMINGS MD Jul 15, 2021 10:45
[2021-07-15 12:00] VITALS: BP 145/79
[2021-07-15] MEDS: IRON SUCROSE 200 MG/10 ML (VENOFER) VIAL IV SCH (12:20)
[2021-07-15] MEDS ORDERED: BISACODYL 10 MG SUPP (DULCOLAX) PR PRN (12:30)
[2021-07-15] MEDS ORDERED: BISACODYL 10 MG SUPP (DULCOLAX) PR NR (12:45)
--- NOTE | 2021-07-15 13:33 | Physical Therapy Daily Note ---
PT Daily Note-Current Subjective Patient in recliner pre tx, agrees to PT, has 10/10 pain, nurse notified, patient is very drowsy. Appearance Patient in bed post tx with nurse call, phone, tray, SCD's, abduction pillow. Mental Status Patient Orientation: Person, Place, Situation Attachments: Oxygen, Tucker Catheter Transfers SCALE: Activities may be completed with or without assistive devices. 1-Xrlfofajdu-ogoakgd completes the activity by him/herself with no assistance from a helper. 5-Set-up or Clean-up Assistance-helper sets up or cleans up; patient completes activity. [place] assists only prior to or following the activity. 4-Supervision or Touching Assistance-helper provides verbal cues and/or touching/steadying and/or contact guard assistance as patient completes activity. Assistance may be provided throughout the activity or intermittently. 3-Partial/Moderate Assistance-helper does LESS THAN HALF the effort. [place] lifts, holds or supports trunk or limbs, but provides less than half the effort. 2-Substantial/Maximal Assistance-helper does MORE THAN HALF the effort. [place] lifts or holds trunk or limbs and provides more than half the effort. 4-Pbqrhqjmz-avfulg does ALL the effort. Patient does none of the effort to complete the activity. Or, the assistance of 2 or more helpers is required for the patient to complete the activity. If activity was not attempted, code reason: 7-Patient Refused. 9-Not Applicable-not attempted and the patient did not perform the activity before the current illness, exacerbation or injury. 10-Not Attempted due to Environmental Limitations-(lack of equipment, weather restraints, etc.). 88-Not Attempted due to Medical Conditions or Safety Concerns. Roll Left & Right (QC): 3 Sit to Lying (QC): 3 Sit to Stand (QC): 3 Chair/Wio-io-Apwxw Xfer(QC): 3 Patient stands from the recliner with min assist, she is only able to ambulate a couple of feet forward before saying that she has too much pain and would like to get back to bed. Patient is very unsteady and starts to sit while there is nothing behind her, therapist keeps her up and cues her to step back to the bed, she does so with assist but is very unsteady. She gets back to the bed, sits, and then needs min assist for sit to supine and then to scoot up in bed. Weight Bearing Right Lower Extremity: Right Full Weight Bearing Left Lower Extremity: Left Weight Bearing/Tolerated Exercises Supine Ex: Ankle pumps, Quad Set, Glut sets, Heel Slides, Hip abd/add Supine Reps: 15 Treatments transfers, bed mobility, LE strengthening Assessment Current Status: Poor Progress Patient ambulated much better this morning but she also had severe pain this afternoon. PT Shelter Goals [employer] Assistant Goals PT Shelter Goals Time Frame: Jul 20, 2021 Roll Left & Right (QC): 6 Sit to Lying (QC): 4 Lying-Sitting on Side/Bed(QC): 4 Sit to Stand (QC): 4 Chair/Eml-tc-Gbcxy Xfer(QC): 4 Walk 10 feet (QC): 4 Walk 50ft with 2 Turns (QC): 4 PT Plan Problem List Problem List: Activity Tolerance, Functional Strength, Safety, Balance, Gait, Transfer, Bed Mobility, ROM Treatment/Plan Treatment Plan: Continue Plan of Care Treatment Plan: Bed Mobility, Education, Functional Activity Josh, Functional Strength, Gait, Safety, Therapeutic Exercise, Transfers Treatment Duration: Jul 20, 2021 Frequency: 11 times per week Estimated Hrs Per Day: .25 hour per day Patient and/or Family Agrees t: Yes Safety Risks/Education Patient Education: Gait Training, Transfer Techniques, Correct Positioning, Safety Issues Teaching Recipient: Patient Teaching Methods: Demonstration, Discussion Response to Teaching: Reinforcement Needed Time/GCodes Time In: 1300 Time Out: 1317 Total Billed Treatment Time: 17 Total Billed Treatment 1 visit FA YUE BARKSDALE PT Jul 15, 2021 13:33
[2021-07-15] MEDS ORDERED: FUROSEMIDE 40 MG/4 ML INJ (LASIX) IVP NR (15:45)
[2021-07-15 16:00] VITALS: BP 177/78
[2021-07-15 16:17] LABS: ABG BASE EXCESS 1.4 MMOL/L (-2.5-2.5); ABG OXYGEN SATURATION 99 % (94-100); ABG PCO2 46 MMHG (35-45); ABG PH 7.37 (7.37-7.43); ABG PO2 113 MMHG (79-93); ABG TCO2 27.5 MMOL/L (21.0-31.0); ALLENS TEST YES-POS; INSPIRED O2 4L; PATIENT TEMP 93; VENTILATOR NO
--- NOTE | 2021-07-15 16:26 | Diagnostic Imaging Report ---
INDICATION: Low O2 saturation. Cough and dyspnea. EXAMINATION: Chest, 07/15/2021. COMPARISON: 07/15/2021 at 6:26 a.m. FINDINGS: There is prominence of the heart. The pulmonary vasculature is slightly congested. Mild coarsened markings throughout the lungs likely due to edema. There is an infiltrate at the left lung base with adjacent pleural fluid. There is no pneumothorax. IMPRESSION: 1. Pulmonary edema. 2. Left base infiltrate and small effusion. Dictated by: Dictated on workstation # [id number]
[2021-07-15 16:45] LABS: ALBUMIN 2.8 GM/DL (3.2-4.5)
[2021-07-15 16:46] LABS: BASOPHILS % (AUTO) 1 % (0-10); EOSINOPHILS # (AUTO) 0.1 10^3/uL (0.0-0.3); EOSINOPHILS % (AUTO) 2 % (0-10); HEMATOCRIT 27 % (35-52); HEMOGLOBIN 8.8 g/dL (11.5-16.0); LYMPHOCYTES # (AUTO) 0.9 X 10^3 (1.0-4.0); LYMPHOCYTES % (AUTO) 17 % (12-44); MEAN CORPUSCULAR HEMOGLOBIN 31 pg (25-34); MEAN CORPUSCULAR HGB CONC 33 g/dL (32-36); MEAN CORPUSCULAR VOLUME 94 fL (80-99); MONOCYTES # (AUTO) 0.6 X 10^3 (0.0-1.0); MONOCYTES % (AUTO) 10 % (0-12); NEUTROPHILS # (AUTO) 3.7 X 10^3 (1.8-7.8); NEUTROPHILS % (AUTO) 69 % (42-75); PLATELET COUNT 125 10^3/uL (130-400); POTASSIUM 4.2 MMOL/L (3.6-5.0); WHITE BLOOD COUNT 5.4 10^3/uL (4.3-11.0)
[2021-07-15 16:47] LABS: CALCIUM 8.4 MG/DL (8.5-10.1)
[2021-07-15 16:48] LABS: TOTAL PROTEIN 7.1 GM/DL (6.4-8.2)
[2021-07-15 16:50] LABS: BILIRUBIN,TOTAL 0.5 MG/DL (0.1-1.0)
[2021-07-15 16:52] LABS: CREATININE SERUM 0.79 MG/DL (0.60-1.30)
[2021-07-15] MEDS ORDERED: RT-ALBUTEROL/IPRATROPIUM 3 ML (DUONEB) VIAL INH SCH (18:00)
[2021-07-15] MEDS ORDERED: CEFEPIME 1 GM/10 ML (MAXIPIME) VIAL ONE (18:39)
[2021-07-15] MEDS ORDERED: NS (IVPB) 50 ML ONE (18:39)
[2021-07-15] MEDS: CEFEPIME INJECTION 1,000 MG in NS (IVPB) 50 ML IV SCH (18:45)
[2021-07-15 19:50] VITALS: BP 153/77
[2021-07-15] MEDS: MONTELUKAST 10 MG (SINGULAIR) TAB PO SCH (20:43)
[2021-07-15] MEDS: PARoxetine 20 MG (PAXIL) TAB PO SCH (20:43)
[2021-07-16] MEDS: CEFEPIME INJECTION 1,000 MG in NS (IVPB) 50 ML IV SCH ×4 (00:12→18:17)
[2021-07-16 00:38] VITALS: BP 162/80
[2021-07-16 04:00] VITALS: BP 178/84
[2021-07-16 05:25] LABS: BASOPHILS % (AUTO) 1 % (0-10); EOSINOPHILS # (AUTO) 0.1 10^3/uL (0.0-0.3); EOSINOPHILS % (AUTO) 2 % (0-10); HEMATOCRIT 29 % (35-52); HEMOGLOBIN 9.3 g/dL (11.5-16.0); LYMPHOCYTES # (AUTO) 0.9 10^3/uL (1.0-4.0); LYMPHOCYTES % (AUTO) 18 % (12-44); MEAN CORPUSCULAR HEMOGLOBIN 30 pg (25-34); MEAN CORPUSCULAR HGB CONC 32 g/dL (32-36); MEAN CORPUSCULAR VOLUME 94 fL (80-99); MEAN PLATELET VOLUME 10.8 fL (9.0-12.2); MONOCYTES # (AUTO) 0.5 10^3/uL (0.0-1.0); MONOCYTES % (AUTO) 11 % (0-12); NEUTROPHILS # (AUTO) 3.3 10^3/uL (1.8-7.8); NEUTROPHILS % (AUTO) 67 % (42-75); PLATELET COUNT 139 10^3/uL (130-400); WHITE BLOOD COUNT 4.9 10^3/uL (4.3-11.0)
[2021-07-16 06:03] LABS: ALBUMIN 2.8 GM/DL (3.2-4.5); POTASSIUM 3.7 MMOL/L (3.6-5.0)
[2021-07-16 06:04] LABS: CALCIUM 8.7 MG/DL (8.5-10.1)
--- NOTE | 2021-07-16 06:04 | Progress Note - Hospitalist ---
Subjective HPI/CC On Admission Date Seen by Provider: Jul 16, 2021 Time Seen by Provider: 09:45 CC: Left femoral neck fracture HPI: This is a [facility] patient who lives with her son and [id number] who fell on the floor and suffered a left femoral neck fracture. Pt is very frail but appears to meet criteria for repair. Benefits outweigh the medical risk in my opinion. I have checked meds and labs and I have consulted cardiology and echocardiogram will be obtained to evaluate the systolic dysfunction that was seen on prior exam. Subjective/Events-last exam Patient doing about the same Placed on antibiotic for early pneumonia yesterday Hypoxia resolved but needing supplemental oxygen Noncompliant with incentive spirometer Check meds labs Review of Systems General: Fatigue, Malaise Gastrointestinal: Constipation Musculoskeletal: leg pain Focused Exam Lactate Level 07/15/21 16:24: Lactic Acid Level 0.90 Objective Exam Vital Signs Vital Signs Date Time Temp Pulse Resp B/P (MAP) Pulse Ox O2 Delivery O2 Flow Rate FiO2 07/16/21 15:28 96 Nasal Cannula 4.00 07/16/21 15:15 36.3 90 20 137/85 (102) Capillary Refill : Less Than 3 SecondsLess Than 3 Seconds General Appearance: No Apparent Distress, WD/WN, Anxious, Chronically ill Respiratory: No Accessory Muscle Use, No Respiratory Distress, Decreased Breath Sounds Cardiovascular: Regular Rate, Rhythm Neurologic/Psychiatric: Alert, Oriented x3 Results/Procedures Lab Laboratory Tests 07/16/21 04:50 Patient resulted labs reviewed. Assessment/Plan Assessment and Plan Assess & Plan/Chief Complaint Assessment: L hip Fracture status post uncomplicated repair by Dr. Ledesma UTI on Rocephin Systolic congestive heart failure ejection fraction 40% Hypertension Decreased urinary output Acute kidney insufficiency Acute blood loss anemia requiring 2 units of transfusion Plan: Pain control Increase IV fluids Supportive care 07/14/2021: Transfuse PT and OT 07/15/2021: Septic work-up Check chest x-ray again today Lasix 40 mg x 1 07/16/2021: Antibiotics Diuresis Oxygen Clinical Quality Measures DVT/VTE Risk/Contraindication: Contraindications-Pharm: Pt at low risk Other: or MAE LENTZ DO Jul 16, 2021 06:04
[2021-07-16 06:05] LABS: TOTAL PROTEIN 7.1 GM/DL (6.4-8.2)
[2021-07-16 06:07] LABS: BILIRUBIN,TOTAL 0.6 MG/DL (0.1-1.0)
[2021-07-16 06:09] LABS: CREATININE SERUM 0.73 MG/DL (0.60-1.30)
[2021-07-16] MEDS: ENOXAPARIN 40 MG/0.4 ML (LOVENOX) SYR SC SCH (06:33)
[2021-07-16 07:29] VITALS: BP 165/83
[2021-07-16] MEDS: RT-ALBUTEROL SULF 2.5 MG/3 ML PRE-MIX VIAL INH SCH ×3 (07:58→21:12)
--- NOTE | 2021-07-16 08:32 | Diagnostic Imaging Report ---
Indication: Lower respiratory infection Portable chest 8:24 AM Heart size and pulmonary vascularity are normal. Lungs are clear. There are no effusions or pneumothoraces. IMPRESSION: No acute abnormalities in the chest Dictated by: Dictated on workstation # [id number]
[2021-07-16] MEDS: polyethylene glycoL POWDER 17 GM (MIRALAX) PACK PO SCH ×2 (09:23→20:54)
[2021-07-16] MEDS: METOCLOPRAMIDE 10 MG (REGLAN) TAB PO SCH ×2 (09:23→20:55)
[2021-07-16] MEDS: SENNA W/DOCUSATE (SENOKOT S) TABLET PO SCH ×2 (09:23→20:54)
[2021-07-16] MEDS: meTOproloL SUCCINATE 50 MG (TOPROL XL) TAB PO SCH ×2 (09:23→09:26)
[2021-07-16] MEDS: lisINopril 20 MG (PRINIVIL) TABLET PO SCH (09:24)
[2021-07-16] MEDS: ASPIRIN E.C. 81 MG (ECOTRIN) TAB PO SCH (09:24)
[2021-07-16] MEDS: LORATADINE (CLARITIN) 10 MG TAB PO SCH (09:27)
--- NOTE | 2021-07-16 11:07 | Progress Note - Ortho ---
Progress Note Subjective Date of Exam 07/16/21 Chief Complaint POD#4 Cemented bipolar hemiarthroplasty left hip for displaced Subcapital fracture HPI/Events since last exam Mrs. Su is 4 days postop cemented bipolar hemiarthroplasty left hip for displaced subcapital fracture. When I saw her she was up sitting in the chair. She states she was very comfortable with minimal hip pain. She had been up ambulating with a walker with physical therapy. No other complaints. Review of Systems Reviewed and no additions or change Allergies: Coded Allergies: cortisone (Verified Allergy, Unknown, 01/30/07) diphenhydramine (Verified Allergy, Unknown, 01/30/07) penicillin G (Verified Allergy, Unknown, 07/12/21) The patient is unaware that she has a penicillin allergy. She does not remember ever taking it and if she did what the reaction was. It has not been recently. Home Meds Reported Medications Furosemide (Furosemide) 20 Mg Tablet, 20 MG PO DAILY, TAB 07/12/21 Paroxetine HCl (Paroxetine HCl) 40 Mg Tablet, 40 MG PO HS, TAB 07/12/21 Trazodone HCl (Trazodone HCl) 50 Mg Tablet, 50 MG PO HS PRN for SLEEP, TAB 07/12/21 Atorvastatin Calcium (Atorvastatin Calcium) 20 Mg Tablet, 20 MG PO DAILY, TAB 07/12/21 Aspirin (Aspirin EC) 81 Mg Tablet.dr, 81 MG PO DAILY, TAB 10/22/20 Montelukast Sodium (Montelukast Sodium) 10 Mg Tablet, 10 MG PO HS, TAB 10/22/20 Lisinopril (Lisinopril) 40 Mg Tablet, 40 MG PO DAILY, TAB 10/22/20 Metoclopramide HCl (Metoclopramide HCl) 10 Mg Tablet, 10 MG PO BID, TAB 09/27/16 Cetirizine HCl (Cetirizine HCl) 10 Mg Tablet, 10 MG PO DAILY, TAB 09/27/16 Metoprolol Succinate (Metoprolol Succinate) 50 Mg Tab.er.24h, 50 MG PO DAILY, TAB LAST FILLED 01-26-2021 #90/90 DAY SUPPLY 09/27/16 Discontinued Reported Medications Tizanidine HCl (Tizanidine HCl) 2 Mg Capsule, 2 MG PO DAILY, CAP 11/18/20 Omeprazole (Omeprazole) 20 Mg Tab.rap.dr, 20 MG PO DAILY, EA 11/18/20 Methocarbamol (Methocarbamol) 750 Mg Tablet, 750 MG PO DAILY for Back Pain, TAB 11/18/20 Fluticasone Propionate (Flovent Hfa 110 mcg) 1 Ea Aero, 1 EA IH BID PRN for SHORTNESS OF BREATH, EA 10/22/20 Atorvastatin Calcium (Atorvastatin Calcium) 10 Mg Tablet, 10 MG PO DAILY, TAB 10/22/20 Hydrocodone/Acetaminophen (Hydrocodone-Acetamin 5-325 mg) 1 Each Tablet, 1 EA PO BID PRN for PAIN-MODERATE (5-7), TAB 10/22/20 Paroxetine HCl (Paroxetine HCl) 20 Mg Tablet, 20 MG PO DAILY, TAB 09/27/16 Discontinued Scripts Triamcinolone Acet (Triamcinolone Acetonide 0.1% Cream) 15 Gm Cr, 0 GM TOP BID PRN for ITCHING AND RASH, #1 TUBE Prov:MAE LENTZ DO 10/25/20 Pantoprazole Sodium (Pantoprazole Sodium) 40 Mg Tablet.dr, 40 MG PO DAILY, #30 TAB Prov:MAE LENTZ DO 10/25/20 Furosemide (Furosemide) 20 Mg Tablet, 20 MG PO BID@, #60 TAB Prov:MAE LENTZ DO 10/25/20 Objective Exam Constitutional: [] HEENT: [] Neck: [] Cardiovascular: [] Respiratory: [] Gastrointestinal: [] Genitourinary: [] Skin: [] Back/Spine: [] Extremities: [Dressing is intact. No appreciable swelling left thigh. No knee pain or ankle pain. Good motion of the ankle with dorsiflexion plantarflexion of foot and ankle without pain and good strength. Normal sensation of the foot and toes with good cap refill. Good position of the left leg compared to the right. No calf tenderness negative Homans] Neurologic: [] Psychiatric: [] Hematologic/lymphatic/immunologic: [] Vital Signs Vital Signs Date Time Temp Pulse Resp B/P (MAP) Pulse Ox O2 Delivery O2 Flow Rate FiO2 07/16/21 08:30 Nasal Cannula 5.00 07/16/21 08:01 98 Nasal Cannula 4.00 07/16/21 07:29 36.5 94 20 165/83 (110) 97 Nasal Cannula 4.00 07/16/21 04:00 35.8 96 20 178/84 (115) 96 OxyMask 4.00 07/16/21 00:38 36.0 88 18 162/80 (107) 95 OxyMask 4.00 07/15/21 21:59 95 Nasal Cannula 4.00 07/15/21 20:00 Nasal Cannula 4.00 07/15/21 19:50 35.9 97 18 153/77 (102) 95 OxyMask 4.00 07/15/21 16:19 96 OxyMask 4.00 07/15/21 16:00 36.2 88 18 177/78 (111) 100 OxyMask 4.00 07/15/21 12:00 36.0 75 18 145/79 (101) 95 Nasal Cannula 2.00 I & O 07/16/21 07:00 Intake Total 1050 ml Output Total 2950 ml Balance -1900 ml Lab Results Laboratory Tests 07/15/21 16:10: Blood Gas Puncture Site LEFT RADIAL, Blood Gas Patient Temperature 93, Arterial Blood pH 7.37, Arterial Blood Partial Pressure CO2 46H, Arterial Blood Partial Pressure O2 113H, Arterial Blood HCO3 26, Arterial Blood Total CO2 27.5, Arterial Blood Oxygen Saturation 99, Arterial Blood Base Excess 1.4, Iam Test YES-POS, Blood Gas Ventilator Setting NO, Blood Gas Inspired Oxygen 4L 07/15/21 16:24: White Blood Count 5.4, Red Blood Count 2.85L, Hemoglobin 8.8L, Hematocrit 27L, Mean Corpuscular Volume 94, Mean Corpuscular Hemoglobin 31, Mean Corpuscular Hemoglobin Concent 33, Red Cell Distribution Width 16.1H, Platelet Count 125L, Mean Platelet Volume 11.0, Immature Granulocyte % (Auto) 0, Neutrophils (%) (Auto) 69, Lymphocytes (%) (Auto) 17, Monocytes (%) (Auto) 10, Eosinophils (%) (Auto) 2, Basophils (%) (Auto) 1, Neutrophils # (Auto) 3.7, Lymphocytes # (Auto) 0.9L, Monocytes # (Auto) 0.6, Eosinophils # (Auto) 0.1, Basophils # (Auto) 0.0, Immature Granulocyte # (Auto) 0.0, Sodium Level 135, Potassium Level 4.2, Chloride Level 103, Carbon Dioxide Level 22, Anion Gap 10, Blood Urea Nitrogen 19H, Creatinine 0.79, Estimat Glomerular Filtration Rate 70, BUN/Creatinine Ratio 24, Glucose Level 110H, Lactic Acid Level 0.90, Calcium Level 8.4L, Corrected Calcium 9.4, Total Bilirubin 0.5, Aspartate Amino Transf (AST/SGOT) 31, Alanine Aminotransferase (ALT/SGPT) 9, Alkaline Phosphatase 74, B-Type Natriuretic Peptide 763.1H, Total Protein 7.1, Albumin 2.8L, Procalcitonin 0.19H 07/16/21 04:50: White Blood Count 4.9, Red Blood Count 3.11L, Hemoglobin 9.3L, Hematocrit 29L, Mean Corpuscular Volume 94, Mean Corpuscular Hemoglobin 30, Mean Corpuscular Hemoglobin Concent 32, Red Cell Distribution Width 15.4H, Platelet Count 139, Mean Platelet Volume 10.8, Immature Granulocyte % (Auto) 1, Neutrophils (%) (Auto) 67, Lymphocytes (%) (Auto) 18, Monocytes (%) (Auto) 11, Eosinophils (%) (Auto) 2, Basophils (%) (Auto) 1, Neutrophils # (Auto) 3.3, Lymphocytes # (Auto) 0.9L, Monocytes # (Auto) 0.5, Eosinophils # (Auto) 0.1, Basophils # (Auto) 0.0, Immature Granulocyte # (Auto) 0.0, Sodium Level 138, Potassium Level 3.7, Chloride Level 102, Carbon Dioxide Level 26, Anion Gap 10, Blood Urea Nitrogen 17, Creatinine 0.73, Estimat Glomerular Filtration Rate 76, BUN/Creatinine Ratio 23, Glucose Level 117H, Calcium Level 8.7, Corrected Calcium 9.7, Total Bilirubin 0.6, Aspartate Amino Transf (AST/SGOT) 31, Alanine Aminotransferase (ALT/SGPT) 8, Alkaline Phosphatase 73, Total Protein 7.1, Albumin 2.8L Microbiology 07/12/21 MRSA Screen - Final, Complete MRSA not isolated 07/12/21 Urine Culture - Final, Complete Escherichia coli Assessment and Plan Assessment Doing well 4 days postop Problem List Unchanged Plan Continue physical therapy walker ambulation weight-bear as tolerated on the left Final Diagonsis Displaced subcapital fracture left hip status post cemented bipolar hemiarthroplasty Level of the visit: Level 3 Focused Exam Lactate Level 07/15/21 16:24: Lactic Acid Level 0.90 Clinical Quality Measures DVT/VTE Risk/Contraindication: Contraindications-Pharm: Pt at low risk Other: or MEIR CUMMINGS MD Jul 16, 2021 11:07
[2021-07-16 11:11] VITALS: BP 123/70
--- NOTE | 2021-07-16 12:28 | Cardiology Progress Note ---
Progress Note-Cardiology Events since last exam Date Seen by Provider: Jul 16, 2021 Time Seen by Provider: 12:26 Events since last exam I am following her due to heart failure and cardiomyopathy. She was sitting up in a chair. She denies chest discomfort, dyspnea, palpitations, syncope, or ankle edema. Certain portions of this document may have been dictated utilizing voice recognition technology. Inherent to this technology, typographical and grammatical errors may exist. As much as I am diligent to identify and correct these mistakes, some errors may remain in the document. Vitals Last set of Vitals Signs Vital Signs 07/16/21 11:11 Temp 37.2 Pulse 90 Resp 20 B/P (MAP) 123/70 (87) Pulse Ox 94 O2 Delivery Nasal Cannula O2 Flow Rate 4.00 Labs Labs Laboratory Tests 07/15/21 16:24 07/16/21 04:50 Exam Vital Signs Vital Signs Date Time Temp Pulse Resp B/P (MAP) Pulse Ox O2 Delivery O2 Flow Rate FiO2 07/16/21 11:11 37.2 90 20 123/70 (87) 94 Nasal Cannula 4.00 Physical Exam General: Alert. No acute distress. Eye: No xanthelasma. HENT: Normocephalic. Neck: Jugular venous pressure does not appear elevated. Respiratory: Lungs are clear to auscultation. Respirations are non-labored. Breath sounds are equal. Symmetrical chest wall expansion. Cardiovascular: Normal rate. Regular rhythm. No murmur. No gallop. No edema. Gastrointestinal: Soft. Normal bowel sounds. Skin: Warm. Dry. Neurologic: Alert and oriented to person, place, time. Cranial nerves 3-11 grossly intact. Psychiatric: Cooperative. Appropriate mood & affect. Labs Laboratory Tests Test 07/15/21 16:10 07/15/21 16:24 07/16/21 04:50 Range/Units Blood Gas Puncture Site LEFT RADIAL Blood Gas Patient Temperature 93 Arterial Blood pH 7.37 7.37-7.43 Arterial Blood Partial Pressure CO2 46 H 35-45 MMHG Arterial Blood Partial Pressure O2 113 H 79-93 MMHG Arterial Blood HCO3 26 23-27 MMOL/L Arterial Blood Total CO2 27.5 21.0-31.0 MMOL/L Arterial Blood Oxygen Saturation 99 94-100 % Arterial Blood Base Excess 1.4 -2.5-2.5 MMOL/L Iam Test YES-POS Blood Gas Ventilator Setting NO Blood Gas Inspired Oxygen 4L White Blood Count 5.4 4.9 4.3-11.0 10^3/uL Red Blood Count 2.85 L 3.11 L 3.80-5.11 10^6/uL Hemoglobin 8.8 L 9.3 L 11.5-16.0 g/dL Hematocrit 27 L 29 L 35-52 % Mean Corpuscular Volume 94 94 80-99 fL Mean Corpuscular Hemoglobin 31 30 25-34 pg Mean Corpuscular Hemoglobin Concent 33 32 32-36 g/dL Red Cell Distribution Width 16.1 H 15.4 H 10.0-14.5 % Platelet Count 125 L 139 130-400 10^3/uL Mean Platelet Volume 11.0 10.8 9.0-12.2 fL Immature Granulocyte % (Auto) 0 1 % Neutrophils (%) (Auto) 69 67 42-75 % Lymphocytes (%) (Auto) 17 18 12-44 % Monocytes (%) (Auto) 10 11 0-12 % Eosinophils (%) (Auto) 2 2 0-10 % Basophils (%) (Auto) 1 1 0-10 % Neutrophils # (Auto) 3.7 3.3 1.8-7.8 10^3/uL Lymphocytes # (Auto) 0.9 L 0.9 L 1.0-4.0 10^3/uL Monocytes # (Auto) 0.6 0.5 0.0-1.0 10^3/uL Eosinophils # (Auto) 0.1 0.1 0.0-0.3 10^3/uL Basophils # (Auto) 0.0 0.0 0.0-0.1 10^3/uL Immature Granulocyte # (Auto) 0.0 0.0 0.0-0.1 10^3/uL Sodium Level 135 138 135-145 MMOL/L Potassium Level 4.2 3.7 3.6-5.0 MMOL/L Chloride Level 103 102 98-107 MMOL/L Carbon Dioxide Level 22 26 21-32 MMOL/L Anion Gap 10 10 5-14 MMOL/L Blood Urea Nitrogen 19 H 17 7-18 MG/DL Creatinine 0.79 0.73 0.60-1.30 MG/DL Estimat Glomerular Filtration Rate 70 76 BUN/Creatinine Ratio 24 23 Glucose Level 110 H 117 H 70-105 MG/DL Lactic Acid Level 0.90 0.50-2.00 MMOL/L Calcium Level 8.4 L 8.7 8.5-10.1 MG/DL Corrected Calcium 9.4 9.7 8.5-10.1 MG/DL Total Bilirubin 0.5 0.6 0.1-1.0 MG/DL Aspartate Amino Transf (AST/SGOT) 31 31 5-34 U/L Alanine Aminotransferase (ALT/SGPT) 9 8 0-55 U/L Alkaline Phosphatase 74 73 40-136 U/L B-Type Natriuretic Peptide 763.1 H <100.0 PG/ML Total Protein 7.1 7.1 6.4-8.2 GM/DL Albumin 2.8 L 2.8 L 3.2-4.5 GM/DL Procalcitonin 0.19 H <0.10 NG/ML Diagnosis/Problems Diagnosis/Problems (1) Acute on chronic systolic heart failure Assessment & Plan: Her chest x-ray from today was improved. Clinically, she seems to be doing well today. Continue lisinopril and metoprolol succinate as tolerated by blood pressure. These have been intermittently held due to low blood pressure. Her intravenous furosemide has been discontinued. I will place her back on her home dose of oral furosemide. (2) Cardiomyopathy Assessment & Plan: She had mild left ventricular systolic dysfunction on her most recent echocardiogram. She is on metoprolol succinate and lisinopril which should be continued as long as her blood pressure tolerates. Last evening her blood pressures were improved so she is getting her outpatient doses of both med ications. (3) Coronary artery disease without angina pectoris Assessment & Plan: She has a history of coronary artery disease but is not having any angina at the present time. Continue aspirin, beta-amy, and statin medication. (4) Primary hypertension Assessment & Plan: As above, blood pressures are improved today. Continue metoprolol and lisinopril. (5) Mixed hyperlipidemia Assessment & Plan: Continue atorvastatin. SHARATH JORDAN JR, MD Jul 16, 2021 12:28
[2021-07-16 15:15] VITALS: BP 137/85
[2021-07-16 20:10] VITALS: BP 162/82
[2021-07-16] MEDS: MONTELUKAST 10 MG (SINGULAIR) TAB PO SCH (20:55)
[2021-07-16] MEDS: PARoxetine 20 MG (PAXIL) TAB PO SCH (20:55)
[2021-07-17] VITALS: BP 168/90
[2021-07-17] MEDS: CEFEPIME INJECTION 1,000 MG in NS (IVPB) 50 ML IV SCH ×4 (00:30→21:54)
[2021-07-17 04:00] VITALS: BP 160/94
[2021-07-17] MEDS: ENOXAPARIN 40 MG/0.4 ML (LOVENOX) SYR SC SCH (06:10)
[2021-07-17 06:20] LABS: ALBUMIN 2.7 GM/DL (3.2-4.5); POTASSIUM 3.9 MMOL/L (3.6-5.0)
[2021-07-17 06:21] LABS: BASOPHILS % (AUTO) 1 % (0-10); EOSINOPHILS # (AUTO) 0.2 10^3/uL (0.0-0.3); EOSINOPHILS % (AUTO) 3 % (0-10); HEMATOCRIT 28 % (35-52); HEMOGLOBIN 8.8 g/dL (11.5-16.0); LYMPHOCYTES # (AUTO) 1.1 10^3/uL (1.0-4.0); LYMPHOCYTES % (AUTO) 22 % (12-44); MEAN CORPUSCULAR HEMOGLOBIN 30 pg (25-34); MEAN CORPUSCULAR HGB CONC 32 g/dL (32-36); MEAN CORPUSCULAR VOLUME 96 fL (80-99); MEAN PLATELET VOLUME 11.1 fL (9.0-12.2); MONOCYTES # (AUTO) 0.6 10^3/uL (0.0-1.0); MONOCYTES % (AUTO) 13 % (0-12); NEUTROPHILS # (AUTO) 2.9 10^3/uL (1.8-7.8); NEUTROPHILS % (AUTO) 61 % (42-75); PLATELET COUNT 154 10^3/uL (130-400); WHITE BLOOD COUNT 4.8 10^3/uL (4.3-11.0)
[2021-07-17 06:22] LABS: CALCIUM 8.5 MG/DL (8.5-10.1)
[2021-07-17 06:23] LABS: TOTAL PROTEIN 6.8 GM/DL (6.4-8.2)
[2021-07-17 06:25] LABS: BILIRUBIN,TOTAL 0.7 MG/DL (0.1-1.0)
[2021-07-17 06:27] LABS: CREATININE SERUM 0.78 MG/DL (0.60-1.30)
--- NOTE | 2021-07-17 06:56 | Progress Note - Hospitalist ---
Subjective HPI/CC On Admission Date Seen by Provider: Jul 17, 2021 Time Seen by Provider: 11:00 CC: Left femoral neck fracture HPI: This is a [facility] patient who lives with her son and [id number] who fell on the floor and suffered a left femoral neck fracture. Pt is very frail but appears to meet criteria for repair. Benefits outweigh the medical risk in my opinion. I have checked meds and labs and I have consulted cardiology and echocardiogram will be obtained to evaluate the systolic dysfunction that was seen on prior exam. Subjective/Events-last exam Patient doing well Decreased motivation Check labs Large bowel movement after laxatives Not using incentive spirometer Early pneumonia responding to cefepime Review of Systems General: Fatigue, Malaise Musculoskeletal: leg pain Focused Exam Lactate Level 07/15/21 16:24: Lactic Acid Level 0.90 Objective Exam Vital Signs Vital Signs Date Time Temp Pulse Resp B/P (MAP) Pulse Ox O2 Delivery O2 Flow Rate FiO2 07/17/21 15:41 35.5 84 19 132/72 (92) 96 Nasal Cannula 1.50 Capillary Refill : Less Than 3 SecondsLess Than 3 Seconds General Appearance: No Apparent Distress, WD/WN, Chronically ill Respiratory: Lungs Clear, Normal Breath Sounds, Decreased Breath Sounds Cardiovascular: Regular Rate, Rhythm Neurologic/Psychiatric: Alert, Oriented x3, No Motor/Sensory Deficits, Normal Mood/Affect Results/Procedures Lab Laboratory Tests 07/17/21 05:15 Patient resulted labs reviewed. Assessment/Plan Assessment and Plan Assess & Plan/Chief Complaint Assessment: L hip Fracture status post uncomplicated repair by Dr. Ledesma UTI on Rocephin Systolic congestive heart failure ejection fraction 40% Hypertension Decreased urinary output Acute kidney insufficiency Acute blood loss anemia requiring 2 units of transfusion Plan: Pain control Increase IV fluids Supportive care 07/14/2021: Transfuse PT and OT 07/15/2021: Septic work-up Check chest x-ray again today Lasix 40 mg x 1 07/16/2021: Antibiotics Diuresis Oxygen 07/17/2021: Supportive care Bowel regimen Clinical Quality Measures DVT/VTE Risk/Contraindication: Contraindications-Pharm: Pt at low risk Other: or MAE LENTZ DO Jul 17, 2021 06:56
[2021-07-17] MEDS: RT-ALBUTEROL SULF 2.5 MG/3 ML PRE-MIX VIAL INH SCH ×3 (06:59→21:36)
[2021-07-17] MEDS: IRON SUCROSE 200 MG/10 ML (VENOFER) VIAL IV SCH (08:33)
[2021-07-17] MEDS: METOCLOPRAMIDE 10 MG (REGLAN) TAB PO SCH ×2 (08:34→19:56)
[2021-07-17] MEDS: FUROSEMIDE 20 MG (LASIX) TAB PO SCH (08:34)
[2021-07-17] MEDS: lisINopril 20 MG (PRINIVIL) TABLET PO SCH (08:34)
[2021-07-17] MEDS: meTOproloL SUCCINATE 50 MG (TOPROL XL) TAB PO SCH ×2 (08:34→08:35)
[2021-07-17] MEDS: ASPIRIN E.C. 81 MG (ECOTRIN) TAB PO SCH (08:34)
[2021-07-17] MEDS: polyethylene glycoL POWDER 17 GM (MIRALAX) PACK PO SCH ×2 (08:35→19:56)
[2021-07-17] MEDS: LORATADINE (CLARITIN) 10 MG TAB PO SCH (08:35)
[2021-07-17] MEDS: SENNA W/DOCUSATE (SENOKOT S) TABLET PO SCH ×2 (08:35→19:57)
[2021-07-17 08:51] VITALS: BP 175/79
--- NOTE | 2021-07-17 09:20 | Progress Note - Ortho ---
Progress Note Subjective Date of Exam 07/17/21 Chief Complaint POD#5 Cemented bipolar hemiarthroplasty left hip for a displaced subcapital fracture HPI/Events since last exam Mrs. Su is 5 days postop cemented bipolar hemiarthroplasty left hip for displaced subcapital fracture. When I saw her she was in bed. She states she was having minimal hip pain.No other complaint Review of Systems Reviewed and no additions or changes Allergies: Coded Allergies: cortisone (Verified Allergy, Unknown, 01/30/07) diphenhydramine (Verified Allergy, Unknown, 01/30/07) penicillin G (Verified Allergy, Unknown, 07/12/21) The patient is unaware that she has a penicillin allergy. She does not remember ever taking it and if she did what the reaction was. It has not been recently. Home Meds Reported Medications Furosemide (Furosemide) 20 Mg Tablet, 20 MG PO DAILY, TAB 07/12/21 Paroxetine HCl (Paroxetine HCl) 40 Mg Tablet, 40 MG PO HS, TAB 07/12/21 Trazodone HCl (Trazodone HCl) 50 Mg Tablet, 50 MG PO HS PRN for SLEEP, TAB 07/12/21 Atorvastatin Calcium (Atorvastatin Calcium) 20 Mg Tablet, 20 MG PO DAILY, TAB 07/12/21 Aspirin (Aspirin EC) 81 Mg Tablet.dr, 81 MG PO DAILY, TAB 10/22/20 Montelukast Sodium (Montelukast Sodium) 10 Mg Tablet, 10 MG PO HS, TAB 10/22/20 Lisinopril (Lisinopril) 40 Mg Tablet, 40 MG PO DAILY, TAB 10/22/20 Metoclopramide HCl (Metoclopramide HCl) 10 Mg Tablet, 10 MG PO BID, TAB 09/27/16 Cetirizine HCl (Cetirizine HCl) 10 Mg Tablet, 10 MG PO DAILY, TAB 09/27/16 Metoprolol Succinate (Metoprolol Succinate) 50 Mg Tab.er.24h, 50 MG PO DAILY, TAB LAST FILLED 01-26-2021 #90/90 DAY SUPPLY 09/27/16 Discontinued Reported Medications Tizanidine HCl (Tizanidine HCl) 2 Mg Capsule, 2 MG PO DAILY, CAP 11/18/20 Omeprazole (Omeprazole) 20 Mg Tab.rap.dr, 20 MG PO DAILY, EA 11/18/20 Methocarbamol (Methocarbamol) 750 Mg Tablet, 750 MG PO DAILY for Back Pain, TAB 11/18/20 Fluticasone Propionate (Flovent Hfa 110 mcg) 1 Ea Aero, 1 EA IH BID PRN for SHORTNESS OF BREATH, EA 10/22/20 Atorvastatin Calcium (Atorvastatin Calcium) 10 Mg Tablet, 10 MG PO DAILY, TAB 10/22/20 Hydrocodone/Acetaminophen (Hydrocodone-Acetamin 5-325 mg) 1 Each Tablet, 1 EA PO BID PRN for PAIN-MODERATE (5-7), TAB 10/22/20 Paroxetine HCl (Paroxetine HCl) 20 Mg Tablet, 20 MG PO DAILY, TAB 09/27/16 Discontinued Scripts Triamcinolone Acet (Triamcinolone Acetonide 0.1% Cream) 15 Gm Cr, 0 GM TOP BID PRN for ITCHING AND RASH, #1 TUBE Prov:MAE LENTZ DO 10/25/20 Pantoprazole Sodium (Pantoprazole Sodium) 40 Mg Tablet.dr, 40 MG PO DAILY, #30 T AB Prov:MAE LENTZ DO 10/25/20 Furosemide (Furosemide) 20 Mg Tablet, 20 MG PO BID@, #60 TAB Prov:MAE LENTZ DO 10/25/20 Objective Exam Constitutional: [] HEENT: [] Neck: [] Cardiovascular: [] Respiratory: [] Gastrointestinal: [] Genitourinary: [] Skin: [] Back/Spine: [] Extremities: I remove the dressing and she has some minimal serous drainage on the dressing. A little bit of blood-tinged superiorly. The incision overall looks good without redness.No calf tenderness, negative Homans. Good dorsiflexion plantarflexion of foot and ankle without pain and good strength. Normal sensation to the foot and toes. Equal pulses.[] Neurologic: [] Psychiatric: [] Hematologic/lymphatic/immunologic: [] Vital Signs Vital Signs Date Time Temp Pulse Resp B/P (MAP) Pulse Ox O2 Delivery O2 Flow Rate FiO2 07/17/21 08:51 35.4 82 18 175/79 (111) 96 Nasal Cannula 4.00 07/17/21 07:01 2.00 07/17/21 06:57 95 Nasal Cannula 3.00 07/17/21 04:00 36.2 89 18 160/94 (116) 97 Nasal Cannula 3.00 07/17/21 00:00 36.2 103 19 168/90 (116) 94 Nasal Cannula 3.00 07/16/21 21:12 97 Nasal Cannula 3.50 07/16/21 20:50 Nasal Cannula 4.00 07/16/21 20:10 36.1 87 22 162/82 (108) 95 Nasal Cannula 4.00 07/16/21 15:28 96 Nasal Cannula 4.00 07/16/21 15:15 36.3 90 20 137/85 (102) 100 Nasal Cannula 4.00 07/16/21 11:11 37.2 90 20 123/70 (87) 94 Nasal Cannula 4.00 I & O 07/17/21 07:00 Intake Total 1000 ml Output Total 530 ml Balance 470 ml Lab Results Laboratory Tests 07/17/21 05:15: White Blood Count 4.8, Red Blood Count 2.91L, Hemoglobin 8.8L, Hematocrit 28L, Mean Corpuscular Volume 96, Mean Corpuscular Hemoglobin 30, Mean Corpuscular Hemoglobin Concent 32, Red Cell Distribution Width 15.4H, Platelet Count 154, Mean Platelet Volume 11.1, Immature Granulocyte % (Auto) 1, Neutrophils (%) (Auto) 61, Lymphocytes (%) (Auto) 22, Monocytes (%) (Auto) 13H, Eosinophils (%) (Auto) 3, Basophils (%) (Auto) 1, Neutrophils # (Auto) 2.9, Lymphocytes # (Auto) 1.1, Monocytes # (Auto) 0.6, Eosinophils # (Auto) 0.2, Basophils # (Auto) 0.0, Immature Granulocyte # (Auto) 0.0, Sodium Level 139, Potassium Level 3.9, Chloride Level 103, Carbon Dioxide Level 27, Anion Gap 9, Blood Urea Nitrogen 19H, Creatinine 0.78, Estimat Glomerular Filtration Rate 71, BUN/Creatinine Ratio 24, Glucose Level 113H, Calcium Level 8.5, Corrected Calcium 9.5, Total Bilirubin 0.7, Aspartate Amino Transf (AST/SGOT) 25, Alanine Aminotransferase (ALT/SGPT) 8, Alkaline Phosphatase 80, Total Protein 6.8, Albumin 2.7L Microbiology 07/15/21 Blood Culture - Preliminary, Resulted No growth 07/12/21 MRSA Screen - Final, Complete MRSA not isolated 07/12/21 Urine Culture - Final, Complete Escherichia coli Assessment and Plan Assessment Doing well 5 days postop Problem List Unchanged Plan Continue physical therapy, walker ambulation weightbearing as tolerated on the left. Dressing change today. Final Diagonsis Displaced subcapital fracture left hip status post cemented bipolar hemiarthroplasty Level of the visit: Level 3 Focused Exam Lactate Level 07/15/21 16:24: Lactic Acid Level 0.90 Clinical Quality Measures DVT/VTE Risk/Contraindication: Contraindications-Pharm: Pt at low risk Other: or MEIR CUMMINGS MD Jul 17, 2021 09:19
[2021-07-17 12:05] VITALS: BP 174/93
--- NOTE | 2021-07-17 13:41 | Cardiology Progress Note ---
Progress Note-Cardiology Events since last exam Date Seen by Provider: Jul 17, 2021 Time Seen by Provider: 13:38 Events since last exam I am following her due to heart failure and cardiomyopathy. She was laying in bed comfortably. She did not eat lunch. She states she is not hungry. She denies chest discomfort, dyspnea, palpitations, syncope, or ankle edema. Certain portions of this document may have been dictated utilizing voice recognition technology. Inherent to this technology, typographical and g rammatical errors may exist. As much as I am diligent to identify and correct these mistakes, some errors may remain in the document. Vitals Last set of Vitals Signs Vital Signs 07/17/21 12:05 Temp 35.2 Pulse 83 Resp 18 B/P (MAP) 174/93 (120) Pulse Ox 95 O2 Delivery Nasal Cannula O2 Flow Rate 4.00 Labs Labs Laboratory Tests 07/17/21 05:15 Exam Vital Signs Vital Signs Date Time Temp Pulse Resp B/P (MAP) Pulse Ox O2 Delivery O2 Flow Rate FiO2 07/17/21 12:05 35.2 83 18 174/93 (120) 95 Nasal Cannula 4.00 Physical Exam General: Alert. No acute distress. She is obese. Eye: No xanthelasma. HENT: Normocephalic. Neck: Jugular venous pressure does not appear elevated. Respiratory: Lungs are clear to auscultation. Respirations are non-labored. Breath sounds are equal. Symmetrical chest wall expansion. Cardiovascular: Normal rate. Regular rhythm. No murmur. No gallop. No edema. Gastrointestinal: Soft. Normal bowel sounds. Skin: Warm. Dry. Neurologic: Alert and oriented to person, place, time. Cranial nerves 3-11 juan sly intact. Psychiatric: Cooperative. Appropriate mood & affect. Labs Laboratory Tests Test 07/17/21 05:15 Range/Units White Blood Count 4.8 4.3-11.0 10^3/uL Red Blood Count 2.91 L 3.80-5.11 10^6/uL Hemoglobin 8.8 L 11.5-16.0 g/dL Hematocrit 28 L 35-52 % Mean Corpuscular Volume 96 80-99 fL Mean Corpuscular Hemoglobin 30 25-34 pg Mean Corpuscular Hemoglobin Concent 32 32-36 g/dL Red Cell Distribution Width 15.4 H 10.0-14.5 % Platelet Count 154 130-400 10^3/uL Mean Platelet Volume 11.1 9.0-12.2 fL Immature Granulocyte % (Auto) 1 % Neutrophils (%) (Auto) 61 42-75 % Lymphocytes (%) (Auto) 22 12-44 % Monocytes (%) (Auto) 13 H 0-12 % Eosinophils (%) (Auto) 3 0-10 % Basophils (%) (Auto) 1 0-10 % Neutrophils # (Auto) 2.9 1.8-7.8 10^3/uL Lymphocytes # (Auto) 1.1 1.0-4.0 10^3/uL Monocytes # (Auto) 0.6 0.0-1.0 10^3/uL Eosinophils # (Auto) 0.2 0.0-0.3 10^3/uL Basophils # (Auto) 0.0 0.0-0.1 10^3/uL Immature Granulocyte # (Auto) 0.0 0.0-0.1 10^3/uL Sodium Level 139 135-145 MMOL/L Potassium Level 3.9 3.6-5.0 MMOL/L Chloride Level 103 98-107 MMOL/L Carbon Dioxide Level 27 21-32 MMOL/L Anion Gap 9 5-14 MMOL/L Blood Urea Nitrogen 19 H 7-18 MG/DL Creatinine 0.78 0.60-1.30 MG/DL Estimat Glomerular Filtration Rate 71 BUN/Creatinine Ratio 24 Glucose Level 113 H 70-105 MG/DL Calcium Level 8.5 8.5-10.1 MG/DL Corrected Calcium 9.5 8.5-10.1 MG/DL Total Bilirubin 0.7 0.1-1.0 MG/DL Aspartate Amino Transf (AST/SGOT) 25 5-34 U/L Alanine Aminotransferase (ALT/SGPT) 8 0-55 U/L Alkaline Phosphatase 80 40-136 U/L Total Protein 6.8 6.4-8.2 GM/DL Albumin 2.7 L 3.2-4.5 GM/DL Diagnosis/Problems Diagnosis/Problems (1) Acute on chronic systolic heart failure Assessment & Plan: Her chest x-ray from t 07/16 was improved. Clinically, she seems to be overall improved from a cardiac standpoint. Continue lisinopril and metoprolol succinate as tolerated by blood pressure. These have been intermittently held due to low blood pressure. I resumed her oral furosemide. (2) Cardiomyopathy Assessment & Plan: She had mild left ventricular systolic dysfunction on her most recent echocardiogram. She is on metoprolol succinate and lisinopril which should be continued as long as her blood pressure tolerates. (3) Primary hypertension Assessment & Plan: She is now actually hypertensive. If this persists, we may need to adjust her antihypertensive medication. (4) Coronary artery disease without angina pectoris Assessment & Plan: She has a history of coronary artery disease but is not having any angina at the present time. Continue aspirin, beta-amy, and statin medication. (5) Mixed hyperlipidemia Assessment & Plan: Continue atorvastatin. SHARATH JORDAN JR, MD Jul 17, 2021 13:41
[2021-07-17 15:41] VITALS: BP 132/72
[2021-07-17] MEDS: MONTELUKAST 10 MG (SINGULAIR) TAB PO SCH (19:56)
[2021-07-17] MEDS: PARoxetine 20 MG (PAXIL) TAB PO SCH (19:56)
[2021-07-17 20:05] VITALS: BP 143/85
[2021-07-18] VITALS: BP 146/76
[2021-07-18] MEDS: CEFEPIME INJECTION 1,000 MG in NS (IVPB) 50 ML IV SCH ×3 (05:17→21:57)
[2021-07-18] MEDS: ENOXAPARIN 40 MG/0.4 ML (LOVENOX) SYR SC SCH (05:17)
[2021-07-18 06:18] LABS: BASOPHILS % (AUTO) 1 % (0-10); EOSINOPHILS # (AUTO) 0.2 10^3/uL (0.0-0.3); EOSINOPHILS % (AUTO) 4 % (0-10); HEMATOCRIT 28 % (35-52); HEMOGLOBIN 8.8 g/dL (11.5-16.0); LYMPHOCYTES # (AUTO) 1.1 10^3/uL (1.0-4.0); LYMPHOCYTES % (AUTO) 25 % (12-44); MEAN CORPUSCULAR HEMOGLOBIN 30 pg (25-34); MEAN CORPUSCULAR HGB CONC 31 g/dL (32-36); MEAN CORPUSCULAR VOLUME 97 fL (80-99); MEAN PLATELET VOLUME 10.6 fL (9.0-12.2); MONOCYTES # (AUTO) 0.5 10^3/uL (0.0-1.0); MONOCYTES % (AUTO) 12 % (0-12); NEUTROPHILS # (AUTO) 2.5 10^3/uL (1.8-7.8); NEUTROPHILS % (AUTO) 58 % (42-75); PLATELET COUNT 145 10^3/uL (130-400); WHITE BLOOD COUNT 4.4 10^3/uL (4.3-11.0)
[2021-07-18 06:50] LABS: ALBUMIN 2.7 GM/DL (3.2-4.5); BILIRUBIN,TOTAL 0.7 MG/DL (0.1-1.0); CALCIUM 8.5 MG/DL (8.5-10.1); CREATININE SERUM 0.86 MG/DL (0.60-1.30); POTASSIUM 3.8 MMOL/L (3.6-5.0); TOTAL PROTEIN 6.8 GM/DL (6.4-8.2)
[2021-07-18] MEDS: RT-ALBUTEROL SULF 2.5 MG/3 ML PRE-MIX VIAL INH SCH ×3 (07:30→21:12)
[2021-07-18] MEDS: SENNA W/DOCUSATE (SENOKOT S) TABLET PO SCH ×2 (08:30→20:15)
[2021-07-18] MEDS: polyethylene glycoL POWDER 17 GM (MIRALAX) PACK PO SCH ×2 (08:30→20:15)
[2021-07-18] MEDS: ASPIRIN E.C. 81 MG (ECOTRIN) TAB PO SCH (08:30)
[2021-07-18] MEDS: lisINopril 20 MG (PRINIVIL) TABLET PO SCH (08:31)
[2021-07-18] MEDS: meTOproloL SUCCINATE 50 MG (TOPROL XL) TAB PO SCH (08:31)
[2021-07-18] MEDS: LORATADINE (CLARITIN) 10 MG TAB PO SCH (08:31)
[2021-07-18] MEDS: METOCLOPRAMIDE 10 MG (REGLAN) TAB PO SCH ×2 (08:31→20:46)
[2021-07-18] MEDS: FUROSEMIDE 20 MG (LASIX) TAB PO SCH (08:31)
[2021-07-18 08:33] VITALS: BP 173/77
--- NOTE | 2021-07-18 08:46 | Occupational Ther Daily Note ---
OT Current Status-Daily Note Subjective Pt alert, laying in bed with HOB raised eating breakfast when OT entered. Pt agreed to therapy. No c/o pain reported. ADL-Treatment Pt declined combing hair at bathroom sink. Pt stated she can not get up. Pt combed hair while laying in bed with HOB raised. Pt stated she needed to use restroom. OT notified nursing to assist with transfers due to increase fall risk and poor mobility. Pt transferred to EOB with supervision. Pt sit-stand from EOB to FWW with min A. Pt SPT to bedside commode with min A and verbal cues for proper sequence and hand placement. Pt required max A to complete toilet hygiene. Pt transferred to recliner using FWW. After session, pt sitting at r ecliner. Nrsing in room. All needs met and call light in reach. Therapy Code Descriptions/Definitions Functional [place] Measure: 0=Not Assessed/NA 4=Minimal Assistance 1=Total Assistance 5=Supervision or Setup 2=Maximal Assistance 6=Modified [place] 3=Moderate Assistance 7=Complete IndependenceSCALE: Activities may be completed with or without assistive devices. 7-Zpzsdbnqqq-sqojmqo completes the activity by him/herself with no assistance from a helper. 5-Set-up or Clean-up Assistance-helper sets up or cleans up; patient completes activity. [place] assists only prior to or following the activity. 4-Supervision or Touching Assistance-helper provides verbal cues and/or touching/steadying and/or contact guard assistance as patient completes activity. Assistance may be provided throughout the activity or intermittently. 3-Partial/Moderate Assistance-helper does LESS THAN HALF the effort. [place] lifts, holds or supports trunk or limbs, but provides less than half the effort. 2-Substantial/Maximal Assistance-helper does MORE THAN HALF the effort. [place] lifts or holds trunk or limbs and provides more than half the effort. 4-Kkkawekcc-ogwvqg does ALL the effort. Patient does none of the effort to complete the activity. Or, the assistance of 2 or more helpers is required for the patient to complete the activity. If activity was not attempted, code reason: 7-Patient Refused. 9-Not Applicable-not attempted and the patient did not perform the activity before the current illness, exacerbation or injury. 10-Not Attempted due to Environmental Limitations-(lack of equipment, weather restraints, etc.). 88-Not Attempted due to Medical Conditions or Safety Concerns. Education OT Patient Education: Correct positioning, Energy conservation, Transfer techniques Teaching Recipient: Patient, Significant Other Teaching Methods: Demonstration Response to Teaching: Verbalize Understanding, Return Demonstration OT Collision Estimator Goals Correction Goals Time Frame: Jul 27, 2021 Oral Hygiene (QC): 5 Toileting Hygiene (QC): 4 Shower/Bathe Self (QC): 4 Upper Body Dressing (QC): 5 Lower Body Dressing (QC): 4 On/Off Footwear (QC): 4 1=Demonstrate adherence to instructed precautions during ADL tasks. 2=Patient will verbalize/demonstrate understanding of assistive devices/modifications for ADL. 3=Patient will improve strength/tolerance for activity to enable patient to perform ADL's. OT Education/Plan Problem List/Assessment Assessment: Decreased Activ Tolerance, Decreased UE Strength, Impaired I ADL's, Impaired Self-Care Skills Discharge Recommendations Plan/Recommendations: Continue POC Treatment Plan/Plan of Care Patient would benefit from OT for education, treatment and training to promote independence in ADL's, mobility, safety and/or upper extremity function for ADL's. Plan of Care: ADL Retraining, Functional Mobility, UE Funct Exercise/Act, W/C Management Training Treatment Duration: Jul 27, 2021 Frequency: 3 times per week Estimated Hrs Per Day: .25 hour per day Rehab Potential: Fair Time/GCodes Start Time: 08:05 Stop Time: 08:20 Total Time Billed (hr/min): 15 Billed Treatment Time 1 visit- ADL 1 (15 mins) MEG COULTER Jul 18, 2021 08:46
--- NOTE | 2021-07-18 09:00 | Progress Note - Ortho ---
Progress Note Subjective Date of Exam 07/18/21 Chief Complaint POD#6 Cemented bipolar right hemiarthroplasty left hip For a displaced subcapital fracture HPI/Events since last exam Mrs. Su is 6 days postop cemented bipolar hemiarthroplasty left hip for displaced subcapital fracture. When I saw her she had just completed physical therapy. She states her hip feels fine. No other complaints. Review of Systems Reviewed and no additions or change Allergies: Coded Allergies: cortisone (Verified Allergy, Unknown, 01/30/07) diphenhydramine (Verified Allergy, Unknown, 01/30/07) penicillin G (Verified Allergy, Unknown, 07/12/21) The patient is unaware that she has a penicillin allergy. She does not remember ever taking it and if she did what the reaction was. It has not been recently. Home Meds Reported Medications Furosemide (Furosemide) 20 Mg Tablet, 20 MG PO DAILY, TAB 07/12/21 Paroxetine HCl (Paroxetine HCl) 40 Mg Tablet, 40 MG PO HS, TAB 07/12/21 Trazodone HCl (Trazodone HCl) 50 Mg Tablet, 50 MG PO HS PRN for SLEEP, TAB 07/12/21 Atorvastatin Calcium (Atorvastatin Calcium) 20 Mg Tablet, 20 MG PO DAILY, TAB 07/12/21 Aspirin (Aspirin EC) 81 Mg Tablet.dr, 81 MG PO DAILY, TAB 10/22/20 Montelukast Sodium (Montelukast Sodium) 10 Mg Tablet, 10 MG PO HS, TAB 10/22/20 Lisinopril (Lisinopril) 40 Mg Tablet, 40 MG PO DAILY, TAB 10/22/20 Metoclopramide HCl (Metoclopramide HCl) 10 Mg Tablet, 10 MG PO BID, TAB 09/27/16 Cetirizine HCl (Cetirizine HCl) 10 Mg Tablet, 10 MG PO DAILY, TAB 09/27/16 Metoprolol Succinate (Metoprolol Succinate) 50 Mg Tab.er.24h, 50 MG PO DAILY, TAB LAST FILLED 01-26-2021 #90/90 DAY SUPPLY 09/27/16 Discontinued Reported Medications Tizanidine HCl (Tizanidine HCl) 2 Mg Capsule, 2 MG PO DAILY, CAP 11/18/20 Omeprazole (Omeprazole) 20 Mg Tab.rap.dr, 20 MG PO DAILY, EA 11/18/20 Methocarbamol (Methocarbamol) 750 Mg Tablet, 750 MG PO DAILY for Back Pain, TAB 11/18/20 Fluticasone Propionate (Flovent Hfa 110 mcg) 1 Ea Aero, 1 EA IH BID PRN for SHORTNESS OF BREATH, EA 10/22/20 Atorvastatin Calcium (Atorvastatin Calcium) 10 Mg Tablet, 10 MG PO DAILY, TAB 10/22/20 Hydrocodone/Acetaminophen (Hydrocodone-Acetamin 5-325 mg) 1 Each Tablet, 1 EA PO BID PRN for PAIN-MODERATE (5-7), TAB 10/22/20 Paroxetine HCl (Paroxetine HCl) 20 Mg Tablet, 20 MG PO DAILY, TAB 09/27/16 Discontinued Scripts Triamcinolone Acet (Triamcinolone Acetonide 0.1% Cream) 15 Gm Cr, 0 GM TOP BID PRN for ITCHING AND RASH, #1 TUBE Prov:MAE LENTZ DO 10/25/20 Pantoprazole Sodium (Pantoprazole Sodium) 40 Mg Tablet.dr, 40 MG PO DAILY, #30 TAB Prov:MAE LENTZ DO 10/25/20 Furosemide (Furosemide) 20 Mg Tablet, 20 MG PO BID@, #60 TAB Prov:MAE LENTZ DO 10/25/20 Objective Exam Constitutional: [] HEENT: [] Neck: [] Cardiovascular: [] Respiratory: [] Gastrointestinal: [] Genitourinary: [] Skin: [] Back/Spine: [] Extremities: [Dressing is intact with a small amount of serous drainage on the dressing. No calf tenderness and negative Homans. Good motion ankle without pain. No weakness on dorsiflexion plantarflexion of the foot. Normal sensation of the foot and toes with good cap refill and equal pulses. Equal position of the legs.] Neurologic: [] Psychiatric: [] Hematologic/lymphatic/immunologic: [] Vital Signs Vital Signs Date Time Temp Pulse Resp B/P (MAP) Pulse Ox O2 Delivery O2 Flow Rate FiO2 07/18/21 08:33 36.4 83 20 173/77 (109) 96 Nasal Cannula 2.00 07/18/21 07:30 94 Nasal Cannula 2.00 07/18/21 00:00 36.0 71 18 146/76 (99) 95 Nasal Cannula 1.50 07/17/21 21:38 94 Nasal Cannula 2.00 07/17/21 20:05 36.2 75 20 143/85 (104) 97 Nasal Cannula 1.50 07/17/21 19:55 Nasal Cannula 2.00 07/17/21 15:41 35.5 84 19 132/72 (92) 96 Nasal Cannula 1.50 07/17/21 12:05 35.2 83 18 174/93 (120) 95 Nasal Cannula 4.00 I & O 07/18/21 07:00 Intake Total 800 ml Output Total 300 ml Balance 500 ml Lab Results Laboratory Tests 07/18/21 06:00: White Blood Count 4.4, Red Blood Count 2.89L, Hemoglobin 8.8L, Hematocrit 28L, Mean Corpuscular Volume 97, Mean Corpuscular Hemoglobin 30, Mean Corpuscular Hemoglobin Concent 31L, Red Cell Distribution Width 15.6H, Platelet Count 145, Mean Platelet Volume 10.6, Immature Granulocyte % (Auto) 1, Neutrophils (%) (Auto) 58, Lymphocytes (%) (Auto) 25, Monocytes (%) (Auto) 12, Eosinophils (%) (Auto) 4, Basophils (%) (Auto) 1, Neutrophils # (Auto) 2.5, Lymphocytes # (Auto) 1.1, Monocytes # (Auto) 0.5, Eosinophils # (Auto) 0.2, Basophils # (Auto) 0.0, Immature Granulocyte # (Auto) 0.0, Sodium Level 138, Potassium Level 3.8, Chloride Level 103, Carbon Dioxide Level 25, Anion Gap 10, Blood Urea Nitrogen 24H, Creatinine 0.86, Estimat Glomerular Filtration Rate 63, BUN/Creatinine Ratio 28, Glucose Level 121H, Calcium Level 8.5, Corrected Calcium 9.5, Total Bilirubin 0.7, Aspartate Amino Transf (AST/SGOT) 27, Alanine Aminotransferase (ALT/SGPT) 8, Alkaline Phosphatase 74, Total Protein 6.8, Albumin 2.7L Microbiology 07/15/21 Blood Culture - Preliminary, Resulted No growth 07/12/21 MRSA Screen - Final, Complete MRSA not isolated 07/12/21 Urine Culture - Final, Complete Escherichia coli Assessment and Plan Assessment Doing well 6 days postop Problem List Unchanged Plan Continue with physical therapy walker ambulation weightbearing as tolerated on the left Final Diagonsis Displaced subcapital fracture left hip status post cemented bipolar hemiarthroplasty Level of the visit: Level 3 Focused Exam Lactate Level 07/15/21 16:24: Lactic Acid Level 0.90 Clinical Quality Measures DVT/VTE Risk/Contraindication: Contraindications-Pharm: Pt at low risk Other: MEIR Neville MD Jul 18, 2021 09:00
--- NOTE | 2021-07-18 09:52 | Physical Therapy Daily Note ---
PT Daily Note-Current Subjective Patient agrees to PT. Patient states, "I can't walk." Mental Status Patient Orientation: Person, Time Attachments: Oxygen Transfers SCALE: Activities may be completed with or without assistive devices. 9-Dlvltoxxsk-prsgqek completes the activity by him/herself with no assistance from a helper. 5-Set-up or Clean-up Assistance-helper sets up or cleans up; patient completes activity. [place] assists only prior to or following the activity. 4-Supervision or Touching Assistance-helper provides verbal cues and/or touching/steadying and/or contact guard assistance as patient completes activity. Assistance may be provided throughout the activity or intermittently. 3-Partial/Moderate Assistance-helper does LESS THAN HALF the effort. [place] lifts, holds or supports trunk or limbs, but provides less than half the effort. 2-Substantial/Maximal Assistance-helper does MORE THAN HALF the effort. [place] lifts or holds trunk or limbs and provides more than half the effort. 1-Elzyfjruv-jaqitv does ALL the effort. Patient does none of the effort to complete the activity. Or, the assistance of 2 or more helpers is required for the patient to complete the activity. If activity was not attempted, code reason: 7-Patient Refused. 9-Not Applicable-not attempted and the patient did not perform the activity before the current illness, exacerbation or injury. 10-Not Attempted due to Environmental Limitations-(lack of equipment, weather restraints, etc.). 88-Not Attempted due to Medical Conditions or Safety Concerns. Sit to Stand (QC): 4 Toilet Transfer (QC): 4 assist to cleanse after incontinent BM Weight Bearing Right Lower Extremity: Right Full Weight Bearing Left Lower Extremity: Left Weight Bearing/Tolerated Gait Training Does the Patient Walk?: Yes Distance: 125' Walk 10 feet (QC): 4 Walk 50 ft with 2 Turns(QC): 4 Gait Assistive Device: FWW slow, decreased step length, functional Exercises Seated Therapy Exercises: Ankle pumps, Long arc quads Seated Reps: 15 Assessment Patient tolerated treatment well and remains up in recliner with needs met. Patient did require VC's for gait sequence. PT Planer Feeder Goals Planer Feeder Goals PT Residential Goals Time Frame: Jul 20, 2021 Roll Left & Right (QC): 6 Sit to Lying (QC): 4 Lying-Sitting on Side/Bed(QC): 4 Sit to Stand (QC): 4 Chair/Nyk-ca-Chhvy Xfer(QC): 4 Walk 10 feet (QC): 4 Walk 50ft with 2 Turns (QC): 4 PT Plan Treatment/Plan Treatment Plan: Continue Plan of Care Treatment Plan: Bed Mobility, Education, Functional Activity Josh, Functional Strength, Gait, Safety, Therapeutic Exercise, Transfers Treatment Duration: Jul 20, 2021 Frequency: 11 times per week Estimated Hrs Per Day: .25 hour per day Patient and/or Family Agrees t: Yes Time/GCodes Time In: 834 Time Out: 846 Total Billed Treatment Time: 15 Total Billed Treatment 1 visit GT 15 min TEGAN SAUL PT Jul 18, 2021 09:52
--- NOTE | 2021-07-18 12:05 | Progress Note - Hospitalist ---
DARRYN IBRAHIM 07/18/21 1205: Subjective HPI/CC On Admission Date Seen by Provider: Jul 18, 2021 Time Seen by Provider: 08:30 CC: Left femoral neck fracture HPI: This is a [facility] patient who lives with her son and [id number] who fell on the floor and suffered a left femoral neck fracture. Pt is very frail but appears to meet criteria for repair. Benefits outweigh the medical risk in my opinion. I have checked meds and labs and I have consulted cardiology and echocardiogram will be obtained to evaluate the systolic dysfunction that was seen on prior exam. Subjective/Events-last exam Patient walked with PT today. States the walk went well but she felt tired. Patient had two bowel movements yesterday. Patient has no complaints, her pain is well controlled. Patient on 1.5 L O2 NC when I saw her. Patient still has diminished air movement in the bilateral lower lobes. Still working on placement for patient on discharge. Review of Systems Cardiovascular: No: Chest Pain, Palpitations Gastrointestinal: No: Nausea, Vomiting, Constipation Genitourinary: No Dysuria Focused Exam Lactate Level 07/15/21 16:24: Lactic Acid Level 0.90 Objective Exam Vital Signs Vital Signs Date Time Temp Pulse Resp B/P (MAP) Pulse Ox O2 Delivery O2 Flow Rate FiO2 07/18/21 08:33 36.4 83 20 173/77 (109) 96 Nasal Cannula 2.00 Capillary Refill : Less Than 3 SecondsLess Than 3 Seconds General Appearance: No Apparent Distress, WD/WN Respiratory: Chest Non Tender, Lungs Clear, No Accessory Muscle Use, No Respiratory Distress, Decreased Breath Sounds Cardiovascular: Regular Rate, Rhythm, Normal Peripheral Pulses Neurologic/Psychiatric: Alert, Oriented x3, Normal Mood/Affect Results/Procedures Lab Laboratory Tests 07/18/21 06:00 Patient resulted labs reviewed. Assessment/Plan Assessment and Plan Assess & Plan/Chief Complaint Assessment: L hip Fracture status post uncomplicated repair by Dr. Ledesma UTI on Rocephin Systolic congestive heart failure ejection fraction 40% Hypertension Decreased urinary output Acute kidney insufficiency Acute blood loss anemia requiring 2 units of transfusion Plan: Pain control Increase IV fluids Supportive care 07/14/2021: Transfuse PT and OT 07/15/2021: Septic work-up Check chest x-ray again today Lasix 40 mg x 1 07/16/2021: Antibiotics Diuresis Oxygen 07/17/2021: Supportive care Bowel regimen 07/18/2021: Continue Abx Continue Diuresis Continue bowel regimen Supportive care Clinical Quality Measures DVT/VTE Risk/Contraindication: Contraindications-Pharm: Pt at low risk Other: or MAYA LENTZ DO 07/19/21 0520: Subjective Subjective/Events-last exam Pt doing pretty well Walked with therapy Remains on 1 liters of oxygen Clear to auscultation B/L noted FDC pending Review of Systems General: Fatigue, Malaise Objective Exam General Appearance: No Apparent Distress, WD/WN, Chronically ill Respiratory: Lungs Clear, Normal Breath Sounds Cardiovascular: Regular Rate, Rhythm Neurologic/Psychiatric: Alert, Oriented x3, Depressed Affect Assessment/Plan Assessment and Plan Assess & Plan/Chief Complaint Await alf placement Supervisory-Addendum Brief Verification & Attestation Participated in pt care: history, MDM, physical Personally performed: exam, history, MDM, supervision of care Care discussed with: Medical Student Procedures: n/a Results interpretation: Verified all documentation Verification and Attestation of Medical Student E/M Service A medical student performed and documented this service in my presence. I reviewed and verified all information documented by the medical student and made modifications to such information, when appropriate. I personally performed the physical exam and medical decision making. Maya Lentz Jul 19, 2021,05:19 DARRYN IBRAHIM Jul 18, 2021 12:05 MAYA LENTZ DO Jul 19, 2021 05:20
--- NOTE | 2021-07-18 14:25 | Physical Therapy Daily Note ---
PT Daily Note-Current Subjective Patient agrees to PT. Transfers SCALE: Activities may be completed with or without assistive devices. 2-Qnvypjelat-jcirojk completes the activity by him/herself with no assistance from a helper. 5-Set-up or Clean-up Assistance-helper sets up or cleans up; patient completes activity. [place] assists only prior to or following the activity. 4-Supervision or Touching Assistance-helper provides verbal cues and/or touching/steadying and/or contact guard assistance as patient completes activity. Assistance may be provided throughout the activity or intermittently. 3-Partial/Moderate Assistance-helper does LESS THAN HALF the effort. [place] lifts, holds or supports trunk or limbs, but provides less than half the effort. 2-Substantial/Maximal Assistance-helper does MORE THAN HALF the effort. [place] lifts or holds trunk or limbs and provides more than half the effort. 6-Lnsvogyhs-mcqnkn does ALL the effort. Patient does none of the effort to complete the activity. Or, the assistance of 2 or more helpers is required for the patient to complete the activity. If activity was not attempted, code reason: 7-Patient Refused. 9-Not Applicable-not attempted and the patient did not perform the activity before the current illness, exacerbation or injury. 10-Not Attempted due to Environmental Limitations-(lack of equipment, weather restraints, etc.). 88-Not Attempted due to Medical Conditions or Safety Concerns. Sit to Lying (QC): 4 Sit to Stand (QC): 4 Weight Bearing Right Lower Extremity: Right Full Weight Bearing Left Lower Extremity: Left Weight Bearing/Tolerated Gait Training Distance: 150' Walk 10 feet (QC): 4 Walk 50 ft with 2 Turns(QC): 4 Walk 150 ft (QC): 4 Gait Assistive Device: FWW slow, shuffle gait sequence with multiple standing recovery periods due to SOA with 3L O2 in place Exercises Seated Therapy Exercises: Ankle pumps, Long arc quads Seated Reps: 12 Assessment Patient returned to bed with 4 rails up and abduction pillow in place. Increase activity as tolerated by patient. PT Longterm Goals Laborer [place] Goals PT Laborer [place] Goals Time Frame: Jul 20, 2021 Roll Left & Right (QC): 6 Sit to Lying (QC): 4 Lying-Sitting on Side/Bed(QC): 4 Sit to Stand (QC): 4 Chair/Eje-gv-Fteie Xfer(QC): 4 Walk 10 feet (QC): 4 Walk 50ft with 2 Turns (QC): 4 PT Plan Treatment/Plan Treatment Plan: Continue Plan of Care Treatment Plan: Bed Mobility, Education, Functional Activity Josh, Functional Strength, Gait, Safety, Therapeutic Exercise, Transfers Treatment Duration: Jul 20, 2021 Frequency: 11 times per week Estimated Hrs Per Day: .25 hour per day Patient and/or Family Agrees t: Yes Time/GCodes Time In: 1357 Time Out: 1410 Total Billed Treatment Time: 13 Total Billed Treatment 1 visit GT 13 min TEGAN SAUL PT Jul 18, 2021 14:25
[2021-07-18 16:00] VITALS: BP 149/77
[2021-07-18] MEDS: PARoxetine 20 MG (PAXIL) TAB PO SCH (20:47)
[2021-07-18] MEDS: MONTELUKAST 10 MG (SINGULAIR) TAB PO SCH (20:47)
[2021-07-19 00:25] VITALS: BP 174/70
[2021-07-19] MEDS: CEFEPIME INJECTION 1,000 MG in NS (IVPB) 50 ML IV SCH ×3 (05:40→21:30)
[2021-07-19] MEDS: ENOXAPARIN 40 MG/0.4 ML (LOVENOX) SYR SC SCH (05:40)
[2021-07-19 05:55] LABS: BASOPHILS % (AUTO) 1 % (0-10); EOSINOPHILS # (AUTO) 0.2 10^3/uL (0.0-0.3); EOSINOPHILS % (AUTO) 3 % (0-10); HEMATOCRIT 26 % (35-52); HEMOGLOBIN 8.2 g/dL (11.5-16.0); LYMPHOCYTES # (AUTO) 1.1 10^3/uL (1.0-4.0); LYMPHOCYTES % (AUTO) 24 % (12-44); MEAN CORPUSCULAR HEMOGLOBIN 31 pg (25-34); MEAN CORPUSCULAR HGB CONC 31 g/dL (32-36); MEAN CORPUSCULAR VOLUME 98 fL (80-99); MEAN PLATELET VOLUME 10.4 fL (9.0-12.2); MONOCYTES # (AUTO) 0.5 10^3/uL (0.0-1.0); MONOCYTES % (AUTO) 11 % (0-12); NEUTROPHILS # (AUTO) 2.7 10^3/uL (1.8-7.8); NEUTROPHILS % (AUTO) 60 % (42-75); PLATELET COUNT 163 10^3/uL (130-400); WHITE BLOOD COUNT 4.6 10^3/uL (4.3-11.0)
[2021-07-19 06:14] LABS: ALBUMIN 2.7 GM/DL (3.2-4.5); POTASSIUM 3.8 MMOL/L (3.6-5.0)
[2021-07-19 06:15] LABS: CALCIUM 8.4 MG/DL (8.5-10.1)
[2021-07-19 06:17] LABS: TOTAL PROTEIN 6.7 GM/DL (6.4-8.2)
[2021-07-19 06:19] LABS: BILIRUBIN,TOTAL 0.7 MG/DL (0.1-1.0)
[2021-07-19 06:20] LABS: CREATININE SERUM 0.83 MG/DL (0.60-1.30)
[2021-07-19] MEDS: RT-ALBUTEROL SULF 2.5 MG/3 ML PRE-MIX VIAL INH SCH ×3 (07:00→21:47)
[2021-07-19 07:25] VITALS: BP 188/81
[2021-07-19] MEDS: polyethylene glycoL POWDER 17 GM (MIRALAX) PACK PO SCH ×2 (08:01→21:29)
[2021-07-19] MEDS: METOCLOPRAMIDE 10 MG (REGLAN) TAB PO SCH ×2 (08:01→21:29)
[2021-07-19] MEDS: lisINopril 20 MG (PRINIVIL) TABLET PO SCH (08:01)
[2021-07-19] MEDS: ASPIRIN E.C. 81 MG (ECOTRIN) TAB PO SCH (08:01)
[2021-07-19] MEDS: LORATADINE (CLARITIN) 10 MG TAB PO SCH (08:02)
[2021-07-19] MEDS: SENNA W/DOCUSATE (SENOKOT S) TABLET PO SCH ×2 (08:02→21:29)
[2021-07-19] MEDS: IRON SUCROSE 200 MG/10 ML (VENOFER) VIAL IV SCH (08:02)
[2021-07-19] MEDS: meTOproloL SUCCINATE 50 MG (TOPROL XL) TAB PO SCH (08:02)
[2021-07-19] MEDS: FUROSEMIDE 20 MG (LASIX) TAB PO SCH (08:02)
--- NOTE | 2021-07-19 09:28 | Occupational Ther Daily Note ---
OT Current Status-Daily Note Subjective Pt alert, sitting in recliner when OT entered. Pt agreed to therapy. No c/o pain reported. Mental Status/Objective Patient Orientation: Person, Place, Time, Situation ADL-Treatment Therapy Code Descriptions/Definitions Functional [place] Measure: 0=Not Assessed/NA 4=Minimal Assistance 1=Total Assistance 5=Supervision or Setup 2=Maximal Assistance 6=Modified [place] 3=Moderate Assistance 7=Complete IndependenceSCALE: Activities may be completed with or without assistive devices. 6-Ukwcnshkct-lgfflbv completes the activity by him/herself with no assistance from a helper. 5-Set-up or Clean-up Assistance-helper sets up or cleans up; patient completes activity. [place] assists only prior to or following the activity. 4-Supervision or Touching Assistance-helper provides verbal cues and/or touching/steadying and/or contact guard assistance as patient completes activity. Assistance may be provided throughout the activity or intermittently. 3-Partial/Moderate Assistance-helper does LESS THAN HALF the effort. [place] lifts, holds or supports trunk or limbs, but provides less than half the effort. 2-Substantial/Maximal Assistance-helper does MORE THAN HALF the effort. [place] lifts or holds trunk or limbs and provides more than half the effort. 2-Yglplcwrl-zlbbfd does ALL the effort. Patient does none of the effort to complete the activity. Or, the assistance of 2 or more helpers is required for the patient to complete the activity. If activity was not attempted, code reason: 7-Patient Refused. 9-Not Applicable-not attempted and the patient did not perform the activity before the current illness, exacerbation or injury. 10-Not Attempted due to Environmental Limitations-(lack of equipment, weather restraints, etc.). 88-Not Attempted due to Medical Conditions or Safety Concerns. Other Treatment Skilled instruction required of BUE green theraband exercises. Pt participated in x2 sets of 10 reps of BUE green theraband exercises to increase BUE strength for improved activity tolerance. Pt demonstrated fair technique, would benefit from anesthesiologist assistant certified resistance band. Pt required frequent resting breaks due to fatigue. After session, pt sitting in recliner. Call light in reach and all needs. Education OT Patient Education: Energy conservation, Exercise program, Home exercise program Teaching Recipient: Patient Teaching Methods: Demonstration, Handout, Discussion Response to Teaching: Verbalize Understanding, Return Demonstration OT General Scrap Worker Goals Shelter Goals Time Frame: Jul 27, 2021 Oral Hygiene (QC): 5 Toileting Hygiene (QC): 4 Shower/Bathe Self (QC): 4 Upper Body Dressing (QC): 5 Lower Body Dressing (QC): 4 On/Off Footwear (QC): 4 1=Demonstrate adherence to instructed precautions during ADL tasks. 2=Patient will verbalize/demonstrate understanding of assistive devices/modifications for ADL. 3=Patient will improve strength/tolerance for activity to enable patient to perform ADL's. OT Education/Plan Problem List/Assessment Assessment: Decreased Activ Tolerance, Decreased UE Strength, Impaired I ADL's, Impaired Self-Care Skills Discharge Recommendations Plan/Recommendations: Continue POC Treatment Plan/Plan of Care Patient would benefit from OT for education, treatment and training to promote independence in ADL's, mobility, safety and/or upper extremity function for ADL's. Plan of Care: ADL Retraining, Functional Mobility, UE Funct Exercise/Act, W/C Management Training Treatment Duration: Jul 27, 2021 Frequency: 3 times per week Estimated Hrs Per Day: .25 hour per day Rehab Potential: Fair Time/GCodes Start Time: 09:08 Stop Time: 09:20 Total Time Billed (hr/min): 12 Billed Treatment Time 1 visit- EX 1 (12 mins) MEG COULTER Jul 19, 2021 09:28
--- NOTE | 2021-07-19 09:47 | Physical Therapy Daily Note ---
PT Daily Note-Current Subjective Patient agrees to PT. Pain Numeric Pain Scale: 5-Moderate Pain Location: Left Location Body Site: Hip Mental Status Patient Orientation: Person, Time, Situation Attachments: Oxygen Transfers SCALE: Activities may be completed with or without assistive devices. 6-Mlkzlxnvga-giawdag completes the activity by him/herself with no assistance from a helper. 5-Set-up or Clean-up Assistance-helper sets up or cleans up; patient completes activity. [place] assists only prior to or following the activity. 4-Supervision or Touching Assistance-helper provides verbal cues and/or touching/steadying and/or contact guard assistance as patient completes activity. Assistance may be provided throughout the activity or intermittently. 3-Partial/Moderate Assistance-helper does LESS THAN HALF the effort. [place] lifts, holds or supports trunk or limbs, but provides less than half the effort. 2-Substantial/Maximal Assistance-helper does MORE THAN HALF the effort. [place] lifts or holds trunk or limbs and provides more than half the effort. 7-Hueoayebo-htjkfv does ALL the effort. Patient does none of the effort to complete the activity. Or, the assistance of 2 or more helpers is required for the patient to complete the activity. If activity was not attempted, code reason: 7-Patient Refused. 9-Not Applicable-not attempted and the patient did not perform the activity before the current illness, exacerbation or injury. 10-Not Attempted due to Environmental Limitations-(lack of equipment, weather restraints, etc.). 88-Not Attempted due to Medical Conditions or Safety Concerns. Sit to Stand (QC): 4 Weight Bearing Right Lower Extremity: Right Full Weight Bearing Left Lower Extremity: Left Weight Bearing/Tolerated Gait Training Does the Patient Walk?: Yes Distance: 200' Walk 10 feet (QC): 4 Walk 50 ft with 2 Turns(QC): 4 Walk 150 ft (QC): 4 Gait Assistive Device: FWW SBA to CGA with noted decreased step length/VC's for body placement in FWW Exercises Seated Therapy Exercises: Ankle pumps, Long arc quads Seated Reps: 15 Assessment Patient has improved with distance with gait training. Patient continues to c/o left hip pain. Increase activity as tolerated/allow by patient. PT Allergist Immunologist Goals Senior Living Goals PT Senior Living Goals Time Frame: Jul 20, 2021 Roll Left & Right (QC): 6 Sit to Lying (QC): 4 Lying-Sitting on Side/Bed(QC): 4 Sit to Stand (QC): 4 Chair/Lkr-or-Njwdo Xfer(QC): 4 Walk 10 feet (QC): 4 Walk 50ft with 2 Turns (QC): 4 PT Plan Treatment/Plan Treatment Plan: Continue Plan of Care Treatment Plan: Bed Mobility, Education, Functional Activity Josh, Functional Strength, Gait, Safety, Therapeutic Exercise, Transfers Treatment Duration: Jul 20, 2021 Frequency: 11 times per week Estimated Hrs Per Day: .25 hour per day Patient and/or Family Agrees t: Yes Time/GCodes Time In: 930 Time Out: 941 Total Billed Treatment Time: 11 Total Billed Treatment 1 visit GT 11 min TEGAN SAUL PT Jul 19, 2021 09:47
--- NOTE | 2021-07-19 10:14 | Progress Note - Ortho ---
Progress Note Subjective Date of Exam 07/19/21 Chief Complaint POD#7 Cemented bipolar hemiarthroplasty left hip For displaced subcapital fracture HPI/Events since last exam Mrs. Su is 7 days postop cemented bipolar hemiarthroplasty left hip for displaced subcapital fracture. She was up sitting in the chair when I saw her. She stated she is doing well and has no complaints. She has been up ambulating with a walker. Review of Systems Reviewed and no additions or change Allergies: Coded Allergies: cortisone (Verified Allergy, Unknown, 01/30/07) diphenhydramine (Verified Allergy, Unknown, 01/30/07) penicillin G (Verified Allergy, Unknown, 07/12/21) The patient is unaware that she has a penicillin allergy. She does not remember ever taking it and if she did what the reaction was. It has not been recently. Home Meds Reported Medications Furosemide (Furosemide) 20 Mg Tablet, 20 MG PO DAILY, TAB 07/12/21 Paroxetine HCl (Paroxetine HCl) 40 Mg Tablet, 40 MG PO HS, TAB 07/12/21 Trazodone HCl (Trazodone HCl) 50 Mg Tablet, 50 MG PO HS PRN for SLEEP, TAB 07/12/21 Atorvastatin Calcium (Atorvastatin Calcium) 20 Mg Tablet, 20 MG PO DAILY, TAB 07/12/21 Aspirin (Aspirin EC) 81 Mg Tablet.dr, 81 MG PO DAILY, TAB 10/22/20 Montelukast Sodium (Montelukast Sodium) 10 Mg Tablet, 10 MG PO HS, TAB 10/22/20 Lisinopril (Lisinopril) 40 Mg Tablet, 40 MG PO DAILY, TAB 10/22/20 Metoclopramide HCl (Metoclopramide HCl) 10 Mg Tablet, 10 MG PO BID, TAB 09/27/16 Cetirizine HCl (Cetirizine HCl) 10 Mg Tablet, 10 MG PO DAILY, TAB 09/27/16 Metoprolol Succinate (Metoprolol Succinate) 50 Mg Tab.er.24h, 50 MG PO DAILY, TAB LAST FILLED 01-26-2021 #90/90 DAY SUPPLY 09/27/16 Discontinued Reported Medications Tizanidine HCl (Tizanidine HCl) 2 Mg Capsule, 2 MG PO DAILY, CAP 11/18/20 Omeprazole (Omeprazole) 20 Mg Tab.rap.dr, 20 MG PO DAILY, EA 11/18/20 Methocarbamol (Methocarbamol) 750 Mg Tablet, 750 MG PO DAILY for Back Pain, TAB 11/18/20 Fluticasone Propionate (Flovent Hfa 110 mcg) 1 Ea Aero, 1 EA IH BID PRN for SHORTNESS OF BREATH, EA 10/22/20 Atorvastatin Calcium (Atorvastatin Calcium) 10 Mg Tablet, 10 MG PO DAILY, TAB 10/22/20 Hydrocodone/Acetaminophen (Hydrocodone-Acetamin 5-325 mg) 1 Each Tablet, 1 EA PO BID PRN for PAIN-MODERATE (5-7), TAB 10/22/20 Paroxetine HCl (Paroxetine HCl) 20 Mg Tablet, 20 MG PO DAILY, TAB 09/27/16 Discontinued Scripts Triamcinolone Acet (Triamcinolone Acetonide 0.1% Cream) 15 Gm Cr, 0 GM TOP BID PRN for ITCHING AND RASH, #1 TUBE Prov:MAE LENTZ DO 10/25/20 Pantoprazole Sodium (Pantoprazole Sodium) 40 Mg Tablet.dr, 40 MG PO DAILY, #30 TAB Prov:MAE LENTZ DO 10/25/20 Furosemide (Furosemide) 20 Mg Tablet, 20 MG PO BID@, #60 TAB Prov:MAE LENTZ DO 10/25/20 Objective Exam Constitutional: [] HEENT: [] Neck: [] Cardiovascular: [] Respiratory: [] Gastrointestinal: [] Genitourinary: [] Skin: [] Back/Spine: [] Extremities: [Her dressing is intact and she has a small amount of serous drainage on the dressing. It was last changed yesterday.No calf tenderness negative Homans. Normal sensation of the foot and toes with good cap refill. Equal pulses.Good strength with dorsiflexion plantarflexion of foot and ankle without pain] Neurologic: [] Psychiatric: [] Hematologic/lymphatic/immunologic: [] Vital Signs Vital Signs Date Time Temp Pulse Resp B/P (MAP) Pulse Ox O2 Delivery O2 Flow Rate FiO2 07/19/21 08:00 Nasal Cannula 1.00 07/19/21 07:25 35.8 80 18 188/81 (116) 93 Nasal Cannula 2.00 07/19/21 07:04 Nasal Cannula 1.00 07/19/21 07:01 97 Nasal Cannula 2.00 07/19/21 00:25 35.8 70 16 174/70 (104) 95 Nasal Cannula 2.00 07/18/21 21:12 97 Nasal Cannula 2.00 07/18/21 20:46 Nasal Cannula 2.00 07/18/21 16:23 35.6 70 18 97 Nasal Cannula 2.00 07/18/21 16:00 35.7 66 18 149/77 (101) 92 Nasal Cannula 2.00 I & O 07/19/21 06:59 Intake Total 1220 ml Output Total 325 ml Balance 895 ml Lab Results Laboratory Tests 07/18/21 11:54: Lab Scanned Report Transfusion Reaction Form 07/19/21 05:37: White Blood Count 4.6, Red Blood Count 2.67L, Hemoglobin 8.2L, Hematocrit 26L, M shanelle Corpuscular Volume 98, Mean Corpuscular Hemoglobin 31, Mean Corpuscular Hemoglobin Concent 31L, Red Cell Distribution Width 15.8H, Platelet Count 163, Mean Platelet Volume 10.4, Immature Granulocyte % (Auto) 1, Neutrophils (%) (Auto) 60, Lymphocytes (%) (Auto) 24, Monocytes (%) (Auto) 11, Eosinophils (%) (Auto) 3, Basophils (%) (Auto) 1, Neutrophils # (Auto) 2.7, Lymphocytes # (Auto) 1.1, Monocytes # (Auto) 0.5, Eosinophils # (Auto) 0.2, Basophils # (Auto) 0.0, Immature Granulocyte # (Auto) 0.1, Sodium Level 138, Potassium Level 3.8, Chloride Level 102, Carbon Dioxide Level 28, Anion Gap 8, Blood Urea Nitrogen 27H, Creatinine 0.83, Estimat Glomerular Filtration Rate 66, BUN/Creatinine Ratio 33, Glucose Level 104, Calcium Level 8.4L, Corrected Calcium 9.4, Total Bilirubin 0.7, Aspartate Amino Transf (AST/SGOT) 27, Alanine Aminotransferase (ALT/SGPT) 9, Alkaline Phosphatase 74, Total Protein 6.7, Albumin 2.7L Microbiology 07/15/21 Blood Culture - Preliminary, Resulted No growth 07/12/21 MRSA Screen - Final, Complete MRSA not isolated 07/12/21 Urine Culture - Final, Complete Escherichia coli Assessment and Plan Assessment Doing well 7 days postop Problem List Unchanged Plan Continue walker ambulation weightbearing as tolerated on the left.Can be discharged from an orthopedic point of view at any time Final Diagonsis Displaced subcapital fracture left hip status post cemented bipolar hemiarthroplasty Level of the visit: Level 3 Clinical Quality Measures DVT/VTE Risk/Contraindication: Contraindications-Pharm: Pt at low risk Other: or MEIR CUMMINGS MD Jul 19, 2021 10:14
--- NOTE | 2021-07-19 13:31 | Progress Note - Hospitalist ---
DARRYN IBRAHIM 07/19/21 1331: Subjective HPI/CC On Admission Date Seen by Provider: Jul 19, 2021 Time Seen by Provider: 08:20 CC: Left femoral neck fracture HPI: This is a [facility] patient who lives with her son and xdtmbwxm-ir-jmd who fell on the floor and suffered a left femoral neck fracture. Pt is very frail but appears to meet criteria for repair. Benefits outweigh the medical risk in my opinion. I have checked meds and labs and I have consulted cardiology and echocardiogram will be obtained to evaluate the systolic dysfunction that was seen on prior exam. Subjective/Events-last exam Patient and daughter agreed to go to [facility] yesterday. Information was sent in to insurance, just waiting for approval. Patient is feeling good, states her pain is well controlled. She was eating breakfast when I came in. State her feet feel swollen and hurt a little. Patient states she is urinating fine. Patient told me she had not had a bowel movement today, but her nurse let me know she did have one yesterday. Is still doing her walks with PT. Review of Systems Pulmonary: Dyspnea (on exertion ); No Cough Cardiovascular: No: Chest Pain, Palpitations Gastrointestinal: No: Nausea, Vomiting, Abdominal Pain Genitourinary: No Dysuria, No Frequency Objective Exam Vital Signs Vital Signs Date Time Temp Pulse Resp B/P (MAP) Pulse Ox O2 Delivery O2 Flow Rate FiO2 07/19/21 08:00 Nasal Cannula 1.00 07/19/21 07:25 35.8 80 18 188/81 (116) 93 Capillary Refill : Less Than 3 SecondsLess Than 3 Seconds General Appearance: No Apparent Distress, WD/WN Respiratory: Chest Non Tender, Lungs Clear, No Accessory Muscle Use, No Respiratory Distress, Decreased Breath Sounds Cardiovascular: Regular Rate, Rhythm, Normal Peripheral Pulses Rectal: Deferred Extremity: No Calf Tenderness, Pedal Edema (1+ bilat) Neurologic/Psychiatric: Alert, Oriented x3, Normal Mood/Affect Results/Procedures Lab Laboratory Tests 07/19/21 05:37 Patient resulted labs reviewed. Assessment/Plan Assessment and Plan Assess & Plan/Chief Complaint Assessment: L hip Fracture status post uncomplicated repair by Dr. Ledesma UTI on Rocephin Systolic congestive heart failure ejection fraction 40% Hypertension Decreased urinary output Acute kidney insufficiency Acute blood loss anemia requiring 2 units of transfusion Plan: Pain control Increase IV fluids Supportive care 07/14/2021: Transfuse PT and OT 07/15/2021: Septic work-up Check chest x-ray again today Lasix 40 mg x 1 07/16/2021: Antibiotics Diuresis Oxygen 07/17/2021: Supportive care Bowel regimen 07/18/2021: Continue Abx Continue Diuresis Continue bowel regimen Supportive care 07/19/2021: Continue medical management Rehab facility once approved Clinical Quality Measures DVT/VTE Risk/Contraindication: Contraindications-Pharm: Pt at low risk Other: or MAYA LENTZ DO 07/20/21 0608: Subjective Subjective/Events-last exam Pt doing better Walking in [place] Hgb 8.2 Awaiting senior living placement to [facility] Insurance approval pending Checked meds and labs Bowels are moving Review of Systems General: Fatigue, Malaise Musculoskeletal: leg pain Objective Exam General Appearance: No Apparent Distress, WD/WN, Chronically ill Respiratory: Lungs Clear, Normal Breath Sounds Cardiovascular: Regular Rate, Rhythm Neurologic/Psychiatric: Alert, Oriented x3 Assessment/Plan Assessment and Plan Assess & Plan/Chief Complaint correction placement Supervisory-Addendum Brief Verification & Attestation Participated in pt care: history, MDM, physical Personally performed: exam, history, MDM, supervision of care Care discussed with: Medical Student Procedures: n/a Results interpretation: Verified all documentation Verification and Attestation of Medical Student E/M Service A medical student performed and documented this service in my presence. I reviewed and verified all information documented by the medical student and made modifications to such information, when appropriate. I personally performed the physical exam and medical decision making. Maya Lentz Jul 20, 2021,06:07 DARRYN IBRAHIM Jul 19, 2021 13:31 MAYA LENTZ DO Jul 20, 2021 06:08
--- NOTE | 2021-07-19 13:45 | Physical Therapy Daily Note ---
PT Daily Note-Current Subjective Patient agrees to PT. Mental Status Attachments: Oxygen Transfers SCALE: Activities may be completed with or without assistive devices. 6-Fxongdiycd-ppcmbeg completes the activity by him/herself with no assistance from a helper. 5-Set-up or Clean-up Assistance-helper sets up or cleans up; patient completes activity. [place] assists only prior to or following the activity. 4-Supervision or Touching Assistance-helper provides verbal cues and/or touching/steadying and/or contact guard assistance as patient completes activity. Assistance may be provided throughout the activity or intermittently. 3-Partial/Moderate Assistance-helper does LESS THAN HALF the effort. [place] lifts, holds or supports trunk or limbs, but provides less than half the effort. 2-Substantial/Maximal Assistance-helper does MORE THAN HALF the effort. [place] lifts or holds trunk or limbs and provides more than half the effort. 7-Qrpzzyute-xinrov does ALL the effort. Patient does none of the effort to complete the activity. Or, the assistance of 2 or more helpers is required for the patient to complete the activity. If activity was not attempted, code reason: 7-Patient Refused. 9-Not Applicable-not attempted and the patient did not perform the activity before the current illness, exacerbation or injury. 10-Not Attempted due to Environmental Limitations-(lack of equipment, weather restraints, etc.). 88-Not Attempted due to Medical Conditions or Safety Concerns. Sit to Stand (QC): 4 Chair/Zbc-je-Rkfyt Xfer(QC): 4 Toilet Transfer (QC): 4 Weight Bearing Right Lower Extremity: Right Full Weight Bearing Left Lower Extremity: Left Weight Bearing/Tolerated Gait Training Distance: 25' Walk 10 feet (QC): 4 Exercises Seated Therapy Exercises: Ankle pumps, Long arc quads, Hip flexion Seated Reps: 15 (2 sets) Assessment Patient declined gait training this p.m. but did agree to seated exercise and toilet use. Patient remains up in recliner with needs met. PT Batch Roller Operator Goals Batch Roller Operator Goals PT Residential Goals Time Frame: Jul 20, 2021 Roll Left & Right (QC): 6 Sit to Lying (QC): 4 Lying-Sitting on Side/Bed(QC): 4 Sit to Stand (QC): 4 Chair/Deg-zj-Ltysc Xfer(QC): 4 Walk 10 feet (QC): 4 Walk 50ft with 2 Turns (QC): 4 PT Plan Treatment/Plan Treatment Plan: Continue Plan of Care Treatment Plan: Bed Mobility, Education, Functional Activity Josh, Functional Strength, Gait, Safety, Therapeutic Exercise, Transfers Treatment Duration: Jul 20, 2021 Frequency: 11 times per week Estimated Hrs Per Day: .25 hour per day Patient and/or Family Agrees t: Yes Time/GCodes Time In: 1300 Time Out: 1313 Total Billed Treatment Time: 13 Total Billed Treatment 1 visit EX 13 min TEGAN SAUL PT Jul 19, 2021 13:45
[2021-07-19 16:00] VITALS: BP 153/68
--- NOTE | 2021-07-19 18:32 | Cardiology Progress Note ---
Progress Note-Cardiology Events since last exam Date Seen by Provider: Jul 19, 2021 Time Seen by Provider: 18:27 Events since last exam I am following her due to heart failure. She remains in the hospital awaiting a rehab bed. She denies chest discomfort, dyspnea at rest, palpitations, syncope, or ankle edema. Certain portions of this document may have been dictated utilizing voice recognition technology. Inherent to this technology, typographical and grammatical errors may exist. As much as I am diligent to identify and correct these mistakes, some errors may remain in the document. Vitals Last set of Vitals Signs Vital Signs 07/19/21 07/19/21 16:00 16:25 Temp 35.7 Pulse 71 Resp 18 B/P (MAP) 153/68 (96) Pulse Ox 94 O2 Delivery Nasal Cannula O2 Flow Rate 1.00 Labs Labs Laboratory Tests 07/19/21 05:37 Exam Vital Signs Vital Signs Date Time Temp Pulse Resp B/P (MAP) Pulse Ox O2 Delivery O2 Flow Rate FiO2 07/19/21 16:25 94 Nasal Cannula 1.00 07/19/21 16:00 35.7 71 18 153/68 (96) Physical Exam General: Alert. No acute distress. She is obese. Eye: No xanthelasma. HENT: Normocephalic. Neck: Jugular venous pressure does not appear elevated. Respiratory: Lungs are clear to auscultation. Respirations are non-labored. Breath sounds are equal. Symmetrical chest wall expansion. Cardiovascular: Normal rate. Regular rhythm. 1/6 systolic ejection murmur. No gallop. No edema. Gastrointestinal: Soft. Normal bowel sounds. Skin: Warm. Dry. Neurologic: Alert and oriented to person, place, time. Cranial nerves 3-11 grossly intact. Psychiatric: Cooperative. Appropriate mood & affect. Labs Laboratory Tests Test 07/19/21 05:37 Range/Units White Blood Count 4.6 4.3-11.0 10^3/uL Red Blood Count 2.67 L 3.80-5.11 10^6/uL Hemoglobin 8.2 L 11.5-16.0 g/dL Hematocrit 26 L 35-52 % Mean Corpuscular Volume 98 80-99 fL Mean Corpuscular Hemoglobin 31 25-34 pg Mean Corpuscular Hemoglobin Concent 31 L 32-36 g/dL Red Cell Distribution Width 15.8 H 10.0-14.5 % Platelet Count 163 130-400 10^3/uL Mean Platelet Volume 10.4 9.0-12.2 fL Immature Granulocyte % (Auto) 1 % Neutrophils (%) (Auto) 60 42-75 % Lymphocytes (%) (Auto) 24 12-44 % Monocytes (%) (Auto) 11 0-12 % Eosinophils (%) (Auto) 3 0-10 % Basophils (%) (Auto) 1 0-10 % Neutrophils # (Auto) 2.7 1.8-7.8 10^3/uL Lymphocytes # (Auto) 1.1 1.0-4.0 10^3/uL Monocytes # (Auto) 0.5 0.0-1.0 10^3/uL Eosinophils # (Auto) 0.2 0.0-0.3 10^3/uL Basophils # (Auto) 0.0 0.0-0.1 10^3/uL Immature Granulocyte # (Auto) 0.1 0.0-0.1 10^3/uL Sodium Level 138 135-145 MMOL/L Potassium Level 3.8 3.6-5.0 MMOL/L Chloride Level 102 98-107 MMOL/L Carbon Dioxide Level 28 21-32 MMOL/L Anion Gap 8 5-14 MMOL/L Blood Urea Nitrogen 27 H 7-18 MG/DL Creatinine 0.83 0.60-1.30 MG/DL Estimat Glomerular Filtration Rate 66 BUN/Creatinine Ratio 33 Glucose Level 104 70-105 MG/DL Calcium Level 8.4 L 8.5-10.1 MG/DL Corrected Calcium 9.4 8.5-10.1 MG/DL Total Bilirubin 0.7 0.1-1.0 MG/DL Aspartate Amino Transf (AST/SGOT) 27 5-34 U/L Alanine Aminotransferase (ALT/SGPT) 9 0-55 U/L Alkaline Phosphatase 74 40-136 U/L Total Protein 6.7 6.4-8.2 GM/DL Albumin 2.7 L 3.2-4.5 GM/DL Diagnosis/Problems Diagnosis/Problems (1) Acute on chronic systolic heart failure Assessment & Plan: Her chest x-ray from 07/16 was improved. Clinically, she seems to be overall improved from a cardiac standpoint. She is probably euvolemic at this point in time. Continue lisinopril and metoprolol succinate as tolerated by blood pressure. These have been intermittently held due to low blood pressure. I resumed her oral furosemide which she was taking at home. (2) Cardiomyopathy Assessment & Plan: She had mild left ventricular systolic dysfunction on her most recent echocardiogram. She is on metoprolol succinate and lisinopril which should be continued as long as her blood pressure tolerates. (3) Primary hypertension Assessment & Plan: Blood pressures have been intermittently elevated. I will increase her dose of metoprolol and give her an extra dose today. (4) Coronary artery disease without angina pectoris Assessment & Plan: She has a history of coronary artery disease but is not having any angina at the present time. Continue aspirin, beta-amy, and statin medication. (5) Mixed hyperlipidemia Assessment & Plan: Continue atorvastatin. SHARATH JORDAN JR, MD Jul 19, 2021 18:32
[2021-07-19] MEDS: MONTELUKAST 10 MG (SINGULAIR) TAB PO SCH (21:29)
[2021-07-19] MEDS: PARoxetine 20 MG (PAXIL) TAB PO SCH (21:29)
[2021-07-20 00:03] VITALS: BP 172/77
[2021-07-20 06:09] LABS: BASOPHILS % (AUTO) 1 % (0-10); EOSINOPHILS # (AUTO) 0.1 10^3/uL (0.0-0.3); EOSINOPHILS % (AUTO) 2 % (0-10); HEMATOCRIT 26 % (35-52); HEMOGLOBIN 8.3 g/dL (11.5-16.0); LYMPHOCYTES % (AUTO) 20 % (12-44); MEAN CORPUSCULAR HEMOGLOBIN 31 pg (25-34); MEAN CORPUSCULAR HGB CONC 31 g/dL (32-36); MEAN CORPUSCULAR VOLUME 98 fL (80-99); MEAN PLATELET VOLUME 10.2 fL (9.0-12.2); MONOCYTES # (AUTO) 0.5 10^3/uL (0.0-1.0); MONOCYTES % (AUTO) 10 % (0-12); NEUTROPHILS # (AUTO) 3.4 10^3/uL (1.8-7.8); NEUTROPHILS % (AUTO) 66 % (42-75); PLATELET COUNT 192 10^3/uL (130-400); WHITE BLOOD COUNT 5.2 10^3/uL (4.3-11.0)
[2021-07-20] MEDS: ENOXAPARIN 40 MG/0.4 ML (LOVENOX) SYR SC SCH (06:19)
[2021-07-20] MEDS: CEFEPIME INJECTION 1,000 MG in NS (IVPB) 50 ML IV SCH ×3 (06:19→21:12)
[2021-07-20 06:30] LABS: ALBUMIN 2.8 GM/DL (3.2-4.5); POTASSIUM 3.8 MMOL/L (3.6-5.0)
[2021-07-20 06:31] LABS: CALCIUM 8.4 MG/DL (8.5-10.1)
[2021-07-20 06:32] LABS: TOTAL PROTEIN 6.8 GM/DL (6.4-8.2)
[2021-07-20 06:34] LABS: BILIRUBIN,TOTAL 0.8 MG/DL (0.1-1.0)
[2021-07-20 06:36] LABS: CREATININE SERUM 0.81 MG/DL (0.60-1.30)
[2021-07-20 07:39] VITALS: BP 185/81
[2021-07-20] MEDS: polyethylene glycoL POWDER 17 GM (MIRALAX) PACK PO SCH ×2 (08:24→20:13)
[2021-07-20] MEDS: lisINopril 20 MG (PRINIVIL) TABLET PO SCH (08:25)
[2021-07-20] MEDS: ACETAMINOPHEN 325 MG TABLET PO PRN (08:25)
[2021-07-20] MEDS: ASPIRIN E.C. 81 MG (ECOTRIN) TAB PO SCH (08:25)
[2021-07-20] MEDS: LORATADINE (CLARITIN) 10 MG TAB PO SCH (08:25)
[2021-07-20] MEDS: SENNA W/DOCUSATE (SENOKOT S) TABLET PO SCH ×2 (08:25→20:13)
[2021-07-20] MEDS: METOCLOPRAMIDE 10 MG (REGLAN) TAB PO SCH ×2 (08:25→20:13)
[2021-07-20] MEDS: meTOprolol SUCCINATE 100 MG (TOPROL XL) TAB PO SCH (08:25)
[2021-07-20] MEDS: RT-ALBUTEROL SULF 2.5 MG/3 ML PRE-MIX VIAL INH SCH ×3 (08:39→22:11)
[2021-07-20] MEDS: FUROSEMIDE 20 MG (LASIX) TAB PO SCH (08:39)
--- NOTE | 2021-07-20 10:43 | Physical Therapy Daily Note ---
PT Daily Note-Current Subjective Patient in recliner pre tx, agrees to PT, has 7/10 pain in left leg. Appearance Patient in recliner post tx with nurse call, phone, tray, all needs met. Mental Status Patient Orientation: Person, Place, Situation Attachments: Oxygen Transfers SCALE: Activities may be completed with or without assistive devices. 5-Nvjgezwiuj-fmgmlzm completes the activity by him/herself with no assistance from a helper. 5-Set-up or Clean-up Assistance-helper sets up or cleans up; patient completes activity. [place] assists only prior to or following the activity. 4-Supervision or Touching Assistance-helper provides verbal cues and/or touching/steadying and/or contact guard assistance as patient completes activity. Assistance may be provided throughout the activity or intermittently. 3-Partial/Moderate Assistance-helper does LESS THAN HALF the effort. [place] lifts, holds or supports trunk or limbs, but provides less than half the effort. 2-Substantial/Maximal Assistance-helper does MORE THAN HALF the effort. [place] lifts or holds trunk or limbs and provides more than half the effort. 3-Opqitnzci-kdwlsr does ALL the effort. Patient does none of the effort to complete the activity. Or, the assistance of 2 or more helpers is required for the patient to complete the activity. If activity was not attempted, code reason: 7-Patient Refused. 9-Not Applicable-not attempted and the patient did not perform the activity before the current illness, exacerbation or injury. 10-Not Attempted due to Environmental Limitations-(lack of equipment, weather restraints, etc.). 88-Not Attempted due to Medical Conditions or Safety Concerns. Sit to Stand (QC): 4 Chair/Hfb-hy-Ahfdb Xfer(QC): 4 Weight Bearing Right Lower Extremity: Right Full Weight Bearing Left Lower Extremity: Left Weight Bearing/Tolerated Gait Training Distance: 150' Walk 10 feet (QC): 4 Walk 50 ft with 2 Turns(QC): 4 Walk 150 ft (QC): 4 Gait Persons Needed: 1 Gait Assistive Device: FWW CGA, very slow, antalgic ambulation, decreased step through on the right side due to pain on the left side. Patient has a wandering path and needs cues to stay on task and for positioning and safety. Exercises Seated Therapy Exercises: Ankle pumps, Long arc quads Seated Reps: 20 Treatments transfers, ambulation, LE strengthening Assessment Current Status: Fair Progress slow progress, gets distracted easily PT Quill Fixer Goals [facility] Goals PT [facility] Goals Time Frame: Jul 20, 2021 Roll Left & Right (QC): 6 Sit to Lying (QC): 4 Lying-Sitting on Side/Bed(QC): 4 Sit to Stand (QC): 4 Chair/Mip-bs-Eotke Xfer(QC): 4 Walk 10 feet (QC): 4 Walk 50ft with 2 Turns (QC): 4 PT Plan Problem List Problem List: Activity Tolerance, Functional Strength, Safety, Balance, Gait, Transfer, Bed Mobility, ROM Treatment/Plan Treatment Plan: Continue Plan of Care Treatment Plan: Bed Mobility, Education, Functional Activity Josh, Functional Strength, Gait, Safety, Therapeutic Exercise, Transfers Treatment Duration: Jul 20, 2021 Frequency: 11 times per week Estimated Hrs Per Day: .25 hour per day Patient and/or Family Agrees t: Yes Safety Risks/Education Patient Education: Gait Training, Transfer Techniques, Correct Positioning, Safety Issues Teaching Recipient: Patient Teaching Methods: Demonstration, Discussion Response to Teaching: Reinforcement Needed Time/GCodes Time In: 1006 Time Out: 1018 Total Billed Treatment Time: 12 Total Billed Treatment 1 visit FA YUE JOHNSON PT Jul 20, 2021 10:43
--- NOTE | 2021-07-20 11:17 | Occupational Ther Daily Note ---
OT Current Status-Daily Note Subjective Pt alert, sitting in recliner. Pt agrees to therapy. No c/o pain only fatigue. Mental Status/Objective Patient Orientation: Person, Place, Time, Situation Attachments: IV, Oxygen (1L) ADL-Treatment After supplies were gathered, pt able to complete oral care by self. Pt then requested to use bathroom. Pt ambulated bathroom and transferred to toilet using FWW with CGA. Assist to manipulate clothing and pt attempted to cleanse self. Assist to cleanse for thoroughness. After session, pt sitting in recliner with call light/phone in reach. Nrsg in room. All needs met in room. Therapy Code Descriptions/Definitions Functional [place] Measure: 0=Not Assessed/NA 4=Minimal Assistance 1=Total Assistance 5=Supervision or Setup 2=Maximal Assistance 6=Modified [place] 3=Moderate Assistance 7=Complete IndependenceSCALE: Activities may be completed with or without assistive devices. 5-Xjjxjnsnjr-kdwyebe completes the activity by him/herself with no assistance from a helper. 5-Set-up or Clean-up Assistance-helper sets up or cleans up; patient completes activity. [place] assists only prior to or following the activity. 4-Supervision or Touching Assistance-helper provides verbal cues and/or touching/steadying and/or contact guard assistance as patient completes activity. Assistance may be provided throughout the activity or intermittently. 3-Partial/Moderate Assistance-helper does LESS THAN HALF the effort. [place] lifts, holds or supports trunk or limbs, but provides less than half the effort. 2-Substantial/Maximal Assistance-helper does MORE THAN HALF the effort. [place] lifts or holds trunk or limbs and provides more than half the effort. 4-Aolphwwxz-dkutrp does ALL the effort. Patient does none of the effort to complete the activity. Or, the assistance of 2 or more helpers is required for the patient to complete the activity. If activity was not attempted, code reason: 7-Patient Refused. 9-Not Applicable-not attempted and the patient did not perform the activity before the current illness, exacerbation or injury. 10-Not Attempted due to Environmental Limitations-(lack of equipment, weather restraints, etc.). 88-Not Attempted due to Medical Conditions or Safety Concerns. Oral Hygiene (QC): 5 Toileting Hygiene (QC): 3 Toilet Transfer (QC): 4 OT Jail Goals Jail Goals Time Frame: Jul 27, 2021 Oral Hygiene (QC): 5 Toileting Hygiene (QC): 4 Shower/Bathe Self (QC): 4 Upper Body Dressing (QC): 5 Lower Body Dressing (QC): 4 On/Off Footwear (QC): 4 1=Demonstrate adherence to instructed precautions during ADL tasks. 2=Patient will verbalize/demonstrate understanding of assistive devices/modifications for ADL. 3=Patient will improve strength/tolerance for activity to enable patient to perform ADL's. OT Education/Plan Problem List/Assessment Assessment: Decreased Activ Tolerance, Impaired Self-Care Skills Discharge Recommendations Plan/Recommendations: Continue POC Treatment Plan/Plan of Care Patient would benefit from OT for education, treatment and training to promote independence in ADL's, mobility, safety and/or upper extremity function for ADL's. Plan of Care: ADL Retraining, Functional Mobility, UE Funct Exercise/Act, W/C Management Training Treatment Duration: Jul 27, 2021 Frequency: 3 times per week Estimated Hrs Per Day: .25 hour per day Rehab Potential: Fair Time/GCodes Start Time: 10:30 Stop Time: 10:43 Total Time Billed (hr/min): 13 Billed Treatment Time 1 visit-ADL 1 (13 min) NATHAN BURT Jul 20, 2021 11:17
[2021-07-20 12:26] VITALS: BP 167/73
--- NOTE | 2021-07-20 12:34 | Progress Note - Hospitalist ---
DARRYN IBRAHIM 07/20/21 1234: Subjective HPI/CC On Admission Date Seen by Provider: Jul 20, 2021 Time Seen by Provider: 08:10 CC: Left femoral neck fracture HPI: This is a [facility] patient who lives with her son and wyiysbjp-wb-pfx who fell on the floor and suffered a left femoral neck fracture. Pt is very frail but appears to meet criteria for repair. Benefits outweigh the medical risk in my opinion. I have checked meds and labs and I have consulted cardiology and echocardiogram will be obtained to evaluate the systolic dysfunction that was seen on prior exam. Subjective/Events-last exam Patient walked today with PT already. States she feels okay, her pain is well controlled. Started using IS yesterday. Still waiting on insurance approval for rehab facility placement. Review of Systems HEENT: No Head Aches Pulmonary: Dyspnea (exertional); No Cough Cardiovascular: No: Chest Pain, Palpitations Gastrointestinal: No: Nausea, Vomiting Genitourinary: No Dysuria, No Frequency Objective Exam Vital Signs Vital Signs Date Time Temp Pulse Resp B/P (MAP) Pulse Ox O2 Delivery O2 Flow Rate FiO2 07/20/21 12:26 35.8 68 20 167/73 (104) 95 1.00 07/20/21 09:00 Nasal Cannula Capillary Refill : Less Than 3 SecondsLess Than 3 Seconds General Appearance: No Apparent Distress, WD/WN Respiratory: Chest Non Tender, Lungs Clear, Normal Breath Sounds, No Accessory Muscle Use, No Respiratory Distress Cardiovascular: Regular Rate, Rhythm, Normal Peripheral Pulses Rectal: Deferred Extremity: Normal Inspection, No Calf Tenderness, No Pedal Edema Neurologic/Psychiatric: Alert, Oriented x3, Normal Mood/Affect Results/Procedures Lab Laboratory Tests 07/20/21 05:25 Patient resulted labs reviewed. Assessment/Plan Assessment and Plan Assess & Plan/Chief Complaint Assessment: L hip Fracture status post uncomplicated repair by Dr. Ledesma UTI on Rocephin Systolic congestive heart failure ejection fraction 40% Hypertension Decreased urinary output Acute kidney insufficiency Acute blood loss anemia requiring 2 units of transfusion Plan: Pain control Increase IV fluids Supportive care 07/14/2021: Transfuse PT and OT 07/15/2021: Septic work-up Check chest x-ray again today Lasix 40 mg x 1 07/16/2021: Antibiotics Diuresis Oxygen 07/17/2021: Supportive care Bowel regimen 07/18/2021: Continue Abx Continue Diuresis Continue bowel regimen Supportive care 07/19/2021: Continue medical management Rehab facility once approved 07/20/2021: Continue medical management PT/OT IS Rehab facility once insurance approves Clinical Quality Measures DVT/VTE Risk/Contraindication: Contraindications-Pharm: Pt at low risk Other: or MAYA LENTZ DO 07/21/21 0540: Subjective Subjective/Events-last exam Pt doing about the same Hgb 8.3 Bowels are moving well Pain is pretty well controlled Review of Systems Musculoskeletal: leg pain Objective Exam General Appearance: No Apparent Distress, WD/WN, Chronically ill Respiratory: Lungs Clear, Normal Breath Sounds Cardiovascular: Regular Rate, Rhythm Neurologic/Psychiatric: Alert, Oriented x3 Assessment/Plan Assessment and Plan Assess & Plan/Chief Complaint Awaiting insurance approval Supervisory-Addendum Brief Verification & Attestation Participated in pt care: history, MDM, physical Personally performed: exam, history, MDM, supervision of care Care discussed with: Medical Student Procedures: n/a Results interpretation: Verified all documentation Verification and Attestation of Medical Student E/M Service A medical student performed and documented this service in my presence. I reviewed and verified all information documented by the medical student and made modifications to such information, when appropriate. I personally performed the physical exam and medical decision making. Maya Lentz Jul 21, 2021,05:39 DARRYN IBRAHIM Jul 20, 2021 12:34 MAYA LENTZ DO Jul 21, 2021 05:40
[2021-07-20 16:00] VITALS: BP 163/71
--- NOTE | 2021-07-20 16:01 | Physical Therapy Daily Note ---
PT Daily Note-Current Subjective Patient lying supine in bed upon PT arrival, agreeable to treatment. Patient rates pain at 7/10 in left hip Mental Status Patient Orientation: Person Attachments: Oxygen Transfers SCALE: Activities may be completed with or without assistive devices. 6-Lvssojlkky-henvnsy completes the activity by him/herself with no assistance from a helper. 5-Set-up or Clean-up Assistance-helper sets up or cleans up; patient completes activity. [place] assists only prior to or following the activity. 4-Supervision or Touching Assistance-helper provides verbal cues and/or touching/steadying and/or contact guard assistance as patient completes activity. Assistance may be provided throughout the activity or intermittently. 3-Partial/Moderate Assistance-helper does LESS THAN HALF the effort. [place] lifts, holds or supports trunk or limbs, but provides less than half the effort. 2-Substantial/Maximal Assistance-helper does MORE THAN HALF the effort. [place] lifts or holds trunk or limbs and provides more than half the effort. 7-Jfogptifj-iwpcyx does ALL the effort. Patient does none of the effort to complete the activity. Or, the assistance of 2 or more helpers is required for the patient to complete the activity. If activity was not attempted, code reason: 7-Patient Refused. 9-Not Applicable-not attempted and the patient did not perform the activity before the current illness, exacerbation or injury. 10-Not Attempted due to Environmental Limitations-(lack of equipment, weather restraints, etc.). 88-Not Attempted due to Medical Conditions or Safety Concerns. Roll Left & Right (QC): 4 Sit to Lying (QC): 4 Lying to Sitting/Side of Bed(Q: 3 Sit to Stand (QC): 3 Chair/Gse-kf-Kcfui Xfer(QC): 4 Weight Bearing Right Lower Extremity: Right Full Weight Bearing Left Lower Extremity: Left Weight Bearing/Tolerated Gait Training Does the Patient Walk?: Yes Distance: 120 Walk 10 feet (QC): 4 Walk 50 ft with 2 Turns(QC): 4 Gait Assistive Device: FWW Exercises Supine Ex: Ankle pumps, Quad Set, Glut sets, Heel Slides, Short Arc Quads, Straight leg raise, Hip abd/add Supine Reps: 20 Assessment Current Status: Fair Progress Patient lying supine in bed upon PT arrival, tolerates LE exercise well. Patient performs all observed bed mobility and transfers with CGA.to min A. She appears to demonstrate increased difficulty with bed mobility this afternoon.Patient ambulates 120 feet with FWW, with CGA and verbal cues for safety, progression, posture and control of the FWW. Patient tends to veer to the left at times and demonstrates difficulty controlling the FWW. Patient in bed post treatment with all needs met, nursing notified, call light in hand. PT Bicycle Messenger Goals Half-Way Goals PT Half-Way Goals Time Frame: Jul 20, 2021 Roll Left & Right (QC): 6 Sit to Lying (QC): 4 Lying-Sitting on Side/Bed(QC): 4 Sit to Stand (QC): 4 Chair/Oij-ag-Bomlg Xfer(QC): 4 Walk 10 feet (QC): 4 Walk 50ft with 2 Turns (QC): 4 PT Plan Treatment/Plan Treatment Plan: Continue Plan of Care Treatment Plan: Bed Mobility, Education, Functional Activity Josh, Functional Strength, Gait, Safety, Therapeutic Exercise, Transfers Treatment Duration: Jul 20, 2021 Frequency: 11 times per week Estimated Hrs Per Day: .25 hour per day Patient and/or Family Agrees t: Yes Safety Risks/Education Patient Education: Gait Training, Transfer Techniques Teaching Recipient: Patient Teaching Methods: Demonstration, Discussion Response to Teaching: Verbalize Understanding, Reinforcement Needed Time/GCodes Time In: 1525 Time Out: 1549 Total Billed Treatment Time: 24 Total Billed Treatment Visit, Daniela, LAKISHA Champagne PT Jul 20, 2021 16:01
--- NOTE | 2021-07-20 16:51 | Cardiology Progress Note ---
Progress Note-Cardiology Events since last exam Date Seen by Provider: Jul 20, 2021 Time Seen by Provider: 16:48 Events since last exam I am following her due to heart failure after hip fracture status post repair. She remains in the hospital awaiting an inpatient rehab bed. Yesterday I adjusted her beta-amy due to persistent hypertension. She denies chest discomfort, dyspnea at rest, palpitations, syncope, or ankle edema. Certain portions of this document may have been dictated utilizing voice mariella gnition technology. Inherent to this technology, typographical and grammatical errors may exist. As much as I am diligent to identify and correct these mistakes, some errors may remain in the document. Vitals Last set of Vitals Signs Vital Signs 07/20/21 07/20/21 12:26 15:14 Temp 35.8 Pulse 68 Resp 20 B/P (MAP) 167/73 (104) Pulse Ox 96 O2 Delivery Nasal Cannula O2 Flow Rate 1.00 Labs Labs Laboratory Tests 07/20/21 05:25 Exam Vital Signs Vital Signs Date Time Temp Pulse Resp B/P (MAP) Pulse Ox O2 Delivery O2 Flow Rate FiO2 07/20/21 15:14 96 Nasal Cannula 1.00 07/20/21 12:26 35.8 68 20 167/73 (104) Physical Exam General: Alert. No acute distress. She is obese. Eye: No xanthelasma. HENT: Normocephalic. Neck: Jugular venous pressure does not appear elevated. Respiratory: Lungs are clear to auscultation. Respirations are non-labored. Breath sounds are equal. Symmetrical chest wall expansion. Cardiovascular: Normal rate. Regular rhythm. 1/6 systolic ejection murmur. No gallop. No edema. Gastrointestinal: Soft. Normal bowel sounds. Skin: Warm. Dry. Neurologic: Alert and oriented to person, place, time. Cranial nerves 3-11 grossly intact. Psychiatric: Cooperative. Appropriate mood & affect. Labs Laboratory Tests Test 07/20/21 05:25 Range/Units White Blood Count 5.2 4.3-11.0 10^3/uL Red Blood Count 2.70 L 3.80-5.11 10^6/uL Hemoglobin 8.3 L 11.5-16.0 g/dL Hematocrit 26 L 35-52 % Mean Corpuscular Volume 98 80-99 fL Mean Corpuscular Hemoglobin 31 25-34 pg Mean Corpuscular Hemoglobin Concent 31 L 32-36 g/dL Red Cell Distribution Width 15.9 H 10.0-14.5 % Platelet Count 192 130-400 10^3/uL Mean Platelet Volume 10.2 9.0-12.2 fL Immature Granulocyte % (Auto) 1 % Neutrophils (%) (Auto) 66 42-75 % Lymphocytes (%) (Auto) 20 12-44 % Monocytes (%) (Auto) 10 0-12 % Eosinophils (%) (Auto) 2 0-10 % Basophils (%) (Auto) 1 0-10 % Neutrophils # (Auto) 3.4 1.8-7.8 10^3/uL Lymphocytes # (Auto) 1.0 1.0-4.0 10^3/uL Monocytes # (Auto) 0.5 0.0-1.0 10^3/uL Eosinophils # (Auto) 0.1 0.0-0.3 10^3/uL Basophils # (Auto) 0.0 0.0-0.1 10^3/uL Immature Granulocyte # (Auto) 0.1 0.0-0.1 10^3/uL Sodium Level 135 135-145 MMOL/L Potassium Level 3.8 3.6-5.0 MMOL/L Chloride Level 100 98-107 MMOL/L Carbon Dioxide Level 29 21-32 MMOL/L Anion Gap 6 5-14 MMOL/L Blood Urea Nitrogen 21 H 7-18 MG/DL Creatinine 0.81 0.60-1.30 MG/DL Estimat Glomerular Filtration Rate 68 BUN/Creatinine Ratio 26 Glucose Level 104 70-105 MG/DL Calcium Level 8.4 L 8.5-10.1 MG/DL Corrected Calcium 9.4 8.5-10.1 MG/DL Total Bilirubin 0.8 0.1-1.0 MG/DL Aspartate Amino Transf (AST/SGOT) 28 5-34 U/L Alanine Aminotransferase (ALT/SGPT) 12 0-55 U/L Alkaline Phosphatase 77 40-136 U/L Total Protein 6.8 6.4-8.2 GM/DL Albumin 2.8 L 3.2-4.5 GM/DL Diagnosis/Problems Diagnosis/Problems (1) Acute on chronic systolic heart failure Assessment & Plan: Her chest x-ray from 07/16 was improved. Clinically, she seems to be overall improved from a cardiac standpoint. She is probably euvolemic at this point in time. Continue lisinopril and metoprolol succinate as tolerated by blood pressure. These have been intermittently held due to low blood pressure. I resumed her oral furosemide which she was taking at home. (2) Primary hypertension Assessment & Plan: Blood pressures have been intermittently elevated. I increased her dose of metoprolol on 07/19. This may take a week or 2 to see its full effect. She is on the maximum dose of lisinopril. I would avoid aggressively increasing the antihypertensive medication or she may develop hypotension. (3) Cardiomyopathy Assessment & Plan: She had mild left ventricular systolic dysfunction on her most recent echocardiogram. She is on metoprolol succinate and lisinopril which should be continued as long as her blood pressure tolerates. (4) Coronary artery disease without angina pectoris Assessment & Plan: She has a history of coronary artery disease but is not having any angina at the present time. Continue aspirin, beta-amy, and statin medication. (5) Mixed hyperlipidemia Assessment & Plan: Continue atorvastatin. SHARATH JORDAN JR, MD Jul 20, 2021 16:51
[2021-07-20] MEDS ORDERED: meTOproloL SUCCINATE 50 MG (TOPROL XL) TAB PO ONE (18:45)
[2021-07-20] MEDS: PARoxetine 20 MG (PAXIL) TAB PO SCH (20:13)
[2021-07-20] MEDS: MONTELUKAST 10 MG (SINGULAIR) TAB PO SCH (20:13)
[2021-07-21] VITALS (7 sets, daily range): BP systolic 136–201; BP diastolic 75–85
[2021-07-21] MEDS: ENOXAPARIN 40 MG/0.4 ML (LOVENOX) SYR SC SCH (05:11)
[2021-07-21] MEDS: cloNIDine 0.1 MG (CATAPRES) TAB PO PRN (05:11)
[2021-07-21] MEDS: CEFEPIME INJECTION 1,000 MG in NS (IVPB) 50 ML IV SCH ×3 (05:12→21:08)
[2021-07-21 06:15] LABS: BASOPHILS % (AUTO) 1 % (0-10); EOSINOPHILS # (AUTO) 0.1 10^3/uL (0.0-0.3); EOSINOPHILS % (AUTO) 2 % (0-10); HEMATOCRIT 28 % (35-52); HEMOGLOBIN 8.8 g/dL (11.5-16.0); LYMPHOCYTES # (AUTO) 1.1 10^3/uL (1.0-4.0); LYMPHOCYTES % (AUTO) 21 % (12-44); MEAN CORPUSCULAR HEMOGLOBIN 30 pg (25-34); MEAN CORPUSCULAR HGB CONC 31 g/dL (32-36); MEAN CORPUSCULAR VOLUME 98 fL (80-99); MEAN PLATELET VOLUME 10.5 fL (9.0-12.2); MONOCYTES # (AUTO) 0.6 10^3/uL (0.0-1.0); MONOCYTES % (AUTO) 11 % (0-12); NEUTROPHILS # (AUTO) 3.5 10^3/uL (1.8-7.8); NEUTROPHILS % (AUTO) 65 % (42-75); PLATELET COUNT 227 10^3/uL (130-400); WHITE BLOOD COUNT 5.4 10^3/uL (4.3-11.0)
[2021-07-21 06:36] LABS: ALBUMIN 2.9 GM/DL (3.2-4.5)
[2021-07-21 06:38] LABS: CALCIUM 8.6 MG/DL (8.5-10.1)
[2021-07-21 06:39] LABS: TOTAL PROTEIN 7.2 GM/DL (6.4-8.2)
[2021-07-21 06:41] LABS: BILIRUBIN,TOTAL 0.9 MG/DL (0.1-1.0)
[2021-07-21 06:43] LABS: CREATININE SERUM 0.81 MG/DL (0.60-1.30)
--- NOTE | 2021-07-21 09:45 | Physical Therapy Daily Note ---
PT Daily Note-Current Subjective Patient agrees to PT. Pain Numeric Pain Scale: 5-Moderate Pain Location: Left Location Body Site: Hip Pain Description: Acute Mental Status Patient Orientation: Person, Time, Situation Attachments: Oxygen Transfers SCALE: Activities may be completed with or without assistive devices. 2-Cbbriwuwle-yqhsbrv completes the activity by him/herself with no assistance from a helper. 5-Set-up or Clean-up Assistance-helper sets up or cleans up; patient completes activity. [place] assists only prior to or following the activity. 4-Supervision or Touching Assistance-helper provides verbal cues and/or touching/steadying and/or contact guard assistance as patient completes activity. Assistance may be provided throughout the activity or intermittently. 3-Partial/Moderate Assistance-helper does LESS THAN HALF the effort. [place] lifts, holds or supports trunk or limbs, but provides less than half the effort. 2-Substantial/Maximal Assistance-helper does MORE THAN HALF the effort. [place] lifts or holds trunk or limbs and provides more than half the effort. 4-Vgayxunic-jsdiho does ALL the effort. Patient does none of the effort to complete the activity. Or, the assistance of 2 or more helpers is required for the patient to complete the activity. If activity was not attempted, code reason: 7-Patient Refused. 9-Not Applicable-not attempted and the patient did not perform the activity before the current illness, exacerbation or injury. 10-Not Attempted due to Environmental Limitations-(lack of equipment, weather restraints, etc.). 88-Not Attempted due to Medical Conditions or Safety Concerns. Sit to Stand (QC): 4 Weight Bearing Right Lower Extremity: Right Full Weight Bearing Left Lower Extremity: Left Weight Bearing/Tolerated Gait Training Distance: 150' Walk 10 feet (QC): 4 Walk 50 ft with 2 Turns(QC): 4 Walk 150 ft (QC): 4 Gait Assistive Device: FWW slow step to gait sequence/VC's for body placement in FWW and gait sequence Exercises Seated Therapy Exercises: Ankle pumps, Long arc quads Seated Reps: 15 Assessment Patient continues to have left lean posture in sit and stand with noted cervical left side flexed posture. Patient remains up in recliner. PT Java Grails Developer Goals Senior Care Goals PT Senior Care Goals Time Frame: Jul 20, 2021 Roll Left & Right (QC): 6 Sit to Lying (QC): 4 Lying-Sitting on Side/Bed(QC): 4 Sit to Stand (QC): 4 Chair/Xwj-dk-Oruub Xfer(QC): 4 Walk 10 feet (QC): 4 Walk 50ft with 2 Turns (QC): 4 PT Plan Treatment/Plan Treatment Plan: Continue Plan of Care Treatment Plan: Bed Mobility, Education, Functional Activity Josh, Functional Strength, Gait, Safety, Therapeutic Exercise, Transfers Treatment Duration: Jul 20, 2021 Frequency: 11 times per week Estimated Hrs Per Day: .25 hour per day Patient and/or Family Agrees t: Yes Time/GCodes Time In: 850 Time Out: 901 Total Billed Treatment Time: 11 Total Billed Treatment 1 visit GT 11 min TEGAN SAUL PT Jul 21, 2021 09:45
[2021-07-21] MEDS: ASPIRIN E.C. 81 MG (ECOTRIN) TAB PO SCH (10:16)
[2021-07-21] MEDS: METOCLOPRAMIDE 10 MG (REGLAN) TAB PO SCH ×2 (10:17→21:07)
[2021-07-21] MEDS: LORATADINE (CLARITIN) 10 MG TAB PO SCH (10:17)
[2021-07-21] MEDS: lisINopril 20 MG (PRINIVIL) TABLET PO SCH (10:17)
[2021-07-21] MEDS: FUROSEMIDE 20 MG (LASIX) TAB PO SCH (10:17)
[2021-07-21] MEDS: IRON SUCROSE 200 MG/10 ML (VENOFER) VIAL IV SCH (10:17)
[2021-07-21] MEDS: amLODIPine 5 MG (NORVASC) TAB PO SCH (10:17)
[2021-07-21] MEDS: SENNA W/DOCUSATE (SENOKOT S) TABLET PO SCH ×2 (10:18→21:07)
[2021-07-21] MEDS: meTOprolol SUCCINATE 100 MG (TOPROL XL) TAB PO SCH (10:18)
[2021-07-21] MEDS: polyethylene glycoL POWDER 17 GM (MIRALAX) PACK PO SCH ×2 (10:18→21:00)
[2021-07-21] MEDS: RT-ALBUTEROL SULF 2.5 MG/3 ML PRE-MIX VIAL INH SCH ×2 (10:47→21:19)
[2021-07-21] MEDS ORDERED: TRZ50T PO (11:46)
[2021-07-21] MEDS ORDERED: SENN1TAB76 PO (11:46)
[2021-07-21] MEDS ORDERED: ENOX40DI8 SC (11:46)
[2021-07-21] MEDS ORDERED: MTC10T PO (11:46)
[2021-07-21] MEDS ORDERED: LISI40TA9 PO (11:46)
[2021-07-21] MEDS ORDERED: ATOR20TA66 PO (11:46)
[2021-07-21] MEDS ORDERED: AMLO-250 PO (11:46)
[2021-07-21] MEDS ORDERED: CETI10TA17 PO (11:46)
[2021-07-21] MEDS ORDERED: FURO20TA4 PO (11:46)
[2021-07-21] MEDS ORDERED: MTP100TCR PO (11:46)
[2021-07-21] MEDS ORDERED: ACHYD1T PO (11:46)
[2021-07-21] MEDS ORDERED: PARO40TA3 PO (11:46)
[2021-07-21] MEDS ORDERED: MONT-40 PO (11:46)
[2021-07-21] MEDS ORDERED: ASPI-1238 PO (11:46)
--- NOTE | 2021-07-21 11:47 | Discharge Inst-Skilled Nursing ---
Discharge Inst-Skilled NF Reconcile Patient Problems Problems Reviewed?: Yes Chief Complaint CC: Left femoral neck fracture HPI: This is a [facility] patient who lives with her son and [id number] who fell on the floor and suffered a left femoral neck fracture. Pt is very frail but appears to meet criteria for repair. Benefits outweigh the medical risk in my opinion. I have checked meds and labs and I have consulted cardiology and echocardiogram will be obtained to evaluate the systolic dysfunction that was seen on prior exam. Patient Instructions Patient Problems: Hip fracture Goal: Return home Consult/Follow Up/Orders Follow Up Appt.: PCP 1 week Skilled NF Admit to: [facility] ([facility]) I certify that SNF services are required to be given on an inpatient basis because of the above named patient's need for prison care on a continuing basis for the conditions(s) for which he/she was receiving inpatient hospital services prior to his/her transfer to the [facility]. Detention Facility Order: Nursing Services, Apprentice Lineman Third Step-Evaluate & Treat, Physical Therapy-Evaluate & Treat Oxygen Delivery Method: Nasal Cannula Discharge Diet: No Restrictions New & Resume Previous Orders New Medications: Amlodipine Besylate (Amlodipine Besylate) 5 Mg Tablet 5 MG PO DAILY, #30 TAB Enoxaparin Sodium (Enoxaparin Sodium) 40 Mg/0.4 Ml Syringe 40 MG SC Q24H, #14 SYRINGE Hydrocodone Bit/Acetaminophen (HYDROcodone/APAP 10/325 TABLET) 1 Ea Tab 1 EA PO Q4H PRN for PAIN-MODERATE (5-7), #20 TAB Metoprolol Succinate (Metoprolol Succinate) 100 Mg Tab.er.24h 100 MG PO DAILY, #30 TAB Sennosides/Docusate Sodium (Stool Softener-Laxative Tablet) 1 Each Tablet 2 EA PO BID, #60 TAB Continued Medications: Aspirin (Aspirin EC) 81 Mg Tablet.dr 81 MG PO DAILY, #30 TAB (This prescription has been renewed) Atorvastatin Calcium (Atorvastatin Calcium) 20 Mg Tablet 20 MG PO DAILY, #30 TAB (This prescription has been renewed) Cetirizine HCl (Cetirizine HCl) 10 Mg Tablet 10 MG PO DAILY, #30 TAB (This prescription has been renewed) Furosemide (Furosemide) 20 Mg Tablet 20 MG PO DAILY, #30 TAB (This prescription has been renewed) Lisinopril (Lisinopril) 40 Mg Tablet 40 MG PO DAILY, #30 TAB (This prescription has been renewed) Metoclopramide HCl (Metoclopramide HCl) 10 Mg Tablet 10 MG PO BID, #60 TAB (This prescription has been renewed) Montelukast Sodium (Montelukast Sodium) 10 Mg Tablet 10 MG PO HS, #30 TAB (This prescription has been renewed) Paroxetine HCl (Paroxetine HCl) 40 Mg Tablet 40 MG PO HS, #30 TAB (This prescription has been renewed) Trazodone HCl (Trazodone HCl) 50 Mg Tablet 50 MG PO HS PRN for SLEEP, #30 TAB (This prescription has been renewed) Discontinued Medications: Metoprolol Succinate (Metoprolol Succinate) 50 Mg Tab.er.24h 50 MG PO DAILY, TAB LAST FILLED 01-26-2021 #90/90 DAY SUPPLY Maya Hoskins Jul 21, 2021 11:46 MAYA HOSKINS DO Jul 21, 2021 11:47
--- NOTE | 2021-07-21 11:47 | Discharge Summary ---
Discharge Summary Hospital Course Problems/Dx: (1) Acute on chronic systolic heart failure (2) Primary hypertension (3) Cardiomyopathy (4) Coronary artery disease without angina pectoris (5) Mixed hyperlipidemia Hospital Course Date of Admission: Jul 12, 2021 at 07:10 Admission Diagnosis : Family Physician/Provider: Latricia/Alo,[facility] Date of Discharge: 07/21/21 Discharge Diagnosis: [ ] Hospital Course: [ ] Labs and Pending Lab Test: Laboratory Tests 07/21/21 05:30: White Blood Count 5.4, Red Blood Count 2.89L, Hemoglobin 8.8L, Hematocrit 28L, Mean Corpuscular Volume 98, Mean Corpuscular Hemoglobin 30, Mean Corpuscular Hemoglobin Concent 31L, Red Cell Distribution Width 16.3H, Platelet Count 227, Mean Platelet Volume 10.5, Immature Granulocyte % (Auto) 1, Neutrophils (%) (Auto) 65, Lymphocytes (%) (Auto) 21, Monocytes (%) (Auto) 11, Eosinophils (%) (Auto) 2, Basophils (%) (Auto) 1, Neutrophils # (Auto) 3.5, Lymphocytes # (Auto) 1.1, Monocytes # (Auto) 0.6, Eosinophils # (Auto) 0.1, Basophils # (Auto) 0.0, Immature Granulocyte # (Auto) 0.1 07/21/21 06:00: Sodium Level 137, Potassium Level 4.0, Chloride Level 100, Carbon Dioxide Level 28, Anion Gap 9, Blood Urea Nitrogen 20H, Creatinine 0.81, Estimat Glomerular Filtration Rate 68, BUN/Creatinine Ratio 25, Glucose Level 108H, Calcium Level 8.6, Corrected Calcium 9.5, Total Bilirubin 0.9, Aspartate Amino Transf (AST/SGOT) 30, Alanine Aminotransferase (ALT/SGPT) 13, Alkaline Phosphatase 78, Total Protein 7.2, Albumin 2.9L Microbiology 07/15/21 Blood Culture - Final, Complete No growth 07/12/21 MRSA Screen - Final, Complete MRSA not isolated 07/12/21 Urine Culture - Final, Complete Escherichia coli Home Meds Active Stool Softener-Laxative Tablet (Sennosides/Docusate Sodium) 1 Each Tablet 2 Ea PO BID HYDROcodone/APAP 10/325 TABLET (Acetaminophen/Hydrocodone Bitart) 1 Ea Tab 1 Ea PO Q4H PRN Amlodipine Besylate 5 Mg Tablet 5 Mg PO DAILY Metoprolol Succinate 100 Mg Tab.er.24h 100 Mg PO DAILY Enoxaparin Sodium 40 Mg/0.4 Ml Syringe 40 Mg SC Q24H Furosemide 20 Mg Tablet 20 Mg PO DAILY Paroxetine HCl 40 Mg Tablet 40 Mg PO HS Trazodone HCl 50 Mg Tablet 50 Mg PO HS PRN Atorvastatin Calcium 20 Mg Tablet 20 Mg PO DAILY Aspirin EC (Aspirin) 81 Mg Tablet.dr 81 Mg PO DAILY Montelukast Sodium 10 Mg Tablet 10 Mg PO HS Lisinopril 40 Mg Tablet 40 Mg PO DAILY Metoclopramide HCl 10 Mg Tablet 10 Mg PO BID Cetirizine HCl 10 Mg Tablet 10 Mg PO DAILY Reported Metoprolol Succinate 50 Mg Tab.er.24h 50 Mg PO DAILY LAST FILLED 01-26-2021 #90/90 DAY SUPPLY Discharge Instructions Discharge Diet: No Restrictions Discharge Physical Examination Vital Signs Vital Signs Date Time Temp Pulse Resp B/P (MAP) Pulse Ox O2 Delivery O2 Flow Rate FiO2 07/21/21 11:17 36.1 61 20 162/75 (104) 96 Nasal Cannula 1.00 Allergies: Coded Allergies: cortisone (Verified Allergy, Unknown, 01/30/07) diphenhydramine (Verified Allergy, Unknown, 01/30/07) penicillin G (Verified Allergy, Unknown, 07/12/21) The patient is unaware that she has a penicillin allergy. She does not remember ever taking it and if she did what the reaction was. It has not been recently. Discharge Summary Date of Admission Jul 12, 2021 at 07:10 Date of Discharge Discharge Date: Jul 21, 2021 Admission Diagnosis Assessment: Left femoral neck fracture Frail status Cardiomyopathy Plan: Surgical repair since benefits outweigh medical risk Supportive care Cardiology consult Echo Discharge Diagnosis Awaiting insurance approval (1) Acute on chronic systolic heart failure Assessment & Plan: Her chest x-ray from 07/16 was improved. Clinically, she se ems to be overall improved from a cardiac standpoint. She is probably euvolemic at this point in time. Continue lisinopril and metoprolol succinate as tolerated by blood pressure. These have been intermittently held due to low blood pressure. I resumed her oral furosemide which she was taking at home. (2) Primary hypertension Assessment & Plan: Blood pressures have been intermittently elevated. I increased her dose of metoprolol on 07/19. This may take a week or 2 to see its full effect. She is on the maximum dose of lisinopril. I would avoid aggressively increasing the antihypertensive medication or she may develop hypotension. (3) Cardiomyopathy Assessment & Plan: She had mild left ventricular systolic dysfunction on her most recent echocardiogram. She is on metoprolol succinate and lisinopril which should be continued as long as her blood pressure tolerates. (4) Coronary artery disease without angina pectoris Assessment & Plan: She has a history of coronary artery disease but is not having any angina at the present time. Continue aspirin, beta-amy, and statin medication. (5) Mixed hyperlipidemia Assessment & Plan: Continue atorvastatin. Clinical Quality Measures DVT/VTE Risk/Contraindication: Contraindications-Pharm: Pt at low risk Other: or MAE LENTZ DO Jul 21, 2021 11:47
--- NOTE | 2021-07-21 11:54 | Occupational Ther Daily Note ---
OT Current Status-Daily Note Subjective Pt alert, lying in bed. Pt agrees to therapy. No c/o pain. Mental Status/Objective Patient Orientation: Person, Place, Time, Situation ADL-Treatment Supine to EOB independent. Using FWW with CGA to ambulated to bathroom. SBA for toilet transfers. CGA for pt to cleanse self after urination. Pt declined going to sink for oral care or washing hands. Ambulated back to recliner using FWW. Assist to set up meal then pt able to complete eating by self. After session, pt sitting in recliner with call light/phone in reach. All needs met in room. Therapy Code Descriptions/Definitions Functional Orient Measure: 0=Not Assessed/NA 4=Minimal Assistance 1=Total Assistance 5=Supervision or Setup 2=Maximal Assistance 6=Modified Orient 3=Moderate Assistance 7=Complete IndependenceSCALE: Activities may be completed with or without assistive devices. 9-Erftrgdhkh-husannt completes the activity by him/herself with no assistance from a helper. 5-Set-up or Clean-up Assistance-helper sets up or cleans up; patient completes activity. [place] assists only prior to or following the activity. 4-Supervision or Touching Assistance-helper provides verbal cues and/or touching/steadying and/or contact guard assistance as patient completes activity. Assistance may be provided throughout the activity or intermittently. 3-Partial/Moderate Assistance-helper does LESS THAN HALF the effort. [place] lifts, holds or supports trunk or limbs, but provides less than half the effort. 2-Substantial/Maximal Assistance-helper does MORE THAN HALF the effort. [place] lifts or holds trunk or limbs and provides more than half the effort. 3-Kemesyltt-mxnfsc does ALL the effort. Patient does none of the effort to complete the activity. Or, the assistance of 2 or more helpers is required for the patient to complete the activity. If activity was not attempted, code reason: 7-Patient Refused. 9-Not Applicable-not attempted and the patient did not perform the activity before the current illness, exacerbation or injury. 10-Not Attempted due to Environmental Limitations-(lack of equipment, weather restraints, etc.). 88-Not Attempted due to Medical Conditions or Safety Concerns. Eating (QC): 5 Toileting Hygiene (QC): 4 Toilet Transfer (QC): 4 OT Senior Living Goals Mds Manager Goals Time Frame: Jul 27, 2021 Oral Hygiene (QC): 5 Toileting Hygiene (QC): 4 Shower/Bathe Self (QC): 4 Upper Body Dressing (QC): 5 Lower Body Dressing (QC): 4 On/Off Footwear (QC): 4 1=Demonstrate adherence to instructed precautions during ADL tasks. 2=Patient will verbalize/demonstrate understanding of assistive devices/modifications for ADL. 3=Patient will improve strength/tolerance for activity to enable patient to perform ADL's. OT Education/Plan Problem List/Assessment Assessment: Decreased Activ Tolerance, Impaired Self-Care Skills Discharge Recommendations Plan/Recommendations: Continue POC Treatment Plan/Plan of Care Patient would benefit from OT for education, treatment and training to promote independence in ADL's, mobility, safety and/or upper extremity function for ADL's. Plan of Care: ADL Retraining, Functional Mobility, UE Funct Exercise/Act, W/C Management Training Treatment Duration: Jul 27, 2021 Frequency: 3 times per week Estimated Hrs Per Day: .25 hour per day Rehab Potential: Fair Time/GCodes Start Time: 11:33 Stop Time: 11:47 Total Time Billed (hr/min): 14 Billed Treatment Time 1 visit-ADL 1 (14 min) NATHAN BURT Jul 21, 2021 11:53
--- NOTE | 2021-07-21 12:22 | Progress Note - Ortho ---
Progress Note Subjective Date of Exam 07/21/21 Chief Complaint POD#9 Cemented bipolar hemiarthroplasty for a displaced subcapital fracture left hip HPI/Events since last exam Mrs. Su is 9 days postop cemented bipolar hemiarthroplasty left hip for displaced subcapital fracture. When I saw her she was sitting in the chair. She had no complaints. No hip pain. Review of Systems Reviewed and no additions or change Allergies: Coded Allergies: cortisone (Verified Allergy, Unknown, 01/30/07) diphenhydramine (Verified Allergy, Unknown, 01/30/07) penicillin G (Verified Allergy, Unknown, 07/12/21) The patient is unaware that she has a penicillin allergy. She does not remember ever taking it and if she did what the reaction was. It has not been recently. Home Meds Active Scripts Sennosides/Docusate Sodium (Stool Softener-Laxative Tablet) 1 Each Tablet, 2 EA PO BID, #60 TAB Prov:MAE LENTZ DO 07/21/21 Hydrocodone Bit/Acetaminophen (HYDROcodone/APAP 10/325 TABLET) 1 Ea Tab, 1 EA PO Q4H PRN for PAIN-MODERATE (5-7), #20 TAB Prov:MAE LENTZ DO 07/21/21 Amlodipine Besylate (Amlodipine Besylate) 5 Mg Tablet, 5 MG PO DAILY, #30 TAB Prov:MAE LENTZ DO 07/21/21 Metoprolol Succinate (Metoprolol Succinate) 100 Mg Tab.er.24h, 100 MG PO DAILY, #30 TAB Prov:MAE LENTZ DO 07/21/21 Enoxaparin Sodium (Enoxaparin Sodium) 40 Mg/0.4 Ml Syringe, 40 MG SC Q24H, #14 SYRINGE Prov:MAE LENTZ DO 07/21/21 Furosemide (Furosemide) 20 Mg Tablet, 20 MG PO DAILY, #30 TAB Prov:MAE LENTZ DO 07/21/21 Paroxetine HCl (Paroxetine HCl) 40 Mg Tablet, 40 MG PO HS, #30 TAB Prov:MAE LENTZ DO 07/21/21 Trazodone HCl (Trazodone HCl) 50 Mg Tablet, 50 MG PO HS PRN for SLEEP, #30 TAB Prov:MAE LENTZ DO 07/21/21 Atorvastatin Calcium (Atorvastatin Calcium) 20 Mg Tablet, 20 MG PO DAILY, #30 TAB Prov:MAE LENTZ DO 07/21/21 Aspirin (Aspirin EC) 81 Mg Tablet.dr, 81 MG PO DAILY, #30 TAB Prov:MAE LENTZ DO 07/21/21 Montelukast Sodium (Montelukast Sodium) 10 Mg Tablet, 10 MG PO HS, #30 TAB Prov:MAE LENTZ DO 07/21/21 Lisinopril (Lisinopril) 40 Mg Tablet, 40 MG PO DAILY, #30 TAB Prov:MAE LENTZ DO 07/21/21 Metoclopramide HCl (Metoclopramide HCl) 10 Mg Tablet, 10 MG PO BID, #60 TAB Prov:MAE LENTZ DO 07/21/21 Cetirizine HCl (Cetirizine HCl) 10 Mg Tablet, 10 MG PO DAILY, #30 TAB Prov:MAE LENTZ DO 07/21/21 Reported Medications Metoprolol Succinate (Metoprolol Succinate) 50 Mg Tab.er.24h, 50 MG PO DAILY, TAB LAST FILLED 01-26-2021 #90/90 DAY SUPPLY 09/27/16 Objective Exam Constitutional: [] HEENT: [] Neck: [] Cardiovascular: [] Respiratory: [] Gastrointestinal: [] Genitourinary: [] Skin: [] Back/Spine: [] Extremities: [No dressing on the wound the wound looks good without redness or drainage. Good position of the leg compared to the right. No calf tenderness and negative Homans. Good strength on dorsiflexion plantarflexion of the foot and ankle without pain. Normal sensation to the foot and toes with good cap refill and equal pulses] Neurologic: [] Psychiatric: [] Hematologic/lymphatic/immunologic: [] Vital Signs Vital Signs Date Time Temp Pulse Resp B/P (MAP) Pulse Ox O2 Delivery O2 Flow Rate FiO2 07/21/21 11:17 36.1 61 20 162/75 (104) 96 Nasal Cannula 1.00 07/21/21 07:29 36.2 61 18 170/81 (110) 96 Nasal Cannula 1.00 07/21/21 04:23 36.4 62 18 201/81 (121) 97 Nasal Cannula 1.00 07/21/21 00:00 36.0 75 18 156/85 (108) 95 Nasal Cannula 1.00 07/20/21 20:45 Nasal Cannula 1.00 07/20/21 16:00 35.8 66 18 163/71 (101) 93 Nasal Cannula 1.00 07/20/21 15:14 96 Nasal Cannula 1.00 07/20/21 12:26 35.8 68 20 167/73 (104) 95 1.00 I & O 07/21/21 07:00 Intake Total 1300 ml Output Total 1150 ml Balance 150 ml Lab Results Laboratory Tests 07/21/21 05:30: White Blood Count 5.4, Red Blood Count 2.89L, Hemoglobin 8.8L, Hematocrit 28L, Mean Corpuscular Volume 98, Mean Corpuscular Hemoglobin 30, Mean Corpuscular Hemoglobin Concent 31L, Red Cell Distribution Width 16.3H, Platelet Count 227, Mean Platelet Volume 10.5, Immature Granulocyte % (Auto) 1, Neutrophils (%) (Auto) 65, Lymphocytes (%) (Auto) 21, Monocytes (%) (Auto) 11, Eosinophils (%) (Auto) 2, Basophils (%) (Auto) 1, Neutrophils # (Auto) 3.5, Lymphocytes # (Auto) 1.1, Monocytes # (Auto) 0.6, Eosinophils # (Auto) 0.1, Basophils # (Auto) 0.0, Immature Granulocyte # (Auto) 0.1 07/21/21 06:00: Sodium Level 137, Potassium Level 4.0, Chloride Level 100, Carbon Dioxide Level 28, Anion Gap 9, Blood Urea Nitrogen 20H, Creatinine 0.81, Estimat Glomerular Filtration Rate 68, BUN/Creatinine Ratio 25, Glucose Level 108H, Calcium Level 8.6, Corrected Calcium 9.5, Total Bilirubin 0.9, Aspartate Amino Transf (AST/SGOT) 30, Alanine Aminotransferase (ALT/SGPT) 13, Alkaline Phosphatase 78, Total Protein 7.2, Albumin 2.9L Microbiology 07/15/21 Blood Culture - Final, Complete No growth 07/12/21 MRSA Screen - Final, Complete MRSA not isolated 07/12/21 Urine Culture - Final, Complete Escherichia coli Assessment and Plan Assessment Doing well 9 days postop Problem List Unchanged Plan Continue present treatment Final Diagonsis Displaced subcapital fracture left hip status post cemented bipolar hemiarthroplasty Level of the visit: Level 3 Clinical Quality Measures DVT/VTE Risk/Contraindication: Contraindications-Pharm: Pt at low risk Other: or MEIR CUMMINGS MD Jul 21, 2021 12:22
--- NOTE | 2021-07-21 15:51 | Progress Note ---
DARRYN IBRAHIM 07/21/21 1551: Progress Note Patient is an 80 year old female who presented to via [place] emergency department ER on 07/12 after a fall at home. Patient was found to have a displaced left femoral neck fracture. Patient had a history of low ejection fraction, so was seen by cardiology to determine if able to undergo surgery. Patient's echo had an EF of 40-45% and patient was cleared to undergo surgery. Surgery was done by Dr. Ledesma, orthopedic surgery, on 07/12. Surgery was uncomplicated. On 07/13, patient was doing well but had a hemoglobin of 7.9, which was trending downwards since her surgery. On 07/14, patient had a hemoglobin of 6.9 and was given two units of RBCs. Patient also had a chest x-ray that showed pulmonary congestion, so cardiology recommended to discontinue IV fluid and start IV furosemide. On 07/15 at 1530 patient had an abrupt decrease in oxygenation status, so a sepsis workup was initiated. Early pneumonia was found. Patient was started on cefepime. On 07/16, patient's oxygenation status was markedly improved and her pneumonia was found to be responding to the cefepime. On 07/17, patient's clinical status had improved enough to begin the placement process to [facility]. Her application was submitted to insurance. On 07/18- 07/20, Patient's clinical status remained stable and we awaited approval from insurance and [facility]. On 07/21, Patient was approved for transfer to [facility]. MAYA LENTZ DO 07/22/21 0601: Supervisory-Addendum Brief Verification & Attestation Participated in pt care: history, MDM, physical Personally performed: exam, history, MDM, supervision of care Care discussed with: Medical Student Procedures: n/a Results interpretation: Verified all documentation Verification and Attestation of Medical Student E/M Service A medical student performed and documented this service in my presence. I reviewed and verified all information documented by the medical student and made modifications to such information, when appropriate. I personally performed the physical exam and medical decision making. Maya Lentz Jul 22, 2021,06:01 DARRYN IBRAHIM Jul 21, 2021 15:51 MAYA LENTZ DO Jul 22, 2021 06:01
--- NOTE | 2021-07-21 17:16 | Progress Note - Hospitalist ---
Subjective HPI/CC On Admission Date Seen by Provider: Jul 21, 2021 Time Seen by Provider: 12:00 CC: Left femoral neck fracture HPI: This is a [facility] patient who lives with her son and uvblkyhv-cz-dqs who fell on the floor and suffered a left femoral neck fracture. Pt is very frail but appears to meet criteria for repair. Benefits outweigh the medical risk in my opinion. I have checked meds and labs and I have consulted cardiology and echocardiogram will be obtained to evaluate the systolic dysfunction that was seen on prior exam. Subjective/Events-last exam Delay in discharge Patient does not want to go to assisted Social work involved Review of Systems General: Fatigue, Malaise Musculoskeletal: leg pain Objective Exam Vital Signs Vital Signs Date Time Temp Pulse Resp B/P (MAP) Pulse Ox O2 Delivery O2 Flow Rate FiO2 07/22/21 04:45 36.0 64 20 185/75 (111) 96 Nasal Cannula 0.50 Capillary Refill : Less Than 3 SecondsLess Than 3 Seconds General Appearance: No Apparent Distress, WD/WN, Chronically ill Respiratory: Lungs Clear, Normal Breath Sounds Cardiovascular: Regular Rate, Rhythm Results/Procedures Lab Patient resulted labs reviewed. Assessment/Plan Assessment and Plan Assess & Plan/Chief Complaint Assessment: Hip fracture Status post early pneumonia Advanced age Cognitive decline Plan: Await placement Clinical Quality Measures DVT/VTE Risk/Contraindication: Contraindications-Pharm: Pt at low risk Other: or MAE LENTZ DO Jul 21, 2021 17:16
[2021-07-21] MEDS: MONTELUKAST 10 MG (SINGULAIR) TAB PO SCH (21:07)
[2021-07-21] MEDS: PARoxetine 20 MG (PAXIL) TAB PO SCH (21:08)
[2021-07-22 04:45] VITALS: BP 185/75
[2021-07-22] MEDS: CEFEPIME INJECTION 1,000 MG in NS (IVPB) 50 ML IV SCH (05:10)
[2021-07-22] MEDS: cloNIDine 0.1 MG (CATAPRES) TAB PO PRN (05:10)
[2021-07-22] MEDS: ENOXAPARIN 40 MG/0.4 ML (LOVENOX) SYR SC SCH (05:10)
[2021-07-22 06:20] LABS: BASOPHILS % (AUTO) 1 % (0-10); EOSINOPHILS # (AUTO) 0.1 10^3/uL (0.0-0.3); EOSINOPHILS % (AUTO) 2 % (0-10); HEMATOCRIT 27 % (35-52); HEMOGLOBIN 8.3 g/dL (11.5-16.0); LYMPHOCYTES # (AUTO) 1.1 10^3/uL (1.0-4.0); LYMPHOCYTES % (AUTO) 23 % (12-44); MEAN CORPUSCULAR HEMOGLOBIN 31 pg (25-34); MEAN CORPUSCULAR HGB CONC 31 g/dL (32-36); MEAN CORPUSCULAR VOLUME 99 fL (80-99); MEAN PLATELET VOLUME 10.3 fL (9.0-12.2); MONOCYTES # (AUTO) 0.4 10^3/uL (0.0-1.0); MONOCYTES % (AUTO) 9 % (0-12); NEUTROPHILS # (AUTO) 2.9 10^3/uL (1.8-7.8); NEUTROPHILS % (AUTO) 64 % (42-75); PLATELET COUNT 203 10^3/uL (130-400); WHITE BLOOD COUNT 4.6 10^3/uL (4.3-11.0)
[2021-07-22 06:38] LABS: ALBUMIN 2.8 GM/DL (3.2-4.5); POTASSIUM 4.1 MMOL/L (3.6-5.0)
[2021-07-22 06:40] LABS: CALCIUM 8.4 MG/DL (8.5-10.1)
[2021-07-22 06:41] LABS: TOTAL PROTEIN 6.9 GM/DL (6.4-8.2)
[2021-07-22 06:43] LABS: BILIRUBIN,TOTAL 0.8 MG/DL (0.1-1.0)
[2021-07-22 06:44] LABS: CREATININE SERUM 0.83 MG/DL (0.60-1.30)
[2021-07-22] MEDS: RT-ALBUTEROL SULF 2.5 MG/3 ML PRE-MIX VIAL INH SCH ×2 (07:47→21:21)
[2021-07-22 08:01] VITALS: BP 112/63
--- NOTE | 2021-07-22 09:15 | Physical Therapy Daily Note ---
PT Daily Note-Current Subjective Patient agrees to PT. Transfers SCALE: Activities may be completed with or without assistive devices. 4-Bqhppvoeth-amkqnkh completes the activity by him/herself with no assistance from a helper. 5-Set-up or Clean-up Assistance-helper sets up or cleans up; patient completes activity. [place] assists only prior to or following the activity. 4-Supervision or Touching Assistance-helper provides verbal cues and/or touching/steadying and/or contact guard assistance as patient completes activity. Assistance may be provided throughout the activity or intermittently. 3-Partial/Moderate Assistance-helper does LESS THAN HALF the effort. [place] lifts, holds or supports trunk or limbs, but provides less than half the effort. 2-Substantial/Maximal Assistance-helper does MORE THAN HALF the effort. [place] lifts or holds trunk or limbs and provides more than half the effort. 6-Blzbevehf-rzzlfl does ALL the effort. Patient does none of the effort to complete the activity. Or, the assistance of 2 or more helpers is required for the patient to complete the activity. If activity was not attempted, code reason: 7-Patient Refused. 9-Not Applicable-not attempted and the patient did not perform the activity before the current illness, exacerbation or injury. 10-Not Attempted due to Environmental Limitations-(lack of equipment, weather restraints, etc.). 88-Not Attempted due to Medical Conditions or Safety Concerns. Sit to Stand (QC): 4 Weight Bearing Right Lower Extremity: Right Full Weight Bearing Left Lower Extremity: Left Weight Bearing/Tolerated Gait Training Distance: 200' Walk 10 feet (QC): 4 Walk 50 ft with 2 Turns(QC): 4 Walk 150 ft (QC): 4 Gait Assistive Device: FWW step to gait sequence Exercises Seated Therapy Exercises: Ankle pumps, Long arc quads Seated Reps: 12 Assessment Patient remains up in recliner with needs met. Increase activity as tolerated by patient. PT Drafter Castings Goals Drafter Castings Goals PT Drafter Castings Goals Time Frame: Jul 20, 2021 Roll Left & Right (QC): 6 Sit to Lying (QC): 4 Lying-Sitting on Side/Bed(QC): 4 Sit to Stand (QC): 4 Chair/Tbw-ie-Nwoet Xfer(QC): 4 Walk 10 feet (QC): 4 Walk 50ft with 2 Turns (QC): 4 PT Plan Treatment/Plan Treatment Plan: Continue Plan of Care Treatment Plan: Bed Mobility, Education, Functional Activity Josh, Functional Strength, Gait, Safety, Therapeutic Exercise, Transfers Treatment Duration: Jul 20, 2021 Frequency: 11 times per week Estimated Hrs Per Day: .25 hour per day Patient and/or Family Agrees t: Yes Time/GCodes Time In: 812 Time Out: 824 Total Billed Treatment Time: 12 Total Billed Treatment 1 visit GT 12 min TEGAN SAUL PT Jul 22, 2021 09:15
[2021-07-22] MEDS: FUROSEMIDE 20 MG (LASIX) TAB PO SCH (09:41)
[2021-07-22] MEDS: ASPIRIN E.C. 81 MG (ECOTRIN) TAB PO SCH (09:41)
[2021-07-22] MEDS: lisINopril 20 MG (PRINIVIL) TABLET PO SCH (09:41)
[2021-07-22] MEDS: amLODIPine 5 MG (NORVASC) TAB PO SCH (09:41)
[2021-07-22] MEDS: METOCLOPRAMIDE 10 MG (REGLAN) TAB PO SCH ×2 (09:41→19:51)
[2021-07-22] MEDS: LORATADINE (CLARITIN) 10 MG TAB PO SCH (09:41)
[2021-07-22] MEDS: meTOprolol SUCCINATE 100 MG (TOPROL XL) TAB PO SCH (09:41)
[2021-07-22] MEDS: SENNA W/DOCUSATE (SENOKOT S) TABLET PO SCH ×2 (09:41→19:51)
[2021-07-22] MEDS: polyethylene glycoL POWDER 17 GM (MIRALAX) PACK PO SCH ×2 (09:42→19:53)
[2021-07-22 09:48] VITALS: BP 152/74
--- NOTE | 2021-07-22 10:47 | Occupational Ther Daily Note ---
OT Current Status-Daily Note Subjective Pt sitting in recliner. Pt agrees to therapy. No c/o pain. Mental Status/Objective Patient Orientation: Person, Confused Attachments: IV ADL-Treatment Pt agrees to complete oral care standing at bathroom sink. [facility] stated "I am going to crap", pt directed to toilet. Pt able to manipulate hospital gown out of the way. Pt attempted to cleanse self after BM though not thoroughly, assist to thoroughly cleanse pt. Pt then stood at sink and wash hands then declined cleansing mouth and wanted to sit back in recliner. Pt then demonstrated ability to doff/don R sock. Pt unable to remember education on using sock aide and stated that she couldn't do it. After therapy, pt sitting in recliner with call light/phone in reach. All needs met in room. Therapy Code Descriptions/Definitions Functional [place] Measure: 0=Not Assessed/NA 4=Minimal Assistance 1=Total Assistance 5=Supervision or Setup 2=Maximal Assistance 6=Modified [place] 3=Moderate Assistance 7=Complete IndependenceSCALE: Activities may be completed with or without assistive devices. 9-Rllhalbyvq-xvoqzvj completes the activity by him/herself with no assistance from a helper. 5-Set-up or Clean-up Assistance-helper sets up or cleans up; patient completes activity. [place] assists only prior to or following the activity. 4-Supervision or Touching Assistance-helper provides verbal cues and/or touching/steadying and/or contact guard assistance as patient completes activity. Assistance may be provided throughout the activity or intermittently. 3-Partial/Moderate Assistance-helper does LESS THAN HALF the effort. [place] lifts, holds or supports trunk or limbs, but provides less than half the effort. 2-Substantial/Maximal Assistance-helper does MORE THAN HALF the effort. [place] lifts or holds trunk or limbs and provides more than half the effort. 4-Xevcbsnqf-jomtkh does ALL the effort. Patient does none of the effort to complete the activity. Or, the assistance of 2 or more helpers is required for the patient to complete the activity. If activity was not attempted, code reason: 7-Patient Refused. 9-Not Applicable-not attempted and the patient did not perform the activity before the current illness, exacerbation or injury. 10-Not Attempted due to Environmental Limitations-(lack of equipment, weather restraints, etc.). 88-Not Attempted due to Medical Conditions or Safety Concerns. Oral Hygiene (QC): 7 On/Off Footwear: 3 Toileting Hygiene (QC): 3 Toilet Transfer (QC): 4 OT Bias Cutter Goals Group Home Goals Time Frame: Jul 27, 2021 Oral Hygiene (QC): 5 Toileting Hygiene (QC): 4 Shower/Bathe Self (QC): 4 Upper Body Dressing (QC): 5 Lower Body Dressing (QC): 4 On/Off Footwear (QC): 4 1=Demonstrate adherence to instructed precautions during ADL tasks. 2=Patient will verbalize/demonstrate understanding of assistive devices/modifications for ADL. 3=Patient will improve strength/tolerance for activity to enable patient to perform ADL's. OT Education/Plan Problem List/Assessment Assessment: Decreased Activ Tolerance, Decreased Safety Aware, Impaired Cognition, Impaired Self-Care Skills Discharge Recommendations Plan/Recommendations: Continue POC Treatment Plan/Plan of Care Patient would benefit from OT for education, treatment and training to promote independence in ADL's, mobility, safety and/or upper extremity function for ADL's. Plan of Care: ADL Retraining, Functional Mobility, UE Funct Exercise/Act, W/C Management Training Treatment Duration: Jul 27, 2021 Frequency: 3 times per week Estimated Hrs Per Day: .25 hour per day Rehab Potential: Fair Time/GCodes Start Time: 10:25 Stop Time: 10:38 Total Time Billed (hr/min): 13 Billed Treatment Time 1 visit-ADL 1 (13 min) NATHAN BURT Jul 22, 2021 10:47
--- NOTE | 2021-07-22 11:27 | Physical Therapy Daily Note ---
PT Daily Note-Current Subjective Patient agrees to PT. Transfers SCALE: Activities may be completed with or without assistive devices. 1-Tgwudnqdir-rmwigmv completes the activity by him/herself with no assistance from a helper. 5-Set-up or Clean-up Assistance-helper sets up or cleans up; patient completes activity. [place] assists only prior to or following the activity. 4-Supervision or Touching Assistance-helper provides verbal cues and/or touching/steadying and/or contact guard assistance as patient completes activity. Assistance may be provided throughout the activity or intermittently. 3-Partial/Moderate Assistance-helper does LESS THAN HALF the effort. [place] lifts, holds or supports trunk or limbs, but provides less than half the effort. 2-Substantial/Maximal Assistance-helper does MORE THAN HALF the effort. [place] lifts or holds trunk or limbs and provides more than half the effort. 0-Wyhqlssqg-wtwilx does ALL the effort. Patient does none of the effort to complete the activity. Or, the assistance of 2 or more helpers is required for the patient to complete the activity. If activity was not attempted, code reason: 7-Patient Refused. 9-Not Applicable-not attempted and the patient did not perform the activity before the current illness, exacerbation or injury. 10-Not Attempted due to Environmental Limitations-(lack of equipment, weather restraints, etc.). 88-Not Attempted due to Medical Conditions or Safety Concerns. Weight Bearing Right Lower Extremity: Right Full Weight Bearing Left Lower Extremity: Left Weight Bearing/Tolerated Exercises Seated Therapy Exercises: Ankle pumps, Long arc quads, Hip flexion, Glut set Seated Reps: 15 (x 2 sets) Assessment Patient tolerated exercises and had just completed OT session. Patient remains up in recliner with needs met. PT Longterm Goals Traffic Enumerator Goals PT Longterm Goals Time Frame: Jul 20, 2021 Roll Left & Right (QC): 6 Sit to Lying (QC): 4 Lying-Sitting on Side/Bed(QC): 4 Sit to Stand (QC): 4 Chair/Usi-wc-Ngfxd Xfer(QC): 4 Walk 10 feet (QC): 4 Walk 50ft with 2 Turns (QC): 4 PT Plan Treatment/Plan Treatment Plan: Continue Plan of Care Treatment Plan: Bed Mobility, Education, Functional Activity Josh, Functional Strength, Gait, Safety, Therapeutic Exercise, Transfers Treatment Duration: Jul 29, 2021 Frequency: 11 times per week Estimated Hrs Per Day: .25 hour per day Patient and/or Family Agrees t: Yes Time/GCodes Time In: 1055 Time Out: 1105 Total Billed Treatment Time: 10 Total Billed Treatment 1 visit EX 10 min TEGAN SAUL PT Jul 22, 2021 11:27
[2021-07-22 12:00] VITALS: BP 150/82
--- NOTE | 2021-07-22 12:22 | Progress Note - Hospitalist ---
DARRYN IBRAHIM 07/22/21 1222: Subjective HPI/CC On Admission Date Seen by Provider: Jul 22, 2021 Time Seen by Provider: 08:00 CC: Left femoral neck fracture HPI: This is a [facility] patient who lives with her son and yhdqteqa-ol-vix who fell on the floor and suffered a left femoral neck fracture. Pt is very frail but appears to meet criteria for repair. Benefits outweigh the medical risk in my opinion. I have checked meds and labs and I have consulted cardiology and echocardiogram will be obtained to evaluate the systolic dysfunction that was seen on prior exam. Subjective/Events-last exam Patient is feeling fine today,with no complaints. States pain is well controlled. Walked today. Was supposed to be discharged yesterday, this has been delayed. Review of Systems General: No Chills Cardiovascular: No: Chest Pain, Palpitations Gastrointestinal: No: Nausea, Vomiting Objective Exam Vital Signs Vital Signs Date Time Temp Pulse Resp B/P (MAP) Pulse Ox O2 Delivery O2 Flow Rate FiO2 07/22/21 09:48 69 152/74 (100) 07/22/21 08:01 36.4 20 93 Room Air 07/22/21 04:45 0.50 Capillary Refill : Less Than 3 SecondsLess Than 3 Seconds General Appearance: No Apparent Distress, WD/WN Respiratory: Chest Non Tender, Lungs Clear, Normal Breath Sounds, No Accessory Muscle Use, No Respiratory Distress Cardiovascular: Regular Rate, Rhythm, Normal Peripheral Pulses Rectal: Deferred Extremity: Non Tender, No Calf Tenderness, No Pedal Edema Neurologic/Psychiatric: Alert, Oriented x3, Normal Mood/Affect Results/Procedures Lab Laboratory Tests 07/22/21 06:13 Patient resulted labs reviewed. Assessment/Plan Assessment and Plan Assess & Plan/Chief Complaint Assessment: L hip Fracture status post uncomplicated repair by Dr. Ledesma UTI on Rocephin Systolic congestive heart failure ejection fraction 40% Hypertension Decreased urinary output Acute kidney insufficiency Acute blood loss anemia requiring 2 units of transfusion Plan: Pain control Increase IV fluids Supportive care 07/14/2021: Transfuse PT and OT 07/15/2021: Septic work-up Check chest x-ray again today Lasix 40 mg x 1 07/16/2021: Antibiotics Diuresis Oxygen 07/17/2021: Supportive care Bowel regimen 07/18/2021: Continue Abx Continue Diuresis Continue bowel regimen Supportive care 07/19/2021: Continue medical management Rehab facility once approved 07/20/2021: Continue medical management PT/OT IS Rehab facility once insurance approves 07/22/2021: Continue medical management PT/OT IS Clinical Quality Measures DVT/VTE Risk/Contraindication: Contraindications-Pharm: Pt at low risk Other: or MAYA LENTZ DO 07/22/21 1606: Subjective Subjective/Events-last exam Patient has no issues Does not want to the [facility]dc Checked meds and labs Review of Systems Musculoskeletal: leg pain Objective Exam General Appearance: No Apparent Distress, WD/WN, Chronically ill Respiratory: Lungs Clear, Normal Breath Sounds Cardiovascular: Regular Rate, Rhythm Neurologic/Psychiatric: Alert, Oriented x3, Depressed Affect Assessment/Plan Assessment and Plan Assess & Plan/Chief Complaint Supportive care Monitor labs Supervisory-Addendum Brief Verification & Attestation Participated in pt care: history, MDM, physical Personally performed: exam, history, MDM, supervision of care Care discussed with: Medical Student Procedures: n/a Results interpretation: Verified all documentation Verification and Attestation of Medical Student E/M Service A medical student performed and documented this service in my presence. I reviewed and verified all information documented by the medical student and made modifications to such information, when appropriate. I personally performed the physical exam and medical decision making. Maya Lentz, Jul 22, 2021,16:04 DARRYN IBRAHIM Jul 22, 2021 12:22 MAYA LENTZ DO Jul 22, 2021 16:06
--- NOTE | 2021-07-22 12:58 | Cardiology Progress Note ---
Progress Note-Cardiology Events since last exam Date Seen by Provider: Jul 22, 2021 Time Seen by Provider: 12:57 Events since last exam I am following her due to heart failure following hip fracture status post r epair. She remains on the medical floor awaiting an inpatient rehabilitation bed. She has been working with physical therapy. She does get some shortness of breath with physical cavity. She denies chest discomfort, palpitations, syncope, or ankle edema. Certain portions of this document may have been dictated utilizing voice recognition technology. Inherent to this technology, typographical and grammatical errors may exist. As much as I am diligent to identify and correct these mistakes, some errors may remain in the document. Vitals Last set of Vitals Signs Vital Signs 07/22/21 07/22/21 07/22/21 04:45 08:01 09:48 Temp 36.4 Pulse 69 Resp 20 B/P (MAP) 152/74 (100) Pulse Ox 93 O2 Delivery Room Air O2 Flow Rate 0.50 Labs Labs Laboratory Tests 07/22/21 06:13 Exam Vital Signs Vital Signs Date Time Temp Pulse Resp B/P (MAP) Pulse Ox O2 Delivery O2 Flow Rate FiO2 07/22/21 09:48 69 152/74 (100) 07/22/21 08:01 36.4 20 93 Room Air 07/22/21 04:45 0.50 Physical Exam General: Alert. No acute distress. She is obese. Eye: No xanthelasma. HENT: Normocephalic. Neck: Jugular venous pressure does not appear elevated. Respiratory: Lungs are clear to auscultation. Respirations are non-labored. Breath sounds are equal. Symmetrical chest wall expansion. Cardiovascular: Normal rate. Regular rhythm. No murmur. No gallop. No edema. Gastrointestinal: Soft. Normal bowel sounds. Skin: Warm. Dry. Neurologic: Alert and oriented to person, place, time. Cranial nerves 3-11 grossly intact. Psychiatric: Cooperative. Appropriate mood & affect. Labs Laboratory Tests Test 07/22/21 06:13 Range/Units White Blood Count 4.6 4.3-11.0 10^3/uL Red Blood Count 2.70 L 3.80-5.11 10^6/uL Hemoglobin 8.3 L 11.5-16.0 g/dL Hematocrit 27 L 35-52 % Mean Corpuscular Volume 99 80-99 fL Mean Corpuscular Hemoglobin 31 25-34 pg Mean Corpuscular Hemoglobin Concent 31 L 32-36 g/dL Red Cell Distribution Width 16.8 H 10.0-14.5 % Platelet Count 203 130-400 10^3/uL Mean Platelet Volume 10.3 9.0-12.2 fL Immature Granulocyte % (Auto) 1 % Neutrophils (%) (Auto) 64 42-75 % Lymphocytes (%) (Auto) 23 12-44 % Monocytes (%) (Auto) 9 0-12 % Eosinophils (%) (Auto) 2 0-10 % Basophils (%) (Auto) 1 0-10 % Neutrophils # (Auto) 2.9 1.8-7.8 10^3/uL Lymphocytes # (Auto) 1.1 1.0-4.0 10^3/uL Monocytes # (Auto) 0.4 0.0-1.0 10^3/uL Eosinophils # (Auto) 0.1 0.0-0.3 10^3/uL Basophils # (Auto) 0.0 0.0-0.1 10^3/uL Immature Granulocyte # (Auto) 0.1 0.0-0.1 10^3/uL Sodium Level 136 135-145 MMOL/L Potassium Level 4.1 3.6-5.0 MMOL/L Chloride Level 101 98-107 MMOL/L Carbon Dioxide Level 28 21-32 MMOL/L Anion Gap 7 5-14 MMOL/L Blood Urea Nitrogen 22 H 7-18 MG/DL Creatinine 0.83 0.60-1.30 MG/DL Estimat Glomerular Filtration Rate 66 BUN/Creatinine Ratio 27 Glucose Level 109 H 70-105 MG/DL Calcium Level 8.4 L 8.5-10.1 MG/DL Corrected Calcium 9.4 8.5-10.1 MG/DL Total Bilirubin 0.8 0.1-1.0 MG/DL Aspartate Amino Transf (AST/SGOT) 27 5-34 U/L Alanine Aminotransferase (ALT/SGPT) 13 0-55 U/L Alkaline Phosphatase 72 40-136 U/L Total Protein 6.9 6.4-8.2 GM/DL Albumin 2.8 L 3.2-4.5 GM/DL Diagnosis/Problems Diagnosis/Problems (1) Acute on chronic systolic heart failure Assessment & Plan: Her chest x-ray from 07/16 was clear. Clinically, she seems to be overall improved from a cardiac standpoint. She is probably euvolemic at this point in time. Continue lisinopril and metoprolol succinate as tolerated by blood pressure. These have previously been intermittently held due to low blood pressure. I previously resumed her oral furosemide which she was taking at home. From a cardiac standpoint, she is ready to transfer to inpatient rehab whenever a bed is available. Please call if you have other questions or concerns. I previously ordered a follow-up appointment to be scheduled with her regular back tender, Dr. Thomas, following her return home. (2) Primary hypertension Assessment & Plan: Blood pressures have been intermittently elevated. I increased her dose of metoprolol on 07/19. This may take a week or 2 to see its full effect. She is on the maximum dose of lisinopril. She is also on amlodipine. I would avoid aggressively increasing the antihypertensive medication or she may develop hypotension. (3) Cardiomyopathy Assessment & Plan: She had mild left ventricular systolic dysfunction on her most recent echocardiogram. She is on metoprolol succinate and lisinopril which should be continued as long as her blood pressure tolerates. (4) Coronary artery disease without angina pectoris Assessment & Plan: She has a history of coronary artery disease but is not having any angina at the present time. Continue aspirin, beta-amy, and statin medication. (5) Mixed hyperlipidemia Assessment & Plan: Continue atorvastatin. SHARATH JORDAN JR, MD Jul 22, 2021 12:58
[2021-07-22 16:01] VITALS: BP 147/84
[2021-07-22 19:40] VITALS: BP 156/84
[2021-07-22] MEDS: MONTELUKAST 10 MG (SINGULAIR) TAB PO SCH (19:51)
[2021-07-22] MEDS: PARoxetine 20 MG (PAXIL) TAB PO SCH (19:51)
[2021-07-23 00:25] VITALS: BP 170/69
[2021-07-23 03:39] VITALS: BP 190/81
[2021-07-23] MEDS: cloNIDine 0.1 MG (CATAPRES) TAB PO PRN (03:45)
--- NOTE | 2021-07-23 05:53 | Progress Note - Hospitalist ---
Subjective HPI/CC On Admission Date Seen by Provider: Jul 23, 2021 Time Seen by Provider: 10:30 CC: Left femoral neck fracture HPI: This is a [facility] patient who lives with her son and sgzavjkz-ct-ovq who fell on the floor and suffered a left femoral neck fracture. Pt is very frail but appears to meet criteria for repair. Benefits outweigh the medical risk in my opinion. I have checked meds and labs and I have consulted cardiology and echocardiogram will be obtained to evaluate the systolic dysfunction that was seen on prior exam. Subjective/Events-last exam Patient doing well Sleeping in chair Bowels moving Objective Exam Vital Signs Vital Signs Date Time Temp Pulse Resp B/P (MAP) Pulse Ox O2 Delivery O2 Flow Rate FiO2 07/23/21 15:58 35.9 86 22 146/69 (94) 97 Nasal Cannula 2.00 Capillary Refill : Less Than 3 SecondsLess Than 3 Seconds General Appearance: No Apparent Distress, WD/WN, Chronically ill Results/Procedures Lab Patient resulted labs reviewed. Assessment/Plan Assessment and Plan Assess & Plan/Chief Complaint Assessment: Status post hip fracture repair Dementia Hypertension Postop anemia requiring transfusion Status post early pneumonia responded to breathing treatments and antibiotics Plan: Await senior care placement Clinical Quality Measures DVT/VTE Risk/Contraindication: Contraindications-Pharm: Pt at low risk Other: or MAE LENTZ DO Jul 23, 2021 05:53
[2021-07-23] MEDS: ENOXAPARIN 40 MG/0.4 ML (LOVENOX) SYR SC SCH (06:06)
[2021-07-23 07:30] VITALS: BP_SYST 165; BP_DIAS 69; BP_DIAS 89
[2021-07-23] MEDS: RT-ALBUTEROL SULF 2.5 MG/3 ML PRE-MIX VIAL INH SCH ×3 (07:59→20:45)
[2021-07-23] MEDS: ASPIRIN E.C. 81 MG (ECOTRIN) TAB PO SCH (08:09)
[2021-07-23] MEDS: meTOprolol SUCCINATE 100 MG (TOPROL XL) TAB PO SCH (08:09)
[2021-07-23] MEDS: FUROSEMIDE 20 MG (LASIX) TAB PO SCH (08:09)
[2021-07-23] MEDS: LORATADINE (CLARITIN) 10 MG TAB PO SCH (08:09)
[2021-07-23] MEDS: lisINopril 20 MG (PRINIVIL) TABLET PO SCH (08:09)
[2021-07-23] MEDS: amLODIPine 5 MG (NORVASC) TAB PO SCH (08:09)
[2021-07-23] MEDS: METOCLOPRAMIDE 10 MG (REGLAN) TAB PO SCH ×2 (08:09→20:16)
[2021-07-23] MEDS: IRON SUCROSE 200 MG/10 ML (VENOFER) VIAL IV SCH (08:09)
[2021-07-23] MEDS: SENNA W/DOCUSATE (SENOKOT S) TABLET PO SCH ×2 (08:09→20:16)
[2021-07-23] MEDS: polyethylene glycoL POWDER 17 GM (MIRALAX) PACK PO SCH ×2 (08:10→20:16)
--- NOTE | 2021-07-23 10:45 | Physical Therapy Daily Note ---
PT Daily Note-Current Subjective Patient in bed pre tx, agrees to PT reluctantly, has 7/10 pain in left hip. Appearance Patient in recliner post tx with nurse call, phone, tray, all needs met. Mental Status Patient Orientation: Person, Place, Situation Attachments: Oxygen Transfers SCALE: Activities may be completed with or without assistive devices. 5-Ojejcojwyr-bulolzk completes the activity by him/herself with no assistance from a helper. 5-Set-up or Clean-up Assistance-helper sets up or cleans up; patient completes activity. [place] assists only prior to or following the activity. 4-Supervision or Touching Assistance-helper provides verbal cues and/or touching/steadying and/or contact guard assistance as patient completes activity. Assistance may be provided throughout the activity or intermittently. 3-Partial/Moderate Assistance-helper does LESS THAN HALF the effort. [place] lifts, holds or supports trunk or limbs, but provides less than half the effort. 2-Substantial/Maximal Assistance-helper does MORE THAN HALF the effort. [place] lifts or holds trunk or limbs and provides more than half the effort. 7-Emabdfejw-opcuqy does ALL the effort. Patient does none of the effort to complete the activity. Or, the assistance of 2 or more helpers is required for the patient to complete the activity. If activity was not attempted, code reason: 7-Patient Refused. 9-Not Applicable-not attempted and the patient did not perform the activity before the current illness, exacerbation or injury. 10-Not Attempted due to Environmental Limitations-(lack of equipment, weather restraints, etc.). 88-Not Attempted due to Medical Conditions or Safety Concerns. Roll Left & Right (QC): 4 Lying to Sitting/Side of Bed(Q: 4 Sit to Stand (QC): 4 Chair/Sby-jt-Vxvqw Xfer(QC): 4 SBA for supine to sit, CGA for sit to stand and transfers Weight Bearing Right Lower Extremity: Right Full Weight Bearing Left Lower Extremity: Left Weight Bearing/Tolerated Gait Training Distance: 50' Walk 10 feet (QC): 4 Walk 50 ft with 2 Turns(QC): 4 Gait Persons Needed: 1 Gait Assistive Device: FWW slow ambulation, antalgic, patient states she needs to use the restroom, CGA for toilet transfer, she is able to wipe herself Exercises Seated Therapy Exercises: Ankle pumps, Long arc quads Seated Reps: 20 Treatments bed mobility and transfers, ambulation, LE strengthening Assessment Current Status: Fair Progress improving bed mobility and supine <-> sit PT Architectural Inspector Goals Alf Goals PT Architectural Inspector Goals Time Frame: Jul 20, 2021 Roll Left & Right (QC): 6 Sit to Lying (QC): 4 Lying-Sitting on Side/Bed(QC): 4 Sit to Stand (QC): 4 Chair/Qnj-wy-Vkpst Xfer(QC): 4 Walk 10 feet (QC): 4 Walk 50ft with 2 Turns (QC): 4 PT Plan Problem List Problem List: Activity Tolerance, Functional Strength, Safety, Balance, Gait, Transfer, Bed Mobility, ROM Treatment/Plan Treatment Plan: Continue Plan of Care Treatment Plan: Bed Mobility, Education, Functional Activity Josh, Functional Strength, Gait, Safety, Therapeutic Exercise, Transfers Treatment Duration: Jul 29, 2021 Frequency: 11 times per week Estimated Hrs Per Day: .25 hour per day Patient and/or Family Agrees t: Yes Safety Risks/Education Patient Education: Gait Training, Transfer Techniques, Correct Positioning, Safety Issues Teaching Recipient: Patient Teaching Methods: Demonstration, Discussion Response to Teaching: Reinforcement Needed Time/GCodes Time In: 1017 Time Out: 1028 Total Billed Treatment Time: 11 Total Billed Treatment 1 visit FA YUE GIORDANO PT Jul 23, 2021 10:45
[2021-07-23 11:20] VITALS: BP 140/65
[2021-07-23 15:58] VITALS: BP 146/69
[2021-07-23 19:42] VITALS: BP 128/60
[2021-07-23] MEDS: MONTELUKAST 10 MG (SINGULAIR) TAB PO SCH (20:15)
[2021-07-23] MEDS: PARoxetine 20 MG (PAXIL) TAB PO SCH (20:15)
[2021-07-24] VITALS (7 sets, daily range): BP systolic 116–199; BP diastolic 54–83
[2021-07-24] MEDS: cloNIDine 0.1 MG (CATAPRES) TAB PO PRN (05:08)
[2021-07-24] MEDS: ENOXAPARIN 40 MG/0.4 ML (LOVENOX) SYR SC SCH (05:08)
--- NOTE | 2021-07-24 07:17 | Progress Note - Hospitalist ---
Subjective HPI/CC On Admission Date Seen by Provider: Jul 24, 2021 Time Seen by Provider: 11:30 CC: Left femoral neck fracture HPI: This is a [facility] patient who lives with her son and rerpckod-zf-hsp who fell on the floor and suffered a left femoral neck fracture. Pt is very frail but appears to meet criteria for repair. Benefits outweigh the medical risk in my opinion. I have checked meds and labs and I have consulted cardiology and echocardiogram will be obtained to evaluate the systolic dysfunction that was seen on prior exam. Subjective/Events-last exam Patient doing well BM+ Pain controlled Review of Systems General: Fatigue Musculoskeletal: leg pain Objective Exam Vital Signs Vital Signs Date Time Temp Pulse Resp B/P (MAP) Pulse Ox O2 Delivery O2 Flow Rate FiO2 07/24/21 15:58 36.0 63 18 140/63 (88) 98 Nasal Cannula 1.00 Capillary Refill : Less Than 3 SecondsLess Than 3 Seconds General Appearance: No Apparent Distress, WD/WN, Chronically ill Respiratory: Chest Non Tender, Lungs Clear, Normal Breath Sounds, No Accessory Muscle Use, No Respiratory Distress Cardiovascular: Regular Rate, Rhythm, No Edema, No Gallop, No JVD, No Murmur, Normal Peripheral Pulses Neurologic/Psychiatric: Alert, Oriented x3, No Motor/Sensory Deficits, Normal Mood/Affect Results/Procedures Lab Patient resulted labs reviewed. Assessment/Plan Assessment and Plan Assess & Plan/Chief Complaint Assessment: Status post hip fracture repair Dementia Hypertension Postop anemia requiring transfusion Status post early pneumonia responded to breathing treatments and antibiotics Plan: Await [facility] placement 07/24/21: Await [facility] Clinical Quality Measures DVT/VTE Risk/Contraindication: Contraindications-Pharm: Pt at low risk Other: or MAE LENTZ DO Jul 24, 2021 07:16
[2021-07-24] MEDS: RT-ALBUTEROL SULF 2.5 MG/3 ML PRE-MIX VIAL INH SCH ×3 (07:37→21:00)
[2021-07-24] MEDS: amLODIPine 5 MG (NORVASC) TAB PO SCH (07:46)
[2021-07-24] MEDS: meTOprolol SUCCINATE 100 MG (TOPROL XL) TAB PO SCH (07:46)
[2021-07-24] MEDS: lisINopril 20 MG (PRINIVIL) TABLET PO SCH (07:46)
[2021-07-24] MEDS: LORATADINE (CLARITIN) 10 MG TAB PO SCH (07:46)
[2021-07-24] MEDS: ASPIRIN E.C. 81 MG (ECOTRIN) TAB PO SCH (07:46)
[2021-07-24] MEDS: polyethylene glycoL POWDER 17 GM (MIRALAX) PACK PO SCH ×2 (07:47→20:13)
[2021-07-24] MEDS: FUROSEMIDE 20 MG (LASIX) TAB PO SCH (07:47)
[2021-07-24] MEDS: SENNA W/DOCUSATE (SENOKOT S) TABLET PO SCH ×2 (07:47→20:13)
[2021-07-24] MEDS: METOCLOPRAMIDE 10 MG (REGLAN) TAB PO SCH ×2 (07:47→20:12)
[2021-07-24] MEDS: MONTELUKAST 10 MG (SINGULAIR) TAB PO SCH (20:12)
[2021-07-24] MEDS: PARoxetine 20 MG (PAXIL) TAB PO SCH (20:12)
[2021-07-25] MEDS: cloNIDine 0.1 MG (CATAPRES) TAB PO PRN (00:16)
[2021-07-25 03:39] VITALS: BP 162/70
[2021-07-25] MEDS: ENOXAPARIN 40 MG/0.4 ML (LOVENOX) SYR SC SCH (05:30)
[2021-07-25 06:50] LABS: BASOPHILS % (AUTO) 0 % (0-10); EOSINOPHILS # (AUTO) 0.1 10^3/uL (0.0-0.3); EOSINOPHILS % (AUTO) 1 % (0-10); HEMATOCRIT 28 % (35-52); HEMOGLOBIN 8.5 g/dL (11.5-16.0); LYMPHOCYTES # (AUTO) 1.1 10^3/uL (1.0-4.0); LYMPHOCYTES % (AUTO) 23 % (12-44); MEAN CORPUSCULAR HEMOGLOBIN 31 pg (25-34); MEAN CORPUSCULAR HGB CONC 31 g/dL (32-36); MEAN CORPUSCULAR VOLUME 102 fL (80-99); MEAN PLATELET VOLUME 10.5 fL (9.0-12.2); MONOCYTES # (AUTO) 0.5 10^3/uL (0.0-1.0); MONOCYTES % (AUTO) 9 % (0-12); NEUTROPHILS # (AUTO) 3.2 10^3/uL (1.8-7.8); NEUTROPHILS % (AUTO) 66 % (42-75); PLATELET COUNT 183 10^3/uL (130-400); WHITE BLOOD COUNT 4.8 10^3/uL (4.3-11.0)
[2021-07-25 07:24] LABS: BILIRUBIN,TOTAL 0.6 MG/DL (0.1-1.0); CALCIUM 8.6 MG/DL (8.5-10.1); CREATININE SERUM 0.98 MG/DL (0.60-1.30); POTASSIUM 3.7 MMOL/L (3.6-5.0); TOTAL PROTEIN 7.3 GM/DL (6.4-8.2)
[2021-07-25 08:00] VITALS: BP 187/88
[2021-07-25] MEDS: RT-ALBUTEROL SULF 2.5 MG/3 ML PRE-MIX VIAL INH SCH ×3 (08:00→22:43)
[2021-07-25] MEDS: IRON SUCROSE 200 MG/10 ML (VENOFER) VIAL IV SCH (08:38)
[2021-07-25] MEDS: LORATADINE (CLARITIN) 10 MG TAB PO SCH (08:40)
[2021-07-25] MEDS: FUROSEMIDE 20 MG (LASIX) TAB PO SCH (08:40)
[2021-07-25] MEDS: METOCLOPRAMIDE 10 MG (REGLAN) TAB PO SCH ×2 (08:40→20:09)
[2021-07-25] MEDS: polyethylene glycoL POWDER 17 GM (MIRALAX) PACK PO SCH ×2 (08:40→20:09)
[2021-07-25] MEDS: amLODIPine 5 MG (NORVASC) TAB PO SCH (08:40)
[2021-07-25] MEDS: SENNA W/DOCUSATE (SENOKOT S) TABLET PO SCH ×2 (08:40→20:09)
[2021-07-25] MEDS: lisINopril 20 MG (PRINIVIL) TABLET PO SCH (08:40)
[2021-07-25] MEDS: ASPIRIN E.C. 81 MG (ECOTRIN) TAB PO SCH (08:40)
[2021-07-25] MEDS: meTOprolol SUCCINATE 100 MG (TOPROL XL) TAB PO SCH (08:40)
--- NOTE | 2021-07-25 08:58 | Progress Note - Ortho ---
Progress Note Subjective Date of Exam 07/25/21 Chief Complaint POD#13 Cemented bipolar hemiarthroplasty left hip for displaced subcapital fracture HPI/Events since last exam Mrs. Su is 13 days postop cemented bipolar hemiarthroplasty left hip for displaced subcapital fracture. When I saw her she was sitting in bed eating breakfast. She has no complaints. Review of Systems Reviewed and no additions or change Allergies: Coded Allergies: cortisone (Verified Allergy, Unknown, 01/30/07) diphenhydramine (Verified Allergy, Unknown, 01/30/07) penicillin G (Verified Allergy, Unknown, 07/12/21) The patient is unaware that she has a penicillin allergy. She does not remember ever taking it and if she did what the reaction was. It has not been recently. Home Meds Active Scripts Sennosides/Docusate Sodium (Stool Softener-Laxative Tablet) 1 Each Tablet, 2 EA PO BID, #60 TAB Prov:MAE LENTZ DO 07/21/21 Hydrocodone Bit/Acetaminophen (HYDROcodone/APAP 10/325 TABLET) 1 Ea Tab, 1 EA PO Q4H PRN for PAIN-MODERATE (5-7), #20 TAB Prov:MAE LENTZ DO 07/21/21 Amlodipine Besylate (Amlodipine Besylate) 5 Mg Tablet, 5 MG PO DAILY, #30 TAB Prov:MAE LENTZ DO 07/21/21 Metoprolol Succinate (Metoprolol Succinate) 100 Mg Tab.er.24h, 100 MG PO DAILY, #30 TAB Prov:MAE LENTZ DO 07/21/21 Enoxaparin Sodium (Enoxaparin Sodium) 40 Mg/0.4 Ml Syringe, 40 MG SC Q24H, #14 SYRINGE Prov:MAE LENTZ DO 07/21/21 Furosemide (Furosemide) 20 Mg Tablet, 20 MG PO DAILY, #30 TAB Prov:MAE LENTZ DO 07/21/21 Paroxetine HCl (Paroxetine HCl) 40 Mg Tablet, 40 MG PO HS, #30 TAB Prov:MAE LENTZ DO 07/21/21 Trazodone HCl (Trazodone HCl) 50 Mg Tablet, 50 MG PO HS PRN for SLEEP, #30 TAB Prov:MAE LENTZ DO 07/21/21 Atorvastatin Calcium (Atorvastatin Calcium) 20 Mg Tablet, 20 MG PO DAILY, #30 TAB Prov:MAE LENTZ DO 07/21/21 Aspirin (Aspirin EC) 81 Mg Tablet.dr, 81 MG PO DAILY, #30 TAB Prov:MAE LENTZ DO 07/21/21 Montelukast Sodium (Montelukast Sodium) 10 Mg Tablet, 10 MG PO HS, #30 TAB Prov:MAE LENTZ DO 07/21/21 Lisinopril (Lisinopril) 40 Mg Tablet, 40 MG PO DAILY, #30 TAB Prov:MAE LENTZ DO 07/21/21 Metoclopramide HCl (Metoclopramide HCl) 10 Mg Tablet, 10 MG PO BID, #60 TAB Prov:MAE LENTZ DO 07/21/21 Cetirizine HCl (Cetirizine HCl) 10 Mg Tablet, 10 MG PO DAILY, #30 TAB Prov:MAE LENTZ DO 07/21/21 Reported Medications Metoprolol Succinate (Metoprolol Succinate) 50 Mg Tab.er.24h, 50 MG PO DAILY, TAB LAST FILLED 01-26-2021 #90/90 DAY SUPPLY 09/27/16 Objective Exam Constitutional: [] HEENT: [] Neck: [] Cardiovascular: [] Respiratory: [] Gastrointestinal: [] Genitourinary: [] Skin: []] Extremities: [Leg is in good position. No calf tenderness negative Homans. Good strength on dorsiflexion plantarflexion of the foot and ankle. Normal sensation of the foot and toes with good cap refill. Incision has no dressing and there is no drainage and no redness. Minimal hip pain with gentle range of motion of the leg] Neurologic: [] Psychiatric: [] Hematologic/lymphatic/immunologic: [] Vital Signs Vital Signs Date Time Temp Pulse Resp B/P (MAP) Pulse Ox O2 Delivery O2 Flow Rate FiO2 07/25/21 08:02 98 Nasal Cannula 1.00 07/25/21 03:39 36.0 75 20 162/70 (100) 98 Nasal Cannula 1.00 07/24/21 23:40 35.9 76 20 184/73 (110) 97 Nasal Cannula 1.00 07/24/21 20:15 Nasal Cannula 1.00 07/24/21 19:36 36.2 66 18 116/54 (74) 95 Nasal Cannula 1.00 07/24/21 15:58 36.0 63 18 140/63 (88) 98 Nasal Cannula 1.00 07/24/21 11:30 36.2 68 18 121/71 (88) 98 Nasal Cannula 1.00 I & O 07/25/21 07:00 Intake Total 1050 ml Balance 1050 ml Lab Results Laboratory Tests 07/25/21 06:13: White Blood Count 4.8, Red Blood Count 2.74L, Hemoglobin 8.5L, Hematocrit 28L, Mean Corpuscular Volume 102H, Mean Corpuscular Hemoglobin 31, Mean Corpuscular Hemoglobin Concent 31L, Red Cell Distribution Width 17.4H, Platelet Count 183, Mean Platelet Volume 10.5, Immature Granulocyte % (Auto) 1, Neutrophils (%) (Auto) 66, Lymphocytes (%) (Auto) 23, Monocytes (%) (Auto) 9, Eosinophils (%) (Auto) 1, Basophils (%) (Auto) 0, Neutrophils # (Auto) 3.2, Lymphocytes # (Auto) 1.1, Monocytes # (Auto) 0.5, Eosinophils # (Auto) 0.1, Basophils # (Auto) 0.0, Immature Granulocyte # (Auto) 0.0, Sodium Level 137, Potassium Level 3.7, Chl oride Level 102, Carbon Dioxide Level 28, Anion Gap 7, Blood Urea Nitrogen 20H, Creatinine 0.98, Estimat Glomerular Filtration Rate 54, BUN/Creatinine Ratio 20, Glucose Level 104, Calcium Level 8.6, Corrected Calcium 9.4, Total Bilirubin 0.6, Aspartate Amino Transf (AST/SGOT) 27, Alanine Aminotransferase (ALT/SGPT) 12, Alkaline Phosphatase 80, Total Protein 7.3, Albumin 3.0L Microbiology 07/15/21 Blood Culture - Final, Complete No growth 07/12/21 MRSA Screen - Final, Complete MRSA not isolated 07/12/21 Urine Culture - Final, Complete Escherichia coli Assessment and Plan Assessment Doing well 13 days postop Problem List Unchanged Plan Continue present treatment. Awaiting halfway placement. Kay out tomorrow or Sunday. Final Diagonsis Displaced subcapital fracture left hip status post cemented bipolar hemiar throplasty Level of the visit: Level 3 Clinical Quality Measures DVT/VTE Risk/Contraindication: Contraindications-Pharm: Pt at low risk Other: or MEIR CUMMINGS MD Jul 25, 2021 08:58
--- NOTE | 2021-07-25 10:19 | Physical Therapy Daily Note ---
PT Daily Note-Current Subjective Patient agrees to PT. Transfers SCALE: Activities may be completed with or without assistive devices. 0-Kiashyfhjz-xofhhcw completes the activity by him/herself with no assistance from a helper. 5-Set-up or Clean-up Assistance-helper sets up or cleans up; patient completes activity. [place] assists only prior to or following the activity. 4-Supervision or Touching Assistance-helper provides verbal cues and/or touching/steadying and/or contact guard assistance as patient completes activity. Assistance may be provided throughout the activity or intermittently. 3-Partial/Moderate Assistance-helper does LESS THAN HALF the effort. [place] lifts, holds or supports trunk or limbs, but provides less than half the effort. 2-Substantial/Maximal Assistance-helper does MORE THAN HALF the effort. [place] lifts or holds trunk or limbs and provides more than half the effort. 6-Wxqfyiycn-caypap does ALL the effort. Patient does none of the effort to complete the activity. Or, the assistance of 2 or more helpers is required for the patient to complete the activity. If activity was not attempted, code reason: 7-Patient Refused. 9-Not Applicable-not attempted and the patient did not perform the activity before the current illness, exacerbation or injury. 10-Not Attempted due to Environmental Limitations-(lack of equipment, weather restraints, etc.). 88-Not Attempted due to Medical Conditions or Safety Concerns. Lying to Sitting/Side of Bed(Q: 4 Sit to Stand (QC): 4 Chair/Lax-nh-Mkvnz Xfer(QC): 4 SBA with all mobility/unsafe with sitting to chair requiring VC's to not sit on the arm of the chair. Patient is impulsive to sit Weight Bearing Right Lower Extremity: Right Full Weight Bearing Left Lower Extremity: Left Weight Bearing/Tolerated Gait Training Distance: 200' Walk 10 feet (QC): 4 Walk 50 ft with 2 Turns(QC): 4 Walk 150 ft (QC): 4 Gait Assistive Device: FWW SBA with patient displaying decreased gait sequence with some shuffle sequences Exercises Seated Therapy Exercises: Long arc quads Seated Reps: 15 Assessment Patient is up in recliner with needs met. Patient tolerated treatment well. PT Assistant Grocery Goals Half-Way Goals PT Assistant Grocery Goals Time Frame: Jul 20, 2021 Roll Left & Right (QC): 6 Sit to Lying (QC): 4 Lying-Sitting on Side/Bed(QC): 4 Sit to Stand (QC): 4 Chair/Ucm-cl-Yirhk Xfer(QC): 4 Walk 10 feet (QC): 4 Walk 50ft with 2 Turns (QC): 4 PT Plan Treatment/Plan Treatment Plan: Continue Plan of Care Treatment Plan: Bed Mobility, Education, Functional Activity Josh, Functional Strength, Gait, Safety, Therapeutic Exercise, Transfers Treatment Duration: Jul 29, 2021 Frequency: 11 times per week Estimated Hrs Per Day: .25 hour per day Patient and/or Family Agrees t: Yes Time/GCodes Time In: 936 Time Out: 946 Total Billed Treatment Time: 10 Total Billed Treatment 1 visit GT 10 min TEGAN SAUL PT Jul 25, 2021 10:19
[2021-07-25 12:00] VITALS: BP 171/71
--- NOTE | 2021-07-25 12:51 | Occupational Ther Daily Note ---
OT Current Status-Daily Note Subjective Pt sleeping in chair, woke easily to name. Pt agrees to therapy. No c/o pain. Mental Status/Objective Patient Orientation: Person, Confused Attachments: IV, Oxygen (1L) ADL-Treatment Pt ambulated to bathroom using FWW. Toileting with SBA, cleansing self after voiding. Pt then ambulated to sink to wash hands and declines to complete oral care. Pt then requested to lay down. Min A to lift L LE into bed and pt able to position self in bed. After session, pt lying in bed with call light/phone in reach. All needs met in room. Therapy Code Descriptions/Definitions Functional [place] Measure: 0=Not Assessed/NA 4=Minimal Assistance 1=Total Assistance 5=Supervision or Setup 2=Maximal Assistance 6=Modified [place] 3=Moderate Assistance 7=Complete IndependenceSCALE: Activities may be completed with or without assistive devices. 5-Zentdqckjj-bqmcdhu completes the activity by him/herself with no assistance from a helper. 5-Set-up or Clean-up Assistance-helper sets up or cleans up; patient completes activity. [place] assists only prior to or following the activity. 4-Supervision or Touching Assistance-helper provides verbal cues and/or touching/steadying and/or contact guard assistance as patient completes activity. Assistance may be provided throughout the activity or intermittently. 3-Partial/Moderate Assistance-helper does LESS THAN HALF the effort. [place] lifts, holds or supports trunk or limbs, but provides less than half the effort. 2-Substantial/Maximal Assistance-helper does MORE THAN HALF the effort. [place] lifts or holds trunk or limbs and provides more than half the effort. 8-Ycavpsuni-eobtfk does ALL the effort. Patient does none of the effort to complete the activity. Or, the assistance of 2 or more helpers is required for the patient to complete the activity. If activity was not attempted, code reason: 7-Patient Refused. 9-Not Applicable-not attempted and the patient did not perform the activity before the current illness, exacerbation or injury. 10-Not Attempted due to Environmental Limitations-(lack of equipment, weather restraints, etc.). 88-Not Attempted due to Medical Conditions or Safety Concerns. Oral Hygiene (QC): 7 Toileting Hygiene (QC): 4 OT Tours Hostess Goals Usp Goals Time Frame: Jul 27, 2021 Oral Hygiene (QC): 5 Toileting Hygiene (QC): 4 Shower/Bathe Self (QC): 4 Upper Body Dressing (QC): 5 Lower Body Dressing (QC): 4 On/Off Footwear (QC): 4 1=Demonstrate adherence to instructed precautions during ADL tasks. 2=Patient will verbalize/demonstrate understanding of assistive devices/modifications for ADL. 3=Patient will improve strength/tolerance for activity to enable patient to perform ADL's. OT Education/Plan Problem List/Assessment Assessment: Decreased Activ Tolerance, Decreased Safety Aware, Decreased UE S trength, Impaired Self-Care Skills Discharge Recommendations Plan/Recommendations: Continue POC Treatment Plan/Plan of Care Patient would benefit from OT for education, treatment and training to promote independence in ADL's, mobility, safety and/or upper extremity function for ADL's. Plan of Care: ADL Retraining, Functional Mobility, UE Funct Exercise/Act, W/C Management Training Treatment Duration: Jul 27, 2021 Frequency: 3 times per week Estimated Hrs Per Day: .25 hour per day Rehab Potential: Fair Time/GCodes Start Time: 10:09 Stop Time: 10:19 Total Time Billed (hr/min): 10 Billed Treatment Time 1 visit-ADL 1 (10 min) NATHAN BURT Jul 25, 2021 12:51
--- NOTE | 2021-07-25 14:51 | Discharge Inst-Skilled Nursing ---
Discharge Inst-Skilled NF Patient Instructions Patient Problems: Left hip fracture Hypertension CAD CHF Consult/Follow Up/Orders Skilled NF Admit to: [facility] and Rehab Certifications SNF I certify that SNF services are required to be given on an inpatient basis because of the above named patient's need for group home care on a continuing basis for the conditions(s) for which he/she was receiving inpatient hospital services prior to his/her transfer to the SNF. Penitentiary Facility Order: Nursing Services, Autism Tutor-Evaluate & Treat, Physical Therapy-Evaluate & Treat Oxygen Delivery Method: Nasal Cannula Discharge Diet: No Restrictions Daily Activity as Tolerated: Yes Discharge Medications New, Converted or Re-Newed RX: Transmitted to Pharmacy New Medications: Amlodipine Besylate (Amlodipine Besylate) 5 Mg Tablet 5 MG PO DAILY, #30 TAB Enoxaparin Sodium (Enoxaparin Sodium) 40 Mg/0.4 Ml Syringe 40 MG SC Q24H, #14 SYRINGE Hydrocodone Bit/Acetaminophen (HYDROcodone/APAP 10/325 TABLET) 1 Ea Tab 1 EA PO Q4H PRN for PAIN-MODERATE (5-7), #20 TAB Metoprolol Succinate (Metoprolol Succinate) 100 Mg Tab.er.24h 100 MG PO DAILY, #30 TAB Sennosides/Docusate Sodium (Stool Softener-Laxative Tablet) 1 Each Tablet 2 EA PO BID, #60 TAB Continued Medications: Aspirin (Aspirin EC) 81 Mg Tablet.dr 81 MG PO DAILY, #30 TAB (This prescription has been renewed) Atorvastatin Calcium (Atorvastatin Calcium) 20 Mg Tablet 20 MG PO DAILY, #30 TAB (This prescription has been renewed) Cetirizine HCl (Cetirizine HCl) 10 Mg Tablet 10 MG PO DAILY, #30 TAB (This prescription has been renewed) Furosemide (Furosemide) 20 Mg Tablet 20 MG PO DAILY, #30 TAB (This prescription has been renewed) Lisinopril (Lisinopril) 40 Mg Tablet 40 MG PO DAILY, #30 TAB (This prescription has been renewed) Metoclopramide HCl (Metoclopramide HCl) 10 Mg Tablet 10 MG PO BID, #60 TAB (This prescription has been renewed) Montelukast Sodium (Montelukast Sodium) 10 Mg Tablet 10 MG PO HS, #30 TAB (This prescription has been renewed) Paroxetine HCl (Paroxetine HCl) 40 Mg Tablet 40 MG PO HS, #30 TAB (This prescription has been renewed) Trazodone HCl (Trazodone HCl) 50 Mg Tablet 50 MG PO HS PRN for SLEEP, #30 TAB (This prescription has been renewed) Discontinued Medications: Metoprolol Succinate (Metoprolol Succinate) 50 Mg Tab.er.24h 50 MG PO DAILY, TAB LAST FILLED 01-26-2021 #90/90 DAY SUPPLY Aaron Olsen Jul 25, 2021 14:48 AARON OLSEN MD Jul 25, 2021 14:50
[2021-07-25 15:22] VITALS: BP 158/80
[2021-07-25 16:00] VITALS: BP 181/81
[2021-07-25 19:05] VITALS: BP 129/58
[2021-07-25] MEDS: PARoxetine 20 MG (PAXIL) TAB PO SCH (20:09)
[2021-07-25] MEDS: MONTELUKAST 10 MG (SINGULAIR) TAB PO SCH (20:09)
--- NOTE | 2021-07-25 20:15 | Progress Note ---
Subjective Subjective/Events-last exam Pt states she still has a fair bit of pain and weakness when she gets up, but overall is doing okay. Objective Exam Last Set of Vital Signs Vital Signs Date Time Temp Pulse Resp B/P (MAP) Pulse Ox O2 Delivery O2 Flow Rate FiO2 07/25/21 19:05 35.6 66 18 129/58 (81) 96 Nasal Cannula 1.00 Capillary Refill : Less Than 3 SecondsLess Than 3 Seconds I&O Intake and Output 07/25/21 00:00 Intake Total 1200 ml Balance 1200 ml Intake Oral 1200 ml # Voids 6 # Bowel Movements 4 General: Alert, No Acute Distress Lungs: Clear to Auscultation, Normal Air Movement Heart: Regular Rate, No Murmurs Abdomen: Normal Bowel Sounds, Soft Neuro: Normal Speech Psych/Mental Status: Mood NL Results/Procedures Lab Laboratory Tests 07/25/21 06:13: White Blood Count 4.8, Red Blood Count 2.74L, Hemoglobin 8.5L, Hematocrit 28L, Mean Corpuscular Volume 102H, Mean Corpuscular Hemoglobin 31, Mean Corpuscular Hemoglobin Concent 31L, Red Cell Distribution Width 17.4H, Platelet Count 183, Mean Platelet Volume 10.5, Immature Granulocyte % (Auto) 1, Neutrophils (%) ( Auto) 66, Lymphocytes (%) (Auto) 23, Monocytes (%) (Auto) 9, Eosinophils (%) (Auto) 1, Basophils (%) (Auto) 0, Neutrophils # (Auto) 3.2, Lymphocytes # (Auto) 1.1, Monocytes # (Auto) 0.5, Eosinophils # (Auto) 0.1, Basophils # (Auto) 0.0, Immature Granulocyte # (Auto) 0.0, Sodium Level 137, Potassium Level 3.7, Chloride Level 102, Carbon Dioxide Level 28, Anion Gap 7, Blood Urea Nitrogen 20H, Creatinine 0.98, Estimat Glomerular Filtration Rate 54, BUN/Creatinine Ratio 20, Glucose Level 104, Calcium Level 8.6, Corrected Calcium 9.4, Total Bilirubin 0.6, Aspartate Amino Transf (AST/SGOT) 27, Alanine Aminotransferase (ALT/SGPT) 12, Alkaline Phosphatase 80, Total Protein 7.3, Albumin 3.0L 07/25/21 16:15: SARS-CoV-2 RNA (RT-PCR) Negative Microbiology 07/15/21 Blood Culture - Final, Complete No growth 07/12/21 MRSA Screen - Final, Complete MRSA not isolated 07/12/21 Urine Culture - Final, Complete Escherichia coli Radiology NAME: L[facility] LOPEZ [facility] REC#: [id number] PT STATUS: REG ER : 1940 PHYSICIAN: ANDREW LOPEZ DO ADMIT DATE: 07/12/21/ER Draft Date of Exam:07/12/21 CHEST 1 VIEW, AP/PA ONLY INDICATION: Hip pain, fall, fracture. COMPARISON: 01/15/2021. FINDINGS: Single view of the chest demonstrates stable cardiac enlargement. Lungs are clear. There is no pneumothorax but osseous structures are age-appropriate. IMPRESSION: Stable cardiac enlargement without pulmonary edema or acute infiltrate. Dictated on workstation # [id number] Dict: 07/12/21623 Trans: 07/12/21626 [id number] Interpreted by: ROMY CHAIDEZ Electronically signed by: Assessment/Plan Assessment/Plan (1) Closed left hip fracture Status: Acute Assessment & Plan: s/p repair by Ortho, awaiting SNF placement. Qualifiers: Qualified Codes: S72.002A - Fracture of unspecified part of neck of left femur, initial encounter for closed fracture (2) Urinary tract infection Status: Acute Assessment & Plan: E coli with no resistance. Completed course of antibiotics. Qualifiers: Qualified Codes: N39.0 - Urinary tract infection, site not specified (3) Mixed hyperlipidemia (4) Primary hypertension (5) Chronic systolic heart failure Status: Chronic (6) Hypertension Status: Chronic (7) Anemia Status: Chronic Assessment & Plan: Iron studies with low ferritin and high TIBC 10/2020, EGD/colo done 11/2020 with polyps, no bleeding source. Acute on chronic anemia due to acute blood loss with surgery, has had 2 units PRBCs and IV iron. Qualifiers: Qualified Codes: D50.8 - Other iron deficiency anemias (8) DVT prophylaxis Status: Acute Assessment & Plan: Enoxaparin Clinical Quality Measures DVT/VTE Risk/Contraindication: Contraindications-Pharm: Pt at low risk Other: or AARON COULTER MD Jul 25, 2021 20:15
[2021-07-26 00:01] VITALS: BP 149/64
[2021-07-26 04:14] VITALS: BP 162/70
[2021-07-26] MEDS: ENOXAPARIN 40 MG/0.4 ML (LOVENOX) SYR SC SCH (05:30)
[2021-07-26 07:42] VITALS: BP 172/71
[2021-07-26] MEDS: FUROSEMIDE 20 MG (LASIX) TAB PO SCH (09:15)
[2021-07-26] MEDS: polyethylene glycoL POWDER 17 GM (MIRALAX) PACK PO SCH (09:15)
[2021-07-26] MEDS: LORATADINE (CLARITIN) 10 MG TAB PO SCH (09:15)
[2021-07-26] MEDS: ASPIRIN E.C. 81 MG (ECOTRIN) TAB PO SCH (09:15)
[2021-07-26] MEDS: meTOprolol SUCCINATE 100 MG (TOPROL XL) TAB PO SCH (09:15)
[2021-07-26] MEDS: METOCLOPRAMIDE 10 MG (REGLAN) TAB PO SCH (09:15)
[2021-07-26] MEDS: amLODIPine 5 MG (NORVASC) TAB PO SCH (09:15)
[2021-07-26] MEDS: lisINopril 20 MG (PRINIVIL) TABLET PO SCH (09:16)
[2021-07-26] MEDS: ACETAMINOPHEN 325 MG TABLET PO PRN (09:16)
[2021-07-26] MEDS: SENNA W/DOCUSATE (SENOKOT S) TABLET PO SCH (09:16)
[2021-07-26] MEDS: RT-ALBUTEROL SULF 2.5 MG/3 ML PRE-MIX VIAL INH SCH ×2 (09:51→15:30)
[2021-07-26 11:32] VITALS: BP 150/71
--- NOTE | 2021-07-26 13:09 | Occupational Ther Daily Note ---
OT Current Status-Daily Note Subjective Pt alert, sitting in recliner. Pt agrees to therapy. Pt c/o L LE pain, though did not rate. Pt possible dc today to NH. Mental Status/Objective Patient Orientation: Person, Unable to Assess Attachments: IV ADL-Treatment Therapy Code Descriptions/Definitions Functional [place] Measure: 0=Not Assessed/NA 4=Minimal Assistance 1=Total Assistance 5=Supervision or Setup 2=Maximal Assistance 6=Modified [place] 3=Moderate Assistance 7=Complete IndependenceSCALE: Activities may be completed with or without assistive devices. 6-Bhknryrrge-ezfhwkq completes the activity by him/herself with no assistance from a helper. 5-Set-up or Clean-up Assistance-helper sets up or cleans up; patient completes activity. [place] assists only prior to or following the activity. 4-Supervision or Touching Assistance-helper provides verbal cues and/or touching/steadying and/or contact guard assistance as patient completes activity. Assistance may be provided throughout the activity or intermittently. 3-Partial/Moderate Assistance-helper does LESS THAN HALF the effort. [place] lifts, holds or supports trunk or limbs, but provides less than half the effort. 2-Substantial/Maximal Assistance-helper does MORE THAN HALF the effort. [place] lifts or holds trunk or limbs and provides more than half the effort. 9-Qcmyqaowk-ktflob does ALL the effort. Patient does none of the effort to complete the activity. Or, the assistance of 2 or more helpers is required for the patient to complete the activity. If activity was not attempted, code reason: 7-Patient Refused. 9-Not Applicable-not attempted and the patient did not perform the activity before the current illness, exacerbation or injury. 10-Not Attempted due to Environmental Limitations-(lack of equipment, weather restraints, etc.). 88-Not Attempted due to Medical Conditions or Safety Concerns. Eating (QC): 5 (assist to open containers.) Other Treatment Pt ambulated around room 2x's using FWW without any LOB and able to manipulate FWW when turning without difficulty. After session, pt sitting in recliner with call light/phone in reach. All needs met in room. OT Detention Goals Detention Goals Time Frame: Jul 27, 2021 Oral Hygiene (QC): 5 Toileting Hygiene (QC): 4 Shower/Bathe Self (QC): 4 Upper Body Dressing (QC): 5 Lower Body Dressing (QC): 4 On/Off Footwear (QC): 4 1=Demonstrate adherence to instructed precautions during ADL tasks. 2=Patient will verbalize/demonstrate understanding of assistive d evices/modifications for ADL. 3=Patient will improve strength/tolerance for activity to enable patient to perform ADL's. OT Education/Plan Problem List/Assessment Assessment: Decreased Activ Tolerance, Impaired Self-Care Skills Discharge Recommendations Plan/Recommendations: Continue POC Treatment Plan/Plan of Care Patient would benefit from OT for education, treatment and training to promote independence in ADL's, mobility, safety and/or upper extremity function for ADL's. Plan of Care: ADL Retraining, Functional Mobility, UE Funct Exercise/Act, W/C Management Training Treatment Duration: Jul 27, 2021 Frequency: 3 times per week Estimated Hrs Per Day: .25 hour per day Rehab Potential: Fair Time/GCodes Start Time: 12:56 Stop Time: 13:06 Total Time Billed (hr/min): 10 Billed Treatment Time 1 visit- FA 1 (10 min) NATHAN BURT Jul 26, 2021 13:09
--- NOTE | 2021-07-26 13:47 | Physical Therapy Daily Note ---
PT Daily Note-Current Subjective Patient in the BR with SERVICE DESK AGENT in the room upon PT arrival, patient agreeable to treatment. Mental Status Patient Orientation: Person Transfers SCALE: Activities may be completed with or without assistive devices. 4-Izxwppoxyo-axstyyt completes the activity by him/herself with no assistance from a helper. 5-Set-up or Clean-up Assistance-helper sets up or cleans up; patient completes activity. Mcrae Helena assists only prior to or following the activity. 4-Supervision or Touching Assistance-helper provides verbal cues and/or touching/steadying and/or contact guard assistance as patient completes activity. Assistance may be provided throughout the activity or intermittently. 3-Partial/Moderate Assistance-helper does LESS THAN HALF the effort. Mcrae Helena l ifts, holds or supports trunk or limbs, but provides less than half the effort. 2-Substantial/Maximal Assistance-helper does MORE THAN HALF the effort. Mcrae Helena lifts or holds trunk or limbs and provides more than half the effort. 4-Bjcwsdotw-wknczj does ALL the effort. Patient does none of the effort to complete the activity. Or, the assistance of 2 or more helpers is required for t he patient to complete the activity. If activity was not attempted, code reason: 7-Patient Refused. 9-Not Applicable-not attempted and the patient did not perform the activity before the current illness, exacerbation or injury. 10-Not Attempted due to Environmental Limitations-(lack of equipment, weather restraints, etc.). 88-Not Attempted due to Medical Conditions or Safety Concerns. Sit to Stand (QC): 4 Chair/Gzx-sg-Urxpy Xfer(QC): 4 Toilet Transfer (QC): 4 Weight Bearing Right Lower Extremity: Right Full Weight Bearing Left Lower Extremity: Left Weight Bearing/Tolerated Gait Training Does the Patient Walk?: Yes Distance: 200 Walk 10 feet (QC): 5 Walk 50 ft with 2 Turns(QC): 4 Walk 150 ft (QC): 4 Gait Persons Needed: 1 Gait Assistive Device: FWW Assessment Current Status: Fair Progress Patient agreeable to treatment. Patient performs all observed transfers with SBA and verbal cues. Patient ambulates 200 feet with FWW, with CGA and verbal cues for safety, posture and progression. Patient in chair post treatment with all needs met, nursing notified, and call light in reach. PT Railroad Accountant Goals Railroad Accountant Goals PT Usp Goals Time Frame: Jul 20, 2021 Roll Left & Right (QC): 6 Sit to Lying (QC): 4 Lying-Sitting on Side/Bed(QC): 4 Sit to Stand (QC): 4 Chair/Dsa-wx-Dfciz Xfer(QC): 4 Walk 10 feet (QC): 4 Walk 50ft with 2 Turns (QC): 4 PT Plan Treatment/Plan Treatment Plan: Continue Plan of Care Treatment Plan: Bed Mobility, Education, Functional Activity Josh, Functional Strength, Gait, Safety, Therapeutic Exercise, Transfers Treatment Duration: Jul 29, 2021 Frequency: 11 times per week Estimated Hrs Per Day: .25 hour per day Patient and/or Family Agrees t: Yes Safety Risks/Education Patient Education: Gait Training Teaching Recipient: Patient Teaching Methods: Demonstration, Discussion Response to Teaching: Verbalize Understanding, Reinforcement Needed Time/GCodes Time In: 1321 Time Out: 1340 Total Billed Treatment Time: 19 Total Billed Treatment Visit, Gait LAKISHA JONES PT Jul 26, 2021 13:47
[2021-07-26 16:10] VITALS: BP 164/81
[2021-07-26 17:30] VITALS: BP 164/81
--- NOTE | 2021-07-26 17:44 | Discharge Summary ---
Discharge Summary Hospital Course Problems/Diagnosis: (1) Closed left hip fracture Status: Acute Assessment & Plan: s/p repair by Ortho, discharged to SNF. Qualifiers: Qualified Codes: S72.002A - Fracture of unspecified part of neck of left femur, initial encounter for closed fracture (2) Urinary tract infection Status: Acute Assessment & Plan: E coli with no resistance. Completed course of antibiotics. Qualifiers: Qualified Codes: N39.0 - Urinary tract infection, site not specified (3) Mixed hyperlipidemia (4) Primary hypertension (5) Chronic systolic heart failure Status: Chronic (6) Hypertension Status: Chronic (7) Anemia Status: Chronic Assessment & Plan: Iron studies with low ferritin and high TIBC 10/2020, EGD/colo done 11/2020 with polyps, no bleeding source. Acute on chronic anemia due to acute blood loss with surgery, has had 2 units PRBCs and IV iron. Qualifiers: Qualified Codes: D50.8 - Other iron deficiency anemias Hospital Course Date of Admission: Jul 12, 2021 at 07:10 Admission Diagnosis : See problem list Family Physician/Provider: [facility] Date of Discharge: 07/26/21 Discharge Diagnosis: See problem list Hospital Course: See problem list Labs and Pending Lab Test: Microbiology 07/15/21 Blood Culture - Final, Complete No growth 07/12/21 MRSA Screen - Final, Complete MRSA not isolated 07/12/21 Urine Culture - Final, Complete Escherichia coli Home Meds Active Stool Softener-Laxative Tablet (Sennosides/Docusate Sodium) 1 Each Tablet 2 Ea PO BID HYDROcodone/APAP 10/325 TABLET (Acetaminophen/Hydrocodone Bitart) 1 Ea Tab 1 Ea PO Q4H PRN Amlodipine Besylate 5 Mg Tablet 5 Mg PO DAILY Metoprolol Succinate 100 Mg Tab.er.24h 100 Mg PO DAILY Enoxaparin Sodium 40 Mg/0.4 Ml Syringe 40 Mg SC Q24H Furosemide 20 Mg Tablet 20 Mg PO DAILY Paroxetine HCl 40 Mg Tablet 40 Mg PO HS Trazodone HCl 50 Mg Tablet 50 Mg PO HS PRN Atorvastatin Calcium 20 Mg Tablet 20 Mg PO DAILY Aspirin EC (Aspirin) 81 Mg Tablet.dr 81 Mg PO DAILY Montelukast Sodium 10 Mg Tablet 10 Mg PO HS Lisinopril 40 Mg Tablet 40 Mg PO DAILY Metoclopramide HCl 10 Mg Tablet 10 Mg PO BID Cetirizine HCl 10 Mg Tablet 10 Mg PO DAILY Assessment/Pt DC Instructions Follow up with primary physician after [facility] discharge. Discharge Diet: Cardiac Diet Activity as Tolerated: Yes Discharge Physical Examination Allergies: Coded Allergies: cortisone (Verified Allergy, Unknown, 01/30/07) diphenhydramine (Verified Allergy, Unknown, 01/30/07) penicillin G (Verified Allergy, Unknown, 07/12/21) The patient is unaware that she has a penicillin allergy. She does not remember ever taking it and if she did what the reaction was. It has not been recently. General Appearance: No Apparent Distress, WD/WN Respiratory: Lungs Clear, Normal Breath Sounds Cardiovascular: Regular Rate, Rhythm, No Murmur Gastrointestinal: Normal Bowel Sounds, Non Tender, Soft Skin: Normal Color, Warm/Dry Neurologic/Psychiatric: Alert, Normal Mood/Affect Clinical Quality Measures DVT/VTE Risk/Contraindication: Contraindications-Pharm: Pt at low risk Other: or AARON COULTER MD Jul 26, 2021 17:44
== END 2021-07-26 17:45 | DRG 521 ==
LOC: EDUNIT# 05:19 → ER 05:21 → 4TH 07:10
PROVIDERS: ADMIT Internal Medicine; ATTEND Family Medicine
PROC: 0SRS019 Replacement of Left Hip Joint, Femoral Surface with Metal Synthetic Substitute, Cemented, Open Approach (ICD-10-PCS; principal; 2021-07-12 11:51)
DX: S72.012A Unspecified intracapsular fracture of left femur, initial encounter for closed fracture (principal); I50.23 Acute on chronic systolic (congestive) heart failure; I42.9 Cardiomyopathy, unspecified; N39.0 Urinary tract infection, site not specified; D62 Acute posthemorrhagic anemia; I25.10 Atherosclerotic heart disease of native coronary artery without angina pectoris; I11.0 Hypertensive heart disease with heart failure; N28.9 Disorder of kidney and ureter, unspecified; Z20.822 Contact with and (suspected) exposure to COVID-19; E78.00 Pure hypercholesterolemia, unspecified; E78.2 Mixed hyperlipidemia; J44.9 Chronic obstructive pulmonary disease, unspecified; I44.7 Left bundle-branch block, unspecified; M19.91 Primary osteoarthritis, unspecified site; K21.9 Gastro-esophageal reflux disease without esophagitis; F41.9 Anxiety disorder, unspecified; Z87.891 Personal history of nicotine dependence; Z79.82 Long term (current) use of aspirin; Z88.0 Allergy status to penicillin; Z88.8 Allergy status to other drugs, medicaments and biological substances; W01.0XXA Fall on same level from slipping, tripping and stumbling without subsequent striking against object, initial encounter
CPT/HCPCS: 36415; 51702; 71045; 71046; 73501; 73552; 73560; 80053; 80061; 81000; 82805; 83540; 83605; 83880; 84145; 85025; 85610; 85730; 86850; 86900; 86901; 86922; 87040; 87077; 87081; 87088; 87186; 87635; 87636; 88305; 88311; 93005; 93041; 93306; 94640; 94664; 94760; 96361; 96365; 96375

== ENCOUNTER → 2021-08-01 | Outpatient (CLI) | payer MEDICARE, MEDICAID ==
[~2021-08-01] MED LIST changes: +ACHYD1T PO; +AMLO-250 PO; +ATOR20TA66 PO; +DICL100G13 TOP; +ENOX40DI8 SC; +MTP100TCR PO; +PARO40TA3 PO; +SENN1TAB76 PO; +TRZ50T PO
--- NOTE | 2021-08-01 09:22 | Diagnostic Imaging Report ---
INDICATION: Left hip replacement followup. Single AP view left hip demonstrates well aligned left hip prosthesis. There is no sign of fracture or device loosening. There is no unexpected foreign body. IMPRESSION: Well aligned left hip prosthesis with no acute abnormality. Dictated by: Dictated on workstation # [id number]
== END ==
LOC: ORTHO 08:57
PROVIDERS: ATTEND Orthopaedic Surgery
DX: Z96.642 Presence of left artificial hip joint (principal)
CPT/HCPCS: 73501

== ENCOUNTER → 2021-08-29 | Outpatient (CLI) | payer MEDICARE, MEDICAID | LOC: ORTHO 11:07 | PROVIDERS: ATTEND Orthopaedic Surgery | DX: Z96.642 Presence of left artificial hip joint (principal) ==

== ENCOUNTER 2021-10-11 08:01 | Inpatient (IN) | payer MEDICARE, MEDICAID ==
[~2021-10-11] VITALS: Ht 164.5 cm; Wt 83.5 kg
[2021-10-11] VITALS (10 sets, daily range): BP systolic 166–467; BP diastolic 73–107
--- NOTE | 2021-10-11 08:23 | ED Respiratory ---
General Chief Complaint: Respiratory Problems Stated Complaint: SOA Nursing Triage Note: PT C/O SHORTNESS OF BREATH THAT STARTED THIS AM, CALLED EMS, PT PLACED ON O2 4L/NC Source: patient Exam Limitations: no limitations History of Present Illness Date Seen by Provider: Oct 11, 2021 Time Seen by Provider: 08:04 Initial Comments Patient to the ER by EMS from home with chief complaint she woke up being short of breath today. No fevers or chills cough nausea vomiting or chest pain. No diarrhea or constipation. She has no known sick contacts and lives at home with her granddaughter. She had COVID about 9 months ago. She does not have a known history of COPD asthma or oxygen dependence. EMS found her to be in the mid 80s on room air and put her on 4 L which brought her up to 99 to 100% and significantly improved her symptoms. No history of blood clots or coronary disease. She has a history of hypertension but no hyperlipidemia diabetes. She quit smoking many many years ago. Allergies and Home Medications Allergies Coded Allergies: cortisone (Verified Allergy, Unknown, 01/30/07) diphenhydramine (Verified Allergy, Unknown, 01/30/07) penicillin G (Verified Allergy, Unknown, 07/12/21) The patient is unaware that she has a penicillin allergy. She does not remember ever taking it and if she did what the reaction was. It has not been recently. Patient Home Medication List Home Medication List Reviewed: Yes Amlodipine Besylate (Amlodipine Besylate) 5 Mg Tablet, 5 MG PO DAILY Prescribed by: MAE LENTZ on 07/21/21 114 Aspirin (Aspirin EC) 81 Mg Tablet.dr, 81 MG PO DAILY Prescribed by: MAE LENTZ on 07/21/21 114 Atorvastatin Calcium (Atorvastatin Calcium) 20 Mg Tablet, 20 MG PO DAILY Prescribed by: MAE LENTZ on 07/21/21 114 Cetirizine HCl (Cetirizine HCl) 10 Mg Tablet, 10 MG PO DAILY Prescribed by: MAE LENTZ on 07/21/21 114 Enoxaparin Sodium (Enoxaparin Sodium) 40 Mg/0.4 Ml Syringe, 40 MG SC Q24H Prescribed by: MAE LENTZ on 07/21/21 1146 Furosemide (Furosemide) 20 Mg Tablet, 20 MG PO DAILY Prescribed by: MAE LENTZ on 07/21/21 1146 Hydrocodone Bit/Acetaminophen (HYDROcodone/APAP 10/325 TABLET) 1 Ea Tab, 1 EA PO Q4H PRN for PAIN-MODERATE (5-7) Prescribed by: MAE LENTZ on 07/21/21 114 Lisinopril (Lisinopril) 40 Mg Tablet, 40 MG PO DAILY Prescribed by: MAE LENTZ on 07/21/21 114 Metoclopramide HCl (Metoclopramide HCl) 10 Mg Tablet, 10 MG PO BID Prescribed by: MAE LENTZ on 07/21/21 114 Metoprolol Succinate (Metoprolol Succinate) 100 Mg Tab.er.24h, 100 MG PO DAILY Prescribed by: MAE LENTZ on 07/21/21 114 Montelukast Sodium (Montelukast Sodium) 10 Mg Tablet, 10 MG PO HS Prescribed by: MAE LENTZ on 07/21/21 114 Paroxetine HCl (Paroxetine HCl) 40 Mg Tablet, 40 MG PO HS Prescribed by: MAE LENTZ on 07/21/21 114 Sennosides/Docusate Sodium (Stool Softener-Laxative Tablet) 1 Each Tablet, 2 EA PO BID Prescribed by: MAE LENTZ on 07/21/21 114 Trazodone HCl (Trazodone HCl) 50 Mg Tablet, 50 MG PO HS PRN for SLEEP Prescribed by: MAE LENTZ on 07/21/21 114 Review of Systems Review of Systems Constitutional: No chills, No diaphoresis EENTM: No ear discharge, No ear pain Respiratory: No cough, No short of breath Cardiovascular: No chest pain, No edema Gastrointestinal: No abdominal pain, No nausea Genitourinary: No discharge, No dysuria Musculoskeletal: No back pain, No joint pain Psychiatric/Neurological: Denies Headache, Denies Numbness All Other Systems Reviewed Negative Unless Noted: Yes Past Wixzbtp-Vshstv-Qedpmu Hx Patient Social History Tobacco Use?: No Use of E-Cig and/or Vaping dev: No Substance use?: No Immunizations Up To Date Tetanus Booster (TDap): Less than 5yrs PED Vaccines UTD: Yes Seasonal Allergies Seasonal Allergies: Yes Past Medical History Surgery/Hospitalization HX: htn, gerd, high cholesterol, asthma Surgeries: Yes (RIGHT BREAST BIOPSY,ROTATOR CUFF) Section, Gallbladder, Hysterectomy, Oophorectomy, Orthopedic, Tonsillectomy Respiratory: Yes (COVID-19 12/2020-NO HOSPITALIZATION OR TREATMENT) Asthma, COPD Cardiac: Yes Cardiomyopathy, Hypertension Neurological: No Reproductive Disorders: No Sexually Transmitted Disease: No Genitourinary: Yes UTI-Chronic Gastrointestinal: Yes Gastroesophageal Reflux Musculoskeletal: Yes (FALLS) Arthritis Endocrine: No HEENT: No Cancer: No Psychosocial: No Blood Disorders: Yes (ANEMIA) Adverse Reaction/Blood Tranf: No Family Medical History No Pertinent Family Hx, Cancer Physical Exam Vital Signs - First Documented 10/11/21 08:12 Temp 35.2 Pulse 71 Resp 16 Pulse Ox 99 O2 Delivery Nasal Cannula O2 Flow Rate 2.00 Capillary Refill : Height: 5'4.00" Weight: 188lbs. 0.0oz. [id number]; 30.00 BMI Method:Stated General Appearance: moderate distress, obese Eyes: Bilateral Eye Normal Inspection, Bilateral Eye PERRL, Bilateral Eye EOMI HEENT: PERRL/EOMI, normal ENT inspection, pharynx normal Neck: full range of motion, supple, normal inspection Respiratory: no accessory muscle use, respiratory distress (On 2 L maintaining O2 sats in the mid to low 90s), crackles (Few bibasilar crackles); No wheezing Cardiovascular: normal peripheral pulses, regular rate, rhythm Gastrointestinal: normal bowel sounds, non tender, soft Neurologic/Psychiatric: alert, normal mood/affect, oriented x 3 Skin: normal color, warm/dry Focused Exam Lactate Level 10/11/21 08:20: Lactic Acid Level 0.60 Lactic Acid Level Laboratory Tests Test 10/11/21 08:20 Lactic Acid Level 0.60 MMOL/L (0.50-2.00) Procedures/Interventions Suture Size: 5-0 Progress/Results/Core Measures Suspected Sepsis SIRS Temperature: Pulse: 71 Respiratory Rate: 16 Laboratory Tests 10/11/21 08:20: White Blood Count 6.2 Blood Pressure / Mean: 10/11/21 08:20: Lactic Acid Level 0.60 Laboratory Tests 10/11/21 08:20: Creatinine 0.82, Platelet Count 154, Total Bilirubin 0.3 10/11/21 08:43: INR Comment 1.0 Results/Orders Lab Results Laboratory Tests Test 10/11/21 08:15 10/11/21 08:20 10/11/21 08:41 10/11/21 08:43 Range/Units Blood Gas Puncture Site R RADIAL Blood Gas Patient Temperature 35.2 Arterial Blood pH 7.32 *L 7.37-7.43 Arterial Blood Partial Pressure CO2 59 H 35-45 MMHG Arterial Blood Partial Pressure O2 133 H 79-93 MMHG Arterial Blood HCO3 31 H 23-27 MMOL/L Arterial Blood Total CO2 32.7 H 21.0-31.0 MMOL/L Arterial Blood Oxygen Saturation 99 94-100 % Arterial Blood Base Excess 4.7 H -2.5-2.5 MMOL/L Iam Test POSITIVE Blood Gas Ventilator Setting NO Blood Gas Inspired Oxygen 2 L White Blood Count 6.2 4.3-11.0 10^3/uL Red Blood Count 3.82 3.80-5.11 10^6/uL Hemoglobin 11.8 11.5-16.0 g/dL Hematocrit 38 35-52 % Mean Corpuscular Volume 100 H 80-99 fL Mean Corpuscular Hemoglobin 31 25-34 pg Mean Corpuscular Hemoglobin Concent 31 L 32-36 g/dL Red Cell Distribution Width 14.3 10.0-14.5 % Platelet Count 154 130-400 10^3/uL Mean Platelet Volume 10.3 9.0-12.2 fL Immature Granulocyte % (Auto) 0 % Neutrophils (%) (Auto) 70 42-75 % Lymphocytes (%) (Auto) 20 12-44 % Monocytes (%) (Auto) 7 0-12 % Eosinophils (%) (Auto) 2 0-10 % Basophils (%) (Auto) 1 0-10 % Neutrophils # (Auto) 4.3 1.8-7.8 10^3/uL Lymphocytes # (Auto) 1.3 1.0-4.0 10^3/uL Monocytes # (Auto) 0.4 0.0-1.0 10^3/uL Eosinophils # (Auto) 0.1 0.0-0.3 10^3/uL Basophils # (Auto) 0.0 0.0-0.1 10^3/uL Immature Granulocyte # (Auto) 0.0 0.0-0.1 10^3/uL Sodium Level 137 135-145 MMOL/L Potassium Level 4.8 3.6-5.0 MMOL/L Chloride Level 102 98-107 MMOL/L Carbon Dioxide Level 25 21-32 MMOL/L Anion Gap 10 5-14 MMOL/L Blood Urea Nitrogen 18 7-18 MG/DL Creatinine 0.82 0.60-1.30 MG/DL Estimat Glomerular Filtration Rate 71 BUN/Creatinine Ratio 22 Glucose Level 124 H 70-105 MG/DL Lactic Acid Level 0.60 0.50-2.00 MMOL/L Calcium Level 9.0 8.5-10.1 MG/DL Corrected Calcium 9.5 8.5-10.1 MG/DL Total Bilirubin 0.3 0.1-1.0 MG/DL Aspartate Amino Transf (AST/SGOT) 44 H 5-34 U/L Alanine Aminotransferase (ALT/SGPT) 36 0-55 U/L Alkaline Phosphatase 106 40-136 U/L Troponin I < 0.028 <0.028 NG/ML C-Reactive Protein High Sensitivity 1.44 H 0.00-0.50 MG/DL B-Type Natriuretic Peptide 421.9 H <100.0 PG/ML Total Protein 8.5 H 6.4-8.2 GM/DL Albumin 3.4 3.2-4.5 GM/DL Procalcitonin 0.03 <0.10 NG/ML Influenza Type A (RT-PCR) Not Detected Not Detecte Influenza Type B (RT-PCR) Not Detected Not Detecte SARS-CoV-2 RNA (RT-PCR) Not Detected Not Detecte Prothrombin Time 13.5 12.2-14.7 SEC INR Comment 1.0 0.8-1.4 Activated Partial Thromboplast Time 25 24-35 SEC D-Dimer 0.78 H 0.00-0.49 UG/ML My Orders Orders - DOT LORENZ Cbc With Automated Diff (10/11/21 08:20) Comprehensive Metabolic Panel (10/11/21 08:20) Blood Culture (10/11/21 08:20) Sputum Culture (10/11/21 08:20) Urinalysis (10/11/21 08:20) Urine Culture (10/11/21 08:20) Protime With Inr (10/11/21 08:20) Partial Thromboplastin Time (10/11/21 08:20) Chest 1 View, Ap/Pa Only (10/11/21 08:20) Ed Iv/Invasive Line Start (10/11/21 08:20) Ed Iv/Invasive Line Start (10/11/21 08:20) Ekg Tracing (10/11/21 08:20) Troponin I Mclennan (10/11/21 08:20) Vital Signs Adult Sepsis Patie Q15M (10/11/21 08:20) O2 (10/11/21 08:20) Remove Rings In Anticipation O (10/11/21 08:20) Lactic Acid Analyzer (10/11/21 08:20) Influenza A And B By Pcr (10/11/21 08:20) Ns Iv 1000 Ml (Sodium Chloride 0.9%) (10/11/21 08:30) Ceftriaxone 1 Gm Pre-Mix (Rocephin 1 Gm (10/11/21 08:30) Azithromycin Injection (Zithromax Inject (10/11/21 08:30) Covid 19 Inhouse Test (10/11/21 08:20) Bnp Mya (10/11/21 08:20) Hs C Reactive Protein (10/11/21 08:20) Procalcitonin (Pct) (10/11/21 08:20) Fibrin Degradation Products (10/11/21 08:20) Arterial Blood Gas (10/11/21 08:36) Ct Angio Chest W (10/11/21 09:31) Iohexol Injection (Omnipaque 350 Mg/Ml 1 (10/11/21 09:45) Received Contrast (Hold Metformin- Contr (10/11/21 09:45) Sodium Chloride Flush (Catheter Flush Sy (10/11/21 09:45) Ns (Ivpb) (Sodium Chloride 0.9% Ivpb Bag (10/11/21 09:45) Methylprednisolone Sod Succ (Solu-Medrol (10/11/21 09:45) Catheter(Urinary) Insert & Ass 03,15 (10/11/21 09:55) Lactated Ringers (Lr 1000 Ml Iv Solution (10/11/21 11:00) Medications Given in ED Current Medications Medications Dose Ordered Sig/Trevon Route Start Time Stop Time Status Last Admin Dose Admin Azithromycin 500 mg/Sodium Chloride 255 ml @ 250 mls/hr ONCE ONCE IV 10/11/21 08:30 10/11/21 09:31 DC 10/11/21 09:31 250 MLS/HR Ceftriaxone Sodium/Dextrose 50 ml @ 100 mls/hr ONCE ONCE IV 10/11/21 08:30 10/11/21 08:59 DC 10/11/21 08:39 100 MLS/HR Iohexol 100 ml ONCE ONCE IV 10/11/21 09:45 10/11/21 09:46 DC 10/11/21 10:13 72 ML Methylprednisolone Sodium Succinate 125 mg ONCE ONCE IVP 10/11/21 09:45 10/11/21 09:46 DC 10/11/21 10:01 125 MG Sodium Chloride 10 ml NEEDED PRN IV 10/11/21 09:45 10/11/21 10:14 10 ML Sodium Chloride 100 ml ONCE ONCE IV 10/11/21 09:45 10/11/21 09:46 DC 10/11/21 10:14 80 ML Vital Signs/I&O 10/11/21 10/11/21 10/11/21 08:12 08:22 09:05 Temp 35.2 Pulse 71 62 Resp 16 28 B/P (MAP) Pulse Ox 99 94 O2 Delivery Nasal Cannula O2 Flow Rate 2.00 4.00 28.00 Capillary Refill : Progress Note : Time: 10:26 Progress Note Patient appears to be having a COPD exacerbation. Solu-Medrol was given. BiPAP was initiated for her CO2 retention. Departure Communication (Admissions) Time/Spoke to Admitting Phy: 11:00 Discussed the case with Dr. Lentz who agrees with cardiac stepdown BiPAP steroids and no antibiotics. She would like consultation with cardiology. She will do queued orders. Time/Spoke to Consulting Phy: 11:01 Discussed the case with Dr. Forde who agrees to consult on the case Impression Primary Impression: Acute respiratory failure with hypercapnia Additional Impression: COPD exacerbation Disposition: ADMITTED INPATIENT Condition: Stable Admissions Decision to Admit Reason: Admit from ER (General) Decision to Admit/Date: Oct 11, 2021 Time/Decision to Admit Time: 11:00 Departure-Patient Inst. Referrals: ELZA FERGUSON DO (PCP) Primary Care Physician [facility] (Family) Primary Care Physician DOT LORENZ Oct 11, 2021 08:23
[2021-10-11] MEDS ORDERED: cefTRIAXone 1 GM PRE-MIX 50 ML IV ONE (08:30)
[2021-10-11] MEDS ORDERED: AZITHROMYCIN INJECTION 500 MG in NS (IVPB) 250 ML IV ONE (08:30)
[2021-10-11] MEDS ORDERED: NS IV 1000 ML 1,000 ML IV SCH (08:30)
[2021-10-11 08:35] LABS: BASOPHILS % (AUTO) 1 % (0-10); EOSINOPHILS # (AUTO) 0.1 10^3/uL (0.0-0.3); EOSINOPHILS % (AUTO) 2 % (0-10); HEMATOCRIT 38 % (35-52); HEMOGLOBIN 11.8 g/dL (11.5-16.0); LYMPHOCYTES # (AUTO) 1.3 10^3/uL (1.0-4.0); LYMPHOCYTES % (AUTO) 20 % (12-44); MEAN CORPUSCULAR HEMOGLOBIN 31 pg (25-34); MEAN CORPUSCULAR HGB CONC 31 g/dL (32-36); MEAN CORPUSCULAR VOLUME 100 fL (80-99); MEAN PLATELET VOLUME 10.3 fL (9.0-12.2); MONOCYTES # (AUTO) 0.4 10^3/uL (0.0-1.0); MONOCYTES % (AUTO) 7 % (0-12); NEUTROPHILS # (AUTO) 4.3 10^3/uL (1.8-7.8); NEUTROPHILS % (AUTO) 70 % (42-75); PLATELET COUNT 154 10^3/uL (130-400); WHITE BLOOD COUNT 6.2 10^3/uL (4.3-11.0)
[2021-10-11 08:39] LABS: ABG BASE EXCESS 4.7 MMOL/L (-2.5-2.5); ABG OXYGEN SATURATION 99 % (94-100); ABG PCO2 59 MMHG (35-45); ABG PO2 133 MMHG (79-93); ABG TCO2 32.7 MMOL/L (21.0-31.0)
[2021-10-11 08:41] LABS: ABG PH 7.32 (7.37-7.43); ALLENS TEST POSITIVE; INSPIRED O2 2 L; VENTILATOR NO
[2021-10-11 08:42] LABS: PATIENT TEMP 35.2
[2021-10-11 08:44] LABS: ALBUMIN 3.4 GM/DL (3.2-4.5); CHLORIDE 102 MMOL/L (98-107); POTASSIUM 4.8 MMOL/L (3.6-5.0); SODIUM 137 MMOL/L (135-145)
[2021-10-11 08:46] LABS: GLUCOSE 124 MG/DL (70-105); TOTAL PROTEIN 8.5 GM/DL (6.4-8.2)
[2021-10-11 08:47] LABS: CARBON DIOXIDE 25 MMOL/L (21-32)
[2021-10-11 08:48] LABS: BILIRUBIN,TOTAL 0.3 MG/DL (0.1-1.0)
[2021-10-11 08:50] LABS: ALKALINE PHOSPHATASE 106 U/L (40-136); CREATININE SERUM 0.82 MG/DL (0.60-1.30); GFR ESTIMATED 71
[2021-10-11 08:51] LABS: BUN/CREATININE RATIO 22
[2021-10-11 08:53] LABS: ALANINE AMINOTRANSFERASE 36 U/L (0-55)
[2021-10-11 09:05] LABS: FIBRIN DEGRADATION PRODUCTS 0.78 UG/ML (0.00-0.49); PROTHROMBIN TIME PATIENT 13.5 SEC (12.2-14.7)
[2021-10-11] MEDS ORDERED: IOHEXOL 350 MG/ML 100 ML (OMNIPAQUE 350) VIAL IV ONE (09:45)
[2021-10-11] MEDS ORDERED: HOLD METFORMIN - RECEIVED CONTRAST 20 ML VIAL IV SCH (09:45)
[2021-10-11] MEDS ORDERED: methylPREDNISolone 125 MG (Solu-MEDROL) VIAL IVP ONE (09:45)
[2021-10-11] MEDS ORDERED: CATHETER FLUSH 10 ML SYR IV PRN (09:45)
[2021-10-11] MEDS ORDERED: NS 100 ML (IVPB) BAG IV ONE (09:45)
--- NOTE | 2021-10-11 09:46 | Diagnostic Imaging Report ---
INDICATION: Shortness of breath COMPARISON: 07/16/2021 FINDINGS: Single view of the chest demonstrates stable cardiac enlargement. Lungs are otherwise clear. There is no pneumothorax or effusion. Osseous structures are stable. IMPRESSION: Cardiac enlargement without pulmonary edema or acute infiltrate. Dictated by: Dictated on workstation # [id number]
--- NOTE | 2021-10-11 10:40 | Diagnostic Imaging Report ---
PROCEDURE: CT angiography of the chest with contrast. TECHNIQUE: Multiple contiguous axial images were obtained through the chest after uneventful bolus administration of intravenous contrast. 3D reconstructed CTA MIP acquisitions were also performed. Auto Exposure Controls were utilized during the CT exam to meet ALARA standards for radiation dose reduction. INDICATION: Shortness of air. COMPARISON: Chest radiograph 10/11/2021. FINDINGS: No pulmonary artery filling defects. Cardiomegaly. Normal caliber thoracic aorta. No pericardial effusion. Lungs are clear. No pleural effusion or pneumothorax. Cholecystectomy. No acute findings in the visualized upper abdomen. Multiple compression fractures in the thoracic spine are age indeterminate. These include approximately 20% height loss at T3, 30% height loss of T4, 20% height loss at T6, 50% height loss at T9 and 50% height loss of T11. IMPRESSION: 1. No pulmonary emboli. 2. No acute CT findings in the chest. 3. Cardiomegaly. 4. Multiple compression fractures in the thoracic spine are age indeterminate. This could be better evaluated with MRI if clinically warranted. Dictated by: Dictated on workstation # [id number]
[2021-10-11] MEDS ORDERED: LACTATED RINGERS 1,000 ML IV ONE (11:00)
--- NOTE | 2021-10-11 11:08 | History & Physical-Hospitalist ---
History of Present Illness HPI/Chief Complaint CC: SOB HPI: 80 yr old WF with a decline in function since her right hip fracture in June. Requiring a [facility] stay then went to live with her granddaughter. She presented with SOB and was found to have elevated BNP and evidence of exacerbation of COPD. She is currently on BiPAP and will be placed in cardiac step down unit. Dr. Forde will be consulted. Source: family Exam Limitations: clinical condition Date Seen 10/11/21 Time Seen by a Provider: 11:15 Attending Physician PCP Jae Vences V DO Referring Physician Date of Admission Home Medications & Allergies Home Medications Reviewed patient Home Medication Reconciliation performed by pharmacy medication reconciliations heat treatment technician and/or nursing. Patients Allergies have been reviewed. Allergies Allergies Coded Allergies cortisone (Verified Allergy, Unknown, 01/30/07) diphenhydramine (Verified Allergy, Unknown, 01/30/07) penicillin G (Verified Allergy, Unknown, 07/12/21) The patient is unaware that she has a penicillin allergy. She does not remember ever taking it and if she did what the reaction was. It has not been recently. Past Csowqwx-Fziacq-Jlaekg Hx Patient Social History Marrital Status: single Employed/Student: retired Tobacco Use?: No Smoking Status: Former Smoker Use of E-Cig and/or Vaping dev: No Substance use?: No Alcohol Use?: No Pt feels they are or have been: No Immunizations Up To Date Date of Influenza Vaccine: Apr 22, 2020 Tetanus Booster (TDap): Unknown PED Vaccines UTD: Yes Date of Pneumonia Vaccine: Mar 23, 2016 Seasonal Allergies Seasonal Allergies: Yes Current Status status: No Advance Directives: No Communicates: Verbally Primary Language: Libyan Preferred Spoken Language: Libyan Is interpretation needed?: No Past Medical History Surgeries: Section, Gallbladder, Hysterectomy, Oophorectomy, Or thopedic, Tonsillectomy Asthma, COPD Cardiomyopathy, Hypertension Sexually Transmitted Disease: No UTI-Chronic Gastroesophageal Reflux Arthritis Blood Disorders: Yes (ANEMIA) Adverse Reaction/Blood Tranf: No PMHx: HTN CHF SurgHx: Cholecystectomy C section Hysterectomy Breast biopsy Family Medical History No Pertinent Family Hx, Cancer Review of Systems Constitutional: see HPI, malaise, weakness EENTM: no symptoms reported Respiratory: dyspnea on exertion, short of breath Cardiovascular: no symptoms reported Gastrointestinal: no symptoms reported Genitourinary: no symptoms reported Musculoskeletal: no symptoms reported Skin: no symptoms reported Psychiatric/Neurological: No Symptoms Reported All Other Systems Reviewed Negative Unless Noted: Yes Physical Exam Physical Exam Vital Signs Vital Signs - First Documented 10/11/21 10/11/21 10/11/21 10/11/21 08:05 08:12 14:10 14:33 Temp 35.2 Pulse 71 Resp 16 B/P (MAP) 172/80 Pulse Ox 99 O2 Delivery Nasal Cannula O2 Flow Rate 2.00 FiO2 28 Capillary Refill : Height, Weight, BMI Height: 5'4.00" Weight: 188lbs. 0.0oz. [id number]; 30.00 BMI Method:Stated General Appearance: Anxious, Chronically ill, Mild Distress, Other (Placed on BiPAP) Eyes: Right Eye Normal Inspection, Right Eye PERRL HEENT: PERRL/EOMI, Normal ENT Inspection, Pharynx Normal, Moist Mucous Membranes Neck: Full Range of Motion, Normal Inspection, Non Tender Respiratory: Chest Non Tender, No Respiratory Distress, Accessory Muscle Use, Decreased Breath Sounds Cardiovascular: Regular Rate, Rhythm, No Edema, No Gallop, No JVD, No Murmur, Normal Peripheral Pulses Gastrointestinal: Normal Bowel Sounds, No Organomegaly, No Pulsatile Mass, Non Tender, Soft Back: Normal Inspection, No CVA Tenderness, No Vertebral Tenderness Extremity: Normal Capillary Refill, Normal Inspection, Normal Range of Motion, Non Tender, No Calf Tenderness, No Pedal Edema Neurologic/Psychiatric: Alert, Oriented x3, No Motor/Sensory Deficits, Normal Mood/Affect, Disoriented Skin: Normal Color, Warm/Dry Lymphatic: No Adenopathy Results Results/Procedures Labs Laboratory Tests 10/11/21 08:20 Patient resulted labs reviewed. Assessment/Plan Admission Diagnosis Assessment: Acute hypoxic respiratory failure with hypercapnia BiPAP dependent COPD with exacerbation without evidence of pneumonia or sepsis Advanced age with severe debility Exacerbation of congestive heart failure Plan: Dr. Forde consult Steroids Lasix Admission Status: Inpatient Order (span 2 midnights) Reason for Inpatient Admission: CHF and COPD exacerbation Diagnosis/Problems Diagnosis/Problems (1) Acute on chronic systolic heart failure (2) COPD exacerbation (3) Acute respiratory failure with hypercapnia Status: Acute MAE LENTZ DO Oct 11, 2021 11:08
[2021-10-11 11:28] LABS: BILIRUBIN,URINE NEGATIVE (NEGATIVE); CLARITY,URINE CLEAR; COLOR,URINE YELLOW; GLUCOSE, URINE (UA) NEGATIVE (NEGATIVE); KETONES,URINE NEGATIVE (NEGATIVE); LEUKOCYTE ESTERASE ,URINE NEGATIVE (NEGATIVE); NITRITE,URINE NEGATIVE (NEGATIVE); PH,URINE 6.5 (5-9); PROTEIN,URINE 1+ (NEGATIVE)
[2021-10-11 11:53] LABS: RBC,URINE 0-2 /HPF
[2021-10-11 11:54] LABS: BACTERIA,URINE NEGATIVE /HPF
[2021-10-11] MEDS ORDERED: BISACODYL 10 MG SUPP (DULCOLAX) PR PRN (13:45)
[2021-10-11] MEDS ORDERED: CALCIUM CARBONATE 500 MG (TUMS) TAB.CHEW PO PRN (13:45)
[2021-10-11] MEDS ORDERED: morphine INJ 4 MG/ML 1 ML (VIAL/SYRINGE) IV PRN (13:45)
[2021-10-11] MEDS ORDERED: PATIENT MAY USE OWN MEDS, ALL PO SCH (13:45)
[2021-10-11] MEDS ORDERED: MELATONIN 3 MG TABLET PO PRN (13:45)
[2021-10-11] MEDS ORDERED: LACTULOSE SYRUP 10GM/15ML (ENULOSE) 30ML UDC PO PRN (13:45)
[2021-10-11] MEDS ORDERED: polyethylene glycoL POWDER 17 GM (MIRALAX) PACK PO PRN (13:45)
[2021-10-11] MEDS ORDERED: ONDANSETRON 4 MG (ZOFRAN) ORAL DISSOLVE TAB PO PRN (13:45)
[2021-10-11] MEDS ORDERED: ACETAMINOPHEN 325 MG TABLET PO PRN (13:45)
[2021-10-11] MEDS ORDERED: ONDANSETRON 4 MG/2 ML (SDV) Z0FRAN IV PRN (13:45)
[2021-10-11] MEDS ORDERED: MILK OF MAGNESIA 400 MG/5 ML 30 ML UDC PO PRN (13:45)
[2021-10-11] MEDS ORDERED: ANTACID SUSP 30 ML UDC (MYLANTA) PO PRN (13:45)
[2021-10-11] MEDS ORDERED: RT-ALBUTEROL SULF 2.5 MG/3 ML PRE-MIX VIAL INH PRN (15:30)
[2021-10-11] MEDS ORDERED: LISI40TA9 PO (15:42)
[2021-10-11] MEDS ORDERED: FURO20TA4 PO (15:42)
[2021-10-11] MEDS ORDERED: MONT-40 PO (15:42)
[2021-10-11] MEDS ORDERED: MELA5TAB14 PO (15:42)
[2021-10-11] MEDS ORDERED: PARO40TA3 PO (15:42)
[2021-10-11] MEDS ORDERED: CETI10TA17 PO (15:42)
[2021-10-11] MEDS ORDERED: METO50TA7 PO (15:42)
[2021-10-11] MEDS ORDERED: MTC10T PO (15:42)
[2021-10-11] MEDS ORDERED: TRAZ-227 PO (15:42)
[2021-10-11] MEDS ORDERED: ACET-2267 PO (15:42)
[2021-10-11] MEDS ORDERED: ATOR20TA66 PO (15:42)
[2021-10-11] MEDS ORDERED: ASPI-1238 PO (15:42)
[2021-10-11] MEDS: FUROSEMIDE 40 MG/4 ML INJ (LASIX) IVP SCH (17:23)
[2021-10-11] MEDS: methylPREDNISolone 125 MG (Solu-MEDROL) VIAL IVP SCH ×2 (17:23→23:48)
[2021-10-11] MEDS: ENOXAPARIN 40 MG/0.4 ML (LOVENOX) SYR SC SCH (17:24)
[2021-10-11] MEDS ORDERED: ACETAMINOPHEN 500 MG TAB (TYLENOL) PO PRN (20:30)
[2021-10-11] MEDS ORDERED: cloNIDine 0.1 MG (CATAPRES) TAB PO PRN (20:45)
[2021-10-11] MEDS: METOCLOPRAMIDE 10 MG (REGLAN) TAB PO SCH (21:00)
[2021-10-11] MEDS: MONTELUKAST 10 MG (SINGULAIR) TAB PO SCH (21:00)
[2021-10-11] MEDS: traZODone 100 MG (DESYREL) TAB PO SCH (21:00)
[2021-10-11] MEDS ORDERED: NON-FORMULARY MEDICATION 1 EA EA (Paroxetine HCl 40 MG) PO SCH (21:00)
[2021-10-11] MEDS ORDERED: NON-FORMULARY MEDICATION 1 EA EA (Melatonin 5 MG) PO SCH (21:00)
[2021-10-11] MEDS: RT-ALBUTEROL/IPRATROPIUM 3 ML (DUONEB) VIAL INH SCH (22:50)
[2021-10-11] MEDS: DOCUSATE SODIUM 100 MG (COLACE) CAP PO SCH (23:49)
[2021-10-11] MEDS: SENNOSIDES 8.6 MG (SENOKOT) TAB PO SCH (23:50)
[2021-10-12] VITALS (9 sets, daily range): BP systolic 90–150; BP diastolic 51–99
[2021-10-12] MEDS: RT-ALBUTEROL/IPRATROPIUM 3 ML (DUONEB) VIAL INH SCH ×6 (02:21→22:50)
[2021-10-12 05:32] LABS: BASOPHILS % (AUTO) 0 % (0-10); EOSINOPHILS % (AUTO) 0 % (0-10); HEMATOCRIT 36 % (35-52); HEMOGLOBIN 11.4 g/dL (11.5-16.0); LYMPHOCYTES # (AUTO) 0.4 10^3/uL (1.0-4.0); LYMPHOCYTES % (AUTO) 7 % (12-44); MEAN CORPUSCULAR HEMOGLOBIN 31 pg (25-34); MEAN CORPUSCULAR HGB CONC 32 g/dL (32-36); MEAN CORPUSCULAR VOLUME 98 fL (80-99); MEAN PLATELET VOLUME 10.6 fL (9.0-12.2); MONOCYTES # (AUTO) 0.1 10^3/uL (0.0-1.0); MONOCYTES % (AUTO) 1 % (0-12); NEUTROPHILS # (AUTO) 5.6 10^3/uL (1.8-7.8); NEUTROPHILS % (AUTO) 92 % (42-75); PLATELET COUNT 158 10^3/uL (130-400); WHITE BLOOD COUNT 6.1 10^3/uL (4.3-11.0)
--- NOTE | 2021-10-12 05:32 | Progress Note - Hospitalist ---
Subjective HPI/CC On Admission Date Seen by Provider: Oct 12, 2021 Time Seen by Provider: 09:32 CC: SOB HPI: 80 yr old WF with a decline in function since her right hip fracture in June. Requiring a [facility] stay then went to live with her granddaughter. She presented with SOB and was found to have elevated BNP and evidence of exacerbation of COPD. She is currently on BiPAP and will be placed in cardiac step down unit. Dr. Forde will be consulted. Subjective/Events-last exam Pt is doing a lot better Trying to wean down off BiPAP Eating and drinking fairly well Restarted all home meds Cardiology appreciated Review of Systems General: Fatigue, Malaise Pulmonary: Dyspnea Focused Exam Lactate Level 10/11/21 08:20: Lactic Acid Level 0.60 Objective Exam Vital Signs Vital Signs Date Time Temp Pulse Resp B/P (MAP) Pulse Ox O2 Delivery O2 Flow Rate FiO2 10/13/21 02:38 64 28 98 28.00 10/13/21 00:00 36.1 99/58 (72) NIV Bilevel 10/12/21 09:00 28 Capillary Refill : Less Than 3 Seconds General Appearance: No Apparent Distress, WD/WN, Chronically ill Respiratory: Lungs Clear, Normal Breath Sounds, Decreased Breath Sounds Cardiovascular: Regular Rate, Rhythm Neurologic/Psychiatric: Alert, Oriented x3 Results/Procedures Lab Laboratory Tests 10/12/21 05:03 Patient resulted labs reviewed. Assessment/Plan Assessment and Plan Assess & Plan/Chief Complaint Assessment: Acute hypoxic respiratory failure with hypercapnia BiPAP dependent COPD with exacerbation without evidence of pneumonia or sepsis Advanced age with severe debility Exacerbation of congestive heart failure Plan: Dr. Forde consult Steroids Lasix 10/12/2021: Transfer to fourth floor Wean BiPAP Diagnosis/Problems Diagnosis/Problems (1) Acute on chronic systolic heart failure (2) COPD exacerbation (3) Acute respiratory failure with hypercapnia Status: Acute MAE LENTZ DO Oct 12, 2021 05:32
[2021-10-12 05:45] LABS: ALBUMIN 3.4 GM/DL (3.2-4.5)
[2021-10-12 05:47] LABS: CALCIUM 8.8 MG/DL (8.5-10.1)
[2021-10-12 05:48] LABS: TOTAL PROTEIN 8.1 GM/DL (6.4-8.2)
[2021-10-12 05:50] LABS: BILIRUBIN,TOTAL 0.2 MG/DL (0.1-1.0)
[2021-10-12 05:51] LABS: CREATININE SERUM 0.92 MG/DL (0.60-1.30)
[2021-10-12 05:54] LABS: MAGNESIUM 2.1 MG/DL (1.6-2.4)
[2021-10-12] MEDS: methylPREDNISolone 125 MG (Solu-MEDROL) VIAL IVP SCH ×3 (06:40→17:17)
[2021-10-12] MEDS: FUROSEMIDE 40 MG/4 ML INJ (LASIX) IVP SCH ×2 (06:40→17:17)
[2021-10-12] MEDS: meTOproloL SUCCINATE 50 MG (TOPROL XL) TAB PO SCH (08:50)
[2021-10-12] MEDS: DOCUSATE SODIUM 100 MG (COLACE) CAP PO SCH ×2 (08:50→21:26)
[2021-10-12] MEDS: ASPIRIN E.C. 81 MG (ECOTRIN) TAB PO SCH (08:50)
[2021-10-12] MEDS: METOCLOPRAMIDE 10 MG (REGLAN) TAB PO SCH ×2 (08:50→21:25)
[2021-10-12] MEDS: SENNOSIDES 8.6 MG (SENOKOT) TAB PO SCH ×2 (08:50→21:26)
[2021-10-12] MEDS: lisINopril 40 MG (PRINIVIL) TABLET PO SCH (08:50)
[2021-10-12] MEDS ORDERED: FUROSEMIDE 20 MG (LASIX) TAB PO SCH (09:00)
--- NOTE | 2021-10-12 09:35 | Consultation-Cardiology ---
HPI-Cardiology Cardiology Consultation Date of Consultation 10/12/21 Date of Admission Time Seen by Provider: 11:15 Indication: dyspnea, elevated BNP HPI Patient is an 80 y/o female with history of CHF, COPD, HTN. Presented to the ER with complaints of increased dyspnea over the past 3 days. Denies any chest pain or tightness, palpitations, lightheadedness or dizziness. Noted to have mildly elevated BNP Home Medications & Allergies Allergies: Coded Allergies: cortisone (Verified Allergy, Unknown, 01/30/07) diphenhydramine (Verified Allergy, Unknown, 01/30/07) penicillin G (Verified Allergy, Unknown, 07/12/21) The patient is unaware that she has a penicillin allergy. She does not remember ever taking it and if she did what the reaction was. It has not been recently. Home Medication List Reviewed: Yes XMM-Vrjxub-Mfypqb Hx Patient Social History Marital Status: single Employed/Student: retired Smoking Status: Former Smoker Type Used: Cigarettes 2nd Hand Smoke Exposure: Yes Recent Hopitalizations: No Have you traveled recently?: No Alcohol Use?: No Immunizations Up To Date Tetanus Booster (TDap): Less than 5yrs Date of Pneumonia Vaccine: Mar 23, 2016 Date of Influenza Vaccine: Apr 22, 2020 Past Medical History nonobstructive CAD CHF COPD Family Medical History Significant Family History: No Pertinent Family Hx, Cancer Family Medical Hx Noncontributory Review of Systems-General Review of Systems Constitutional: see HPI, malaise, weakness EENTM: no symptoms reported Respiratory: dyspnea on exertion, short of breath Cardiovascular: no symptoms reported Gastrointestinal: no symptoms reported Genitourinary: no symptoms reported Musculoskeletal: no symptoms reported Skin: no symptoms reported Psychiatric/Neurological: No Symptoms Reported All Other Systems Reviewed Negative Unless Noted: Yes Reviewed Test Results Reviewed Test Results Lab Laboratory Tests 10/11/21 11:20: Urine Color YELLOW, Urine Clarity CLEAR, Urine pH 6.5, Urine Specific [place] 1.020, Urine Protein 1+H, Urine Glucose (UA) NEGATIVE, Urine Ketones NEGATIVE, Urine Nitrite NEGATIVE, Urine Bilirubin NEGATIVE, Urine Urobilinogen 0.2, Urine Leukocyte Esterase NEGATIVE, Urine RBC (Auto) TRACE-IH, Urine RBC 0-2, Urine WBC NONE, Urine Crystals NONE, Urine Bacteria NEGATIVE, Urine Casts NONE, Urine Mucus SMALLH, Urine Culture Indicated CULTURE PENDING 10/12/21 05:03: White Blood Count 6.1, Red Blood Count 3.68L, Hemoglobin 11.4L, Hematocrit 36, Mean Corpuscular Volume 98, Mean Corpuscular Hemoglobin 31, Mean Corpuscular Hemoglobin Concent 32, Red Cell Distribution Width 13.6, Platelet Count 158, Me an Platelet Volume 10.6, Immature Granulocyte % (Auto) 0, Neutrophils (%) (Auto) 92H, Lymphocytes (%) (Auto) 7L, Monocytes (%) (Auto) 1, Eosinophils (%) (Auto) 0, Basophils (%) (Auto) 0, Neutrophils # (Auto) 5.6, Lymphocytes # (Auto) 0.4L, Monocytes # (Auto) 0.1, Eosinophils # (Auto) 0.0, Basophils # (Auto) 0.0, Immature Granulocyte # (Auto) 0.0, Sodium Level 135, Potassium Level 4.0, Chloride Level 100, Carbon Dioxide Level 23, Anion Gap 12, Blood Urea Nitrogen 28H, Creatinine 0.92, Estimat Glomerular Filtration Rate 62, BUN/Creatinine Ratio 30, Glucose Level 171H, Calcium Level 8.8, Corrected Calcium 9.3, Magnesium Level 2.1, Total Bilirubin 0.2, Aspartate Amino Transf (AST/SGOT) 21, Alanine Aminotransferase (ALT/SGPT) 30, Alkaline Phosphatase 99, Total Protein 8.1, Albumin 3.4 Microbiology 10/11/21 Blood Culture - Preliminary, Resulted ECG Impression ECG Initial ECG Rhythm: Normal Sinus, PAC Physical Exam Physical Exam Vital Signs Vital Signs - First Documented 10/11/21 10/11/21 10/11/21 10/11/21 08:05 08:12 14:10 14:33 Temp 35.2 Pulse 71 Resp 16 B/P (MAP) 172/80 Pulse Ox 99 O2 Delivery Nasal Cannula O2 Flow Rate 2.00 FiO2 28 Capillary Refill : Less Than 3 Seconds Height, Weight, BMI Height: 5'4.00" Weight: 188lbs. 0.0oz. 85.141145ts; 30.85 BMI Method:Stated General Appearance: Anxious, Chronically ill, Mild Distress, Other (Placed on BiPAP) Eyes: Right Eye Normal Inspection, Right Eye PERRL; Bilateral Eye EOMI HEENT: PERRL/EOMI, Normal ENT Inspection, Pharynx Normal, Moist Mucous Membranes Neck: Full Range of Motion, Normal Inspection, Non Tender Respiratory: Chest Non Tender, No Respiratory Distress, Accessory Muscle Use, Decreased Breath Sounds Cardiovascular: Regular Rate, Rhythm, No Edema, No Gallop, No JVD, No Murmur, Normal Peripheral Pulses Gastrointestinal: Normal Bowel Sounds, No Organomegaly, No Pulsatile Mass, Non Tender, Soft Back: Normal Inspection, No CVA Tenderness, No Vertebral Tenderness Extremity: Normal Capillary Refill, Normal Inspection, Normal Range of Motion, Non Tender, No Calf Tenderness, No Pedal Edema Neurologic/Psychiatric: Alert, Oriented x3, No Motor/Sensory Deficits, Normal Mood/Affect, Disoriented Skin: Normal Color, Warm/Dry Lymphatic: No Adenopathy A/P-Cardiology Admission Diagnosis AE COPD Acute on chronic CHF HTN HLP Assessment/Plan AE COPD, currently on BiPAP, management per medical services. Acute on Chronic systolic CHF due to nonischemic cardiomyopathy. Echo on 07/12/21: LVEF 40-45%, mild conc LVH, mild AI, PASP 20-25 mmHg, maintained on ESTRELLITA-I, beta amy. Continue to diurese and continue to monitor. Coronary artery disease, Cardiac catheterization done on September [address] Thomas showing tortuous coronary system with mild disease nonobstructive disease Chronic left bundle branch block Tobaccoism Hypertension, restarted on home blood pressure medication, continue to monitor. Hyperlipidemia, Hx of right hip fx in June 2021 History of elevated liver enzymes Anxiety Thank you for allowing us to participate in the management of Ms Su. This is Tashia Sommer PA-C, as a scribe for Dr. Thomas. Patient was seen and evaluated, I interviewed and examined the patient with Blanca power, discussed the management plan, agree with the current scribed note Patient is currently short of breath, on BiPAP, have acute exacerbation of COPD Has history of congestive heart failure with acute on chronic left ventricular systolic dysfunction, nonischemic cardiomyopathy We will continue with Lasix 40 mg IV twice daily and evaluate tolerance and response Patient is known to have mild to moderate coronary artery disease nonobstructive disease Has history of tobaccoism, hypertension hyperlipidemia. TASHIA AVILA Oct 12, 2021 09:35 ANA PAULA THOMAS MD Oct 12, 2021 12:43
[2021-10-12] MEDS: ENOXAPARIN 40 MG/0.4 ML (LOVENOX) SYR SC SCH (11:26)
--- NOTE | 2021-10-12 11:53 | Occupational Therapy Eval ---
OT Evaluation-General/PLF Medical Diagnosis Admission Date Oct 11, 2021 at 13:43 Medical Diagnosis: Acute hypoxic resp failure with hypercapnia Onset Date: Oct 11, 2021 Therapy Diagnosis Therapy Diagnosis: impaired adl status Height/Weight Height (Feet): 5 Height (Inches): 4.00 Weight (Pounds): 188 Weight (Ounces): 0.0 Precautions Precautions/Isolations: Fall Prevention, Standard Precautions Referral Physician: jazmyn Referral Reason: Evaluation/Treatment Medical History Pertinent Medical History: Arthritis, COPD, Heart Failure, HTN Additional Medical History Asthma Current History Pt presents with SOB. Found to have elevate BPN and COPD exacerbation. Per chart, pt has had a decline in function since L hip fx back in June 2021. Per patient she lives in a single story home with her granddaughter. She was indep with adls and granddaughter provides all IADLs. Pt uses a walker at baseline. Reviewed History: Yes Social History Home: Single Level Current Living Status: Other Family ADL-Prior Level of Function SCALE: Activities may be completed with or without assistive devices. 9-Mlocwmxska-nxwboqo completes the activity by him/herself with no assistance from a helper. 5-Set-up or Clean-up Assistance-helper sets up or cleans up; patient completes activity. [place] assists only prior to or following the activity. 4-Supervision or Touching Assistance-helper provides verbal cues and/or touching/steadying and/or contact guard assistance as patient completes activity. Assistance may be provided throughout the activity or intermittently. 3-Partial/Moderate Assistance-helper does LESS THAN HALF the effort. [place] lifts, holds or supports trunk or limbs, but provides less than half the effort. 2-Substantial/Maximal Assistance-helper does MORE THAN HALF the effort. [place] lifts or holds trunk or limbs and provides more than half the effort. 4-Ueuloijal-qijzyk does ALL the effort. Patient does none of the effort to complete the activity. Or, the assistance of 2 or more helpers is required for the patient to complete the activity. If activity was not attempted, code reason: 7-Patient Refused. 9-Not Applicable-not attempted and the patient did not perform the activity before the current illness, exacerbation or injury. 10-Not Attempted due to Environmental Limitations-(lack of equipment, weather restraints, etc.). 88-Not Attempted due to Medical Conditions or Safety Concerns. Self Care: Independent Functional Cognition: Unknown DME/Equipment: Bath Chair, Tub/Shower Drive Self: No OT Current Status Subjective Pt [place], agreeable to eval. Appearance Pt returned to supine in bed,all needs within reach. Mental Status/Objective Patient Orientation: Person Attachments: White Catheter, IV, Oxygen (4L), Telemetry Current Upper Extremity ROM Bilateral shoulder: ~3/4 AROM Elbow-distally: WNL Upper Extremity Strength debilitated, 2+/5 grossly ADL-Treatment On/Off Footwear (QC): 1 Toileting Hygiene (QC): 1 (white catheter) Other Treatments Supine<>sit: mod a to elevate trunk. Dependent to scoot hips towards EOB. Severe kyphotic/sacral sitting. Unable to correct posterior pelvic tilt. Due to poor posture in sitting, pt unable to reach feet to don/doff socks, thus dependent to complete. HR between 90's-110's. Pt currently on 4L oxygen, remains >96% throughout bed mobility. Pt declines attempt to stand, mod-max a to return to supine. Education OT Patient Education: Correct positioning, Progress toward Goal/Update tx plan, Purpose of tx/functional activities, Safety issues, Transfer techniques Teaching Recipient: Patient Teaching Methods: Discussion Response to Teaching: Reinforcement Needed OT Correction Goals Multiple Effect Evaporator Operator Goals Time Frame: Oct 22, 2021 Eating (QC): 6 Oral Hygiene (QC): 5 Toileting Hygiene (QC): 4 Shower/Bathe Self (QC): 4 Upper Body Dressing (QC): 4 Lower Body Dressing (QC): 4 On/Off Footwear (QC): 3 1=Demonstrate adherence to instructed precautions during ADL tasks. 2=Patient will verbalize/demonstrate understanding of assistive devices/modifications for ADL. 3=Patient will improve strength/tolerance for activity to enable patient to perform ADL's. OT Education/Plan Problem List/Assessment Assessment: Decreased Activ Tolerance, Decreased Safety Aware, Decreased UE Strength, Dependent Transfers, Impaired Bed Mobility, Impaired Cognition, Impaired Funct Balance, Impaired Self-Care Skills, Restricted Funct UE ROM Discharge Recommendations Plan/Recommendations: Continue POC Treatment Plan/Plan of Care Treatment,Training & Education: Yes Patient would benefit from OT for education, treatment and training to promote independence in ADL's, mobility, safety and/or upper extremity function for ADL's. Plan of Care: ADL Retraining, Functional Mobility, UE Funct Exercise/Act Treatment Duration: Oct 22, 2021 Frequency: 3 times per week (3-5x/week) Estimated Hrs Per Day: .25 hour per day Time/GCodes Start Time: 11:23 Stop Time: 11:38 Total Time Billed (hr/min): 15 Billed Treatment Time 1 visit Kathia Coleman OT Oct 12, 2021 11:53
--- NOTE | 2021-10-12 14:19 | Physical Therapy Evaluation ---
PT Evaluation-General Medical Diagnosis Admission Date Oct 11, 2021 at 13:43 Medical Diagnosis: Acute hypoxic resp failure with hypercapnia Onset Date: Oct 11, 2021 Therapy Diagnosis Therapy Diagnosis: weakness; immobility Height/Weight Height (Feet): 5 Height (Inches): 4.00 Weight (Pounds): 188 Weight (Ounces): 0.0 Precautions Precautions/Isolations: Fall Prevention, Standard Precautions Weight Bear Status Full Weight Bearing Full Weight Bearing Referral Physician: jazmyn Reason for Referral: Evaluation/Treatment Medical History Pertinent Medical History: Arthritis, COPD, Heart Failure, HTN Current History Pt admitted with acute hypoxic respiratory failure with hypercapnia. Reviewed History: Yes Social History Home: Single Level Current Living Status: Other Family Prior Prior Level of Function SCALE: Activities may be completed with or without assistive devices. 1-Ssvpbyjtnt-fblpcjz completes the activity by him/herself with no assistance from a helper. 5-Set-up or Clean-up Assistance-helper sets up or cleans up; patient completes activity. [place] assists only prior to or following the activity. 4-Supervision or Touching Assistance-helper provides verbal cues and/or touching/steadying and/or contact guard assistance as patient completes activity. Assistance may be provided throughout the activity or intermittently. 3-Partial/Moderate Assistance-helper does LESS THAN HALF the effort. [place] lifts, holds or supports trunk or limbs, but provides less than half the effort. 2-Substantial/Maximal Assistance-helper does MORE THAN HALF the effort. [place] lifts or holds trunk or limbs and provides more than half the effort. 9-Jdxaakjaw-qvhtsw does ALL the effort. Patient does none of the effort to complete the activity. Or, the assistance of 2 or more helpers is required for the patient to complete the activity. If activity was not attempted, code reason: 7-Patient Refused. 9-Not Applicable-not attempted and the patient did not perform the activity before the current illness, exacerbation or injury. 10-Not Attempted due to Environmental Limitations-(lack of equipment, weather restraints, etc.). 88-Not Attempted due to Medical Conditions or Safety Concerns. Bed Mobility: 6 Transfers (B,C,W/C): 6 Gait: 6 Stairs: 4 Indoor Mobility (Ambulation): Not [place] Stairs: Not [place] Prior Devices Use: Walker Prior Device Use: 4 wheel walker PT Evaluation-Current Subjective Pt reports she feels weak but her breathing is doing better. She is very agreeable to participating with therapy. Pain Numeric Pain Scale: 3 Location: Right Location Body Site: Abdomen Objective Patient Orientation: Person, Place, Situation Attachments: SCD's, Oxygen, [place] Catheter ROM/Strength ROM Upper Extremities WFL ROM Lower Extremities WFL Strength Upper Extremities Gross 4/5 throughout Strength Lower Extremities Hip flexion 3/5 (B), Hip extension 4/5, knee flexion/ext 4/5, ankle DF 4/5 Sensory Vision: Functional Hearing: Functional Sensation Right Upper Extremit: Intact Sensation Left Upper Extremity: Intact Sensation Right Lower Extremit: Intact Sensation Left Lower Extremity: Intact Transfers Roll Left to Right (QC): 4 Sit to Lying (QC): 3 Lying to Sitting/Side of Bed(Q: 4 Sit to Stand (QC): 4 Chair/Uun-iu-Zlaaa Xfer(QC): 4 Min Assist for LEs to transition sit to supine On the first trial of sit to stand she required Min Assist, on 2nd trial she was able to stand with CGA and verbal cues. Gait Does the Patient Walk?: Yes Mode of Locomotion: Walk Anticipated Mode of Locomotion: Walk Walk 10 feet (QC): 4 Walk 50 ft with 2 Turns(QC): 88 Walk 150 ft (QC): 88 Distance: 10 Gait Assistive Device: FWW Comments/Gait Description Walked 10ft with FWW and Min Assist for balance. Balance Sitting Static: Good Sitting Dynamic: Good Standing Static: Poor Standing Dynamic: Poor Assessment/Needs Rehab Potential: Good PT Short Term Goals Short Term Goals Time Frame: Oct 13, 2021 Roll Left & Right: 6 Sit to lyin Lying to sitting on side of be: 6 Sit to stand: 4 Chair/wyb-fw-kqypn transfer: 4 Walk 50 feet with two turns: 4 PT Jail Goals Jail Goals PT Sampling Expert Goals Time Frame: Oct 17, 2021 Roll Left & Right (QC): 6 Sit to Lying (QC): 6 Lying-Sitting on Side/Bed(QC): 6 Sit to Stand (QC): 6 Chair/Rfg-qd-Cwfie Xfer(QC): 6 Walk 150 ft (QC): 6 PT Plan Problem List Problem List: Activity Tolerance, Balance, Gait, Transfer, Bed Mobility Treatment/Plan Treatment Plan: Continue Plan of Care Treatment Plan: Bed Mobility, Education, Functional Activity Josh, Functional Strength, Gait, Safety, Therapeutic Exercise Treatment Duration: Oct 17, 2021 Frequency: 11 times per week Estimated Hrs Per Day: .25 hour per day Patient and/or Family Agrees t: Yes Discharge Recommendations Barriers to Progress Chronic COPD Target Placement Possible ARU vs home with home with home health depending on her progress over the next several days. Time/GCodes Time In: 1350 Time Out: 1410 Total Billed Treatment Time: 20 Total Billed Treatment visit, duc moderate complexity 20minutes AMY RAIN PT Oct 12, 2021 14:19
[2021-10-12] MEDS: MONTELUKAST 10 MG (SINGULAIR) TAB PO SCH (21:25)
[2021-10-12] MEDS: PARoxetine 20 MG (PAXIL) TAB PO SCH (21:25)
[2021-10-12] MEDS: traZODone 100 MG (DESYREL) TAB PO SCH (21:25)
[2021-10-12] MEDS: MELATONIN 10 MG TABLET PO SCH (21:25)
[2021-10-13] VITALS (9 sets, daily range): BP systolic 99–166; BP diastolic 55–79
[2021-10-13] MEDS: RT-ALBUTEROL/IPRATROPIUM 3 ML (DUONEB) VIAL INH SCH ×6 (02:38→22:36)
[2021-10-13 05:11] LABS: BASOPHILS % (AUTO) 0 % (0-10); EOSINOPHILS % (AUTO) 0 % (0-10); HEMATOCRIT 33 % (35-52); HEMOGLOBIN 10.6 g/dL (11.5-16.0); LYMPHOCYTES # (AUTO) 0.4 10^3/uL (1.0-4.0); LYMPHOCYTES % (AUTO) 5 % (12-44); MEAN CORPUSCULAR HEMOGLOBIN 32 pg (25-34); MEAN CORPUSCULAR HGB CONC 33 g/dL (32-36); MEAN CORPUSCULAR VOLUME 97 fL (80-99); MEAN PLATELET VOLUME 10.8 fL (9.0-12.2); MONOCYTES # (AUTO) 0.3 10^3/uL (0.0-1.0); MONOCYTES % (AUTO) 3 % (0-12); NEUTROPHILS # (AUTO) 7.7 10^3/uL (1.8-7.8); NEUTROPHILS % (AUTO) 92 % (42-75); PLATELET COUNT 153 10^3/uL (130-400); WHITE BLOOD COUNT 8.4 10^3/uL (4.3-11.0)
[2021-10-13 05:32] LABS: ALBUMIN 3.2 GM/DL (3.2-4.5)
[2021-10-13 05:33] LABS: CALCIUM 8.5 MG/DL (8.5-10.1)
[2021-10-13 05:34] LABS: BAND NEUTROPHILS 0 %; BASOPHILS % (MANUAL) 0 %; EOSINOPHILS % (MANUAL) 0 %; LYMPHOCYTES % (MANUAL) 2 %; MONOCYTES % (MANUAL) 1 %; NEUTROPHILS % (MANUAL) 97 %; RBC MORPH NORMAL; TOTAL PROTEIN 7.2 GM/DL (6.4-8.2)
[2021-10-13 05:36] LABS: BILIRUBIN,TOTAL 0.2 MG/DL (0.1-1.0)
[2021-10-13 05:38] LABS: CREATININE SERUM 1.5 MG/DL (0.60-1.30)
--- NOTE | 2021-10-13 06:04 | Progress Note - Hospitalist ---
Subjective HPI/CC On Admission Date Seen by Provider: Oct 13, 2021 Time Seen by Provider: 10:00 CC: SOB HPI: 80 yr old WF with a decline in function since her right hip fracture in June. Requiring a [facility] and Rehab stay then went to live with her granddaughter. She presented with SOB and was found to have elevated BNP and evidence of exacerbation of COPD. She is currently on BiPAP and will be placed in cardiac step down unit. Dr. Forde will be consulted. Subjective/Events-last exam Patient doing a lot better Off BiPAP No pain is reported PT and OT will be ordered Tolerating steroids and Lasix well Review of Systems General: Fatigue, Malaise Pulmonary: Dyspnea Focused Exam Lactate Level 10/11/21 08:20: Lactic Acid Level 0.60 Objective Exam Vital Signs Vital Signs Date Time Temp Pulse Resp B/P (MAP) Pulse Ox O2 Delivery O2 Flow Rate FiO2 10/14/21 03:56 35.8 70 19 160/86 (110) 98 Nasal Cannula 3.00 10/13/21 08:42 94 Capillary Refill : Less Than 3 Seconds General Appearance: No Apparent Distress, Chronically ill Respiratory: No Accessory Muscle Use, No Respiratory Distress, Decreased Breath Sounds Cardiovascular: Regular Rate, Rhythm Neurologic/Psychiatric: Alert, Oriented x3, Depressed Affect Results/Procedures Lab Laboratory Tests 10/13/21 05:00 Patient resulted labs reviewed. Assessment/Plan Assessment and Plan Assess & Plan/Chief Complaint Assessment: Acute hypoxic respiratory failure with hypercapnia BiPAP dependent COPD with exacerbation without evidence of pneumonia or sepsis Advanced age with severe debility Exacerbation of congestive heart failure Plan: Dr. Forde consult Steroids Lasix 10/12/2021: Transfer to fourth floor Wean BiPAP 10/13/2021: Transfer to fourth floor Continue Lasix and steroids Diagnosis/Problems Diagnosis/Problems (1) Acute on chronic systolic heart failure (2) COPD exacerbation (3) Acute respiratory failure with hypercapnia Status: Acute MAE LENTZ DO Oct 13, 2021 06:04
[2021-10-13] MEDS: FUROSEMIDE 40 MG/4 ML INJ (LASIX) IVP SCH ×2 (06:26→11:50)
[2021-10-13] MEDS: methylPREDNISolone 125 MG (Solu-MEDROL) VIAL IVP SCH ×2 (06:27)
--- NOTE | 2021-10-13 08:33 | Cardiology Progress Note ---
Subjective Date Seen by Provider: Oct 13, 2021 Time Seen by Provider: 08:29 Subjective/Events-last exam Patient was seen at bedside, laying down comfortably, feeling better today. Breathing better. Review of Systems General: No Chills, No Night Sweats; Fatigue; No Malaise, No Appetite, No Other HEENT: No Head Aches, No Visual Changes, No Eye Pain, No Ear Pain, No D ysphasia, No Sinus Congestion, No Post Nasal Drip, No Sore Throat, No Other Pulmonary: Dyspnea; No Cough, No Pleuritic Chest Pain, No Other Cardiovascular: No: Chest Pain, Palpitations, Orthopnea, Paroxysmal Noc. Dyspnea, Edema, Lt Headedness, Other Focused Exam Lactate Level 10/11/21 08:20: Lactic Acid Level 0.60 Objective-Cardiology Exam Last Set of Vital Signs Vital Signs 10/12/21 10/13/21 10/13/21 10/13/21 09:00 04:00 06:23 06:44 Temp 36.6 Pulse 83 Resp 17 B/P (MAP) 119/64 (82) Pulse Ox 98 O2 Delivery NIV Bilevel O2 Flow Rate 28.00 FiO2 28 I&O Intake and Output 10/12/21 23:59 Intake Total 1150 ml Output Total 1200 ml Balance -50 ml Intake Oral 1150 ml Output Urine Total 1200 ml General: Alert, Oriented X3, Cooperative HEENT: Atraumatic, PERRLA Neck: Supple, No JVD, No Thyromegaly Lungs: Normal Air Movement, Other (Bilateral rhonchi) Heart: Regular Rate, Normal S1, Normal S2, No Murmurs Abdomen: Normal Bowel Sounds, Soft, No Tenderness, No Hepatosplenomegaly, No Masses Extremities: No Clubbing, No Cyanosis, Normal Pulses, No Tenderness/Swelling, Other (Mild pedal edema) Skin: No Rashes, No Breakdown, No Significant Lesion Neuro: Normal Speech, Normal Tone, Sensation Intact Psych/Mental Status: Mental Status NL, Mood NL Results Lab Laboratory Tests 10/13/21 05:00 A/P-Cardiology Admission Diagnosis AE COPD Acute on chronic CHF HTN HLP Assessment/Plan AE COPD, improving, feeling better today. Management per medical service. Acute on Chronic systolic CHF due to nonischemic cardiomyopathy. Echo on 07/12/21: LVEF 40-45%, mild conc LVH, mild AI, PASP 20-25 mmHg, maintained on ESTRELLITA-I, beta amy. I stopped Lasix today due to deterioration in renal function. I will use Lasix 20 mg IV daily and evaluate tolerance and response Coronary artery disease, Cardiac catheterization done on September [address] Thomas showing tortuous coronary system with mild disease nonobstructive disease Chronic left bundle branch block Tobaccoism Hypertension, restarted on home blood pressure medication, continue to monitor. Hyperlipidemia, Hx of right hip fx in June 2021 History of elevated liver enzymes Anxiety ANA PAULA THOMAS MD Oct 13, 2021 08:33
[2021-10-13] MEDS: LORATADINE (CLARITIN) 10 MG TAB PO SCH (08:39)
[2021-10-13] MEDS: lisINopril 40 MG (PRINIVIL) TABLET PO SCH (08:39)
[2021-10-13] MEDS: DOCUSATE SODIUM 100 MG (COLACE) CAP PO SCH ×2 (08:40→20:36)
[2021-10-13] MEDS: ASPIRIN E.C. 81 MG (ECOTRIN) TAB PO SCH (08:40)
[2021-10-13] MEDS: METOCLOPRAMIDE 10 MG (REGLAN) TAB PO SCH ×2 (08:40→20:36)
[2021-10-13] MEDS: meTOproloL SUCCINATE 50 MG (TOPROL XL) TAB PO SCH (08:40)
[2021-10-13] MEDS: SENNOSIDES 8.6 MG (SENOKOT) TAB PO SCH ×2 (08:40→20:36)
--- NOTE | 2021-10-13 09:34 | Physical Therapy Daily Note ---
PT Daily Note-Current Subjective Patient was in bed upon entry. Patient had no new complaints Pain Location: No Pain Reported Mental Status Patient Orientation: Person, Place, Time, Situation Attachments: Oxygen, Tucker Catheter Transfers SCALE: Activities may be completed with or without assistive devices. 4-Rjwygfjntm-wpypant completes the activity by him/herself with no assistance from a helper. 5-Set-up or Clean-up Assistance-helper sets up or cleans up; patient completes activity. [place] assists only prior to or following the activity. 4-Supervision or Touching Assistance-helper provides verbal cues and/or touching/steadying and/or contact guard assistance as patient completes activity. Assistance may be provided throughout the activity or intermittently. 3-Partial/Moderate Assistance-helper does LESS THAN HALF the effort. [place] lifts, holds or supports trunk or limbs, but provides less than half the effort. 2-Substantial/Maximal Assistance-helper does MORE THAN HALF the effort. [place] lifts or holds trunk or limbs and provides more than half the effort. 8-Gtttiacjh-yornel does ALL the effort. Patient does none of the effort to complete the activity. Or, the assistance of 2 or more helpers is required for the patient to complete the activity. If activity was not attempted, code reason: 7-Patient Refused. 9-Not Applicable-not attempted and the patient did not perform the activity before the current illness, exacerbation or injury. 10-Not Attempted due to Environmental Limitations-(lack of equipment, weather restraints, etc.). 88-Not Attempted due to Medical Conditions or Safety Concerns. Lying to Sitting/Side of Bed(Q: 3 Sit to Stand (QC): 3 Weight Bearing Full Weight Bearing Full Weight Bearing Gait Training Does the Patient Walk?: Yes Distance: 150' Walk 10 feet (QC): 4 Walk 50 ft with 2 Turns(QC): 4 Walk 150 ft (QC): 4 Gait Assistive Device: FWW extended UE's with FWW use with VC's for body placement in FWW Wheelchair Training Does the Pt Use a Wheelchair?: No Type of Wheelchair: N/A Treatments ambulation Assessment Current Status: Fair Progress Patient walked 150' with one standing rest break. PT VC to have upright posture to better align COG with FWW. Patients SAO2 dropped to 80% at the end of ambulating, but recovered to 92% with rest, deep breathing techniques and pursed lipped breathing. Patient was left sitting in room with call light in hand and all needs met. PT Short Term Goals Short Term Goals Time Frame: Oct 13, 2021 Roll Left & Right: 6 Sit to lyin Lying to sitting on side of be: 6 Sit to stand: 4 Chair/zww-ta-czrne transfer: 4 Walk 50 feet with two turns: 4 PT Social Sciences Department Chair Goals Half-Way Goals PT Half-Way Goals Time Frame: Oct 17, 2021 Roll Left & Right (QC): 6 Sit to Lying (QC): 6 Lying-Sitting on Side/Bed(QC): 6 Sit to Stand (QC): 6 Chair/Hav-xo-Gnryy Xfer(QC): 6 Walk 150 ft (QC): 6 PT Plan Problem List Problem List: Activity Tolerance, Functional Strength, Safety, Balance, Gait, Transfer Treatment/Plan Treatment Plan: Continue Plan of Care Treatment Plan: Bed Mobility, Education, Functional Activity Josh, Functional Strength, Gait, Safety, Therapeutic Exercise Treatment Duration: Oct 17, 2021 Frequency: 11 times per week Estimated Hrs Per Day: .25 hour per day Patient and/or Family Agrees t: Yes Safety Risks/Education Patient Education: Gait Training, Safety Issues Teaching Recipient: Patient Teaching Methods: Discussion Response to Teaching: Verbalize Understanding Time/GCodes Time In: 0815 Time Out: 08 Total Billed Treatment Time: 16 Total Billed Treatment 1 Visit Gait Training 16min TEGAN SAUL PT Oct 13, 2021 09:34
--- NOTE | 2021-10-13 10:01 | Occupational Ther Daily Note ---
OT Current Status-Daily Note Subjective Pt alert, sitting in recliner. Pt agrees to therapy. No c/o pain at this time. Mental Status/Objective Patient Orientation: Person, Place, Time, Situation Attachments: Tucker Catheter, IV, Oxygen (4L), Telemetry ADL-Treatment Pt agrees to sponge bath. Pt set up for sponge bath while sitting in chair. Pt able to bath all areas in sitting except buttocks/isidro area which wash cleansed in standing with SBA for safety. Pt able to thread socks over toes then required assist to gum puller heel due to fatigue/weakness. Pt required assist to thread arms into hospital gown due to multiple tubing. After therapy, pt sitting in chair with call light/phone in reach. All needs met in room. Therapy Code Descriptions/Definitions Functional [place] Measure: 0=Not Assessed/NA 4=Minimal Assistance 1=Total Assistance 5=Supervision or Setup 2=Maximal Assistance 6=Modified [place] 3=Moderate Assistance 7=Complete IndependenceSCALE: Activities may be completed with or without assistive devices. 7-Gvrsdmjlam-pokzasu completes the activity by him/herself with no assistance from a helper. 5-Set-up or Clean-up Assistance-helper sets up or cleans up; patient completes activity. [place] assists only prior to or following the activity. 4-Supervision or Touching Assistance-helper provides verbal cues and/or touching/steadying and/or contact guard assistance as patient completes activity. Assistance may be provided throughout the activity or intermittently. 3-Partial/Moderate Assistance-helper does LESS THAN HALF the effort. [place] lifts, holds or supports trunk or limbs, but provides less than half the effort. 2-Substantial/Maximal Assistance-helper does MORE THAN HALF the effort. [place] lifts or holds trunk or limbs and provides more than half the effort. 1-Lsyzyomnx-mlrept does ALL the effort. Patient does none of the effort to complete the activity. Or, the assistance of 2 or more helpers is required for the patient to complete the activity. If activity was not attempted, code reason: 7-Patient Refused. 9-Not Applicable-not attempted and the patient did not perform the activity before the current illness, exacerbation or injury. 10-Not Attempted due to Environmental Limitations-(lack of equipment, weather restraints, etc.). 88-Not Attempted due to Medical Conditions or Safety Concerns. Shower/Bathe Self (QC): 4 Upper Body Dressing (QC): 3 On/Off Footwear: 3 (mod A) OT Psychiatric Lpn Goals Psychiatric Lpn Goals Time Frame: Oct 22, 2021 Eating (QC): 6 Oral Hygiene (QC): 5 Toileting Hygiene (QC): 4 Shower/Bathe Self (QC): 4 Upper Body Dressing (QC): 4 Lower Body Dressing (QC): 4 On/Off Footwear (QC): 3 1=Demonstrate adherence to instructed precautions during ADL tasks. 2=Patient will verbalize/demonstrate understanding of assistive devices/modifications for ADL. 3=Patient will improve strength/tolerance for activity to enable patient to perform ADL's. OT Education/Plan Problem List/Assessment Assessment: Decreased Activ Tolerance, Decreased UE Strength, Impaired Self- Care Skills Discharge Recommendations Plan/Recommendations: Continue POC Treatment Plan/Plan of Care Patient would benefit from OT for education, treatment and training to promote independence in ADL's, mobility, safety and/or upper extremity function for ADL's. Plan of Care: ADL Retraining, Functional Mobility, UE Funct Exercise/Act Treatment Duration: Oct 22, 2021 Frequency: 3 times per week (3-5x/week) Estimated Hrs Per Day: .25 hour per day Rehab Potential: Good Time/GCodes Start Time: 09:28 Stop Time: 09:56 Total Time Billed (hr/min): 28 Billed Treatment Time 1 visit-ADL 2 (28 min) NATHAN BURT Oct 13, 2021 10:01
[2021-10-13] MEDS: ENOXAPARIN 40 MG/0.4 ML (LOVENOX) SYR SC SCH (14:10)
[2021-10-13] MEDS: MONTELUKAST 10 MG (SINGULAIR) TAB PO SCH (20:36)
[2021-10-13] MEDS: methylPREDNISolone 40 MG/ML (Solu-MEDROL) VIAL IV SCH (20:36)
[2021-10-13] MEDS: PARoxetine 20 MG (PAXIL) TAB PO SCH (20:36)
[2021-10-13] MEDS: traZODone 100 MG (DESYREL) TAB PO SCH (20:36)
[2021-10-13] MEDS: MELATONIN 10 MG TABLET PO SCH (20:36)
[2021-10-14] VITALS: BP 153/84
[2021-10-14] MEDS: RT-ALBUTEROL/IPRATROPIUM 3 ML (DUONEB) VIAL INH SCH ×2 (02:20→07:07)
[2021-10-14 03:56] VITALS: BP 160/86
--- NOTE | 2021-10-14 06:08 | Progress Note - Hospitalist ---
Subjective HPI/CC On Admission Date Seen by Provider: Oct 14, 2021 CC: SOB HPI: 80 yr old WF with a decline in function since her right hip fracture in June. Requiring a [facility] and Rehab stay then went to live with her granddaughter. She presented with SOB and was found to have elevated BNP and evidence of exacerbation of COPD. She is currently on BiPAP and will be placed in cardiac step down unit. Dr. Forde will be consulted. Focused Exam Lactate Level Objective Exam Vital Signs Vital Signs Date Time Temp Pulse Resp B/P (MAP) Pulse Ox O2 Delivery O2 Flow Rate FiO2 10/14/21 09:00 Nasal Cannula 3.00 10/14/21 08:00 35.8 83 18 152/81 (104) 92 10/14/21 07:13 21 Capillary Refill : Less Than 3 Seconds Results/Procedures Lab Laboratory Tests 10/14/21 05:29 Patient resulted labs reviewed. Assessment/Plan Assessment and Plan Assess & Plan/Chief Complaint Assessment: Acute hypoxic respiratory failure with hypercapnia BiPAP dependent COPD with exacerbation without evidence of pneumonia or sepsis Advanced age with severe debility Exacerbation of congestive heart failure Plan: Dr. Forde consult Steroids Lasix 10/12/2021: Transfer to fourth floor Wean BiPAP 10/13/2021: Transfer to fourth floor Continue Lasix and steroids Diagnosis/Problems Diagnosis/Problems (1) Acute on chronic systolic heart failure (2) COPD exacerbation (3) Acute respiratory failure with hypercapnia Status: Acute MAE LENTZ DO Oct 14, 2021 06:08
[2021-10-14 06:10] LABS: BASOPHILS % (AUTO) 0 % (0-10); EOSINOPHILS % (AUTO) 0 % (0-10); HEMATOCRIT 34 % (35-52); HEMOGLOBIN 10.9 g/dL (11.5-16.0); LYMPHOCYTES # (AUTO) 0.4 10^3/uL (1.0-4.0); LYMPHOCYTES % (AUTO) 7 % (12-44); MEAN CORPUSCULAR HEMOGLOBIN 31 pg (25-34); MEAN CORPUSCULAR HGB CONC 32 g/dL (32-36); MEAN CORPUSCULAR VOLUME 99 fL (80-99); MEAN PLATELET VOLUME 10.9 fL (9.0-12.2); MONOCYTES # (AUTO) 0.3 10^3/uL (0.0-1.0); MONOCYTES % (AUTO) 5 % (0-12); NEUTROPHILS # (AUTO) 5.2 10^3/uL (1.8-7.8); NEUTROPHILS % (AUTO) 88 % (42-75); PLATELET COUNT 150 10^3/uL (130-400)
[2021-10-14 06:48] LABS: ALBUMIN 3.2 GM/DL (3.2-4.5); BILIRUBIN,TOTAL 0.2 MG/DL (0.1-1.0); CALCIUM 8.3 MG/DL (8.5-10.1); CREATININE SERUM 1.25 MG/DL (0.60-1.30); POTASSIUM 4.4 MMOL/L (3.6-5.0)
[2021-10-14 07:13] VITALS: BP 160/86
[2021-10-14 08:00] VITALS: BP 152/81
[2021-10-14] MEDS: FUROSEMIDE 40 MG/4 ML INJ (LASIX) IVP SCH (08:33)
[2021-10-14] MEDS: ASPIRIN E.C. 81 MG (ECOTRIN) TAB PO SCH (08:33)
[2021-10-14] MEDS: METOCLOPRAMIDE 10 MG (REGLAN) TAB PO SCH (08:33)
[2021-10-14] MEDS: LORATADINE (CLARITIN) 10 MG TAB PO SCH (08:33)
[2021-10-14] MEDS: DOCUSATE SODIUM 100 MG (COLACE) CAP PO SCH (08:33)
[2021-10-14] MEDS: SENNOSIDES 8.6 MG (SENOKOT) TAB PO SCH (08:33)
[2021-10-14] MEDS: lisINopril 40 MG (PRINIVIL) TABLET PO SCH (08:33)
[2021-10-14] MEDS: methylPREDNISolone 40 MG/ML (Solu-MEDROL) VIAL IV SCH (08:33)
[2021-10-14] MEDS: meTOproloL SUCCINATE 50 MG (TOPROL XL) TAB PO SCH (08:33)
--- NOTE | 2021-10-14 08:45 | Physical Therapy Daily Note ---
PT Daily Note-Current Subjective Patient states that she was ready to get out of bed. Pain Location: No Pain Reported Mental Status Patient Orientation: Person, Place, Time, Situation Attachments: Tucker Catheter Transfers SCALE: Activities may be completed with or without assistive devices. 8-Ddwtndxlxn-gbzpktb completes the activity by him/herself with no assistance from a helper. 5-Set-up or Clean-up Assistance-helper sets up or cleans up; patient completes activity. [place] assists only prior to or following the activity. 4-Supervision or Touching Assistance-helper provides verbal cues and/or touching/steadying and/or contact guard assistance as patient completes activity. Assistance may be provided throughout the activity or intermittently. 3-Partial/Moderate Assistance-helper does LESS THAN HALF the effort. [place] lifts, holds or supports trunk or limbs, but provides less than half the effort. 2-Substantial/Maximal Assistance-helper does MORE THAN HALF the effort. [place] lifts or holds trunk or limbs and provides more than half the effort. 2-Yzwzsaibs-qdiyxw does ALL the effort. Patient does none of the effort to complete the activity. Or, the assistance of 2 or more helpers is required for the patient to complete the activity. If activity was not attempted, code reason: 7-Patient Refused. 9-Not Applicable-not attempted and the patient did not perform the activity before the current illness, exacerbation or injury. 10-Not Attempted due to Environmental Limitations-(lack of equipment, weather restraints, etc.). 88-Not Attempted due to Medical Conditions or Safety Concerns. Lying to Sitting/Side of Bed(Q: 5 Sit to Stand (QC): 4 Weight Bearing Full Weight Bearing Full Weight Bearing Gait Training Does the Patient Walk?: Yes Distance: 150' Walk 10 feet (QC): 3 Walk 50 ft with 2 Turns(QC): 3 Walk 150 ft (QC): 3 Gait Assistive Device: FWW Wheelchair Training Does the Pt Use a Wheelchair?: No Type of Wheelchair: N/A Treatments Ambulation Assessment Current Status: Poor Progress Patient walked 150' with FWW, [place] x 1 with one standing recovery period. Patient would veer to the left several times and would require verbal cues to walk straight. Patient also walks with extended arms out, and required VC to remain more centered with walker. Patient lost balance toward the end of the walking distance and was recovered by PT. patient was not on oxygen, but SpO2 read 94% at the end of ambulating. PT Short Term Goals Short Term Goals Time Frame: Oct 13, 2021 Roll Left & Right: 6 Sit to lyin Lying to sitting on side of be: 6 Sit to stand: 4 Chair/biw-qx-sprsj transfer: 4 Walk 50 feet with two turns: [address] Goals Alf Goals PT Deputy Court Clerk Goals Time Frame: Oct 17, 2021 Roll Left & Right (QC): 6 Sit to Lying (QC): 6 Lying-Sitting on Side/Bed(QC): 6 Sit to Stand (QC): 6 Chair/Cnz-jf-Hkvbm Xfer(QC): 6 Walk 150 ft (QC): 6 PT Plan Problem List Problem List: Activity Tolerance, Functional Strength, Safety, Balance, Gait, Transfer Treatment/Plan Treatment Plan: Continue Plan of Care Treatment Plan: Bed Mobility, Education, Functional Activity Josh, Functional Strength, Gait, Safety, Therapeutic Exercise Treatment Duration: Oct 17, 2021 Frequency: 11 times per week Estimated Hrs Per Day: .25 hour per day Patient and/or Family Agrees t: Yes Safety Risks/Education Patient Education: Gait Training, Correct Positioning, Safety Issues Teaching Recipient: Patient Teaching Methods: Discussion Response to Teaching: Verbalize Understanding Time/GCodes Time In: 0755 Time Out: 08 Total Billed Treatment Time: 10 Total Billed Treatment 1 Visit GT 10min TEGAN SAUL PT Oct 14, 2021 08:45
--- NOTE | 2021-10-14 11:29 | Cardiology Progress Note ---
Subjective Date Seen by Provider: Oct 14, 2021 Time Seen by Provider: 11:28 Subjective/Events-last exam Patient is laying down in bed. No new complaint. Denied any chest pain Review of Systems General: No Chills, No Night Sweats, No Fatigue, No Malaise, No Appetite, No Other HEENT: No Head Aches, No Visual Changes, No Eye Pain, No Ear Pain, No Dysphasia, No Sinus Congestion, No Post Nasal Drip, No Sore Throat, No Other Pulmonary: No Dyspnea, No Cough, No Pleuritic Chest Pain, No Other Cardiovascular: No: Chest Pain, Palpitations, Orthopnea, Paroxysmal Noc. Dyspnea, Edema, Lt Headedness, Other Objective-Cardiology Exam Last Set of Vital Signs Vital Signs 10/14/21 10/14/21 10/14/21 07:13 08:00 09:00 Temp 35.8 Pulse 83 Resp 18 B/P (MAP) 152/81 (104) Pulse Ox 92 O2 Delivery Nasal Cannula O2 Flow Rate 3.00 FiO2 21 I&O Intake and Output 10/14/21 00:00 Intake Total 1340 ml Output Total 1450 ml Balance -110 ml Intake Oral 1340 ml Output Urine Total 1450 ml General: Alert, Oriented X3, Cooperative HEENT: Atraumatic, PERRLA Neck: Supple, No JVD, No Thyromegaly Lungs: Normal Air Movement, Other (Bilateral rhonchi) Heart: Regular Rate, Normal S1, Normal S2, No Murmurs Abdomen: Normal Bowel Sounds, Soft, No Tenderness, No Hepatosplenomegaly, No Masses Extremities: No Clubbing, No Cyanosis, Normal Pulses, No Tenderness/Swelling, Other (Mild pedal edema) Skin: No Rashes, No Breakdown, No Significant Lesion Neuro: Normal Speech, Normal Tone, Sensation Intact Psych/Mental Status: Mental Status NL, Mood NL Results Lab Laboratory Tests 10/14/21 05:29 A/P-Cardiology Admission Diagnosis AE COPD Acute on chronic CHF HTN HLP Assessment/Plan AE COPD, improving, feeling better today. Management per medical service. Acute on Chronic systolic CHF due to nonischemic cardiomyopathy. Echo on 07/12/21: LVEF 40-45%, mild conc LVH, mild AI, PASP 20-25 mmHg, maintained on ESTRELLITA-I, beta amy. I stopped Lasix today due to deterioration in renal function. I will use Lasix 20 mg IV daily and evaluate tolerance and response Coronary artery disease, Cardiac catheterization done on September [address] Thomas showing tortuous coronary system with mild disease nonobstructive disease Chronic left bundle branch block Tobaccoism Hypertension, restarted on home blood pressure medication, continue to monitor. Hyperlipidemia, Hx of right hip fx in June 2021 History of elevated liver enzymes Anxiety ANA PAULA THOMAS MD Oct 14, 2021 11:29
[2021-10-14 12:00] VITALS: BP 141/75
[2021-10-14] MEDS ORDERED: PRED10TA22 PO (12:03)
--- NOTE | 2021-10-14 12:04 | Discharge Summary ---
Discharge Summary Hospital Course Was the Problem List Reviewed?: Yes Problems/Dx: (1) Acute on chronic systolic heart failure (2) COPD exacerbation (3) Acute respiratory failure with hypercapnia Status: Acute Hospital Course Date of Admission: Oct 11, 2021 at 13:43 Admission Diagnosis : [facility] Date of Discharge: 10/14/21 Discharge Diagnosis: acute hypoxic hypercapneic resp failure, CHF, AECOPD Hospital Course: Pt had an uneventful 4 day hospital course after she was admitted for COPD exacerbation and volume overload. Cardiology was consulted and gave aggressive IV diuresis. I mainateind IV steroids. No evidence of any pneumonia or any infection. She was discharged in improved condition on home health with a Prednisone taper dose of 40 mg decrease by one pill every day. Labs and Pending Lab Test: Laboratory Tests 10/14/21 05:29: White Blood Count 6.0, Red Blood Count 3.47L, Hemoglobin 10.9L, Hematocrit 34L, Mean Corpuscular Volume 99, Mean Corpuscular Hemoglobin 31, Mean Corpuscular Hemoglobin Concent 32, Red Cell Distribution Width 13.8, Platelet Count 150, Mean Platelet Volume 10.9, Immature Granulocyte % (Auto) 1, Neutrophils (%) (Auto) 88H, Lymphocytes (%) (Auto) 7L, Monocytes (%) (Auto) 5, Eosinophils (%) (Auto) 0, Basophils (%) (Auto) 0, Neutrophils # (Auto) 5.2, Lymphocytes # (Auto) 0.4L, Monocytes # (Auto) 0.3, Eosinophils # (Auto) 0.0, Basophils # (Auto) 0.0, Immature Granulocyte # (Auto) 0.0, Sodium Level 137, Potassium Level 4.4, Chloride Level 100, Carbon Dioxide Level 24, Anion Gap 13, Blood Urea Nitrogen 58H, Creatinine 1.25, Estimat Glomerular Filtration Rate 43, BUN/Creatinine Ratio 46, Glucose Level 121H, Calcium Level 8.3L, Corrected Calcium 8.9, Total Bilirubin 0.2, Aspartate Amino Transf (AST/SGOT) 15, Alanine Aminotransferase (ALT/SGPT) 20, Alkaline Phosphatase 68, Total Protein 7.0, Albumin 3.2 Microbiology 10/11/21 Urine Culture - Final, Complete NO GROWTH 10/11/21 Blood Culture - Final, Complete Staphylococcus hominis Staphylococcus epidermidis No Susceptibility Performed Home Meds Active Reported Paroxetine HCl 40 Mg Tablet 40 Mg PO HS Montelukast Sodium 10 Mg Tablet 10 Mg PO HS Furosemide 20 Mg Tablet 20 Mg PO DAILY Tylenol Extra Strength (Acetaminophen) 500 Mg Tablet 500-1,000 Mg PO Q8H PRN Melatonin 5 Mg Tablet 5 Mg PO HS Aspirin EC (Aspirin) 81 Mg Tablet.dr 81 Mg PO DAILY Metoprolol Succinate 50 Mg Tab.er.24h 50 Mg PO DAILY Lisinopril 40 Mg Tablet 40 Mg PO DAILY Atorvastatin Calcium 20 Mg Tablet 20 Mg PO DAILY Metoclopramide HCl 10 Mg Tablet 10 Mg PO BID Trazodone HCl 100 Mg Tablet 100 Mg PO HS Cetirizine HCl 10 Mg Tablet 10 Mg PO DAILY Assessment/Pt Instructions PCP 1 week Discharge Planning: <30 minutes discharge planning Discharge Instructions Discharge Diet: No Restrictions Discharge Physical Examination Vital Signs Vital Signs Date Time Temp Pulse Resp B/P (MAP) Pulse Ox O2 Delivery O2 Flow Rate FiO2 10/14/21 09:00 Nasal Cannula 3.00 10/14/21 08:00 35.8 83 18 152/81 (104) 92 10/14/21 07:13 21 General Appearance: No Apparent Distress, WD/WN, Chronically ill Respiratory: Lungs Clear Cardiovascular: Regular Rate, Rhythm Allergies: Coded Allergies: cortisone (Verified Allergy, Unknown, 01/30/07) diphenhydramine (Verified Allergy, Unknown, 01/30/07) penicillin G (Verified Allergy, Unknown, 07/12/21) The patient is unaware that she has a penicillin allergy. She does not remember ever taking it and if she did what the reaction was. It has not been recently. Discharge Summary Date of Admission Oct 11, 2021 at 13:43 Date of Discharge Discharge Date: Oct 14, 2021 Admission Diagnosis Assessment: Acute hypoxic respiratory failure with hypercapnia BiPAP dependent COPD with exacerbation without evidence of pneumonia or sepsis Advanced age with severe debility Exacerbation of congestive heart failure Plan: Dr. Forde consult Steroids Lasix Discharge Diagnosis Assessment: Acute hypoxic respiratory failure with hypercapnia BiPAP dependent COPD with exacerbation without evidence of pneumonia or sepsis Advanced age with severe debility Exacerbation of congestive heart failure Plan: Dr. Forde consult Steroids Lasix 10/12/2021: Transfer to fourth floor Wean BiPAP 10/13/2021: Transfer to fourth floor Continue Lasix and steroids (1) Acute on chronic systolic heart failure (2) COPD exacerbation (3) Acute respiratory failure with hypercapnia Status: Acute MAE LENTZ DO Oct 14, 2021 12:04
--- NOTE | 2021-10-14 12:23 | D/C HH Face to Face Order ---
D/C Face to Face Orders Reconcile Patient Problems Problems Reviewed?: Yes Instructions for Patient Via [place] [employer], Patient Instructions/FollowUp: PCP 1 week Physician to follow Patient: [facility] Discharge Diet for Home: No Restrictions Patient Problems: COPD Patient Data-Allergies,Ht & Wt Patient Allergies: Coded Allergies: cortisone (Verified Allergy, Unknown, 01/30/07) diphenhydramine (Verified Allergy, Unknown, 01/30/07) penicillin G (Verified Allergy, Unknown, 07/12/21) The patient is unaware that she has a penicillin allergy. She does not remember ever taking it and if she did what the reaction was. It has not been recently. Height (Feet): 5 Height (Inches): 4.00 Weight (Pounds): 188 Weight (Ounces): 0.0 Home Health Need/Face to Face Date of Face to Face: Oct 14, 2021 Clinical Findings: Generalized weakness and fatigue, Instability, Muscle weakness, Shortness of breath I have seen Pt [id number]: Yes Discharged To: Home Diagnosis/Conditions: COPD Patient is Homebound due to: Muscle weakness, Shortness of breath/distress Homebound Status Due to the above stated illness, injury or surgical procedure (medical condition or diagnosis) and associated clinical findings, the patient is homebound because of his/her inability to leave home except with aid of a s upportive device and/or person AND leaving the home requires a considerable and taxing effort or is medically contraindicated. Pt req the following assistanc: [facility] Nursing Orders Home Health Services Order: Nursing Services, Explosive Expert-Evaluate & Treat, Physical Therapy-Evaluate & Treat Home Health Infusion Therapy Line Start Date: Oct 11, 2021 Certify Stmt I certify that this patient is under my care and that I, a nurse practitioner or a physician; a assistant professor of dietetics working with me, had a face to face encounter that - meets the physician face to face encounter requirements with this patient as dated. MAE LENTZ DO Oct 14, 2021 12:23
--- NOTE | 2021-10-14 13:26 | Occupational Ther Daily Note ---
OT Current Status-Daily Note Subjective Pt alert, sitting in recliner. Pt agrees to therapy. No c/o pain. Mental Status/Objective Patient Orientation: Person, Place, Time, Situation Attachments: Tucker Catheter, IV ADL-Treatment Therapy Code Descriptions/Definitions Functional [place] Measure: 0=Not Assessed/NA 4=Minimal Assistance 1=Total Assistance 5=Supervision or Setup 2=Maximal Assistance 6=Modified [place] 3=Moderate Assistance 7=Complete IndependenceSCALE: Activities may be completed with or without assistive devices. 8-Iwfgfknmgv-dfwkrkv completes the activity by him/herself with no assistance from a helper. 5-Set-up or Clean-up Assistance-helper sets up or cleans up; patient completes activity. [place] assists only prior to or following the activity. 4-Supervision or Touching Assistance-helper provides verbal cues and/or touching/steadying and/or contact guard assistance as patient completes activity. Assistance may be provided throughout the activity or intermittently. 3-Partial/Moderate Assistance-helper does LESS THAN HALF the effort. [place] lifts, holds or supports trunk or limbs, but provides less than half the effort. 2-Substantial/Maximal Assistance-helper does MORE THAN HALF the effort. [place] lifts or holds trunk or limbs and provides more than half the effort. 9-Gqyugbszp-mvcuwq does ALL the effort. Patient does none of the effort to complete the activity. Or, the assistance of 2 or more helpers is required for the patient to complete the activity. If activity was not attempted, code reason: 7-Patient Refused. 9-Not Applicable-not attempted and the patient did not perform the activity before the current illness, exacerbation or injury. 10-Not Attempted due to Environmental Limitations-(lack of equipment, weather restraints, etc.). 88-Not Attempted due to Medical Conditions or Safety Concerns. Eating (QC): 6 Other Treatment Light resistance theraband HEP and theraband given for use in room and home. Skilled instruction given for correct technique during exercises. Pt completed 1 set 10 reps with verbal and gestural cues for correct technique. Pt tolerated well and instructed for pt to complete throughout the day to increase strength and endurance. Pt delivered lunch, pt able to set up own meal. After therapy, pt sitting in recliner with call light/phone in reach. All needs met in room. OT An/Sqq 89(V)15 Sonar System Journeyman Goals An/Sqq 89(V)15 Sonar System Journeyman Goals Time Frame: Oct 22, 2021 Eating (QC): 6 Oral Hygiene (QC): 5 Toileting Hygiene (QC): 4 Shower/Bathe Self (QC): 4 Upper Body Dressing (QC): 4 Lower Body Dressing (QC): 4 On/Off Footwear (QC): 3 1=Demonstrate adherence to instructed precautions during ADL tasks. 2=Patient will verbalize/demonstrate understanding of assistive devices/modifications for ADL. 3=Patient will improve strength/tolerance for activity to enable patient to perform ADL's. OT Education/Plan Problem List/Assessment Assessment: Decreased Activ Tolerance, Decreased UE Strength Discharge Recommendations Plan/Recommendations: Continue POC Treatment Plan/Plan of Care Patient would benefit from OT for education, treatment and training to promote independence in ADL's, mobility, safety and/or upper extremity function for ADL's. Plan of Care: ADL Retraining, Functional Mobility, UE Funct Exercise/Act Treatment Duration: Oct 22, 2021 Frequency: 3 times per week (3-5x/week) Estimated Hrs Per Day: .25 hour per day Rehab Potential: Good Time/GCodes Start Time: 11:00 Stop Time: 11:10 Total Time Billed (hr/min): 10 Billed Treatment Time 1 visit-EX 1 (10 min) NATHAN BURT Oct 14, 2021 13:26
[2021-10-14] MEDS: ENOXAPARIN 40 MG/0.4 ML (LOVENOX) SYR SC SCH (13:42)
[2021-10-14 13:43] VITALS: BP 141/75
[2021-10-14] MEDS ORDERED: RT-ALBUTEROL/IPRATROPIUM 3 ML (DUONEB) VIAL INH SCH (15:00)
== END 2021-10-14 13:50 | disposition home health service (06) | DRG 291 ==
LOC: EDUNIT# 08:01 → ER 08:02 → CSD 13:43 → 4TH 10-13 12:56
PROVIDERS: ADMIT Internal Medicine; ATTEND Internal Medicine
PROC: 5A09357 Assistance with Respiratory Ventilation, Less than 24 Consecutive Hours, Continuous Positive Airway Pressure (ICD-10-PCS; principal; 2021-10-11)
DX: I11.0 Hypertensive heart disease with heart failure (principal); I50.23 Acute on chronic systolic (congestive) heart failure; J96.01 Acute respiratory failure with hypoxia; J96.02 Acute respiratory failure with hypercapnia; J44.1 Chronic obstructive pulmonary disease with (acute) exacerbation; I42.8 Other cardiomyopathies; I25.10 Atherosclerotic heart disease of native coronary artery without angina pectoris; I44.7 Left bundle-branch block, unspecified; F17.210 Nicotine dependence, cigarettes, uncomplicated; F41.9 Anxiety disorder, unspecified; K21.9 Gastro-esophageal reflux disease without esophagitis; E78.00 Pure hypercholesterolemia, unspecified; M19.90 Unspecified osteoarthritis, unspecified site; Z20.822 Contact with and (suspected) exposure to COVID-19; Z86.16 Personal history of COVID-19; Z79.82 Long term (current) use of aspirin; Z79.899 Other long term (current) drug therapy
CPT/HCPCS: 36415; 51702; 71045; 71275; 80053; 81000; 82805; 83605; 83735; 83880; 84145; 84484; 85007; 85025; 85027; 85379; 85610; 85730; 86141; 87040; 87077; 87088; 87636; 93005; 94640; 94660; 94760; 96374; 96375

== ENCOUNTER → 2021-10-21 | Outpatient (CLI) | payer MEDICARE, MEDICAID ==
[~2021-10-21] MED LIST changes: +ACET-2267 PO; +CATHETER FLUSH 10 ML SYR IV PRN; +HOLD METFORMIN - RECEIVED CONTRAST 20 ML VIAL IV SCH; +IOHEXOL 350 MG/ML 100 ML (OMNIPAQUE 350) VIAL IV ONE; +MELA5TAB14 PO; +NS 100 ML (IVPB) BAG IV ONE; +PRED10TA22 PO; +TRAZ-227 PO
--- NOTE | 2021-10-21 09:54 | Diagnostic Imaging Report ---
PROCEDURE: CT angiography of the chest with contrast. TECHNIQUE: Multiple contiguous axial images were obtained through the chest after uneventful bolus administration of intravenous contrast. 3D reconstructed CTA MIP acquisitions were also performed. Auto Exposure Controls were utilized during the CT exam to meet ALARA standards for radiation dose reduction. INDICATION: Dyspnea. COMPARISON: 10/11/2021 FINDINGS: There is good opacification of pulmonary arteries without intraluminal filling defect. Thoracic aorta demonstrates atherosclerotic calcification without evidence of dissection or aneurysm. No significant pleural or pericardial fluid is identified. There is mild motion artifact, however no consolidation or focal infiltrate is seen within the lungs. There is mild coronary artery calcification. Gallbladder surgically absent. Nonacute compression fracture deformities are again seen within thoracic vertebra. IMPRESSION: No CTA evidence of pulmonary embolism or other acute abnormality in the chest. Dictated by: Dictated on workstation # [id number]
== END ==
LOC: CARD 12:45
PROVIDERS: ATTEND Pediatrics
DX: R06.02 Shortness of breath (principal); R06.00 Dyspnea, unspecified
CPT/HCPCS: 71275; 93306

== ENCOUNTER 2021-11-08 13:33 | Observation (INO) | payer MEDICARE, MEDICAID ==
[~2021-11-08] VITALS: Ht 162 cm; Wt 80.5 kg
[~2021-11-08 13:33] MED LIST changes: -CATHETER FLUSH 10 ML SYR IV PRN; -HOLD METFORMIN - RECEIVED CONTRAST 20 ML VIAL IV SCH; -IOHEXOL 350 MG/ML 100 ML (OMNIPAQUE 350) VIAL IV ONE; -NS 100 ML (IVPB) BAG IV ONE
--- NOTE | 2021-11-08 13:55 | ED Neurological Problem ---
General Chief Complaint: Neuro-Stroke Like Symptoms Stated Complaint: L SIDE WEAKNESS/FACIAL DROOPING Nursing Triage Note: ARRIVED VIA WC TO ROOM 01. DAUGHTER STATES HOSPICE NURSE NOTICED THE LEFT SIDE OF HER FACE WITH DROOPING AND LEFT SIDED WEAKNESS. LAST WELL KNOWN TIME 1100 TODAY HOWEVER DAUGHTER STATES SHE NOTICED SOMETHING OFF ON HER SUNDAY. Source: patient Exam Limitations: no limitations History of Present Illness Date Seen by Provider: Nov 08, 2021 Time Seen by Provider: 13:44 Initial Comments Patient to ER with noted left arm weakness and left facial droop, noticed by home health nurse at 1315. The daughter saw the patient at 11:00 this morning and she was fine. No history of stroke or heart attack. She does have hypertension hyperlipidemia COPD quit smoking many many years ago. Allergies and Home Medications Allergies Coded Allergies: cortisone (Verified Allergy, Unknown, 01/30/07) diphenhydramine (Verified Allergy, Unknown, 01/30/07) penicillin G (Verified Allergy, Unknown, 07/12/21) The patient is unaware that she has a penicillin allergy. She does not remember ever taking it and if she did what the reaction was. It has not been recently. Patient Home Medication List Home Medication List Reviewed: Yes Acetaminophen (Tylenol Extra Strength) 500 Mg Tablet, 500-1,000 MG PO Q8H PRN for PAIN-MILD (1-4), (Reported) Entered as Reported by: ELZA AGUILAR on 10/11/211541 Aspirin (Aspirin EC) 81 Mg Tablet.dr, 81 MG PO DAILY, (Reported) Entered as Reported by: ELZA AGUILAR on 10/11/211541 Atorvastatin Calcium (Atorvastatin Calcium) 20 Mg Tablet, 20 MG PO DAILY, (Reported) Entered as Reported by: ELZA AGUILAR on 10/11/211541 Cetirizine HCl (Cetirizine HCl) 10 Mg Tablet, 10 MG PO DAILY, (Reported) Entered as Reported by: ELZA AGUILAR on 10/11/211541 Furosemide (Furosemide) 20 Mg Tablet, 20 MG PO DAILY, (Reported) Entered as Reported by: ELZA AGUILAR on 10/11/211541 Lisinopril (Lisinopril) 40 Mg Tablet, 40 MG PO DAILY, (Reported) Entered as Reported by: ELZA AGUILAR on 3/22/22 1542 Melatonin (Melatonin) 5 Mg Tablet, 5 MG PO HS, (Reported) Entered as Reported by: ELZA AGUILAR on 10/11/21 154 Metoclopramide HCl (Metoclopramide HCl) 10 Mg Tablet, 10 MG PO BID, (Reported) Entered as Reported by: ELZA AGUILAR on 10/11/21 154 Metoprolol Succinate (Metoprolol Succinate) 50 Mg Tab.er.24h, 50 MG PO DAILY, (Reported) Entered as Reported by: ELZA AGUILAR on 10/11/21 154 Montelukast Sodium (Montelukast Sodium) 10 Mg Tablet, 10 MG PO HS, (Reported) Entered as Reported by: ELZA AGUILAR on 10/11/21 154 Paroxetine HCl (Paroxetine HCl) 40 Mg Tablet, 40 MG PO HS, (Reported) Entered as Reported by: ELZA AGUILAR on 10/11/211541 Prednisone (Prednisone) 10 Mg Tab.ds.pk, 10 MG PO DAILY Prescribed by: MAE LENTZ on 10/14/21 1203 Trazodone HCl (Trazodone HCl) 100 Mg Tablet, 100 MG PO HS, (Reported) Entered as Reported by: ELZA AGUILAR on 10/11/211541 Review of Systems Review of Systems Constitutional: No chills, No diaphoresis Eyes: Denies Blindness, Denies Drainage Ears, Nose, Mouth, Throat: denies ear pain, denies ear discharge Respiratory: No cough, No short of breath Cardiovascular: No chest pain, No edema Gastrointestinal: No abdominal pain, No constipation, No diarrhea Genitourinary: No discharge, No dysuria : No Musculoskeletal: No back pain, No joint pain All Other Systems Reviewed Negative Unless Noted: Yes Past Jjnfcmu-Jdgeha-Wqeldj Hx Patient Social History Tobacco Use?: No Use of E-Cig and/or Vaping dev: No Substance use?: No Immunizations Up To Date Tetanus Booster (TDap): Less than 5yrs PED Vaccines UTD: Yes First/Initial COVID19 Vaccinat: unknown date but did get vaccine per patient Second COVID19 Vaccination Taurus: unknown date but did get vaccine per patient Seasonal Allergies Seasonal Allergies: Yes Past Medical History Surgery/Hospitalization HX: htn, gerd, high cholesterol, asthma Surgeries: Yes (RIGHT BREAST BIOPSY,ROTATOR CUFF) Section, Gallbladder, Hysterectomy, Oophorectomy, Orthopedic, Tonsillectomy Respiratory: Yes (COVID-19 12/2020-NO HOSPITALIZATION OR TREATMENT) Asthma, COPD Cardiac: Yes Cardiomyopathy, Hypertension Neurological: No Reproductive Disorders: No Sexually Transmitted Disease: No Genitourinary: Yes UTI-Chronic Gastrointestinal: Yes Gastroesophageal Reflux Musculoskeletal: Yes (FALLS) Arthritis Endocrine: No HEENT: No Cancer: No Psychosocial: No Blood Disorders: Yes (ANEMIA) Adverse Reaction/Blood Tranf: No Family Medical History No Pertinent Family Hx, Cancer Physical Exam Vital Signs Vital Signs - First Documented 11/08/21 13:38 Temp 36.3 Pulse 77 Resp 16 B/P (MAP) 213/115 (147) Pulse Ox 92 O2 Delivery Room Air Capillary Refill : Less Than 3 Seconds Height, Weight, BMI Height: 5'4.00" Weight: 188lbs. 0.0oz. 85.089800xo; 31.00 BMI Method:Stated General Appearance: WD/WN, no apparent distress HEENT: PERRL/EOMI, normal ENT inspection, pharynx normal Neck: full range of motion, supple, normal inspection Respiratory: lungs clear, normal breath sounds, no respiratory distress, no accessory muscle use Cardiovascular: normal peripheral pulses, regular rate, rhythm Peripheral Pulses: 2+ Radial Pulses (R), 2+ Radial Pulses (L) Gastrointestinal: normal bowel sounds, non tender, soft Extremities: normal range of motion, non-tender, normal capillary refill Neurologic/Psychiatric: alert, normal mood/affect, oriented x 3, other (Left facial droop) Crainal Nerves: normal hearing, normal speech, PERRL Motor/Sensory: no sensory deficit, no pronator drift, other (Left facial droop) Skin: normal color, warm/dry Stroke Onset of Symptoms Date of Onset of Symptoms: Nov 08, 2021 Time of Symptom Onset: 11:00 Onset of Symptoms: Yes Symptoms onset unknown: No NIH Stroke Scale Assessment Select: Initial Level of Consciousness: 0=Alert (0), Level of Consciousness- Questions: 0=Answers both month/age (0), LOC Commands: 0=Performs both tasks (0), Gaze: Normal (0), Visual [place]: 0=No visual loss (0), Facial Movement (Facial Paresis): 2=Partial paralysis (2), Motor Function-Arms Right: 0=No drift (0), Motor Function-Arms Left: 0=No drift (0), Motor Function-Legs Right: 0=No drift (0), Motor Function-Legs Left: 0=No drift (0), Limb Ataxia: 0=Absent (0), Sensory: 0=Normal:no loss (0), Best Language: 0=No aphasia (0), Dysarthria: 0=Normal (0), Extinction & Inattention: 0=No abnormality (0), Total: 2 Stroke Thrombolytic Exclusion Age 18 or Over: Yes Acute intenal hemorrhage: No History of CVA: No Uncontrolled Coagulation Defec: No Intracranial Hemorrhage: No Severe Hypertension: No GI or Bleed: No Subarachnoid Hemorrhage: No Intracranial Neoplasm/Aneurysm: No Oral Anticoagulants: No Surgery or Trauma: No Puncture of Non-Compressible V: No Recent CPR: No Diabetic Hemorrhagic Retinopat: No Organ Biopsy: No Recent Obstetric Delivery: No Glucose: No (107) Significant Hepatic Dysfunctio: No NIH Stoke Scale >22: No Bacterial Endocarditis: No Pericarditis: No Improving Symptoms: No Platelets: No TPA Contraindication: No Procedures/Interventions Suture Size: 5-0 Progress/Results/Core Measures Results/Orders Lab Results Laboratory Tests Test 11/08/21 13:56 11/08/21 14:15 Range/Units White Blood Count 4.1 L 4.3-11.0 10^3/uL Red Blood Count 3.71 L 3.80-5.11 10^6/uL Hemoglobin 11.6 11.5-16.0 g/dL Hematocrit 38 35-52 % Mean Corpuscular Volume 101 H 80-99 fL Mean Corpuscular Hemoglobin 31 25-34 pg Mean Corpuscular Hemoglobin Concent 31 L 32-36 g/dL Red Cell Distribution Width 14.7 H 10.0-14.5 % Platelet Count 135 130-400 10^3/uL Mean Platelet Volume 10.7 9.0-12.2 fL Immature Granulocyte % (Auto) 0 % Neutrophils (%) (Auto) 55 42-75 % Lymphocytes (%) (Auto) 33 12-44 % Monocytes (%) (Auto) 9 0-12 % Eosinophils (%) (Auto) 2 0-10 % Basophils (%) (Auto) 1 0-10 % Neutrophils # (Auto) 2.3 1.8-7.8 10^3/uL Lymphocytes # (Auto) 1.4 1.0-4.0 10^3/uL Monocytes # (Auto) 0.4 0.0-1.0 10^3/uL Eosinophils # (Auto) 0.1 0.0-0.3 10^3/uL Basophils # (Auto) 0.0 0.0-0.1 10^3/uL Immature Granulocyte # (Auto) 0.0 0.0-0.1 10^3/uL Prothrombin Time 13.3 12.2-14.7 SEC INR Comment 1.0 0.8-1.4 Activated Partial Thromboplast Time 30 24-35 SEC D-Dimer 0.45 0.00-0.49 UG/ML Sodium Level 143 135-145 MMOL/L Potassium Level 4.4 3.6-5.0 MMOL/L Chloride Level 105 98-107 MMOL/L Carbon Dioxide Level 26 21-32 MMOL/L Anion Gap 12 5-14 MMOL/L Blood Urea Nitrogen 27 H 7-18 MG/DL Creatinine 1.01 0.60-1.30 MG/DL Estimat Glomerular Filtration Rate 56 BUN/Creatinine Ratio 27 Glucose Level 120 H 70-105 MG/DL Calcium Level 9.0 8.5-10.1 MG/DL Corrected Calcium 9.1 8.5-10.1 MG/DL Total Bilirubin 0.4 0.1-1.0 MG/DL Aspartate Amino Transf (AST/SGOT) 29 5-34 U/L Alanine Aminotransferase (ALT/SGPT) 32 0-55 U/L Alkaline Phosphatase 96 40-136 U/L Troponin I < 0.028 <0.028 NG/ML Total Protein 7.2 6.4-8.2 GM/DL Albumin 3.9 3.2-4.5 GM/DL Urine Color YELLOW Urine Clarity CLEAR Urine pH 5.0 5-9 Urine Specific [place] 1.020 1.016-1.022 Urine Protein NEGATIVE NEGATIVE Urine Glucose (UA) NEGATIVE NEGATIVE Urine Ketones NEGATIVE NEGATIVE Urine Nitrite NEGATIVE NEGATIVE Urine Bilirubin NEGATIVE NEGATIVE Urine Urobilinogen 0.2 < = 1.0 MG/DL Urine Leukocyte Esterase NEGATIVE NEGATIVE Urine RBC (Auto) NEGATIVE NEGATIVE Urine RBC NONE /HPF Urine WBC NONE /HPF Urine Squamous Epithelial Cells RARE /HPF Urine Crystals NONE /LPF Urine Bacteria NEGATIVE /HPF Urine Casts NONE /LPF Urine Mucus NEGATIVE /LPF Urine Culture Indicated NO My Orders Orders - DOT LORENZ Cbc With Automated Diff (11/08/21 13:40) Protime With Inr (11/08/21 13:40) Partial Thromboplastin Time (11/08/21 13:40) Comprehensive Metabolic Panel (11/08/21 13:40) Fibrin Degradation Products (11/08/21 13:40) Troponin I Mya (11/08/21 13:40) Ua Culture If Indicated (11/08/21 13:40) Ekg Tracing (11/08/21 13:40) Nothing By Mouth (11/08/21 Lunch) Accucheck Stat ONCE (11/08/21 13:40) Ed Iv/Invasive Line Start (11/08/21 13:40) Ed Iv/Invasive Line Start (11/08/21 13:40) Vital Signs Stroke Patient Q15M (11/08/21 13:40) Ct Head Wo-R/O Stroke (11/08/21 13:40) O2 (11/08/21 13:40) Intake & Output ,14, (11/08/21 13:40) Monitor-Rhythm Ecg Trace Only (11/08/21 13:40) Dysphagia Screening Tool Q10MX1 (11/08/21 13:40) Post Thrombolytic Adminstratio (11/08/21 13:40) Lipid Panel (11/09/21 06:00) Chest 1 View, Ap/Pa Only (11/08/21 13:40) Ct Angio Head/Neck (11/08/21 14:01) Cbc With Automated Diff (11/08/21 14:06) Protime With Inr (11/08/21 14:06) Comprehensive Metabolic Panel (11/08/21 14:06) Fibrin Degradation Products (11/08/21 14:06) Troponin I [place] (11/08/21 14:06) Accucheck Stat ONCE (11/08/21 14:06) Ed Iv/Invasive Line Start (11/08/21 14:06) Ed Iv/Invasive Line Start (11/08/21 14:06) Vital Signs Stroke Patient Q15M (11/08/21 14:06) O2 (11/08/21 14:06) Intake & Output 06,14,22 (11/08/21 14:06) Dysphagia Screening Tool Q10MX1 (11/08/21 14:06) Post Thrombolytic Adminstratio (11/08/21 14:06) Iohexol Injection (Omnipaque 350 Mg/Ml 1 (11/08/21 14:15) Received Contrast (Hold Metformin- Contr (11/08/21 14:15) Ns (Ivpb) (Sodium Chloride 0.9% Ivpb Bag (11/08/21 14:15) Sodium Chloride Flush (Catheter Flush Sy (11/08/21 14:15) Ed Admission (Communication) (11/08/21 15:32) Medications Given in ED Current Medications Medications Dose Ordered Sig/Trevon Route Start Time Stop Time Status Last Admin Dose Admin Iohexol 75 ml ONCE ONCE IV 11/08/21 14:15 11/08/21 14:16 DC 11/08/21 14:35 75 ML Sodium Chloride 10 ml NEEDED PRN IV 11/08/21 14:15 11/08/21 14:35 10 ML Sodium Chloride 100 ml ONCE ONCE IV 11/08/21 14:15 11/08/21 14:16 DC 11/08/21 14:35 80 ML Vital Signs/I&O 11/08/21 13:38 Temp 36.3 Pulse 77 Resp 16 B/P (MAP) 213/115 (147) Pulse Ox 92 O2 Delivery Room Air Blood Pressure Mean: 147 Progress Progress Note : Time: 15:00 Progress Note Discussed the case with family and they are in agreement with recommendations from stroke neurology on-call at [facility] not to pursue tPA. Her blood pressure has come down significantly to 1 80-[address] angiogram obtained. She is okay with doing an observation for telemetry and management of risk factors. Initial ECG Impression Date: Nov 08, 2021 Initial ECG Impression Time: 13:45 Initial ECG Rate: 80 Initial ECG Rhythm: Normal Sinus Initial ECG Intervals: Normal Initial ECG Impression: Normal Comment Left bundle branch block, normal sinus rhythm, PAC noted. No clinically relevant ST elevation or depression. No Sgarbossa criteria noted. Diagnostic Imaging Diagonstic Imaging: Xray Plain Films/CT/US/NM/MRI: chest Reviewed: Reviewed by Me Diagonstic Imaging: CT Plain Films/CT/US/NM/MRI: head Comments No acute intracranial bleed, tumor, midline shift, mass-effect or calvarial fracture. NAME: LOKI LOPEZ [facility] REC#: [id number] PT STATUS: REG ER : 1940 PHYSICIAN: DOT LORENZ MD ADMIT DATE: 11/08/21/ER Draft Date of Exam:11/08/21 CT HEAD WO-R/O STROKE PROCEDURE: CT head wo r/o stroke. TECHNIQUE: Multiple contiguous axial images were obtained through the brain without the use of intravenous contrast. Auto Exposure Controls were utilized during the CT exam to meet ALARA standards for radiation dose reduction. INDICATION: Stroke. Left facial droop. Weakness. COMPARISON: None. FINDINGS: Moderate generalized parenchymal volume loss. No CT evidence of a territorial infarction. No intracranial hemorrhage, mass effect, hydrocephalus or extra-axial fluid collections. Paranasal sinuses and mastoids are clear. Osseous structures are intact. IMPRESSION: No acute intracranial CT findings. Dictated on workstation # [id number] Dict: 11/08/21 1404 Trans: 11/08/21 1408 [facility] [id number] Interpreted by: CLARKE GREEN MD Electronically signed by: Reviewed: Reviewed by Ma Diagonstic Imaging: CT (Angiogram) Plain Films/CT/US/NM/MRI: head (Head and neck) Comments [facility]. [place], [place] [facility]. [place], [place] NAME: LOKI LOPEZ [facility] REC#: [id number] PT STATUS: REG ER : 1940 PHYSICIAN: DOT LORENZ MD ADMIT DATE: 11/08/21/ER Draft Date of Exam:11/08/21 CT ANGIO HEAD/NECK PROCEDURE: CT angiography of the head and CT angiography of the neck with and without contrast. TECHNIQUE: Contiguous non-contrast images were obtained from the skull base through the vertex. After intravenous contrast administration, helical CT angiography of the neck was performed. Source data was reformatted into 3D MIP projections. Delayed post-contrast acquisition was also obtained. Auto Exposure Controls were utilized during the CT exam to meet ALARA standards for radiation dose reduction. INDICATION: Stroke. Left-sided weakness. COMPARISON: CT head without contrast 11/08/2021. FINDINGS: Delayed post-contrast imaging continues to demonstrate no CT evidence of a territorial infarction. No large intracranial hemorrhage or extra-axial fluid collections. Moderate generalized volume loss. No abnormal intracranial enhancement. CTA is limited by respiratory motion. Conventional aortic arch. Calcified atherosclerotic disease results in 70-89% narrowing of the right internal carotid artery origin. There is less than 50% narrowing of the left internal carotid artery origin. No large vessel occlusions. The basilar, bilateral vertebral, common carotid, anterior cerebral, middle cerebral, and posterior cerebral arteries demonstrate no high-grade narrowing, aneurysm, or dissection. The dural venous sinuses are normally opacified. Mild spondylotic changes in the cervical spine. No acute osseous findings. The lung apices are clear. Visualized paravertebral soft tissues are grossly unremarkable. IMPRESSION: 1. No large vessel occlusion. 2. Atherosclerotic disease results in 70-89% narrowing of the right internal carotid artery origin. There is less than 50% narrowing of the left internal carotid artery origin. Dictated on workstation # [id number] Dict: 11/08/21 1451 Trans: 11/08/21 1502 [id number] Interpreted by: CLARKE GREEN MD Electronically signed by: Reviewed: Reviewed by Me Consults : Consults Notes Dr. Stacy: Mild Ischemic attack, if no other symptoms then would rec the risk of bleeds exceeds the potential benefits and would recommend against tPA. She would recommend a CT angiogram of the head and neck looking for large vessel occlusion. Departure Communication (Admissions) Time/Spoke to Admitting Phy: 15:[address] Lentz 1533: Dr Lentz agrees to observe the patient for MRI in the morning and CVA risk factor management and restratification. She will put in queued orders. Time/Spoke to Consulting Phy: 15:12 Left . 1518: Dr Forde: Discussed case and he agrees to consult on the case. Impression Primary Impression: CVA (cerebral vascular accident) Qualified Codes: I63.231 - Cerebral infarction due to unspecified occlusion or stenosis of right carotid arteries Additional Impression: TIA (transient ischemic attack) Disposition: ADMITTED INPATIENT Condition: Stable Admissions Decision to Admit Reason: Admit from ER (General) Decision to Admit/Date: Nov 08, 2021 Time/Decision to Admit Time: 15:10 Departure-Patient Inst. Referrals: ELZA FERGUSON DO (PCP/Family) Primary Care Physician DOT LORENZ Nov 08, 2021 13:55
[2021-11-08 14:00] LABS: BASOPHILS % (AUTO) 1 % (0-10); EOSINOPHILS # (AUTO) 0.1 10^3/uL (0.0-0.3); EOSINOPHILS % (AUTO) 2 % (0-10); HEMATOCRIT 38 % (35-52); HEMOGLOBIN 11.6 g/dL (11.5-16.0); LYMPHOCYTES # (AUTO) 1.4 10^3/uL (1.0-4.0); LYMPHOCYTES % (AUTO) 33 % (12-44); MEAN CORPUSCULAR HEMOGLOBIN 31 pg (25-34); MEAN CORPUSCULAR HGB CONC 31 g/dL (32-36); MEAN CORPUSCULAR VOLUME 101 fL (80-99); MEAN PLATELET VOLUME 10.7 fL (9.0-12.2); MONOCYTES # (AUTO) 0.4 10^3/uL (0.0-1.0); MONOCYTES % (AUTO) 9 % (0-12); NEUTROPHILS # (AUTO) 2.3 10^3/uL (1.8-7.8); NEUTROPHILS % (AUTO) 55 % (42-75); PLATELET COUNT 135 10^3/uL (130-400); WHITE BLOOD COUNT 4.1 10^3/uL (4.3-11.0)
--- NOTE | 2021-11-08 14:08 | Diagnostic Imaging Report ---
PROCEDURE: CT head wo r/o stroke. TECHNIQUE: Multiple contiguous axial images were obtained through the brain without the use of intravenous contrast. Auto Exposure Controls were utilized during the CT exam to meet ALARA standards for radiation dose reduction. INDICATION: Stroke. Left facial droop. Weakness. COMPARISON: None. FINDINGS: Moderate generalized parenchymal volume loss. No CT evidence of a territorial infarction. No intracranial hemorrhage, mass effect, hydrocephalus or extra-axial fluid collections. Paranasal sinuses and mastoids are clear. Osseous structures are intact. IMPRESSION: No acute intracranial CT findings. Dictated by: Dictated on workstation # [id number]
[2021-11-08 14:13] LABS: ALBUMIN 3.9 GM/DL (3.2-4.5)
[2021-11-08 14:14] LABS: CHLORIDE 105 MMOL/L (98-107); POTASSIUM 4.4 MMOL/L (3.6-5.0); SODIUM 143 MMOL/L (135-145)
[2021-11-08] MEDS ORDERED: IOHEXOL 350 MG/ML 100 ML (OMNIPAQUE 350) VIAL IV ONE (14:15)
[2021-11-08] MEDS ORDERED: HOLD METFORMIN - RECEIVED CONTRAST 20 ML VIAL IV SCH (14:15)
[2021-11-08] MEDS ORDERED: CATHETER FLUSH 10 ML SYR IV PRN (14:15)
[2021-11-08] MEDS ORDERED: NS 100 ML (IVPB) BAG IV ONE (14:15)
[2021-11-08 14:16] LABS: GLUCOSE 120 MG/DL (70-105); TOTAL PROTEIN 7.2 GM/DL (6.4-8.2)
[2021-11-08 14:17] LABS: BILIRUBIN,URINE NEGATIVE (NEGATIVE); CLARITY,URINE CLEAR; COLOR,URINE YELLOW; GLUCOSE, URINE (UA) NEGATIVE (NEGATIVE); KETONES,URINE NEGATIVE (NEGATIVE); LEUKOCYTE ESTERASE ,URINE NEGATIVE (NEGATIVE); NITRITE,URINE NEGATIVE (NEGATIVE); PROTEIN,URINE NEGATIVE (NEGATIVE)
[2021-11-08 14:17] LABS: CARBON DIOXIDE 26 MMOL/L (21-32)
[2021-11-08 14:18] LABS: BILIRUBIN,TOTAL 0.4 MG/DL (0.1-1.0)
--- NOTE | 2021-11-08 14:18 | Diagnostic Imaging Report ---
Indication: Stroke protocol. Time of Exam: 2:08 PM Correlation is made with prior chest from 10/11/2021. Heart is enlarged but stable. Lungs appear to be clear. No infiltrates are seen. There is no failure. No effusion or pneumothorax is identified. IMPRESSION: Cardiomegaly. No other significant abnormality is detected. Dictated by: Dictated on workstation # [id number]
[2021-11-08 14:20] LABS: ALKALINE PHOSPHATASE 96 U/L (40-136); CREATININE SERUM 1.01 MG/DL (0.60-1.30); GFR ESTIMATED 56
[2021-11-08 14:21] LABS: BUN/CREATININE RATIO 27; FIBRIN DEGRADATION PRODUCTS 0.45 UG/ML (0.00-0.49); PROTHROMBIN TIME PATIENT 13.3 SEC (12.2-14.7)
[2021-11-08 14:23] LABS: ALANINE AMINOTRANSFERASE 32 U/L (0-55)
[2021-11-08 14:24] LABS: BACTERIA,URINE NEGATIVE /HPF; SQUAMOUS EPITHELIAL CELL,UR RARE /HPF
--- NOTE | 2021-11-08 15:02 | Diagnostic Imaging Report ---
PROCEDURE: CT angiography of the head and CT angiography of the neck with and without contrast. TECHNIQUE: Contiguous non-contrast images were obtained from the skull base through the vertex. After intravenous contrast administration, helical CT angiography of the neck was performed. Source data was reformatted into 3D MIP projections. Delayed post-contrast acquisition was also obtained. Auto Exposure Controls were utilized during the CT exam to meet ALARA standards for radiation dose reduction. INDICATION: Stroke. Left-sided weakness. COMPARISON: CT head without contrast 11/08/2021. FINDINGS: Delayed post-contrast imaging continues to demonstrate no CT evidence of a territorial infarction. No large intracranial hemorrhage or extra-axial fluid collections. Moderate generalized volume loss. No abnormal intracranial enhancement. CTA is limited by respiratory motion. Conventional aortic arch. Calcified atherosclerotic disease results in 70-89% narrowing of the right internal carotid artery origin. There is less than 50% narrowing of the left internal carotid artery origin. No large vessel occlusions. The basilar, bilateral vertebral, common carotid, anterior cerebral, middle cerebral, and posterior cerebral arteries demonstrate no high-grade narrowing, aneurysm, or dissection. The dural venous sinuses are normally opacified. Mild spondylotic changes in the cervical spine. No acute osseous findings. The lung apices are clear. Visualized paravertebral soft tissues are grossly unremarkable. IMPRESSION: 1. No large vessel occlusion. 2. Atherosclerotic disease results in 70-89% narrowing of the right internal carotid artery origin. There is less than 50% narrowing of the left internal carotid artery origin. Dictated by: Dictated on workstation # [id number]
--- NOTE | 2021-11-08 17:26 | History & Physical-Hospitalist ---
JEF BROWN MED STUDENT 11/08/21 1726: History of Present Illness HPI/Chief Complaint CC: Cerebrovascular accident HPI: Miss Fritz is an 80 yo F, with a pmh including COPD, hypertension, hyperlipidemia, presented to the ED with L sided weakness. Her last normal time was around 1100 this morning, according to her granddaughter. At noon she was visited by physical therapy, who initially noticed the facial drooping. When her nurse arrived at 1300, there had not been any improvement and she was taken to the ED. Her CT head was negative for any intracranial hemorrhages. CTA revealed calcified atherosclerotic disease in the right internal carotid artery, resulting in 70-89% narrowing. At this time, Loki is feeling okay and denies any pain. Also denies headaches, blurry vision, other vision changes, dizziness, chest pain, palpitations, nause, vomiting, diarrhea, constipation. She does endorse shortness of breath and cough from her COPD. Source: patient, family (daughter and granddaughter ) Exam Limitations: no limitations Date Seen 11/08/21 Time Seen by a Provider: 04:00 Attending Physician Maya Lentz DO PCP Jae Vences DO Referring Physician Date of Admission Nov 08, 2021 at 16:12 Home Medications & Allergies Home Medications Reviewed patient Home Medication Reconciliation performed by pharmacy medication reconciliations computer systems technician and/or nursing. Patients Allergies have been reviewed. Allergies Allergies Coded Allergies cortisone (Verified Allergy, Unknown, 01/30/07) diphenhydramine (Verified Allergy, Unknown, 01/30/07) penicillin G (Verified Allergy, Unknown, 07/12/21) The patient is unaware that she has a penicillin allergy. She does not remember ever taking it and if she did what the reaction was. It has not been recently. Past Mxvqiub-Njwxmh-Nsgfkh Hx Patient Social History Employed/Student: retired Tobacco Use?: No Use of E-Cig and/or Vaping dev: No Substance use?: No Alcohol Use?: No Immunizations Up To Date Date of Influenza Vaccine: Apr 22, 2020 First/Initial COVID19 Vaccinat: unknown date but did get vaccine per patient Second COVID19 Vaccination Taurus: unknown date but did get vaccine per patient Tetanus Booster (TDap): Unknown PED Vaccines UTD: Yes Date of Pneumonia Vaccine: Mar 23, 2016 Seasonal Allergies Seasonal Allergies: Yes Current Status Primary Language: Thai Preferred Spoken Language: Thai Past Medical History Surgeries: Section, Gallbladder, Hysterectomy, Oophorectomy, Orthopedic (Hip replacement June of 2021), Tonsillectomy Asthma, COPD Cardiomyopathy, Hypertension Sexually Transmitted Disease: No UTI-Chronic Gastroesophageal Reflux Arthritis Blood Disorders: Yes (ANEMIA) Adverse Reaction/Blood Tranf: No PMHx: HTN CHF SurgHx: Cholecystectomy C section Hysterectomy Breast biopsy Family Medical History No Pertinent Family Hx, Cancer, COPD, Diabetes, Hypertension Review of Systems Constitutional: No chills, No dizziness, No fever; weakness EENTM: No hearing loss, No blurred vision, No double vision Respiratory: cough, short of breath Cardiovascular: No chest pain, No edema, No palpitations Gastrointestinal: No abdominal pain, No constipation, No diarrhea, No nausea, No vomiting Genitourinary: no symptoms reported Musculoskeletal: muscle weakness (Left sided ) Skin: change in color (Left posterior hand, bruising unresolved from last hospital stay ) Physical Exam Physical Exam Vital Signs Vital Signs - First Documented 11/08/21 13:38 Temp 36.3 Pulse 77 Resp 16 B/P (MAP) 213/115 (147) Pulse Ox 92 O2 Delivery Room Air Capillary Refill : Less Than 3 Seconds Height, Weight, BMI Height: 5'4.00" Weight: 188lbs. 0.0oz. 85.428648ji; 31.00 BMI Method:Stated General Appearance: No Apparent Distress, WD/WN HEENT: PERRL/EOMI, Moist Mucous Membranes; No Scleral Icterus (L), No Scleral Icterus (R) Neck: Non Tender, Supple; No Lymphadenopathy (L), No Lymphadenopathy (R) Respiratory: No Accessory Muscle Use, Decreased Breath Sounds, Respiratory Distress (mild ), Wheezing Cardiovascular: Regular Rate, Rhythm, No Edema, No Murmur, Normal Peripheral Pulses Gastrointestinal: Normal Bowel Sounds, Non Tender, Soft Extremity: Normal Capillary Refill, Other Neurologic/Psychiatric: Alert, Oriented x3, Motor Weakness (LUE and LLE, L perioral facial droop ) Skin: Warm/Dry, Ecchymosis (Notable at posterior L hand, previous IV site ) Lymphatic: No Adenopathy Comments LLE +3 strength RLE +4 strength LUE +3 strength RUE +4 strength No sensory deficits, symmetrical to RUE and RLE Results Results/Procedures Labs Laboratory Tests 11/08/21 13:56 Patient resulted labs reviewed. Imaging NAME: LOKI LOPEZ [facility] REC#: [id number] PT STATUS: REG ER : 1940 PHYSICIAN: DOT LORENZ MD ADMIT DATE: 11/08/21/ER Draft Date of Exam:11/08/21 CT HEAD WO-R/O STROKE PROCEDURE: CT head wo r/o stroke. TECHNIQUE: Multiple contiguous axial images were obtained through the brain without the use of intravenous contrast. Auto Exposure Controls were utilized during the CT exam to meet ALARA standards for radiation dose reduction. INDICATION: Stroke. Left facial droop. Weakness. COMPARISON: None. FINDINGS: Moderate generalized parenchymal volume loss. No CT evidence of a territorial infarction. No intracranial hemorrhage, mass effect, hydrocephalus or extra-axial fluid collections. Paranasal sinuses and mastoids are clear. Osseous structures are intact. IMPRESSION: No acute intracranial CT findings. Dictated on workstation # [id number] Dict: 11/08/21 1404 Trans: 11/08/21 1408 [facility] [id number] Interpreted by: CLARKE GREEN MD Electronically signed by: NAME: LOKI LOPEZ [facility] REC#: [id number] PT STATUS: REG ER : 1940 PHYSICIAN: DOT LORENZ MD ADMIT DATE: 11/08/21/ER Draft Date of Exam:11/08/21 CT ANGIO HEAD/NECK PROCEDURE: CT angiography of the head and CT angiography of the neck with and without contrast. TECHNIQUE: Contiguous non-contrast images were obtained from the skull base through the vertex. After intravenous contrast administration, helical CT angiography of the neck was performed. Source data was reformatted into 3D MIP projections. Delayed post-contrast acquisition was also obtained. Auto Exposure Controls were utilized during the CT exam to meet ALARA standards for radiation dose reduction. INDICATION: Stroke. Left-sided weakness. COMPARISON: CT head without contrast 11/08/2021. FINDINGS: Delayed post-contrast imaging continues to demonstrate no CT evidence of a territorial infarction. No large intracranial hemorrhage or extra-axial fluid collections. Moderate generalized volume loss. No abnormal intracranial enhancement. CTA is limited by respiratory motion. Conventional aortic arch. Calcified atherosclerotic disease results in 70-89% narrowing of the right internal carotid artery origin. There is less than 50% narrowing of the left internal carotid artery origin. No large vessel occlusions. The basilar, bilateral vertebral, common carotid, anterior cerebral, middle cerebral, and posterior cerebral arteries demonstrate no high-grade narrowing, aneurysm, or dissection. The dural venous sinuses are normally opacified. Mild spondylotic changes in the cervical spine. No acute osseous findings. The lung apices are clear. Visualized paravertebral soft tissues are grossly unremarkable. IMPRESSION: 1. No large vessel occlusion. 2. Atherosclerotic disease results in 70-89% narrowing of the right internal carotid artery origin. There is less than 50% narrowing of the left internal carotid artery origin. Dictated on workstation # [id number] Dict: 11/08/21 1451 Trans: 11/08/21 1502 [id number] Interpreted by: CLARKE GREEN MD Electronically signed by: Assessment/Plan Admission Diagnosis CC; Cerebrovascular accident Assessment and Plan Assessment - CVA - Left sided motor weakness - L sided facial droop - COPD - leukopenia - anemia - hypertension - hyperlipidemia Plan - Admission with intensive care - MRI head in the morning - Anti-hypertensives - Supportive care - PT/OT evaluation - electrolyte replacement as needed - regular diet as tolerated Clinical Quality Measures Stroke: Date of last known well: Nov 08, 2021 Time of last known well: 11:00 Symptoms onset unknown: No MAYA LENTZ DO 11/10/21 0459: History of Present Illness HPI/Chief Complaint CC: Left sided drooping HPI: This is an 80 yr old WF known to us from prior hospital stays due to exacerbation of COPD. She presented to the ER with left sided weakness. Pt underwent stroke protocol, CT scan showed no evidence of any CVA. So an MRI was obtained this morning showing no evidence of any acute process. Left sided wea kness is resolved and daughter thinks the left facial drooping is an ongoing chronic issue also. Her high BP was an issue so we did go ahead and add bp medication of Amlodipine and pt was improved at time of discharge. Source: patient, family (daughter and granddaughter ) Exam Limitations: no limitations Past Keypwxb-Oddpun-Mmblid Hx Patient Social History Marrital Status: single Employed/Student: retired Smoking Status: Former Smoker Past Medical History Pneumonia, COPD High Cholesterol, Hypertension Hearing Impairment: Hard of Hearing Review of Systems Constitutional: see HPI, weakness EENTM: no symptoms reported Respiratory: no symptoms reported Cardiovascular: no symptoms reported Gastrointestinal: no symptoms reported Genitourinary: no symptoms reported Musculoskeletal: no symptoms reported Skin: no symptoms reported Psychiatric/Neurological: Weakness All Other Systems Reviewed Negative Unless Noted: Yes Physical Exam Physical Exam General Appearance: No Apparent Distress, Chronically ill Eyes: Right Eye Normal Inspection, Right Eye PERRL HEENT: PERRL/EOMI, Normal ENT Inspection, Pharynx Normal, Moist Mucous Membranes Neck: Full Range of Motion, Normal Inspection, Non Tender Respiratory: Chest Non Tender, Lungs Clear, Normal Breath Sounds, No Accessory Muscle Use, No Respiratory Distress Cardiovascular: Regular Rate, Rhythm, No Edema, No Gallop, No JVD, No Murmur, Normal Peripheral Pulses Gastrointestinal: Normal Bowel Sounds, No Organomegaly, No Pulsatile Mass, Non Tender, Soft Back: Normal Inspection, No CVA Tenderness, No Vertebral Tenderness Extremity: Normal Capillary Refill, Normal Inspection, Normal Range of Motion, Non Tender, No Calf Tenderness, No Pedal Edema Neurologic/Psychiatric: Alert, Oriented x3, No Motor/Sensory Deficits, Normal Mood/Affect, Facial Droop, Motor Weakness (LUE and LLE, L perioral facial droop ) Skin: Normal Color, Warm/Dry Lymphatic: No Adenopathy Assessment/Plan Admission Diagnosis Assessment: CVA versus TIA versus hypertensive neurological deficit COPD Advanced age Plan: Stroke protocol MRI Admission Status: Observation Diagnosis/Problems Diagnosis/Problems (1) TIA (transient ischemic attack) Status: Acute Supervisory-Addendum Brief Verification & Attestation Participated in pt care: history, MDM, physical Personally performed: exam, history, MDM, supervision of care Care discussed with: Medical Student Procedures: n/a Results interpretation: Verified all documentation Verification and Attestation of Medical Student E/M Service A medical student performed and documented this service in my presence. I reviewed and verified all information documented by the medical student and made modifications to such information, when appropriate. I personally performed the physical exam and medical decision making. Maya Lentz, Nov 10, 2021,04:59 JEF BROWN MED STUDENT Nov 08, 2021 17:26 MAYA LENTZ DO Nov 10, 2021 04:59
[2021-11-08 18:00] VITALS: BP 187/92
[2021-11-08] MEDS ORDERED: ANTACID SUSP 30 ML UDC (MYLANTA) PO PRN (18:00)
[2021-11-08] MEDS ORDERED: polyethylene glycoL POWDER 17 GM (MIRALAX) PACK PO PRN (18:00)
[2021-11-08] MEDS ORDERED: CALCIUM CARBONATE 500 MG (TUMS) TAB.CHEW PO PRN (18:00)
[2021-11-08] MEDS ORDERED: BISACODYL 10 MG SUPP (DULCOLAX) PR PRN (18:00)
[2021-11-08] MEDS ORDERED: MELATONIN 3 MG TABLET PO PRN (18:00)
[2021-11-08] MEDS ORDERED: ENOXAPARIN 40 MG/0.4 ML (LOVENOX) SYR SC SCH (18:00)
[2021-11-08] MEDS ORDERED: ONDANSETRON 4 MG (ZOFRAN) ORAL DISSOLVE TAB PO PRN (18:00)
[2021-11-08] MEDS ORDERED: morphine INJ 4 MG/ML 1 ML (VIAL/SYRINGE) IV PRN (18:00)
[2021-11-08] MEDS ORDERED: ACETAMINOPHEN 325 MG TABLET PO PRN (18:00)
[2021-11-08] MEDS ORDERED: MILK OF MAGNESIA 400 MG/5 ML 30 ML UDC PO PRN (18:00)
[2021-11-08] MEDS ORDERED: LACTULOSE SYRUP 10GM/15ML (ENULOSE) 30ML UDC PO PRN (18:00)
[2021-11-08] MEDS ORDERED: ONDANSETRON 4 MG/2 ML (SDV) Z0FRAN IV PRN (18:00)
[2021-11-08] MEDS: NS IV 1000 ML 1,000 ML IV SCH (18:14)
[2021-11-08 19:07] VITALS: BP 187/92
[2021-11-08] MEDS ORDERED: RT-ALBUTEROL/IPRATROPIUM 3 ML (DUONEB) VIAL INH PRN (19:30)
[2021-11-08] MEDS ORDERED: hydrALAZINE (APRESOLINE) 25 MG TAB PO PRN (20:30)
[2021-11-08] MEDS ORDERED: cloNIDine 0.1 MG (CATAPRES) TAB PO PRN (20:30)
[2021-11-08] MEDS ORDERED: amLODIPine 5 MG (NORVASC) TAB PO ONE (20:30)
[2021-11-08] MEDS ORDERED: amLODIPine 5 MG (NORVASC) TAB ONE (20:33)
[2021-11-08] MEDS: DOCUSATE SODIUM 100 MG (COLACE) CAP PO SCH (20:36)
[2021-11-08] MEDS: SENNOSIDES 8.6 MG (SENOKOT) TAB PO SCH (20:36)
[2021-11-08 20:37] VITALS: BP 180/85
[2021-11-08] MEDS: inSUlin ASPART (NovoLOG) 1 UNIT/0.01 ML (CHARGE PER UNIT) SC SCH (20:39)
[2021-11-08 23:11] VITALS: BP 185/89
[2021-11-09 00:25] VITALS: BP 146/56
[2021-11-09 03:43] VITALS: BP 116/77
[2021-11-09] MEDS: inSUlin ASPART (NovoLOG) 1 UNIT/0.01 ML (CHARGE PER UNIT) SC SCH ×2 (05:08→11:40)
[2021-11-09 05:45] LABS: EOSINOPHILS # (AUTO) 0.1 10^3/uL (0.0-0.3); EOSINOPHILS % (AUTO) 3 % (0-10); MEAN CORPUSCULAR VOLUME 100 fL (80-99)
[2021-11-09 05:47] LABS: BASOPHILS % (AUTO) 0 % (0-10); HEMATOCRIT 32 % (35-52); HEMOGLOBIN 9.8 g/dL (11.5-16.0); LYMPHOCYTES # (AUTO) 1.4 10^3/uL (1.0-4.0); LYMPHOCYTES % (AUTO) 34 % (12-44); MEAN CORPUSCULAR HEMOGLOBIN 31 pg (25-34); MEAN CORPUSCULAR HGB CONC 31 g/dL (32-36); MEAN PLATELET VOLUME 10.6 fL (9.0-12.2); MONOCYTES # (AUTO) 0.4 10^3/uL (0.0-1.0); MONOCYTES % (AUTO) 9 % (0-12); NEUTROPHILS # (AUTO) 2.1 10^3/uL (1.8-7.8); NEUTROPHILS % (AUTO) 53 % (42-75); PLATELET COUNT 126 10^3/uL (130-400)
[2021-11-09 05:53] LABS: ALBUMIN 3.4 GM/DL (3.2-4.5); POTASSIUM 3.6 MMOL/L (3.6-5.0)
[2021-11-09 05:54] LABS: CALCIUM 8.6 MG/DL (8.5-10.1)
[2021-11-09 05:56] LABS: TOTAL PROTEIN 6.1 GM/DL (6.4-8.2)
[2021-11-09 05:58] LABS: BILIRUBIN,TOTAL 0.4 MG/DL (0.1-1.0)
[2021-11-09 05:59] LABS: CREATININE SERUM 0.99 MG/DL (0.60-1.30)
--- NOTE | 2021-11-09 08:37 | Speech Therapy Progress Note ---
Therapy Progress Note Speech pathology attempted consult completion at 0836. At this time, the patient is undergoing evaluation by physical therapy. ST to reattempt the evaluation as able and appropriate. Thank you for the consultation. ANDREE ARTEAGA Nov 09, 2021 08:37
[2021-11-09 08:42] VITALS: BP 138/77
--- NOTE | 2021-11-09 08:57 | Physical Therapy Evaluation ---
PT Evaluation-General Medical Diagnosis Admission Date Nov 08, 2021 at 16:12 Medical Diagnosis: CVA, left sided weakness Onset Date: Nov 08, 2021 Therapy Diagnosis Therapy Diagnosis: Gait deficit, strength deficit Height/Weight Height (Feet): 5 Height (Inches): 4.00 Weight (Pounds): 188 Weight (Ounces): 0.0 Precautions Precautions/Isolations: Fall Prevention, Standard Precautions Weight Bear Status Right Lower Extremity: Right Full Weight Bearing Left Lower Extremity: Left Full Weight Bearing Referral Physician: Dr. Hoskins Reason for Referral: Evaluation/Treatment Medical History Pertinent Medical History: Arthritis, COPD, Heart Failure, HTN Social History Home: Single Level Current Living Status: Other Family Entry Into Home: Stairs With Railing PT Steps Into Home: 2 Prior Prior Level of Function SCALE: Activities may be completed with or without assistive devices. 8-Vhrcrwzxep-copmgfm completes the activity by him/herself with no assistance from a helper. 5-Set-up or Clean-up Assistance-helper sets up or cleans up; patient completes activity. [place] assists only prior to or following the activity. 4-Supervision or Touching Assistance-helper provides verbal cues and/or touching/steadying and/or contact guard assistance as patient completes activity. Assistance may be provided throughout the activity or intermittently. 3-Partial/Moderate Assistance-helper does LESS THAN HALF the effort. [place] lifts, holds or supports trunk or limbs, but provides less than half the effort. 2-Substantial/Maximal Assistance-helper does MORE THAN HALF the effort. [place] lifts or holds trunk or limbs and provides more than half the effort. 3-Ybnvgbtks-caohws does ALL the effort. Patient does none of the effort to complete the activity. Or, the assistance of 2 or more helpers is required for the patient to complete the activity. If activity was not attempted, code reason: 7-Patient Refused. 9-Not Applicable-not attempted and the patient did not perform the activity before the current illness, exacerbation or injury. 10-Not Attempted due to Environmental Limitations-(lack of equipment, weather restraints, etc.). 88-Not Attempted due to Medical Conditions or Safety Concerns. Bed Mobility: 6 Transfers (B,C,W/C): 6 Gait: 6 Stairs: 6 Indoor Mobility (Ambulation): Independent Stairs: Independent Prior Devices Use: Walker PT Evaluation-Current Subjective Patient lying supine in bed upon PT arrival, agreeable to treatment. Patient reports 0/10 pain currently. Objective Patient Orientation: Person, Place, Time, Situation Attachments: IV ROM/Strength ROM Lower Extremities WFLs Strength Lower Extremities 3+/5 bilaterally all planes Neuromuscular (Tone, Coordination, Reflexes) coordination compromised in bilateral LEs Sensory Vision: Functional Hearing: Functional Sensation Right Lower Extremit: Intact Sensation Left Lower Extremity: Intact Transfers Roll Left to Right (QC): 4 Sit to Lying (QC): 4 Lying to Sitting/Side of Bed(Q: 4 Sit to Stand (QC): 3 (mod) Chair/Ncx-yx-Ntcuq Xfer(QC): 3 (min) Gait Does the Patient Walk?: Yes Mode of Locomotion: Walk Anticipated Mode of Locomotion: Walk Walk 10 feet (QC): 3 Walk 50 ft with 2 Turns(QC): 3 Distance: 50 feet Gait Assistive Device: FWW Balance Sitting Static: Good Sitting Dynamic: Good Standing Static: Fair Standing Dynamic: Fair Assessment/Needs Patient tolerated PT evaluation well. She requires SBA for all observed bed mobility, min A for scooting while sitting in bed and mod A for sit to stand. Patient ambulates 50 feet with FWW, with min a and verbal cues for control of the walker. She repeatedly states "This thing just won't turn", referring to the FWW. Patient ambulates with fair overall gait pattern, rounded shoulders, mild forward trunk posture, and moderate difficulty maneuvering the FWW. Patient in chair post treatment with all needs met, nursing notified, call light in hand, all needs met, and chair alarm activated. Rehab Potential: Good Equipment Needs Unsure at this time. PT Underwriter Goals Mcfp Goals PT Mcfp Goals Time Frame: Nov 18, 2021 Roll Left & Right (QC): 6 Sit to Lying (QC): 6 Lying-Sitting on Side/Bed(QC): 6 Sit to Stand (QC): 5 Chair/Ngf-ge-Kntum Xfer(QC): 5 Toilet Transfer (QC): 5 Does the Patient Walk: Yes Walk 10 feet (QC): 6 Walk 50ft with 2 Turns (QC): 6 Walk 150 ft (QC): 6 1 Step (curb) (QC): 4 4 Steps (QC): 4 PT Plan Problem List Problem List: Activity Tolerance, Functional Strength, Safety, Balance, Gait, Transfer, Bed Mobility, ROM Treatment/Plan Treatment Plan: Continue Plan of Care Treatment Plan: Bed Mobility, Education, Functional Activity Josh, Functional Strength, Gait, Safety, Therapeutic Exercise, Transfers Treatment Duration: December 16, 2021 Frequency: 6 times per week Estimated Hrs Per Day: .25 hour per day Patient and/or Family Agrees t: Yes Safety Risks/Education Patient Education: Gait Training, Transfer Techniques Teaching Recipient: Patient Teaching Methods: Demonstration Response to Teaching: Verbalize Understanding, Return Demonstration Discharge Recommendations Target Placement Home with granddaughter Time/GCodes Time In: 830 Time Out: 855 Total Billed Treatment Time: 25 Total Billed Treatment Visit, ivan Hurtado JOHN A PT Nov 09, 2021 08:57
[2021-11-09] MEDS ORDERED: ASPIRIN 325 MG (5 GR) TABLET PO SCH (09:00)
[2021-11-09] MEDS ORDERED: amLODIPine 5 MG (NORVASC) TAB PO SCH (09:00)
[2021-11-09] MEDS: NS IV 1000 ML 1,000 ML IV SCH (09:06)
[2021-11-09] MEDS: DOCUSATE SODIUM 100 MG (COLACE) CAP PO SCH (09:06)
[2021-11-09] MEDS: SENNOSIDES 8.6 MG (SENOKOT) TAB PO SCH (09:06)
--- NOTE | 2021-11-09 10:02 | Consultation-Cardiology ---
HPI-Cardiology Cardiology Consultation Date of Consultation 11/09/21 Date of Admission Time Seen by Provider: 08:15 Indication: CVA HPI Patient is an 80 y/o female with history of CHF, COPD, HTN, HLP. Presented to the ER yesterday afternoon after home health nurse noted left sided weakness and left facial droop. Denies any chest pain. Complaining of some chronic dyspnea on exertion. Denies any dizziness or lightheadedness. States weakness has resolved, but continues to have left sided facial droop. Home Medications & Allergies Allergies: Coded Allergies: cortisone (Verified Allergy, Unknown, 01/30/07) diphenhydramine (Verified Allergy, Unknown, 01/30/07) penicillin G (Verified Allergy, Unknown, 07/12/21) The patient is unaware that she has a penicillin allergy. She does not remember ever taking it and if she did what the reaction was. It has not been recently. Home Medication List Reviewed: Yes APU-Gxtarz-Fxgsag Hx Patient Social History Marital Status: single Employed/Student: retired Smoking Status: Former Smoker Type Used: Cigarettes 2nd Hand Smoke Exposure: Yes Recent Hopitalizations: No Have you traveled recently?: No Alcohol Use?: No Immunizations Up To Date Tetanus Booster (TDap): Less than 5yrs Date of Pneumonia Vaccine: Mar 23, 2016 Date of Influenza Vaccine: Apr 22, 2020 Past Medical History COPD, HTN, HLP, CHF Family Medical History Significant Family History: No Pertinent Family Hx, Cancer, COPD, Diabetes, Hypertension Review of Systems-General Review of Systems Constitutional: No chills, No dizziness, No fever; weakness EENTM: No hearing loss, No blurred vision, No double vision Respiratory: cough, short of breath Cardiovascular: No chest pain, No edema, No palpitations Gastrointestinal: No abdominal pain, No constipation, No diarrhea, No nausea, No vomiting Genitourinary: no symptoms reported : No Musculoskeletal: muscle weakness (Left sided ) All Other Systems Reviewed Negative Unless Noted: Yes Reviewed Test Results Reviewed Test Results Lab Laboratory Tests 11/08/21 13:45: Glucometer 107 11/08/21 13:56: White Blood Count 4.1L, Red Blood Count 3.71L, Hemoglobin 11.6, Hematocrit 38, Mean Corpuscular Volume 101H, Mean Corpuscular Hemoglobin 31, Mean Corpuscular Hemoglobin Concent 31L, Red Cell Distribution Width 14.7H, Platelet Count 135, Mean Platelet Volume 10.7, Immature Granulocyte % (Auto) 0, Neutrophils (%) (Auto) 55, Lymphocytes (%) (Auto) 33, Monocytes (%) (Auto) 9, Eosinophils (%) (Auto) 2, Basophils (%) (Auto) 1, Neutrophils # (Auto) 2.3, Lymphocytes # (Auto) 1.4, Monocytes # (Auto) 0.4, Eosinophils # (Auto) 0.1, Basophils # (Auto) 0.0, Immature Granulocyte # (Auto) 0.0, Prothrombin Time 13.3, INR Comment 1.0, Activated Partial Thromboplast Time 30, D-Dimer 0.45, Sodium Level 143, Potassium Level 4.4, Chloride Level 105, Carbon Dioxide Level 26, Anion Gap 12, Blood Urea Nitrogen 27H, Creatinine 1.01, Estimat Glomerular Filtration Rate 56, BUN/Creatinine Ratio 27, Glucose Level 120H, Calcium Level 9.0, Corrected Marcos cium 9.1, Total Bilirubin 0.4, Aspartate Amino Transf (AST/SGOT) 29, Alanine Aminotransferase (ALT/SGPT) 32, Alkaline Phosphatase 96, Troponin I < 0.028, Total Protein 7.2, Albumin 3.9 11/08/21 14:15: Urine Color YELLOW, Urine Clarity CLEAR, Urine pH 5.0, Urine Specific [place] 1.020, Urine Protein NEGATIVE, Urine Glucose (UA) NEGATIVE, Urine Ketones NEGATIVE, Urine Nitrite NEGATIVE, Urine Bilirubin NEGATIVE, Urine Urobilinogen 0.2, Urine Leukocyte Esterase NEGATIVE, Urine RBC (Auto) NEGATIVE, Urine RBC NONE, Urine WBC NONE, Urine Squamous Epithelial Cells RARE, Urine Crystals NONE, Urine Bacteria NEGATIVE, Urine Casts NONE, Urine Mucus NEGATIVE, Urine Culture Indicated NO 11/08/21 20:06: Glucometer 161H 11/09/21 04:56: Glucometer 103 11/09/21 05:10: White Blood Count 4.0L, Red Blood Count 3.16L, Hemoglobin 9.8L, Hematocrit 32L, Mean Corpuscular Volume 100H, Mean Corpuscular Hemoglobin 31, Mean Corpuscular Hemoglobin Concent 31L, Red Cell Distribution Width 14.7H, Platelet Count 126L, Mean Platelet Volume 10.6, Immature Granulocyte % (Auto) 0, Neutrophils (%) (Auto) 53, Lymphocytes (%) (Auto) 34, Monocytes (%) (Auto) 9, Eosinophils (%) (Auto) 3, Basophils (%) (Auto) 0, Neutrophils # (Auto) 2.1, Lymphocytes # (Auto) 1.4, Monocytes # (Auto) 0.4, Eosinophils # (Auto) 0.1, Basophils # (Auto) 0.0, Immature Granulocyte # (Auto) 0.0, Percent Immature Platelet Fraction 3.8, Sodium Level 138, Potassium Level 3.6, Chloride Level 101, Carbon Dioxide Level 25, Anion Gap 12, Blood Urea Nitrogen 25H, Creatinine 0.99, Estimat Glomerular Filtration Rate 57, BUN/Creatinine Ratio 25, Glucose Level 99, Calcium Level 8.6, Corrected Calcium 9.1, Total Bilirubin 0.4, Aspartate Amino Transf (AST/SGOT) 26, Alanine Aminotransferase (ALT/SGPT) 28, Alkaline Phosphatase 79, Total Protein 6.1L, Albumin 3.4, Triglycerides Level 186H, Cholesterol Level 162, LDL Cholesterol Direct 103, VLDL Cholesterol 37, HDL Cholesterol 33L Physical Exam Physical Exam Vital Signs Vital Signs - First Documented 11/08/21 11/09/21 13:38 08:09 Temp 36.3 Pulse 77 Resp 16 B/P (MAP) 213/115 (147) Pulse Ox 92 O2 Delivery Room Air O2 Flow Rate 0.00 Capillary Refill : Less Than 3 Seconds Height, Weight, BMI Height: 5'4.00" Weight: 188lbs. 0.0oz. 85.957449ox; 30.82 BMI Method:Stated General Appearance: No Apparent Distress, WD/WN HEENT: PERRL/EOMI, Moist Mucous Membranes; No Scleral Icterus (L), No Scleral Icterus (R) Neck: Non Tender, Supple; No Lymphadenopathy (L), No Lymphadenopathy (R) Respiratory: Chest Non Tender, No Accessory Muscle Use, Decreased Breath Sounds, Wheezing Cardiovascular: Regular Rate, Rhythm, No Edema, No Murmur, Normal Peripheral Pulses Gastrointestinal: Normal Bowel Sounds, Non Tender, Soft Extremity: Normal Capillary Refill Neurologic/Psychiatric: Alert, Oriented x3, Motor Weakness ( L perioral facial droop ) Skin: Warm/Dry, Ecchymosis (Notable at posterior L hand, previous IV site ) Lymphatic: No Adenopathy A/P-Cardiology Admission Diagnosis CVA CHF COPD HTN Assessment/Plan Acute CVA with left sided weakness and facial droop, continues to have facial droop. CTA head and neck showed R ICA stenosis 70-89%, otherwise no acute abno rmality. Planning for MRI this morning. Will consider LINq implantation for further monitoring for underlying arrythmia. Currently on ASA Chronic systolic CHF due to nonischemic cardiomyopathy. Most recent 2D Echo done 10/24/21 showing severe concentric hypertrophy, EF 25-30%. Mod MR, mild to mod AR. Deterioration in EF compared to 07/12/21. maintained on ESTRELLITA-I, beta amy as outpatient. Coronary artery disease, Cardiac catheterization done on September 2016 showing tortuous coronary system with mild disease nonobstructive disease Chronic left bundle branch block COPD Tobaccoism Hypertension, restart on home blood pressure medication, continue to monitor. Hyperlipidemia, on statin, continue to monitor Hx of right hip fx in June 2021 History of elevated liver enzymes Anxiety Thank you for allowing us to participate in the management of Ms. Su. This is Tashia Sommer PA-C, as a scribe for Dr. Thomas. Clinical Quality Measures Stroke: Date of last known well: Nov 08, 2021 Time of last known well: 11:00 Symptoms onset unknown: No TASHIA AVILA Nov 09, 2021 10:02
--- NOTE | 2021-11-09 10:09 | Diagnostic Imaging Report ---
PROCEDURE: MR imaging of the brain without contrast. TECHNIQUE: Multiplanar, multisequence MR imaging of the brain was performed without contrast. INDICATION: Left-sided facial droopiness. COMPARISON: Correlation is made with the head CT performed one day earlier. FINDINGS: The ventricles and sulci are appropriate for the patient's age. No sulcal effacement or midline shift is identified. Periventricular and subcortical white matter changes are noted, consistent with chronic microvascular ischemia. No acute intra-axial or extra-axial hemorrhage is detected. No diffusion restriction is seen to suggest acute ischemia. The normal expected flow-voids within the carotid siphons are seen. IMPRESSION: Chronic and senescent changes. No acute intracranial process is identified. Dictated by: Dictated on workstation # [id number]
--- NOTE | 2021-11-09 10:44 | Speech Therapy Progress Note ---
Therapy Progress Note Speech pathology reattempted the evaluation at 1000. The patient was seated upright in her recliner, awake and alert. The patient greeted the clinician appropriately and remained pleasant and cooperative throughout the conversation. As speech pathology received stroke orders for speech, language, cognition and swallowing, questions were asked of all assessment areas. The patient consistently refused changes, concerns or difficulties with her speech, language or cognition. The patient's left facial droop was addressed which included reduced left labial retraction. The patient continued to refuse the presence of "slurred" speech (dysarthria). Additionally, the patient denied swallowing concerns regardless of the left facial weakness or edentulous state. The patient reported she consumes a regular diet with thin liquids and has no difficulty with medication. The patient consumed Coke via straw throughout the evaluation without s/s of suspected aspiration. Additionally, the patient "passed" the RN dysphagia screening. As the patient consistently reports baseline function, skilled speech pathology is not warranted at this time. ANDREE ARTEAGA Nov 09, 2021 10:44
[2021-11-09] MEDS ORDERED: DICL100G13 TOP (11:12)
[2021-11-09] MEDS ORDERED: MELA10TA2 PO (11:12)
[2021-11-09] MEDS ORDERED: AMLO-250 PO (11:29)
[2021-11-09] MEDS ORDERED: DICLOFENAC 1% GEL 100 GM (VOLTAREN) TUBE TOP PRN (11:30)
[2021-11-09] MEDS ORDERED: ACETAMINOPHEN 500 MG TAB (TYLENOL) PO PRN (11:30)
--- NOTE | 2021-11-09 11:34 | D/C HH Face to Face Order ---
D/C Face to Face Orders Reconcile Patient Problems Problems Reviewed?: Yes Instructions for Patient Integrity Patient Instructions/FollowUp: pcp 1 week Physician to follow Patient: chc Discharge Diet for Home: No Restrictions Patient Problems: debility htn Patient Data-Allergies,Ht & Wt Patient Allergies: Coded Allergies: cortisone (Verified Allergy, Unknown, 01/30/07) diphenhydramine (Verified Allergy, Unknown, 01/30/07) penicillin G (Verified Allergy, Unknown, 07/12/21) The patient is unaware that she has a penicillin allergy. She does not remember ever taking it and if she did what the reaction was. It has not been recently. Height (Feet): 5 Height (Inches): 4.00 Weight (Pounds): 188 Weight (Ounces): 0.0 Home Health Need/Face to Face Date of Face to Face: Nov 09, 2021 Clinical Findings: Generalized weakness and fatigue, Instability, Muscle weakness, Unsteady gait I have seen Pt [id number]: Yes Discharged To: Home Diagnosis/Conditions: debility Patient is Homebound due to: Maria Elena fall risk due to instabilty, Muscle weakness Homebound Status Due to the above stated illness, injury or surgical procedure (medical condition or diagnosis) and associated clinical findings, the patient is homebound because of his/her inability to leave home except with aid of a supportive device and/or person AND leaving the home requires a considerable and taxing effort or is medically contraindicated. Pt req the following assistanc: [facility] Nursing Orders Home Health Services Order: Nursing Services, Category Specialist-Evaluate & Treat, Physical Therapy-Evaluate & Treat [facility] certify that this patient is under my care and that I, a nurse practitioner or a physician; a state tested nursing assistant working with me, had a face to face encounter that - meets the physician face to face encounter requirements with this patient as dated. MAE LENTZ DO Nov 09, 2021 11:34
--- NOTE | 2021-11-09 11:36 | Progress Note ---
JEF BROWN MED STUDENT 11/09/21 1136: Progress Note Hospital Course: Miss Fritz is an 80 yo F, with a pmh including COPD, hypertension, hyperlipidemia, presented to the ED on 11/08/21 with left sided upperand lower extremity weakness and L perioral facial droop. Her last normal time was around 1100 that morning, according to her granddaughter. Upon arrival, imaging was conducted, her CT head was negative for any intracranial hemorrhages. The CTA revealed calcified atherosclerotic disease in the right internal carotid artery, resulting in 70-89% narrowing of the vessel. She was admitted for observation and to get an MRI. The MRI was negative for any acute intracranial processes. At this time, Catrina is feeling much better and denies any pain, headaches or vision changes. The L sided weakness has improved. She was seen by physical therapy and was able to move around comparably to her baseline. Miss Fritz is safe and stable to be discharged home today. Home health and home physical therapy services will be continued. MAYA HOSKINS DO 11/10/21 0513: Supervisory-Addendum Brief Verification & Attestation Participated in pt care: history, MDM, physical Personally performed: exam, history, MDM, supervision of care Care discussed with: Medical Student Procedures: n/a Results interpretation: Verified all documentation Verification and Attestation of Medical Student E/M Service A medical student performed and documented this service in my presence. I reviewed and verified all information documented by the medical student and made modifications to such information, when appropriate. I personally performed the physical exam and medical decision making. Maya Hoskins, Nov 10, 2021,05:13 JEF BROWN MED STUDENT Nov 09, 2021 11:36 MAYA HOSKINS DO Nov 10, 2021 05:13
--- NOTE | 2021-11-09 11:37 | Discharge Summary ---
Discharge Summary Hospital Course Was the Problem List Reviewed?: Yes Problems/Dx: (1) Hypertensive urgency Hospital Course Date of Admission: Nov 08, 2021 at 16:12 Admission Diagnosis : Family Physician/Provider: Jae Vences DO Date of Discharge: 11/09/21 Discharge Diagnosis: Hypertensive urgency causing transient neurological deficit, chronic baseline left facial droop, right carotid arterial disease Hospital Course: Hospital Course: Miss Fritz is an 80 yo F, with a pmh including COPD, hypertension, hyperlipidemia, presented to the ED on 11/08/21 with left sided upperand lower extremity weakness and L perioral facial droop. Her last normal time was around 1100 that morning, according to her granddaughter. Upon arrival, imaging was conducted, her CT head was negative for any intracranial hemorrhages. The CTA revealed calcified atherosclerotic disease in the right internal carotid artery, resulting in 70-89% narrowing of the vessel. She was admitted for observation and to get an MRI. The MRI was negative for any acute intracranial processes. At this time, Catrina is feeling much better and denies any pain, headaches or vision changes. The L sided weakness has improved. She was seen by physical therapy and was able to move around comparably to her baseline. Miss Fritz is safe and stable to be discharged home today. Home health and home physical therapy services will be continued. JEF BROWN STUDENT Labs and Pending Lab Test: Laboratory Tests 11/08/21 13:45: Glucometer 107 11/08/21 13:56: White Blood Count 4.1L, Red Blood Count 3.71L, Hemoglobin 11.6, Hematocrit 38, Mean Corpuscular Volume 101H, Mean Corpuscular Hemoglobin 31, Mean Corpuscular Hemoglobin Concent 31L, Red Cell Distribution Width 14.7H, Platelet Count 135, Mean Platelet Volume 10.7, Immature Granulocyte % (Auto) 0, Neutrophils (%) (Auto) 55, Lymphocytes (%) (Auto) 33, Monocytes (%) (Auto) 9, Eosinophils (%) (Auto) 2, Basophils (%) (Auto) 1, Neutrophils # (Auto) 2.3, Lymphocytes # (Auto) 1.4, Monocytes # (Auto) 0.4, Eosinophils # (Auto) 0.1, Basophils # (Auto) 0.0, Immature Granulocyte # (Auto) 0.0, Prothrombin Time 13.3, INR Comment 1.0, Activated Partial Thromboplast Time 30, D-Dimer 0.45, Sodium Level 143, Potassium Level 4.4, Chloride Level 105, Carbon Dioxide Level 26, Anion Gap 12, Blood Urea Nitrogen 27H, Creatinine 1.01, Estimat Glomerular Filtration Rate 56, BUN/Creatinine Ratio 27, Glucose Level 120H, Calcium Level 9.0, Corrected Calcium 9.1, Total Bilirubin 0.4, Aspartate Amino Transf (AST/SGOT) 29, Alanine Aminotransferase (ALT/SGPT) 32, Alkaline Phosphatase 96, Troponin I < 0.028, Total Protein 7.2, Albumin 3.9 11/08/21 14:15: Urine Color YELLOW, Urine Clarity CLEAR, Urine pH 5.0, Urine Specific [place] 1.020, Urine Protein NEGATIVE, Urine Glucose (UA) NEGATIVE, Urine Ketones N EGATIVE, Urine Nitrite NEGATIVE, Urine Bilirubin NEGATIVE, Urine Urobilinogen 0.2, Urine Leukocyte Esterase NEGATIVE, Urine RBC (Auto) NEGATIVE, Urine RBC NONE, Urine WBC NONE, Urine Squamous Epithelial Cells RARE, Urine Crystals NONE, Urine Bacteria NEGATIVE, Urine Casts NONE, Urine Mucus NEGATIVE, Urine Culture Indicated NO 11/08/21 20:06: Glucometer 161H 11/09/21 04:56: Glucometer 103 11/09/21 05:10: White Blood Count 4.0L, Red Blood Count 3.16L, Hemoglobin 9.8L, Hematocrit 32L, Mean Corpuscular Volume 100H, Mean Corpuscular Hemoglobin 31, Mean Corpuscular Hemoglobin Concent 31L, Red Cell Distribution Width 14.7H, Platelet Count 126L, Mean Platelet Volume 10.6, Immature Granulocyte % (Auto) 0, Neutrophils (%) (Auto) 53, Lymphocytes (%) (Auto) 34, Monocytes (%) (Auto) 9, Eosinophils (%) (Auto) 3, Basophils (%) (Auto) 0, Neutrophils # (Auto) 2.1, Lymphocytes # (Auto) 1.4, Monocytes # (Auto) 0.4, Eosinophils # (Auto) 0.1, Basophils # (Auto) 0.0, Immature Granulocyte # (Auto) 0.0, Percent Immature Platelet Fraction 3.8, Sodium Level 138, Potassium Level 3.6, Chloride Level 101, Carbon Dioxide Level 25, Anion Gap 12, Blood Urea Nitrogen 25H, Creatinine 0.99, Estimat Glomerular Filtration Rate 57, BUN/Creatinine Ratio 25, Glucose Level 99, Calcium Level 8.6, Corrected Calcium 9.1, Total Bilirubin 0.4, Aspartate Amino Transf (AST/SGOT) 26, Alanine Aminotransferase (ALT/SGPT) 28, Alkaline Phosphatase 79, Total Protein 6.1L, Albumin 3.4, Triglycerides Level 186H, Cholesterol Level 162, LDL Cholesterol Direct 103, VLDL Cholesterol 37, HDL Cholesterol 33L 11/09/21 11:31: Glucometer 127H Home Meds Active Amlodipine Besylate 5 Mg Tablet 5 Mg PO DAILY Reported Diclofenac Sodium 1 % Gel..gram. 1 Applic TOP QID PRN APPLY TO BACK Melatonin 10 Mg Tablet 10 Mg PO HS Paroxetine HCl 40 Mg Tablet 40 Mg PO HS Montelukast Sodium 10 Mg Tablet 10 Mg PO HS Furosemide 20 Mg Tablet 20 Mg PO DAILY Tylenol Extra Strength (Acetaminophen) 500 Mg Tablet 500-1,000 Mg PO Q8H PRN Aspirin EC (Aspirin) 81 Mg Tablet.dr 81 Mg PO DAILY Metoprolol Succinate 50 Mg Tab.er.24h 50 Mg PO DAILY Lisinopril 40 Mg Tablet 40 Mg PO DAILY Atorvastatin Calcium 20 Mg Tablet 20 Mg PO DAILY Metoclopramide HCl 10 Mg Tablet 10 Mg PO BID Trazodone HCl 100 Mg Tablet 100 Mg PO HS Cetirizine HCl 10 Mg Tablet 10 Mg PO DAILY Assessment/Pt Instructions PCP in 1 week to discuss carotid artery disease Discharge Planning: <30 minutes discharge planning Discharge Instructions Discharge Diet: No Restrictions Discharge Physical Examination Vital Signs Vital Signs Date Time Temp Pulse Resp B/P (MAP) Pulse Ox O2 Delivery O2 Flow Rate FiO2 11/09/21 08:42 36.2 67 18 138/77 (97) 92 Room Air 11/09/21 08:09 0.00 General Appearance: No Apparent Distress, WD/WN, Chronically ill Respiratory: Lungs Clear Cardiovascular: Regular Rate, Rhythm Neurologic/Psychiatric: Alert, Oriented x3, No Motor/Sensory Deficits, Normal Mood/Affect Allergies: Coded Allergies: cortisone (Verified Allergy, Unknown, 01/30/07) diphenhydramine (Verified Allergy, Unknown, 01/30/07) penicillin G (Verified Allergy, Unknown, 07/12/21) The patient is unaware that she has a penicillin allergy. She does not remember ever taking it and if she did what the reaction was. It has not been recently. Discharge Summary Date of Admission Nov 08, 2021 at 16:12 Date of Discharge Discharge Date: Nov 09, 2021 Admission Diagnosis CC; Cerebrovascular accident Clinical Quality Measures Stroke: Date of last known well: Nov 08, 2021 Time of last known well: 11:00 Symptoms onset unknown: MAE Menard DO Nov 09, 2021 11:37
[2021-11-09 12:20] VITALS: BP 138/77
[2021-11-09 12:26] VITALS: BP 139/64
--- NOTE | 2021-11-09 14:15 | Occ Therapy Progress Note ---
Therapy Progress Note OT orders received, pt discharged prior to OT evaluation being complete. ABEL DILLARD OT Nov 09, 2021 14:15
[2021-11-09] MEDS ORDERED: METOCLOPRAMIDE 10 MG (REGLAN) TAB PO SCH (21:00)
[2021-11-09] MEDS ORDERED: PARoxetine 20 MG (PAXIL) TAB PO SCH (21:00)
[2021-11-09] MEDS ORDERED: MONTELUKAST 10 MG (SINGULAIR) TAB PO SCH (21:00)
[2021-11-09] MEDS ORDERED: MELATONIN 10 MG TABLET PO SCH (21:00)
[2021-11-09] MEDS ORDERED: NON-FORMULARY MEDICATION 1 EA EA (Paroxetine HCl 40 MG) PO SCH (21:00)
[2021-11-09] MEDS ORDERED: traZODone 100 MG (DESYREL) TAB PO SCH (21:00)
[2021-11-10] MEDS ORDERED: lisINopril 40 MG (PRINIVIL) TABLET PO SCH (09:00)
[2021-11-10] MEDS ORDERED: CETIRIZINE HCL (ZYRTEC) 10 MG TAB PO SCH (09:00)
[2021-11-10] MEDS ORDERED: ASPIRIN E.C. 81 MG (ECOTRIN) TAB PO SCH (09:00)
[2021-11-10] MEDS ORDERED: FUROSEMIDE 20 MG (LASIX) TAB PO SCH (09:00)
[2021-11-10] MEDS ORDERED: meTOproloL SUCCINATE 50 MG (TOPROL XL) TAB PO SCH (09:00)
== END 2021-11-09 12:20 | disposition home health service (06) ==
LOC: EDUNIT# 13:33 → ER 13:35 → INTOOBSV 16:12 → 4TH 16:12
PROVIDERS: ADMIT Internal Medicine; ATTEND Internal Medicine
DX: I16.0 Hypertensive urgency (principal); I77.89 Other specified disorders of arteries and arterioles; I50.22 Chronic systolic (congestive) heart failure; I11.0 Hypertensive heart disease with heart failure; I63.9 Cerebral infarction, unspecified; I44.7 Left bundle-branch block, unspecified; J44.9 Chronic obstructive pulmonary disease, unspecified; R29.810 Facial weakness; G45.9 Transient cerebral ischemic attack, unspecified; D72.819 Decreased white blood cell count, unspecified; D64.9 Anemia, unspecified; E78.5 Hyperlipidemia, unspecified; F41.9 Anxiety disorder, unspecified; Z79.899 Other long term (current) drug therapy; Z98.890 Other specified postprocedural states; Z87.891 Personal history of nicotine dependence
CPT/HCPCS: 70450; 70496; 70498; 70551; 71045; 80053 ×2; 80061; 81000; 82947 ×2; 84484; 85025 ×2; 85379; 85610; 85730; 93005; 93041; 94760; 96372; 97116; 97161; 99284; G0378; 36415

== ENCOUNTER 2022-01-21 18:34 | Emergency (ER) | payer MEDICARE, MEDICAID ==
[~2022-01-21] VITALS: Ht 162 cm; Wt 77.0 kg
[~2022-01-21 18:34] MED LIST changes: +MELA10TA2 PO
[2022-01-21 18:52] LABS: BASOPHILS % (AUTO) 1 % (0-10); EOSINOPHILS # (AUTO) 0.1 10^3/uL (0.0-0.3); EOSINOPHILS % (AUTO) 3 % (0-10); HEMATOCRIT 32 % (35-52); LYMPHOCYTES # (AUTO) 1.4 10^3/uL (1.0-4.0); LYMPHOCYTES % (AUTO) 30 % (12-44); MEAN CORPUSCULAR HEMOGLOBIN 31 pg (25-34); MEAN CORPUSCULAR HGB CONC 31 g/dL (32-36); MEAN CORPUSCULAR VOLUME 99 fL (80-99); MEAN PLATELET VOLUME 11.5 fL (9.0-12.2); MONOCYTES # (AUTO) 0.4 10^3/uL (0.0-1.0); MONOCYTES % (AUTO) 8 % (0-12); NEUTROPHILS # (AUTO) 2.7 10^3/uL (1.8-7.8); NEUTROPHILS % (AUTO) 59 % (42-75); PLATELET COUNT 113 10^3/uL (130-400); WHITE BLOOD COUNT 4.6 10^3/uL (4.3-11.0)
--- NOTE | 2022-01-21 19:04 | ED Respiratory ---
General Chief Complaint: Respiratory Problems Stated Complaint: SOB Nursing Triage Note: PT ARRIVES TO ER VIA EMS FROM HOME. ACCORDING TO EMS, INITIAL CALL WAS FOR AMS, FAMILY REPORTS THAT PT WAS CONFUSED, UPON EMS ARRIVAL, PT A & O X 4, STROKE SCALE NEGATIVE, GLUCOSE 190, PT REFUSED TRANSPORT. FAMILY CALLED EMS AGAIN AND STATES PT O2 SAT WAS IN THE 80'S. UPON EMS ARRIVAL PT O2 SAT IN THE 90'S ON HER NORMAL O2 AT 3L. PT REPORTS SLIGHT SOB CURRENTLY, VSS. Source: patient Exam Limitations: no limitations History of Present Illness Date Seen by Provider: Jan 21, 2022 Time Seen by Provider: 18:31 Initial Comments Here by EMS with report of breathing problems. Apparently she was at home and EMS was called due to change in mental status earlier and patient declined to be transported. Shortly after EMS departed the scene from that, they were called back to the house due to report of shortness of breath. Family reports the patient's O2 saturations was in the 80s. EMS reports that O2 sats have been in the 90s throughout their care while patient has been on O2 at 3 L via nasal cannula. Patient does have some dementia related issues for the family. Patient does endorse mild shortness of air without chest pain or vomiting. Otherwise she has no significant complaints. Timing/Duration: this afternoon, changing over time Severity: mild Prior Episodes/Possible Cause: occasional episodes Modifying Factors: Improves With Oxygen, Improves With Rest Associated Symptoms: No chest pain/soreness, No cough, No fever/chills, No nasal congestion; shortness of breath; No wheezing Allergies and Home Medications Allergies Coded Allergies: cortisone (Verified Allergy, Unknown, 01/30/07) diphenhydramine (Verified Allergy, Unknown, 01/30/07) penicillin G (Verified Allergy, Unknown, 07/12/21) The patient is unaware that she has a penicillin allergy. She does not remember ever taking it and if she did what the reaction was. It has not been recently. Patient Home Medication List Home Medication List Reviewed: Yes Acetaminophen (Tylenol Extra Strength) 500 Mg Tablet, 500-1,000 MG PO Q8H PRN for PAIN-MILD (1-4), (Reported) Entered as Reported by: ELZA AGUILAR on 10/11/21 8152 Amlodipine Besylate (Amlodipine Besylate) 5 Mg Tablet, 5 MG PO DAILY Prescribed by: MAE LENTZ on 11/09/21 1129 Aspirin (Aspirin EC) 81 Mg Tablet.dr, 81 MG PO DAILY, (Reported) Entered as Reported by: ELZA AGUILAR on 10/11/21 154 Atorvastatin Calcium (Atorvastatin Calcium) 20 Mg Tablet, 20 MG PO DAILY, (Reported) Entered as Reported by: ELZA AGUILAR on 10/11/21 154 Cetirizine HCl (Cetirizine HCl) 10 Mg Tablet, 10 MG PO DAILY, (Reported) Entered as Reported by: ELZA AGUILAR on 10/11/211541 Diclofenac Sodium (Diclofenac Sodium) 1 % Gel..gram., 1 APPLIC TOP QID PRN for PAIN-BREAKTHROUGH, (Reported) Entered as Reported by: ELZA AGUILAR on 11/09/21 111 Furosemide (Furosemide) 20 Mg Tablet, 20 MG PO DAILY, (Reported) Entered as Reported by: ELZA AGUILAR on 10/11/21 154 Lisinopril (Lisinopril) 40 Mg Tablet, 40 MG PO DAILY, (Reported) Entered as Reported by: ELZA AGUILAR on 10/11/211541 Melatonin (Melatonin) 10 Mg Tablet, 10 MG PO HS, (Reported) Entered as Reported by: ELZA AGUILAR on 11/09/21 111 Metoclopramide HCl (Metoclopramide HCl) 10 Mg Tablet, 10 MG PO BID, (Reported) Entered as Reported by: ELZA AGUILAR on 10/11/211541 Metoprolol Succinate (Metoprolol Succinate) 50 Mg Tab.er.24h, 50 MG PO DAILY, (Reported) Entered as Reported by: ELZA AGUILAR on 10/11/211541 Montelukast Sodium (Montelukast Sodium) 10 Mg Tablet, 10 MG PO HS, (Reported) Entered as Reported by: ELZA AGUILAR on 10/11/211541 Paroxetine HCl (Paroxetine HCl) 40 Mg Tablet, 40 MG PO HS, (Reported) Entered as Reported by: ELZA AGUILAR on 10/11/211541 Trazodone HCl (Trazodone HCl) 100 Mg Tablet, 100 MG PO HS, (Reported) Entered as Reported by: ELZA AGUILAR on 10/11/211541 Review of Systems Review of Systems Constitutional: see HPI; No chills, No fever EENTM: No nose congestion, No throat pain Respiratory: No cough; short of breath Cardiovascular: No chest pain, No edema Gastrointestinal: No nausea, No vomiting Genitourinary: no symptoms reported Musculoskeletal: no symptoms reported All Other Systems Reviewed Negative Unless Noted: Yes Past Tywuvap-Ywyymz-Jsnyen Hx Patient Social History Tobacco Use?: No Use of E-Cig and/or Vaping dev: No Substance use?: No Alcohol Use?: No Pt feels they are or have been: No Immunizations Up To Date Tetanus Booster (TDap): Less than 5yrs PED Vaccines UTD: Yes First/Initial COVID19 Vaccinat: RECEIVED, UNK WHEN Second COVID19 Vaccination Taurus: RECEIVED, UNK WHEN Third COVID19 Vaccination Date: unknown date but did get booster per patient Seasonal Allergies Seasonal Allergies: Yes Past Medical History Surgery/Hospitalization HX: htn, gerd, high cholesterol, asthma Surgeries: Yes (RIGHT BREAST BIOPSY,ROTATOR CUFF) Section, Gallbladder, Hysterectomy, Oophorectomy, Orthopedic, Tonsillectomy Respiratory: Yes (COVID-19 12/2020-NO HOSPITALIZATION OR TREATMENT) Pneumonia, COPD Cardiac: Yes High Cholesterol, Hypertension Neurological: No Reproductive Disorders: No Sexually Transmitted Disease: No Genitourinary: Yes UTI-Chronic Gastrointestinal: Yes Gastroesophageal Reflux Musculoskeletal: Yes (FALLS) Arthritis Endocrine: No HEENT: No Hearing Impairment: Hard of Hearing Cancer: No Psychosocial: No Blood Disorders: Yes (ANEMIA) Adverse Reaction/Blood Tranf: No Family Medical History Reviewed Nursing Family Hx No Pertinent Family Hx, Cancer, COPD, Diabetes, Hypertension Physical Exam Vital Signs - First Documented 01/21/22 01/21/22 18:34 18:47 Temp 36.9 Pulse 74 Resp 22 B/P (MAP) 178/80 (112) Pulse Ox 98 O2 Delivery Nasal Cannula O2 Flow Rate 3.00 Capillary Refill : Height: 5'4.00" Weight: 188lbs. 0.0oz. 85.123253rx; 29.00 BMI Method:Stated General Appearance: WD/WN, no apparent distress HEENT: PERRL/EOMI, pharynx normal Neck: full range of motion, supple Respiratory: lungs clear, normal breath sounds Cardiovascular: regular rate, rhythm, no murmur Gastrointestinal: non tender, soft Extremities: non-tender, normal inspection Neurologic/Psychiatric: alert, normal mood/affect Skin: warm/dry; No rash Procedures/Interventions Suture Size: 5-0 Progress/Results/Core Measures Suspected Sepsis SIRS Temperature: Pulse: 74 Respiratory Rate: 22 Laboratory Tests 01/21/22 18:40: White Blood Count 4.6 Blood Pressure 178 /80 Mean: 112 Laboratory Tests 01/21/22 18:40: Platelet Count 113L 01/21/22 19:04: Creatinine 1.18, Total Bilirubin 0.4 Results/Orders Lab Results Laboratory Tests Test 01/21/22 18:40 01/21/22 19:04 Range/Units White Blood Count 4.6 4.3-11.0 10^3/uL Red Blood Count 3.25 L 3.80-5.11 10^6/uL Hemoglobin 10.0 L 11.5-16.0 g/dL Hematocrit 32 L 35-52 % Mean Corpuscular Volume 99 80-99 fL Mean Corpuscular Hemoglobin 31 25-34 pg Mean Corpuscular Hemoglobin Concent 31 L 32-36 g/dL Red Cell Distribution Width 13.3 10.0-14.5 % Platelet Count 113 L 130-400 10^3/uL Mean Platelet Volume 11.5 9.0-12.2 fL Immature Granulocyte % (Auto) 0 % Neutrophils (%) (Auto) 59 42-75 % Lymphocytes (%) (Auto) 30 12-44 % Monocytes (%) (Auto) 8 0-12 % Eosinophils (%) (Auto) 3 0-10 % Basophils (%) (Auto) 1 0-10 % Neutrophils # (Auto) 2.7 1.8-7.8 10^3/uL Lymphocytes # (Auto) 1.4 1.0-4.0 10^3/uL Monocytes # (Auto) 0.4 0.0-1.0 10^3/uL Eosinophils # (Auto) 0.1 0.0-0.3 10^3/uL Basophils # (Auto) 0.0 0.0-0.1 10^3/uL Immature Granulocyte # (Auto) 0.0 0.0-0.1 10^3/uL Percent Immature Platelet Fraction 6.0 0.0-7.6 % B-Type Natriuretic Peptide 63.9 <100.0 PG/ML Influenza Type A (RT-PCR) Not Detected Not Detecte Influenza Type B (RT-PCR) Not Detected Not Detecte SARS-CoV-2 RNA (RT-PCR) Not Detected Not Detecte Sodium Level 141 135-145 MMOL/L Potassium Level 4.3 3.6-5.0 MMOL/L Chloride Level 100 98-107 MMOL/L Carbon Dioxide Level 29 21-32 MMOL/L Anion Gap 12 5-14 MMOL/L Blood Urea Nitrogen 31 H 7-18 MG/DL Creatinine 1.18 0.60-1.30 MG/DL Estimat Glomerular Filtration Rate 46 BUN/Creatinine Ratio 26 Glucose Level 112 H 70-105 MG/DL Calcium Level 8.9 8.5-10.1 MG/DL Corrected Calcium 9.1 8.5-10.1 MG/DL Magnesium Level 1.8 1.6-2.4 MG/DL Total Bilirubin 0.4 0.1-1.0 MG/DL Aspartate Amino Transf (AST/SGOT) 48 H 5-34 U/L Alanine Aminotransferase (ALT/SGPT) 48 0-55 U/L Alkaline Phosphatase 124 40-136 U/L Troponin I < 0.028 <0.028 NG/ML C-Reactive Protein High Sensitivity 1.11 H 0.00-0.50 MG/DL Total Protein 7.3 6.4-8.2 GM/DL Albumin 3.7 3.2-4.5 GM/DL My Orders Orders - KOKO CAR MD Bnp Mya (01/21/22 18:39) Cbc With Automated Diff (01/21/22 18:39) Comprehensive Metabolic Panel (01/21/22 18:39) Hs C Reactive Protein (01/21/22 18:39) Magnesium (01/21/22 18:39) Troponin I Greer (01/21/22 18:39) Ed Iv/Invasive Line Start (01/21/22 18:39) Ekg Tracing (01/21/22 18:39) O2 (01/21/22 18:39) Monitor-Rhythm Ecg Trace Only (01/21/22 18:39) Chest 1 View, Ap/Pa Only (01/21/22 18:39) Covid 19 Inhouse Test (01/21/22 18:44) Influenza A And B By Pcr (01/21/22 18:44) Ns Iv 500 Ml (Sodium Chloride 0.9%) (01/21/22 19:30) Medications Given in ED Current Medications Medications Dose Ordered Sig/Trevon Route Start Time Stop Time Status Last Admin Dose Admin Sodium Chloride 500 ml @ 0 mls/hr Q0M ONCE IV 01/21/22 19:30 01/21/22 19:32 DC 01/21/22 19:38 0 MLS/HR Vital Signs/I&O 01/21/22 01/21/22 01/21/22 01/21/22 18:34 18:47 18:50 19:10 Temp 36.9 Pulse 74 64 Resp 22 B/P (MAP) 178/80 (112) 178/80 Pulse Ox 98 99 100 O2 Delivery Nasal Cannula Nasal Cannula Nasal Cannula Nasal Cannula O2 Flow Rate 3.00 3.00 3.00 01/21/22 20:02 Pulse 62 Resp 18 B/P (MAP) 178/80 Pulse Ox 99 O2 Delivery Nasal Cannula O2 Flow Rate 3.00 Capillary Refill : Blood Pressure Mean: 112 Progress Note : Progress Note Seen and evaluated. IV, labs, EKG and chest x-ray ordered. We will continue oxygen at 3 L via nasal cannula. We will get basic labs to evaluate heart as well as electrolytes and blood counts. Chest x-ray ordered due to reported shortness of breath. We will go ahead and check COVID test as this is had much higher incidence in the community recently. Patient is vaccinated and has had previous COVID infection with its been sometime ago. Monitor patient. 1939: I did have a lengthy conversation with patient's family. She apparently was having some intermittent pulse oximeter findings that concerned them and she has had some confusion increases lately. One of the family members was concerned about dehydration and states that she has not been drinking well. We will go ahead and give normal saline 500 mL bolus. O2 saturations have been 99 to 100% throughout ED stay. She does have rather thick nail mauritian on which does complicate reading occasionally and she does feel with her fingers quite a bit. This was discussed with the patient's family as well and they understood that. We will continue to monitor after fluid. 1946: Labs do not show any appreciable abnormalities currently. Monitor patient. 2109: Patient overall doing much better. She is eating a cupcake currently and responding well. Patient's daughter believes that she is at baseline. Patient is without complaints. I do believe that this is related to both dementia and dehydration and the dehydration is improved currently. We did discuss outpatient encouragement of fluids and following up with her doctor. They are both comfortable going home. Discharged home with return precautions. Patient and family verbalized understanding of instructions and agreement with plan. ECG Initial ECG Impression Date: Jan 21, 2022 Initial ECG Impression Time: 18:48 Initial ECG Rate: 65 Initial ECG Rhythm: Normal Sinus Comment Sinus rhythm with left axis deviation and left bundle branch block. No evidence of ST elevation CO. Similar to previous of 11/01/2021. Interpreted by me. Diagnostic Imaging Diagonstic Imaging: Xray Plain Films/CT/US/NM/MRI: chest Comments [facility], [place] NAME: LOKI LOPEZ [facility] REC#: [id number] PT STATUS: REG ER : 1940 PHYSICIAN: KOKO CAR MD ADMIT DATE: 01/21/22/ER Draft Date of Exam:01/21/22 CHEST 1 VIEW, AP/PA ONLY INDICATION: Shortness of air. COMPARISON: 11/08/2021. TECHNIQUE: Single radiograph of the chest dated January 21, 2022. FINDINGS: The cardiac silhouette is enlarged. No significant pulmonary vascular congestion. Calcifications within the aorta. Background senescent changes of the lungs. Mild left basilar interstitial opacities, increased from the prior examinations. No significant pleural effusion. No pneumothorax. No acute osseous abnormality. IMPRESSION: 1. Mild left basilar atelectasis and/or pneumonitis, new from prior exams. 2. Mild cardiomegaly without significant pulmonary vascular congestion. Dictated on workstation # [id number] Dict: 01/21/221947 Trans: 01/21/221953 [facility] [id number] Interpreted by: FARAZ BERUMEN MD Electronically signed by: Departure Impression Primary Impression: Dehydration Additional Impression: Dementia Qualified Codes: F03.90 - Unspecified dementia without behavioral disturbance Disposition: 01 HOME, SELF-CARE Condition: Improved Departure-Patient Inst. Decision time for Depature: 21:16 Referrals: ELZA FERGUSON DO (PCP/Family) Primary Care Physician Patient Instructions: Dehydration, Adult (DC), Dementia (DC) Add. Discharge Instructions: All discharge instructions reviewed with patient and/or family. Voiced understanding. Continue home medications as previously prescribed. Encourage plenty of fluids. Follow-up with your doctor in a few days for recheck. Try to eat a normal diet. You should leave 1 fingernail on each hand and painted so that pulse ox readings are more accurate. Continue previous oxygen setting at home. Return for pain, weakness, breathing problems, vomiting, chest pain or other concerns as needed. KOKO CAR MD Jan 21, 2022 19:04
[2022-01-21 19:20] LABS: ALBUMIN 3.7 GM/DL (3.2-4.5); CHLORIDE 100 MMOL/L (98-107); POTASSIUM 4.3 MMOL/L (3.6-5.0); SODIUM 141 MMOL/L (135-145)
[2022-01-21 19:21] LABS: CALCIUM 8.9 MG/DL (8.5-10.1)
[2022-01-21 19:23] LABS: GLUCOSE 112 MG/DL (70-105); TOTAL PROTEIN 7.3 GM/DL (6.4-8.2)
[2022-01-21 19:24] LABS: BILIRUBIN,TOTAL 0.4 MG/DL (0.1-1.0); CARBON DIOXIDE 29 MMOL/L (21-32)
[2022-01-21 19:26] LABS: ALKALINE PHOSPHATASE 124 U/L (40-136); CREATININE SERUM 1.18 MG/DL (0.60-1.30); GFR ESTIMATED 46
[2022-01-21 19:27] LABS: BUN/CREATININE RATIO 26
[2022-01-21 19:29] LABS: ALANINE AMINOTRANSFERASE 48 U/L (0-55); MAGNESIUM 1.8 MG/DL (1.6-2.4)
[2022-01-21] MEDS ORDERED: NS IV 500 ML 500 ML IV ONE (19:30)
--- NOTE | 2022-01-21 19:55 | Diagnostic Imaging Report ---
INDICATION: Shortness of air. COMPARISON: 11/08/2021. TECHNIQUE: Single radiograph of the chest dated January 21, 2022. FINDINGS: The cardiac silhouette is enlarged. No significant pulmonary vascular congestion. Calcifications within the aorta. Background senescent changes of the lungs. Mild left basilar interstitial opacities, increased from the prior examinations. No significant pleural effusion. No pneumothorax. No acute osseous abnormality. IMPRESSION: 1. Mild left basilar atelectasis and/or pneumonitis, new from prior exams. 2. Mild cardiomegaly without significant pulmonary vascular congestion. Dictated by: Dictated on workstation # [id number]
[2022-01-21 21:48] VITALS: BP 163/74
== END 2022-01-21 21:48 | disposition home or self-care (01) ==
LOC: EDUNIT# 18:34 → ER 18:35
DX: E86.0 Dehydration (principal); F03.90 Unspecified dementia, unspecified severity, without behavioral disturbance, psychotic disturbance, mood disturbance, and anxiety; I44.7 Left bundle-branch block, unspecified; J44.9 Chronic obstructive pulmonary disease, unspecified; Z99.81 Dependence on supplemental oxygen; Z86.16 Personal history of COVID-19; Z20.822 Contact with and (suspected) exposure to COVID-19
CPT/HCPCS: 36415; 71045; 80053; 83735; 83880; 84484; 85025; 86141; 87636; 93005; 93041

== ENCOUNTER 2022-03-06 11:00 | Emergency (ER) | payer MEDICARE, MEDICAID ==
[~2022-03-06] VITALS: Ht 162 cm; Wt 77.1 kg
--- NOTE | 2022-03-06 11:39 | ED Integumentary General ---
General Chief Complaint: Skin/Wound Problems Stated Complaint: LEFT THUMB LAC Nursing Triage Note: PT PRESENTS TO ED VIA POV ACCOMPANIED BY ADULT GRANDDAUGHTER FOR SCRATCH UN PT L THUMB NAIL BED. PT IS ON BLOOD THINNERS AND FAMILY HAD A HARD TIME GETTING IT TO STOP BLEEDING. Source: patient Exam Limitations: no limitations History of Present Illness Date Seen by Provider: Mar 06, 2022 Time Seen by Provider: 11:35 Initial Comments To ER by private vehicle accompanied by granddaughter with reports of bleeding from beneath the left thumbnail. Granddaughter was cleaning her fingernails using her own thumbnail and the nail plate from the nailbed and now she has some bleeding. She is on aspirin and Eliquis for atrial fibrillation. Timing/Duration: just prior to arrival, getting worse Severity: mild Location: hands Possible Cause: other Associated Symptoms: denies symptoms Allergies and Home Medications Allergies Coded Allergies: cortisone (Verified Allergy, Unknown, 01/30/07) diphenhydramine (Verified Allergy, Unknown, 01/30/07) penicillin G (Verified Allergy, Unknown, 07/12/21) The patient is unaware that she has a penicillin allergy. She does not remember ever taking it and if she did what the reaction was. It has not been recently. Patient Home Medication List Home Medication List Reviewed: Yes Acetaminophen (Tylenol Extra Strength) 500 Mg Tablet, 500-1,000 MG PO Q8H PRN for PAIN-MILD (1-4), (Reported) Entered as Reported by: ELZA AGUILAR on 10/11/211541 Amlodipine Besylate (Amlodipine Besylate) 5 Mg Tablet, 5 MG PO DAILY Prescribed by: MAE LENTZ on 11/09/21 1129 Aspirin (Aspirin EC) 81 Mg Tablet.dr, 81 MG PO DAILY, (Reported) Entered as Reported by: ELZA AGUILAR on 10/11/21 154 Atorvastatin Calcium (Atorvastatin Calcium) 20 Mg Tablet, 20 MG PO DAILY, (Reported) Entered as Reported by: ELZA AGUILAR on 10/11/211541 Cetirizine HCl (Cetirizine HCl) 10 Mg Tablet, 10 MG PO DAILY, (Reported) Entered as Reported by: ELZA AGUILAR on 10/11/21 154 Diclofenac Sodium (Diclofenac Sodium) 1 % Gel..gram., 1 APPLIC TOP QID PRN for PAIN-BREAKTHROUGH, (Reported) Entered as Reported by: ELZA AGUILAR on 11/09/21 111 Furosemide (Furosemide) 20 Mg Tablet, 20 MG PO DAILY, (Reported) Entered as Reported by: ELZA AGUILAR on 10/11/21 154 Lisinopril (Lisinopril) 40 Mg Tablet, 40 MG PO DAILY, (Reported) Entered as Reported by: ELZA AGUILAR on 10/11/211541 Melatonin (Melatonin) 10 Mg Tablet, 10 MG PO HS, (Reported) Entered as Reported by: ELZA AGUILAR on 11/09/21 111 Metoclopramide HCl (Metoclopramide HCl) 10 Mg Tablet, 10 MG PO BID, (Reported) Entered as Reported by: ELZA AGUILAR on 10/11/211541 Metoprolol Succinate (Metoprolol Succinate) 50 Mg Tab.er.24h, 50 MG PO DAILY, (Reported) Entered as Reported by: ELZA AGUILAR on 10/11/211541 Montelukast Sodium (Montelukast Sodium) 10 Mg Tablet, 10 MG PO HS, (Reported) Entered as Reported by: ELZA AGUILAR on 10/11/211541 Paroxetine HCl (Paroxetine HCl) 40 Mg Tablet, 40 MG PO HS, (Reported) Entered as Reported by: ELZA AGUILAR on 10/11/211541 Trazodone HCl (Trazodone HCl) 100 Mg Tablet, 100 MG PO HS, (Reported) Entered as Reported by: ELZA AGUILAR on 10/11/211541 Review of Systems Review of Systems Constitutional: see HPI EENTM: see HPI Respiratory: no symptoms reported Cardiovascular: no symptoms reported Genitourinary: no symptoms reported Musculoskeletal: no symptoms reported Skin: no symptoms reported Psychiatric/Neurological: No Symptoms Reported Endocrine: No Symptoms Reported Past Bniopbv-Xvwlvl-Gntgcc Hx Patient Social History Substance use?: No Alcohol Use?: No Immunizations Up To Date Tetanus Booster (TDap): Less than 5yrs PED Vaccines UTD: Yes First/Initial COVID19 Vaccinat: RECEIVED, UNK WHEN Second COVID19 Vaccination Taurus: RECEIVED, UNK WHEN Third COVID19 Vaccination Date: RECEIVED, UNK WHEN Seasonal Allergies Seasonal Allergies: Yes Past Medical History Surgery/Hospitalization HX: htn, gerd, high cholesterol, asthma Surgeries: Yes (RIGHT BREAST BIOPSY,ROTATOR CUFF) Section, Gallbladder, Hysterectomy, Oophorectomy, Orthopedic, Tonsillectomy Respiratory: Yes (COVID-19 12/2020-NO HOSPITALIZATION OR TREATMENT) Pneumonia, COPD Cardiac: Yes High Cholesterol, Hypertension Neurological: No Reproductive Disorders: No Sexually Transmitted Disease: No Genitourinary: Yes UTI-Chronic Gastrointestinal: Yes Gastroesophageal Reflux Musculoskeletal: Yes (FALLS) Arthritis Endocrine: No HEENT: No Hearing Impairment: Hard of Hearing Cancer: No Psychosocial: No Blood Disorders: Yes (ANEMIA) Adverse Reaction/Blood Tranf: No Family Medical History No Pertinent Family Hx, Cancer, COPD, Diabetes, Hypertension Physical Exam Vital Signs Vital Signs - First Documented 03/06/22 11:22 Temp 36.8 Pulse 64 Resp 16 B/P (MAP) 171/110 (130) Pulse Ox 100 Capillary Refill : Less Than 3 Seconds General Appearance: WD/WN, no apparent distress HEENT: PERRL/EOMI, normal ENT inspection Neck: non-tender, full range of motion Respiratory: no respiratory distress, no accessory muscle use Neurologic/Psychiatric: alert, normal mood/affect, oriented x 3 Skin: normal color, warm/dry Skin Problem Location: upper extremities Skin Problem Character: other (Needs the distal aspect of the left nail plate there is persistent oozing of blood. Easily stopped with direct pressure. [place] applied to the thumb, glue applied to the distal aspect of the nail plate/bed which achieved hemostasis.) Procedures/Interventions Suture Size: 5-0 Progress/Results/Core Measures Results/Orders Vital Signs/I&O 03/06/22 11:22 Temp 36.8 Pulse 64 Resp 16 B/P (MAP) 171/110 (130) Pulse Ox 100 Blood Pressure Mean: 130 Departure Impression Primary Impression: Fingernail avulsion, partial Disposition: 01 HOME, SELF-CARE Condition: Stable Departure-Patient Inst. Decision time for Depature: 11:38 Referrals: ELZA FERGUSON DO (PCP/Family) Primary Care Physician Patient Instructions: Nail Avulsion (DC) Add. Discharge Instructions: 1. Return to ER for any concerns. Allow the glue to fall off on its own in a few days. Wear the splint for the next 3 to 4 days. All discharge instructions reviewed with patient and/or family. Voiced understanding. CAMILO LUNA APRN Mar 06, 2022 11:39
[2022-03-06 11:51] VITALS: BP 171/110
== END 2022-03-06 11:51 | disposition home or self-care (01) ==
LOC: EDUNIT# 11:00 → ER 11:02
DX: S61.102A Unspecified open wound of left thumb with damage to nail, initial encounter (principal); I48.91 Unspecified atrial fibrillation; Z86.16 Personal history of COVID-19; Z79.82 Long term (current) use of aspirin; Z79.01 Long term (current) use of anticoagulants; X58.XXXA Exposure to other specified factors, initial encounter
CPT/HCPCS: 29130

== ENCOUNTER 2022-03-18 19:55 | Inpatient (IN) | payer MEDICARE, MEDICAID ==
[~2022-03-18] VITALS: Ht 162.6 cm; Wt 85.3 kg
[2022-03-18 21:28] LABS: ABG OXYGEN SATURATION 99 % (94-100); ABG PCO2 65 MMHG (35-45); ABG PO2 149 MMHG (79-93); ABG TCO2 35.9 MMOL/L (21.0-31.0)
[2022-03-18 21:29] LABS: ABG PH 7.35 (7.37-7.43); ALLENS TEST YES-POS; INSPIRED O2 2L; PATIENT TEMP 36.7; VENTILATOR NO
--- NOTE | 2022-03-18 21:35 | Diagnostic Imaging Report ---
EXAMINATION: Chest radiograph, portable AP view. DATE: 03/18/2022 9:24 PM INDICATION: 81-year-old female, shortness of breath and cough. COMPARISON: January 21, 2022. FINDINGS: Heart size and mediastinal contours are unchanged. There is no identified pneumothorax. There is no large pleural effusion. There is unchanged blunting of the left lateral costophrenic angle IMPRESSION: Blunting of the left lateral costophrenic angle which may relate to a small effusion, atelectasis, and/or infiltrate. This also could reflect soft tissue overlap. This is a similar appearance to the prior study. Dictated by: Dictated on workstation # [id number]
--- NOTE | 2022-03-18 22:48 | ED Cough/URI ---
General Chief Complaint: COVID19 Suspect/Confirmed Stated Complaint: COUGH Nursing Triage Note: TO ED VIA POV AND W/C TO ROOM 5 WITH C/O COUGH FOR SEVERAL DAYS. PT WEARS HOME O2 AT 2L AT ALL TIMES. NO COUGH NOTED DURING TRIAGE. Source: patient Exam Limitations: no limitations History of Present Illness Date Seen by Provider: Mar 18, 2022 Time Seen by Provider: 22:31 Initial Comments Patient to the ER by private conveyance from home with chief complaint per her granddaughter/caregiver that she is having a cough without fever chills nausea vomiting diarrhea or sick contacts. Patient has a history of COPD on supplemental 2 L of oxygen. She has not needed more oxygen. She has a history of COPD. She is not having a productive cough. She denies any urinary symptoms. Allergies and Home Medications Allergies Coded Allergies: cortisone (Verified Allergy, Unknown, 01/30/07) diphenhydramine (Verified Allergy, Unknown, 01/30/07) penicillin G (Verified Allergy, Unknown, 07/12/21) The patient is unaware that she has a penicillin allergy. She does not remember ever taking it and if she did what the reaction was. It has not been recently. Patient Home Medication List Home Medication List Reviewed: Yes Acetaminophen (Tylenol Extra Strength) 500 Mg Tablet, 500-1,000 MG PO Q8H PRN for PAIN-MILD (1-4), (Reported) Entered as Reported by: ELZA AGUILAR on 10/11/211541 Amlodipine Besylate (Amlodipine Besylate) 5 Mg Tablet, 5 MG PO DAILY Prescribed by: MAE LENTZ on 11/09/21 1129 Aspirin (Aspirin EC) 81 Mg Tablet.dr, 81 MG PO DAILY, (Reported) Entered as Reported by: ELZA AGUILAR on 10/11/211541 Atorvastatin Calcium (Atorvastatin Calcium) 20 Mg Tablet, 20 MG PO DAILY, (Reported) Entered as Reported by: ELZA AGUILAR on 10/11/211541 Cetirizine HCl (Cetirizine HCl) 10 Mg Tablet, 10 MG PO DAILY, (Reported) Entered as Reported by: ELZA AGUILAR on 10/11/211541 Diclofenac Sodium (Diclofenac Sodium) 1 % Gel..gram., 1 APPLIC TOP QID PRN for PAIN-BREAKTHROUGH, (Reported) Entered as Reported by: ELZA AGUILAR on 11/09/21 111 Furosemide (Furosemide) 20 Mg Tablet, 20 MG PO DAILY, (Reported) Entered as Reported by: ELZA AGUILAR on 10/11/21 154 Lisinopril (Lisinopril) 40 Mg Tablet, 40 MG PO DAILY, (Reported) Entered as Reported by: ELZA AGUILAR on 10/11/21 154 Melatonin (Melatonin) 10 Mg Tablet, 10 MG PO HS, (Reported) Entered as Reported by: ELZA AGUILAR on 11/09/21 111 Metoclopramide HCl (Metoclopramide HCl) 10 Mg Tablet, 10 MG PO BID, (Reported) Entered as Reported by: ELZA AGUILAR on 10/11/21 154 Metoprolol Succinate (Metoprolol Succinate) 50 Mg Tab.er.24h, 50 MG PO DAILY, (Reported) Entered as Reported by: ELZA AGUILAR on 10/11/21 154 Montelukast Sodium (Montelukast Sodium) 10 Mg Tablet, 10 MG PO HS, (Reported) Entered as Reported by: ELZA AGUILAR on 10/11/21 154 Paroxetine HCl (Paroxetine HCl) 40 Mg Tablet, 40 MG PO HS, (Reported) Entered as Reported by: ELZA AGUILAR on 10/11/21 154 Trazodone HCl (Trazodone HCl) 100 Mg Tablet, 100 MG PO HS, (Reported) Entered as Reported by: ELZA AGUILAR on 10/11/21 154 Review of Systems Review of Systems Constitutional: No chills, No diaphoresis EENTM: No ear discharge, No ear pain Respiratory: cough, short of breath Cardiovascular: No chest pain, No edema Gastrointestinal: No abdominal pain, No nausea Genitourinary: No discharge, No dysuria Musculoskeletal: No back pain, No joint pain All Other Systems Reviewed Negative Unless Noted: Yes Past Ilimbjx-Lsqkkf-Cycwaa Hx Patient Social History Smoking Status: Former Smoker Substance use?: No Alcohol Use?: No Immunizations Up To Date Tetanus Booster (TDap): Less than 5yrs PED Vaccines UTD: Yes First/Initial COVID19 Vaccinat: RECEIVED, UNK WHEN Second COVID19 Vaccination Taurus: RECEIVED, UNK WHEN Third COVID19 Vaccination Date: RECEIVED, UNK WHEN COVID19 Vaccine Radar Scientist: STATES HAS HAD 2 VACCINES PLUS BOOSTER Seasonal Allergies Seasonal Allergies: Yes Past Medical History Surgery/Hospitalization HX: htn, gerd, high cholesterol, asthma Surgeries: Yes (RIGHT BREAST BIOPSY,ROTATOR CUFF) Section, Gallbladder, Hysterectomy, Oophorectomy, Orthopedic, Tonsillectomy Respiratory: Yes (COVID-19 12/2020-NO HOSPITALIZATION OR TREATMENT) Pneumonia, COPD Cardiac: Yes High Cholesterol, Hypertension Neurological: No Reproductive Disorders: No Sexually Transmitted Disease: No Genitourinary: Yes UTI-Chronic Gastrointestinal: Yes Gastroesophageal Reflux Musculoskeletal: Yes (FALLS) Arthritis Endocrine: No HEENT: No Hearing Impairment: Hard of Hearing Cancer: No Psychosocial: No Blood Disorders: Yes (ANEMIA) Adverse Reaction/Blood Tranf: No Family Medical History No Pertinent Family Hx, Cancer, COPD, Diabetes, Hypertension Physical Exam Vital Signs - First Documented Capillary Refill : Less Than 3 Seconds Height: 5'4.00" Weight: 188lbs. 0.0oz. 85.100339yd; 29.00 BMI Method:Stated General Appearance: WD/WN, mild distress Eyes: Bilateral Eye Normal Inspection, Bilateral Eye PERRL, Bilateral Eye EOMI HEENT: PERRL/EOMI, normal ENT inspection Neck: full range of motion, supple, normal inspection Respiratory: no accessory muscle use, respiratory distress (Mild, respiratory rate 21 breaths/min, no accessory muscle use), decreased breath sounds Cardiovascular: normal peripheral pulses, regular rate, rhythm Gastrointestinal: non tender, soft Extremities: non-tender, normal inspection Neurologic/Psychiatric: alert, normal mood/affect, oriented x 3 Skin: normal color, warm/dry Procedures/Interventions Suture Size: 5-0 Progress/Results/Core Measures Suspected Sepsis SIRS Temperature: Pulse: 75 Respiratory Rate: 16 Laboratory Tests 03/18/22 22:45: White Blood Count 6.3 Blood Pressure 185 /84 Mean: 117 Laboratory Tests 03/18/22 22:45: Creatinine 0.89, Platelet Count 144, Total Bilirubin 0.4 Results/Orders Lab Results Laboratory Tests Test 03/18/22 20:53 03/18/22 21:20 03/18/22 22:45 Range/Units Influenza Type A (RT-PCR) Not Detected Not Detecte Influenza Type B (RT-PCR) Not Detected Not Detecte SARS-CoV-2 RNA (RT-PCR) Not Detected Not Detecte Blood Gas Puncture Site RIGHT RADIAL Blood Gas Patient Temperature 36.7 Arterial Blood pH 7.35 L 7.37-7.43 Arterial Blood Partial Pressure CO2 65 H 35-45 MMHG Arterial Blood Partial Pressure O2 149 H 79-93 MMHG Arterial Blood HCO3 34 H 23-27 MMOL/L Arterial Blood Total CO2 35.9 H 21.0-31.0 MMOL/L Arterial Blood Oxygen Saturation 99 94-100 % Arterial Blood Base Excess 8.0 H -2.5-2.5 MMOL/L Iam Test YES-POS Blood Gas Ventilator Setting NO Blood Gas Inspired Oxygen 2L White Blood Count 6.3 4.3-11.0 10^3/uL Red Blood Count 3.21 L 3.80-5.11 10^6/uL Hemoglobin 9.9 L 11.5-16.0 g/dL Hematocrit 32 L 35-52 % Mean Corpuscular Volume 98 80-99 fL Mean Corpuscular Hemoglobin 31 25-34 pg Mean Corpuscular Hemoglobin Concent 31 L 32-36 g/dL Red Cell Distribution Width 13.6 10.0-14.5 % Platelet Count 144 130-400 10^3/uL Mean Platelet Volume 10.5 9.0-12.2 fL Immature Granulocyte % (Auto) 0 % Neutrophils (%) (Auto) 68 42-75 % Lymphocytes (%) (Auto) 20 12-44 % Monocytes (%) (Auto) 9 0-12 % Eosinophils (%) (Auto) 2 0-10 % Basophils (%) (Auto) 1 0-10 % Neutrophils # (Auto) 4.3 1.8-7.8 10^3/uL Lymphocytes # (Auto) 1.3 1.0-4.0 10^3/uL Monocytes # (Auto) 0.6 0.0-1.0 10^3/uL Eosinophils # (Auto) 0.1 0.0-0.3 10^3/uL Basophils # (Auto) 0.0 0.0-0.1 10^3/uL Immature Granulocyte # (Auto) 0.0 0.0-0.1 10^3/uL Percent Immature Platelet Fraction 4.4 0.0-7.6 % Urine Color YELLOW Urine Clarity CLEAR Urine pH 6.0 5-9 Urine Specific [place] 1.020 1.016-1.022 Urine Protein NEGATIVE NEGATIVE Urine Glucose (UA) NEGATIVE NEGATIVE Urine Ketones NEGATIVE NEGATIVE Urine Nitrite POSITIVE H NEGATIVE Urine Bilirubin NEGATIVE NEGATIVE Urine Urobilinogen 0.2 < = 1.0 MG/DL Urine Leukocyte Esterase 2+ H NEGATIVE Urine RBC (Auto) TRACE-I H NEGATIVE Urine RBC 0-2 /HPF Urine WBC 25-50 H /HPF Urine Squamous Epithelial Cells 0-2 /HPF Urine Crystals NONE /LPF Urine Bacteria LARGE H /HPF Urine Casts NONE /LPF Urine Mucus NEGATIVE /LPF Urine Culture Indicated YES Sodium Level 139 135-145 MMOL/L Potassium Level 4.0 3.6-5.0 MMOL/L Chloride Level 101 98-107 MMOL/L Carbon Dioxide Level 27 21-32 MMOL/L Anion Gap 11 5-14 MMOL/L Blood Urea Nitrogen 24 H 7-18 MG/DL Creatinine 0.89 0.60-1.30 MG/DL Estimat Glomerular Filtration Rate 64 BUN/Creatinine Ratio 27 Glucose Level 118 H 70-105 MG/DL Calcium Level 9.1 8.5-10.1 MG/DL Corrected Calcium 9.5 8.5-10.1 MG/DL Total Bilirubin 0.4 0.1-1.0 MG/DL Aspartate Amino Transf (AST/SGOT) 72 H 5-34 U/L Alanine Aminotransferase (ALT/SGPT) 62 H 0-55 U/L Alkaline Phosphatase 146 H 40-136 U/L C-Reactive Protein High Sensitivity 1.39 H 0.00-0.50 MG/DL Total Protein 8.3 H 6.4-8.2 GM/DL Albumin 3.5 3.2-4.5 GM/DL My Orders Orders - DOT LORENZ 19 Inhouse Test (03/18/22 20:24) Influenza A And B By Pcr (03/18/22 20:24) Cbc With Automated Diff (03/18/22 20:58) Comprehensive Metabolic Panel (03/18/22 20:58) Hs C Reactive Protein (03/18/22 20:58) Chest 1 View, Ap/Pa Only (03/18/22 20:58) Arterial Blood Gas (03/18/22 21:15) Mycoplasma Antibodies (03/18/22 22:40) Ua Culture If Indicated (03/18/22 22:45) Methylprednisolone Sod Succ (Solu-Medrol (03/18/22 23:00) Urine Culture (03/18/22 22:45) Medications Given in ED Current Medications Medications Dose Ordered Sig/Trevon Route Start Time Stop Time Status Last Admin Dose Admin Methylprednisolone Sodium Succinate 125 mg ONCE ONCE IVP 03/18/22 23:00 03/18/22 23:01 DC 03/18/22 22:57 125 MG Vital Signs/I&O 03/18/22 03/18/22 20:47 20:47 Temp 36.7 Pulse 75 Resp 16 B/P (MAP) 185/84 (117) Pulse Ox 99 O2 Delivery Nasal Cannula Nasal Cannula O2 Flow Rate 2.00 2.00 Capillary Refill : Less Than 3 Seconds Blood Pressure Mean: 117 Progress Note #1: Time: 22:47 Progress Note ABG demonstrates borderline pH 7.35 and CO2 retention. Return discussed COPD exacerbation versus pneumonia. Chest x-ray is middling for any signs of infiltrate. We will get some labs to correlate. We will give her a dose of steroids and she is agreeable to inpatient on BiPAP Progress Note #2: Time: 06:32 Progress Note Patient shows some borderline CO2 retention on ABG. She may benefit from some BiPAP overnight. She has a UTI and because of her age and frailty we have offered an observation stay in the hospital which she agrees to. Diagnostic Imaging Diagonstic Imaging: Xray Plain Films/CT/US/NM/MRI: chest Comments [facility], [place] NAME: LOKI LOPEZ [facility] REC#: [id number] PT STATUS: REG ER : 1940 PHYSICIAN: DOT LORENZ MD ADMIT DATE: 03/18/22/ER Signed Date of Exam:03/18/22 CHEST 1 VIEW, AP/PA ONLY EXAMINATION: Chest radiograph, portable AP view. DATE: 03/18/2022 9:24 PM INDICATION: 81-year-old female, shortness of breath and cough. COMPARISON: January 21, 2022. FINDINGS: Heart size and mediastinal contours are unchanged. There is no identified pneumothorax. There is no large pleural effusion. There is unchanged blunting of the left lateral costophrenic angle IMPRESSION: Blunting of the left lateral costophrenic angle which may relate to a small effusion, atelectasis, and/or infiltrate. This also could reflect soft tissue overlap. This is a similar appearance to the prior study. Dictated by: Dictated on workstation # [id number] Dict: 03/18/222131 Trans: 03/18/222145 [facility] [phone] Interpreted by: ERICH GORMAN MD Electronically signed by: ERICH GORMAN MD 03/18/222145 Reviewed: Reviewed by Me Departure Communication (Admissions) Time/Spoke to Admitting Phy: 23:40 Dr. Lentz agrees to admit to the ICU for tonight on BiPAP with antibiotics. Time/Spoke to Consulting Phy: 23:45 eICU agrees to consult on the patient. Impression Primary Impression: COPD exacerbation Additional Impression: UTI (urinary tract infection) Qualified Codes: N30.00 - Acute cystitis without hematuria Disposition: ADMITTED INPATIENT Condition: Stable Admissions Decision to Admit Reason: Admit from ER (General) Decision to Admit/Date: Mar 18, 2022 Time/Decision to Admit Time: 23:39 Departure-Patient Inst. Referrals: ELZA FERGUSON DO (PCP/Family) Primary Care Physician DOT LORENZ Mar 18, 2022 22:48
[2022-03-18 22:57] LABS: BILIRUBIN,URINE NEGATIVE (NEGATIVE); CLARITY,URINE CLEAR; COLOR,URINE YELLOW; GLUCOSE, URINE (UA) NEGATIVE (NEGATIVE); HEMATOCRIT 32 % (35-52); KETONES,URINE NEGATIVE (NEGATIVE); LEUKOCYTE ESTERASE ,URINE 2+ (NEGATIVE); LYMPHOCYTES # (AUTO) 1.3 10^3/uL (1.0-4.0); LYMPHOCYTES % (AUTO) 20 % (12-44); MEAN CORPUSCULAR VOLUME 98 fL (80-99); NITRITE,URINE POSITIVE (NEGATIVE); PROTEIN,URINE NEGATIVE (NEGATIVE)
[2022-03-18 22:59] LABS: BASOPHILS % (AUTO) 1 % (0-10); EOSINOPHILS # (AUTO) 0.1 10^3/uL (0.0-0.3); EOSINOPHILS % (AUTO) 2 % (0-10); HEMOGLOBIN 9.9 g/dL (11.5-16.0); MEAN CORPUSCULAR HEMOGLOBIN 31 pg (25-34); MEAN CORPUSCULAR HGB CONC 31 g/dL (32-36); MEAN PLATELET VOLUME 10.5 fL (9.0-12.2); MONOCYTES # (AUTO) 0.6 10^3/uL (0.0-1.0); MONOCYTES % (AUTO) 9 % (0-12); NEUTROPHILS # (AUTO) 4.3 10^3/uL (1.8-7.8); NEUTROPHILS % (AUTO) 68 % (42-75); PLATELET COUNT 144 10^3/uL (130-400); WHITE BLOOD COUNT 6.3 10^3/uL (4.3-11.0)
[2022-03-18] MEDS ORDERED: methylPREDNISolone 125 MG (Solu-MEDROL) VIAL IVP ONE (23:00)
[2022-03-18 23:09] LABS: BACTERIA,URINE LARGE /HPF; RBC,URINE 0-2 /HPF; SQUAMOUS EPITHELIAL CELL,UR 0-2 /HPF; WBC,URINE 25-50 /HPF
[2022-03-18 23:10] LABS: ALBUMIN 3.5 GM/DL (3.2-4.5)
[2022-03-18 23:12] LABS: CALCIUM 9.1 MG/DL (8.5-10.1)
[2022-03-18 23:13] LABS: TOTAL PROTEIN 8.3 GM/DL (6.4-8.2)
[2022-03-18 23:15] LABS: BILIRUBIN,TOTAL 0.4 MG/DL (0.1-1.0)
[2022-03-18 23:17] LABS: CREATININE SERUM 0.89 MG/DL (0.60-1.30)
[2022-03-19] VITALS (7 sets, daily range): BP systolic 148–195; BP diastolic 69–100
[2022-03-19] MEDS ORDERED: cefTRIAXone 1 GM PRE-MIX 50 ML IV ONE
[2022-03-19] MEDS ORDERED: ACETAMINOPHEN 325 MG TABLET PO PRN (00:45)
[2022-03-19] MEDS ORDERED: ONDANSETRON 4 MG/2 ML (SDV) Z0FRAN IV PRN (00:45)
--- NOTE | 2022-03-19 00:53 | Tele-ICU Progress Note ---
Progress Note 81F with COPD on 2L home O2, dementia, HTN, HLD presented with dyspnea and cough. In ED was not coughing, oxygenating well. ABG done with chronic CO2 retention with mild acute component, 7.35/65/149/34. She has been hypertensive in the 160-180 range, otherwise HD stable since arrival. Chest XR with possible small effusion. BiPap initiated, empiric antibiotics given. - COPD exacerbation: possible bronchospasm component, appears improved now. May be related to worsening baseline with chronic CO2 retention only evident on labs for the past 6 months. Continue supportive care,. Wean bipap as tolerated. - HTN: continue home rx. - social service consult in am - care needs seem to be exceeding granddaughter's capabilities. Patient with feces under fingernails, excoriations of bottom. Will need assessment for consideration of placement. Focused Exam Height, Weight, BMI Height: 5'4.00" Weight: 188lbs. 0.0oz. 85.616516iu; 29.00 BMI Method:Stated SULEIMAN GARBER MD Mar 19, 2022 00:53
[2022-03-19] MEDS ORDERED: NS IV 500 ML 500 ML IV PRN (01:15)
[2022-03-19 05:15] LABS: BASOPHILS % (AUTO) 0 % (0-10); EOSINOPHILS % (AUTO) 0 % (0-10); HEMATOCRIT 32 % (35-52); HEMOGLOBIN 10.1 g/dL (11.5-16.0); LYMPHOCYTES # (AUTO) 0.6 10^3/uL (1.0-4.0); LYMPHOCYTES % (AUTO) 12 % (12-44); MEAN CORPUSCULAR HEMOGLOBIN 30 pg (25-34); MEAN CORPUSCULAR HGB CONC 31 g/dL (32-36); MEAN CORPUSCULAR VOLUME 97 fL (80-99); MEAN PLATELET VOLUME 10.7 fL (9.0-12.2); MONOCYTES # (AUTO) 0.1 10^3/uL (0.0-1.0); MONOCYTES % (AUTO) 2 % (0-12); NEUTROPHILS # (AUTO) 4.5 10^3/uL (1.8-7.8); NEUTROPHILS % (AUTO) 86 % (42-75); PLATELET COUNT 111 10^3/uL (130-400); WHITE BLOOD COUNT 5.3 10^3/uL (4.3-11.0)
[2022-03-19 05:24] LABS: ALBUMIN 3.5 GM/DL (3.2-4.5); POTASSIUM 4.5 MMOL/L (3.6-5.0)
[2022-03-19 05:26] LABS: CALCIUM 9.1 MG/DL (8.5-10.1)
[2022-03-19 05:27] LABS: TOTAL PROTEIN 8.2 GM/DL (6.4-8.2)
[2022-03-19 05:28] LABS: BILIRUBIN,TOTAL 0.3 MG/DL (0.1-1.0)
[2022-03-19 05:30] LABS: CREATININE SERUM 0.83 MG/DL (0.60-1.30); PHOSPHORUS 3.3 MG/DL (2.3-4.7)
[2022-03-19 05:34] LABS: MAGNESIUM 1.9 MG/DL (1.6-2.4)
[2022-03-19] MEDS ORDERED: KCL 20 MEQ TAB (K-DUR) PO SCH (06:00)
[2022-03-19] MEDS ORDERED: POTASSIUM CL 10MEQ/50ML IVPB 50 ML IV SCH (06:00)
[2022-03-19] MEDS ORDERED: MAGNESIUM 1 GM/100 ML IVPB 100 ML IV SCH (06:00)
[2022-03-19] MEDS: CATHETER FLUSH 10 ML SYR IVP SCH ×3 (07:00→20:45)
--- NOTE | 2022-03-19 07:33 | History & Physical-Hospitalist ---
History of Present Illness HPI/Chief Complaint Chief complaint: Acute on chronic respiratory failure History of present illness: This is an 81-year-old female known to me from recent [facility] unit admission and multiple admissions at this hospital who presented to the ER with altered mental status found to have CO2 narcosis and acute on chronic respiratory failure. Rocephin given for empiric coverage of UTI. At this current time ABG appears to be venous so we will continue plan to move down to fourth floor. Source: patient Exam Limitations: clinical condition Date Seen 03/19/22 Time Seen by a Provider: 11:00 Attending Physician Jae Vences DO PCP Admitting Physician: Maya Hoskins DO Attending Physician: Maya Hoskins DO Referring Physician Date of Admission Mar 18, 2022 at 23:44 Home Medications & Allergies Home Medications Reviewed patient Home Medication Reconciliation performed by pharmacy medication reconciliations hvac operations technician and/or nursing. Patients Allergies have been reviewed. Allergies Allergies Coded Allergies cortisone (Verified Allergy, Unknown, 01/30/07) diphenhydramine (Verified Allergy, Unknown, 01/30/07) penicillin G (Verified Allergy, Unknown, 07/12/21) The patient is unaware that she has a penicillin allergy. She does not remember ever taking it and if she did what the reaction was. It has not been recently. Past Ojwttcx-Kizhbj-Jxbprv Hx Patient Social History Marrital Status: single Employed/Student: retired Tobacco Use?: No Smoking Status: Former Smoker Substance use?: No Alcohol Use?: No Pt feels they are or have been: No Immunizations Up To Date Date of Influenza Vaccine: Apr 22, 2020 First/Initial COVID19 Vaccinat: RECEIVED, UNK WHEN Second COVID19 Vaccination Taurus: RECEIVED, UNK WHEN Tetanus Booster (TDap): Unknown PED Vaccines UTD: Yes Date of Pneumonia Vaccine: Mar 23, 2016 Seasonal Allergies Seasonal Allergies: Yes Current Status Primary Language: Guinean Preferred Spoken Language: Grenadian Past Medical History Surgeries: Section, Gallbladder, Hysterectomy, Oophorectomy, Orthopedic, Tonsillectomy Pneumonia, COPD High Cholesterol, Hypertension Sexually Transmitted Disease: No UTI-Chronic Gastroesophageal Reflux Arthritis Hearing Impairment: Hard of Hearing Blood Disorders: Yes (ANEMIA) Adverse Reaction/Blood Tranf: No PMHx: HTN CHF SurgHx: Cholecystectomy C section Hysterectomy Breast biopsy Family Medical History No Pertinent Family Hx, Cancer, COPD, Diabetes, Hypertension Review of Systems Constitutional: see HPI, malaise, weakness Physical Exam Physical Exam Vital Signs Vital Signs - First Documented Capillary Refill : Less Than 3 Seconds Height, Weight, BMI Height: 5'4.00" Weight: 188lbs. 0.0oz. 85.495625zx; 31.50 BMI Method:Stated General Appearance: No Apparent Distress, Chronically ill Eyes: Right Eye Normal Inspection, Right Eye PERRL HEENT: PERRL/EOMI, Normal ENT Inspection, Pharynx Normal, Moist Mucous Membranes Neck: Full Range of Motion, Normal Inspection, Non Tender Respiratory: Chest Non Tender, Lungs Clear, No Accessory Muscle Use, No Respiratory Distress, Decreased Breath Sounds Cardiovascular: Regular Rate, Rhythm, No Edema, No Gallop, No JVD, No Murmur, Normal Peripheral Pulses Gastrointestinal: Normal Bowel Sounds, No Organomegaly, No Pulsatile Mass, Non Tender, Soft Back: Normal Inspection, No CVA Tenderness, No Vertebral Tenderness Extremity: Normal Capillary Refill, Normal Inspection, Normal Range of Motion, Non Tender, No Calf Tenderness, No Pedal Edema Neurologic/Psychiatric: Alert, Oriented x3, No Motor/Sensory Deficits, Normal Mood/Affect, Depressed Affect Skin: Normal Color, Warm/Dry Lymphatic: No Adenopathy Results Results/Procedures Labs Laboratory Tests 03/18/22 22:45 03/19/22 04:40 Patient resulted labs reviewed. Assessment/Plan Admission Diagnosis Assessment: Acute on chronic respiratory failure UTI COPD Dementia Plan: Supportive care O2 Admission Status: Inpatient Order (span 2 midnights) Reason for Inpatient Admission: Respiratory failure MAYA HOSKINS DO Mar 19, 2022 07:33
[2022-03-19] MEDS ORDERED: ACETAMINOPHEN 500 MG TAB (TYLENOL) PO PRN (08:30)
[2022-03-19] MEDS ORDERED: DICLOFENAC 1% GEL 100 GM (VOLTAREN) TUBE TOP PRN (08:30)
[2022-03-19] MEDS: meTOproloL SUCCINATE 50 MG (TOPROL XL) TAB PO SCH (08:34)
[2022-03-19] MEDS: LORATADINE (CLARITIN) 10 MG TAB PO SCH (08:34)
[2022-03-19] MEDS: lisINopril 40 MG (PRINIVIL) TABLET PO SCH (08:34)
[2022-03-19] MEDS: ASPIRIN E.C. 81 MG (ECOTRIN) TAB PO SCH (08:34)
[2022-03-19] MEDS: METOCLOPRAMIDE 10 MG (REGLAN) TAB PO SCH ×2 (08:34→20:45)
[2022-03-19] MEDS: amLODIPine 5 MG (NORVASC) TAB PO SCH (08:34)
[2022-03-19] MEDS: FUROSEMIDE 20 MG (LASIX) TAB PO SCH (08:34)
--- NOTE | 2022-03-19 08:47 | Tele-ICU Progress Note ---
Progress Note Video rounds completed 81 y/o female admitted with exaerbation of COPD and hypoxia Doing well this am Sitting up in bed , talking on phone,eating breakfast VSS PLAN> continue BIPAP as needed Focused Exam Height, Weight, BMI Height: 5'4.00" Weight: 188lbs. 0.0oz. 85.173615jg; 31.50 BMI Method:Stated Labs Laboratory Tests 03/18/22 22:45 03/19/22 04:40 Results Results/Procedures Labs Laboratory Tests 03/18/22 22:45 03/19/22 04:40 Patient resulted labs reviewed. Results Labs Labs Laboratory Tests 03/18/22 20:53: Influenza Type A (RT-PCR) Not Detected, Influenza Type B (RT-PCR) Not Detected, SARS-CoV-2 RNA (RT-PCR) Not Detected 03/18/22 21:20: Blood Gas Puncture Site RIGHT RADIAL, Blood Gas Patient Temperature 36.7, Arterial Blood pH 7.35L, Arterial Blood Partial Pressure CO2 65H, Arterial Blood Partial Pressure O2 149H, Arterial Blood HCO3 34H, Arterial Blood Total CO2 35.9H, Arterial Blood Oxygen Saturation 99, Arterial Blood Base Excess 8.0H, Iam Test YES-POS, Blood Gas Ventilator Setting NO, Blood Gas Inspired Oxygen 2L 03/18/22 22:45: White Blood Count 6.3, Red Blood Count 3.21L, Hemoglobin 9.9L, Hematocrit 32L, Mean Corpuscular Volume 98, Mean Corpuscular Hemoglobin 31, Mean Corpuscular Hemoglobin Concent 31L, Red Cell Distribution Width 13.6, Platelet Count 144, Mean Platelet Volume 10.5, Immature Granulocyte % (Auto) 0, Neutrophils (%) (Auto) 68, Lymphocytes (%) (Auto) 20, Monocytes (%) (Auto) 9, Eosinophils (%) (Auto) 2, Basophils (%) (Auto) 1, Neutrophils # (Auto) 4.3, Lymphocytes # (Auto) 1.3, Monocytes # (Auto) 0.6, Eosinophils # (Auto) 0.1, Basophils # (Auto) 0.0, Immature Granulocyte # (Auto) 0.0, Percent Immature Platelet Fraction 4.4, Urine Color YELLOW, Urine Clarity CLEAR, Urine pH 6.0, Urine Specific [place] 1.020, Urine Protein NEGATIVE, Urine Glucose (UA) NEGATIVE, Urine Ketones NEGATIVE, Urine Nitrite POSITIVEH, Urine Bilirubin NEGATIVE, Urine Urobilinogen 0.2, Urine Leukocyte Esterase 2+H, Urine RBC (Auto) TRACE-IH, Urine RBC 0-2, Urine WBC 25- 50H, Urine Squamous Epithelial Cells 0-2, Urine Crystals NONE, Urine Bacteria LARGEH, Urine Casts NONE, Urine Mucus NEGATIVE, Urine Culture Indicated YES, Sodium Level 139, Potassium Level 4.0, Chloride Level 101, Carbon Dioxide Level 27, Anion Gap 11, Blood Urea Nitrogen 24H, Creatinine 0.89, Estimat Glomerular Filtration Rate 64, BUN/Creatinine Ratio 27, Glucose Level 118H, Calcium Level 9.1, Corrected Calcium 9.5, Total Bilirubin 0.4, Aspartate Amino Transf (AST/SGOT) 72H, Alanine Aminotransferase (ALT/SGPT) 62H, Alkaline Phosphatase 146H, C-Reactive Protein High Sensitivity 1.39H, Total Protein 8.3H, Albumin 3.5 03/19/22 04:40: White Blood Count 5.3, Red Blood Count 3.32L, Hemoglobin 10.1L, Hematocrit 32L, Mean Corpuscular Volume 97, Mean Corpuscular Hemoglobin 30, Mean Corpuscular Hemoglobin Concent 31L, Red Cell Distribution Width 13.7, Platelet Count 111L, Mean Platelet Volume 10.7, Immature Granulocyte % (Auto) 0, Neutrophils (%) (Auto) 86H, Lymphocytes (%) (Auto) 12, Monocytes (%) (Auto) 2, Eosinophils (%) (Auto) 0, Basophils (%) (Auto) 0, Neutrophils # (Auto) 4.5, Lymphocytes # (Auto) 0.6L, Monocytes # (Auto) 0.1, Eosinophils # (Auto) 0.0, Basophils # (Auto) 0.0, Immature Granulocyte # (Auto) 0.0, Sodium Level 138, Potassium Level 4.5, Chl oride Level 102, Carbon Dioxide Level 25, Anion Gap 11, Blood Urea Nitrogen 23H, Creatinine 0.83, Estimat Glomerular Filtration Rate 70, BUN/Creatinine Ratio 28, Glucose Level 179H, Calcium Level 9.1, Corrected Calcium 9.5, Total Bilirubin 0.3, Aspartate Amino Transf (AST/SGOT) 69H, Alanine Aminotransferase (ALT/SGPT) 62H, Alkaline Phosphatase 146H, Total Protein 8.2, Albumin 3.5, Phosphorus Level 3.3, Magnesium Level 1.9 MARIELLE KENNEDY MD Mar 19, 2022 08:47
[2022-03-19 11:57] LABS: ABG OXYGEN SATURATION 82 % (94-100); ABG PCO2 54 MMHG (35-45); ABG PH 7.37 (7.37-7.43); ABG PO2 47 MMHG (79-93); ALLENS TEST YES-POS; INSPIRED O2 30%; PATIENT TEMP 36.1; VENTILATOR NO
[2022-03-19] MEDS: RT-ALBUTEROL/IPRATROPIUM 3 ML (DUONEB) VIAL INH SCH ×2 (14:41→21:36)
[2022-03-19] MEDS: cloNIDine 0.1 MG (CATAPRES) TAB PO PRN ×2 (15:26→20:44)
[2022-03-19] MEDS ORDERED: ENOXAPARIN 40 MG/0.4 ML (LOVENOX) SYR SC SCH (20:00)
[2022-03-19] MEDS ORDERED: ENOXAPARIN 120 MG/0.8 ML (LOVENOX) ONE (20:42)
[2022-03-19] MEDS: traZODone 100 MG (DESYREL) TAB PO SCH (20:45)
[2022-03-19] MEDS: MELATONIN 10 MG TABLET PO SCH (20:45)
[2022-03-19] MEDS: MONTELUKAST 10 MG (SINGULAIR) TAB PO SCH (20:45)
[2022-03-19] MEDS ORDERED: PARoxetine 20 MG (PAXIL) TAB PO SCH (21:00)
[2022-03-20] VITALS (7 sets, daily range): BP systolic 108–163; BP diastolic 58–80
[2022-03-20] MEDS: cefTRIAXone 1 GM/50 ML (PRE-MIX) IV SCH ×2 (00:20→23:14)
[2022-03-20] MEDS: RT-ALBUTEROL/IPRATROPIUM 3 ML (DUONEB) VIAL INH SCH ×4 (02:38→23:08)
[2022-03-20 05:41] LABS: BASOPHILS % (AUTO) 0 % (0-10); EOSINOPHILS % (AUTO) 1 % (0-10); HEMATOCRIT 28 % (35-52); HEMOGLOBIN 8.6 g/dL (11.5-16.0); LYMPHOCYTES # (AUTO) 1.1 10^3/uL (1.0-4.0); LYMPHOCYTES % (AUTO) 22 % (12-44); MEAN CORPUSCULAR HEMOGLOBIN 30 pg (25-34); MEAN CORPUSCULAR HGB CONC 31 g/dL (32-36); MEAN CORPUSCULAR VOLUME 97 fL (80-99); MEAN PLATELET VOLUME 11.1 fL (9.0-12.2); MONOCYTES # (AUTO) 0.4 10^3/uL (0.0-1.0); MONOCYTES % (AUTO) 8 % (0-12); NEUTROPHILS # (AUTO) 3.5 10^3/uL (1.8-7.8); NEUTROPHILS % (AUTO) 69 % (42-75); PLATELET COUNT 103 10^3/uL (130-400); WHITE BLOOD COUNT 5.1 10^3/uL (4.3-11.0)
[2022-03-20 06:06] LABS: ALBUMIN 3.1 GM/DL (3.2-4.5)
[2022-03-20 06:07] LABS: POTASSIUM 3.9 MMOL/L (3.6-5.0)
[2022-03-20 06:08] LABS: CALCIUM 8.6 MG/DL (8.5-10.1)
[2022-03-20 06:11] LABS: BILIRUBIN,TOTAL 0.2 MG/DL (0.1-1.0)
[2022-03-20 06:13] LABS: CREATININE SERUM 1.04 MG/DL (0.60-1.30)
[2022-03-20] MEDS: CATHETER FLUSH 10 ML SYR IVP SCH ×3 (06:34→22:02)
[2022-03-20] MEDS: lisINopril 40 MG (PRINIVIL) TABLET PO SCH (08:42)
[2022-03-20] MEDS: FUROSEMIDE 20 MG (LASIX) TAB PO SCH (08:42)
[2022-03-20] MEDS: ASPIRIN E.C. 81 MG (ECOTRIN) TAB PO SCH (08:42)
[2022-03-20] MEDS: meTOproloL SUCCINATE 50 MG (TOPROL XL) TAB PO SCH (08:42)
[2022-03-20] MEDS: LORATADINE (CLARITIN) 10 MG TAB PO SCH (08:42)
[2022-03-20] MEDS: amLODIPine 5 MG (NORVASC) TAB PO SCH (08:42)
[2022-03-20] MEDS: METOCLOPRAMIDE 10 MG (REGLAN) TAB PO SCH ×2 (08:42→20:33)
[2022-03-20] MEDS ORDERED: CLOP75TA28 PO (09:39)
[2022-03-20] MEDS ORDERED: SERT-412 PO (09:39)
[2022-03-20] MEDS ORDERED: APIX5TAB PO (09:40)
[2022-03-20] MEDS ORDERED: AMLO-250 PO (09:40)
[2022-03-20] MEDS ORDERED: DOCU-26 PO (09:42)
[2022-03-20] MEDS ORDERED: DOCUSATE SODIUM 100 MG (COLACE) CAP PO PRN (10:30)
[2022-03-20] MEDS: APIXABAN 5 MG (ELIQUIS) TABLET PO SCH ×2 (11:17→20:33)
[2022-03-20] MEDS: SERTRALINE 50 MG (ZOLOFT) TABLET PO SCH (11:17)
[2022-03-20] MEDS: CLOPIDOGREL 75 MG (PLAVIX) TABLET PO SCH (11:17)
--- NOTE | 2022-03-20 11:44 | Progress Note ---
Subjective Subjective/Events-last exam Patient states that she is feeling much better this AM. tolerating PO diet. Poor exercise tolerance at baseline. home oxygen need 2L NC. Review of Systems Pulmonary: Dyspnea (with exertion) Cardiovascular: No: Chest Pain, Palpitations Gastrointestinal: No: Nausea, Vomiting, Abdominal Pain Neurological: Weakness, Incoordination; No: Confusion Objective Exam Last Set of Vital Signs Vital Signs Date Time Temp Pulse Resp B/P (MAP) Pulse Ox O2 Delivery O2 Flow Rate FiO2 03/20/22 11:04 36.0 61 16 108/58 (75) 98 Nasal Cannula 2.00 Capillary Refill : Less Than 3 Seconds I&O Intake and Output 03/20/22 00:00 Intake Total 690 ml Output Total 550 ml Balance 140 ml Intake Oral 640 ml IV Total 50 ml Output Urine Total 550 ml # Voids 6 # Bowel Movements 1 Daily Weight Change No General: Alert, Oriented X3, Mild Distress (with minimal exertion) Lungs: Other (Diminished breath sounds at the bases, no wheezing or crackles) Heart: Regular Rate, No Murmurs Abdomen: Normal Bowel Sounds, Soft, No Tenderness Extremities: Other (1+ pitting edema equal bilaterally) Neuro: Normal Speech Results/Procedures Lab Laboratory Tests 03/19/22 11:50: Blood Gas Puncture Site RT RAD, Blood Gas Patient Temperature 36.1, Arterial Blood pH 7.37, Arterial Blood Partial Pressure CO2 54H, Arterial Blood Partial Pressure O2 47L, Arterial Blood HCO3 31H, Arterial Blood Total CO2 33.0H, Arterial Blood Oxygen Saturation 82L, Arterial Blood Base Excess 6.0H, Iam T est YES-POS, Blood Gas Ventilator Setting NO, Blood Gas Inspired Oxygen 30% 03/20/22 05:02: White Blood Count 5.1, Red Blood Count 2.89L, Hemoglobin 8.6L, Hematocrit 28L, M shanelle Corpuscular Volume 97, Mean Corpuscular Hemoglobin 30, Mean Corpuscular Hemoglobin Concent 31L, Red Cell Distribution Width 13.8, Platelet Count 103L, Mean Platelet Volume 11.1, Immature Granulocyte % (Auto) 0, Neutrophils (%) (Auto) 69, Lymphocytes (%) (Auto) 22, Monocytes (%) (Auto) 8, Eosinophils (%) (Auto) 1, Basophils (%) (Auto) 0, Neutrophils # (Auto) 3.5, Lymphocytes # (Auto) 1.1, Monocytes # (Auto) 0.4, Eosinophils # (Auto) 0.0, Basophils # (Auto) 0.0, I mmature Granulocyte # (Auto) 0.0, Sodium Level 140, Potassium Level 3.9, Chloride Level 102, Carbon Dioxide Level 28, Anion Gap 10, Blood Urea Nitrogen 32H, Creatinine 1.04, Estimat Glomerular Filtration Rate 53, BUN/Creatinine Ratio 31, Glucose Level 100, Calcium Level 8.6, Corrected Calcium 9.3, Magnesium Level 2.0, Total Bilirubin 0.2, Aspartate Amino Transf (AST/SGOT) 40H, Alanine Aminotransferase (ALT/SGPT) 43, Alkaline Phosphatase 114, Total Protein 7.0, Albumin 3.1L Microbiology 03/19/22 MRSA Screen - Final, Complete MRSA not isolated 03/18/22 Urine Culture - Final, Complete Klebsiella pneumoniae Assessment/Plan Assessment/Plan (1) Acute respiratory failure with hypercapnia Status: Acute Assessment & Plan: 03/20: Patient improving and now on home oxygen (2) COPD exacerbation Status: Acute Assessment & Plan: 03/20: MAT protocol (3) UTI due to Klebsiella species Status: Acute Assessment & Plan: 03/20: Sensitive to Rocephin, will continue IV antibiotics due to multiple recent UTIs (4) Normocytic anemia Status: Acute Assessment & Plan: 03/20: Iron panel pending, no signs of acute bleeding (5) Primary hypertension Status: Chronic Assessment & Plan: 03/20: Continue home meds (6) Dementia Status: Acute Qualifiers: Qualified Codes: F03.91 - Unspecified dementia with behavioral disturbance (7) Physical debility Status: Acute Assessment & Plan: 03/20: Recommend SNF placement at discharge MAC LINDSEY MD Mar 20, 2022 11:44
[2022-03-20] MEDS: MELATONIN 10 MG TABLET PO SCH (20:33)
[2022-03-20] MEDS: traZODone 100 MG (DESYREL) TAB PO SCH (20:33)
[2022-03-20] MEDS: MONTELUKAST 10 MG (SINGULAIR) TAB PO SCH (20:33)
[2022-03-21] MEDS: RT-ALBUTEROL/IPRATROPIUM 3 ML (DUONEB) VIAL INH SCH ×2 (03:08→09:22)
[2022-03-21 04:39] VITALS: BP 158/68
[2022-03-21] MEDS: CATHETER FLUSH 10 ML SYR IVP SCH (05:11)
[2022-03-21 05:31] LABS: BASOPHILS % (AUTO) 1 % (0-10); EOSINOPHILS # (AUTO) 0.1 10^3/uL (0.0-0.3); EOSINOPHILS % (AUTO) 3 % (0-10); HEMATOCRIT 28 % (35-52); HEMOGLOBIN 8.6 g/dL (11.5-16.0); LYMPHOCYTES # (AUTO) 1.1 10^3/uL (1.0-4.0); LYMPHOCYTES % (AUTO) 25 % (12-44); MEAN CORPUSCULAR HEMOGLOBIN 30 pg (25-34); MEAN CORPUSCULAR HGB CONC 31 g/dL (32-36); MEAN CORPUSCULAR VOLUME 97 fL (80-99); MEAN PLATELET VOLUME 10.9 fL (9.0-12.2); MONOCYTES # (AUTO) 0.4 10^3/uL (0.0-1.0); MONOCYTES % (AUTO) 8 % (0-12); NEUTROPHILS # (AUTO) 2.8 10^3/uL (1.8-7.8); NEUTROPHILS % (AUTO) 63 % (42-75); PLATELET COUNT 101 10^3/uL (130-400); WHITE BLOOD COUNT 4.5 10^3/uL (4.3-11.0)
[2022-03-21 05:43] LABS: POTASSIUM 4.2 MMOL/L (3.6-5.0)
[2022-03-21 05:44] LABS: CALCIUM 8.5 MG/DL (8.5-10.1)
[2022-03-21 05:45] LABS: TOTAL PROTEIN 6.7 GM/DL (6.4-8.2)
[2022-03-21 05:47] LABS: BILIRUBIN,TOTAL 0.3 MG/DL (0.1-1.0)
[2022-03-21 05:49] LABS: CREATININE SERUM 1.06 MG/DL (0.60-1.30)
[2022-03-21 07:30] VITALS: BP 156/67
[2022-03-21] MEDS: meTOproloL SUCCINATE 50 MG (TOPROL XL) TAB PO SCH (10:17)
[2022-03-21] MEDS: amLODIPine 5 MG (NORVASC) TAB PO SCH (10:17)
[2022-03-21] MEDS: SERTRALINE 50 MG (ZOLOFT) TABLET PO SCH (10:17)
[2022-03-21] MEDS: CLOPIDOGREL 75 MG (PLAVIX) TABLET PO SCH (10:18)
[2022-03-21] MEDS: METOCLOPRAMIDE 10 MG (REGLAN) TAB PO SCH (10:18)
[2022-03-21] MEDS: lisINopril 40 MG (PRINIVIL) TABLET PO SCH (10:18)
[2022-03-21] MEDS: LORATADINE (CLARITIN) 10 MG TAB PO SCH (10:18)
[2022-03-21] MEDS: APIXABAN 5 MG (ELIQUIS) TABLET PO SCH (10:18)
[2022-03-21 11:14] VITALS: BP 165/71
--- NOTE | 2022-03-21 12:21 | Discharge Summary ---
Discharge Summary Reconcile Patient Problems Problems Reviewed?: Yes Instructions for Patient Via [employer], Assessment/Instructions Acute Respiratory Failure: Resolved COPD Exacerbation UTI HTN Debility Advanced age [facility] Diet for Home: Cardiac Diet Hospital Course Date of Admission: Mar 18, 2022 at 23:44 Admission Diagnosis : Family Physician/Provider: Jae Vences DO Date of Discharge: 03/21/22 Discharge Diagnosis: Acute on Chronic Respiratory Failure with Hypercapneia AECOPD UTI HTN Debility Dementia Labs and Pending Lab Test: Laboratory Tests 03/21/22 05:05: White Blood Count 4.5, Red Blood Count 2.86L, Hemoglobin 8.6L, Hematocrit 28L, Mean Corpuscular Volume 97, Mean Corpuscular Hemoglobin 30, Mean Corpuscular Hemoglobin Concent 31L, Red Cell Distribution Width 13.9, Platelet Count 101L, Mean Platelet Volume 10.9, Immature Granulocyte % (Auto) 0, Neutrophils (%) (Auto) 63, Lymphocytes (%) (Auto) 25, Monocytes (%) (Auto) 8, Eosinophils (%) (Auto) 3, Basophils (%) (Auto) 1, Neutrophils # (Auto) 2.8, Lymphocytes # (Auto) 1.1, Monocytes # (Auto) 0.4, Eosinophils # (Auto) 0.1, Basophils # (Auto) 0.0, Immature Granulocyte # (Auto) 0.0, Sodium Level 142, Potassium Level 4.2, Chloride Level 101, Carbon Dioxide Level 30, Anion Gap 11, Blood Urea Nitrogen 38H, Creatinine 1.06, Estimat Glomerular Filtration Rate 52, BUN/Creatinine R atio 36, Glucose Level 95, Calcium Level 8.5, Corrected Calcium 9.3, Magnesium Level 2.0, Total Bilirubin 0.3, Aspartate Amino Transf (AST/SGOT) 38H, Alanine Aminotransferase (ALT/SGPT) 39, Alkaline Phosphatase 101, Total Protein 6.7, Albumin 3.0L Microbiology 03/19/22 MRSA Screen - Final, Complete MRSA not isolated 03/18/22 Urine Culture - Final, Complete Klebsiella pneumoniae Home Meds Active Reported Stool Softener (Docusate Sodium) 100 Mg Capsule 100 Mg PO DAILY PRN Amlodipine Besylate 5 Mg Tablet 5 Mg PO DAILY Eliquis (Apixaban) 5 Mg Tablet 5 Mg PO BID Clopidogrel (Clopidogrel Bisulfate) 75 Mg Tablet 75 Mg PO DAILY Sertraline HCl 25 Mg Tablet 25 Mg PO DAILY Diclofenac Sodium 1 % Gel..gram. 1 Applic TOP QID PRN APPLY TO BACK Melatonin 10 Mg Tablet 10 Mg PO HS Montelukast Sodium 10 Mg Tablet 10 Mg PO HS Tylenol Extra Strength (Acetaminophen) 500 Mg Tablet 500-1,000 Mg PO Q8H PRN Metoprolol Succinate 50 Mg Tab.er.24h 50 Mg PO DAILY Lisinopril 40 Mg Tablet 40 Mg PO DAILY Atorvastatin Calcium 20 Mg Tablet 20 Mg PO DAILY Metoclopramide HCl 10 Mg Tablet 10 Mg PO BID Trazodone HCl 100 Mg Tablet 100 Mg PO HS Cetirizine HCl 10 Mg Tablet 10 Mg PO DAILY Patient Allergies: Coded Allergies: cortisone (Verified Allergy, Unknown, 01/30/07) diphenhydramine (Verified Allergy, Unknown, 01/30/07) penicillin G (Verified Allergy, Unknown, 07/12/21) The patient is unaware that she has a penicillin allergy. She does not remember ever taking it and if she did what the reaction was. It has not been recently. Height (Feet): 5 Height (Inches): 4.00 Weight (Pounds): 188 Weight (Ounces): 0.0 Continued Medications: Acetaminophen (Tylenol Extra Strength) 500 Mg Tablet 500-1000 MG PO Q8H PRN for PAIN-MILD (1-4), TAB Amlodipine Besylate (Amlodipine Besylate) 5 Mg Tablet 5 MG PO DAILY, TAB Apixaban (Eliquis) 5 Mg Tablet 5 MG PO BID Atorvastatin Calcium (Atorvastatin Calcium) 20 Mg Tablet 20 MG PO DAILY, TAB Cetirizine HCl (Cetirizine HCl) 10 Mg Tablet 10 MG PO DAILY, TAB Clopidogrel Bisulfate (Clopidogrel) 75 Mg Tablet 75 MG PO DAILY Diclofenac Sodium (Diclofenac Sodium) 1 % Gel..gram. 1 APPLIC TOP QID PRN for PAIN-BREAKTHROUGH, EA APPLY TO BACK Docusate Sodium (Stool Softener) 100 Mg Capsule 100 MG PO DAILY PRN for CONSTIPATION-1ST LINE, CAP Lisinopril (Lisinopril) 40 Mg Tablet 40 MG PO DAILY, TAB Melatonin (Melatonin) 10 Mg Tablet 10 MG PO HS, TAB Metoclopramide HCl (Metoclopramide HCl) 10 Mg Tablet 10 MG PO BID, TAB Metoprolol Succinate (Metoprolol Succinate) 50 Mg Tab.er.24h 50 MG PO DAILY, TAB Montelukast Sodium (Montelukast Sodium) 10 Mg Tablet 10 MG PO HS, TAB Sertraline HCl (Sertraline HCl) 25 Mg Tablet 25 MG PO DAILY Trazodone HCl (Trazodone HCl) 100 Mg Tablet 100 MG PO HS, TAB Home Health Need/Face to Face Date of Face to Face: Mar 21, 2022 Clinical Findings: Generalized weakness and fatigue, Shortness of breath, Unsteady gait I have seen Pt [id number]: Yes Discharged To: Home Diagnosis/Conditions: See Above Patient is Homebound due to: CognItive deficits, Muscle weakness, Shortness of breath/distress Homebound Status Due to the above stated illness, injury or surgical procedure (medical condition or diagnosis) and associated clinical findings, the patient is denys ebound because of his/her inability to leave home except with aid of a supportive device and/or person AND leaving the home requires a considerable and taxing effort or is medically contraindicated. Pt req the following assistanc: Aid of another person, Walker Home Health Nursing Orders Home Health Services Order: Nursing Services, Physical Therapy-Evaluate & Treat Home Health Infusion Therapy Line Start Date: Mar 19, 2022 Therapy Orders Therapy Orders: PT to assess for OT Therapy Specific Orders: Teach enviro modifications/safety, Gait training Certify Stmt I certify that this patient is under my care and that I, a nurse practitioner or a physician; a email marketing assistant working with me, had a face to face encounter that -meets the physician face to face encounter requirements with this patient as dated. Discharge Physical Exam General: Alert, Oriented X3, Mild Distress (with minimal exertion) HEENT: Mucous Memb Moist/[place] Lungs: Clear to Auscultation, Normal Air Movement Heart: Regular Rate, No Murmurs Abdomen: Normal Bowel Sounds, Soft, No Tenderness Extremities: No Edema, No Tenderness/Swelling Neuro: Normal Speech, Cranial Nerves 3-12 NL Psych/Mental Status: Mental Status NL, Mood NL MAC LINDSEY MD Mar 21, 2022 12:18
[2022-03-21 15:42] VITALS: BP 165/71
== END 2022-03-21 15:00 | disposition home health service (06) | DRG 189 ==
LOC: EDUNIT# 19:55 → ER 19:56 → ICU 23:44 → 4TH 03-19 13:46
PROVIDERS: ADMIT Internal Medicine; ATTEND Family Medicine
PROC: 5A09357 Assistance with Respiratory Ventilation, Less than 24 Consecutive Hours, Continuous Positive Airway Pressure (ICD-10-PCS; principal; 2022-03-19)
DX: J96.22 Acute and chronic respiratory failure with hypercapnia (principal); J44.1 Chronic obstructive pulmonary disease with (acute) exacerbation; N39.0 Urinary tract infection, site not specified; D64.9 Anemia, unspecified; I10 Essential (primary) hypertension; K21.9 Gastro-esophageal reflux disease without esophagitis; F03.90 Unspecified dementia, unspecified severity, without behavioral disturbance, psychotic disturbance, mood disturbance, and anxiety; E78.00 Pure hypercholesterolemia, unspecified; Z20.822 Contact with and (suspected) exposure to COVID-19; R53.81 Other malaise; Z86.16 Personal history of COVID-19; Z79.82 Long term (current) use of aspirin; Z88.0 Allergy status to penicillin; Z88.8 Allergy status to other drugs, medicaments and biological substances; B96.1 Klebsiella pneumoniae [K. pneumoniae] as the cause of diseases classified elsewhere; Z91.81 History of falling
CPT/HCPCS: 36415; 71045; 80053; 81000; 82728; 82805; 83540; 83550; 83735; 84100; 85025; 86141; 86738; 87077; 87081; 87088; 87186; 87636; 94640; 94660; 94760; 99291

== ENCOUNTER 2022-04-30 07:09 | Emergency (ER) | payer MEDICARE, MEDICAID ==
[~2022-04-30] VITALS: Ht 162.5 cm; Wt 77.1 kg
[~2022-04-30 07:09] MED LIST changes: +APIX5TAB PO; +CLOP75TA28 PO; +DOCU-26 PO; +SERT-412 PO
--- NOTE | 2022-04-30 07:28 | ED Respiratory ---
General Chief Complaint: Respiratory Problems Stated Complaint: SOA - COUGH Nursing Triage Note: PT TO RM 7 BY WC WITH COMPLAINT OF SOA. PT STATES SHE WOKE UP FEELING SOA. PT HAS COPD AND WEARS 2LNC AT ALL TIMES. DID NOT DO A BREATHING TREATMENT THIS MORNING. Source: patient Exam Limitations: no limitations History of Present Illness Date Seen by Provider: Apr 30, 2022 Time Seen by Provider: 07:17 Initial Comments 81-year-old female with history of COPD, CHF on home oxygen 2 L via nasal cannula chronically presents to the emergency department for shortness of br eath. Symptoms started this morning abruptly, stating she felt fine when she went to bed last night. No recent fevers chills chest pain cough abdominal pain or changes in bowel or bladder habits. She has chronic swelling left greater than right secondary to hip surgery which is unchanged from baseline. She has not increased her oxygen at home and has not used any nebulizer or other treatments at home. No sick contacts. Allergies and Home Medications Allergies Coded Allergies: cortisone (Verified Allergy, Unknown, 01/30/07) diphenhydramine (Verified Allergy, Unknown, 01/30/07) penicillin G (Verified Allergy, Unknown, 07/12/21) The patient is unaware that she has a penicillin allergy. She does not remember ever taking it and if she did what the reaction was. It has not been recently. Patient Home Medication List Home Medication List Reviewed: Yes Acetaminophen (Tylenol Extra Strength) 500 Mg Tablet, 500-1,000 MG PO Q8H PRN for PAIN-MILD (1-4), (Reported) Entered as Reported by: ELZA AGUILAR on 10/11/211541 Amlodipine Besylate (Amlodipine Besylate) 5 Mg Tablet, 5 MG PO DAILY, (Reported) Entered as Reported by: LILA DOVER on 03/20/22 09 Apixaban (Eliquis) 5 Mg Tablet, 5 MG PO BID, (Reported) Entered as Reported by: LILA DOVER on 03/20/22 09 Atorvastatin Calcium (Atorvastatin Calcium) 20 Mg Tablet, 20 MG PO DAILY, (Reported) Entered as Reported by: ELZA AGUILAR on 10/11/21 154 Cetirizine HCl (Cetirizine HCl) 10 Mg Tablet, 10 MG PO DAILY, (Reported) Entered as Reported by: ELZA AGUILAR on 10/11/21 154 Clopidogrel Bisulfate (Clopidogrel) 75 Mg Tablet, 75 MG PO DAILY, (Reported) Entered as Reported by: LILA DOVER on 03/20/22 0939 Diclofenac Sodium (Diclofenac Sodium) 1 % Gel..gram., 1 APPLIC TOP QID PRN for PAIN-BREAKTHROUGH, (Reported) Entered as Reported by: ELZA AGUILAR on 11/09/21 111 Docusate Sodium (Stool Softener) 100 Mg Capsule, 100 MG PO DAILY PRN for CONSTIPATION-1ST LINE, (Reported) Entered as Reported by: LILA DOVER on 03/20/22 09 Lisinopril (Lisinopril) 40 Mg Tablet, 40 MG PO DAILY, (Reported) Entered as Reported by: ELZA AGUILAR on 10/11/211541 Melatonin (Melatonin) 10 Mg Tablet, 10 MG PO HS, (Reported) Entered as Reported by: ELZA AGUILAR on 11/09/21 111 Metoclopramide HCl (Metoclopramide HCl) 10 Mg Tablet, 10 MG PO BID, (Reported) Entered as Reported by: ELZA AGUILAR on 10/11/211541 Metoprolol Succinate (Metoprolol Succinate) 50 Mg Tab.er.24h, 50 MG PO DAILY, (Reported) Entered as Reported by: ELZA AGUILAR on 10/11/211541 Montelukast Sodium (Montelukast Sodium) 10 Mg Tablet, 10 MG PO HS, (Reported) Entered as Reported by: ELZA AGUILAR on 10/11/211541 Sertraline HCl (Sertraline HCl) 25 Mg Tablet, 25 MG PO DAILY, (Reported) Entered as Reported by: LILA DOVER on 03/20/22 09 Trazodone HCl (Trazodone HCl) 100 Mg Tablet, 100 MG PO HS, (Reported) Entered as Reported by: ELZA AGUILAR on 10/11/211541 Review of Systems Review of Systems Constitutional: no symptoms reported EENTM: no symptoms reported Respiratory: short of breath Cardiovascular: no symptoms reported Gastrointestinal: no symptoms reported Genitourinary: no symptoms reported Musculoskeletal: no symptoms reported Skin: no symptoms reported Psychiatric/Neurological: No Symptoms Reported Hematologic/Lymphatic: No Symptoms Reported Immunological/Allergic: no symptoms reported Past Uraljgt-Sracgy-Mouuhi Hx Patient Social History Tobacco Use?: No Smoking Status: Former Smoker Use of E-Cig and/or Vaping dev: No Substance use?: No Alcohol Use?: No Pt feels they are or have been: No Immunizations Up To Date Tetanus Booster (TDap): Less than 5yrs PED Vaccines UTD: Yes First/Initial COVID19 Vaccinat: RECEIVED, UNK WHEN Second COVID19 Vaccination Taurus: RECEIVED, UNK WHEN Third COVID19 Vaccination Date: RECEIVED, UNK WHEN Seasonal Allergies Seasonal Allergies: Yes Past Medical History Surgery/Hospitalization HX: htn, gerd, high cholesterol, asthma Surgeries: Yes (RIGHT BREAST BIOPSY,ROTATOR CUFF) Section, Gallbladder, Hysterectomy, Oophorectomy, Orthopedic, Tonsillectomy Respiratory: Yes (COVID-19 12/2020-NO HOSPITALIZATION OR TREATMENT) Pneumonia, COPD Cardiac: Yes High Cholesterol, Hypertension Neurological: No Reproductive Disorders: No Sexually Transmitted Disease: No Genitourinary: Yes UTI-Chronic Gastrointestinal: Yes Gastroesophageal Reflux Musculoskeletal: Yes (FALLS) Arthritis Endocrine: No HEENT: No Hearing Impairment: Hard of Hearing Cancer: No Psychosocial: No Blood Disorders: Yes (ANEMIA) Adverse Reaction/Blood Tranf: No Family Medical History Reviewed Nursing Family Hx Cancer, COPD, Diabetes, Hypertension Physical Exam Vital Signs - First Documented 04/30/22 07:10 Temp 36.6 Pulse 74 Resp 16 B/P (MAP) 177/84 (115) Pulse Ox 92 O2 Delivery Nasal Cannula O2 Flow Rate 2.00 Capillary Refill : Less Than 3 Seconds Height: 5'4.00" Weight: 188lbs. 0.0oz. 85.246960kb; 29.00 BMI Method:Stated General Appearance: WD/WN, no apparent distress HEENT: PERRL/EOMI, normal ENT inspection, TMs normal, pharynx normal Neck: non-tender, full range of motion, supple, normal inspection Respiratory: chest non-tender, no respiratory distress, other (Patient has decreased breath sounds bilaterally, worse in the left base. Scant inspiratory expiratory wheezing) Cardiovascular: regular rate, rhythm, no edema, no gallop, no JVD, no murmur Gastrointestinal: normal bowel sounds, non tender, soft, no organomegaly Extremities: normal range of motion, non-tender, normal capillary refill, other (Mild swelling of the left lower extremity from the knee down. 1+ nonpitting. Right lower extremity is normal.) Neurologic/Psychiatric: no motor/sensory deficits, alert, normal mood/affect, oriented x 3 Skin: normal color, warm/dry Lymphatic: no adenopathy Procedures/Interventions Suture Size: 5-0 Progress/Results/Core Measures Suspected Sepsis SIRS Temperature: Pulse: 74 Respiratory Rate: 16 Laboratory Tests 04/30/22 07:15: White Blood Count 5.2 Blood Pressure 177 /84 Mean: 115 Laboratory Tests 04/30/22 07:15: Creatinine 0.95, Platelet Count 126L, Total Bilirubin 0.4 Results/Orders Lab Results Laboratory Tests Test 04/30/22 07:15 04/30/22 07:30 04/30/22 08:21 Range/Units White Blood Count 5.2 4.3-11.0 10^3/uL Red Blood Count 3.58 L 3.80-5.11 10^6/uL Hemoglobin 10.7 L 11.5-16.0 g/dL Hematocrit 35 35-52 % Mean Corpuscular Volume 99 80-99 fL Mean Corpuscular Hemoglobin 30 25-34 pg Mean Corpuscular Hemoglobin Concent 30 L 32-36 g/dL Red Cell Distribution Width 13.9 10.0-14.5 % Platelet Count 126 L 130-400 10^3/uL Mean Platelet Volume 11.0 9.0-12.2 fL Immature Granulocyte % (Auto) 0 % Neutrophils (%) (Auto) 68 42-75 % Lymphocytes (%) (Auto) 22 12-44 % Monocytes (%) (Auto) 7 0-12 % Eosinophils (%) (Auto) 2 0-10 % Basophils (%) (Auto) 0 0-10 % Neutrophils # (Auto) 3.5 1.8-7.8 10^3/uL Lymphocytes # (Auto) 1.1 1.0-4.0 10^3/uL Monocytes # (Auto) 0.4 0.0-1.0 10^3/uL Eosinophils # (Auto) 0.1 0.0-0.3 10^3/uL Basophils # (Auto) 0.0 0.0-0.1 10^3/uL Immature Granulocyte # (Auto) 0.0 0.0-0.1 10^3/uL Percent Immature Platelet Fraction 4.4 0.0-7.6 % Sodium Level 142 135-145 MMOL/L Potassium Level 4.4 3.6-5.0 MMOL/L Chloride Level 101 98-107 MMOL/L Carbon Dioxide Level 31 21-32 MMOL/L Anion Gap 10 5-14 MMOL/L Blood Urea Nitrogen 21 H 7-18 MG/DL Creatinine 0.95 0.60-1.30 MG/DL Estimat Glomerular Filtration Rate 59 BUN/Creatinine Ratio 22 Glucose Level 128 H 70-105 MG/DL Calcium Level 9.1 8.5-10.1 MG/DL Corrected Calcium 9.3 8.5-10.1 MG/DL Total Bilirubin 0.4 0.1-1.0 MG/DL Aspartate Amino Transf (AST/SGOT) 32 5-34 U/L Alanine Aminotransferase (ALT/SGPT) 25 0-55 U/L Alkaline Phosphatase 107 40-136 U/L Troponin I < 0.028 <0.028 NG/ML B-Type Natriuretic Peptide 94.4 <100.0 PG/ML Total Protein 7.9 6.4-8.2 GM/DL Albumin 3.8 3.2-4.5 GM/DL Procalcitonin 0.04 <0.10 NG/ML SARS-CoV-2 RNA (RT-PCR) Not Detected Not Detecte My Orders Orders - SARAAWILDA DO Cbc With Automated Diff (04/30/22 07:22) Comprehensive Metabolic Panel (04/30/22 07:22) Bnp Mya (04/30/22 07:22) Procalcitonin (Pct) (04/30/22 07:22) Chest 1 View, Ap/Pa Only (04/30/22 07:22) Troponin I Mya (04/30/22 07:22) Ekg Tracing (04/30/22 07:22) Lactic Acid Analyzer (04/30/22 07:22) Albuterol/Ipra Inhalation Soln (Duoneb I (04/30/22 07:30) Svn Small Volume Nebulizer (04/30/22 07:22) Covid 19 Inhouse Test (04/30/22 07:22) Blood Culture (04/30/22 07:22) Ed Iv/Invasive Line Start (04/30/22 07:22) O2 (04/30/22 07:22) Ua Culture If Indicated (04/30/22 08:13) Medications Given in ED Current Medications Medications Dose Ordered Sig/Trevon Route Start Time Stop Time Status Last Admin Dose Admin Albuterol/ Ipratropium 3 ml ONCE ONCE INH 04/30/22 07:30 04/30/22 07:31 DC 04/30/22 07:53 3 ML Vital Signs/I&O 04/30/22 04/30/22 04/30/22 07:10 07:10 07:53 Temp 36.6 Pulse 74 Resp 16 B/P (MAP) 177/84 (115) Pulse Ox 92 92 O2 Delivery Nasal Cannula Nasal Cannula Nasal Cannula O2 Flow Rate 2.00 2.00 Capillary Refill : Less Than 3 Seconds Blood Pressure Mean: 115 Departure Communication (Admissions) Patient is hemodynamically stable. Oxygen stable on her home 2 L of oxygen via nasal cannula. Initial is improved and resolved. SHe is comfortable with going home. Chest x-ray shows no evidence for pneumonia. I will start her on prednisone and discharged with close follow-up. Impression Primary Impression: COPD exacerbation Disposition: HOME, SELF-CARE Condition: Stable Departure-Patient Inst. Referrals: ELZA FERGUSON DO (PCP/Family) Primary Care Physician Patient Instructions: Chronic Obstructive Pulmonary Disease (COPD), Including Emphysema Add. Discharge Instructions: I believe your shortness of breath is related to COPD. Continue home oxygen as needed, you may increase this up to 4 L continuously if necessary but if you nee d to increase it more than that I recommend you return to the emergency department. Use your albuterol rescue inhaler as needed. I would talk to your primary care doctor about possible nebulizer for home use as you seem to get quite a bit of relief with this. checking department supervisor the prednisone and take it daily as prescribed until it is gone to help with the inflammation in your lungs. There is no evidence for pneumonia or other infectious process at this time. Please follow-up with your primary doctor on Sunday or Sunday. Return to the emergency department for any severe concerns or if your symptoms change in any way concerning to you. All discharge instructions reviewed with patient and/or family. Voiced understanding. Scripts Prednisone (Prednisone) 50 Mg Tab 50 MG PO DAILY for 5 Days, #5 TAB Prov: AWILDA RUIZ DO 04/30/22 AWILDA RUIZ DO Apr 30, 2022 07:28
[2022-04-30] MEDS ORDERED: RT-ALBUTEROL/IPRATROPIUM 3 ML (DUONEB) VIAL INH ONE (07:30)
[2022-04-30 07:34] LABS: BASOPHILS % (AUTO) 0 % (0-10); EOSINOPHILS # (AUTO) 0.1 10^3/uL (0.0-0.3); EOSINOPHILS % (AUTO) 2 % (0-10); HEMATOCRIT 35 % (35-52); HEMOGLOBIN 10.7 g/dL (11.5-16.0); LYMPHOCYTES # (AUTO) 1.1 10^3/uL (1.0-4.0); LYMPHOCYTES % (AUTO) 22 % (12-44); MEAN CORPUSCULAR HEMOGLOBIN 30 pg (25-34); MEAN CORPUSCULAR HGB CONC 30 g/dL (32-36); MEAN CORPUSCULAR VOLUME 99 fL (80-99); MONOCYTES # (AUTO) 0.4 10^3/uL (0.0-1.0); MONOCYTES % (AUTO) 7 % (0-12); NEUTROPHILS # (AUTO) 3.5 10^3/uL (1.8-7.8); NEUTROPHILS % (AUTO) 68 % (42-75); PLATELET COUNT 126 10^3/uL (130-400); WHITE BLOOD COUNT 5.2 10^3/uL (4.3-11.0)
[2022-04-30 07:36] LABS: ALBUMIN 3.8 GM/DL (3.2-4.5); CHLORIDE 101 MMOL/L (98-107); POTASSIUM 4.4 MMOL/L (3.6-5.0); SODIUM 142 MMOL/L (135-145)
[2022-04-30 07:37] LABS: CALCIUM 9.1 MG/DL (8.5-10.1)
[2022-04-30 07:38] LABS: GLUCOSE 128 MG/DL (70-105); TOTAL PROTEIN 7.9 GM/DL (6.4-8.2)
[2022-04-30 07:39] LABS: CARBON DIOXIDE 31 MMOL/L (21-32)
[2022-04-30 07:40] LABS: BILIRUBIN,TOTAL 0.4 MG/DL (0.1-1.0)
[2022-04-30 07:42] LABS: ALKALINE PHOSPHATASE 107 U/L (40-136); CREATININE SERUM 0.95 MG/DL (0.60-1.30); GFR ESTIMATED 59
[2022-04-30 07:43] LABS: BUN/CREATININE RATIO 22
[2022-04-30 07:45] LABS: ALANINE AMINOTRANSFERASE 25 U/L (0-55)
--- NOTE | 2022-04-30 08:18 | Diagnostic Imaging Report ---
EXAMINATION: Chest 1 view HISTORY: Short of breath COMPARISON: 03/18/2022 FINDINGS: The lungs are clear without edema or pneumonia. No pleural effusion or pneumothorax. Heart size is normal. IMPRESSION: 1. Clear lungs. Dictated by: Dictated on workstation # [id number]
[2022-04-30 08:30] LABS: BILIRUBIN,URINE NEGATIVE (NEGATIVE); CLARITY,URINE SL CLOUDY; COLOR,URINE YELLOW; GLUCOSE, URINE (UA) NEGATIVE (NEGATIVE); KETONES,URINE NEGATIVE (NEGATIVE); LEUKOCYTE ESTERASE ,URINE 1+ (NEGATIVE); NITRITE,URINE POSITIVE (NEGATIVE); PH,URINE 7.5 (5-9); PROTEIN,URINE TRACE (NEGATIVE)
[2022-04-30] MEDS ORDERED: PRD50T PO (08:30)
[2022-04-30 08:40] LABS: BACTERIA,URINE LARGE /HPF; RBC,URINE RARE /HPF; SQUAMOUS EPITHELIAL CELL,UR RARE /HPF
[2022-04-30 08:41] VITALS: BP 115/66
== END 2022-04-30 08:41 | disposition home or self-care (01) ==
LOC: EDUNIT# 07:09 → ER 07:11
DX: J44.1 Chronic obstructive pulmonary disease with (acute) exacerbation (principal); Z87.891 Personal history of nicotine dependence; Z99.81 Dependence on supplemental oxygen; Z20.822 Contact with and (suspected) exposure to COVID-19
CPT/HCPCS: 36415; 71045; 80053; 81000; 83880; 84145; 84484; 85025; 87077; 87088; 87186; 87636; 93005; 94640

== ENCOUNTER 2022-07-13 08:19 | Emergency (ER) | payer MEDICARE, MEDICAID ==
[~2022-07-13] VITALS: Ht 162 cm; Wt 80.5 kg
[~2022-07-13 08:19] MED LIST changes: +PRD50T PO
[2022-07-13] MEDS ORDERED: RT-ALBUTEROL/IPRATROPIUM 3 ML (DUONEB) VIAL INH ONE (08:30)
[2022-07-13] MEDS ORDERED: methylPREDNISolone 125 MG (Solu-MEDROL) VIAL IM ONE (08:30)
--- NOTE | 2022-07-13 08:36 | ED Respiratory ---
General Chief Complaint: Respiratory Problems Stated Complaint: SOB | COPD Source: patient Exam Limitations: no limitations History of Present Illness Date Seen by Provider: Jul 13, 2022 Time Seen by Provider: 08:25 Initial Comments 81-year-old female presents with chief complaint of "I cannot breathe." She states symptoms present for about 3 days and progressively worsening. She has a history of COPD, CHF. She does not have a nebulizer at home but has been using her rescue inhaler without much relief. He has a chronic productive cough which is unchanged with her recent illness. No fevers, chills or sick contacts. No nausea vomiting abdominal pain. No chest pain. She does wear oxygen at home, 2 L via nasal cannula [id number]. She believes her swelling in her legs is at baseline. She does have slightly greater swelling in her left leg which is normal for her. Allergies and Home Medications Allergies Coded Allergies: cortisone (Verified Allergy, Unknown, 01/30/07) diphenhydramine (Verified Allergy, Unknown, 01/30/07) penicillin G (Verified Allergy, Unknown, 07/12/21) The patient is unaware that she has a penicillin allergy. She does not remember ever taking it and if she did what the reaction was. It has not been recently. Patient Home Medication List Home Medication List Reviewed: Yes Acetaminophen (Tylenol Extra Strength) 500 Mg Tablet, 500-1,000 MG PO Q8H PRN for PAIN-MILD (1-4), (Reported) Entered as Reported by: ELZA AGUILAR on 10/11/211541 Amlodipine Besylate (Amlodipine Besylate) 5 Mg Tablet, 5 MG PO DAILY, (Reported) Entered as Reported by: LILA DOVER on 03/20/22 09 Apixaban (Eliquis) 5 Mg Tablet, 5 MG PO BID, (Reported) Entered as Reported by: LILA DOVER on 03/20/22939 Atorvastatin Calcium (Atorvastatin Calcium) 20 Mg Tablet, 20 MG PO DAILY, (Reported) Entered as Reported by: ELZA AGUILAR on 10/11/211541 Cetirizine HCl (Cetirizine HCl) 10 Mg Tablet, 10 MG PO DAILY, (Reported) Entered as Reported by: ELZA AGUILAR on 10/11/211541 Clopidogrel Bisulfate (Clopidogrel) 75 Mg Tablet, 75 MG PO DAILY, (Reported) Entered as Reported by: LILA DOVER on 03/20/22 09 Diclofenac Sodium (Diclofenac Sodium) 1 % Gel..gram., 1 APPLIC TOP QID PRN for PAIN-BREAKTHROUGH, (Reported) Entered as Reported by: ELZA AGUILAR on 11/09/21 111 Docusate Sodium (Stool Softener) 100 Mg Capsule, 100 MG PO DAILY PRN for CONSTIPATION-1ST LINE, (Reported) Entered as Reported by: LILA DOVER on 03/20/22 0942 Lisinopril (Lisinopril) 40 Mg Tablet, 40 MG PO DAILY, (Reported) Entered as Reported by: ELZA AGUILAR on 10/11/21 154 Melatonin (Melatonin) 10 Mg Tablet, 10 MG PO HS, (Reported) Entered as Reported by: ELZA AGUILAR on 11/09/21 111 Metoclopramide HCl (Metoclopramide HCl) 10 Mg Tablet, 10 MG PO BID, (Reported) Entered as Reported by: ELZA AGUILAR on 10/11/21 154 Metoprolol Succinate (Metoprolol Succinate) 50 Mg Tab.er.24h, 50 MG PO DAILY, (Reported) Entered as Reported by: ELZA AGUILAR on 10/11/21 154 Montelukast Sodium (Montelukast Sodium) 10 Mg Tablet, 10 MG PO HS, (Reported) Entered as Reported by: ELZA AGUILAR on 10/11/21 154 Prednisone (Prednisone) 50 Mg Tab, 50 MG PO DAILY Prescribed by: AWILDA RUIZ MD on 04/30/22 0830 Sertraline HCl (Sertraline HCl) 25 Mg Tablet, 25 MG PO DAILY, (Reported) Entered as Reported by: LILA DOVER on 03/20/22 09 Trazodone HCl (Trazodone HCl) 100 Mg Tablet, 100 MG PO HS, (Reported) Entered as Reported by: ELZA AGUILAR on 10/11/21 154 Review of Systems Review of Systems Constitutional: no symptoms reported EENTM: no symptoms reported Respiratory: cough, short of breath Cardiovascular: no symptoms reported Gastrointestinal: no symptoms reported Genitourinary: no symptoms reported Musculoskeletal: no symptoms reported Skin: no symptoms reported Psychiatric/Neurological: No Symptoms Reported Hematologic/Lymphatic: No Symptoms Reported Immunological/Allergic: no symptoms reported Past Eleicbs-Xaxzpd-Awsjbn Hx Patient Social History Tobacco Use?: Yes Use of E-Cig and/or Vaping dev: No Substance use?: No Alcohol Use?: No Immunizations Up To Date Tetanus Booster (TDap): Less than 5yrs PED Vaccines UTD: Yes First/Initial COVID19 Vaccinat: RECEIVED, UNK WHEN Second COVID19 Vaccination Taurus: RECEIVED, UNK WHEN Third COVID19 Vaccination Date: RECEIVED, UNK WHEN Seasonal Allergies Seasonal Allergies: Yes Past Medical History Surgery/Hospitalization HX: htn, gerd, high cholesterol, asthma Surgeries: Yes (RIGHT BREAST BIOPSY,ROTATOR CUFF) Section, Gallbladder, Hysterectomy, Oophorectomy, Orthopedic, Tonsillectomy Respiratory: Yes (COVID-19 12/2020-NO HOSPITALIZATION OR TREATMENT) Pneumonia, COPD Cardiac: Yes High Cholesterol, Hypertension Neurological: No Reproductive Disorders: No Sexually Transmitted Disease: No Genitourinary: Yes UTI-Chronic Gastrointestinal: Yes Gastroesophageal Reflux Musculoskeletal: Yes (FALLS) Arthritis Endocrine: No HEENT: No Hearing Impairment: Hard of Hearing Cancer: No Psychosocial: No Blood Disorders: Yes (ANEMIA) Adverse Reaction/Blood Tranf: No Family Medical History Reviewed Nursing Family Hx Cancer, COPD, Diabetes, Hypertension Physical Exam Vital Signs - First Documented 07/13/22 07/13/22 08:26 08:35 Temp 35.4 Pulse 84 Resp 18 B/P (MAP) 174/98 (123) Pulse Ox 98 O2 Delivery Nasal Cannula O2 Flow Rate 2.00 Capillary Refill : Height: 5'4.00" Weight: 188lbs. 0.0oz. 85.334018zy; 29.00 BMI Method:Stated General Appearance: WD/WN, no apparent distress HEENT: normal ENT inspection, pharynx normal Neck: non-tender, supple Respiratory: chest non-tender, other (No respiratory distress. Dramatically decreased breath sounds bilaterally. Inspiratory and expiratory wheezing.) Cardiovascular: regular rate, rhythm, no murmur, other (Minimal edema bilateral lower extremities, left slightly greater than right) Gastrointestinal: normal bowel sounds, non tender, soft, no organomegaly Extremities: normal range of motion, non-tender, normal inspection, normal capillary refill, other (Edema as described above) Neurologic/Psychiatric: alert, normal mood/affect, oriented x 3 Skin: normal color, warm/dry Lymphatic: no adenopathy Procedures/Interventions Suture Size: 5-0 Progress/Results/Core Measures Suspected Sepsis SIRS Temperature: Pulse: Respiratory Rate: Laboratory Tests 07/13/22 08:35: White Blood Count 4.2L Blood Pressure / Mean: Laboratory Tests 07/13/22 08:35: Creatinine 0.84, Platelet Count 124L, Total Bilirubin 0.3 Results/Orders Lab Results Laboratory Tests Test 07/13/22 08:32 07/13/22 08:35 Range/Units Influenza Type A (RT-PCR) Not Detected Not Detecte Influenza Type B (RT-PCR) Not Detected Not Detecte SARS-CoV-2 RNA (RT-PCR) Not Detected Not Detecte White Blood Count 4.2 L 4.3-11.0 10^3/uL Red Blood Count 3.27 L 3.80-5.11 10^6/uL Hemoglobin 9.7 L 11.5-16.0 g/dL Hematocrit 32 L 35-52 % Mean Corpuscular Volume 97 80-99 fL Mean Corpuscular Hemoglobin 30 25-34 pg Mean Corpuscular Hemoglobin Concent 31 L 32-36 g/dL Red Cell Distribution Width 13.9 10.0-14.5 % Platelet Count 124 L 130-400 10^3/uL Mean Platelet Volume 11.3 9.0-12.2 fL Immature Granulocyte % (Auto) 0 % Neutrophils (%) (Auto) 68 42-75 % Lymphocytes (%) (Auto) 24 12-44 % Monocytes (%) (Auto) 7 0-12 % Eosinophils (%) (Auto) 2 0-10 % Basophils (%) (Auto) 0 0-10 % Neutrophils # (Auto) 2.9 1.8-7.8 10^3/uL Lymphocytes # (Auto) 1.0 1.0-4.0 10^3/uL Monocytes # (Auto) 0.3 0.0-1.0 10^3/uL Eosinophils # (Auto) 0.1 0.0-0.3 10^3/uL Basophils # (Auto) 0.0 0.0-0.1 10^3/uL Immature Granulocyte # (Auto) 0.0 0.0-0.1 10^3/uL Percent Immature Platelet Fraction 5.4 0.0-7.6 % Sodium Level 141 135-145 MMOL/L Potassium Level 4.4 3.6-5.0 MMOL/L Chloride Level 101 98-107 MMOL/L Carbon Dioxide Level 31 21-32 MMOL/L Anion Gap 9 5-14 MMOL/L Blood Urea Nitrogen 18 7-18 MG/DL Creatinine 0.84 0.60-1.30 MG/DL Estimat Glomerular Filtration Rate 69 BUN/Creatinine Ratio 21 Glucose Level 130 H 70-105 MG/DL Calcium Level 9.2 8.5-10.1 MG/DL Corrected Calcium 9.4 8.5-10.1 MG/DL Total Bilirubin 0.3 0.1-1.0 MG/DL Aspartate Amino Transf (AST/SGOT) 21 5-34 U/L Alanine Aminotransferase (ALT/SGPT) 20 0-55 U/L Alkaline Phosphatase 72 40-136 U/L Troponin I < 0.028 <0.028 NG/ML B-Type Natriuretic Peptide 136.3 H <100.0 PG/ML Total Protein 7.1 6.4-8.2 GM/DL Albumin 3.7 3.2-4.5 GM/DL My Orders Orders - AWILDA RUIZ DO Cbc With Automated Diff (07/13/22 08:30) Comprehensive Metabolic Panel (07/13/22 08:30) Chest 1 View, Ap/Pa Only (07/13/22 08:30) Ed Iv/Invasive Line Start (07/13/22 08:30) O2 (07/13/22 08:30) Influenza A And B By Pcr (07/13/22 08:30) Covid 19 Inhouse Test (07/13/22 08:30) Albuterol/Ipra Inhalation Soln (Duoneb I (07/13/22 08:30) Methylprednisolone Sod Succ (Solu-Medrol (07/13/22 08:30) Svn Small Volume Nebulizer (07/13/22 08:30) Bnp [place] (07/13/22 08:30) Ekg Tracing (07/13/22 08:30) Troponin I Mya (07/13/22 08:30) Medications Given in ED Current Medications Medications Dose Ordered Sig/Trevon Route Start Time Stop Time Status Last Admin Dose Admin Albuterol/ Ipratropium 3 ml ONCE ONCE INH 07/13/22 08:30 07/13/22 08:33 DC 07/13/22 08:49 3 ML Methylprednisolone Sodium Succinate 125 mg ONCE ONCE IM 07/13/22 08:30 07/13/22 08:33 DC 07/13/22 08:49 125 MG Vital Signs/I&O 07/13/22 07/13/22 08:26 08:35 Temp 35.4 Pulse 84 Resp 18 B/P (MAP) 174/98 (123) Pulse Ox 98 98 O2 Delivery Nasal Cannula Nasal Cannula O2 Flow Rate 2.00 Capillary Refill : ECG EKG : Comment Sinus rhythm. 79 bpm. Left axis deviation. Normal intervals. Left bundle branch block. No ST or T wave abnormalities. No ectopy. Departure Communication (Admissions) Patient is hemodynamically stable. Initially her lungs are quite tight with expiratory and inspiratory wheezing and minimal air movement. This improves dramatically after breathing treatment and she is feeling much better. Oxygen saturation on 2 L which is her home requirement initially was about 88 to 90%. After single breathing treatment she is at 95%. No indication of cardiac etiology at this time. Chest x-ray shows no evidence for pneumonia. No stigmata of pulmonary embolus. No evidence for CHF exacerbation. She be discharged home with steroid medicine and recommendation to use her rescue inhalers. Strict return precautions and close follow-up. Impression Primary Impression: COPD exacerbation Disposition: HOME, SELF-CARE Condition: Stable Departure-Patient Inst. Referrals: ELZA FERGUSON DO (PCP/Family) Primary Care Physician Patient Instructions: COPD Exacerbation, Adult ED Add. Discharge Instructions: Please take the steroid medication as prescribed until it is gone. Take this in the morning so that she is able to sleep as it may interfere with his taking in the evenings. Use her rescue inhalers as needed. You may talk to your primary doctor about getting a nebulizer for home use in the future. You may increase her oxygen concentrator up to 4 or 5 L of oxygen if she is struggling to breathe. If you need to increase more than this you likely need to be in the hospital I recommend returning to the emergency department. Follow-up with your primary doctor on Sunday for reevaluation. Return to the emergency department for any severe concerns or if your symptoms change in any way concerning to you. All discharge instructions reviewed with patient and/or family. Voiced understanding. Scripts Prednisone (Prednisone) 50 Mg Tab 50 MG PO DAILY for 5 Days, #5 TAB Prov: AWILDA RUIZ DO 07/13/22 AWILDA RUIZ DO Jul 13, 2022 08:36
[2022-07-13 08:45] LABS: EOSINOPHILS # (AUTO) 0.1 10^3/uL (0.0-0.3)
[2022-07-13 08:47] LABS: BASOPHILS % (AUTO) 0 % (0-10); EOSINOPHILS % (AUTO) 2 % (0-10); HEMATOCRIT 32 % (35-52); HEMOGLOBIN 9.7 g/dL (11.5-16.0); LYMPHOCYTES % (AUTO) 24 % (12-44); MEAN CORPUSCULAR HEMOGLOBIN 30 pg (25-34); MEAN CORPUSCULAR HGB CONC 31 g/dL (32-36); MEAN CORPUSCULAR VOLUME 97 fL (80-99); MEAN PLATELET VOLUME 11.3 fL (9.0-12.2); MONOCYTES # (AUTO) 0.3 10^3/uL (0.0-1.0); MONOCYTES % (AUTO) 7 % (0-12); NEUTROPHILS # (AUTO) 2.9 10^3/uL (1.8-7.8); NEUTROPHILS % (AUTO) 68 % (42-75); PLATELET COUNT 124 10^3/uL (130-400); WHITE BLOOD COUNT 4.2 10^3/uL (4.3-11.0)
[2022-07-13 08:55] LABS: ALBUMIN 3.7 GM/DL (3.2-4.5)
[2022-07-13 08:56] LABS: CHLORIDE 101 MMOL/L (98-107); POTASSIUM 4.4 MMOL/L (3.6-5.0); SODIUM 141 MMOL/L (135-145)
[2022-07-13 08:57] LABS: CALCIUM 9.2 MG/DL (8.5-10.1)
[2022-07-13 08:58] LABS: GLUCOSE 130 MG/DL (70-105); TOTAL PROTEIN 7.1 GM/DL (6.4-8.2)
[2022-07-13 08:59] LABS: CARBON DIOXIDE 31 MMOL/L (21-32)
[2022-07-13 09:00] LABS: BILIRUBIN,TOTAL 0.3 MG/DL (0.1-1.0)
[2022-07-13 09:01] LABS: ALKALINE PHOSPHATASE 72 U/L (40-136)
[2022-07-13 09:02] LABS: CREATININE SERUM 0.84 MG/DL (0.60-1.30); GFR ESTIMATED 69
[2022-07-13 09:03] LABS: BUN/CREATININE RATIO 21
[2022-07-13 09:04] LABS: ALANINE AMINOTRANSFERASE 20 U/L (0-55)
--- NOTE | 2022-07-13 09:15 | Diagnostic Imaging Report ---
INDICATION: Shortness of breath. TIME OF EXAM: 8:54 AM Correlation is made with prior chest 04/30/2022. FINDINGS: Heart is enlarged and stable. Lungs appear to be clear. The right hemidiaphragm is mildly elevated. There is no infiltrate or failure. No effusion or pneumothorax is detected. IMPRESSION: Stable cardiomegaly. No acute feature is detected. Dictated by: Dictated on workstation # [id number]
[2022-07-13] MEDS ORDERED: PRD50T PO (09:34)
[2022-07-13 09:49] VITALS: BP 136/86
== END 2022-07-13 09:49 | disposition home or self-care (01) ==
LOC: EDUNIT# 08:19 → ER 08:20
DX: J44.1 Chronic obstructive pulmonary disease with (acute) exacerbation (principal); Z72.0 Tobacco use; Z86.16 Personal history of COVID-19; Z88.8 Allergy status to other drugs, medicaments and biological substances; Z20.822 Contact with and (suspected) exposure to COVID-19
CPT/HCPCS: 36415; 71045; 80053; 83880; 84484; 85025; 87636; 93005

== ENCOUNTER → 2022-08-23 | Outpatient (CLI) | payer MEDICAID, MEDICARE, OTHER ==
--- NOTE | 2022-08-23 13:33 | Diagnostic Imaging Report ---
PROCEDURE: US carotid duplex, bilateral. TECHNIQUE: Multiple real-time grayscale images were obtained over the carotid arteries in various projections, bilaterally. Additional spectral analysis and color Doppler duplex images were also obtained. INDICATION: Bilateral carotid artery atherosclerosis. Patient has a right carotid stent. Stent appears to be widely patent. Velocities in both the right and left carotid systems appear normal. No velocity elevation or stenosis is identified. Both vertebral arteries show antegrade flow. IMPRESSION: Right carotid stent which appears widely patent. No carotid stenosis is identified. Parameters based on the consensus panel Louie-Scale and Doppler ultrasound criteria published May 2003, Radiology, Volume 229. DOPPLER (peak systolic velocity M/S Right Left CCA .61 .63 ICA Proximal .47 .73 ICA Mid .53 .61 ICA Distal .72 .60 RATIO 1.2 1.2 ECA .89 .82 VERT N/A .70 Dictated by: Dictated on workstation # [id number]
== END ==
LOC: RAD 12:30
PROVIDERS: ATTEND Nurse Practitioner
DX: I65.23 Occlusion and stenosis of bilateral carotid arteries (principal)
CPT/HCPCS: 93880

== ENCOUNTER 2022-09-01 19:41 | Emergency (ER) | payer MEDICARE, MEDICAID ==
[~2022-09-01] VITALS: Ht 162.5 cm; Wt 78.5 kg
--- NOTE | 2022-09-01 20:20 | ED Cough/URI ---
General Chief Complaint: Cough/Cold/Flu Symptoms Stated Complaint: COUGHING, FEVER Nursing Triage Note: Pt presents with c/o cough x3-4 days. She wears O2 at 2L at home, and denies any chest pain or change in shortness of breath from her normal. Pt's mallory states she's been c/o a sore throat and running low grade temps at home as well. Mallory also reports a wheeze when she coughs and states she is concerned for pneumonia. Source: patient Exam Limitations: no limitations (TERRENCE ARRIAGA APRN) History of Present Illness Date Seen by Provider: Sep 01, 2022 Time Seen by Provider: 20:09 Initial Comments 81-year-old female presents to the ED with reports of a cold for the last 3 to 4 days. Reports runny nose, nasal congestion, and cough. Denies sore throat, fever, headache, chest pain, abdominal pain, nausea/vomiting, diarrhea. States she is short of breath, but states her shortness of breath has not changed. She has COPD and CHF and wears 2 L of oxygen, currently on her normal 2 L. Denies any wheezing with her breathing. Denies having to use her inhaler more frequently. Granddaughter reports mild left lower extremity edema due to her left hip, denies increase in this swelling. Granddaughter brought her in for concern of pneumonia due to her cough. (TERRENCE ARRIAGA APRN) Allergies and Home Medications Allergies Coded Allergies: cortisone (Verified Allergy, Unknown, 01/30/07) diphenhydramine (Verified Allergy, Unknown, 01/30/07) penicillin G (Verified Allergy, Unknown, 07/12/21) The patient is unaware that she has a penicillin allergy. She does not remember ever taking it and if she did what the reaction was. It has not been recently. Patient Home Medication List Home Medication List Reviewed: Yes (TERRENCE ARRIAGA APRN) Acetaminophen (Tylenol Extra Strength) 500 Mg Tablet, 500-1,000 MG PO Q8H PRN for PAIN-MILD (1-4), (Reported) Entered as Reported by: ELZA AGUILAR on 10/11/21 5859 Amlodipine Besylate (Amlodipine Besylate) 5 Mg Tablet, 5 MG PO DAILY, (Reported) Entered as Reported by: LILA DOVER on 03/20/22 09 Apixaban (Eliquis) 5 Mg Tablet, 5 MG PO BID, (Reported) Entered as Reported by: LILA DOVER on 03/20/22 09 Atorvastatin Calcium (Atorvastatin Calcium) 20 Mg Tablet, 20 MG PO DAILY, (Reported) Entered as Reported by: ELZA AGUILAR on 10/11/21 154 Cetirizine HCl (Cetirizine HCl) 10 Mg Tablet, 10 MG PO DAILY, (Reported) Entered as Reported by: ELZA AGUILAR on 10/11/211541 Clopidogrel Bisulfate (Clopidogrel) 75 Mg Tablet, 75 MG PO DAILY, (Reported) Entered as Reported by: LILA DOVER on 03/20/22 09 Diclofenac Sodium (Diclofenac Sodium) 1 % Gel..gram., 1 APPLIC TOP QID PRN for PAIN-BREAKTHROUGH, (Reported) Entered as Reported by: ELZA AGUILAR on 11/09/21 111 Docusate Sodium (Stool Softener) 100 Mg Capsule, 100 MG PO DAILY PRN for CONSTIPATION-1ST LINE, (Reported) Entered as Reported by: LILA DOVER on 03/20/22 09 Lisinopril (Lisinopril) 40 Mg Tablet, 40 MG PO DAILY, (Reported) Entered as Reported by: ELZA AGUILAR on 10/11/211541 Melatonin (Melatonin) 10 Mg Tablet, 10 MG PO HS, (Reported) Entered as Reported by: ELZA AGUILAR on 11/09/21 111 Metoclopramide HCl (Metoclopramide HCl) 10 Mg Tablet, 10 MG PO BID, (Reported) Entered as Reported by: ELZA AGUILAR on 10/11/211541 Metoprolol Succinate (Metoprolol Succinate) 50 Mg Tab.er.24h, 50 MG PO DAILY, (Reported) Entered as Reported by: ELZA AGUILAR on 10/11/211541 Montelukast Sodium (Montelukast Sodium) 10 Mg Tablet, 10 MG PO HS, (Reported) Entered as Reported by: ELZA AGUILAR on 10/11/211541 Sertraline HCl (Sertraline HCl) 25 Mg Tablet, 25 MG PO DAILY, (Reported) Entered as Reported by: LILA DOVER on 03/20/22 0939 Trazodone HCl (Trazodone HCl) 100 Mg Tablet, 50 MG PO HS, (Reported) Entered as Reported by: ELZA AGUILAR on 10/11/21 1542 Discontinued Medications Prednisone (Prednisone) 50 Mg Tab, 50 MG PO DAILY Discontinued Reason: No Longer Taking Prescribed by: AWILDA RUIZ MD on 04/30/22 0830 Prednisone (Prednisone) 50 Mg Tab, 50 MG PO DAILY Discontinued Reason: No Longer Taking Prescribed by: AWILDA RUIZ MD on 07/13/22 0934 Review of Systems Review of Systems Constitutional: see HPI (TERRENCE ARRIAGA APRN) Past Neijvfz-Egcjjt-Qoctsl Hx Immunizations Up To Date Tetanus Booster (TDap): Less than 5yrs PED Vaccines UTD: Yes First/Initial COVID19 Vaccinat: RECEIVED, UNK WHEN Second COVID19 Vaccination Taurus: RECEIVED, UNK WHEN Third COVID19 Vaccination Date: RECEIVED, UNK WHEN (TERRENCE ARRIAGA APRN) Seasonal Allergies Seasonal Allergies: Yes (TERRENCE ARRIAGA APRN) Past Medical History Surgery/Hospitalization HX: htn, gerd, high cholesterol, asthma, CHF, COPD, STENT IN RT NECK, LT HIP Surgeries: Yes (RIGHT BREAST BIOPSY,ROTATOR CUFF) Section, Gallbladder, Hysterectomy, Oophorectomy, Orthopedic, Tonsillectomy Respiratory: Yes (COVID-19 12/2020-NO HOSPITALIZATION OR TREATMENT) Pneumonia, COPD Cardiac: Yes High Cholesterol, Hypertension Neurological: No Reproductive Disorders: No Sexually Transmitted Disease: No Genitourinary: Yes UTI-Chronic Gastrointestinal: Yes Gastroesophageal Reflux Musculoskeletal: Yes (FALLS) Arthritis Endocrine: No HEENT: No Hearing Impairment: Hard of Hearing Cancer: No Psychosocial: No Blood Disorders: Yes (ANEMIA) Adverse Reaction/Blood Tranf: No (TERRENCE ARRIAGA APRN) Family Medical History Cancer, COPD, Diabetes, Hypertension (TERRENCE ARRIAGA APRN) Physical Exam Vital Signs - First Documented 09/01/22 19:55 Temp 36.0 Pulse 77 Resp 18 B/P (MAP) 130/76 (94) Pulse Ox 98 O2 Delivery Nasal Cannula O2 Flow Rate 2.00 (JOHNANDREW K DO) Capillary Refill : Less Than 3 Seconds (TERRENCE ARRIAGA APRN) Height: 5'4.00" Weight: 188lbs. 0.0oz. 85.220863ts; 29.00 BMI Method:Stated General Appearance: WD/WN, no apparent distress HEENT: normal ENT inspection, other (Full of cerumen, unable to see TMs bilaterally) Neck: supple, normal inspection Respiratory: lungs clear, normal breath sounds, no respiratory distress, no accessory muscle use Cardiovascular: regular rate, rhythm, no edema, no gallop, no JVD, no murmur Extremities: normal range of motion, normal inspection, swelling (Mild swelling left lower extremity, granddaughter states this is normal and there is been no increase.) Neurologic/Psychiatric: alert, normal mood/affect, oriented x 3 Skin: normal color, warm/dry (TERRENCE ARRIAGA APRN) Procedures/Interventions Suture Size: 5-0 (TERRENCE ARRIAGA APRN) Progress/Results/Core Measures Suspected Sepsis SIRS Temperature: Pulse: 77 Respiratory Rate: 18 Blood Pressure 130 /76 Mean: 94 (TERRENCE ARRIAGA APRN) Results/Orders Lab Results Laboratory Tests Test 09/01/22 20:18 Range/Units Influenza Type A (RT-PCR) Not Detected Not Detecte Influenza Type B (RT-PCR) Not Detected Not Detecte SARS-CoV-2 RNA (RT-PCR) Not Detected Not Detecte (ANDREW LOPEZ DO) Vital Signs/I&O 09/01/22 09/01/22 09/01/22 19:55 20:21 21:07 Temp 36.0 Pulse 77 71 Resp 18 18 B/P (MAP) 130/76 (94) 149/71 Pulse Ox 98 99 O2 Delivery Nasal Cannula Nasal Cannula Nasal Cannula O2 Flow Rate 2.00 2.00 2.00 (ANDREW LOPEZ DO) Vital Signs/I&O Capillary Refill : Less Than 3 Seconds (TERRENCE ARRIAGA APRN) Blood Pressure Mean: 94 Progress Note #1: Time: 20:19 Progress Note Patient seen and evaluated, resting comfortably in bed, no acute distress. Based on exam and symptoms, differential diagnosis includes but is not limited to COVID/flu. COVID and flu swab ordered. Progress Note #2: Time: 20:57 Progress Note Chest x-ray and COVID/flu swabs reviewed. COVID and flu negative. Chest x-ray shows cardiomegaly with minimal left basilar subsegmental atelectasis and/or pneumonitis. Not concerned for pneumonia at this time. Patient given results, discharge instructions, and return precautions. (TERRENCE ARRIAGA APRN) Diagnostic Imaging Diagonstic Imaging: Xray Plain Films/CT/US/NM/MRI: chest Comments [facility]. [place], [place] NAME: LOKI LOPEZ [facility] REC#: [id number] PT STATUS: REG ER : 1940 PHYSICIAN: TERRENCE ARRIAGA APRN ADMIT DATE: 09/01/22/ER Signed Date of Exam:09/01/22 CHEST 1 VIEW, AP/PA ONLY INDICATION: Cough. COMPARISON: Prior examination from 07/13/2022. FINDINGS: There is cardiomegaly. There is some minimal left basilar atelectasis and/or pneumonitis. There is no pneumothorax. The mediastinum is unremarkable. IMPRESSION: Cardiomegaly with minimal left basilar subsegmental atelectasis and/or pneumonitis. Dictated by: Dictated on workstation # [id number] Dict: 09/01/222031 Trans: 09/01/222044 PJE [id number] Interpreted by: ESTEBAN ALVAREZ MD Electronically signed by: ESTEBAN ALVAREZ MD 09/01/222044 (TERRENCE ARRIAGA APRN) Departure Impression Primary Impression: Upper respiratory infection Disposition: 01 HOME, SELF-CARE Condition: Stable Departure-Patient Inst. Decision time for Depature: 20:58 (TERRENCE ARRIAGA APRN) Referrals: ELZA FERGUSON DO (PCP/Family) Primary Care Physician Patient Instructions: Cough, Adult (DC) Add. Discharge Instructions: Return for worsening shortness of breath, high fevers, symptoms not improving, worsening swelling in your lower legs, or any other new, concerning, or worsening symptoms. Follow-up with your primary care provider. All discharge instructions reviewed with patient and/or family. Voiced understanding. ATTENDING PHYSICIAN NOTE: I WAS PHYSICALLY PRESENT ER PHYSICIAN, BUT I WAS NOT INVOLVED IN ANY DECISION MAKING OR ANY CARE OF THIS PATIENT AND I AM NOT COLLABORATING PHYSICIAN. (ANDREW LOPEZ DO) TERRENCE ARRIAGA APRN Sep 01, 2022 20:20 ANDREW LOPEZ DO Sep 04, 2022 05:17
--- NOTE | 2022-09-01 20:36 | Diagnostic Imaging Report ---
INDICATION: Cough. COMPARISON: Prior examination from 07/13/2022. FINDINGS: There is cardiomegaly. There is some minimal left basilar atelectasis and/or pneumonitis. There is no pneumothorax. The mediastinum is unremarkable. IMPRESSION: Cardiomegaly with minimal left basilar subsegmental atelectasis and/or pneumonitis. Dictated by: Dictated on workstation # [id number]
[2022-09-01 21:07] VITALS: BP 149/71
== END 2022-09-01 21:07 | disposition home or self-care (01) ==
LOC: EDUNIT# 19:41 → ER 19:42
DX: J06.9 Acute upper respiratory infection, unspecified (principal); J44.9 Chronic obstructive pulmonary disease, unspecified; Z99.81 Dependence on supplemental oxygen; Z20.822 Contact with and (suspected) exposure to COVID-19
CPT/HCPCS: 71045; 87636

== ENCOUNTER 2022-09-02 22:18 | Inpatient (IN) | payer MEDICARE, MEDICAID ==
[~2022-09-02] VITALS: Ht 162.6 cm; Wt 85.3 kg
--- NOTE | 2022-09-02 22:47 | ED Respiratory ---
General Chief Complaint: Respiratory Problems Stated Complaint: SOA/COUGH Nursing Triage Note: PT PRESENTS TO ED WITH C/O SOB AFTER LAYING DOWN. PT WEARS 2L PER NC AT ALL TIMES BUT HAD TO INCREASE O2 TO 5L BUT STILL FELT SOB. PT SEEN LAST NOC FOR SAME, COVID, FLU AND CHEST XRAY ALL NEGATIVE. PT FOUND TO BE 100% ON 2L AT TRIAGE. Source: patient (LIMITED HISTORIAN), old records, other (GRAND DAUGHTER GIVES M OST INFORMATION) History of Present Illness Date Seen by Provider: Sep 02, 2022 Time Seen by Provider: 22:30 Initial Comments PT ARRIVES VIA POV FROM HOME WITH GRAND DAUGHTER, WHO SHE LIVES WITH, AND GRAND DAUGHTER IS HER SECURITY COMPLIANCE ENGINEER PT STATES SHE HAS BEEN SICK ALL WEEK, SINCE SUNDAY, WITH: -PRODUCTIVE COUGH WITH BROWN SPUTUM -SHORTNESS OF BREATH -HAD CHEST PAIN EARLIER TODAY, BUT NOT NOW. NO KNOWN FEVER NO SWELLING OF LEGS/ FEET OR PAIN IN CALVES NO GI SYMPTOMS NO SWEATS NO HEADACHE NO BODY ACHES SHE HAS BEEN TAKING CORICIDIN FOR HER COUGH AND CONGESTION PT HAS LONGSTANDING COPD, AND IS O2 DEPENDENT AT 2L/NC CONTINUOUSLY SHE STATES SHE HAS INHALER AND NEBULIZER AT HOME, BUT HAS NOT USED THEM TODAY OR THIS WEEK. PER MED RECONCILIATION, PT WAS PRESCRIBED FLOVENT, SPIRIVA AND ALBUTEROL INHALER 01/04/22. SHE ALSO HAS HISTORY OF HTN, CHF, AND CAROTID DISEASE AND HAS STENT IN LEFT CAROTID SHE IS ON ELIQUIS AND PLAVIX, WELL AMLODIPINE, METOPROLOL AND LISINOPRIL NO REPORTED HISTORY OF IRREGULAR HEART BEAT. SHE STATES SHE HAS TAKEN HER MORNING MEDICATIONS SHE WAS SEEN HERE YESTERDAY FOR SAME COMPLAINTS COVID/FLU TESTS WERE NEGATIVE, AND CXR DID NOT HAVE ANY ACUTE FINDINGS NO TREATMENT OR RX GIVEN. SHE HAS NOT ATTEMPTED TO CONTACT HER DR OR GO TO [facility] AT ANY TIME THIS WEEK PCP: DR. FERGUSON AT [facility] Allergies and Home Medications Allergies Coded Allergies: cortisone (Verified Allergy, Unknown, 01/30/07) diphenhydramine (Verified Allergy, Unknown, 01/30/07) penicillin G (Verified Allergy, Unknown, 07/12/21) The patient is unaware that she has a penicillin allergy. She does not remember ever taking it and if she did what the reaction was. It has not been recently. Patient Home Medication List Acetaminophen (Tylenol Extra Strength) 500 Mg Tablet, 500-1,000 MG PO Q8H PRN for PAIN-MILD (1-4), (Reported) Entered as Reported by: ELZA AGUILAR on 10/11/211541 Amlodipine Besylate (Amlodipine Besylate) 5 Mg Tablet, 5 MG PO DAILY, (Reported) Entered as Reported by: LILA DOVER on 03/20/22 09 Apixaban (Eliquis) 5 Mg Tablet, 5 MG PO BID, (Reported) Entered as Reported by: LILA DOVER on 03/20/22 09 Atorvastatin Calcium (Atorvastatin Calcium) 20 Mg Tablet, 20 MG PO DAILY, (Reported) Entered as Reported by: ELZA AGUILAR on 10/11/211541 Cetirizine HCl (Cetirizine HCl) 10 Mg Tablet, 10 MG PO DAILY, (Reported) Entered as Reported by: ELZA AGUILAR on 10/11/211541 Clopidogrel Bisulfate (Clopidogrel) 75 Mg Tablet, 75 MG PO DAILY, (Reported) Entered as Reported by: LILA DOVER on 03/20/22 0939 Diclofenac Sodium (Diclofenac Sodium) 1 % Gel..gram., 1 APPLIC TOP QID PRN for PAIN-BREAKTHROUGH, (Reported) Entered as Reported by: ELZA AGUILAR on 11/09/21 111 Docusate Sodium (Stool Softener) 100 Mg Capsule, 100 MG PO DAILY PRN for CONSTIPATION-1ST LINE, (Reported) Entered as Reported by: LILA DOVER on 03/20/22 09 Lisinopril (Lisinopril) 40 Mg Tablet, 40 MG PO DAILY, (Reported) Entered as Reported by: ELZA AGUILAR on 10/11/211541 Melatonin (Melatonin) 10 Mg Tablet, 10 MG PO HS, (Reported) Entered as Reported by: ELZA AGUILAR on 11/09/21 111 Metoclopramide HCl (Metoclopramide HCl) 10 Mg Tablet, 10 MG PO BID, (Reported) Entered as Reported by: ELZA AGUILAR on 10/11/21 154 Metoprolol Succinate (Metoprolol Succinate) 50 Mg Tab.er.24h, 50 MG PO DAILY, (Reported) Entered as Reported by: ELZA AGUILAR on 10/11/211541 Montelukast Sodium (Montelukast Sodium) 10 Mg Tablet, 10 MG PO HS, (Reported) Entered as Reported by: ELZA AGUILAR on 10/11/21 154 Prednisone (Prednisone) 50 Mg Tab, 50 MG PO DAILY Prescribed by: AWILDA RUIZ MD on 04/30/22 0830 Prednisone (Prednisone) 50 Mg Tab, 50 MG PO DAILY Prescribed by: AWILDA RUIZ MD on 07/13/22 0934 Sertraline HCl (Sertraline HCl) 25 Mg Tablet, 25 MG PO DAILY, (Reported) Entered as Reported by: LILA DOVER on 03/20/22 0939 Trazodone HCl (Trazodone HCl) 100 Mg Tablet, 100 MG PO HS, (Reported) Entered as Reported by: ELZA AGUILAR on 10/11/211541 Review of Systems Review of Systems Constitutional: no symptoms reported; No chills, No diaphoresis, No fever EENTM: nose congestion Respiratory: see HPI, cough, dyspnea on exertion, phlegm, short of breath, wheezing Cardiovascular: see HPI, chest pain; No edema, No palpitations, No syncope Gastrointestinal: no symptoms reported Genitourinary: no symptoms reported Musculoskeletal: no symptoms reported Skin: no symptoms reported Psychiatric/Neurological: No Symptoms Reported Hematologic/Lymphatic: No Symptoms Reported Immunological/Allergic: no symptoms reported Past Qxydtsp-Etbefa-Hifgjw Hx Patient Social History Tobacco Use?: Yes Tobacco type used: Cigarettes Smoking Status: Former Smoker Use of E-Cig and/or Vaping dev: No Substance use?: No Alcohol Use?: No Pt feels they are or have been: No Immunizations Up To Date Tetanus Booster (TDap): Less than 5yrs PED Vaccines UTD: Yes First/Initial COVID19 Vaccinat: RECEIVED, UNK WHEN Second COVID19 Vaccination Taurus: RECEIVED, UNK WHEN Third COVID19 Vaccination Date: RECEIVED, UNK WHEN Seasonal Allergies Seasonal Allergies: Yes Past Medical History Surgery/Hospitalization HX: htn, gerd, high cholesterol, asthma, CHF, COPD, STENT IN RT NECK, LT HIP Surgeries: Yes (RIGHT BREAST BIOPSY; ROTATOR CUFF; LEFT HIP 06/2021) Section, Gallbladder, Hysterectomy, Oophorectomy, Orthopedic, Tonsillectomy Respiratory: Yes (COVID-19 12/2020-NO HOSPITALIZATION OR TREATMENT) Pneumonia, COPD Cardiac: Yes (CAROTID DISEASE) High Cholesterol, Hypertension Neurological: No Reproductive Disorders: No Sexually Transmitted Disease: No Genitourinary: Yes UTI-Chronic Gastrointestinal: Yes Gastroesophageal Reflux Musculoskeletal: Yes (FALLS; LEFT HIP FX 06/2021) Arthritis, Fractures Endocrine: No HEENT: Yes Hearing Impairment: Hard of Hearing Cancer: No Psychosocial: No Blood Disorders: Yes (ANEMIA) Adverse Reaction/Blood Tranf: No Family Medical History Cancer, COPD, Diabetes, Hypertension SOCIAL HISTORY: -SMOKED -DENIES ETOH -DENIES DRUG USE PAST SURGICAL HISTORY: -LEFT HIP FRACTURE WITH HIP REPLACEMENT 06/2021 - -CHOLECYSTECTOMY -TONSILLECTOMY -BREAST BIOPSY -HYSTERECTOMY / BILATERAL SALPINGO-OOPHORECTOMY, WITH ANTERIOR AND POSTERIOR REPAIR [address] HERNANDEZ -EGD / COLONOSCOPY WITH PYLORIC POLYP REMOVAL AND COLON POLYP REMOVAL X 2 11/[address] MURRAY. Physical Exam Vital Signs - First Documented Capillary Refill : Less Than 3 Seconds Height: 5'4.00" Weight: 188lbs. 0.0oz. 85.225575lb; 32.00 BMI Method:Stated Focused Exam Lactate Level 09/02/22 22:57: Lactic Acid Level 1.23 Lactic Acid Level Laboratory Tests Test 09/02/22 22:57 Lactic Acid Level 1.23 MMOL/L (0.50-2.00) Procedures/Interventions Suture Size: 5-0 Progress/Results/Core Measures Suspected Sepsis SIRS Temperature: Pulse: 94 Respiratory Rate: 20 Laboratory Tests 09/02/22 22:57: White Blood Count 6.2 Blood Pressure 196 /86 Mean: 122 09/02/22 22:57: Lactic Acid Level 1.23 Laboratory Tests 09/02/22 22:57: Creatinine 0.78, INR Comment 1.5H, Platelet Count 122L, Total Bilirubin 0.4 Results/Orders Lab Results Laboratory Tests Test 09/02/22 22:40 09/02/22 22:57 09/02/22 23:56 Range/Units Influenza Type A (RT-PCR) Not Detected Not Detecte Influenza Type B (RT-PCR) Not Detected Not Detecte SARS-CoV-2 RNA (RT-PCR) Not Detected Not Detecte White Blood Count 6.2 4.3-11.0 10^3/uL Red Blood Count 3.18 L 3.80-5.11 10^6/uL Hemoglobin 9.5 L 11.5-16.0 g/dL Hematocrit 32 L 35-52 % Mean Corpuscular Volume 99 80-99 fL Mean Corpuscular Hemoglobin 30 25-34 pg Mean Corpuscular Hemoglobin Concent 30 L 32-36 g/dL Red Cell Distribution Width 14.7 H 10.0-14.5 % Platelet Count 122 L 130-400 10^3/uL Mean Platelet Volume 11.0 9.0-12.2 fL Immature Granulocyte % (Auto) 1 % Neutrophils (%) (Auto) 74 42-75 % Lymphocytes (%) (Auto) 15 12-44 % Monocytes (%) (Auto) 10 0-12 % Eosinophils (%) (Auto) 1 0-10 % Basophils (%) (Auto) 0 0-10 % Neutrophils # (Auto) 4.6 1.8-7.8 10^3/uL Lymphocytes # (Auto) 0.9 L 1.0-4.0 10^3/uL Monocytes # (Auto) 0.6 0.0-1.0 10^3/uL Eosinophils # (Auto) 0.1 0.0-0.3 10^3/uL Basophils # (Auto) 0.0 0.0-0.1 10^3/uL Immature Granulocyte # (Auto) 0.0 0.0-0.1 10^3/uL Percent Immature Platelet Fraction 5.1 0.0-7.6 % Erythrocyte Sedimentation Rate 62 H 0-30 MM/HR Prothrombin Time 18.9 H 12.2-14.7 SEC INR Comment 1.5 H 0.8-1.4 Activated Partial Thromboplast Time 39 H 24-35 SEC D-Dimer 0.83 H 0.00-0.49 UG/ML Sodium Level 142 135-145 MMOL/L Potassium Level 3.9 3.6-5.0 MMOL/L Chloride Level 99 98-107 MMOL/L Carbon Dioxide Level 30 21-32 MMOL/L Anion Gap 13 5-14 MMOL/L Blood Urea Nitrogen 19 H 7-18 MG/DL Creatinine 0.78 0.60-1.30 MG/DL Estimat Glomerular Filtration Rate 75 BUN/Creatinine Ratio 24 Glucose Level 143 H 70-105 MG/DL Lactic Acid Level 1.23 0.50-2.00 MMOL/L Calcium Level 9.1 8.5-10.1 MG/DL Corrected Calcium 9.3 8.5-10.1 MG/DL Magnesium Level 1.8 1.6-2.4 MG/DL Total Bilirubin 0.4 0.1-1.0 MG/DL Aspartate Amino Transf (AST/SGOT) 17 5-34 U/L Alanine Aminotransferase (ALT/SGPT) 16 0-55 U/L Alkaline Phosphatase 89 40-136 U/L Total Creatine Kinase 17 L 29-168 U/L Creatine Kinase MB 0.5 <6.6 NG/ML Myoglobin 25.8 10.0-92.0 NG/ML Troponin I < 0.028 <0.028 NG/ML C-Reactive Protein High Sensitivity 10.46 H 0.00-0.50 MG/DL B-Type Natriuretic Peptide 134.9 H <100.0 PG/ML Total Protein 7.2 6.4-8.2 GM/DL Albumin 3.8 3.2-4.5 GM/DL Blood Gas Puncture Site LR Blood Gas Patient Temperature 36.8 Arterial Blood pH 7.32 *L 7.37-7.43 Arterial Blood Partial Pressure CO2 72 *H 35-45 MMHG Arterial Blood Partial Pressure O2 71 L 79-93 MMHG Arterial Blood HCO3 37 H 23-27 MMOL/L Arterial Blood Total CO2 38.7 H 21.0-31.0 MMOL/L Arterial Blood Oxygen Saturation 95 94-100 % Arterial Blood Base Excess 10.3 H -2.5-2.5 MMOL/L Iam Test YES-POS Blood Gas Ventilator Setting NO Blood Gas Inspired Oxygen 2 My Orders Orders - ANDREW LOPEZ DO Ed Iv/Invasive Line Start (09/02/22:29) Ekg Tracing (09/02/22:) O2 (09/02/22:) Monitor-Rhythm Ecg Trace Only (09/02/22:) Chest 1 View, Ap/Pa Only (09/02/22:) Bnp [place] (09/02/22:) Cbc With Automated Diff (09/02/22:) Comprehensive Metabolic Panel (09/02/22:) Creatine Kinase (09/02/22:29) Creatine Kinase Mb (09/02/22:) Hs C Reactive Protein (09/02/22:) Fibrin Degradation Products (09/02/22:) Lactic Acid Analyzer (09/02/22:) Magnesium (09/02/22:) Protime With Inr (09/02/22:) Partial Thromboplastin Time (09/02/22:) Erythrocyte Sedimentation Rate (09/02/22:) Myoglobin Serum (09/02/22:) Troponin I Mya (09/02/22:) Covid 19 Inhouse Test (09/02/22:) Influenza A And B By Pcr (09/02/22:) Isolation Central Supply Req (09/02/22:) Blood Culture (09/02/22:07) Sputum Culture (09/02/22:) Urinalysis (09/02/22:) Urine Culture (09/02/22:) Ed Iv/Invasive Line Start (09/02/22:07) Vital Signs Adult Sepsis Patie Q15M (09/02/22:07) Remove Rings In Anticipation O (09/02/22:07) Ceftriaxone 1 Gm Pre-Mix (Rocephin 1 Gm (09/02/22 23:15) Azithromycin Injection (Zithromax Inject (09/02/22 23:15) Albuterol/Ipra Inhalation Soln (Duoneb I (09/02/22 23:15) Dexamethasone Injection (Decadron Injec (09/02/22 23:15) Rt Request For Service (09/02/22 23:13) Methylprednisolone Sod Succ (Solu-Medrol (09/02/22 23:13) Svn Small Volume Nebulizer (09/02/22 23:13) Arterial Blood Gas (09/02/22 23:13) Arterial Blood Draw - Obtain (09/02/22 23:50) Catheter(Urinary) Insert & Ass 03,15 (09/03/22 00:07) Lidocaine 2% (Urojet) (Xylocaine Urojet) (09/03/22 00:15) Medications Given in ED Current Medications Medications Dose Ordered Sig/Trevon Route Start Time Stop Time Status Last Admin Dose Admin Albuterol/ Ipratropium 3 ml ONCE ONCE INH 09/02/22 23:15 09/02/22 23:16 DC 09/02/22 23:53 3 ML Azithromycin 500 mg/Sodium Chloride 255 ml @ 250 mls/hr ONCE ONCE IV 09/02/22 23:15 09/03/22 00:16 DC 09/02/22 23:26 250 MLS/HR Ceftriaxone Sodium/Dextrose 50 ml @ 100 mls/hr ONCE ONCE IV 09/02/22 23:15 09/02/22 23:44 DC 09/02/22 23:26 100 MLS/HR Dexamethasone Sodium Phosphate 20 mg ONCE ONCE IH 09/02/22 23:15 09/02/22 23:16 DC 09/02/22 23:53 20 MG Vital Signs/I&O 09/02/22 09/02/22 09/02/22 09/02/22 22:23 22:23 22:33 23:48 Temp 36.8 Pulse 94 Resp 20 B/P (MAP) 196/86 (122) Pulse Ox 100 100 95 O2 Delivery Nasal Cannula Nasal Cannula Nasal Cannula O2 Flow Rate 2.00 2.00 2.00 2.00 Capillary Refill : Less Than 3 Seconds Blood Pressure Mean: 122 Departure Departure-Patient Inst. Referrals: ELZA FERGUSON DO (PCP/Family) Primary Care Physician ANDREW LOPEZ DO Sep 02, 2022 22:47
[2022-09-02 23:09] LABS: MEAN CORPUSCULAR HEMOGLOBIN 30 pg (25-34); MEAN CORPUSCULAR HGB CONC 30 g/dL (32-36); MEAN CORPUSCULAR VOLUME 99 fL (80-99); NEUTROPHILS # (AUTO) 4.6 10^3/uL (1.8-7.8)
[2022-09-02 23:11] LABS: BASOPHILS % (AUTO) 0 % (0-10); EOSINOPHILS # (AUTO) 0.1 10^3/uL (0.0-0.3); EOSINOPHILS % (AUTO) 1 % (0-10); HEMATOCRIT 32 % (35-52); HEMOGLOBIN 9.5 g/dL (11.5-16.0); LYMPHOCYTES # (AUTO) 0.9 10^3/uL (1.0-4.0); LYMPHOCYTES % (AUTO) 15 % (12-44); MONOCYTES # (AUTO) 0.6 10^3/uL (0.0-1.0); MONOCYTES % (AUTO) 10 % (0-12); NEUTROPHILS % (AUTO) 74 % (42-75); PLATELET COUNT 122 10^3/uL (130-400); WHITE BLOOD COUNT 6.2 10^3/uL (4.3-11.0)
[2022-09-02] MEDS ORDERED: methylPREDNISolone 125 MG (Solu-MEDROL) VIAL IV STA (23:13)
[2022-09-02] MEDS ORDERED: AZITHROMYCIN INJECTION 500 MG in NS (IVPB) 250 ML IV ONE (23:15)
[2022-09-02] MEDS ORDERED: cefTRIAXone 1 GM PRE-MIX 50 ML IV ONE (23:15)
[2022-09-02] MEDS ORDERED: RT-ALBUTEROL/IPRATROPIUM 3 ML (DUONEB) VIAL INH ONE (23:15)
[2022-09-02 23:21] LABS: ALBUMIN 3.8 GM/DL (3.2-4.5); CHLORIDE 99 MMOL/L (98-107); POTASSIUM 3.9 MMOL/L (3.6-5.0); SODIUM 142 MMOL/L (135-145)
[2022-09-02 23:22] LABS: CALCIUM 9.1 MG/DL (8.5-10.1)
[2022-09-02 23:24] LABS: GLUCOSE 143 MG/DL (70-105); TOTAL PROTEIN 7.2 GM/DL (6.4-8.2)
[2022-09-02 23:25] LABS: BILIRUBIN,TOTAL 0.4 MG/DL (0.1-1.0); CARBON DIOXIDE 30 MMOL/L (21-32)
[2022-09-02 23:27] LABS: ALKALINE PHOSPHATASE 89 U/L (40-136); CREATININE SERUM 0.78 MG/DL (0.60-1.30); GFR ESTIMATED 75
[2022-09-02 23:28] LABS: BUN/CREATININE RATIO 24; ERYTHROCYTE SEDIMENTATION RATE 62 MM/HR (0-30)
[2022-09-02 23:30] LABS: ALANINE AMINOTRANSFERASE 16 U/L (0-55); FIBRIN DEGRADATION PRODUCTS 0.83 UG/ML (0.00-0.49); INR 1.5 (0.8-1.4); MAGNESIUM 1.8 MG/DL (1.6-2.4); PROTHROMBIN TIME PATIENT 18.9 SEC (12.2-14.7)
[2022-09-02 23:31] LABS: CREATINE KINASE 17 U/L (29-168)
[2022-09-02 23:38] LABS: CREATINE KINASE MB 0.5 NG/ML (<6.6)
[2022-09-03] VITALS (7 sets, daily range): BP systolic 105–196; BP diastolic 58–97
[2022-09-03] LABS: ABG BASE EXCESS 10.3 MMOL/L (-2.5-2.5); ABG OXYGEN SATURATION 95 % (94-100); ABG PO2 71 MMHG (79-93); ABG TCO2 38.7 MMOL/L (21.0-31.0)
[2022-09-03 00:04] LABS: ALLENS TEST YES-POS; INSPIRED O2 2; PATIENT TEMP 36.8; VENTILATOR NO
[2022-09-03 00:05] LABS: ABG PCO2 72 MMHG (35-45); ABG PH 7.32 (7.37-7.43)
[2022-09-03] MEDS ORDERED: LIDOCAINE UROJET 2% GEL 10 ML PKG TOP ONE (00:15)
[2022-09-03 01:18] LABS: BILIRUBIN,URINE NEGATIVE (NEGATIVE); CLARITY,URINE CLEAR; COLOR,URINE YELLOW; GLUCOSE, URINE (UA) NEGATIVE (NEGATIVE); KETONES,URINE NEGATIVE (NEGATIVE); LEUKOCYTE ESTERASE ,URINE NEGATIVE (NEGATIVE); NITRITE,URINE POSITIVE (NEGATIVE); PH,URINE 6.5 (5-9); PROTEIN,URINE 2+ (NEGATIVE)
[2022-09-03 01:36] LABS: BACTERIA,URINE MODERATE /HPF; RBC,URINE 0-2 /HPF; SQUAMOUS EPITHELIAL CELL,UR RARE /HPF; WBC,URINE 50-100 /HPF
[2022-09-03] MEDS ORDERED: NS IV 500 ML 500 ML IV PRN (02:00)
[2022-09-03] MEDS ORDERED: EPINEPHrine 1 MG INJECTION 4 MG in NS (IVPB) 248 ML IV SCH (02:15)
[2022-09-03] MEDS ORDERED: VASOPRESSIN INJECTION 20 UNIT in NS (IVPB) 100 ML IV SCH (02:15)
[2022-09-03] MEDS ORDERED: LACTATED RINGERS 1,000 ML IV SCH (02:15)
[2022-09-03] MEDS ORDERED: ONDANSETRON 4 MG/2 ML (SDV) Z0FRAN IV PRN ×2 (02:15→11:30)
[2022-09-03] MEDS ORDERED: ACETAMINOPHEN 500 MG TAB (TYLENOL) PO PRN ×2 (02:15→11:30)
[2022-09-03] MEDS ORDERED: NOREPINEPHRINE 8 MG/250 ML 250 ML IV SCH (02:15)
[2022-09-03] MEDS ORDERED: fentaNYL INJ 100 MCG/2 ML AMP IV PRN (02:15)
--- NOTE | 2022-09-03 02:46 | Tele-ICU Consult ---
History of Present Illness History of Present Illness Date Seen by Provider: Sep 03, 2022 Time Seen by Provider: 02:41 Date of Admission eICU admit note 81 yo F admitted in resp distress, has COPD, on home oxygen, been SOB for last week. Has productive cough. On nebulizers at home, has not used this week. CXR shows elevated diaphramgs, blunting of left costal-phrenic angle with possible pleural effusion Covid and flu serology are negative, pt is ex smoker ABG on 2 lpm 7. Now on BiPAP 15/5 FIO2 25%, started on IV azithromycin, rocephin PMH HTN Carotid artery disease with stent in left, on Eliquis and Plaivx, No Hx of a fib DM Allergies and Home Medications Allergies Coded Allergies: cortisone (Verified Allergy, Unknown, 01/30/07) diphenhydramine (Verified Allergy, Unknown, 01/30/07) penicillin G (Verified Allergy, Unknown, 07/12/21) The patient is unaware that she has a penicillin allergy. She does not remember ever taking it and if she did what the reaction was. It has not been recently. Home Medications Acetaminophen 500 Mg Tablet, 500-1,000 MG PO Q8H PRN for PAIN-MILD (1-4), (Reported) Amlodipine Besylate 5 Mg Tablet, 5 MG PO DAILY, (Reported) Apixaban 5 Mg Tablet, 5 MG PO BID, (Reported) Atorvastatin Calcium 20 Mg Tablet, 20 MG PO DAILY, (Reported) Cetirizine HCl 10 Mg Tablet, 10 MG PO DAILY, (Reported) Clopidogrel Bisulfate 75 Mg Tablet, 75 MG PO DAILY, (Reported) Diclofenac Sodium 1 % Gel..gram., 1 APPLIC TOP QID PRN for PAIN-BREAKTHROUGH, (Reported) APPLY TO BACK Docusate Sodium 100 Mg Capsule, 100 MG PO DAILY PRN for CONSTIPATION-1ST LINE, (Reported) Lisinopril 40 Mg Tablet, 40 MG PO DAILY, (Reported) Melatonin 10 Mg Tablet, 10 MG PO HS, (Reported) Metoclopramide HCl 10 Mg Tablet, 10 MG PO BID, (Reported) Metoprolol Succinate 50 Mg Tab.er.24h, 50 MG PO DAILY, (Reported) Montelukast Sodium 10 Mg Tablet, 10 MG PO HS, (Reported) Prednisone 50 Mg Tab, 50 MG PO DAILY Prescribed by: AWILDA RUIZ MD on 04/30/22 0830 Prednisone 50 Mg Tab, 50 MG PO DAILY Prescribed by: AWILDA RUIZ MD on 07/13/22 0934 Sertraline HCl 25 Mg Tablet, 25 MG PO DAILY, (Reported) Trazodone HCl 100 Mg Tablet, 100 MG PO HS, (Reported) Past Medical/Social/Family Hx Patient Social History Tobacco Use?: Yes Tobacco type used: Cigarettes Smoking Status: Former Smoker Use of E-Cig and/or Vaping dev: No Substance use?: No Alcohol Use?: No Pt stated abuse/neglect: No Immunizations Up To Date Influenza Vaccine Up-to-Date: No; Not Current First/Initial COVID19 Vaccinat: RECEIVED, UNK WHEN Second COVID19 Vaccination Taurus: RECEIVED, UNK WHEN Tetanus Booster (TDap): Unknown Date of Pneumonia Vaccine: Mar 23, 2016 Current Status status: No Advance Directives: No Communicates: Verbally Primary Language: Palauan Preferred Spoken Language: Palauan Is interpretation needed?: No Past Medical History PMHx: HTN CHF SurgHx: Cholecystectomy C section Hysterectomy Breast biopsy Family Medical History Family Hx: SOCIAL HISTORY: -SMOKED -DENIES ETOH -DENIES DRUG USE PAST SURGICAL HISTORY: -LEFT HIP FRACTURE WITH HIP REPLACEMENT 06/2021 - -CHOLECYSTECTOMY -TONSILLECTOMY -BREAST BIOPSY -HYSTERECTOMY / BILATERAL SALPINGO-OOPHORECTOMY, WITH ANTERIOR AND POSTERIOR REPAIR [address] HERNANDEZ -EGD / COLONOSCOPY WITH PYLORIC POLYP REMOVAL AND COLON POLYP REMOVAL X 2 11/[address] MURRAY. Review of Systems Constitutional: see HPI Focused Exam Lactate Level 09/02/22 22:57: Lactic Acid Level 1.23 Height, Weight, BMI Height: 5'4.00" Weight: 188lbs. 0.0oz. 85.890222fp; 30.25 BMI Method:Stated Lactic Acid Level Laboratory Tests Test 09/02/22 22:57 Lactic Acid Level 1.23 MMOL/L (0.50-2.00) Exam Exam Patient acknowledged, consented, and participated in this virtual visit which was conducted using real time audio/video Vital Signs Date Time Temp Pulse Resp B/P (MAP) Pulse Ox O2 Delivery O2 Flow Rate FiO2 09/03/22 02:25 91 09/03/22 01:20 82 18 146/92 94 Room Air 09/03/22 00:36 90 32 95 25.00 09/02/22 23:48 95 2.00 09/02/22 22:33 Nasal Cannula 2.00 09/02/22 22:23 100 Nasal Cannula 2.00 09/02/22 22:23 36.8 94 20 196/86 (122) 100 Nasal Cannula 2.00 I & O 09/03/22 07:00 Intake Total 305 ml Balance 305 ml Height & Weight Height: 5'4.00" Weight: 188lbs. 0.0oz. 85.146009qr; 30.25 BMI Method:Stated General Appearance: No Apparent Distress Respiratory: Decreased Breath Sounds, Other (BiPAP 16/5 FIO2 25%) Cardiovascular: Regular Rate, Rhythm, No Edema Capillary Refill: Less Than 3 Seconds Gastrointestinal: normal bowel sounds, soft Neurologic/Psychiatric: Alert, Oriented x3 Results Lab Laboratory Tests 09/02/22 22:57 Assessment/Plan Assessment/Plan AE COPD, will continue on albuterol, Medrol abx, monitor mental status, Critical Care: Critically Ill Patient Time spent with patient (mins): 25 MARIELLE BRINK MD Sep 03, 2022 02:46
[2022-09-03 03:26] LABS: ABG BASE EXCESS 9.8 MMOL/L (-2.5-2.5); ABG OXYGEN SATURATION 96 % (94-100); ABG PCO2 54 MMHG (35-45); ABG PH 7.42 (7.37-7.43); ABG PO2 70 MMHG (79-93); ABG TCO2 36.3 MMOL/L (21.0-31.0)
[2022-09-03 03:27] LABS: ALLENS TEST YES-POS; INSPIRED O2 25%; PATIENT TEMP 36.5; VENTILATOR NO
[2022-09-03] MEDS ORDERED: RT-IPRATROPIUM (ATROVENT) 0.5MG/2.5ML AMP IH PRN (04:00)
[2022-09-03] MEDS ORDERED: RT-ALBUTEROL SULF 2.5 MG/3 ML PRE-MIX VIAL INH PRN (04:00)
[2022-09-03] MEDS: MAGNESIUM 1 GM/100 ML IVPB 100 ML IV SCH ×2 (04:36→05:28)
[2022-09-03] MEDS ORDERED: methylPREDNISolone 125 MG (Solu-MEDROL) VIAL IV SCH (06:00)
[2022-09-03] MEDS ORDERED: KCL 20 MEQ TAB (K-DUR) PO SCH (06:00)
[2022-09-03] MEDS ORDERED: POTASSIUM CL 10MEQ/50ML IVPB 50 ML IV SCH (06:00)
--- NOTE | 2022-09-03 07:30 | History & Physical-Hospitalist ---
History of Present Illness HPI/Chief Complaint CC: Acute on chronic respiratory failure HPI: This is an 81yoWF known to me from prior hospital stays for AECOPD and at [facility] for shreya-psych who presented to the ER with acute on chronic resp failure in need of BiPAP and ICU admit. Currently she is on 2L/min NS O2 and off biPAP and ready to move to 4th floor. Difficult to obtain details due to dementia. She denies pain and no dyspnea. Source: patient Exam Limitations: other (dementia) Date Seen 09/03/22 Time Seen by a Provider: 11:00 Attending Physician Jae Vences DO PCP Admitting Physician: Maya Lentz DO Attending Physician: Maya Lentz DO Referring Physician Date of Admission Sep 03, 2022 at 00:15 Home Medications & Allergies Home Medications Reviewed patient Home Medication Reconciliation performed by pharmacy medication reconciliations waste transportation technician and/or nursing. Patients Allergies have been reviewed. Allergies Allergies Coded Allergies cortisone (Verified Allergy, Unknown, 01/30/07) diphenhydramine (Verified Allergy, Unknown, 01/30/07) penicillin G (Verified Allergy, Unknown, 07/12/21) The patient is unaware that she has a penicillin allergy. She does not remember ever taking it and if she did what the reaction was. It has not been recently. Past Rwaekjm-Olcnyc-Zqqhta Hx Patient Social History Marrital Status: single Employed/Student: retired Tobacco Use?: Yes Tobacco type used: Cigarettes Smoking Status: Former Smoker Use of E-Cig and/or Vaping dev: No Substance use?: No Alcohol Use?: No Pt feels they are or have been: No Immunizations Up To Date Date of Influenza Vaccine: Apr 22, 2020 First/Initial COVID19 Vaccinat: RECEIVED, UNK WHEN Second COVID19 Vaccination Taurus: RECEIVED, UNK WHEN Tetanus Booster (TDap): Unknown PED Vaccines UTD: Yes Date of Pneumonia Vaccine: Mar 23, 2016 Seasonal Allergies Seasonal Allergies: Yes Current Status status: No Advance Directives: No Communicates: Verbally Primary Language: Bhutanese Preferred Spoken Language: Bhutanese Is interpretation needed?: No Past Medical History Surgeries: Section, Gallbladder, Hysterectomy, Oophorectomy, Orthopedic, Tonsillectomy Pneumonia, COPD High Cholesterol, Hypertension Sexually Transmitted Disease: No UTI-Chronic Gastroesophageal Reflux Arthritis, Fractures Hearing Impairment: Hard of Hearing Blood Disorders: Yes (ANEMIA) Adverse Reaction/Blood Tranf: No PMHx: HTN CHF SurgHx: Cholecystectomy C section Hysterectomy Breast biopsy Family Medical History Cancer, COPD, Diabetes, Hypertension SOCIAL HISTORY: -SMOKED -DENIES ETOH -DENIES DRUG USE PAST SURGICAL HISTORY: -LEFT HIP FRACTURE WITH HIP REPLACEMENT 06/2021 - -CHOLECYSTECTOMY -TONSILLECTOMY -BREAST BIOPSY -HYSTERECTOMY / BILATERAL SALPINGO-OOPHORECTOMY, WITH ANTERIOR AND POSTERIOR REPAIR [address] HERNANDEZ -EGD / COLONOSCOPY WITH PYLORIC POLYP REMOVAL AND COLON POLYP REMOVAL X 2 11/[address] MURRAY. Review of Systems Constitutional: see HPI, malaise, weakness Respiratory: dyspnea on exertion Physical Exam Physical Exam Vital Signs Vital Signs - First Documented 09/03/22 02:37 FiO2 25 Capillary Refill : Less Than 3 Seconds Height, Weight, BMI Height: 5'4.00" Weight: 188lbs. 0.0oz. 85.246389mi; 30.25 BMI Method:Stated General Appearance: No Apparent Distress, Chronically ill Eyes: Right Eye Normal Inspection, Right Eye PERRL HEENT: PERRL/EOMI, Normal ENT Inspection, Pharynx Normal, Moist Mucous Membranes Neck: Full Range of Motion, Normal Inspection, Non Tender Respiratory: Chest Non Tender, No Accessory Muscle Use, No Respiratory Distress, Decreased Breath Sounds, Wheezing Cardiovascular: Regular Rate, Rhythm, No Edema, No Gallop, No JVD, No Murmur, Normal Peripheral Pulses Gastrointestinal: Normal Bowel Sounds, No Organomegaly, No Pulsatile Mass, Non Tender, Soft Back: Normal Inspection, No CVA Tenderness, No Vertebral Tenderness Extremity: Normal Capillary Refill, Normal Inspection, Normal Range of Motion, Non Tender, No Calf Tenderness, No Pedal Edema Neurologic/Psychiatric: Alert, Oriented x3, No Motor/Sensory Deficits, department secretary II- XII Norm as Tested, Depressed Affect, Disoriented Skin: Normal Color, Warm/Dry Lymphatic: No Adenopathy Results Results/Procedures Labs Laboratory Tests 09/02/22 22:57 Patient resulted labs reviewed. Assessment/Plan Admission Diagnosis Assessment: Acute on chronic respiratory failure AECOPD CAD Dementia Advanced age Plan: O2 NC Weaned biPAP Move to 4th floor Admission Status: Inpatient Order (span 2 midnights) Reason for Inpatient Admission: resp fail MAYA LENTZ DO Sep 03, 2022 07:30
--- NOTE | 2022-09-03 07:40 | Diagnostic Imaging Report ---
INDICATION: Shortness of breath. COMPARISON: 09/01/2022. FINDINGS: There is blunting of the left costophrenic angle which was also present on the previous exam. Lungs otherwise appear clear. There is no large effusion. There is no pneumothorax. Heart and mediastinal contours are stable. Pulmonary vascularity appears appropriate. IMPRESSION: 1. Chronic blunting of the left costophrenic angle. No new or acute cardiopulmonary process evident. Dictated by: Dictated on workstation # [id number]
[2022-09-03] MEDS: RT-IPRATROPIUM (ATROVENT) 0.5MG/2.5ML AMP IH SCH ×5 (07:45→22:53)
[2022-09-03] MEDS: RT-ALBUTEROL SULF 2.5 MG/3 ML PRE-MIX VIAL INH SCH ×5 (07:45→22:53)
--- NOTE | 2022-09-03 08:27 | Tele-ICU Progress Note ---
Progress Note maximus cintron completed 81 y/o with hx of COPD from tobacco use admitted with acute exacerbation of COPD Being treated with steroids and nebs. ABG this am 7. PLAN: wilfred kumar tx for her COPD Focused Exam Lactate Level 09/02/22 22:57: Lactic Acid Level 1.23 Height, Weight, BMI Height: 5'4.00" Weight: 188lbs. 0.0oz. 85.754314hg; 30.25 BMI Method:Stated Labs Laboratory Tests 09/02/22 22:57 Results Results/Procedures Lab Laboratory Tests 09/02/22 22:57 Results Labs Labs Laboratory Tests 09/02/22 22:40: Influenza Type A (RT-PCR) Not Detected, Influenza Type B (RT-PCR) Not Detected, SARS-CoV-2 RNA (RT-PCR) Not Detected 09/02/22 22:57: White Blood Count 6.2, Red Blood Count 3.18L, Hemoglobin 9.5L, Hematocrit 32L, Mean Corpuscular Volume 99, Mean Corpuscular Hemoglobin 30, Mean Corpuscular Hemoglobin Concent 30L, Red Cell Distribution Width 14.7H, Platelet Count 122L, Mean Platelet Volume 11.0, Immature Granulocyte % (Auto) 1, Neutrophils (%) (Auto) 74, Lymphocytes (%) (Auto) 15, Monocytes (%) (Auto) 10, Eosinophils (%) (Auto) 1, Basophils (%) (Auto) 0, Neutrophils # (Auto) 4.6, Lymphocytes # (Auto) 0.9L, Monocytes # (Auto) 0.6, Eosinophils # (Auto) 0.1, Basophils # (Auto) 0.0, Immature Granulocyte # (Auto) 0.0, Percent Immature Platelet Fraction 5.1, Erythrocyte Sedimentation Rate 62H, Prothrombin Time 18.9H, INR Comment 1.5H, Activated Partial Thromboplast Time 39H, D-Dimer 0.83H, Sodium Level 142, Potassium Level 3.9, Chloride Level 99, Carbon Dioxide Level 30, Anion Gap 13, Blood Urea Nitrogen 19H, Creatinine 0.78, Estimat Glomerular Filtration Rate 75, BUN/Creatinine Ratio 24, Glucose Level 143H, Lactic Acid Level 1.23, Calcium Level 9.1, Corrected Calcium 9.3, Magnesium Level 1.8, Total Bilirubin 0.4, Aspartate Amino Transf (AST/SGOT) 17, Alanine Aminotransferase (ALT/SGPT) 16, Alkaline Phosphatase 89, Total Creatine Kinase 17L, Creatine Kinase MB 0.5, Myoglobin 25.8, Troponin I < 0.028, C-Reactive Protein High Sensitivity 10.46H, B-Type Natriuretic Peptide 134.9H, Total Protein 7.2, Albumin 3.8 09/02/22 23:56: Blood Gas Puncture Site LR, Blood Gas Patient Temperature 36.8, Arterial Blood pH 7.32*L, Arterial Blood Partial Pressure CO2 72*H, Arterial Blood Partial Pressure O2 71L, Arterial Blood HCO3 37H, Arterial Blood Total CO2 38.7H, Arterial Blood Oxygen Saturation 95, Arterial Blood Base Excess 10.3H, Iam Test YES-POS, Blood Gas Ventilator Setting NO, Blood Gas Inspired Oxygen 2 09/03/22 01:00: Urine Color YELLOW, Urine Clarity CLEAR, Urine pH 6.5, Urine Specific [place] 1.020, Urine Protein 2+H, Urine Glucose (UA) NEGATIVE, Urine Ketones NEGATIVE, Urine Nitrite POSITIVEH, Urine Bilirubin NEGATIVE, Urine Urobilinogen 1.0, Urine Leukocyte Esterase NEGATIVE, Urine RBC (Auto) TRACE-IH, Urine RBC 0-2, Urine WBC 50-100H, Urine Squamous Epithelial Cells RARE, Urine Crystals NONE, Urine Bacteria MODERATEH, Urine Casts NONE, Urine Mucus SMALLH, Urine Culture Indicated CULTURE PENDING 09/03/22 03:19: Blood Gas Puncture Site LEFT RADIAL, Blood Gas Patient Temperature 36.5, Arterial Blood pH 7.42, Arterial Blood Partial Pressure CO2 54H, Arterial Blood Partial Pressure O2 70L, Arterial Blood HCO3 35H, Arterial Blood Total CO2 36.3H , Arterial Blood Oxygen Saturation 96, Arterial Blood Base Excess 9.8H, Iam Test YES-POS, Blood Gas Ventilator Setting NO, Blood Gas Inspired Oxygen 25% MARIELLE KENNEDY MD Sep 03, 2022 08:27
[2022-09-03] MEDS ORDERED: lisINopril 40 MG (PRINIVIL) TABLET PO SCH (09:00)
[2022-09-03] MEDS ORDERED: meTOproloL SUCCINATE 50 MG (TOPROL XL) TAB PO SCH (09:00)
[2022-09-03] MEDS ORDERED: amLODIPine 5 MG (NORVASC) TAB PO SCH (09:00)
[2022-09-03] MEDS ORDERED: CALCIUM CARBONATE 500 MG (TUMS) TAB.CHEW PO PRN (11:30)
[2022-09-03] MEDS ORDERED: DICLOFENAC 1% GEL 100 GM (VOLTAREN) TUBE TOP PRN (11:30)
[2022-09-03] MEDS ORDERED: LACTULOSE SYRUP 10GM/15ML (ENULOSE) 30ML UDC PO PRN (11:30)
[2022-09-03] MEDS ORDERED: HYDROmorphone 2 MG/ML VIAL (DILAUDID) IV PRN (11:30)
[2022-09-03] MEDS ORDERED: MILK OF MAGNESIA 400 MG/5 ML 30 ML UDC PO PRN (11:30)
[2022-09-03] MEDS ORDERED: DOCUSATE SODIUM 100 MG (COLACE) CAP PO PRN (11:30)
[2022-09-03] MEDS ORDERED: ONDANSETRON 4 MG (ZOFRAN) ORAL DISSOLVE TAB PO PRN (11:30)
[2022-09-03] MEDS ORDERED: polyethylene glycoL POWDER 17 GM (MIRALAX) PACK PO PRN (11:30)
[2022-09-03] MEDS ORDERED: BISACODYL 10 MG SUPP (DULCOLAX) PR PRN (11:30)
[2022-09-03] MEDS ORDERED: MELATONIN 3 MG TABLET PO PRN (11:30)
[2022-09-03] MEDS ORDERED: ACETAMINOPHEN 325 MG TABLET PO PRN (11:30)
[2022-09-03] MEDS ORDERED: ANTACID SUSP 30 ML UDC (MYLANTA) PO PRN (11:30)
[2022-09-03] MEDS: methylPREDNISolone 125 MG (Solu-MEDROL) VIAL IVP SCH ×3 (12:43→23:23)
[2022-09-03] MEDS: SENNOSIDES 8.6 MG (SENOKOT) TAB PO SCH (19:47)
[2022-09-03] MEDS: APIXABAN 5 MG (ELIQUIS) TABLET PO SCH (19:47)
[2022-09-03] MEDS: MELATONIN 10 MG TABLET PO SCH (19:47)
[2022-09-03] MEDS: DOCUSATE SODIUM 100 MG (COLACE) CAP PO SCH (19:47)
[2022-09-03] MEDS: MONTELUKAST 10 MG (SINGULAIR) TAB PO SCH (19:47)
[2022-09-03] MEDS: METOCLOPRAMIDE 10 MG (REGLAN) TAB PO SCH (19:47)
[2022-09-03] MEDS: cefTRIAXone 1 GM/50 ML (PRE-MIX) IV SCH (21:05)
[2022-09-03] MEDS ORDERED: AZITHROMYCIN 500 MG/NS 250 ML IVPB IV SCH ×2 (22:00)
[2022-09-04] MEDS: RT-ALBUTEROL SULF 2.5 MG/3 ML PRE-MIX VIAL INH SCH ×6 (03:02→22:12)
[2022-09-04] MEDS: RT-IPRATROPIUM (ATROVENT) 0.5MG/2.5ML AMP IH SCH ×6 (03:02→22:12)
[2022-09-04 03:26] VITALS: BP 155/72
[2022-09-04] MEDS: methylPREDNISolone 125 MG (Solu-MEDROL) VIAL IVP SCH ×3 (05:41→17:25)
[2022-09-04 06:09] LABS: BASOPHILS % (AUTO) 0 % (0-10); EOSINOPHILS % (AUTO) 0 % (0-10); HEMATOCRIT 26 % (35-52); HEMOGLOBIN 8.1 g/dL (11.5-16.0); LYMPHOCYTES # (AUTO) 0.3 10^3/uL (1.0-4.0); LYMPHOCYTES % (AUTO) 7 % (12-44); MEAN CORPUSCULAR HEMOGLOBIN 29 pg (25-34); MEAN CORPUSCULAR HGB CONC 31 g/dL (32-36); MEAN CORPUSCULAR VOLUME 95 fL (80-99); MEAN PLATELET VOLUME 11.1 fL (9.0-12.2); MONOCYTES # (AUTO) 0.1 10^3/uL (0.0-1.0); MONOCYTES % (AUTO) 4 % (0-12); NEUTROPHILS # (AUTO) 3.2 10^3/uL (1.8-7.8); NEUTROPHILS % (AUTO) 89 % (42-75); PLATELET COUNT 123 10^3/uL (130-400); WHITE BLOOD COUNT 3.7 10^3/uL (4.3-11.0)
[2022-09-04 06:22] LABS: ALBUMIN 3.5 GM/DL (3.2-4.5); POTASSIUM 3.5 MMOL/L (3.6-5.0)
[2022-09-04 06:23] LABS: CALCIUM 8.8 MG/DL (8.5-10.1)
[2022-09-04 06:24] LABS: TOTAL PROTEIN 6.6 GM/DL (6.4-8.2)
[2022-09-04 06:26] LABS: BAND NEUTROPHILS 0 %; BILIRUBIN,TOTAL 0.2 MG/DL (0.1-1.0); LYMPHOCYTES % (MANUAL) 9 %; NEUTROPHILS % (MANUAL) 87 %
[2022-09-04 06:27] LABS: ANISOCYTOSIS SLIGHT; BASOPHILS % (MANUAL) 0 %; ELLIPT/OVALOCYTES SLIGHT; EOSINOPHILS % (MANUAL) 0 %; HYPOCHROMASIA SLIGHT; MONOCYTES % (MANUAL) 4 %; POLYCHROMASIA SLIGHT
[2022-09-04 06:28] LABS: CREATININE SERUM 1.07 MG/DL (0.60-1.30)
[2022-09-04 06:31] LABS: MAGNESIUM 2.2 MG/DL (1.6-2.4)
[2022-09-04 08:06] VITALS: BP 163/81
[2022-09-04] MEDS: APIXABAN 5 MG (ELIQUIS) TABLET PO SCH ×2 (08:50→20:48)
[2022-09-04] MEDS: LORATADINE (CLARITIN) 10 MG TAB PO SCH (08:50)
[2022-09-04] MEDS: SENNOSIDES 8.6 MG (SENOKOT) TAB PO SCH ×2 (08:50→20:48)
[2022-09-04] MEDS: DOCUSATE SODIUM 100 MG (COLACE) CAP PO SCH ×2 (08:50→21:00)
[2022-09-04] MEDS: amLODIPine 5 MG (NORVASC) TAB PO SCH (08:50)
[2022-09-04] MEDS: METOCLOPRAMIDE 10 MG (REGLAN) TAB PO SCH ×2 (08:50→20:48)
[2022-09-04] MEDS: CLOPIDOGREL 75 MG (PLAVIX) TABLET PO SCH (08:50)
[2022-09-04] MEDS: lisINopril 40 MG (PRINIVIL) TABLET PO SCH (08:51)
[2022-09-04] MEDS: SERTRALINE 50 MG (ZOLOFT) TABLET PO SCH (08:51)
[2022-09-04] MEDS: meTOproloL SUCCINATE 50 MG (TOPROL XL) TAB PO SCH (08:51)
--- NOTE | 2022-09-04 11:26 | Physical Therapy Evaluation ---
PT Evaluation-General Medical Diagnosis Admission Date Sep 03, 2022 at 00:15 Medical Diagnosis: respiratory failure/COPD exacerbation Onset Date: Sep 03, 2022 Therapy Diagnosis Therapy Diagnosis: debility/weakness Height/Weight Height (Feet): 5 Height (Inches): 4.00 Weight (Pounds): 188 Weight (Ounces): 0.0 Precautions Precautions/Isolations: Standard Precautions Referral Physician: Aidee Reason for Referral: Evaluation/Treatment Medical History Pertinent Medical History: Arthritis, COPD (2L continuous), Dementia, Heart Failure, HTN Current History ER secondary to SOA and feeling ill x 1 week Reviewed History: Yes Social History Home: Single Level Current Living Status: Other Family Prior Prior Level of Function SCALE: Activities may be completed with or without assistive devices. 9-Jwrboknges-daiwyds completes the activity by him/herself with no assistance from a helper. 5-Set-up or Clean-up Assistance-helper sets up or cleans up; patient completes activity. [place] assists only prior to or following the activity. 4-Supervision or Touching Assistance-helper provides verbal cues and/or touching/steadying and/or contact guard assistance as patient completes activity. Assistance may be provided throughout the activity or intermittently. 3-Partial/Moderate Assistance-helper does LESS THAN HALF the effort. [place] lifts, holds or supports trunk or limbs, but provides less than half the effort. 2-Substantial/Maximal Assistance-helper does MORE THAN HALF the effort. [place] lifts or holds trunk or limbs and provides more than half the effort. 9-Jhtqnbena-wrmkrz does ALL the effort. Patient does none of the effort to complete the activity. Or, the assistance of 2 or more helpers is required for the patient to complete the activity. If activity was not attempted, code reason: 7-Patient Refused. 9-Not Applicable-not attempted and the patient did not perform the activity before the current illness, exacerbation or injury. 10-Not Attempted due to Environmental Limitations-(lack of equipment, weather restraints, etc.). 88-Not Attempted due to Medical Conditions or Safety Concerns. Bed Mobility: 6 Transfers (B,C,W/C): 6 Gait: 6 Indoor Mobility (Ambulation): Independent Prior Devices Use: Walker PT Evaluation-Current Subjective Patient agrees to PT. Objective Patient Orientation: Person, Time, Situation Attachments: Oxygen ROM/Strength ROM Lower Extremities bilateral LE WFL Strength Lower Extremities 4-/5 grossly bilateral LE all planes Integumentary/Posture Bowel Incontinence: No Bladder Incontinence: No Posture WFL Neuromuscular (Tone, Coordination, Reflexes) grossly intact Sensory Vision: Functional Hearing: Functional Transfers Lying to Sitting/Side of Bed(Q: 4 Sit to Stand (QC): 4 Chair/Lib-yj-Bvypx Xfer(QC): 4 Gait Mode of Locomotion: Walk Anticipated Mode of Locomotion: Walk Walk 10 feet (QC): 4 Walk 50 ft with 2 Turns(QC): 4 Walk 150 ft (QC): 4 Distance: 225' Gait Assistive Device: FWW Comments/Gait Description functional gait sequence Balance Sitting Static: Normal Sitting Dynamic: Normal Standing Static: Fair Standing Dynamic: Fair Assessment/Needs Patient does fatigue quickly with activity. Patient will benefit from skilled PT to address functional strength and mobility to improve current LOF to safely return to home at maximum LOF. Rehab Potential: Guarded PT [employer] Manager Goals Longterm Goals PT Longterm Goals Time Frame: Sep 16, 2022 Roll Left & Right (QC): 6 Sit to Lying (QC): 6 Lying-Sitting on Side/Bed(QC): 6 Sit to Stand (QC): 6 Chair/Ivq-rr-Vivrc Xfer(QC): 6 Toilet Transfer (QC): 6 Walk 10 feet (QC): 5 Walk 50ft with 2 Turns (QC): 5 Walk 150 ft (QC): 5 PT Plan Problem List Problem List: Activity Tolerance, Functional Strength, Safety, Balance, Gait, Transfer Treatment/Plan Treatment Plan: Continue Plan of Care Treatment Plan: Education, Functional Activity Josh, Functional Strength, Gait, Safety, Therapeutic Exercise, Transfers Treatment Duration: Sep 16, 2022 Frequency: 6 times per week Estimated Hrs Per Day: .25 hour per day Patient and/or Family Agrees t: Yes Time Time In: 1030 Time Out: 1041 DATE: Sep 04, 2022 Total Billed Treatment Time: 11 Total Billed Treatment 1 visit EVMod 11 min TEGAN SAUL PT Sep 04, 2022 11:26
[2022-09-04 11:32] VITALS: BP 120/58
--- NOTE | 2022-09-04 13:59 | Occupational Therapy Eval ---
OT Evaluation-General/PLF Medical Diagnosis Admission Date Sep 03, 2022 at 00:15 Medical Diagnosis: respiratory failure/COPD exacerbation Onset Date: Sep 03, 2022 Therapy Diagnosis Therapy Diagnosis: weakness Height/Weight Height (Feet): 5 Height (Inches): 4.00 Weight (Pounds): 188 Weight (Ounces): 0.0 Precautions Precautions/Isolations: Fall Prevention, Standard Precautions Weight Bear Status Weight Bearing Restriction: Weight Bearing/Tolerated Referral Physician: Aidee Referral Reason: Evaluation/Treatment Medical History Pertinent Medical History: Arthritis, COPD (2L continuous), Dementia, Heart Failure, HTN Current History This is an 81yoWF known to me from prior hospital stays for AECOPD and at [facility] [place] shreya-psych who presented to the ER with acute on chronic resp failure in need of BiPAP and ICU admit. Currently she is on 2L/min NS O2 and off biPAP . Difficult to obtain details due to dementia Social History Home: Single Level Current Living Status: Other Family ADL-Prior Level of Function SCALE: Activities may be completed with or without assistive devices. 1-Xzeenaghql-ggmmohc completes the activity by him/herself with no assistance from a helper. 5-Set-up or Clean-up Assistance-helper sets up or cleans up; patient completes activity. [place] assists only prior to or following the activity. 4-Supervision or Touching Assistance-helper provides verbal cues and/or touching/steadying and/or contact guard assistance as patient completes activity. Assistance may be provided throughout the activity or intermittently. 3-Partial/Moderate Assistance-helper does LESS THAN HALF the effort. [place] lifts, holds or supports trunk or limbs, but provides less than half the effort. 2-Substantial/Maximal Assistance-helper does MORE THAN HALF the effort. [place] lifts or holds trunk or limbs and provides more than half the effort. 7-Xofnbkwqg-dzxcef does ALL the effort. Patient does none of the effort to comp lete the activity. Or, the assistance of 2 or more helpers is required for the patient to complete the activity. If activity was not attempted, code reason: 7-Patient Refused. 9-Not Applicable-not attempted and the patient did not perform the activity before the current illness, exacerbation or injury. 10-Not Attempted due to Environmental Limitations-(lack of equipment, weather restraints, etc.). 88-Not Attempted due to Medical Conditions or Safety Concerns. Self Care: Unknown Functional Cognition: Unknown Drive Self: No OT Current Status Subjective Sitting up in recliner, IV is bleeding and RN notified/ reinsert at different site Mental Status/Objective Patient Orientation: Person, Confused Attachments: IV Current Upper Extremity ROM BUE WFLS Upper Extremity Coordination slightly delayed [facility] UEs ADL-Treatment ADL-Current hospital gown change. During standing assessment old IV site bled on gown, FWW and floor. Eating (QC): 6 Oral Hygiene (QC): 4 Shower/Bathe Self (QC): 88 Upper Body Dressing (QC): 4 Lower Body Dressing (QC): 3 On/Off Footwear (QC): 4 Toileting Hygiene (QC): 3 Education OT Patient Education: Disease process, Energy conservation, Exercise program, Modified ADL techniques, Progress toward Goal/Update tx plan, Purpose of tx/functional activities, Reviewed precautions, Rehab process, Safety issues, Transfer techniques, Use of adapted equipment Teaching Recipient: Patient Teaching Methods: Demonstration, Discussion Response to Teaching: Verbalize Understanding, Return Demonstration, Reinforcement Needed OT Prison Goals Prison Goals Time Frame: Sep 16, 2022 Eating (QC): 6 Oral Hygiene (QC): 5 Toileting Hygiene (QC): 5 Shower/Bathe Self (QC): 4 Upper Body Dressing (QC): 5 Lower Body Dressing (QC): 5 On/Off Footwear (QC): 5 1=Demonstrate adherence to instructed precautions during ADL tasks. 2=Patient will verbalize/demonstrate understanding of assistive devices/modifications for ADL. 3=Patient will improve strength/tolerance for activity to enable patient to perform ADL's. OT Education/Plan Problem List/Assessment Assessment: Decreased Activ Tolerance, Decreased Safety Aware, Decreased UE Strength, Impaired Coordination, Impaired Funct Balance, Impaired Self-Care Skills Discharge Recommendations Plan/Recommendations: Continue POC Therapy Discharge Recommendati: Post Acute OT Treatment Plan/Plan of Care Patient would benefit from OT for education, treatment and training to promote independence in ADL's, mobility, safety and/or upper extremity function for ADL's. Plan of Care: ADL Retraining, Cognitive Retraining, Functional Mobility, Group Exercise/Act as Ind, UE Funct Exercise/Act Treatment Duration: Sep 16, 2022 Frequency: 3 times per week (3-5 times per week) Estimated Hrs Per Day: .25 hour per day Agreement: Yes Rehab Potential: Guarded Up in recliner, ordered lunch, all needs met Time Start Time: 11:50 Stop Time: 12:15 DATE: Sep 04, 2022 Total Time Billed (hr/min): 25 Billed Treatment Time 1 visit EVM 1, ADL 1 25 min GEOVANNI CHRISTENSEN OT Sep 04, 2022 13:59
--- NOTE | 2022-09-04 14:10 | Progress Note ---
Subjective Subjective/Events-last exam Patient states that she feels about the same as yesterday. She has gotten up and into the chair yesterday. Denies any pain. + Shortness of breath with activity. Review of Systems General: Fatigue, Malaise Pulmonary: Dyspnea, Cough Cardiovascular: No: Chest Pain, Edema Gastrointestinal: No: Nausea, Vomiting, Abdominal Pain, Diarrhea, Constipation Neurological: Weakness, Confusion Focused Exam Lactate Level 09/02/22 22:57: Lactic Acid Level 1.23 Objective Exam Last Set of Vital Signs Vital Signs Date Time Temp Pulse Resp B/P (MAP) Pulse Ox O2 Delivery O2 Flow Rate FiO2 09/04/22 11:32 36.3 78 18 120/58 (78) 98 Nasal Cannula 2.00 09/03/22 12:39 25 Capillary Refill : NONE I&O Intake and Output 09/04/22 00:00 Intake Total 1355 ml Output Total 975 ml Balance 380 ml Intake Oral 1050 ml IV Total 305 ml Output Urine Total 975 ml # Voids 1 # Bowel Movements 1 Daily Weight Change No General: Alert, Mild Distress (with activity) Lungs: Other (diffuse wheezing, normal work of breathing) Heart: Regular Rate, No Murmurs Abdomen: Soft, No Tenderness, No Masses Extremities: No Edema, No Tenderness/Swelling Neuro: Normal Speech, Cranial Nerves 3-12 NL Psych/Mental Status: Mental Status NL, Mood NL Results/Procedures Lab Laboratory Tests 09/04/22 05:25: White Blood Count 3.7L, Red Blood Count 2.76L, Hemoglobin 8.1L, Hematocrit 26L, Mean Corpuscular Volume 95, Mean Corpuscular Hemoglobin 29, Mean Corpuscular Hemoglobin Concent 31L, Red Cell Distribution Width 14.8H, Platelet Count 123L, Mean Platelet Volume 11.1, Immature Granulocyte % (Auto) 1, Neutrophils (%) (Auto) 89H, Lymphocytes (%) (Auto) 7L, Monocytes (%) (Auto) 4, Eosinophils (%) (Auto) 0, Basophils (%) (Auto) 0, Neutrophils # (Auto) 3.2, Lymphocytes # (Auto) 0.3L, Monocytes # (Auto) 0.1, Eosinophils # (Auto) 0.0, Basophils # (Auto) 0.0, Immature Granulocyte # (Auto) 0.0, Neutrophils % (Manual) 87, Lymphocytes % (Manual) 9, Monocytes % (Manual) 4, Eosinophils % (Manual) 0, Basophils % (Manual) 0, Band Neutrophils 0, Polychromasia SLIGHT, Hypochromasia SLIGHT, Anisocytosis SLIGHT, Elliptocytes SLIGHT, Sodium Level 141, Potassium Level 3.5L , Chloride Level 102, Carbon Dioxide Level 27, Anion Gap 12, Blood Urea Nitrogen 33H, Creatinine 1.07, Estimat Glomerular Filtration Rate 52, BUN/Creatinine Ratio 31, Glucose Level 170H, Calcium Level 8.8, Corrected Calcium 9.2, Magnesium Level 2.2, Total Bilirubin 0.2, Aspartate Amino Transf (AST/SGOT) 16, Alanine Aminotransferase (ALT/SGPT) 12, Alkaline Phosphatase 71, Total Protein 6.6, Albumin 3.5 Microbiology 09/03/22 Blood Culture - Preliminary, Resulted No growth 09/03/22 MRSA Screen - Final, Complete MRSA not isolated 09/03/22 Urine Culture - Preliminary, Resulted Gram Negative Bacillus 1 Assessment/Plan Assessment/Plan (1) Acute respiratory failure with hypercapnia Status: Acute Assessment & Plan: 09/04: Admitted on bipap and been doing well on 2L NC, C ontinues on 2L NC, PT ordered (2) COPD exacerbation Status: Acute (3) Hypertension Status: Chronic Assessment & Plan: 09/04: Continue home meds Qualifiers: Qualified Codes: I10 - Essential (primary) hypertension (4) Hyperlipidemia Status: Chronic (5) Coronary artery disease without angina pectoris Status: Chronic Qualifiers: Qualified Codes: I25.10 - Atherosclerotic heart disease of [place] coronary artery without angina pectoris (6) Normocytic anemia Status: Chronic Assessment & Plan: 09/04: No signs of acute bleeding, will get iron panel (7) Chronic anticoagulation Status: Chronic MAC LINDSEY MD Sep 04, 2022 14:10
[2022-09-04 15:28] VITALS: BP 161/75
[2022-09-04 19:29] VITALS: BP 132/76
[2022-09-04] MEDS: MELATONIN 10 MG TABLET PO SCH (20:48)
[2022-09-04] MEDS: cefTRIAXone 1 GM/50 ML (PRE-MIX) IV SCH (20:48)
[2022-09-04] MEDS: MONTELUKAST 10 MG (SINGULAIR) TAB PO SCH (20:48)
[2022-09-04] MEDS: AZITHROMYCIN 250 MG TAB (ZITHROMAX) PO SCH (20:48)
[2022-09-05] VITALS (10 sets, daily range): BP systolic 118–179; BP diastolic 70–90
[2022-09-05] MEDS: methylPREDNISolone 125 MG (Solu-MEDROL) VIAL IVP SCH ×4 (00:11→18:17)
[2022-09-05] MEDS: RT-IPRATROPIUM (ATROVENT) 0.5MG/2.5ML AMP IH SCH ×6 (02:36→21:01)
[2022-09-05] MEDS: RT-ALBUTEROL SULF 2.5 MG/3 ML PRE-MIX VIAL INH SCH ×6 (02:36→21:01)
[2022-09-05 05:49] LABS: BASOPHILS % (AUTO) 0 % (0-10); EOSINOPHILS % (AUTO) 0 % (0-10); HEMATOCRIT 27 % (35-52); HEMOGLOBIN 8.4 g/dL (11.5-16.0); LYMPHOCYTES # (AUTO) 0.2 10^3/uL (1.0-4.0); LYMPHOCYTES % (AUTO) 5 % (12-44); MEAN CORPUSCULAR HEMOGLOBIN 30 pg (25-34); MEAN CORPUSCULAR HGB CONC 31 g/dL (32-36); MEAN CORPUSCULAR VOLUME 95 fL (80-99); MEAN PLATELET VOLUME 10.9 fL (9.0-12.2); MONOCYTES # (AUTO) 0.2 10^3/uL (0.0-1.0); MONOCYTES % (AUTO) 4 % (0-12); NEUTROPHILS # (AUTO) 4.3 10^3/uL (1.8-7.8); NEUTROPHILS % (AUTO) 90 % (42-75); PLATELET COUNT 161 10^3/uL (130-400); WHITE BLOOD COUNT 4.7 10^3/uL (4.3-11.0)
[2022-09-05 05:59] LABS: ALBUMIN 3.5 GM/DL (3.2-4.5); POTASSIUM 3.7 MMOL/L (3.6-5.0)
[2022-09-05 06:01] LABS: CALCIUM 8.6 MG/DL (8.5-10.1)
[2022-09-05 06:02] LABS: TOTAL PROTEIN 6.4 GM/DL (6.4-8.2)
[2022-09-05 06:04] LABS: BILIRUBIN,TOTAL 0.2 MG/DL (0.1-1.0)
[2022-09-05 06:05] LABS: CREATININE SERUM 1.07 MG/DL (0.60-1.30)
[2022-09-05 06:08] LABS: MAGNESIUM 2.2 MG/DL (1.6-2.4)
[2022-09-05] MEDS: SENNOSIDES 8.6 MG (SENOKOT) TAB PO SCH ×2 (09:27→20:10)
[2022-09-05] MEDS: SERTRALINE 50 MG (ZOLOFT) TABLET PO SCH (09:28)
[2022-09-05] MEDS: LORATADINE (CLARITIN) 10 MG TAB PO SCH (09:28)
[2022-09-05] MEDS: APIXABAN 5 MG (ELIQUIS) TABLET PO SCH ×2 (09:28→20:10)
[2022-09-05] MEDS: DOCUSATE SODIUM 100 MG (COLACE) CAP PO SCH ×2 (09:28→20:09)
[2022-09-05] MEDS: CLOPIDOGREL 75 MG (PLAVIX) TABLET PO SCH (09:28)
[2022-09-05] MEDS: meTOproloL SUCCINATE 50 MG (TOPROL XL) TAB PO SCH (09:28)
[2022-09-05] MEDS: amLODIPine 5 MG (NORVASC) TAB PO SCH (09:28)
[2022-09-05] MEDS: METOCLOPRAMIDE 10 MG (REGLAN) TAB PO SCH ×2 (09:29→20:10)
[2022-09-05] MEDS: lisINopril 40 MG (PRINIVIL) TABLET PO SCH (09:29)
--- NOTE | 2022-09-05 09:41 | Occupational Ther Daily Note ---
OT Current Status-Daily Note Subjective Reclined in recliner w/ legs elevated, just finished breakfast and request to use commode Mental Status/Objective Patient Orientation: Person, Place Attachments: IV ADL-[facility] [place] w/ 02 2 liters NC, successful BM. hygiene completed and disposable pull on brief donned. Return to recliner following hand hygiene. Pt request coffee. Therapy Code Descriptions/Definitions Functional [place] Measure: 0=Not Assessed/NA 4=Minimal Assistance 1=Total Assistance 5=Supervision or Setup 2=Maximal Assistance 6=Modified [place] 3=Moderate Assistance 7=Complete IndependenceSCALE: Activities may be completed with or without assistive devices. 0-Kunjncqqbu-ljffuzw completes the activity by him/herself with no assistance from a helper. 5-Set-up or Clean-up Assistance-helper sets up or cleans up; patient completes activity. [place] assists only prior to or following the activity. 4-Supervision or Touching Assistance-helper provides verbal cues and/or touching/steadying and/or contact guard assistance as patient completes activity. Assistance may be provided throughout the activity or intermittently. 3-Partial/Moderate Assistance-helper does LESS THAN HALF the effort. [place] lifts, holds or supports trunk or limbs, but provides less than half the effort. 2-Substantial/Maximal Assistance-helper does MORE THAN HALF the effort. [place] lifts or holds trunk or limbs and provides more than half the effort. 4-Vcdlnbkty-riqmak does ALL the effort. Patient does none of the effort to complete the activity. Or, the assistance of 2 or more helpers is required for the patient to complete the activity. If activity was not attempted, code reason: 7-Patient Refused. 9-Not Applicable-not attempted and the patient did not perform the activity before the current illness, exacerbation or injury. 10-Not Attempted due to Environmental Limitations-(lack of equipment, weather restraints, etc.). 88-Not Attempted due to Medical Conditions or Safety Concerns. Eating (QC): 5 (set up required, unable to open powder creamer packets) Oral Hygiene (QC): 7 (declilned) Shower/Bathe Self (QC): 7 (declilned) Upper Body Dressing (QC): 4 Lower Body Dressing (QC): 3 On/Off Footwear: 3 Toileting Hygiene (QC): 3 Toilet Transfer (QC): 4 Education OT Patient Education: Correct positioning, Modified ADL techniques, Progress toward Goal/Update tx plan, Purpose of tx/functional activities, Reviewed precautions, Rehab process, Safety issues, Transfer techniques, Use of adapted equipment Teaching Recipient: Patient Teaching Methods: Demonstration, Discussion Response to Teaching: Verbalize Understanding, Return Demonstration OT Hospital Staff Pharmacist Goals Snf Goals Time Frame: Sep 16, 2022 Eating (QC): 6 Oral Hygiene (QC): 5 Toileting Hygiene (QC): 5 Shower/Bathe Self (QC): 4 Upper Body Dressing (QC): 5 Lower Body Dressing (QC): 5 On/Off Footwear (QC): 5 1=Demonstrate adherence to instructed precautions during ADL tasks. 2=Patient will verbalize/demonstrate understanding of assistive devices/modifications for ADL. 3=Patient will improve strength/tolerance for activity to enable patient to perform ADL's. OT Education/Plan Problem List/Assessment Assessment: Decreased Activ Tolerance, Decreased Safety Aware, Impaired Coordination, Impaired Funct Balance, Impaired Self-Care Skills Discharge Recommendations Plan/Recommendations: Continue POC Treatment Plan/Plan of Care Treatment,Training & Education: Yes Patient would benefit from OT for education, treatment and training to promote independence in ADL's, mobility, safety and/or upper extremity function for ADL's. Plan of Care: ADL Retraining, Cognitive Retraining, Functional Mobility, Group Exercise/Act as Ind, UE Funct Exercise/Act Treatment Duration: Sep 16, 2022 Frequency: 3 times per week (3-5 times per week) Estimated Hrs Per Day: .25 hour per day Agreement: Yes Rehab Potential: Guarded Time Start Time: 09:14 Stop Time: 09:28 DATE: Sep 05, 2022 Total Time Billed (hr/min): 24 Billed Treatment Time 1 visit ADL 2 24 minutes GEOVANNI CHRISTENSEN OT Sep 05, 2022 09:41
--- NOTE | 2022-09-05 10:39 | Physical Therapy Daily Note ---
PT Daily Note-Current Subjective Patient agrees to PT. No c/o at this time. Pain Section J - Health Conditions 1. Rarely or not at all 2. Occasionally 3. Frequently 4. Almost constantly 8. Unable to answer Pain Effect on Sleep: 1 Pain Interference with Therapy: 1 Pain Interference w/Day-to-Day: 1 Mental Status Patient Orientation: Normal For Age Attachments: Oxygen (2L) Transfers SCALE: Activities may be completed with or without assistive devices. 8-Djyvzpcacm-epkkzsb completes the activity by him/herself with no assistance from a helper. 5-Set-up or Clean-up Assistance-helper sets up or cleans up; patient completes activity. [place] assists only prior to or following the activity. 4-Supervision or Touching Assistance-helper provides verbal cues and/or touching/steadying and/or contact guard assistance as patient completes activity. Assistance may be provided throughout the activity or intermittently. 3-Partial/Moderate Assistance-helper does LESS THAN HALF the effort. [place] lifts, holds or supports trunk or limbs, but provides less than half the effort. 2-Substantial/Maximal Assistance-helper does MORE THAN HALF the effort. [place] lifts or holds trunk or limbs and provides more than half the effort. 5-Wsakkpwxl-kdxgce does ALL the effort. Patient does none of the effort to complete the activity. Or, the assistance of 2 or more helpers is required for the patient to complete the activity. If activity was not attempted, code reason: 7-Patient Refused. 9-Not Applicable-not attempted and the patient did not perform the activity before the current illness, exacerbation or injury. 10-Not Attempted due to Environmental Limitations-(lack of equipment, weather restraints, etc.). 88-Not Attempted due to Medical Conditions or Safety Concerns. Sit to Stand (QC): 5 Gait Training Distance: 275' Walk 10 feet (QC): 5 Walk 50 ft with 2 Turns(QC): 5 Walk 150 ft (QC): 5 Gait Assistive Device: FWW slow, functional gait sequence with 2 short standing recovery periods due to SOA Assessment Patient remains up in recliner with needs met. Patient tolerated treatment well. PT Skilled Nursing Goals Infant And Toddler Teacher Goals PT Infant And Toddler Teacher Goals Time Frame: Sep 16, 2022 Roll Left & Right (QC): 6 Sit to Lying (QC): 6 Lying-Sitting on Side/Bed(QC): 6 Sit to Stand (QC): 6 Chair/Dwr-hf-Bcxzn Xfer(QC): 6 Toilet Transfer (QC): 6 Walk 10 feet (QC): 5 Walk 50ft with 2 Turns (QC): 5 Walk 150 ft (QC): 5 PT Plan Treatment/Plan Treatment Plan: Continue Plan of Care Treatment Plan: Education, Functional Activity Josh, Functional Strength, Gait, Safety, Therapeutic Exercise, Transfers Treatment Duration: Sep 16, 2022 Frequency: 6 times per week Estimated Hrs Per Day: .25 hour per day Patient and/or Family Agrees t: Yes Time Time In: 1020 Time Out: 1031 DATE: Sep 05, 2022 Total Billed Treatment Time: 11 Total Billed Treatment 1 visit FA 11 min TEGAN SAUL PT Sep 05, 2022 10:39
--- NOTE | 2022-09-05 11:59 | Progress Note ---
Subjective Subjective/Events-last exam Patient pleasantly demented. States that she is having some LLQ pain. Tolerated PO diet and is up in chair. BM yesterday that she states hurt to have. Review of Systems General: No Chills; Fatigue Pulmonary: No Dyspnea, No Cough Cardiovascular: No: Chest Pain Gastrointestinal: Abdominal Pain, Constipation; No: Nausea, Vomiting, Diarrhea Genitourinary: No Dysuria; Frequency Neurological: Weakness, Incoordination, Confusion Focused Exam Lactate Level 09/02/22 22:57: Lactic Acid Level 1.23 Objective Exam Last Set of Vital Signs Vital Signs Date Time Temp Pulse Resp B/P (MAP) Pulse Ox O2 Delivery O2 Flow Rate FiO2 09/05/22 10:09 94 Nasal Cannula 2.00 09/05/22 07:54 36.3 87 18 163/90 (114) 09/03/22 12:39 25 Capillary Refill : NONE I&O Intake and Output 09/05/22 00:00 Intake Total 2075 ml Output Total 600 ml Balance 1475 ml Intake Oral 1325 ml IV Total 750 ml Output Urine Total 600 ml # Voids 5 # Bowel Movements 1 General: Alert, No Acute Distress Lungs: Clear to Auscultation, Normal Air Movement Heart: Regular Rate, No Murmurs Abdomen: Normal Bowel Sounds, Soft, No Tenderness, No Masses Extremities: No Edema, No Tenderness/Swelling Neuro: Normal Speech Results/Procedures Lab Laboratory Tests 09/05/22 05:40: White Blood Count 4.7, Red Blood Count 2.83L, Hemoglobin 8.4L, Hematocrit 27L, Mean Corpuscular Volume 95, Mean Corpuscular Hemoglobin 30, Mean Corpuscular Hemoglobin Concent 31L, Red Cell Distribution Width 15.1H, Platelet Count 161, Mean Platelet Volume 10.9, Immature Granulocyte % (Auto) 1, Neutrophils (%) (Auto) 90H, Lymphocytes (%) (Auto) 5L, Monocytes (%) (Auto) 4, Eosinophils (%) (Auto) 0, Basophils (%) (Auto) 0, Neutrophils # (Auto) 4.3, Lymphocytes # (Auto) 0.2L, Monocytes # (Auto) 0.2, Eosinophils # (Auto) 0.0, Basophils # (Auto) 0.0, Immature Granulocyte # (Auto) 0.1, Sodium Level 140, Potassium Level 3.7, Chloride Level 102, Carbon Dioxide Level 26, Anion Gap 12, Blood Urea Nitrogen 39H, Creatinine 1.07, Estimat Glomerular Filtration Rate 52, BUN/Creatinine Ratio 36, Glucose Level 147H, Calcium Level 8.6, Corrected Calcium 9.0, Magnesium Level 2.2, Total Bilirubin 0.2, Aspartate Amino Transf (AST/SGOT) 24, Alanine Aminotransferase (ALT/SGPT) 17, Alkaline Phosphatase 69, Total Protein 6.4, Albumin 3.5 Microbiology 09/03/22 Blood Culture - Preliminary, Resulted No growth 09/03/22 MRSA Screen - Final, Complete MRSA not isolated 09/03/22 Urine Culture - Preliminary, Resulted Klebsiella pneumoniae Assessment/Plan Assessment/Plan (1) Acute respiratory failure with hypercapnia Status: Acute Assessment & Plan: 09/04: Admitted on bipap and been doing well on 2L NC, Continues on 2L NC, PT ordered 09/05: On home oxygen but still having episodes or tachypnea (2) UTI due to Klebsiella species Status: Acute Assessment & Plan: 09/05: storage solutions architect pending, push oral hydration (3) COPD exacerbation Status: Acute (4) Hypertension Status: Chronic Assessment & Plan: 09/04: Continue home meds Qualifiers: Qualified Codes: I10 - Essential (primary) hypertension (5) Hyperlipidemia Status: Chronic (6) Coronary artery disease without angina pectoris Status: Chronic Qualifiers: Qualified Codes: I25.10 - Atherosclerotic heart disease of [place] coronary artery without angina pectoris (7) Normocytic anemia Status: Chronic Assessment & Plan: 09/04: No signs of acute bleeding, will get iron panel 09/05: Anemia of chronic disease, normal iron panel (8) Chronic anticoagulation Status: Chronic MAC LINDSEY MD Sep 05, 2022 11:59
[2022-09-05] MEDS: MONTELUKAST 10 MG (SINGULAIR) TAB PO SCH (20:09)
[2022-09-05] MEDS: cefTRIAXone 1 GM/50 ML (PRE-MIX) IV SCH (20:10)
[2022-09-05] MEDS: AZITHROMYCIN 250 MG TAB (ZITHROMAX) PO SCH (20:10)
[2022-09-05] MEDS: MELATONIN 10 MG TABLET PO SCH (20:10)
[2022-09-06] VITALS (8 sets, daily range): BP systolic 162–197; BP diastolic 75–99
[2022-09-06] MEDS: methylPREDNISolone 125 MG (Solu-MEDROL) VIAL IVP SCH ×5 (00:17→23:45)
[2022-09-06] MEDS: RT-IPRATROPIUM (ATROVENT) 0.5MG/2.5ML AMP IH SCH ×3 (03:32→21:35)
[2022-09-06] MEDS: RT-ALBUTEROL SULF 2.5 MG/3 ML PRE-MIX VIAL INH SCH ×4 (03:34→21:35)
[2022-09-06 06:26] LABS: BASOPHILS % (AUTO) 0 % (0-10); EOSINOPHILS % (AUTO) 0 % (0-10); HEMATOCRIT 29 % (35-52); HEMOGLOBIN 8.8 g/dL (11.5-16.0); LYMPHOCYTES # (AUTO) 0.4 10^3/uL (1.0-4.0); LYMPHOCYTES % (AUTO) 7 % (12-44); MEAN CORPUSCULAR HEMOGLOBIN 30 pg (25-34); MEAN CORPUSCULAR HGB CONC 31 g/dL (32-36); MEAN CORPUSCULAR VOLUME 97 fL (80-99); MEAN PLATELET VOLUME 10.8 fL (9.0-12.2); MONOCYTES # (AUTO) 0.3 10^3/uL (0.0-1.0); MONOCYTES % (AUTO) 4 % (0-12); NEUTROPHILS # (AUTO) 5.5 10^3/uL (1.8-7.8); NEUTROPHILS % (AUTO) 87 % (42-75); PLATELET COUNT 204 10^3/uL (130-400); WHITE BLOOD COUNT 6.3 10^3/uL (4.3-11.0)
[2022-09-06 06:56] LABS: ALBUMIN 3.5 GM/DL (3.2-4.5); POTASSIUM 4.2 MMOL/L (3.6-5.0)
[2022-09-06 06:57] LABS: CALCIUM 8.3 MG/DL (8.5-10.1)
[2022-09-06 06:58] LABS: TOTAL PROTEIN 6.4 GM/DL (6.4-8.2)
[2022-09-06 07:00] LABS: BILIRUBIN,TOTAL 0.3 MG/DL (0.1-1.0)
[2022-09-06 07:02] LABS: CREATININE SERUM 0.94 MG/DL (0.60-1.30)
[2022-09-06 07:05] LABS: MAGNESIUM 2.2 MG/DL (1.6-2.4)
[2022-09-06] MEDS: amLODIPine 5 MG (NORVASC) TAB PO SCH (08:53)
[2022-09-06] MEDS: SERTRALINE 50 MG (ZOLOFT) TABLET PO SCH (08:53)
[2022-09-06] MEDS: DOCUSATE SODIUM 100 MG (COLACE) CAP PO SCH ×2 (08:53→20:22)
[2022-09-06] MEDS: LORATADINE (CLARITIN) 10 MG TAB PO SCH (08:53)
[2022-09-06] MEDS: APIXABAN 5 MG (ELIQUIS) TABLET PO SCH ×2 (08:53→20:22)
[2022-09-06] MEDS: SENNOSIDES 8.6 MG (SENOKOT) TAB PO SCH ×2 (08:53→20:22)
[2022-09-06] MEDS: CLOPIDOGREL 75 MG (PLAVIX) TABLET PO SCH (08:53)
[2022-09-06] MEDS: METOCLOPRAMIDE 10 MG (REGLAN) TAB PO SCH ×2 (08:53→20:22)
[2022-09-06] MEDS: lisINopril 40 MG (PRINIVIL) TABLET PO SCH (08:53)
[2022-09-06] MEDS: meTOproloL SUCCINATE 50 MG (TOPROL XL) TAB PO SCH (08:53)
--- NOTE | 2022-09-06 10:08 | Physical Therapy Daily Note ---
PT Daily Note-Current Subjective Pt. in bed agrees to Rx, Pt. c/o "Im not walking right" but no gross deviation noted by htis PRODUCT MARKETING EXECUTIVE. Pt. did c/o fatigue during gait but willing to walk. O2 sats monitored on o2 etc. Agrees to up in recliner after Rx Pain Location: No Pain Reported Section J - Health Conditions 1. Rarely or not at all 2. Occasionally 3. Frequently 4. Almost constantly 8. Unable to answer Pain Effect on Sleep: 1 Pain Interference with Therapy: 1 Pain Interference w/Day-to-Day: 1 Mental Status Patient Orientation: Normal For Age Attachments: Oxygen (2L) Transfers SCALE: Activities may be completed with or without assistive devices. 3-Zykstdahox-isvyegv completes the activity by him/herself with no assistance from a helper. 5-Set-up or Clean-up Assistance-helper sets up or cleans up; patient completes activity. [place] assists only prior to or following the activity. 4-Supervision or Touching Assistance-helper provides verbal cues and/or touching/steadying and/or contact guard assistance as patient completes act ivity. Assistance may be provided throughout the activity or intermittently. 3-Partial/Moderate Assistance-helper does LESS THAN HALF the effort. [place] lifts, holds or supports trunk or limbs, but provides less than half the effort. 2-Substantial/Maximal Assistance-helper does MORE THAN HALF the effort. [place] lifts or holds trunk or limbs and provides more than half the effort. 5-Acygbhvih-qbaqyb does ALL the effort. Patient does none of the effort to complete the activity. Or, the assistance of 2 or more helpers is required for the patient to complete the activity. If activity was not attempted, code reason: 7-Patient Refused. 9-Not Applicable-not attempted and the patient did not perform the activity before the current illness, exacerbation or injury. 10-Not Attempted due to Environmental Limitations-(lack of equipment, weather restraints, etc.). 88-Not Attempted due to Medical Conditions or Safety Concerns. Roll Left & Right (QC): 6 Lying to Sitting/Side of Bed(Q: 6 Sit to Stand (QC): 6 Chair/Xsf-jn-Maxma Xfer(QC): 6 Gait Training Does the Patient Walk?: Yes Walk 10 feet (QC): 4 Walk 50 ft with 2 Turns(QC): 4 Gait Persons Needed: 1 Gait Assistive Device: FWW Pt ambulated 100ft plus with CGA assist and assist O2, sats monitored at 95% with dyspnea noted with activity and increased heart rate , pt recovered with rest Exercises Seated Therapy Exercises: Ankle pumps, Sit to stand, Long arc quads, Hip flexion, Hip abd/add Seated Reps: 12 Treatments TRFs, LEex, gait, up in recliner after Rx with call salas at hand Assessment Current Status: Good Progress dyspnea with activity, O2 sats 95% but heart rate 120 plus and irratic PT Employment Legal Assistant Goals Assisted Goals PT Assisted Goals Time Frame: Sep 16, 2022 Roll Left & Right (QC): 6 Sit to Lying (QC): 6 Lying-Sitting on Side/Bed(QC): 6 Sit to Stand (QC): 6 Chair/Sgm-rj-Yrbpr Xfer(QC): 6 Toilet Transfer (QC): 6 Walk 10 feet (QC): 5 Walk 50ft with 2 Turns (QC): 5 Walk 150 ft (QC): 5 PT Plan Treatment/Plan Treatment Plan: Continue Plan of Care Treatment Plan: Education, Functional Activity Josh, Functional Strength, Gait, Safety, Therapeutic Exercise, Transfers Treatment Duration: Sep 16, 2022 Frequency: 6 times per week Estimated Hrs Per Day: .25 hour per day Patient and/or Family Agrees t: Yes Safety Risks/Education Patient Education: Gait Training, Transfer Techniques, Correct Positioning, Safety Issues Teaching Recipient: Patient Teaching Methods: Demonstration, Discussion Response to Teaching: Verbalize Understanding, Return Demonstration, Reinforcement Needed Time Time In: 925 Time Out: 855 DATE: Sep 06, 2022 Total Billed Treatment Time: 30 Total Billed Treatment 1,EX13m,GT12m TIA GODFREY PRODUCT MARKETING EXECUTIVE Sep 06, 2022 10:08
--- NOTE | 2022-09-06 10:30 | Occupational Ther Daily Note ---
OT Current Status-Daily Note Subjective UP in bed, completed breakfast Pain Numeric Pain Scale: 5-Moderate Pain Location: Left (side of body," no worse than yesterday") Mental Status/Objective Patient Orientation: Person Attachments: Oxygen ADL-Treatment Change out of socks following functional mobility in halls. declines use of commode stating had just finished with nursing Therapy Code Descriptions/Definitions Functional [place] Measure: 0=Not Assessed/NA 4=Minimal Assistance 1=Total Assistance 5=Supervision or Setup 2=Maximal Assistance 6=Modified [place] 3=Moderate Assistance 7=Complete IndependenceSCALE: Activities may be completed with or without assistive devices. 8-Wrfynoduos-opqwpun completes the activity by him/herself with no assistance from a helper. 5-Set-up or Clean-up Assistance-helper sets up or cleans up; patient completes activity. [place] assists only prior to or following the activity. 4-Supervision or Touching Assistance-helper provides verbal cues and/or touching/steadying and/or contact guard assistance as patient completes activity. Assistance may be provided throughout the activity or intermittently. 3-Partial/Moderate Assistance-helper does LESS THAN HALF the effort. [place] lifts, holds or supports trunk or limbs, but provides less than half the effort. 2-Substantial/Maximal Assistance-helper does MORE THAN HALF the effort. [place] lifts or holds trunk or limbs and provides more than half the effort. 6-Bxaboojna-pxuxnh does ALL the effort. Patient does none of the effort to complete the activity. Or, the assistance of 2 or more helpers is required for the patient to complete the activity. If activity was not attempted, code reason: 7-Patient Refused. 9-Not Applicable-not attempted and the patient did not perform the activity before the current illness, exacerbation or injury. 10-Not Attempted due to Environmental Limitations-(lack of equipment, weather restraints, etc.). 88-Not Attempted due to Medical Conditions or Safety Concerns. Eating (QC): 6 Oral Hygiene (QC): 5 Upper Body Dressing (QC): 4 (use of additional hospital gown as robe to ambulate in halls) Lower Body Dressing (QC): 4 On/Off Footwear: 3 (assistance over toes d/t nails snagging seam, LLE c/o decreased ROM and increased pain to hip with flexion 2 year old healed fractrure) Toileting Hygiene (QC): 7 Toilet Transfer (QC): 7 Other Treatment dyspnea with activity including ARM chair pushups x10, and ambulation in halls, O2 sats 95% but heart rate 120 plus and irratic, recovers quickly in sitting Education OT Patient Education: Energy conservation, Exercise program, Modified ADL techniques, Progress toward Goal/Update tx plan, Purpose of tx/functional activities, Reviewed precautions, Rehab process, Safety issues, Transfer techniques, Use of adapted equipment Teaching Recipient: Patient Teaching Methods: Demonstration, Discussion Response to Teaching: Verbalize Understanding, Return Demonstration, Reinforcement Needed OT Retirement Goals Retirement Goals Time Frame: Sep 16, 2022 Eating (QC): 6 Oral Hygiene (QC): 5 Toileting Hygiene (QC): 5 Shower/Bathe Self (QC): 4 Upper Body Dressing (QC): 5 Lower Body Dressing (QC): 5 On/Off Footwear (QC): 5 1=Demonstrate adherence to instructed precautions during ADL tasks. 2=Patient will verbalize/demonstrate understanding of assistive devices/modifications for ADL. 3=Patient will improve strength/tolerance for activity to enable patient to perform ADL's. OT Education/Plan Problem List/Assessment Assessment: Decreased Activ Tolerance, Decreased UE Strength, Impaired Coordination, Impaired Self-Care Skills Discharge Recommendations Plan/Recommendations: Continue POC Therapy Discharge Recommendati: Post Acute OT Treatment Plan/Plan of Care Treatment,Training & Education: Yes Patient would benefit from OT for education, treatment and training to promote independence in ADL's, mobility, safety and/or upper extremity function for ADL's. Plan of Care: ADL Retraining, Cognitive Retraining, Functional Mobility, Group Exercise/Act as Ind, UE Funct Exercise/Act Comment Patient remains in recliner w/ all needs met Treatment Duration: Sep 16, 2022 Frequency: 3 times per week (3-5 times per week) Estimated Hrs Per Day: .25 hour per day Agreement: Yes Rehab Potential: Guarded Time Start Time: 09:40 Stop Time: 09:57 DATE: Sep 06, 2022 Total Time Billed (hr/min): 17 Billed Treatment Time 1 visit FA 1 17 minutes GEOVANNI CHRISTENSEN OT Sep 06, 2022 10:30
--- NOTE | 2022-09-06 15:55 | Diagnostic Imaging Report ---
EXAMINATION: Abdomen 1 view HISTORY: Abdominal pain COMPARISON: None available. FINDINGS: There is a moderate amount of gas and stool throughout the colon. Nonobstructive bowel gas pattern. No radiopaque foreign body. The lung bases are clear. A left-sided hip arthroplasty is present. IMPRESSION: Moderate stool burden without other acute abnormality in the abdomen. Dictated by: Dictated on workstation # [id number]
--- NOTE | 2022-09-06 15:57 | Progress Note ---
Subjective Subjective/Events-last exam Patient states that she is still having some LLQ abd pain. No change with eating. She has not had a BM in the last 24hrs. Tolerating PO diet. Review of Systems General: [place] Pulmonary: No Dyspnea, No Cough Cardiovascular: No: Chest Pain, Palpitations, Edema Gastrointestinal: Abdominal Pain; No: Nausea, Vomiting, Diarrhea Neurological: Weakness, Incoordination Objective Exam Last Set of Vital Signs Vital Signs Date Time Temp Pulse Resp B/P (MAP) Pulse Ox O2 Delivery O2 Flow Rate FiO2 09/06/22 15:02 91 Nasal Cannula 2.00 09/06/22 11:37 36.7 79 18 179/75 (109) 09/06/22 06:58 28 Capillary Refill : NONE I&O Intake and Output 09/06/22 00:00 Intake Total 1110 ml Output Total 300 ml Balance 810 ml Intake Oral 1110 ml Output Urine Total 300 ml # Voids 4 General: Alert, No Acute Distress Lungs: Clear to Auscultation, Normal Air Movement Heart: Regular Rate, No Murmurs Abdomen: Normal Bowel Sounds, Soft, Other (Mild LLQ ttp, no rebound or guarding) Extremities: No Edema, No Tenderness/Swelling Neuro: Normal Speech Psych/Mental Status: Mental Status NL, Mood NL Results/Procedures Lab Laboratory Tests 09/06/22 06:07: White Blood Count 6.3, Red Blood Count 2.96L, Hemoglobin 8.8L, Hematocrit 29L, Mean Corpuscular Volume 97, Mean Corpuscular Hemoglobin 30, Mean Corpuscular Hemoglobin Concent 31L, Red Cell Distribution Width 15.0H, Platelet Count 204, Mean Platelet Volume 10.8, Immature Granulocyte % (Auto) 3, Neutrophils (%) (Auto) 87H, Lymphocytes (%) (Auto) 7L, Monocytes (%) (Auto) 4, Eosinophils (%) (Auto) 0, Basophils (%) (Auto) 0, Neutrophils # (Auto) 5.5, Lymphocytes # (Auto) 0.4L, Monocytes # (Auto) 0.3, Eosinophils # (Auto) 0.0, Basophils # (Auto) 0.0, Immature Granulocyte # (Auto) 0.2H, Sodium Level 140, Potassium Level 4.2, Chloride Level 102, Carbon Dioxide Level 25, Anion Gap 13, Blood Urea Nitrogen 45H, Creatinine 0.94, Estimat Glomerular Filtration Rate 60, BUN/Creatinine Ratio 48, Glucose Level 134H, Calcium Level 8.3L, Corrected Calcium 8.7, Magnesium Level 2.2, Total Bilirubin 0.3, Aspartate Amino Transf (AST/SGOT) 24, Alanine Aminotransferase (ALT/SGPT) 21, Alkaline Phosphatase 66, Total Protein 6.4, Albumin 3.5 Microbiology 09/03/22 Blood Culture - Preliminary, Resulted No growth 09/03/22 MRSA Screen - Final, Complete MRSA not isolated 09/03/22 Urine Culture - Final, Complete Klebsiella pneumoniae Assessment/Plan Assessment/Plan (1) Acute respiratory failure with hypercapnia Status: Acute Assessment & Plan: 09/04: Admitted on bipap and been doing well on 2L NC, Continues on 2L NC, PT ordered 09/05: On home oxygen but still having episodes or tachypnea 09/06: At baseline (2) UTI due to Klebsiella species Status: Acute Assessment & Plan: 09/05: pediatric neurologist pending, push oral hydration 09/06: 2 more days of antibiotics (3) COPD exacerbation Status: Acute (4) Hypertension Status: Chronic Assessment & Plan: 09/04: Continue home meds Qualifiers: Qualified Codes: I10 - Essential (primary) hypertension (5) Hyperlipidemia Status: Chronic (6) Coronary artery disease without angina pectoris Status: Chronic Qualifiers: Qualified Codes: I25.10 - Atherosclerotic heart disease of [place] coronary artery without angina pectoris (7) Normocytic anemia Status: Chronic Assessment & Plan: 09/04: No signs of acute bleeding, will get iron panel 09/05: Anemia of chronic disease, normal iron panel (8) Chronic anticoagulation Status: Chronic (9) Left lower quadrant abdominal pain Status: Acute Assessment & Plan: 09/06: KUB today, likely 2/ to constipation MAC LINDSEY MD Sep 06, 2022 15:56
[2022-09-06] MEDS: MELATONIN 10 MG TABLET PO SCH (20:22)
[2022-09-06] MEDS: cefTRIAXone 1 GM/50 ML (PRE-MIX) IV SCH (20:22)
[2022-09-06] MEDS: MONTELUKAST 10 MG (SINGULAIR) TAB PO SCH (20:22)
[2022-09-06] MEDS: AZITHROMYCIN 250 MG TAB (ZITHROMAX) PO SCH (20:22)
[2022-09-07] MEDS: RT-ALBUTEROL SULF 2.5 MG/3 ML PRE-MIX VIAL INH SCH ×2 (02:48→07:37)
[2022-09-07] MEDS: RT-IPRATROPIUM (ATROVENT) 0.5MG/2.5ML AMP IH SCH ×2 (02:48→07:38)
[2022-09-07 04:00] VITALS: BP 163/75
[2022-09-07 05:34] LABS: BASOPHILS % (AUTO) 0 % (0-10); EOSINOPHILS % (AUTO) 0 % (0-10); HEMATOCRIT 27 % (35-52); HEMOGLOBIN 8.5 g/dL (11.5-16.0); LYMPHOCYTES # (AUTO) 0.4 10^3/uL (1.0-4.0); LYMPHOCYTES % (AUTO) 5 % (12-44); MEAN CORPUSCULAR HEMOGLOBIN 30 pg (25-34); MEAN CORPUSCULAR HGB CONC 31 g/dL (32-36); MEAN CORPUSCULAR VOLUME 96 fL (80-99); MEAN PLATELET VOLUME 10.6 fL (9.0-12.2); MONOCYTES # (AUTO) 0.3 10^3/uL (0.0-1.0); MONOCYTES % (AUTO) 5 % (0-12); NEUTROPHILS # (AUTO) 5.9 10^3/uL (1.8-7.8); NEUTROPHILS % (AUTO) 87 % (42-75); PLATELET COUNT 223 10^3/uL (130-400); WHITE BLOOD COUNT 6.9 10^3/uL (4.3-11.0)
[2022-09-07 05:44] LABS: ALBUMIN 3.4 GM/DL (3.2-4.5); POTASSIUM 4.1 MMOL/L (3.6-5.0)
[2022-09-07 05:45] LABS: CALCIUM 8.3 MG/DL (8.5-10.1)
[2022-09-07 05:48] LABS: BILIRUBIN,TOTAL 0.3 MG/DL (0.1-1.0)
[2022-09-07 05:50] LABS: CREATININE SERUM 1.02 MG/DL (0.60-1.30)
[2022-09-07 05:53] LABS: MAGNESIUM 2.2 MG/DL (1.6-2.4)
[2022-09-07] MEDS: methylPREDNISolone 125 MG (Solu-MEDROL) VIAL IVP SCH ×2 (06:01→11:31)
[2022-09-07 07:21] VITALS: BP 202/91
[2022-09-07] MEDS: SENNOSIDES 8.6 MG (SENOKOT) TAB PO SCH (07:55)
[2022-09-07] MEDS: CLOPIDOGREL 75 MG (PLAVIX) TABLET PO SCH (07:55)
[2022-09-07] MEDS: meTOproloL SUCCINATE 50 MG (TOPROL XL) TAB PO SCH (07:55)
[2022-09-07] MEDS: SERTRALINE 50 MG (ZOLOFT) TABLET PO SCH (07:55)
[2022-09-07] MEDS: LORATADINE (CLARITIN) 10 MG TAB PO SCH (07:55)
[2022-09-07] MEDS: lisINopril 40 MG (PRINIVIL) TABLET PO SCH (07:55)
[2022-09-07] MEDS: APIXABAN 5 MG (ELIQUIS) TABLET PO SCH (07:55)
[2022-09-07] MEDS: DOCUSATE SODIUM 100 MG (COLACE) CAP PO SCH (07:55)
[2022-09-07] MEDS: METOCLOPRAMIDE 10 MG (REGLAN) TAB PO SCH (08:01)
[2022-09-07] MEDS ORDERED: amLODIPine 10 MG (NORVASC) TAB PO SCH (09:00)
[2022-09-07] MEDS ORDERED: amLODIPine 5 MG (NORVASC) TAB PO SCH (09:00)
--- NOTE | 2022-09-07 09:55 | Occupational Ther Daily Note ---
OT Current Status-Daily Note Subjective Patient up in chair completed breakfast Mental Status/Objective Patient Orientation: Person, Place, Situation (Wants to know she can go home and leave hospital, referred her to physician) Attachments: IV ADL-Treatment Performed sponge bathing, door closed and sponge bath interrupted w/ housekeeping, OT closed door follow house keeper exit, patient remained safe in chair with bathing supplies set up and shower shampoo cap on Therapy Code Descriptions/Definitions Functional [place] Measure: 0=Not Assessed/NA 4=Minimal Assistance 1=Total Assistance 5=Supervision or Setup 2=Maximal Assistance 6=Modified [place] 3=Moderate Assistance 7=Complete IndependenceSCALE: Activities may be completed with or without assistive devices. 9-Arihlbaiql-cwyqyin completes the activity by him/herself with no assistance from a helper. 5-Set-up or Clean-up Assistance-helper sets up or cleans up; patient completes activity. [place] assists only prior to or following the activity. 4-Supervision or Touching Assistance-helper provides verbal cues and/or touching/steadying and/or contact guard assistance as patient completes activity. Assistance may be provided throughout the activity or intermittently. 3-Partial/Moderate Assistance-helper does LESS THAN HALF the effort. [place] lifts, holds or supports trunk or limbs, but provides less than half the effort. 2-Substantial/Maximal Assistance-helper does MORE THAN HALF the effort. [place] lifts or holds trunk or limbs and provides more than half the effort. 7-Ygmwmdkov-xmgkkh does ALL the effort. Patient does none of the effort to complete the activity. Or, the assistance of 2 or more helpers is required for the patient to complete the activity. If activity was not attempted, code reason: 7-Patient Refused. 9-Not Applicable-not attempted and the patient did not perform the activity before the current illness, exacerbation or injury. 10-Not Attempted due to Environmental Limitations-(lack of equipment, weather restraints, etc.). 88-Not Attempted due to Medical Conditions or Safety Concerns. Eating (QC): 6 Oral Hygiene (QC): 5 Bathing Location: L Arm, R Arm, L Upper Leg, R Upper Leg, Chest, Abdomen (Remaining areas peformed by OT) Shower/Bathe Self (QC): 4 Upper Body Dressing (QC): 4 (d/t IV lines) Lower Body Dressing (QC): 3 (Required assistance for B LE foot insertion, sit/stand twice d/t unsteady balance) On/Off Footwear: 2 Toileting Hygiene (QC): 3 Toilet Transfer (QC): 4 Education OT Patient Education: Correct positioning, Energy conservation, Modified ADL techniques, Progress toward Goal/Update tx plan, Purpose of tx/functional activities, Reviewed precautions, Rehab process, Safety issues, Transfer techniques, Use of adapted equipment Teaching Recipient: Patient Teaching Methods: Demonstration, Discussion Response to Teaching: Verbalize Understanding, Return Demonstration, Reinforcement Needed OT Plastic Outfitter Goals Plastic Outfitter Goals Time Frame: Sep 16, 2022 Eating (QC): 6 Oral Hygiene (QC): 5 Toileting Hygiene (QC): 5 Shower/Bathe Self (QC): 4 Upper Body Dressing (QC): 5 Lower Body Dressing (QC): 5 On/Off Footwear (QC): 5 1=Demonstrate adherence to instructed precautions during ADL tasks. 2=Patient will verbalize/demonstrate understanding of assistive devices/modifications for ADL. 3=Patient will improve strength/tolerance for activity to enable patient to perform ADL's. OT Education/Plan Problem List/Assessment Assessment: Decreased Activ Tolerance, Decreased Safety Aware, Impaired Cognition, Impaired Coordination, Impaired Funct Balance, Impaired Self-Care Skills Discharge Recommendations Plan/Recommendations: Continue POC Therapy Discharge Recommendati: Post Acute OT Treatment Plan/Plan of Care Treatment,Training & Education: Yes Patient would benefit from OT for education, treatment and training to promote independence in ADL's, mobility, safety and/or upper extremity function for ADL's. Plan of Care: ADL Retraining, Cognitive Retraining, Functional Mobility, Group Exercise/Act as Ind, UE Funct Exercise/Act Treatment Duration: Sep 16, 2022 Frequency: 3 times per week (3-5 times per week) Estimated Hrs Per Day: .25 hour per day Agreement: Yes Rehab Potential: Guarded remains up in chair w/ clean brief, gown and groomed hair drinking coffee, all needs met Time Start Time: 09:28 Stop Time: 09:57 DATE: Sep 07, 2022 Total Time Billed (hr/min): 31 Billed Treatment Time 1 visit ADLS 2 31 min GEOVANNI CHRISTENSEN OT Sep 07, 2022 09:55
--- NOTE | 2022-09-07 10:27 | Physical Therapy Daily Note ---
PT Daily Note-Current Subjective Patient agrees to PT. Pain Section J - Health Conditions 1. Rarely or not at all 2. Occasionally 3. Frequently 4. Almost constantly 8. Unable to answer Pain Effect on Sleep: 1 Pain Interference with Therapy: 1 Pain Interference w/Day-to-Day: 1 Mental Status Patient Orientation: Person, Time, Situation Attachments: Oxygen Transfers SCALE: Activities may be completed with or without assistive devices. 7-Goscsdfkcs-qrhccqu completes the activity by him/herself with no assistance from a helper. 5-Set-up or Clean-up Assistance-helper sets up or cleans up; patient completes activity. [place] assists only prior to or following the activity. 4-Supervision or Touching Assistance-helper provides verbal cues and/or touching/steadying and/or contact guard assistance as patient completes activity. Assistance may be provided throughout the activity or intermittently. 3-Partial/Moderate Assistance-helper does LESS THAN HALF the effort. [place] lifts, holds or supports trunk or limbs, but provides less than half the effort. 2-Substantial/Maximal Assistance-helper does MORE THAN HALF the effort. [place] lifts or holds trunk or limbs and provides more than half the effort. 3-Xbleyqrvz-jxiism does ALL the effort. Patient does none of the effort to complete the activity. Or, the assistance of 2 or more helpers is required for the patient to complete the activity. If activity was not attempted, code reason: 7-Patient Refused. 9-Not Applicable-not attempted and the patient did not perform the activity before the current illness, exacerbation or injury. 10-Not Attempted due to Environmental Limitations-(lack of equipment, weather restraints, etc.). 88-Not Attempted due to Medical Conditions or Safety Concerns. Sit to Stand (QC): 4 Toilet Transfer (QC): 4 Gait Training Distance: 275' Walk 10 feet (QC): 4 Walk 50 ft with 2 Turns(QC): 4 Walk 150 ft (QC): 4 Gait Assistive Device: FWW multiple standing recovery periods due to SOA with activity on 2L O2 NC Exercises Seated Therapy Exercises: Ankle pumps, Long arc quads, Hip flexion Assessment Patient requires time to complete all functional tasks due to dyspnea with activity. SAO2 remains >90% with activity. PT to continue to increase activity as tolerated by patient. PT Wellness Assistant Goals Wellness Assistant Goals PT Halfway Goals Time Frame: Sep 16, 2022 Roll Left & Right (QC): 6 Sit to Lying (QC): 6 Lying-Sitting on Side/Bed(QC): 6 Sit to Stand (QC): 6 Chair/Xhd-eq-Qfebk Xfer(QC): 6 Toilet Transfer (QC): 6 Walk 10 feet (QC): 5 Walk 50ft with 2 Turns (QC): 5 Walk 150 ft (QC): 5 PT Plan Treatment/Plan Treatment Plan: Continue Plan of Care Treatment Plan: Education, Functional Activity Josh, Functional Strength, Gait, Safety, Therapeutic Exercise, Transfers Treatment Duration: Sep 16, 2022 Frequency: 6 times per week Estimated Hrs Per Day: .25 hour per day Patient and/or Family Agrees t: Yes Time Time In: 810 Time Out: 833 DATE: Sep 07, 2022 Total Billed Treatment Time: 23 Total Billed Treatment 1 visit EX 8 min FA 15 min TEGAN SAUL PT Sep 07, 2022 10:27
[2022-09-07 11:23] VITALS: BP 170/77
[2022-09-07] MEDS ORDERED: AMLO-251 PO (12:01)
[2022-09-07] MEDS ORDERED: CEFD300C3 PO (12:01)
--- NOTE | 2022-09-07 12:03 | Discharge Summary ---
Discharge Summary Instructions for Patient Via [facility], Assessment/Instructions Acute Respiratory Failure with hypoxia UTI Klebsiella AECOPD HTN HLD CAD Normocytic anemia Physician to follow Patient: Ru Discharge Diet for Home: Cardiac Diet Hospital Course Date of Admission: Sep 03, 2022 at 00:15 Admission Diagnosis : Family Physician/Provider: Jae Vences DO Date of Discharge: 09/07/22 Discharge Diagnosis: Acute Respiratory Failure UTI AECOPD HTN HLD CAD Normocyctic Anemia Hospital Course: [ ] Labs and Pending Lab Test: Laboratory Tests 09/07/22 05:12: White Blood Count 6.9, Red Blood Count 2.84L, Hemoglobin 8.5L, Hematocrit 27L, Mean Corpuscular Volume 96, Mean Corpuscular Hemoglobin 30, Mean Corpuscular Hemoglobin Concent 31L, Red Cell Distribution Width 15.5H, Platelet Count 223, Mean Platelet Volume 10.6, Immature Granulocyte % (Auto) 3, Neutrophils (%) (Auto) 87H, Lymphocytes (%) (Auto) 5L, Monocytes (%) (Auto) 5, Eosinophils (%) (Auto) 0, Basophils (%) (Auto) 0, Neutrophils # (Auto) 5.9, Lymphocytes # (Auto) 0.4L, Monocytes # (Auto) 0.3, Eosinophils # (Auto) 0.0, Basophils # (Auto) 0.0, Immature Granulocyte # (Auto) 0.2H, Sodium Level 138, Potassium Level 4.1, Chloride Level 101, Carbon Dioxide Level 24, Anion Gap 13, Blood Urea Nitrogen 44H, Creatinine 1.02, Estimat Glomerular Filtration Rate 55, BUN/Creatinine Ratio 43, Glucose Level 142H, Calcium Level 8.3L, Corrected Calcium 8.8, Magnesium Level 2.2, Total Bilirubin 0.3, Aspartate Amino Transf (AST/SGOT) 21, Alanine Aminotransferase (ALT/SGPT) 23, Alkaline Phosphatase 61, Total Protein 6.0L, Albumin 3.4 Microbiology 09/03/22 Blood Culture - Preliminary, Resulted No growth 09/03/22 MRSA Screen - Final, Complete MRSA not isolated 09/03/22 Urine Culture - Final, Complete Klebsiella pneumoniae Home Meds Active Reported Stool Softener (Docusate Sodium) 100 Mg Capsule 100 Mg PO DAILY PRN Amlodipine Besylate 5 Mg Tablet 5 Mg PO DAILY Eliquis (Apixaban) 5 Mg Tablet 5 Mg PO BID Clopidogrel (Clopidogrel Bisulfate) 75 Mg Tablet 75 Mg PO DAILY Sertraline HCl 25 Mg Tablet 25 Mg PO DAILY Diclofenac Sodium 1 % Gel..gram. 1 Applic TOP QID PRN APPLY TO BACK Melatonin 10 Mg Tablet 10 Mg PO HS Montelukast Sodium 10 Mg Tablet 10 Mg PO HS Tylenol Extra Strength (Acetaminophen) 500 Mg Tablet 500-1,000 Mg PO Q8H PRN Metoprolol Succinate 50 Mg Tab.er.24h 50 Mg PO DAILY Lisinopril 40 Mg Tablet 40 Mg PO DAILY Atorvastatin Calcium 20 Mg Tablet 20 Mg PO DAILY Metoclopramide HCl 10 Mg Tablet 10 Mg PO BID Trazodone HCl 100 Mg Tablet 100 Mg PO HS Cetirizine HCl 10 Mg Tablet 10 Mg PO DAILY Patient Allergies: Coded Allergies: cortisone (Verified Allergy, Unknown, 01/30/07) diphenhydramine (Verified Allergy, Unknown, 01/30/07) penicillin G (Verified Allergy, Unknown, 07/12/21) The patient is unaware that she has a penicillin allergy. She does not remember ever taking it and if she did what the reaction was. It has not been recently. Height (Feet): 5 Height (Inches): 4.00 Weight (Pounds): 188 Weight (Ounces): 0.0 New Medications: Cefdinir (Cefdinir) 300 Mg Capsule 300 MG PO BID, #6 CAP Amlodipine Besylate (Amlodipine Besylate) 10 Mg Tablet 10 MG PO DAILY, #30 TAB Continued Medications: Acetaminophen (Tylenol Extra Strength) 500 Mg Tablet 500-1000 MG PO Q8H PRN for PAIN-MILD (1-4), TAB Apixaban (Eliquis) 5 Mg Tablet 5 MG PO BID Atorvastatin Calcium (Atorvastatin Calcium) 20 Mg Tablet 20 MG PO DAILY, TAB Cetirizine HCl (Cetirizine HCl) 10 Mg Tablet 10 MG PO DAILY, TAB Clopidogrel Bisulfate (Clopidogrel) 75 Mg Tablet 75 MG PO DAILY Diclofenac Sodium (Diclofenac Sodium) 1 % Gel..gram. 1 APPLIC TOP QID PRN for PAIN-BREAKTHROUGH, EA APPLY TO BACK Docusate Sodium (Stool Softener) 100 Mg Capsule 100 MG PO DAILY PRN for CONSTIPATION-1ST LINE, CAP Lisinopril (Lisinopril) 40 Mg Tablet 40 MG PO DAILY, TAB Melatonin (Melatonin) 10 Mg Tablet 10 MG PO HS, TAB Metoclopramide HCl (Metoclopramide HCl) 10 Mg Tablet 10 MG PO BID, TAB Metoprolol Succinate (Metoprolol Succinate) 50 Mg Tab.er.24h 50 MG PO DAILY, TAB Montelukast Sodium (Montelukast Sodium) 10 Mg Tablet 10 MG PO HS, TAB Sertraline HCl (Sertraline HCl) 25 Mg Tablet 25 MG PO DAILY Trazodone HCl (Trazodone HCl) 100 Mg Tablet 100 MG PO HS, TAB Discontinued Medications: Amlodipine Besylate (Amlodipine Besylate) 5 Mg Tablet 5 MG PO DAILY, TAB Home Health Need/Face to Face Date of Face to Face: Sep 07, 2022 Clinical Findings: Muscle weakness, Shortness of breath, Unsteady gait I have seen Pt [id number]: Yes Discharged To: Home Diagnosis/Conditions: See Above Patient is Homebound due to: Maria Elena fall risk due to instabilty, Shortness of breath/distress Homebound Status Due to the above stated illness, injury or surgical procedure (medical condition or diagnosis) and associated clinical findings, the patient is homebound because of his/her inability to leave home except with aid of a supportive device and/or person AND leaving the home requires a considerable and taxing effort or is medically contraindicated. Pt req the following assistanc: [facility] Nursing Orders Home Health Services Order: Nursing Services, Physical Therapy-Evaluate & Treat Home Health Infusion Therapy Line Start Date: Sep 02, 2022 Therapy Orders Therapy Orders: Physical Therapy, PT to assess for OT Therapy Specific Orders: Gait training, Increase strength/endurance [facility] that this patient is under my care and that I, a nurse practitioner or a physician; a hygiene assistant working with me, had a face to face encounter that - meets the physician face to face encounter requirements with this patient as dated. Discharge Physical Exam General: Alert, No Acute Distress Lungs: Clear to Auscultation, Other (mild increased work of breathing with activity) Heart: Regular Rate, No Murmurs Abdomen: Normal Bowel Sounds, Soft, No Tenderness, No Masses Extremities: No Edema, No Tenderness/Swelling Neuro: Normal Speech MAC LINDSEY MD Sep 07, 2022 11:59
[2022-09-07 14:11] VITALS: BP 170/77
== END 2022-09-07 14:14 | disposition home health service (06) | DRG 189 ==
LOC: EDUNIT# 22:18 → ER 22:19 → ICU 09-03 00:15 → 4TH 09-03 13:20
PROVIDERS: ADMIT Internal Medicine; ATTEND Family Medicine
PROC: 5A09357 Assistance with Respiratory Ventilation, Less than 24 Consecutive Hours, Continuous Positive Airway Pressure (ICD-10-PCS; principal; 2022-09-03)
DX: J96.21 Acute and chronic respiratory failure with hypoxia (principal); J44.1 Chronic obstructive pulmonary disease with (acute) exacerbation; F05 Delirium due to known physiological condition; N39.0 Urinary tract infection, site not specified; J96.22 Acute and chronic respiratory failure with hypercapnia; F03.90 Unspecified dementia, unspecified severity, without behavioral disturbance, psychotic disturbance, mood disturbance, and anxiety; I11.0 Hypertensive heart disease with heart failure; I50.9 Heart failure, unspecified; I25.10 Atherosclerotic heart disease of native coronary artery without angina pectoris; Z20.822 Contact with and (suspected) exposure to COVID-19; D64.9 Anemia, unspecified; K59.00 Constipation, unspecified; R26.81 Unsteadiness on feet; B96.1 Klebsiella pneumoniae [K. pneumoniae] as the cause of diseases classified elsewhere; K21.9 Gastro-esophageal reflux disease without esophagitis; E78.00 Pure hypercholesterolemia, unspecified; H91.90 Unspecified hearing loss, unspecified ear; M19.91 Primary osteoarthritis, unspecified site; Z91.81 History of falling; Z96.642 Presence of left artificial hip joint; Z86.16 Personal history of COVID-19; Z99.81 Dependence on supplemental oxygen; Z95.820 Peripheral vascular angioplasty status with implants and grafts; Z87.891 Personal history of nicotine dependence; Z82.5 Family history of asthma and other chronic lower respiratory diseases; Z79.01 Long term (current) use of anticoagulants; Z79.02 Long term (current) use of antithrombotics/antiplatelets; Z79.899 Other long term (current) drug therapy; Z88.0 Allergy status to penicillin; Z88.8 Allergy status to other drugs, medicaments and biological substances
CPT/HCPCS: 36415; 36600; 51702; 71045; 74018; 80053; 81000; 82550; 82553; 82728; 82805; 83540; 83550; 83605; 83735; 83874; 83880; 84484; 85007; 85025; 85027; 85379; 85610; 85652; 85730; 86141; 87040; 87077; 87081; 87088; 87186; 87636; 93005; 93041; 94640; 94660; 94664; 94760

== ENCOUNTER 2022-12-25 05:57 | Emergency (ER) | payer MEDICARE, MEDICAID ==
[~2022-12-25 05:57] MED LIST changes: +AMLO-251 PO; +SENN-271 PO; -SENN1TAB76 PO
[2022-12-25 06:26] LABS: BASOPHILS % (AUTO) 1 % (0-10); MEAN CORPUSCULAR HEMOGLOBIN 29 pg (25-34); MEAN PLATELET VOLUME 11.1 fL (9.0-12.2)
[2022-12-25 06:28] LABS: EOSINOPHILS # (AUTO) 0.1 10^3/uL (0.0-0.3); EOSINOPHILS % (AUTO) 3 % (0-10); HEMATOCRIT 32 % (35-52); HEMOGLOBIN 9.5 g/dL (11.5-16.0); LYMPHOCYTES # (AUTO) 1.3 10^3/uL (1.0-4.0); LYMPHOCYTES % (AUTO) 33 % (12-44); MEAN CORPUSCULAR HGB CONC 30 g/dL (32-36); MEAN CORPUSCULAR VOLUME 97 fL (80-99); MONOCYTES # (AUTO) 0.3 10^3/uL (0.0-1.0); MONOCYTES % (AUTO) 9 % (0-12); NEUTROPHILS # (AUTO) 2.1 10^3/uL (1.8-7.8); NEUTROPHILS % (AUTO) 54 % (42-75); PLATELET COUNT 126 10^3/uL (130-400); WHITE BLOOD COUNT 3.9 10^3/uL (4.3-11.0)
[2022-12-25 06:30] LABS: ALBUMIN 3.7 GM/DL (3.2-4.5); POTASSIUM 4.5 MMOL/L (3.6-5.0)
[2022-12-25 06:31] LABS: CALCIUM 9.2 MG/DL (8.5-10.1)
[2022-12-25 06:32] LABS: TOTAL PROTEIN 6.7 GM/DL (6.4-8.2)
[2022-12-25 06:34] LABS: BILIRUBIN,TOTAL 0.3 MG/DL (0.1-1.0)
[2022-12-25 06:36] LABS: CREATININE SERUM 0.98 MG/DL (0.60-1.30)
--- NOTE | 2022-12-25 06:40 | ED General ---
General Chief Complaint: Respiratory Problems Stated Complaint: PNEUMONIA,SOB Nursing Triage Note: PATIENT BROUGHT BY [facility] WITH COMPLAINT OF COUGH/SOB X 5 DAYS. PATIENT SEEN AT [facility] WALKING, UNOFFICIAL DX OF PNEUMONIA. PATIENT VERBALIZED COVID NEGATIVE AT CLINIC. Source of Information: Patient, EMS History of Present Illness Date Seen by Provider: Dec 25, 2022 Time Seen by Provider: 06:25 Initial Comments This 82-year-old woman presents to the emergency room via [facility] with complaints of increased cough and shortness of breath. Nursing triage note states worsening symptoms x5 days but patient states that just started this morning. She reportedly was seen at the [facility] clinic and diagnosed with pneumonia. She reports history of COVID-19 infection that was mild in nature about a month ago. Patient lives at home with her daughter. She has history of COPD and uses oxygen at 2 L/min at baseline. She also has history of CHF and is noted to take Eliquis. Review of her medication filling record notes no recent antibiotic prescriptions filled. She denies fever, vomiting, diarrhea, or other symptoms of acute infectious illness. Her cough is productive. She is receiving a nebulizer treatment by EMS on arrival which she states is helpful. Allergies and Home Medications Allergies Coded Allergies: cortisone (Verified Allergy, Unknown, 01/30/07) diphenhydramine (Verified Allergy, Unknown, 01/30/07) penicillin G (Verified Allergy, Unknown, 07/12/21) The patient is unaware that she has a penicillin allergy. She does not remember ever taking it and if she did what the reaction was. It has not been recently. Patient Home Medication List Home Medication List Reviewed: Yes Acetaminophen (Tylenol Extra Strength) 500 Mg Tablet, 500-1,000 MG PO Q8H PRN for PAIN-MILD (1-4), (Reported) Entered as Reported by: ELZA AGUILAR on 10/11/21 1542 Amlodipine Besylate (Amlodipine Besylate) 10 Mg Tablet, 10 MG PO DAILY Prescribed by: MAC LINDSEY on 09/07/22 1201 Apixaban (Eliquis) 5 Mg Tablet, 5 MG PO BID, (Reported) Entered as Reported by: LILA DOVER on 03/20/22 0940 Atorvastatin Calcium (Atorvastatin Calcium) 20 Mg Tablet, 20 MG PO DAILY, (Reported) Entered as Reported by: ELZA AGUILAR on 10/11/21 154 Cefdinir (Cefdinir) 300 Mg Capsule, 300 MG PO BID Prescribed by: MAC LINDSEY on 09/07/22 1201 Cetirizine HCl (Cetirizine HCl) 10 Mg Tablet, 10 MG PO DAILY, (Reported) Entered as Reported by: ELZA AGUILAR on 10/11/21 154 Clopidogrel Bisulfate (Clopidogrel) 75 Mg Tablet, 75 MG PO DAILY, (Reported) Entered as Reported by: LILA DOVER on 03/20/22 0939 Diclofenac Sodium (Diclofenac Sodium) 1 % Gel..gram., 1 APPLIC TOP QID PRN for PAIN-BREAKTHROUGH, (Reported) Entered as Reported by: ELZA AGUILAR on 11/09/21 111 Docusate Sodium (Stool Softener) 100 Mg Capsule, 100 MG PO DAILY PRN for CONSTIPATION-1ST LINE, (Reported) Entered as Reported by: LILA DOVER on 03/20/22 0942 Lisinopril (Lisinopril) 40 Mg Tablet, 40 MG PO DAILY, (Reported) Entered as Reported by: ELZA AGUILAR on 10/11/21 154 Melatonin (Melatonin) 10 Mg Tablet, 10 MG PO HS, (Reported) Entered as Reported by: ELZA AGUILAR on 11/09/21 111 Metoclopramide HCl (Metoclopramide HCl) 10 Mg Tablet, 10 MG PO BID, (Reported) Entered as Reported by: ELZA AGUILAR on 10/11/21 154 Metoprolol Succinate (Metoprolol Succinate) 50 Mg Tab.er.24h, 50 MG PO DAILY, (R eported) Entered as Reported by: ELZA AGUILAR on 10/11/21 154 Montelukast Sodium (Montelukast Sodium) 10 Mg Tablet, 10 MG PO HS, (Reported) Entered as Reported by: ELZA AGUILAR on 10/11/21 154 Sertraline HCl (Sertraline HCl) 25 Mg Tablet, 25 MG PO DAILY, (Reported) Entered as Reported by: LILA DOVER on 03/20/22 0939 Trazodone HCl (Trazodone HCl) 100 Mg Tablet, 100 MG PO HS, (Reported) Entered as Reported by: ELZA AGUILAR on 10/11/21 154 Review of Systems Review of Systems Constitutional: no symptoms reported EENTM: no symptoms reported Respiratory: see HPI Cardiovascular: no symptoms reported Gastrointestinal: no symptoms reported Genitourinary: no symptoms reported Musculoskeletal: no symptoms reported Skin: no symptoms reported Psychiatric/Neurological: No Symptoms Reported Hematologic/Lymphatic: No Symptoms Reported Past Vykliwu-Aaxtgf-Xxhugr Hx Patient Social History Tobacco Use?: No Smoking Status: Former Smoker Alcohol Use?: No Immunizations Up To Date Tetanus Booster (TDap): Less than 5yrs PED Vaccines UTD: Yes Influenza Vaccine Up-to-Date: Yes; Up-to-Date First/Initial COVID19 Vaccinat: RECEIVED, UNK WHEN Second COVID19 Vaccination Taurus: RECEIVED, UNK WHEN Third COVID19 Vaccination Date: RECEIVED, UNK WHEN Seasonal Allergies Seasonal Allergies: Yes Past Medical History Surgery/Hospitalization HX: htn, gerd, high cholesterol, asthma, CHF, COPD, STENT IN RT NECK, LT HIP Surgeries: Yes (RIGHT BREAST BIOPSY; ROTATOR CUFF; LEFT HIP 06/2021) Section, Gallbladder, Hysterectomy, Oophorectomy, Orthopedic, Tonsillectomy Respiratory: Yes (COVID-19 12/2020-NO HOSPITALIZATION OR TREATMENT) Pneumonia, COPD (O2 by nasal cannula at 2 L at baseline) Cardiac: Yes (CAROTID DISEASE;LBBB;CHF; EF 25-30%;LINQ 10/2021;MITRAL REGURG) High Cholesterol, Hypertension, Valvular Heart Disease Neurological: Yes (CVA 10/2021) Dementia, Stroke Reproductive Disorders: No Sexually Transmitted Disease: No Genitourinary: Yes UTI-Chronic Gastrointestinal: Yes Gastroesophageal Reflux Musculoskeletal: Yes (FALLS; LEFT HIP FX 06/2021) Arthritis, Fractures Endocrine: No HEENT: Yes Hearing Impairment: Hard of Hearing Cancer: No Psychosocial: No Blood Disorders: Yes (ANEMIA) Adverse Reaction/Blood Tranf: No Family Medical History Cancer, COPD, Diabetes, Hypertension SOCIAL HISTORY: -SMOKED IN PAST -DENIES ETOH -DENIES DRUG USE PAST SURGICAL HISTORY: -LEFT HIP FRACTURE WITH HIP REPLACEMENT 06/2021 - -CHOLECYSTECTOMY -TONSILLECTOMY -BREAST BIOPSY -HYSTERECTOMY / BILATERAL SALPINGO-OOPHORECTOMY, WITH ANTERIOR AND POSTERIOR REPAIR [address] HERNANDEZ -CARDIAC CATH 2016--NO INTERVENTION -LINQ DEVICE IMPLANTED 10/2021 -STENT IN LEFT CAROTID -EGD / COLONOSCOPY WITH PYLORIC POLYP REMOVAL AND COLON POLYP REMOVAL X [address] 11/[address] MURRAY. Physical Exam Vital Signs Vital Signs - First Documented 12/25/22 12/25/22 06:05 06:07 Temp 36.6 Pulse 67 Resp 18 B/P (MAP) 133/91 (105) Pulse Ox 87 O2 Delivery Room Air O2 Flow Rate 2.00 Capillary Refill : Less Than 3 Seconds Height, Weight, BMI Height: 5'4.00" Weight: 188lbs. 0.0oz. 85.195656fm; 30.25 BMI Method:Stated General Appearance: No Apparent Distress, WD/WN HEENT: PERRL/EOMI, Normal ENT Inspection Neck: Normal Inspection; No JVD Respiratory: Lungs Clear, No Accessory Muscle Use, Decreased Breath Sounds (Diminished throughout), Rhonci; No Wheezing; Other (Coarse cough) Cardiovascular: Regular Rate, Rhythm, No Edema, No Murmur Gastrointestinal: Non Tender, Soft; No Distended Extremity: Normal Inspection, Non Tender, No Pedal Edema Neurologic/Psychiatric: Alert, Oriented x3, Normal Mood/Affect Skin: Normal Color, Warm/Dry Procedures/Interventions Suture Size: 5-0 Progress/Results/Core Measures Suspected Sepsis SIRS Temperature: Pulse: 67 Respiratory Rate: 18 Laboratory Tests 12/25/22 06:08: White Blood Count 3.9L Blood Pressure 133 /91 Mean: 105 Laboratory Tests 12/25/22 06:08: Creatinine 0.98, Platelet Count 126L, Total Bilirubin 0.3 Results/Orders Lab Results Laboratory Tests Test 12/25/22 06:08 12/25/22 08:08 Range/Units White Blood Count 3.9 L 4.3-11.0 10^3/uL Red Blood Count 3.31 L 3.80-5.11 10^6/uL Hemoglobin 9.5 L 11.5-16.0 g/dL Hematocrit 32 L 35-52 % Mean Corpuscular Volume 97 80-99 fL Mean Corpuscular Hemoglobin 29 25-34 pg Mean Corpuscular Hemoglobin Concent 30 L 32-36 g/dL Red Cell Distribution Width 15.3 H 10.0-14.5 % Platelet Count 126 L 130-400 10^3/uL Mean Platelet Volume 11.1 9.0-12.2 fL Immature Granulocyte % (Auto) 0 % Neutrophils (%) (Auto) 54 42-75 % Lymphocytes (%) (Auto) 33 12-44 % Monocytes (%) (Auto) 9 0-12 % Eosinophils (%) (Auto) 3 0-10 % Basophils (%) (Auto) 1 0-10 % Neutrophils # (Auto) 2.1 1.8-7.8 10^3/uL Lymphocytes # (Auto) 1.3 1.0-4.0 10^3/uL Monocytes # (Auto) 0.3 0.0-1.0 10^3/uL Eosinophils # (Auto) 0.1 0.0-0.3 10^3/uL Basophils # (Auto) 0.0 0.0-0.1 10^3/uL Immature Granulocyte # (Auto) 0.0 0.0-0.1 10^3/uL Percent Immature Platelet Fraction 4.0 0.0-7.6 % Sodium Level 142 135-145 MMOL/L Potassium Level 4.5 3.6-5.0 MMOL/L Chloride Level 104 98-107 MMOL/L Carbon Dioxide Level 29 21-32 MMOL/L Anion Gap 9 5-14 MMOL/L Blood Urea Nitrogen 26 H 7-18 MG/DL Creatinine 0.98 0.60-1.30 MG/DL Estimat Glomerular Filtration Rate 57 BUN/Creatinine Ratio 27 Glucose Level 105 70-105 MG/DL Calcium Level 9.2 8.5-10.1 MG/DL Corrected Calcium 9.4 8.5-10.1 MG/DL Total Bilirubin 0.3 0.1-1.0 MG/DL Aspartate Amino Transf (AST/SGOT) 21 5-34 U/L Alanine Aminotransferase (ALT/SGPT) 17 0-55 U/L Alkaline Phosphatase 79 40-136 U/L C-Reactive Protein High Sensitivity 2.23 H 0.00-0.50 MG/DL B-Type Natriuretic Peptide 91.5 <100.0 PG/ML Total Protein 6.7 6.4-8.2 GM/DL Albumin 3.7 3.2-4.5 GM/DL Influenza Type A (RT-PCR) Not Detected Not Detecte Influenza Type B (RT-PCR) Not Detected Not Detecte SARS-CoV-2 RNA (RT-PCR) Not Detected Not Detecte My Orders Orders - GUANAKITO CLIFTON MD Bnp [place] (12/25/22 06:12) Cbc With Automated Diff (12/25/22 06:12) Comprehensive Metabolic Panel (12/25/22 06:12) Hs C Reactive Protein (12/25/22 06:12) Ed Iv/Invasive Line Start (12/25/22 06:12) Monitor-Rhythm Ecg Trace Only (12/25/22 06:12) Chest 1 View, Ap/Pa Only (12/25/22 06:12) O2 (12/25/22 06:24) Covid 19 Inhouse Test (12/25/22 08:09) Influenza A And B By Pcr (12/25/22 08:09) Vital Signs/I&O 12/25/22 12/25/22 12/25/22 12/25/22 06:05 06:07 06:14 10:40 Temp 36.6 36.6 Pulse 67 79 Resp 18 18 B/P (MAP) 133/91 (105) 140/84 Pulse Ox 87 96 O2 Delivery Room Air Nasal Cannula Nasal Cannula Nasal Cannula O2 Flow Rate 2.00 2.00 2.00 2.00 Capillary Refill : Less Than 3 Seconds Blood Pressure Mean: 105 Progress Note #1: Time: 06:44 Progress Note Patient was interviewed and examined shortly after arrival. Nursing triage notes were reviewed. Prior H&P, ER note and discharge summary from prior admission were reviewed. We completed the nebulizer treatment started by EMS. Labs are pending. Chest x-ray is now being taken. Patient has no wheezing or crackles on exam. Breath sounds are generally diminished throughout. A coarse cough is noted. Patient states she does feel improved after receiving some of the nebulizer treatment. Further evaluation and treatment will be based on results of her studies and continued response to the nebulizer treatment. Progress Note #2: Progress Note Influenza and COVID swabs were negative. CBC demonstrated stable anemia. CMP was grossly unremarkable. Neither CRP nor BNP were significantly elevated. Chest x-ray demonstrated no new pneumonia. I reviewed the chest x-ray and noted the perihilar infiltrates and left lower lung effusion. I compared these with his prior and there appears to be no significant change. Patient remained in improved condition after her DuoNeb treatment. Family has not been giving scheduled nebulizer treatments since returning home. They were advised to do so. All labs and x-rays were reviewed by me personally and interpreted by me. Radiologist's report was also reviewed. See discharge instructions for further discussion. Diagnostic Imaging Diagonstic Imaging: Xray Plain Films/CT/US/NM/MRI: chest Comments NAME: LOKI LOPEZ [facility] REC#: [id number] PT STATUS: DEP ER : 1940 PHYSICIAN: GUANAKITO CLIFTON MD ADMIT DATE: 12/25/22/ER Signed Date of Exam:12/25/22 CHEST 1 VIEW, AP/PA ONLY INDICATION: 82-year-old female with cough and congestion Comparisons: 09/02/2022 FINDINGS: Single view chest shows the cardiac contour to be enlarged. There is a left lower lobe consolidation with underlying moderate left effusion. Some perihilar infiltrates are also seen with some moderate central venous congestion. Background chronic parenchymal changes are seen. There is aortic calcific atherosclerosis with slight tortuosity. There is bilateral shoulder arthropathy left worse than right. IMPRESSION: 1. Left lower lobe consolidation with underlying moderate left pleural effusion. 2. Some perihilar infiltrates right greater than left noted. 3. Bilateral shoulder arthropathy left greater than right. 4. Sclerosis. There is aortic calcific atherosclerosis with tortuosity. Dictated by: Dictated on workstation # [id number] Dict: 12/25/2249 Trans: 12/26/22 0818 [facility] [id number] Interpreted by: CLOVER RAYMUNDO MD Electronically signed by: CLOVER RAYMUNDO MD 12/26/22 0818 Departure Impression Primary Impression: COPD exacerbation Disposition: 01 HOME, SELF-CARE Condition: Improved Departure-Patient Inst. Decision time for Depature: 10:32 Referrals: ELZA FERGUSON DO (PCP/Family) Primary Care Physician Patient Instructions: COPD Exacerbation, Adult ED Add. Discharge Instructions: Use your nebulizer treatments every 4-8 hours on a scheduled basis over the next few days. Contact your primary care provider for a follow-up appointment later this week for reexamination and recheck of vital signs. In the meantime, continue medications as previously directed. Return to the emergency room if there are worsening symptoms despite following these instructions or if new symptoms such as fever develop. All discharge instructions reviewed with patient and/or family. Voiced understanding. Copy Copies To 1: ELZA FERGUSON JOSHUA T MD Dec 25, 2022 06:40
--- NOTE | 2022-12-25 06:55 | Diagnostic Imaging Report ---
INDICATION: 82-year-old female with cough and congestion Comparisons: 09/02/2022 FINDINGS: Single view chest shows the cardiac contour to be enlarged. There is a left lower lobe consolidation with underlying moderate left effusion. Some perihilar infiltrates are also seen with some moderate central venous congestion. Background chronic parenchymal changes are seen. There is aortic calcific atherosclerosis with slight tortuosity. There is bilateral shoulder arthropathy left worse than right. IMPRESSION: 1. Left lower lobe consolidation with underlying moderate left pleural effusion. 2. Some perihilar infiltrates right greater than left noted. 3. Bilateral shoulder arthropathy left greater than right. 4. Sclerosis. There is aortic calcific atherosclerosis with tortuosity. Dictated by: Dictated on workstation # [id number]
[2022-12-25 10:40] VITALS: BP 140/84
== END 2022-12-25 10:40 | disposition home or self-care (01) ==
LOC: EDUNIT# 05:57 → ER 06:03
DX: J44.0 Chronic obstructive pulmonary disease with (acute) lower respiratory infection (principal); J18.9 Pneumonia, unspecified organism; J44.1 Chronic obstructive pulmonary disease with (acute) exacerbation; I11.0 Hypertensive heart disease with heart failure; I50.9 Heart failure, unspecified; Z86.16 Personal history of COVID-19; Z99.81 Dependence on supplemental oxygen; Z79.02 Long term (current) use of antithrombotics/antiplatelets; Z87.891 Personal history of nicotine dependence; Z20.822 Contact with and (suspected) exposure to COVID-19; Z28.310 Unvaccinated for COVID-19
CPT/HCPCS: 36415; 36556; 71045; 80053; 83880; 85025; 86141; 87636; 93041

== ENCOUNTER 2023-01-19 07:14 | Emergency (ER) | payer MEDICARE, MEDICAID ==
[~2023-01-19] VITALS: Ht 162 cm; Wt 78.9 kg
--- NOTE | 2023-01-19 07:39 | ED Respiratory ---
General Chief Complaint: Respiratory Problems Stated Complaint: O2 LEVEL LOW - 88% Nursing Triage Note: ARRIVED VIA WC FROM HOME. SOA WAKING HER UP AT 0645. WAS SEEN AT THE DR YESTERDAY. X-RAY, LABS, AND COVID DONE. ALL NEG. Source: patient Exam Limitations: no limitations History of Present Illness Date Seen by Provider: Jan 19, 2023 Time Seen by Provider: 07:21 Initial Comments Here with increasing shortness of breath over the last couple days. Seen at primary care provider's office yesterday and had labs and x-ray done they thought she was okay. No medication changes per patient or family. Patient denies fever or chills. Family member reports that she has had increasing shortness of breath and she had to turn up her oxygen all the way on her home concentrator. Does have history of COPD and CHF. Several months ago she had to have adjustments of her CHF meds and she occasionally does breathing treatments but has not done that in the last 2 days. Denies sore throat runny nose or cough. Denies chest pain or vomiting. Main complaint is shortness of breath. Timing/Duration: yesterday, getting worse Severity: moderate Prior Episodes/Possible Cause: occasional episodes Modifying Factors: Worse With Activity; Improves With Oxygen Associated Symptoms: No chest pain/soreness, No cough, No fever/chills; shortness of breath; No wheezing Allergies and Home Medications Allergies Coded Allergies: cortisone (Verified Allergy, Unknown, 01/30/07) diphenhydramine (Verified Allergy, Unknown, 01/30/07) penicillin G (Verified Allergy, Unknown, 07/12/21) The patient is unaware that she has a penicillin allergy. She does not remember ever taking it and if she did what the reaction was. It has not been recently. Patient Home Medication List Home Medication List Reviewed: Yes Acetaminophen (Tylenol Extra Strength) 500 Mg Tablet, 500-1,000 MG PO Q8H PRN for PAIN-MILD (1-4), (Reported) Entered as Reported by: ELZA AGUILAR on 10/11/21 1542 Amlodipine Besylate (Amlodipine Besylate) 10 Mg Tablet, 10 MG PO DAILY Prescribed by: MAC LINDSEY on 09/07/22 1201 Apixaban (Eliquis) 5 Mg Tablet, 5 MG PO BID, (Reported) Entered as Reported by: LILA DOVER on 03/20/22 0940 Atorvastatin Calcium (Atorvastatin Calcium) 20 Mg Tablet, 20 MG PO DAILY, (Repor mai) Entered as Reported by: ELZA AGUILAR on 10/11/21 154 Cefdinir (Cefdinir) 300 Mg Capsule, 300 MG PO BID Prescribed by: MAC LINDSEY on 09/07/22 1201 Cetirizine HCl (Cetirizine HCl) 10 Mg Tablet, 10 MG PO DAILY, (Reported) Entered as Reported by: ELZA AGUILAR on 10/11/21 154 Clopidogrel Bisulfate (Clopidogrel) 75 Mg Tablet, 75 MG PO DAILY, (Reported) Entered as Reported by: LILA DOVER on 03/20/22 09 Diclofenac Sodium (Diclofenac Sodium) 1 % Gel..gram., 1 APPLIC TOP QID PRN for PAIN-BREAKTHROUGH, (Reported) Entered as Reported by: ELZA AGUILAR on 11/09/21 111 Docusate Sodium (Stool Softener) 100 Mg Capsule, 100 MG PO DAILY PRN for CONSTIPATION-1ST LINE, (Reported) Entered as Reported by: LILA DOVER on 03/20/22 09 Lisinopril (Lisinopril) 40 Mg Tablet, 40 MG PO DAILY, (Reported) Entered as Reported by: ELZA AGUILAR on 10/11/211541 Melatonin (Melatonin) 10 Mg Tablet, 10 MG PO HS, (Reported) Entered as Reported by: ELZA AGUILAR on 11/09/21 111 Metoclopramide HCl (Metoclopramide HCl) 10 Mg Tablet, 10 MG PO BID, (Reported) Entered as Reported by: ELZA AGUILAR on 10/11/21 154 Metoprolol Succinate (Metoprolol Succinate) 50 Mg Tab.er.24h, 50 MG PO DAILY, (Reported) Entered as Reported by: ELZA AGUILAR on 10/11/21 154 Montelukast Sodium (Montelukast Sodium) 10 Mg Tablet, 10 MG PO HS, (Reported) Entered as Reported by: ELZA AGUILAR on 10/11/21 154 Sertraline HCl (Sertraline HCl) 25 Mg Tablet, 25 MG PO DAILY, (Reported) Entered as Reported by: LILA DOVER on 03/20/22 09 Trazodone HCl (Trazodone HCl) 100 Mg Tablet, 100 MG PO HS, (Reported) Entered as Reported by: ELZA AGUILAR on 10/11/21 1542 Review of Systems Review of Systems Constitutional: see HPI; No chills, No fever EENTM: No nose congestion, No throat pain Respiratory: cough, short of breath Cardiovascular: No chest pain; edema Gastrointestinal: No nausea, No vomiting Musculoskeletal: no symptoms reported Skin: no symptoms reported Past Rgxmjrx-Mghkld-Qpwjzb Hx Patient Social History Tobacco Use?: Yes Smoking Status: Former Smoker Substance use?: No Alcohol Use?: No Immunizations Up To Date Tetanus Booster (TDap): Less than 5yrs PED Vaccines UTD: Yes First/Initial COVID19 Vaccinat: RECEIVED, UNK WHEN Second COVID19 Vaccination Taurus: RECEIVED, UNK WHEN Third COVID19 Vaccination Date: RECEIVED, UNK WHEN Seasonal Allergies Seasonal Allergies: Yes Past Medical History Surgery/Hospitalization HX: htn, gerd, high cholesterol, asthma, CHF, COPD, STENT IN RT NECK, LT HIP Surgeries: Yes (RIGHT BREAST BIOPSY; ROTATOR CUFF; LEFT HIP 06/2021) Section, Gallbladder, Hysterectomy, Oophorectomy, Orthopedic, Tonsillectomy Respiratory: Yes (COVID-19 12/2020-NO HOSPITALIZATION OR TREATMENT) Pneumonia, COPD Cardiac: Yes (CAROTID DISEASE;LBBB;CHF; EF 25-30%;LINQ 10/2021;MITRAL REGURG) High Cholesterol, Hypertension, Valvular Heart Disease Neurological: Yes (CVA 10/2021) Dementia, Stroke Reproductive Disorders: No Sexually Transmitted Disease: No Genitourinary: Yes UTI-Chronic Gastrointestinal: Yes Gastroesophageal Reflux Musculoskeletal: Yes (FALLS; LEFT HIP FX 06/2021) Arthritis, Fractures Endocrine: No HEENT: Yes Hearing Impairment: Hard of Hearing Cancer: No Psychosocial: No Blood Disorders: Yes (ANEMIA) Adverse Reaction/Blood Tranf: No Family Medical History Reviewed Nursing Family Hx Cancer, COPD, Diabetes, Hypertension SOCIAL HISTORY: -SMOKED IN PAST -DENIES ETOH -DENIES DRUG USE PAST SURGICAL HISTORY: -LEFT HIP FRACTURE WITH HIP REPLACEMENT 06/2021 - -CHOLECYSTECTOMY -TONSILLECTOMY -BREAST BIOPSY -HYSTERECTOMY / BILATERAL SALPINGO-OOPHORECTOMY, WITH ANTERIOR AND POSTERIOR REPAIR [address] HERNANDEZ -CARDIAC CATH 2016--NO INTERVENTION -LINQ DEVICE IMPLANTED 10/2021 -STENT IN LEFT CAROTID -EGD / COLONOSCOPY WITH PYLORIC POLYP REMOVAL AND COLON POLYP REMOVAL X 2 11/[address] MURRAY. Physical Exam Vital Signs - First Documented 01/19/23 07:21 Temp 36.9 Pulse 81 Resp 20 B/P (MAP) 139/98 (112) Pulse Ox 88 O2 Delivery Nasal Cannula O2 Flow Rate 3.00 Capillary Refill : Less Than 3 Seconds Height: 5'4.00" Weight: 188lbs. 0.0oz. 85.567079vw; 30.00 BMI Method:Stated General Appearance: WD/WN, no apparent distress HEENT: PERRL/EOMI, pharynx normal Neck: full range of motion, supple Respiratory: decreased breath sounds, crackles (Bilateral bases) Cardiovascular: regular rate, rhythm, no murmur Gastrointestinal: non tender, soft Extremities: non-tender, normal inspection Neurologic/Psychiatric: alert, oriented x 3 Skin: normal color, warm/dry Focused Exam Lactate Level 01/19/23 07:38: Lactic Acid Level 1.14 Lactic Acid Level Laboratory Tests Test 01/19/23 07:38 Lactic Acid Level 1.14 MMOL/L (0.50-2.00) Procedures/Interventions Suture Size: 5-0 Progress/Results/Core Measures Suspected Sepsis SIRS Temperature: Pulse: 81 Respiratory Rate: 20 Laboratory Tests 01/19/23 07:38: White Blood Count 5.2 Blood Pressure 139 /98 Mean: 112 01/19/23 07:38: Lactic Acid Level 1.14 Laboratory Tests 01/19/23 07:38: Creatinine 0.97, INR Comment 1.2, Platelet Count 123L, Total Bilirubin 0.4 Results/Orders Lab Results Laboratory Tests Test 01/19/23 07:38 Range/Units White Blood Count 5.2 4.3-11.0 10^3/uL Red Blood Count 3.34 L 3.80-5.11 10^6/uL Hemoglobin 9.8 L 11.5-16.0 g/dL Hematocrit 33 L 35-52 % Mean Corpuscular Volume 99 80-99 fL Mean Corpuscular Hemoglobin 29 25-34 pg Mean Corpuscular Hemoglobin Concent 30 L 32-36 g/dL Red Cell Distribution Width 15.1 H 10.0-14.5 % Platelet Count 123 L 130-400 10^3/uL Mean Platelet Volume 10.8 9.0-12.2 fL Immature Granulocyte % (Auto) 0 % Neutrophils (%) (Auto) 72 42-75 % Lymphocytes (%) (Auto) 20 12-44 % Monocytes (%) (Auto) 6 0-12 % Eosinophils (%) (Auto) 1 0-10 % Basophils (%) (Auto) 1 0-10 % Neutrophils # (Auto) 3.7 1.8-7.8 10^3/uL Lymphocytes # (Auto) 1.0 1.0-4.0 10^3/uL Monocytes # (Auto) 0.3 0.0-1.0 10^3/uL Eosinophils # (Auto) 0.1 0.0-0.3 10^3/uL Basophils # (Auto) 0.0 0.0-0.1 10^3/uL Immature Granulocyte # (Auto) 0.0 0.0-0.1 10^3/uL Percent Immature Platelet Fraction 5.3 0.0-7.6 % Prothrombin Time 15.2 H 12.2-14.7 SEC INR Comment 1.2 0.8-1.4 Activated Partial Thromboplast Time 36 H 24-35 SEC Sodium Level 143 135-145 MMOL/L Potassium Level 4.4 3.6-5.0 MMOL/L Chloride Level 101 98-107 MMOL/L Carbon Dioxide Level 33 H 21-32 MMOL/L Anion Gap 9 5-14 MMOL/L Blood Urea Nitrogen 20 H 7-18 MG/DL Creatinine 0.97 0.60-1.30 MG/DL Estimat Glomerular Filtration Rate 58 BUN/Creatinine Ratio 21 Glucose Level 145 H 70-105 MG/DL Lactic Acid Level 1.14 0.50-2.00 MMOL/L Calcium Level 9.2 8.5-10.1 MG/DL Corrected Calcium 9.3 8.5-10.1 MG/DL Magnesium Level 2.0 1.6-2.4 MG/DL Total Bilirubin 0.4 0.1-1.0 MG/DL Aspartate Amino Transf (AST/SGOT) 15 5-34 U/L Alanine Aminotransferase (ALT/SGPT) 13 0-55 U/L Alkaline Phosphatase 88 40-136 U/L Troponin I < 0.028 <0.028 NG/ML C-Reactive Protein High Sensitivity 3.43 H 0.00-0.50 MG/DL B-Type Natriuretic Peptide 117.3 H <100.0 PG/ML Total Protein 6.9 6.4-8.2 GM/DL Albumin 3.9 3.2-4.5 GM/DL Smear Scan YES My Orders Orders - KOKO CAR MD Ekg Tracing (01/19/23 07:29) Cbc With Automated Diff (01/19/23 07:31) Comprehensive Metabolic Panel (01/19/23 07:31) Blood Culture (01/19/23 07:31) Sputum Culture (01/19/23 07:31) Protime With Inr (01/19/23 07:31) Partial Thromboplastin Time (01/19/23 07:31) Chest 1 View, Ap/Pa Only (01/19/23 07:31) Ed Iv/Invasive Line Start (01/19/23 07:31) Troponin I Powell (01/19/23 07:31) Vital Signs Adult Sepsis Patie Q15M (01/19/23 07:31) O2 (01/19/23 07:31) Remove Rings In Anticipation O (01/19/23 07:31) Lactic Acid Analyzer (01/19/23 07:31) Bnp Mya (01/19/23 07:31) Hs C Reactive Protein (01/19/23 07:31) Magnesium (01/19/23 07:31) Albuterol/Ipra Inhalation Soln (Duoneb I (01/19/23 07:45) Svn Small Volume Nebulizer (01/19/23 07:31) Albuterol Pre-Mix Nebs (Rt) (Proventil (01/19/23 08:37) Svn Small Volume Nebulizer (01/19/23 08:37) Prednisone Tablet (Deltasone Tablet) (01/19/23 08:45) Medications Given in ED Current Medications Medications Dose Ordered Sig/Trevon Route Start Time Stop Time Status Last Admin Dose Admin Albuterol/ Ipratropium 3 ml ONCE ONCE INH 01/19/23 07:45 01/19/23 07:46 DC 01/19/23 07:54 3 ML Prednisone 40 mg ONCE ONCE PO 01/19/23 08:45 01/19/23 08:46 DC 01/19/23 08:57 40 MG Vital Signs/I&O 01/19/23 01/19/23 01/19/23 01/19/23 07:21 07:21 07:26 07:54 Temp 36.9 Pulse 81 Resp 20 B/P (MAP) 139/98 (112) Pulse Ox 88 88 95 O2 Delivery Nasal Cannula Nasal Cannula Nasal Cannula Nasal Cannula O2 Flow Rate 3.00 2.00 4.00 01/19/23 09:07 Pulse Ox 94 O2 Delivery Nasal Cannula O2 Flow Rate 2.00 Capillary Refill : Less Than 3 Seconds Blood Pressure Mean: 112 Progress Note : Progress Note Seen and evaluated. Patient is complicated picture due to underlying medical problems including heart disease, heart failure and COPD. We will initiate sepsis protocol due to cough and breathing problems and that includes IV, labs including CBC, CMP, CRP, troponin, BNP and coags. We will get chest x-ray. No urinary tract symptoms so we will hold on UA at this point. We will get chest x-ray. DuoNeb has been ordered. Blood pressure is appropriate some holding on fluids at this point especially in light of possible heart failure but we we will add some if indicated. Blood cultures and lactic acid have been ordered. Monitor patient. Differential diagnosis includes pneumonia, heart failure, COPD exacerbation, electrolyte abnormality O2 has been applied and is at 4 L/min to keep O2 saturations at 90 to 91%. She is normally on 2 L via nasal cannula. 0755: Left pleural effusion noted on chest x-ray on my interpretation pending radiology report. CBC shows normal white count and hemoglobin is somewhat low without left shift. Lactic acid is negative. Pending chemistries and other labs. Monitor patient. 0838: Coags consistent with Eliquis use. CRP slightly elevated. CMP is grossly normal. Patient overall doing well. No indication of pneumonia or heart failure as BNP is not significantly elevated. Troponin is negative. We will give additional albuterol nebulizer treatment now and prednisone 40 mg p.o. O2 saturations mid 90s on 4 L and turned it down to 2 L and she seems to be maintaining greater than 91% on her typical 2 L. Patient and family feel comfortable going home if she continues to tune up well. We will recheck after treatment. Monitor patient. 0923: Overall doing much better. Satting 92 to 94% on 2 L. I did discuss with the patient about home therapy with nebulizer treatments and we will initiate outpatient steroids for the next 4 days. She will follow-up with her doctor early next week. Discharged home with return precautions. Patient and granddaughter verbalized understanding instructions and agreement with plan. ECG Initial ECG Impression Date: Jan 19, 2023 Initial ECG Impression Time: 07:36 Initial ECG Rate: 77 Comment Seen this was done with multiple PACs and left axis deviation with left bundle branch block. Very similar in appearance to 09/02/2022. No evidence of ST elevation [place]. Interpreted by me. Diagnostic Imaging Diagonstic Imaging: Xray Plain Films/CT/US/NM/MRI: chest Comments [facility]. [place], [place] NAME: LOKI LOPEZ [facility] REC#: [id number] PT STATUS: REG ER : 1940 PHYSICIAN: KOKO CAR MD ADMIT DATE: 01/19/23/ER Signed Date of Exam:01/19/23 CHEST 1 VIEW, AP/PA ONLY CHEST 1 VIEW, AP/PA ONLY Indication: Shortness of air Comparison: 12/25/2022 Findings: Improved aeration of left lung base with a small amount of residual linear opacities. There may be residual small left pleural effusion. No pneumothorax. Stable cardiomegaly. Impression: 1. Improved but persistent left basilar opacities that could be due to a combination of atelectasis and pleural effusion. Dictated by: Dictated on workstation # [id number] Dict: 01/19/23 0750 Trans: 01/19/23 0851 [facility] [id number] Interpreted by: BLANE MARQUEZ MD Electronically signed by: BLANE MARQUEZ MD 01/19/23 0851 Departure Impression Primary Impression: COPD exacerbation Disposition: 01 HOME, SELF-CARE Condition: Improved Departure-Patient Inst. Decision time for Depature: 09:25 Referrals: ELZA FERGUSON DO (PCP/Family) Primary Care Physician Patient Instructions: COPD Exacerbation, Adult ED Add. Discharge Instructions: All discharge instructions reviewed with patient and/or family. Voiced understanding. Use home nebulizer albuterol treatments every 4-6 hours. Take medications as directed. Continue home medications as previously prescribed. Follow-up with your doctor early next week for recheck and further evaluation. Return for fever, weakness, breathing problems, increasing oxygen requirements at rest, chest pain or other concerns as needed. Scripts Prednisone (Prednisone) 20 Mg Tab 40 MG PO DAILY, #8 TAB 0 Refills Prov: KOKO CAR MD 01/19/23 Copy Copies To 1: ELZA FERGUSON TIMOTHY D MD Jan 19, 2023 07:39
[2023-01-19 07:43] LABS: HEMOGLOBIN 9.8 g/dL (11.5-16.0); MEAN PLATELET VOLUME 10.8 fL (9.0-12.2)
[2023-01-19 07:45] LABS: BASOPHILS % (AUTO) 1 % (0-10); EOSINOPHILS # (AUTO) 0.1 10^3/uL (0.0-0.3); EOSINOPHILS % (AUTO) 1 % (0-10); HEMATOCRIT 33 % (35-52); LYMPHOCYTES % (AUTO) 20 % (12-44); MEAN CORPUSCULAR HEMOGLOBIN 29 pg (25-34); MEAN CORPUSCULAR HGB CONC 30 g/dL (32-36); MEAN CORPUSCULAR VOLUME 99 fL (80-99); MONOCYTES # (AUTO) 0.3 10^3/uL (0.0-1.0); MONOCYTES % (AUTO) 6 % (0-12); NEUTROPHILS # (AUTO) 3.7 10^3/uL (1.8-7.8); NEUTROPHILS % (AUTO) 72 % (42-75); PLATELET COUNT 123 10^3/uL (130-400); WHITE BLOOD COUNT 5.2 10^3/uL (4.3-11.0)
[2023-01-19] MEDS ORDERED: RT-ALBUTEROL/IPRATROPIUM 3 ML (DUONEB) VIAL INH ONE (07:45)
[2023-01-19 07:47] LABS: SMEAR SCAN COMMENT YES
[2023-01-19 07:54] LABS: INR 1.2 (0.8-1.4); PROTHROMBIN TIME PATIENT 15.2 SEC (12.2-14.7)
--- NOTE | 2023-01-19 07:55 | Diagnostic Imaging Report ---
CHEST 1 VIEW, AP/PA ONLY Indication: Shortness of air Comparison: 12/25/2022 Findings: Improved aeration of left lung base with a small amount of residual linear opacities. There may be residual small left pleural effusion. No pneumothorax. Stable cardiomegaly. Impression: 1. Improved but persistent left basilar opacities that could be due to a combination of atelectasis and pleural effusion. Dictated by: Dictated on workstation # [id number]
[2023-01-19 07:56] LABS: ALBUMIN 3.9 GM/DL (3.2-4.5); CHLORIDE 101 MMOL/L (98-107); POTASSIUM 4.4 MMOL/L (3.6-5.0); SODIUM 143 MMOL/L (135-145)
[2023-01-19 07:57] LABS: CALCIUM 9.2 MG/DL (8.5-10.1)
[2023-01-19 07:58] LABS: GLUCOSE 145 MG/DL (70-105); TOTAL PROTEIN 6.9 GM/DL (6.4-8.2)
[2023-01-19 07:59] LABS: CARBON DIOXIDE 33 MMOL/L (21-32)
[2023-01-19 08:00] LABS: BILIRUBIN,TOTAL 0.4 MG/DL (0.1-1.0)
[2023-01-19 08:02] LABS: ALKALINE PHOSPHATASE 88 U/L (40-136); CREATININE SERUM 0.97 MG/DL (0.60-1.30); GFR ESTIMATED 58
[2023-01-19 08:03] LABS: BUN/CREATININE RATIO 21
[2023-01-19 08:05] LABS: ALANINE AMINOTRANSFERASE 13 U/L (0-55)
[2023-01-19] MEDS ORDERED: RT-ALBUTEROL SULF 2.5 MG/3 ML PRE-MIX VIAL INH STA (08:37)
[2023-01-19] MEDS ORDERED: predniSONE 20 MG TAB PO ONE (08:45)
[2023-01-19] MEDS ORDERED: PRD20T PO (09:27)
[2023-01-19 09:34] VITALS: BP 134/76
== END 2023-01-19 09:34 | disposition home or self-care (01) ==
LOC: EDUNIT# 07:14 → ER 07:16
DX: J44.9 Chronic obstructive pulmonary disease, unspecified (principal); I44.7 Left bundle-branch block, unspecified; I49.1 Atrial premature depolarization; J90 Pleural effusion, not elsewhere classified; D64.9 Anemia, unspecified; R79.82 Elevated C-reactive protein (CRP); Z86.16 Personal history of COVID-19; Z87.891 Personal history of nicotine dependence; Z88.8 Allergy status to other drugs, medicaments and biological substances
CPT/HCPCS: 36415; 71045; 80053; 83605; 83735; 83880; 84484; 85025; 85610; 85730; 86141; 87040; 87077; 93005; 94640

== ENCOUNTER 2023-03-17 19:49 | Observation (INO) | payer MEDICARE, MEDICAID ==
[~2023-03-17] VITALS: Ht 162.6 cm; Wt 82.3 kg
[~2023-03-17 19:49] MED LIST changes: +PRD20T PO
[2023-03-17] MEDS ORDERED: LIDOCAINE UROJET 2% GEL 10 ML PKG TOP ONE (20:00)
[2023-03-17 20:13] LABS: BASOPHILS % (AUTO) 0 % (0-10); EOSINOPHILS # (AUTO) 0.1 10^3/uL (0.0-0.3); EOSINOPHILS % (AUTO) 2 % (0-10); HEMATOCRIT 34 % (35-52); HEMOGLOBIN 10.1 g/dL (11.5-16.0); LYMPHOCYTES # (AUTO) 1.2 10^3/uL (1.0-4.0); LYMPHOCYTES % (AUTO) 24 % (12-44); MEAN CORPUSCULAR HEMOGLOBIN 29 pg (25-34); MEAN CORPUSCULAR HGB CONC 30 g/dL (32-36); MEAN CORPUSCULAR VOLUME 99 fL (80-99); MEAN PLATELET VOLUME 10.8 fL (9.0-12.2); MONOCYTES # (AUTO) 0.3 10^3/uL (0.0-1.0); MONOCYTES % (AUTO) 6 % (0-12); NEUTROPHILS # (AUTO) 3.4 10^3/uL (1.8-7.8); NEUTROPHILS % (AUTO) 67 % (42-75); PLATELET COUNT 142 10^3/uL (130-400)
--- NOTE | 2023-03-17 20:18 | Diagnostic Imaging Report ---
PROCEDURE: CT head wo r/o stroke. TECHNIQUE: Multiple contiguous axial images were obtained through the brain without the use of intravenous contrast. Auto Exposure Controls were utilized during the CT exam to meet ALARA standards for radiation dose reduction. INDICATION: Neuro deficit, facial droop and slurred speech. COMPARISON: 11/08/2021. FINDINGS: No intracranial hyperdense hemorrhage or space-occupying mass. No hydrocephalus or midline shift. No hyperdense vessel sign. Louie-white matter differentiation is well-preserved. Basilar cisterns are patent. Periventricular hypoattenuation is most compatible chronic microvascular ischemic change. No skull fracture. Paranasal sinuses and mastoid air cells are clear. IMPRESSION: 1. No acute hemorrhage or large territorial infarct. Dictated by: Dictated on workstation # [id number]
[2023-03-17 20:21] LABS: ALBUMIN 3.8 GM/DL (3.2-4.5); INR 1.2 (0.8-1.4); PROTHROMBIN TIME PATIENT 15.4 SEC (12.2-14.7)
[2023-03-17 20:22] LABS: CHLORIDE 99 MMOL/L (98-107); POTASSIUM 3.8 MMOL/L (3.6-5.0); SODIUM 143 MMOL/L (135-145)
[2023-03-17 20:24] LABS: GLUCOSE 164 MG/DL (70-105); TOTAL PROTEIN 6.5 GM/DL (6.4-8.2)
[2023-03-17 20:25] LABS: CARBON DIOXIDE 32 MMOL/L (21-32)
[2023-03-17 20:26] LABS: BILIRUBIN,TOTAL 0.4 MG/DL (0.1-1.0)
[2023-03-17 20:27] LABS: ALKALINE PHOSPHATASE 83 U/L (40-136)
[2023-03-17 20:28] LABS: CREATININE SERUM 0.85 MG/DL (0.60-1.30); GFR ESTIMATED 68
[2023-03-17 20:29] LABS: BUN/CREATININE RATIO 21
[2023-03-17 20:31] LABS: ALANINE AMINOTRANSFERASE 12 U/L (0-55)
--- NOTE | 2023-03-17 20:31 | ED Neurological Problem ---
General Chief Complaint: Neuro-Stroke Like Symptoms Stated Complaint: SLURRED SPEECH/FACIAL DROOPING Source: patient (LIMITED HISTORIAN--HAS DEMENTIA), other (GRAND DAUGHTER GIVES MOST INFORMATION) History of Present Illness Date Seen by Provider: Mar 17, 2023 Time Seen by Provider: 19:54 Initial Comments PT ARRIVES VIA POV FROM HOME WITH GRAND DAUGHTER--PT LIVES WITH GRAND DAUGHTER AND GRAND DAUGHTER'S BROUGHT IN BY WHEELCHAIR GRAND DAUGHTER NOTICED A COUPLE OF HOURS AGO THAT PT WAS HAVING TROUBLE GETTING WORDS OUT AND HAD LEFT FACIAL DROOP LAST KNOWN WELL TIME WAS 2200 LAST PM. GRAND DAUGHTER STATES THAT PT HAS BEEN SITTING IN THE FRONT ROOM ALL DAY, BUT HAD NOT REALLY COMMUNICATED WITH HER AT ALL TODAY, UNTIL AROUND [phone] WHEN PT YELLED OUT NEEDING TO GO TO THE BATHROOM GRAND DAUGHTER STATES THAT PT WAS STUTTERING AND HAD LEFT FACIAL DROOP. PT WAS ABLE TO WALK TO AND FROM BATHROOM NORMALLY. PT DID EAT DINNER AT 1830, BUT DID GET CHOKED AND HAD SOME COUGHING WHEN SHE WAS EATING. GRAND DAUGHTER STATES THAT OTHERWISE SHE IS AT NORMAL BASELINE MENTALLY--PT WITH DEMENTIA. ON DIRECT QUESTIONING, PT IS ABLE TO ANSWER A FEW BASIC QUESTIONS DENIES HEADACHE DENIES VISION CHANGES DENIES DIZZINESS DENIES NAUSEA/VOMITING DENIES NUMBNESS/TINGLING OR DIFFICULTY MOVING ARMS OR LEGS OR WALKING DENIES CHEST PAIN DENIES SHORTNESS OF BREATH DENIES SWEATS NO FEVER OR RECENT ILLNESS NO FALLS OR HITTING HER HEAD PT HAS HISTORY OF CVA 10/2021 AND HAS RIGHT CAROTID STENT SHE IS MAINTAINED ON ELIQUIS AND PLAVIX--SHE HAS TAKEN ALL OF HER MEDICATIONS TODAY PCP: DR. FERGUSON AT [facility]--[facility] [place] CV SURGEON--DR. BLOUNT AT [facility] Allergies and Home Medications Allergies Coded Allergies: cortisone (Verified Allergy, Unknown, 03/17/23) diphenhydramine (Verified Allergy, Unknown, 03/17/23) penicillin G (Verified Allergy, Unknown, 03/17/23) The patient is unaware that she has a penicillin allergy. She does not remember ever taking it and if she did what the reaction was. It has not been recently. Patient Home Medication List Home Medication List Reviewed: Yes Albuterol Sulfate (Albuterol Sulfate) 0.63 Mg/3 Ml Vial.neb, 0.63 MG IH for SHORTNESS OF BREATH, (Reported) Entered as Reported by: GURWINDER MEYER on 03/18/231558 Last Action: New Order Amlodipine Besylate (Amlodipine Besylate) 10 Mg Tablet, 10 MG PO DAILY Prescribed by: MAC LINDSEY on 09/07/22 1201 Last Action: Continued Apixaban (Eliquis) 5 Mg Tablet, 5 MG PO BID, (Reported) Entered as Reported by: LILA DOVER on 03/20/22 0940 Last Action: Continued Atorvastatin Calcium (Atorvastatin Calcium) 20 Mg Tablet, 20 MG PO DAILY, (Reported) Entered as Reported by: ELZA AGUILAR on 10/11/211541 Last Action: Continued Clopidogrel Bisulfate (Clopidogrel) 75 Mg Tablet, 75 MG PO DAILY, (Reported) Entered as Reported by: LILA DOVER on 03/20/22 0939 Last Action: Continued Diclofenac Sodium (Diclofenac Sodium) 1 % Gel..gram., 1 APPLIC TOP QID PRN for PAIN-BREAKTHROUGH, (Reported) Entered as Reported by: ELZA AGUILAR on 11/09/211111 Last Action: Continued Fluticasone Propionate (Flovent Diskus 100 mcg) 100 Mcg Blst.w.dev, 100 MCG IH DAILY PRN for SHORTNESS OF BREATH, (Reported) Entered as Reported by: GURWINDER MEYER on 03/18/231558 Last Action: New Order Lisinopril (Lisinopril) 40 Mg Tablet, 40 MG PO DAILY, (Reported) Entered as Reported by: ELZA AGUILAR on 10/11/211541 Last Action: Continued Melatonin (Melatonin) 10 Mg Tablet, 10 MG PO HS, (Reported) Entered as Reported by: ELZA AGUILAR on 11/09/211111 Last Action: Continued Metoclopramide HCl (Metoclopramide HCl) 10 Mg Tablet, 10 MG PO BID, (Reported) Entered as Reported by: ELZA AGUILAR on 10/11/211541 Last Action: Continued Metoprolol Succinate (Metoprolol Succinate) 50 Mg Tab.er.24h, 50 MG PO DAILY, (Reported) Entered as Reported by: ELZA AGUILAR on 10/11/211541 Last Action: Continued Montelukast Sodium (Montelukast Sodium) 10 Mg Tablet, 10 MG PO HS, (Reported) Entered as Reported by: ELZA AGUILAR on 10/11/211541 Last Action: Continued Nystatin/Triamcinolone (Nystatin-Triamcinolone Cream) 100,000 Unit/Gram-0.1 % Cr , 15 GM TP for RASH/ITCHING/YEAST-AREAS, (Reported) Entered as Reported by: GURWINDER MEYER on 03/18/231558 Last Action: New Order Sertraline HCl (Sertraline HCl) 25 Mg Tablet, 25 MG PO DAILY, (Reported) Entered as Reported by: LILA DOVER on 03/20/2239 Last Action: Converted Trazodone HCl (Trazodone HCl) 100 Mg Tablet, 100 MG PO HS, (Reported) Entered as Reported by: ELZA AGUILAR on 10/11/211541 Last Action: Continued Umeclidinium Lima (Incruse Ellipta) 62.5 Mcg/Actuation Blst.w.dev, 62.5 MCG IH for SHORTNESS OF BREATH, (Reported) Entered as Reported by: GURWINDER MEYER on 03/18/231558 Last Action: New Order Discontinued Medications Acetaminophen (Tylenol Extra Strength) 500 Mg Tablet, 500-1,000 MG PO Q8H PRN for PAIN-MILD (1-4), (Reported) Discontinued Reason: No Longer Taking Entered as Reported by: ELZA AGUILAR on 10/11/211541 Last Action: Discontinued Cefdinir (Cefdinir) 300 Mg Capsule, 300 MG PO BID Discontinued Reason: No Longer Taking Prescribed by: MAC LINDSEY on 09/07/22 1201 Last Action: Discontinued Cetirizine HCl (Cetirizine HCl) 10 Mg Tablet, 10 MG PO DAILY, (Reported) Discontinued Reason: No Longer Taking Entered as Reported by: ELZA AGUILAR on 10/11/211541 Last Action: Discontinued Docusate Sodium (Stool Softener) 100 Mg Capsule, 100 MG PO DAILY PRN for CONSTIPATION-1ST LINE, (Reported) Discontinued Reason: No Longer Taking Entered as Reported by: LILA DOVER on 03/20/2278 Last Action: Discontinued Prednisone (Prednisone) 20 Mg Tab, 40 MG PO DAILY Discontinued Reason: No Longer Taking Prescribed by: KOKO CAR on 01/19/23926 Last Action: Discontinued Review of Systems Review of Systems Constitutional: no symptoms reported Eyes: No Symptoms Reported Ears, Nose, Mouth, Throat: see HPI Respiratory: no symptoms reported Cardiovascular: no symptoms reported Gastrointestinal: no symptoms reported Genitourinary: no symptoms reported Musculoskeletal: no symptoms reported Skin: no symptoms reported Psychiatric/Neurological: See HPI Endocrine: No Symptoms Reported Hematologic/Lymphatic: No Symptoms Reported Past Zkiczry-Pwtvfh-Wgzspd Hx Patient Social History Tobacco Use?: Yes Tobacco type used: Cigarettes Smoking Status: Former Smoker Substance use?: No Alcohol Use?: No Pt feels they are or have been: No Immunizations Up To Date Tetanus Booster (TDap): Less than 5yrs PED Vaccines UTD: Yes First/Initial COVID19 Vaccinat: RECEIVED, UNK WHEN Second COVID19 Vaccination Taurus: RECEIVED, UNK WHEN Third COVID19 Vaccination Date: RECEIVED, UNK WHEN Seasonal Allergies Seasonal Allergies: Yes Past Medical History Surgery/Hospitalization HX: htn, gerd, high cholesterol, asthma, CHF, COPD, STENT IN RT NECK, LT HIP Surgeries: Yes (RIGHT BREAST BIOPSY; ROTATOR CUFF; LEFT HIP 06/2021;R CAROTID STENT;LOOP) Section, Gallbladder, Hysterectomy, Oophorectomy, Orthopedic, Tonsillectomy Respiratory: Yes (COVID-19 12/2020-NO HOSPITALIZATION OR TREATMENT) Pneumonia, COPD Cardiac: Yes (CAROTID DISEASE;LBBB;CHF; EF 25-30%;LINQ 10/2021;MITRAL REGURG) High Cholesterol, Hypertension, Peripheral Vascular, Valvular Heart Disease Neurological: Yes (CVA 10/2021) Dementia, Stroke Reproductive Disorders: No Sexually Transmitted Disease: No Genitourinary: Yes UTI-Chronic Gastrointestinal: Yes Gastroesophageal Reflux Musculoskeletal: Yes (FALLS; LEFT HIP FX 06/2021) Arthritis, Fractures Endocrine: No HEENT: Yes (EDENTULOUS) Hearing Impairment: Hard of Hearing Cancer: No Psychosocial: No Blood Disorders: Yes (ANEMIA) Adverse Reaction/Blood Tranf: No Family Medical History Cancer, COPD, Diabetes, Hypertension SOCIAL HISTORY: -SMOKED IN PAST -DENIES ETOH -DENIES DRUG USE PAST SURGICAL HISTORY: -LEFT HIP FRACTURE WITH HIP REPLACEMENT 06/2021 - -CHOLECYSTECTOMY -TONSILLECTOMY -BREAST BIOPSY -HYSTERECTOMY / BILATERAL SALPINGO-OOPHORECTOMY, WITH ANTERIOR AND POSTERIOR REPAIR [address] HERNANDEZ -CARDIAC CATH 2016--NO INTERVENTION -LINQ DEVICE IMPLANTED 10/2021 -STENT IN LEFT CAROTID -EGD / COLONOSCOPY WITH PYLORIC POLYP REMOVAL AND COLON POLYP REMOVAL X [address] 11/[address] MURRAY. Physical Exam Vital Signs Vital Signs - First Documented 03/17/23 19:54 Temp 37.3 Pulse 82 Resp 20 B/P (MAP) 175/87 (116) Pulse Ox 97 O2 Delivery Nasal Cannula O2 Flow Rate 3.00 Capillary Refill : Height, Weight, BMI Height: 5'4.00" Weight: 188lbs. 0.0oz. 85.109271hm; 30.00 BMI Method:Stated General Appearance: WD/WN, no apparent distress, other (DOES NOT APPEAR ILL OR TO BE IN ANY DISCOMFORT OR DISTRESS) HEENT: PERRL/EOMI, other (EDENTULOUS. LEFT FACIAL DROOP. FOREHEAD APPEARS SPARED. ) Neck: normal inspection; No carotid bruit Respiratory: normal breath sounds, no respiratory distress, no accessory muscle use Cardiovascular: regular rate, rhythm, no murmur Peripheral Pulses: 1+ Dorsalis Pedis (R), 1+ Left Dors-Pedis (L), 1+ Radial Pulses (R), 1+ Radial Pulses (L) Gastrointestinal: non tender, soft Extremities: normal inspection, no pedal edema, normal capillary refill Neurologic/Psychiatric: alert, normal mood/affect; No aphasia; facial droop (LEFT), other (NO SENSORY DEFICIT TO FACE. PT IS ABLE TO OPEN AND CLOSE EYES. NO MOTOR/SENSORY DEFICITS TO ARMS OR LEGS. PT IS BASELINE MENTAL STATUS WITH DEMENTIA. SHE CAN FOLLOW SIMPLE COMMANDS, BUT HAS DIFFICULTY FOLLOWING COMPLEX COMMANDS. NO GROSS COORDINATION DEFICITS. SHE IS NOT ABLE TO RAISE LEFT LEG DUE TO CHRONIC LEFT HIP PAIN WITH HX OF LEFT HIP FRACTURE. DISTALLY SHE IS INTACT AND IS ABLE TO LIFT HER LEFT FOOT AND BEND AT KNEE. MOTOR, SENSORY AND VASCULAR IS INTACT IN ALL EXTREMITIES. FOOT STRENGTH IS EQUAL BILATERALLY. SOYBEAN SPECIALTIES COOK ARE EQUAL BILATERALLY. ) Crainal Nerves: normal speech (NO SLURRED SPEECH OR DIFFICULTY FINDING WORDS OR STUTTERING. ), PERRL, facial droop (BUT DIFFICULTY FOLLOWING COMMANDS FOR FACIAL EXPRESSIONS/FACIAL MOVMENTS. ); No facial paresthesias, No gaze palsy; other (HARD OF HEARING IS NORMAL BASELINE; NO PROBLEMS HANDLING SECRETIONS. NO THROAT CLEARING, ETC. ) Coordination/Gait: other (PT IS ABLE TO DO FINGER TO NOSE, BUT DOES NOT ALTERNATE HANDS--DIFFICULTY FOLLOWING THAT COMPLEX COMMAND. GAIT NOT TESTED. ) Motor/Sensory: No pronator drift (R), No pronator drift (L), No sensory deficit; other ( ABOVE) Skin: normal color, warm/dry; No ecchymosis Stroke Onset of Symptoms Onset of Symptoms: No Symptoms onset unknown: Yes NIH Stroke Scale Assessment Select: Initial Level of Consciousness: 0=Alert (0), Level of Consciousness- Questions: 0=Answers both month/age (0), LOC Commands: 0=Performs both tasks (0), Gaze: Normal (0), Visual [place]: 0=No visual loss (0), Facial Movement (Facial Paresis): 2=Partial paralysis (2), Motor Function-Arms Right: 0=No drift (0), Motor Function-Arms Left: 0=No drift (0), Motor Function-Legs Right: 0=No drift (0), Motor Function-Legs Left: 0=No drift (0), Limb Ataxia: 0=Absent (0), Sensory: 0=Normal:no loss (0), Best Language: 0=No aphasia (0), Dysarthria: 0=Normal (0), Extinction & Inattention: 0=No abnormality (0), Total: 2 Stroke Thrombolytic Exclusion Age 18 or Over: Yes Acute intenal hemorrhage: No History of CVA: No Uncontrolled Coagulation Defec: No Intracranial Hemorrhage: No Severe Hypertension: No GI or Bleed: No Subarachnoid Hemorrhage: No Intracranial Neoplasm/Aneurysm: No Oral Anticoagulants: Yes Surgery or Trauma: No Puncture of Non-Compressible V: No Recent CPR: No Diabetic Hemorrhagic Retinopat: No Organ Biopsy: No Recent Obstetric Delivery: No Glucose: No Significant Hepatic Dysfunctio: No NIH Stoke Scale >22: No Bacterial Endocarditis: No Pericarditis: No Improving Symptoms: No Platelets: No IV - TPa Received IV - TPa Procedure Performed?: No (ONSET UNKNOWN. LOW NIH) Focused Exam Lactate Level 03/17/23 20:45: Lactic Acid Level 1.30 Lactic Acid Level Laboratory Tests Test 03/17/23 20:45 Lactic Acid Level 1.30 MMOL/L (0.50-2.00) Procedures/Interventions Suture Size: 5-0 Progress/Results/Core Measures Results/Orders Lab Results Laboratory Tests Test 03/17/23 19:58 03/17/23 20:00 03/17/23 20:45 03/17/23 21:05 Range/Units White Blood Count 5.0 4.3-11.0 10^3/uL Red Blood Count 3.45 L 3.80-5.11 10^6/uL Hemoglobin 10.1 L 11.5-16.0 g/dL Hematocrit 34 L 35-52 % Mean Corpuscular Volume 99 80-99 fL Mean Corpuscular Hemoglobin 29 25-34 pg Mean Corpuscular Hemoglobin Concent 30 L 32-36 g/dL Red Cell Distribution Width 14.5 10.0-14.5 % Platelet Count 142 130-400 10^3/uL Mean Platelet Volume 10.8 9.0-12.2 fL Immature Granulocyte % (Auto) 0 % Neutrophils (%) (Auto) 67 42-75 % Lymphocytes (%) (Auto) 24 12-44 % Monocytes (%) (Auto) 6 0-12 % Eosinophils (%) (Auto) 2 0-10 % Basophils (%) (Auto) 0 0-10 % Neutrophils # (Auto) 3.4 1.8-7.8 10^3/uL Lymphocytes # (Auto) 1.2 1.0-4.0 10^3/uL Monocytes # (Auto) 0.3 0.0-1.0 10^3/uL Eosinophils # (Auto) 0.1 0.0-0.3 10^3/uL Basophils # (Auto) 0.0 0.0-0.1 10^3/uL Immature Granulocyte # (Auto) 0.0 0.0-0.1 10^3/uL Percent Immature Platelet Fraction 5.8 0.0-7.6 % Prothrombin Time 15.4 H 12.2-14.7 SEC INR Comment 1.2 0.8-1.4 Activated Partial Thromboplast Time 32 24-35 SEC D-Dimer < 0.27 0.00-0.49 UG/ML Sodium Level 143 135-145 MMOL/L Potassium Level 3.8 3.6-5.0 MMOL/L Chloride Level 99 98-107 MMOL/L Carbon Dioxide Level 32 21-32 MMOL/L Anion Gap 12 5-14 MMOL/L Blood Urea Nitrogen 18 7-18 MG/DL Creatinine 0.85 0.60-1.30 MG/DL Estimat Glomerular Filtration Rate 68 BUN/Creatinine Ratio 21 Glucose Level 164 H 70-105 MG/DL Calcium Level 9.0 8.5-10.1 MG/DL Corrected Calcium 9.2 8.5-10.1 MG/DL Total Bilirubin 0.4 0.1-1.0 MG/DL Aspartate Amino Transf (AST/SGOT) 17 5-34 U/L Alanine Aminotransferase (ALT/SGPT) 12 0-55 U/L Alkaline Phosphatase 83 40-136 U/L Troponin I < 0.028 <0.028 NG/ML Total Protein 6.5 6.4-8.2 GM/DL Albumin 3.8 3.2-4.5 GM/DL Glucometer 152 H 70-110 MG/DL Lactic Acid Level 1.30 0.50-2.00 MMOL/L Influenza Type A (RT-PCR) Not Detected Not Detecte Influenza Type B (RT-PCR) Not Detected Not Detecte SARS-CoV-2 RNA (RT-PCR) Not Detected Not Detecte Test 03/17/23 21:15 Range/Units Urine Color YELLOW Urine Clarity CLEAR Urine pH 7.0 5-9 Urine Specific [place] 1.015 L 1.016-1.022 Urine Protein NEGATIVE NEGATIVE Urine Glucose (UA) NEGATIVE NEGATIVE Urine Ketones NEGATIVE NEGATIVE Urine Nitrite POSITIVE H NEGATIVE Urine Bilirubin NEGATIVE NEGATIVE Urine Urobilinogen 1.0 < = 1.0 MG/DL Urine Leukocyte Esterase TRACE H NEGATIVE Urine RBC (Auto) NEGATIVE NEGATIVE Urine RBC 0-2 /HPF Urine WBC 5-10 H /HPF Urine Crystals NONE /LPF Urine Bacteria LARGE H /HPF Urine Casts PRESENT /LPF Urine Hyaline Casts 0-2 H /LPF Urine Mucus NEGATIVE /LPF Urine Culture Indicated CULTURE PENDING Micro Results Microbiology 03/17/23 Urine Culture - Preliminary, Resulted Probable E.coli 03/17/23 Blood Culture - Preliminary, Resulted No growth 03/17/23 Blood Culture - Preliminary, Resulted Gram Positive Cocci in Cluster Gram Positive Cocci in Chains See Comments My Orders Orders - ANDREW LOPEZ DO Cbc With Automated Diff (03/17/23 19:54) Protime With Inr (03/17/23 19:54) Partial Thromboplastin Time (03/17/23 19:54) Comprehensive Metabolic Panel (03/17/23 19:54) Fibrin Degradation Products (03/17/23 19:54) Troponin I [place] (03/17/23 19:54) Chest 1 View, Ap/Pa Only (03/17/23 19:54) Catheter(Urinary) Insert & Ass 03,15 (03/17/23 19:54) Ekg Tracing (03/17/23 19:54) Accucheck Stat ONCE (03/17/23 19:54) Ed Iv/Invasive Line Start (03/17/23 19:54) Ed Iv/Invasive Line Start (03/17/23 19:54) Vital Signs Stroke Patient Q15M (03/17/23 19:54) Ct Head Wo-R/O Stroke (03/17/23 19:54) O2 (03/17/23 19:54) Intake & Output 06,14,22 (03/17/23 19:54) Monitor-Rhythm Ecg Trace Only (03/17/23 19:54) Dysphagia Screening Tool Q10MX1 (03/17/23 19:54) Lipid Panel (03/18/23 06:00) Lidocaine 2% (Urojet) (Lidocaine 2% (Uro (03/17/23 20:00) Covid 19 Inhouse Test (03/17/23 20:00) Blood Culture (03/17/23 20:00) Urinalysis (03/17/23 20:00) Urine Culture (03/17/23 20:00) Ed Iv/Invasive Line Start (03/17/23 20:00) Ed Iv/Invasive Line Start (03/17/23 20:00) Vital Signs Adult Sepsis Patie Q15M (03/17/23 20:00) O2 (03/17/23 20:00) Lactic Acid Analyzer (03/17/23 20:00) Influenza A And B By Pcr (03/17/23 20:00) Ct Angio Head/Neck (03/17/23 20:32) Iohexol Injection (Omnipaque 350 Mg/Ml 1 (03/17/23 20:45) Received Contrast (Hold Metformin- Contr (03/17/23 20:45) Ns (Ivpb) 100 Ml (Sodium Chloride 0.9% 1 (03/17/23 20:45) Ed Admission (Communication) (03/17/23 21:34) Ceftriaxone Iv/Im (Ceftriaxone Iv/Im) (8/26/23 22:00) Medications Given in ED Vital Signs/I&O 03/17/23 19:54 Temp 37.3 Pulse 82 Resp 20 B/P (MAP) 175/87 (116) Pulse Ox 97 O2 Delivery Nasal Cannula O2 Flow Rate 3.00 03/18/23 00:00 Intake Total 50 ml Balance 50 ml FSBG Bedside Testing Finger Stick Blood Glucose: 152 Progress Progress Note : Progress Note STROKE ACTIVATION ON ARRIVAL VITALS ON ARRIVAL: TEMP 37.3=99.2, HR 82, RR 20, BP 175/87, O2 SAT 97% ON ROOM AIR NO DETERIORATION IN PT'S CONDITION DURING ER STAY PT WITH NIH OF 2 DUE TO FACIAL DROOP, WITHOUT ANY OTHER NEUROLOGICAL DEFICITS THERE IS NO VASCULAR OCCLUSION/THROMBUS BASED ON LAST KNOW WELL TIME, PT IS OUTSIDE TREATMENT WINDOW FOR ANY THROMBOLYTICS, AND PT IS ALREADY ON PLAVIX + ELIQUIS FOR CHRONIC ANTICOAGULATION. LABS: -CBC WITH HGB 10.1, OTHERWISE NORMAL--PT WITH CHRONIC ANEMIA AND THIS IS IN NOR MAL RANGE FOR PT'S HGB -CMP WITH GLUCOSE 164, OTHERWISE NORMAL -LACTIC ACID 1.3 -PT/PTT/INR 15.4/32/1.2 -D-DIMER NEGATIVE -UA WITH + NITRITES, TRACE LEUKOCYTES, 5-10 WBC, LARGE BACTERIA ( CATH SPECIMEN) -COVID/FLU NEGATIVE EKG UNCHANGED CXR UNREMARKABLE CT HEAD PLAIN AND ANGIOGRAM HEAD/NECK DO NOT SHOW ANY EVIDENCE OF ACUTE INFARCT, BLEED, OR OCCLUSION/THROMBUS DISCUSSED TEST RESULTS, NEED FOR ADMIT AND PT AND GRAND DAUGHTER ARE AGREEABLE TO PLAN REVIEWED PRIOR RECORDS, INCLUDING ER VISITS, ADMITS/H&P'S/CONSULTS/DISCHARGE SUMMARIES, TESTS/ PROCEDURES Initial ECG Impression Date: Mar 17, 2023 Initial ECG Impression Time: 20:17 Initial ECG Rate: 76 Initial ECG Rhythm: Normal Sinus (LBBB) Initial ECG Intervals MA 147 QRS 172 QT/QTC 414/444 Initial ECG Comparisson: Unchanged Comment INTERPRETED BY ME Diagnostic Imaging Comments CXR--PER RADIOLOGIST REPORT Findings: No focal airspace disease in the visualized lungs. No pleural effusion or pneumothorax. Normal cardiomediastinal silhouette. Impression: 1. No acute cardiopulmonary process by portable radiography. CT HEAD--PER RADIOLOGIST REPORT AT 2030 COMPARISON: 11/08/2021. FINDINGS: No intracranial hyperdense hemorrhage or space-occupying mass. No hydrocephalus or midline shift. No hyperdense vessel sign. Louie-white matter differentiation is well-preserved. Basilar cisterns are patent. Periventricular hypoattenuation is most compatible chronic microvascular ischemic change. No skull fracture. Paranasal sinuses and mastoid air cells are clear. IMPRESSION: 1. No acute hemorrhage or large territorial infarct. CT ANGIOGRAM HEAD/NECK--PER RADIOLOGIST REPORT AT 2127 FINDINGS: Visualized portions of the aorta without dissection. The bilateral common carotid arteries are normal. There is a stent within the right proximal internal carotid artery which remains patent and has no in-stent stenosis. No stenosis of the proximal left internal carotid artery per NASCET criteria. The cervical division of the left ICA is patent. Right ICA cervical division is also patent. The vertebral arteries are codominant and widely patent throughout the neck. No vertebral artery dissection. Distal internal carotid arteries are patent with atherosclerotic plaquing but no high-grade stenosis or aneurysm. M1 and M2 divisions of the middle cerebral arteries are patent. The anterior cerebral arteries are patent. No anterior communicating artery aneurysm. Basilar artery is widely patent without terminal aneurysm. Posterior cerebral arteries are patent. The dural venous sinuses are patent. No pathologic enhancement on delayed phase imaging. No concerning abnormality in the cervical spine. There is no cervical lymphadenopathy. Bilateral cataract surgery has been performed. The visible lung apices are clear. IMPRESSION: 1. No intracranial large vessel occlusion or saccular aneurysm. 2. Dural venous sinuses are patent. 3. The right proximal internal carotid artery stent is patent without stenosis. Left ICA origin also has no stenosis. 4. Bilateral vertebral arteries are patent. Reviewed: Reviewed by [facility] Departure Communication (Admissions) 2003--SPOKE WITH DR. LENTZ, SHE WILL PLAN ON ADMITTING PT. WILL CALL HER BACK WHEN ALL RESULTS ARE BACK 2128--SPOKE WITH DR. LENTZ, HOSPITALIST FOR [facility], ACCEPTS PT FOR ADMIT. SHE WILL DO ADMIT ORDERS Impression Primary Impression: TIA VS CVA VS BLANKENSHIP'S PALSY Additional Impressions: HTN (hypertension) UTI (urinary tract infection) Dementia Hx of completed stroke History of right common carotid artery stent placement COPD History of atrial fibrillation Disposition: ADMITTED INPATIENT Condition: Stable Admissions Decision to Admit Reason: Admit from ER (General) Decision to Admit/Date: Mar 17, 2023 Time/Decision to Admit Time: 21:30 Departure-Patient Inst. Referrals: ELZA FERGUSON DO (PCP/Family) Primary Care Physician ANDREW LOPEZ DO Mar 17, 2023 20:31
--- NOTE | 2023-03-17 20:31 | Diagnostic Imaging Report ---
CHEST 1 VIEW, AP/PA ONLY Indication: Strokelike symptoms. Neuro deficits. Comparison: 01/19/2023 Findings: No focal airspace disease in the visualized lungs. No pleural effusion or pneumothorax. Normal cardiomediastinal silhouette. Impression: 1. No acute cardiopulmonary process by portable radiography. Dictated by: Dictated on workstation # [id number]
[2023-03-17 20:34] LABS: PARTIAL THROMBOPLASTIN TIME 32 SEC (24-35)
[2023-03-17 20:35] LABS: FIBRIN DEGRADATION PRODUCTS < 0.27 UG/ML (0.00-0.49)
[2023-03-17] MEDS ORDERED: HOLD METFORMIN - RECEIVED CONTRAST 20 ML VIAL IV SCH (20:45)
[2023-03-17] MEDS ORDERED: NS 100 ML (IVPB) BAG IV ONE (20:45)
[2023-03-17] MEDS ORDERED: IOHEXOL 350 MG/ML 100 ML (OMNIPAQUE 350) VIAL IV ONE (20:45)
--- NOTE | 2023-03-17 21:25 | Diagnostic Imaging Report ---
PROCEDURE: CT angiography of the head and CT angiography of the neck with and without contrast. TECHNIQUE: Contiguous noncontrast images were obtained from the skull base through the vertex. After intravenous contrast administration, helical CT angiography of the neck was performed. Source data was reformatted into 3D MIP projections. Delayed post contrast acquisition was also obtained. Auto Exposure Controls were utilized during the CT exam to meet ALARA standards for radiation dose reduction. INDICATION: Left-sided facial droop. COMPARISON: Noncontrast head performed earlier the same day. FINDINGS: Visualized portions of the aorta without dissection. The bilateral common carotid arteries are normal. There is a stent within the right proximal internal carotid artery which remains patent and has no in-stent stenosis. No stenosis of the proximal left internal carotid artery per NASCET criteria. The cervical division of the left ICA is patent. Right ICA cervical division is also patent. The vertebral arteries are codominant and widely patent throughout the neck. No vertebral artery dissection. Distal internal carotid arteries are patent with atherosclerotic plaquing but no high-grade stenosis or aneurysm. M1 and M2 divisions of the middle cerebral arteries are patent. The anterior cerebral arteries are patent. No anterior communicating artery aneurysm. Basilar artery is widely patent without terminal aneurysm. Posterior cerebral arteries are patent. The dural venous sinuses are patent. No pathologic enhancement on delayed phase imaging. No concerning abnormality in the cervical spine. There is no cervical lymphadenopathy. Bilateral cataract surgery has been performed. The visible lung apices are clear. IMPRESSION: 1. No intracranial large vessel occlusion or saccular aneurysm. 2. Dural venous sinuses are patent. 3. The right proximal internal carotid artery stent is patent without stenosis. Left ICA origin also has no stenosis. 4. Bilateral vertebral arteries are patent. Dictated by: Dictated on workstation # [id number]
[2023-03-17 21:29] LABS: BILIRUBIN,URINE NEGATIVE (NEGATIVE); CLARITY,URINE CLEAR; COLOR,URINE YELLOW; GLUCOSE, URINE (UA) NEGATIVE (NEGATIVE); KETONES,URINE NEGATIVE (NEGATIVE); NITRITE,URINE POSITIVE (NEGATIVE); PROTEIN,URINE NEGATIVE (NEGATIVE)
[2023-03-17 21:30] LABS: LEUKOCYTE ESTERASE ,URINE TRACE (NEGATIVE)
[2023-03-17 21:32] LABS: BACTERIA,URINE LARGE /HPF; HYALINE CASTS, URINE 0-2 /LPF; RBC,URINE 0-2 /HPF
[2023-03-17] MEDS ORDERED: cefTRIAXone IV/IM 1,000 MG in NS (IVPB) 50 ML 50 ML IV ONE (22:00)
[2023-03-17] MEDS ORDERED: CALCIUM CARBONATE 500 MG CHEW TABLET PO PRN (22:45)
[2023-03-17] MEDS ORDERED: ONDANSETRON INJECTION 4 MG/2 ML (SDV) IV PRN (22:45)
[2023-03-17] MEDS ORDERED: oxyCODONE IMMEDIATE RELEASE 5 MG TABLET PO PRN (22:45)
[2023-03-17] MEDS ORDERED: ACETAMINOPHEN 325 MG TABLET PO PRN (22:45)
[2023-03-17] MEDS ORDERED: MILK OF MAGNESIA 400 MG/5 ML 30 ML UDC PO PRN (22:45)
[2023-03-17] MEDS ORDERED: ANTACID SUSPENSION 30 ML UDC PO PRN (22:45)
[2023-03-17] MEDS ORDERED: NS IV 500 ML 500 ML IV PRN (22:45)
[2023-03-17] MEDS ORDERED: LACTULOSE SYRUP 10GM/15ML 30ML UDC PO PRN (22:45)
[2023-03-17] MEDS ORDERED: NS IV 1000 ML 1,000 ML IV SCH (22:45)
[2023-03-17] MEDS ORDERED: ALPRAZolam 1 MG TABLET PO PRN (22:45)
[2023-03-17] MEDS ORDERED: ONDANSETRON 4 MG ORAL DISSOLVE TABLET PO PRN (22:45)
[2023-03-17] MEDS ORDERED: BISACODYL 10 MG SUPPOSITORY PR PRN (22:45)
[2023-03-17] MEDS ORDERED: morphine INJ 4 MG/ML 1 ML (VIAL/SYRINGE) IV PRN (22:45)
[2023-03-17] MEDS ORDERED: MELATONIN 3 MG TABLET PO PRN (22:45)
[2023-03-17 23:00] VITALS: BP 166/87
[2023-03-17 23:18] VITALS: BP 166/87
[2023-03-17] MEDS ORDERED: RT-Ipratropium/Albuterol NEB 3 ML VIAL INH PRN (23:30)
[2023-03-18] VITALS (9 sets, daily range): BP systolic 134–183; BP diastolic 60–98
[2023-03-18 04:55] LABS: BASOPHILS % (AUTO) 0 % (0-10); HEMOGLOBIN 9.1 g/dL (11.5-16.0)
[2023-03-18 04:57] LABS: EOSINOPHILS # (AUTO) 0.1 10^3/uL (0.0-0.3); EOSINOPHILS % (AUTO) 3 % (0-10); HEMATOCRIT 31 % (35-52); LYMPHOCYTES # (AUTO) 1.2 10^3/uL (1.0-4.0); LYMPHOCYTES % (AUTO) 25 % (12-44); MEAN CORPUSCULAR HEMOGLOBIN 29 pg (25-34); MEAN CORPUSCULAR HGB CONC 30 g/dL (32-36); MEAN CORPUSCULAR VOLUME 98 fL (80-99); MEAN PLATELET VOLUME 11.5 fL (9.0-12.2); MONOCYTES # (AUTO) 0.4 10^3/uL (0.0-1.0); MONOCYTES % (AUTO) 9 % (0-12); NEUTROPHILS # (AUTO) 2.9 10^3/uL (1.8-7.8); NEUTROPHILS % (AUTO) 63 % (42-75); PLATELET COUNT 113 10^3/uL (130-400); WHITE BLOOD COUNT 4.7 10^3/uL (4.3-11.0)
[2023-03-18 05:12] LABS: ALBUMIN 3.5 GM/DL (3.2-4.5); POTASSIUM 3.7 MMOL/L (3.6-5.0)
[2023-03-18 05:13] LABS: CALCIUM 8.8 MG/DL (8.5-10.1)
[2023-03-18 05:16] LABS: BILIRUBIN,TOTAL 0.3 MG/DL (0.1-1.0)
[2023-03-18 05:18] LABS: CREATININE SERUM 0.77 MG/DL (0.60-1.30); PHOSPHORUS 3.3 MG/DL (2.3-4.7)
[2023-03-18 05:21] LABS: MAGNESIUM 1.8 MG/DL (1.6-2.4)
[2023-03-18] MEDS ORDERED: MAGNESIUM 2 GM/50 ML IVPB 50 ML IV ONE (05:30)
[2023-03-18] MEDS: MAGNESIUM 1 GM/100 ML IVPB 100 ML IV SCH ×2 (05:45→06:37)
[2023-03-18] MEDS ORDERED: MAGNESIUM 1 GM/100 ML IVPB 100 ML IV SCH (06:00)
[2023-03-18] MEDS ORDERED: POTASSIUM CL 10MEQ/50ML IVPB 50 ML IV SCH (06:00)
[2023-03-18] MEDS ORDERED: POTASSIUM CHLORIDE 20 MEQ TABLET PO SCH (06:00)
--- NOTE | 2023-03-18 06:18 | Short Stay Summary-Hospitalist ---
History of Present Illness HPI/Chief Complaint Chief complaint: Possible CVA HPI: This is an 82-year-old female who has a past medical history of COPD and CAD and A-fib who presented to the ER with facial drooping and unable to speak normally. I have taking care of her in the senior behavioral unit for dementia related issues. She continues to have left facial droop and will be assessed for further neurological deficits but there appears to be no other. I have reviewed meds and labs and will maintain on telemetry and obtain MRI in the morning. Source: patient, family, old records Exam Limitations: no limitations Date Seen 03/18/23 Time Seen by a Provider: 11:00 Attending Physician Jae Vences DO PCP Admitting Physician: Maya Lentz DO Attending Physician: Maya Lentz DO Referring Physician Date of Admission Mar 17, 2023 at 22:42 Home Medications & Allergies Home Medications Reviewed patient Home Medication Reconciliation performed by pharmacy medication reconciliations computer engineering technician and/or nursing. Patients Allergies have been reviewed. Allergies Allergies Coded Allergies cortisone (Verified Allergy, Unknown, 03/17/23) diphenhydramine (Verified Allergy, Unknown, 03/17/23) penicillin G (Verified Allergy, Unknown, 03/17/23) The patient is unaware that she has a penicillin allergy. She does not remember ever taking it and if she did what the reaction was. It has not been recently. Past Qbosdjo-Mgwiwk-Jliwxp Hx Patient Social History Marrital Status: single Employed/Student: retired Tobacco Use?: No Smoking Status: Former Smoker Use of E-Cig and/or Vaping dev: No Substance use?: No Alcohol Use?: No Pt feels they are or have been: No Immunizations Up To Date Date of Influenza Vaccine: Apr 22, 2020 First/Initial COVID19 Vaccinat: RECEIVED, UNK WHEN Second COVID19 Vaccination Taurus: RECEIVED, UNK WHEN Tetanus Booster (TDap): Unknown PED Vaccines UTD: Yes Date of Pneumonia Vaccine: Mar 23, 2016 Seasonal Allergies Seasonal Allergies: Yes Current Status status: No status: No Advance Directives: No Communicates: Verbally Primary Language: Malagasy Preferred Spoken Language: Malagasy Sensory deficits: Hearing impairment Implanted or Applied Medical D: Stents Past Medical History Surgeries: Section, Gallbladder, Hysterectomy, Oophorectomy, Orthopedic, Tonsillectomy Pneumonia, COPD Atrial Fibrillation, High Cholesterol, Hypertension, Valvular Heart Disease Dementia, Stroke Sexually Transmitted Disease: No UTI-Chronic Gastroesophageal Reflux Arthritis, Fractures Hearing Impairment: Hard of Hearing Blood Disorders: Yes (ANEMIA) Adverse Reaction/Blood Tranf: No PMHx: HTN CHF SurgHx: Cholecystectomy C section Hysterectomy Breast biopsy Family Medical History Cancer, COPD, Diabetes, Hypertension SOCIAL HISTORY: -SMOKED IN PAST -DENIES ETOH -DENIES DRUG USE PAST SURGICAL HISTORY: -LEFT HIP FRACTURE WITH HIP REPLACEMENT 06/2021 - -CHOLECYSTECTOMY -TONSILLECTOMY -BREAST BIOPSY -HYSTERECTOMY / BILATERAL SALPINGO-OOPHORECTOMY, WITH ANTERIOR AND POSTERIOR REPAIR [address] HERNANDEZ -CARDIAC CATH 2016--NO INTERVENTION -LINQ DEVICE IMPLANTED 10/2021 -STENT IN LEFT CAROTID -EGD / COLONOSCOPY WITH PYLORIC POLYP REMOVAL AND COLON POLYP REMOVAL X [address] 11/[address] MURRAY. Review of Systems Constitutional: see HPI, malaise, weakness EENTM: no symptoms reported Respiratory: no symptoms reported Cardiovascular: no symptoms reported Gastrointestinal: no symptoms reported Genitourinary: no symptoms reported Musculoskeletal: no symptoms reported Skin: no symptoms reported Psychiatric/Neurological: Depressed, Weakness All Other Systems Reviewed Negative Unless Noted: Yes Physical Exam Physical Exam Vital Signs Vital Signs - First Documented 03/17/23 19:54 Temp 37.3 Pulse 82 Resp 20 B/P (MAP) 175/87 (116) Pulse Ox 97 O2 Delivery Nasal Cannula O2 Flow Rate 3.00 Capillary Refill : Height, Weight, BMI Height: 5'4.00" Weight: 188lbs. 0.0oz. 85.264927iw; 31.12 BMI Method:Stated General Appearance: No Apparent Distress, WD/WN, Chronically ill Eyes: Bilateral Eye Normal Inspection, Bilateral Eye PERRL HEENT: PERRL/EOMI, Normal ENT Inspection, Pharynx Normal Neck: Full Range of Motion, Normal Inspection, Non Tender, Supple, Carotid Bruit Respiratory: Chest Non Tender, Lungs Clear, Normal Breath Sounds, No Accessory Muscle Use, No Respiratory Distress Cardiovascular: Regular Rate, Rhythm, No Edema, No Gallop, No JVD, No Murmur, Normal Peripheral Pulses Gastrointestinal: Normal Bowel Sounds, No Organomegaly, No Pulsatile Mass, Non Tender, Soft Back: Normal Inspection, No CVA Tenderness, No Vertebral Tenderness Extremity: Normal Capillary Refill, Normal Inspection, Normal Range of Motion, Non Tender, No Calf Tenderness, No Pedal Edema Neurologic/Psychiatric: Alert, No Motor/Sensory Deficits, bowl sander II-XII Norm as Tested, Depressed Affect, Disoriented, Facial Droop (Left-sided) Skin: Normal Color, Warm/Dry Lymphatic: No Adenopathy Results Results/Procedures Labs Laboratory Tests 03/17/23 19:58 03/18/23 04:14 Patient resulted labs reviewed. Short Stay Diagnosis Discharge Diagnosis-Short Stay Admission Diagnosis Assessment: Possible CVA with left-sided facial droop Dementia COPD Atrial fibrillation Hypertension Hyperlipidemia Former smoker Advanced age Plan: Supportive care Monitor closely Fall risk MRI tomorrow Lipid panel Statin Aspirin Oral anticoagulation Final Discharge Diagnosis Assessment: Possible CVA with left-sided facial droop Dementia COPD Atrial fibrillation Hypertension Hyperlipidemia Former smoker Advanced age Plan: Supportive care Monitor closely Fall risk MRI tomorrow Lipid panel Statin Aspirin Oral anticoagulation Conclusion Plan MRI tomorrow Clinical Quality Measures Stroke: Symptoms onset unknown: Yes MAYA LENTZ DO Mar 18, 2023 06:18
[2023-03-18] MEDS: RT-Ipratropium/Albuterol NEB 3 ML VIAL INH SCH ×2 (08:31→20:19)
[2023-03-18] MEDS: ASPIRIN enteric coated 81MG TABLET PO SCH (08:49)
[2023-03-18] MEDS ORDERED: POTASSIUM CHLORIDE 20 MEQ TABLET PO ONE (09:00)
[2023-03-18] MEDS ORDERED: CLOPIDOGREL 75 MG TABLET PO SCH (09:00)
[2023-03-18] MEDS ORDERED: APIXABAN 5 MG TABLET PO SCH (09:00)
[2023-03-18] MEDS: SENNOSIDES 8.6 MG TABLET PO SCH ×2 (09:10→20:37)
[2023-03-18] MEDS: DOCUSATE SODIUM 100 MG CAPSULE PO SCH ×2 (09:10→20:37)
--- NOTE | 2023-03-18 09:44 | Diagnostic Imaging Report ---
Indication: CVA. Time of Exam: 5:52 AM Correlation is made with prior chest from 03/17/2023. Heart is enlarged and stable. There is some atelectasis in the left base. Right lung is clear. There is no significant effusion or pneumothorax. Impression: Cardiomegaly and left basilar subsegmental atelectasis. Dictated by: Dictated on workstation # [id number]
[2023-03-18] MEDS ORDERED: FLUT100B3 IH (15:59)
[2023-03-18] MEDS ORDERED: ALBU0.63 IH (15:59)
[2023-03-18] MEDS ORDERED: NYST15CR36 TP (15:59)
[2023-03-18] MEDS ORDERED: UMEC62.5 IH (15:59)
[2023-03-18] MEDS ORDERED: DICLOFENAC 1% GEL 100 GM TUBE TOP PRN (16:30)
--- NOTE | 2023-03-18 17:21 | Consultation-Cardiology ---
HPI-Cardiology Cardiology Consultation: Date of Consultation 03/18/23 Date of Admission Attending Physician Elza Vences DO Admitting Physician Admitting Physician: Maya Hoskins DO Attending Physician: Maya Hoskins DO Consulting Physician Jose GARCIA MD HPI: Time Seen by a Provider: 15:00 Chief Complaint: Possible TIA This is a 82-year-old lady with previous history of carotid disease, carotid stenting. Presents with possible TIA like symptoms. Follows with Dr. Thomas. Review of Systems-Cardiology Review of Systems Constitutional: no symptoms reported Eyes: no symptoms reported Ears/Nose/Throat: no symptoms reported Respiratory: no symptoms reported Cardiovascular: no symptoms reported Psychiatric/Neurological: As described under HPI All Other Systems Reviewed Negative Unless Noted: Yes XGR-Owlxiq-Kozhnv Hx Patient Social History Marrital Status: single Employed/Student: retired Smoking Status: Former Smoker 2nd Hand Smoke Exposure: Yes Alcohol Use?: No Pt feels they are or have been: No Immunizations Up To Date Tetanus Booster (TDap): Less than 5yrs Date of Pneumonia Vaccine: Mar 23, 2016 Date of Influenza Vaccine: Apr 22, 2020 Past Medical History PMH As described under Assessment. Family Medical History Family Medical History: No reported family h/o CAD. Allergies and Home Medications Allergies Coded Allergies: cortisone (Verified Allergy, Unknown, 03/17/23) diphenhydramine (Verified Allergy, Unknown, 03/17/23) penicillin G (Verified Allergy, Unknown, 03/17/23) The patient is unaware that she has a penicillin allergy. She does not remember ever taking it and if she did what the reaction was. It has not been recently. Patient Home Medication List Home Medication List Reviewed: Yes Albuterol Sulfate (Albuterol Sulfate) 0.63 Mg/3 Ml Vial.neb, 0.63 MG IH for SHORTNESS OF BREATH, (Reported) Entered as Reported by: GURWINDER MEYER on 03/18/23 1109 Last Action: New Order Amlodipine Besylate (Amlodipine Besylate) 10 Mg Tablet, 10 MG PO DAILY Prescribed by: MAC LINDSEY on 09/07/22 1201 Last Action: Continued Apixaban (Eliquis) 5 Mg Tablet, 5 MG PO BID, (Reported) Entered as Reported by: LILA DOVER on 03/20/22 0940 Last Action: Continued Atorvastatin Calcium (Atorvastatin Calcium) 20 Mg Tablet, 20 MG PO DAILY, (Reported) Entered as Reported by: ELZA AGUILAR on 10/11/211541 Last Action: Continued Clopidogrel Bisulfate (Clopidogrel) 75 Mg Tablet, 75 MG PO DAILY, (Reported) Entered as Reported by: LILA DOVER on 03/20/22 3069 Last Action: Continued Diclofenac Sodium (Diclofenac Sodium) 1 % Gel..gram., 1 APPLIC TOP QID PRN for PAIN-BREAKTHROUGH, (Reported) Entered as Reported by: ELZA AGUILAR on 11/09/211111 Last Action: Continued Fluticasone Propionate (Flovent Diskus 100 mcg) 100 Mcg Blst.w.dev, 100 MCG IH DAILY PRN for SHORTNESS OF BREATH, (Reported) Entered as Reported by: GURWINDER MEYER on 03/18/231558 Last Action: New Order Lisinopril (Lisinopril) 40 Mg Tablet, 40 MG PO DAILY, (Reported) Entered as Reported by: ELZA AGUILAR on 10/11/211541 Last Action: Continued Melatonin (Melatonin) 10 Mg Tablet, 10 MG PO HS, (Reported) Entered as Reported by: ELZA AGUILAR on 11/09/211111 Last Action: Continued Metoclopramide HCl (Metoclopramide HCl) 10 Mg Tablet, 10 MG PO BID, (Reported) Entered as Reported by: ELZA AGUILAR on 10/11/211541 Last Action: Continued Metoprolol Succinate (Metoprolol Succinate) 50 Mg Tab.er.24h, 50 MG PO DAILY, (Reported) Entered as Reported by: ELZA AGUILAR on 10/11/211541 Last Action: Continued Montelukast Sodium (Montelukast Sodium) 10 Mg Tablet, 10 MG PO HS, (Reported) Entered as Reported by: ELZA AGUILAR on 10/11/211541 Last Action: Continued Nystatin/Triamcinolone (Nystatin-Triamcinolone Cream) 100,000 Unit/Gram-0.1 % Cr, 15 GM TP for RASH/ITCHING/YEAST-AREAS, (Reported) Entered as Reported by: GURWINDER MEYER on 03/18/231558 Last Action: New Order Sertraline HCl (Sertraline HCl) 25 Mg Tablet, 25 MG PO DAILY, (Reported) Entered as Reported by: LILA DOVER on 03/20/22 0939 Last Action: Converted Trazodone HCl (Trazodone HCl) 100 Mg Tablet, 100 MG PO HS, (Reported) Entered as Reported by: ELZA AGUILAR on 10/11/211541 Last Action: Continued Umeclidinium [place] (Incruse Ellipta) 62.5 Mcg/Actuation Blst.w.dev, 62.5 MCG IH for SHORTNESS OF BREATH, (Reported) Entered as Reported by: GURWINDER MEYER on 03/18/23 1559 Last Action: New Order Discontinued Medications Acetaminophen (Tylenol Extra Strength) 500 Mg Tablet, 500-1,000 MG PO Q8H PRN for PAIN-MILD (1-4), (Reported) Discontinued Reason: No Longer Taking Entered as Reported by: ELZA AGUILAR on 10/11/211541 Last Action: Discontinued Cefdinir (Cefdinir) 300 Mg Capsule, 300 MG PO BID Discontinued Reason: No Longer Taking Prescribed by: MAC LINDSEY on 09/07/22 1201 Last Action: Discontinued Cetirizine HCl (Cetirizine HCl) 10 Mg Tablet, 10 MG PO DAILY, (Reported) Discontinued Reason: No Longer Taking Entered as Reported by: ELZA AGUILAR on 10/11/211541 Last Action: Discontinued Docusate Sodium (Stool Softener) 100 Mg Capsule, 100 MG PO DAILY PRN for CONSTIPATION-1ST LINE, (Reported) Discontinued Reason: No Longer Taking Entered as Reported by: LILA DOVER on 03/20/22 0942 Last Action: Discontinued Prednisone (Prednisone) 20 Mg Tab, 40 MG PO DAILY Discontinued Reason: No Longer Taking Prescribed by: KOKO CAR on 01/19/23926 Last Action: Discontinued Exam Vital Signs Vital Signs Date Time Temp Pulse Resp B/P (MAP) Pulse Ox O2 Delivery O2 Flow Rate FiO2 03/18/23 16:16 36.4 77 18 172/86 (114) 92 Nasal Cannula 2.00 Physical Exam Constitutional: No respiratory distress. Chest: Clear to auscultation bilaterally. CVS: Normal rate and rhythm. Neuro: Normal speech, alert and oriented. No pedal edema Labs Laboratory Tests Test 03/17/23 19:58 03/17/23 20:00 03/17/23 20:45 03/17/23 21:05 Range/Units White Blood Count 5.0 4.3-11.0 10^3/uL Red Blood Count 3.45 L 3.80-5.11 10^6/uL Hemoglobin 10.1 L 11.5-16.0 g/dL Hematocrit 34 L 35-52 % Mean Corpuscular Volume 99 80-99 fL Mean Corpuscular Hemoglobin 29 25-34 pg Mean Corpuscular Hemoglobin Concent 30 L 32-36 g/dL Red Cell Distribution Width 14.5 10.0-14.5 % Platelet Count 142 130-400 10^3/uL Mean Platelet Volume 10.8 9.0-12.2 fL Immature Granulocyte % (Auto) 0 % Neutrophils (%) (Auto) 67 42-75 % Lymphocytes (%) (Auto) 24 12-44 % Monocytes (%) (Auto) 6 0-12 % Eosinophils (%) (Auto) 2 0-10 % Basophils (%) (Auto) 0 0-10 % Neutrophils # (Auto) 3.4 1.8-7.8 10^3/uL Lymphocytes # (Auto) 1.2 1.0-4.0 10^3/uL Monocytes # (Auto) 0.3 0.0-1.0 10^3/uL Eosinophils # (Auto) 0.1 0.0-0.3 10^3/uL Basophils # (Auto) 0.0 0.0-0.1 10^3/uL Immature Granulocyte # (Auto) 0.0 0.0-0.1 10^3/uL Percent Immature Platelet Fraction 5.8 0.0-7.6 % Prothrombin Time 15.4 H 12.2-14.7 SEC INR Comment 1.2 0.8-1.4 Activated Partial Thromboplast Time 32 24-35 SEC D-Dimer < 0.27 0.00-0.49 UG/ML Sodium Level 143 135-145 MMOL/L Potassium Level 3.8 3.6-5.0 MMOL/L Chloride Level 99 98-107 MMOL/L Carbon Dioxide Level 32 21-32 MMOL/L Anion Gap 12 5-14 MMOL/L Blood Urea Nitrogen 18 7-18 MG/DL Creatinine 0.85 0.60-1.30 MG/DL Estimat Glomerular Filtration Rate 68 BUN/Creatinine Ratio 21 Glucose Level 164 H 70-105 MG/DL Calcium Level 9.0 8.5-10.1 MG/DL Corrected Calcium 9.2 8.5-10.1 MG/DL Total Bilirubin 0.4 0.1-1.0 MG/DL Aspartate Amino Transf (AST/SGOT) 17 5-34 U/L Alanine Aminotransferase (ALT/SGPT) 12 0-55 U/L Alkaline Phosphatase 83 40-136 U/L Troponin I < 0.028 <0.028 NG/ML Total Protein 6.5 6.4-8.2 GM/DL Albumin 3.8 3.2-4.5 GM/DL Glucometer 152 H 70-110 MG/DL Lactic Acid Level 1.30 0.50-2.00 MMOL/L Influenza Type A (RT-PCR) Not Detected Not Detecte Influenza Type B (RT-PCR) Not Detected Not Detecte SARS-CoV-2 RNA (RT-PCR) Not Detected Not Detecte Test 03/17/23 21:15 03/18/23 04:14 Range/Units Urine Color YELLOW Urine Clarity CLEAR Urine pH 7.0 5-9 Urine Specific [place] 1.015 L 1.016-1.022 Urine Protein NEGATIVE NEGATIVE Urine Glucose (UA) NEGATIVE NEGATIVE Urine Ketones NEGATIVE NEGATIVE Urine Nitrite POSITIVE H NEGATIVE Urine Bilirubin NEGATIVE NEGATIVE Urine Urobilinogen 1.0 < = 1.0 MG/DL Urine Leukocyte Esterase TRACE H NEGATIVE Urine RBC (Auto) NEGATIVE NEGATIVE Urine RBC 0-2 /HPF Urine WBC 5-10 H /HPF Urine Crystals NONE /LPF Urine Bacteria LARGE H /HPF Urine Casts PRESENT /LPF Urine Hyaline Casts 0-2 H /LPF Urine Mucus NEGATIVE /LPF Urine Culture Indicated CULTURE PENDING White Blood Count 4.7 4.3-11.0 10^3/uL Red Blood Count 3.10 L 3.80-5.11 10^6/uL Hemoglobin 9.1 L 11.5-16.0 g/dL Hematocrit 31 L 35-52 % Mean Corpuscular Volume 98 80-99 fL Mean Corpuscular Hemoglobin 29 25-34 pg Mean Corpuscular Hemoglobin Concent 30 L 32-36 g/dL Red Cell Distribution Width 14.6 H 10.0-14.5 % Platelet Count 113 L 130-400 10^3/uL Mean Platelet Volume 11.5 9.0-12.2 fL Immature Granulocyte % (Auto) 0 % Neutrophils (%) (Auto) 63 42-75 % Lymphocytes (%) (Auto) 25 12-44 % Monocytes (%) (Auto) 9 0-12 % Eosinophils (%) (Auto) 3 0-10 % Basophils (%) (Auto) 0 0-10 % Neutrophils # (Auto) 2.9 1.8-7.8 10^3/uL Lymphocytes # (Auto) 1.2 1.0-4.0 10^3/uL Monocytes # (Auto) 0.4 0.0-1.0 10^3/uL Eosinophils # (Auto) 0.1 0.0-0.3 10^3/uL Basophils # (Auto) 0.0 0.0-0.1 10^3/uL Immature Granulocyte # (Auto) 0.0 0.0-0.1 10^3/uL Percent Immature Platelet Fraction 5.6 0.0-7.6 % Sodium Level 144 135-145 MMOL/L Potassium Level 3.7 3.6-5.0 MMOL/L Chloride Level 100 98-107 MMOL/L Carbon Dioxide Level 35 H 21-32 MMOL/L Anion Gap 9 5-14 MMOL/L Blood Urea Nitrogen 15 7-18 MG/DL Creatinine 0.77 0.60-1.30 MG/DL Estimat Glomerular Filtration Rate 76 BUN/Creatinine Ratio 19 Glucose Level 109 H 70-105 MG/DL Calcium Level 8.8 8.5-10.1 MG/DL Corrected Calcium 9.2 8.5-10.1 MG/DL Phosphorus Level 3.3 2.3-4.7 MG/DL Magnesium Level 1.8 1.6-2.4 MG/DL Total Bilirubin 0.3 0.1-1.0 MG/DL Aspartate Amino Transf (AST/SGOT) 15 5-34 U/L Alanine Aminotransferase (ALT/SGPT) 11 0-55 U/L Alkaline Phosphatase 75 40-136 U/L Total Protein 6.0 L 6.4-8.2 GM/DL Albumin 3.5 3.2-4.5 GM/DL Triglycerides Level 99 <150 MG/DL Cholesterol Level 167 < 200 MG/DL LDL Cholesterol Direct 120 1-129 MG/DL VLDL Cholesterol 20 5-40 MG/DL HDL Cholesterol 38 L 40-60 MG/DL ECG Impression ECG Initial ECG Rhythm: Normal Sinus Comment Sinus rhythm with left bundle branch block. A/P-Cardiology Assessment/Admission Diagnosis TIA/CVA, History of carotid disease, Left bundle branch block, Chronic oral anticoagulation Plan Defer treatment of TIA/CVA to Dr. Hoskins. Patient follows with Dr. Thomas. Previous implantable loop recorder. Patient is on chronic oral anticoagulation. Sinus rhythm. Echocardiogram showed mildly reduced LV systolic function with possible inferior hypokinesis. Recommend follow-up with Dr. Thomas as an outpatient. Jose GARCIA MD Mar 18, 2023 17:21
[2023-03-18] MEDS: APIXABAN 5 MG TABLET PO SCH (20:37)
[2023-03-18] MEDS: METOCLOPRAMIDE 10 MG TABLET PO SCH (20:37)
[2023-03-18] MEDS ORDERED: MONTELUKAST 10 MG TABLET PO SCH (21:00)
[2023-03-18] MEDS ORDERED: traZODone 100 MG (DESYREL) TAB PO SCH (21:00)
[2023-03-18] MEDS ORDERED: MELATONIN 10 MG TABLET PO SCH (21:00)
[2023-03-19] VITALS: BP 149/78
[2023-03-19 03:15] VITALS: BP 134/85
[2023-03-19 05:43] LABS: BASOPHILS % (AUTO) 1 % (0-10); EOSINOPHILS # (AUTO) 0.1 10^3/uL (0.0-0.3); EOSINOPHILS % (AUTO) 2 % (0-10); HEMATOCRIT 31 % (35-52); HEMOGLOBIN 9.3 g/dL (11.5-16.0); LYMPHOCYTES # (AUTO) 1.1 10^3/uL (1.0-4.0); LYMPHOCYTES % (AUTO) 22 % (12-44); MEAN CORPUSCULAR HEMOGLOBIN 30 pg (25-34); MEAN CORPUSCULAR HGB CONC 31 g/dL (32-36); MEAN CORPUSCULAR VOLUME 98 fL (80-99); MEAN PLATELET VOLUME 10.9 fL (9.0-12.2); MONOCYTES # (AUTO) 0.4 10^3/uL (0.0-1.0); MONOCYTES % (AUTO) 8 % (0-12); NEUTROPHILS # (AUTO) 3.4 10^3/uL (1.8-7.8); NEUTROPHILS % (AUTO) 68 % (42-75); PLATELET COUNT 113 10^3/uL (130-400)
[2023-03-19 05:46] LABS: ALBUMIN 3.6 GM/DL (3.2-4.5)
[2023-03-19 05:47] LABS: POTASSIUM 4.2 MMOL/L (3.6-5.0)
[2023-03-19 05:48] LABS: CALCIUM 8.8 MG/DL (8.5-10.1)
[2023-03-19 05:49] LABS: TOTAL PROTEIN 6.1 GM/DL (6.4-8.2)
[2023-03-19 05:51] LABS: BILIRUBIN,TOTAL 0.3 MG/DL (0.1-1.0)
[2023-03-19 05:53] LABS: CREATININE SERUM 0.86 MG/DL (0.60-1.30)
[2023-03-19 05:55] LABS: MAGNESIUM 2.2 MG/DL (1.6-2.4)
[2023-03-19] MEDS: RT-Ipratropium/Albuterol NEB 3 ML VIAL INH SCH (07:22)
[2023-03-19 08:00] VITALS: BP 152/74
[2023-03-19 08:04] VITALS: BP 152/74
[2023-03-19] MEDS: SENNOSIDES 8.6 MG TABLET PO SCH (08:11)
[2023-03-19] MEDS: APIXABAN 5 MG TABLET PO SCH (08:11)
[2023-03-19] MEDS: ASPIRIN enteric coated 81MG TABLET PO SCH (08:11)
[2023-03-19] MEDS: DOCUSATE SODIUM 100 MG CAPSULE PO SCH (08:11)
[2023-03-19] MEDS: METOCLOPRAMIDE 10 MG TABLET PO SCH (08:11)
--- NOTE | 2023-03-19 08:58 | Physical Therapy Evaluation ---
PT Evaluation-General Medical Diagnosis Admission Date Mar 17, 2023 at 22:42 Medical Diagnosis: TIA Onset Date: Mar 17, 2023 Therapy Diagnosis Therapy Diagnosis: debility/weakness Height/Weight Height (Feet): 5 Height (Inches): 4.00 Weight (Pounds): 188 Weight (Ounces): 0.0 Precautions Precautions/Isolations: Fall Prevention, Standard Precautions Referral Physician: Aidee Reason for Referral: Evaluation/Treatment Medical History Pertinent Medical History: Atrial Fib, Arthritis, CAD, COPD, CVA, Dementia, Heart Failure, HTN Current History ER secondary to slurred speech and facial droop Reviewed History: Yes Social History Home: Single Level Current Living Status: Other Family Prior Prior Level of Function SCALE: Activities may be completed with or without assistive devices. 9-Mkffkzrftg-jaoddda completes the activity by him/herself with no assistance from a helper. 5-Set-up or Clean-up Assistance-helper sets up or cleans up; patient completes activity. [place] assists only prior to or following the activity. 4-Supervision or Touching Assistance-helper provides verbal cues and/or touching/steadying and/or contact guard assistance as patient completes activity. Assistance may be provided throughout the activity or intermittently. 3-Partial/Moderate Assistance-helper does LESS THAN HALF the effort. [place] lifts, holds or supports trunk or limbs, but provides less than half the effort. 2-Substantial/Maximal Assistance-helper does MORE THAN HALF the effort. [place] lifts or holds trunk or limbs and provides more than half the effort. 0-Hfgcikbxv-ihoxan does ALL the effort. Patient does none of the effort to complete the activity. Or, the assistance of 2 or more helpers is required for the patient to complete the activity. If activity was not attempted, code reason: 7-Patient Refused. 9-Not Applicable-not attempted and the patient did not perform the activity before the current illness, exacerbation or injury. 10-Not Attempted due to Environmental Limitations-(lack of equipment, weather restraints, etc.). 88-Not Attempted due to Medical Conditions or Safety Concerns. Bed Mobility: 4 Transfers (B,C,W/C): 4 Gait: 4 Indoor Mobility (Ambulation): Needed Some Help Prior Devices Use: Walker PT Evaluation-Current Subjective Patient agrees to PT. Objective Attachments: Oxygen ROM/Strength ROM Lower Extremities bilateral LE WFL Strength Lower Extremities 3/5 grossly bilateral LE all planes Integumentary/Posture Bladder Incontinence: Yes Posture WFL Neuromuscular (Tone, Coordination, Reflexes) grossly intact Sensory Vision: Functional Hearing: Functional Transfers Lying to Sitting/Side of Bed(Q: 4 Sit to Stand (QC): 4 Chair/Vgn-ac-[place] Xfer(QC): 4 Gait Mode of Locomotion: Walk Walk 10 feet (QC): 4 Walk 50 ft with 2 Turns(QC): 4 Walk 150 ft (QC): 4 Distance: 150' Gait Assistive Device: FWW Comments/Gait Description slow, steady gait sequence Balance Sitting Static: Normal Sitting Dynamic: Normal Standing Static: Good Standing Dynamic: Good Assessment/Needs Patient will be seen short term by skilled PT to ensure safe return to home with family at maximum LOF. Rehab Potential: Fair PT Short Term Goals Short Term Goals Time Frame: Mar 23, 2023 Roll Left & Right: 4 Sit to lyin Lying to sitting on side of be: 4 Sit to stand: 4 Chair/fjn-vx-iupas transfer: 4 Toilet transfer: 4 Walk 10 feet: 4 Walk 50 feet with two turns: 4 Walk 150 feet: 4 PT Plan Treatment/Plan Treatment Plan: Continue Plan of Care Treatment Plan: Education, Functional Activity Josh, Functional Strength, Gait, Safety, Therapeutic Exercise, Transfers Treatment Duration: Mar 23, 2023 Frequency: 5 times per week Estimated Hrs Per Day: .25 hour per day Time Time In: 750 Time Out: 801 DATE: Mar 19, 2023 Total Billed Treatment Time: 11 Total Billed Treatment 1 visit [facility] 11 min TEGAN SAUL PT Mar 19, 2023 08:58
[2023-03-19] MEDS ORDERED: CLOPIDOGREL 75 MG TABLET PO SCH (09:00)
[2023-03-19] MEDS ORDERED: SERTRALINE 50 MG TABLET PO SCH (09:00)
[2023-03-19] MEDS ORDERED: amLODIPine 10 MG TABLET PO SCH (09:00)
--- NOTE | 2023-03-19 09:02 | Speech Therapy Progress Note ---
Therapy Progress Note Speech pathology received a consultation for a clinical bedside swallowing evaluation and the chart was reviewed. Per chart review, the patient "passed" the RN Dysphagia Screen and is receiving a regular consistency diet. The clinician visited with the RN, who stated the patient is not displaying swallowing difficulties or issues. At this time, skilled dysphagia evaluation is not warranted. ST requested contact if issues arise. Thank you for the consultation. ANDREE ARTEAGA Mar 19, 2023 09:02
--- NOTE | 2023-03-19 09:04 | Occ Therapy Progress Note ---
Therapy Progress Note OT order received, patient in room for procedure, OT to return next available opportunity GEOVANNI CHRISTENSEN OT Mar 19, 2023 09:03
--- NOTE | 2023-03-19 09:26 | Cardiology Progress Note ---
Subjective Date Seen by Provider: Mar 19, 2023 Time Seen by Provider: 08:15 Subjective/Events-last exam Patient is sitting up in bed, eating breakfast. Denies any chest pain or dyspnea Focused Exam Lactate Level 03/17/23 20:45: Lactic Acid Level 1.30 Objective-Cardiology Exam Last Set of Vital Signs Vital Signs 03/19/23 03/19/23 08:04 08:19 Temp 36.1 Pulse 78 Resp 25 B/P (MAP) 152/74 (100) Pulse Ox 95 O2 Delivery Nasal Cannula O2 Flow Rate 2.00 I&O Intake and Output 03/19/23 00:00 Intake Total 2010 ml Output Total 1200 ml Balance 810 ml Intake Oral 1810 ml IV Total 200 ml Output Urine Total 1200 ml # Voids 4 # Bowel Movements 1 General: Alert, Oriented X3, Cooperative HEENT: Atraumatic, PERRLA Lungs: Clear to Auscultation, Normal Air Movement Heart: Regular Rate, Normal S1, Normal S2 Abdomen: Soft Extremities: No Edema Skin: No Rashes, No Significant Lesion Neuro: Cranial Nerves 3-12 NL Psych/Mental Status: Mental Status NL, Mood NL Results Lab Laboratory Tests 03/19/23 05:23 A/P-Cardiology Admission Diagnosis TIA CHF HTN HLP Assessment/Plan TIA with slurred speech and left sided facial droop.History of TIA/CVA, c urrently on ASA, Plavix, Eliquis. CTA head and neck done 03/18/23 showing no acute process. Questionable atrial fibrillation, was started on Eliquis while hospitalized at [place], patient unsure of her diagnoses. I will try to obtain a copy for our records. Chronic systolic CHF due to nonischemic cardiomyopathy. 2D Echo done 10/24/21 showing severe concentric hypertrophy, EF 25-30%. Mod MR, mild to mod AR. Most recent 2D Echo done 03/18/23 showing mild concentric hypertrophy, EF 40-45%. Mildly dilated LA, mild . Right pleural effusion noted. Coronary artery disease, patient reports she now follows with compliance officer in [place], but unsure of name. Cardiac catheterization done on September 2016 showing tortuous coronary system with mild disease nonobstructive disease Carotid artery stenosis, history of right ICA stenting done at [place]. CTA neck done on this admission showing patent stent to R ICA, L ICA with nonobstructive disease. Chronic left bundle branch block COPD Tobaccoism Hypertension, continue to monitor. Hyperlipidemia, maintained on statin Hx of right hip fx in June 2021 Patient was seen and evaluated with Tashia, examination performed, management plan was discussed, agree with the current scribed note, I made few changes to the note using Italic font Patient was seen at bedside laying down comfortably Feeling better, reporting improvement in her symptoms. Continue to monitor telemetry, monitor blood pressure and lipids TASHIA AVILA Mar 19, 2023 09:26 ANA PAULA COOLEY MD Mar 19, 2023 13:03
--- NOTE | 2023-03-19 09:58 | Diagnostic Imaging Report ---
PROCEDURE: US carotid duplex, bilateral. TECHNIQUE: Multiple real-time grayscale images were obtained over the carotid arteries in various projections, bilaterally. Additional spectral analysis and color Doppler duplex images were also obtained. INDICATION: Stroke COMPARISON: CTA of the head and neck on 03/17/2023 Parameters based on the consensus panel Louie-Scale and Doppler ultrasound criteria published May 2003, Radiology, Volume 229. DOPPLER (peak systolic velocity M/S Right Left CCA 1.30 .65 ICA Proximal .85 .53 ICA Mid .82 .49 ICA Distal .80 .59 RATIO .65 .91 ECA .90 .83 VERT NOT SEEN .65 Findings/ impression: Widely patent right carotid stent. No carotid stenosis based on velocity criteria. Dictated by: Dictated on workstation # [id number]
--- NOTE | 2023-03-19 11:21 | Diagnostic Imaging Report ---
PROCEDURE: MR imaging of the brain without contrast. TECHNIQUE: Multiplanar, multisequence MR imaging of the brain was performed without contrast. INDICATION: Slurred speech COMPARISON: CT angiography head and neck on 03/17/2023. FINDINGS: Patient motion artifact degrades image quality. No acute infarct. No acute or chronic hemorrhage. Moderate scattered T2/FLAIR hyperintense signal within the periventricular and subcortical white matter. The ventricles and cortical sulci are normal. Mild degenerative changes within the visualized cervical spine. The sella is normal. No Chiari malformation. The expected flow voids are maintained. The paranasal sinuses and mastoids are clear. The globes and orbits are normal. IMPRESSION: No acute infarct, hemorrhage, or hydrocephalus. Moderate chronic small vessel ischemic disease. Mild global volume loss. Dictated by: Dictated on workstation # [id number]
--- NOTE | 2023-03-19 12:29 | Discharge Summary ---
Diagnosis/Chief Complaint Date of Admission Mar 17, 2023 at 22:42 Date of Discharge 03/19/23 Admission Diagnosis Admission Diagnosis Possible CVA Facial Droop HTN Small vessel disease COPD Atrial Fibrillation rate controlled HLD h/o tobaccoism Discharge Diagnosis See Above Discharge Summary-Simple/Stand Procedures MRI: No acute changes, small vessel disease Consultations Dr Thomas: Cardiology Discharge Physical Examination Allergies: Coded Allergies: cortisone (Verified Allergy, Unknown, 03/17/23) diphenhydramine (Verified Allergy, Unknown, 03/17/23) penicillin G (Verified Allergy, Unknown, 03/17/23) The patient is unaware that she has a penicillin allergy. She does not remember ever taking it and if she did what the reaction was. It has not been recently. Vitals & I&Os Vital Sign - Last 12Hours Date Time Temp Pulse Resp B/P (MAP) Pulse Ox O2 Delivery O2 Flow Rate FiO2 03/19/23 08:19 Nasal Cannula 2.00 03/19/23 08:04 36.1 78 25 152/74 (100) 95 Intake and Output 03/19/23 00:00 Intake Total 1810 ml Output Total 575 ml Balance 1235 ml General Appearance: Alert, Oriented X3, No Acute Distress Respiratory: Clear to Auscultation, Normal Air Movement Cardiovascular: Regular Rate Abdominal: Soft, No Tenderness Extremities: No Edema, No Tenderness/Swelling Neuro: Normal Speech, Strength at 5/5 X4 Ext, Other (mild numbness on face) Hospital Course See final discharge diagnosis. Discussion & Recommendations 82 yo F that presented with possible CVA vs TIA vs uncontrolled HTN. Carotid dopplers reveal severe stenosis. MRI reveals no acute changes. Continue to focus on maximize medical management of CVA risks factors Discharge Condition at discharge Stable Instructions to patient/family Please see electronic discharge instructions given to patient. Discharge Medications Reviewed and agree with Discharge Medication list on patient's Discharge Ins truction sheet Clinical Quality Measures Stroke: Symptoms onset unknown: Yes MAC LINDSEY MD Mar 19, 2023 12:29
--- NOTE | 2023-03-19 12:47 | Discharge Summary ---
Discharge [facility] Discharge Medications New, Converted or Re-Newed RX: Other (No new meds) Continued Medications: Albuterol Sulfate (Albuterol Sulfate) 0.63 Mg/3 Ml Vial.neb 0.63 MG IH PRN for SHORTNESS OF BREATH, EACH Amlodipine Besylate (Amlodipine Besylate) 10 Mg Tablet 10 MG PO DAILY, #30 TAB Apixaban (Eliquis) 5 Mg Tablet 5 MG PO BID Atorvastatin Calcium (Atorvastatin Calcium) 20 Mg Tablet 20 MG PO DAILY, TAB Clopidogrel Bisulfate (Clopidogrel) 75 Mg Tablet 75 MG PO DAILY Diclofenac Sodium (Diclofenac Sodium) 1 % Gel..gram. 1 APPLIC TOP QID PRN for PAIN-BREAKTHROUGH, EA APPLY TO BACK Fluticasone Propionate (Flovent Diskus 100 mcg) 100 Mcg Blst.w.dev 100 MCG IH DAILY PRN for SHORTNESS OF BREATH, EA Lisinopril (Lisinopril) 40 Mg Tablet 40 MG PO DAILY, TAB Melatonin (Melatonin) 10 Mg Tablet 10 MG PO HS, TAB Metoclopramide HCl (Metoclopramide HCl) 10 Mg Tablet 10 MG PO BID, TAB Metoprolol Succinate (Metoprolol Succinate) 50 Mg Tab.er.24h 50 MG PO DAILY, TAB Montelukast Sodium (Montelukast Sodium) 10 Mg Tablet 10 MG PO HS, TAB Nystatin/Triamcinolone (Nystatin-Triamcinolone Cream) 100,000 Unit/Gram-0.1 % Cr 15 GM TP PRN for RASH/ITCHING/YEAST-AREAS, EA Sertraline HCl (Sertraline HCl) 25 Mg Tablet 25 MG PO DAILY Trazodone HCl (Trazodone HCl) 100 Mg Tablet 100 MG PO HS, TAB Umeclidinium [place] (Incruse Ellipta) 62.5 Mcg/Actuation Blst.w.dev 62.5 MCG IH PRN for SHORTNESS OF BREATH Patient Instructions Goal/Follow Up Appt: F/u 1-2 weeks with PCP Activity & Diet Discharge Diet: Cardiac Diet Activity as Tolerated: Yes MAC LINDSEY MD Mar 19, 2023 12:47
[2023-03-19 12:50] VITALS: BP 170/82
--- NOTE | 2023-03-19 13:08 | Occupational Therapy Eval ---
OT Evaluation-General/PLF Medical Diagnosis Admission Date Mar 17, 2023 at 22:42 Medical Diagnosis: TIA Onset Date: Mar 17, 2023 Therapy Diagnosis Therapy Diagnosis: weakness Height/Weight Height (Feet): 5 Height (Inches): 4.00 Weight (Pounds): 188 Weight (Ounces): 0.0 Precautions Precautions/Isolations: Fall Prevention, Standard Precautions Weight Bear Status Weight Bearing Restriction: Full Weight Bearing Referral Physician: Aidee Referral Reason: Evaluation/Treatment Medical History Pertinent Medical History: Atrial Fib, Arthritis, CAD, COPD, CVA, Dementia, Heart Failure, HTN Reviewed History: Yes Social History Home: Single Level Current Living Status: Other Family ADL-Prior Level of Function SCALE: Activities may be completed with or without assistive devices. 8-Jvmenycwjy-bcmuxgv completes the activity by him/herself with no assistance from a helper. 5-Set-up or Clean-up Assistance-helper sets up or cleans up; patient completes activity. [place] assists only prior to or following the activity. 4-Supervision or Touching Assistance-helper provides verbal cues and/or touching/steadying and/or contact guard assistance as patient completes activit y. Assistance may be provided throughout the activity or intermittently. 3-Partial/Moderate Assistance-helper does LESS THAN HALF the effort. [place] lifts, holds or supports trunk or limbs, but provides less than half the effort. 2-Substantial/Maximal Assistance-helper does MORE THAN HALF the effort. [place] lifts or holds trunk or limbs and provides more than half the effort. 9-Dchwwyxfg-ibbpoj does ALL the effort. Patient does none of the effort to complete the activity. Or, the assistance of 2 or more helpers is required for the patient to complete the activity. If activity was not attempted, code reason: 7-Patient Refused. 9-Not Applicable-not attempted and the patient did not perform the activity before the current illness, exacerbation or injury. 10-Not Attempted due to Environmental Limitations-(lack of equipment, weather restraints, etc.). 88-Not Attempted due to Medical Conditions or Safety Concerns. Self Care: Needed Some Help Functional Cognition: Needed Some Help Drive Self: No OT Current Status Subjective Agreeable to OT Pain Numeric Pain Scale: 0-No Pain Current Glasses/Contacts: Yes Upper Extremity ROM BUE ROM WFLS Upper Extremity Coordination INTACT WFLS Upper Extremity Strength -4/5 grossly ADL-Treatment ADL-Current ADLs performed on EOB, daughter is in room and reports she will help at home Eating (QC): 5 Oral Hygiene (QC): 5 Shower/Bathe Self (QC): 7 Upper Body Dressing (QC): 5 Lower Body Dressing (QC): 4 On/Off Footwear (QC): 5 Toileting Hygiene (QC): 4 Education OT Patient Education: Correct positioning, Exercise program, Modified ADL techniques, Progress toward Goal/Update tx plan, Purpose of tx/functional activities, Reviewed precautions, Rehab process, Safety issues, Transfer techniques, Use of adapted equipment Teaching Recipient: Patient, Family Teaching Methods: Demonstration, Discussion Response to Teaching: Verbalize Understanding, Reinforcement Needed OT Notary Public Goals Notary Public Goals 1=Demonstrate adherence to instructed precautions during ADL tasks. 2=Patient will verbalize/demonstrate understanding of assistive devices/modifications for ADL. 3=Patient will improve strength/tolerance for activity to enable patient to perform ADL's. OT Education/Plan Problem List/Assessment Assessment: No Skilled OT Needs ID'd Discharge Recommendations Plan/Recommendations: Discontinue OT Therapy Discharge Recommendati: Home & Family Treatment Plan/Plan of Care Patient would benefit from OT for education, treatment and training to promote independence in ADL's, mobility, safety and/or upper extremity function for ADL's. Plan of Care: OTHER (EVAL ) Treatment Duration: Mar 19, 2023 Frequency: 1 time per week Estimated Hrs Per Day: .25 hour per day Agreement: Yes Rehab Potential: Fair Performed Mod IND bed mobility and returned to bed all needs met Time Start Time: 10:59 Stop Time: 11:14 DATE: Mar 19, 2023 Total Time Billed (hr/min): 15 Billed Treatment Time EVM 15 min GEOVANNI CHRISTENSEN OT Mar 19, 2023 13:08
== END 2023-03-19 15:34 | disposition home or self-care (01) ==
LOC: EDUNIT# 19:49 → ER 19:53 → CSD 22:42 → 4TH 03-18 15:30
PROVIDERS: ADMIT Internal Medicine; ATTEND Family Medicine
DX: G45.9 Transient cerebral ischemic attack, unspecified (principal); R29.810 Facial weakness; J44.9 Chronic obstructive pulmonary disease, unspecified; I48.91 Unspecified atrial fibrillation; E78.5 Hyperlipidemia, unspecified; R29.702 NIHSS score 2; N39.0 Urinary tract infection, site not specified; I44.7 Left bundle-branch block, unspecified; I25.10 Atherosclerotic heart disease of native coronary artery without angina pectoris; I42.8 Other cardiomyopathies; I11.0 Hypertensive heart disease with heart failure; I50.22 Chronic systolic (congestive) heart failure; I08.0 Rheumatic disorders of both mitral and aortic valves; J90 Pleural effusion, not elsewhere classified; F03.90 Unspecified dementia, unspecified severity, without behavioral disturbance, psychotic disturbance, mood disturbance, and anxiety; Z95.828 Presence of other vascular implants and grafts; Z87.891 Personal history of nicotine dependence; Z79.01 Long term (current) use of anticoagulants; Z87.81 Personal history of (healed) traumatic fracture
CPT/HCPCS: 51702; 70450; 70496; 70498; 70551; 71045 ×2; 80053 ×3; 80061; 81000; 82947; 83605; 83735 ×2; 84100; 84484; 85025 ×3; 85379; 85610; 85730; 87040; 87077; 87088; 87636; 93005; 93041; 93880; 94640 ×2; 94760 ×2; 97162; 97166; 99284; C8929; G0378 ×2; 36415; 87186; 93306; 96361; 96375; 96376

== ENCOUNTER 2023-04-10 22:23 | Emergency (ER) | payer MEDICARE, MEDICAID ==
[~2023-04-10] VITALS: Ht 167 cm; Wt 74.0 kg
[~2023-04-10 22:23] MED LIST changes: +ALBU0.63 IH; -DICL100G13 TOP; +DICL100G60 TOP; +FLUT100B3 IH; +NYST15CR36 TP; +UMEC62.5 IH
--- NOTE | 2023-04-10 22:43 | ED Respiratory ---
General Chief Complaint: Respiratory Problems Stated Complaint: SOB Source: patient, family, EMS, old records Exam Limitations: no limitations History of Present Illness Date Seen by Provider: Apr 10, 2023 Time Seen by Provider: 22:26 Initial Comments 82-year-old female with past medical history of chronic hypoxic respiratory failure on 3 L oxygen at baseline, A-fib on Eliquis, COPD, HFrEF (EF 40-45% ECHO 02/2023) coming in via EMS from home due to increased shortness of breath. She states this started today and she had to turn her oxygen up to 5 L. Has a mild cough with it. Denies any fever, chest pain, nausea, vomiting, weakness, numbness, or any other concerns Allergies and Home Medications Allergies Coded Allergies: cortisone (Verified Allergy, Unknown, 03/17/23) diphenhydramine (Verified Allergy, Unknown, 03/17/23) penicillin G (Verified Allergy, Unknown, 03/17/23) The patient is unaware that she has a penicillin allergy. She does not remember ever taking it and if she did what the reaction was. It has not been recently. Patient Home Medication List Home Medication List Reviewed: Yes Albuterol Sulfate (Albuterol Sulfate) 0.63 Mg/3 Ml Vial.neb, 0.63 MG IH for SHORTNESS OF BREATH, (Reported) Entered as Reported by: GURWINDER MEYER on 03/18/23 1559 Amlodipine Besylate (Amlodipine Besylate) 10 Mg Tablet, 10 MG PO DAILY Prescribed by: MAC LINDSEY on 09/07/22 1201 Apixaban (Eliquis) 5 Mg Tablet, 5 MG PO BID, (Reported) Entered as Reported by: LILA DOVER on 03/20/22 0940 Atorvastatin Calcium (Atorvastatin Calcium) 20 Mg Tablet, 20 MG PO DAILY, (Reported) Entered as Reported by: ELZA AGUILAR on 10/11/21 1542 Clopidogrel Bisulfate (Clopidogrel) 75 Mg Tablet, 75 MG PO DAILY, (Reported) Entered as Reported by: LILA DOVER on 03/20/22 0939 Diclofenac Sodium (Diclofenac Sodium) 1 % Gel..gram., 1 APPLIC TOP QID PRN for PAIN-BREAKTHROUGH, (Reported) Entered as Reported by: ELZA AGUILAR on 11/09/21 1112 Fluticasone Propionate (Flovent Diskus 100 mcg) 100 Mcg Blst.w.dev, 100 MCG IH DAILY PRN for SHORTNESS OF BREATH, (Reported) Entered as Reported by: GURWINDER MEYER on 03/18/231558 Lisinopril (Lisinopril) 40 Mg Tablet, 40 MG PO DAILY, (Reported) Entered as Reported by: ELZA AGUILAR on 10/11/21 154 Melatonin (Melatonin) 10 Mg Tablet, 10 MG PO HS, (Reported) Entered as Reported by: ELZA AGUILAR on 11/09/21 111 Metoclopramide HCl (Metoclopramide HCl) 10 Mg Tablet, 10 MG PO BID, (Reported) Entered as Reported by: ELZA AGUILAR on 10/11/21 154 Metoprolol Succinate (Metoprolol Succinate) 50 Mg Tab.er.24h, 50 MG PO DAILY, (Reported) Entered as Reported by: ELZA AGUILAR on 10/11/21 154 Montelukast Sodium (Montelukast Sodium) 10 Mg Tablet, 10 MG PO HS, (Reported) Entered as Reported by: ELZA AGUILAR on 10/11/211541 Nystatin/Triamcinolone (Nystatin-Triamcinolone Cream) 100,000 Unit/Gram-0.1 % Cr, 15 GM TP for RASH/ITCHING/YEAST-AREAS, (Reported) Entered as Reported by: GURWINDER MEYER on 03/18/231558 Sertraline HCl (Sertraline HCl) 25 Mg Tablet, 25 MG PO DAILY, (Reported) Entered as Reported by: LILA DOVER on 03/20/22 0939 Trazodone HCl (Trazodone HCl) 100 Mg Tablet, 100 MG PO HS, (Reported) Entered as Reported by: ELZA AGUILAR on 10/11/211541 Umeclidinium [place] (Incruse Ellipta) 62.5 Mcg/Actuation Blst.w.dev, 62.5 MCG IH for SHORTNESS OF BREATH, (Reported) Entered as Reported by: GURWINDER MEYER on 03/18/231558 Review of Systems Review of Systems Constitutional: No fever EENTM: no symptoms reported Respiratory: see HPI Cardiovascular: no symptoms reported Gastrointestinal: no symptoms reported Genitourinary: no symptoms reported Musculoskeletal: no symptoms reported Skin: no symptoms reported Psychiatric/Neurological: No Symptoms Reported Hematologic/Lymphatic: No Symptoms Reported Past [id number]-[id number] Hx Patient Social History Tobacco Use?: No Smoking Status: Former Smoker Immunizations Up To Date Tetanus Booster (TDap): Less than 5yrs PED Vaccines UTD: Yes First/Initial COVID19 Vaccinat: RECEIVED, UNK WHEN Second COVID19 Vaccination Taurus: RECEIVED, UNK WHEN Third COVID19 Vaccination Date: RECEIVED, UNK WHEN Seasonal Allergies Seasonal Allergies: Yes Past Medical History Surgery/Hospitalization HX: htn, gerd, high cholesterol, asthma, CHF, COPD, STENT IN RT NECK, LT HIP Surgeries: Yes (RIGHT BREAST BIOPSY; ROTATOR CUFF; LEFT HIP 06/2021;R CAROTID STENT;LOOP) Section, Gallbladder, Hysterectomy, Oophorectomy, Orthopedic, Tonsillectomy Respiratory: Yes (COVID-19 12/2020-NO HOSPITALIZATION OR TREATMENT) Pneumonia, COPD Cardiac: Yes (CAROTID DISEASE;LBBB;CHF; EF 25-30%;LINQ 10/2021;MITRAL REGURG) High Cholesterol, Hypertension, Peripheral Vascular, Valvular Heart Disease Neurological: Yes (CVA 10/2021) Dementia, Stroke Reproductive Disorders: No Sexually Transmitted Disease: No Genitourinary: Yes UTI-Chronic Gastrointestinal: Yes Gastroesophageal Reflux Musculoskeletal: Yes (FALLS; LEFT HIP FX 06/2021) Arthritis, Fractures Endocrine: No HEENT: Yes (EDENTULOUS) Hearing Impairment: Hard of Hearing Cancer: No Psychosocial: No Blood Disorders: Yes (ANEMIA) Adverse Reaction/Blood Tranf: No Family Medical History Cancer, COPD, Diabetes, Hypertension SOCIAL HISTORY: -SMOKED IN PAST -DENIES ETOH -DENIES DRUG USE PAST SURGICAL HISTORY: -LEFT HIP FRACTURE WITH HIP REPLACEMENT 06/2021 - -CHOLECYSTECTOMY -TONSILLECTOMY -BREAST BIOPSY -HYSTERECTOMY / BILATERAL SALPINGO-OOPHORECTOMY, WITH ANTERIOR AND POSTERIOR REPAIR [address] HERNANDEZ -CARDIAC CATH 2016--NO INTERVENTION -LINQ DEVICE IMPLANTED 10/2021 -STENT IN LEFT CAROTID -EGD / COLONOSCOPY WITH PYLORIC POLYP REMOVAL AND COLON POLYP REMOVAL X [address] 11/[address] MURRAY. Physical Exam Vital Signs - First Documented 04/10/23 04/10/23 22:30 22:54 Temp 36.4 Pulse 79 Resp 24 B/P (MAP) 151/66 (94) Pulse Ox 97 O2 Delivery Room Air O2 Flow Rate 3.00 Capillary Refill : Height: 5'4.00" Weight: 188lbs. 0.0oz. 85.630821xo; 31.12 BMI Method:Stated General Appearance: WD/WN, no apparent distress Eyes: Bilateral Eye Normal Inspection HEENT: PERRL/EOMI, normal ENT inspection, pharynx normal Neck: non-tender, full range of motion, supple, normal inspection Respiratory: chest non-tender, lungs clear, normal breath sounds, no respiratory distress, no accessory muscle use Cardiovascular: regular rate, rhythm, no edema Gastrointestinal: normal bowel sounds, non tender, soft; No distended, No guarding, No rebound Neurologic/Psychiatric: no motor/sensory deficits, alert, normal mood/affect, oriented x 3 Skin: normal color, warm/dry Focused Exam Lactate Level 04/10/23 22:32: Lactic Acid Level 1.11 Lactic Acid Level Laboratory Tests Test 04/10/23 22:32 Lactic Acid Level 1.11 MMOL/L (0.50-2.00) Procedures/Interventions Suture Size: 5-0 Progress/Results/Core Measures Suspected Sepsis SIRS Temperature: Pulse: Respiratory Rate: Laboratory Tests 04/10/23 22:32: White Blood Count 4.5 Blood Pressure / Mean: 04/10/23 22:32: Lactic Acid Level 1.11 Laboratory Tests 04/10/23 22:32: Creatinine 0.88, INR Comment 1.3, Platelet Count 113L, Total Bilirubin 0.3 Results/Orders Lab Results Laboratory Tests Test 04/10/23 22:32 Range/Units White Blood Count 4.5 4.3-11.0 10^3/uL Red Blood Count 3.43 L 3.80-5.11 10^6/uL Hemoglobin 10.1 L 11.5-16.0 g/dL Hematocrit 34 L 35-52 % Mean Corpuscular Volume 100 H 80-99 fL Mean Corpuscular Hemoglobin 29 25-34 pg Mean Corpuscular Hemoglobin Concent 29 L 32-36 g/dL Red Cell Distribution Width 14.2 10.0-14.5 % Platelet Count 113 L 130-400 10^3/uL Mean Platelet Volume 11.0 9.0-12.2 fL Immature Granulocyte % (Auto) 0 % Neutrophils (%) (Auto) 61 42-75 % Lymphocytes (%) (Auto) 30 12-44 % Monocytes (%) (Auto) 8 0-12 % Eosinophils (%) (Auto) 2 0-10 % Basophils (%) (Auto) 0 0-10 % Neutrophils # (Auto) 2.7 1.8-7.8 10^3/uL Lymphocytes # (Auto) 1.3 1.0-4.0 10^3/uL Monocytes # (Auto) 0.3 0.0-1.0 10^3/uL Eosinophils # (Auto) 0.1 0.0-0.3 10^3/uL Basophils # (Auto) 0.0 0.0-0.1 10^3/uL Immature Granulocyte # (Auto) 0.0 0.0-0.1 10^3/uL Percent Immature Platelet Fraction 6.1 0.0-7.6 % Prothrombin Time 16.1 H 12.2-14.7 SEC INR Comment 1.3 0.8-1.4 Activated Partial Thromboplast Time 33 24-35 SEC Sodium Level 143 135-145 MMOL/L Potassium Level 3.6 3.6-5.0 MMOL/L Chloride Level 99 98-107 MMOL/L Carbon Dioxide Level 35 H 21-32 MMOL/L Anion Gap 9 5-14 MMOL/L Blood Urea Nitrogen 23 H 7-18 MG/DL Creatinine 0.88 0.60-1.30 MG/DL Estimat Glomerular Filtration Rate 65 BUN/Creatinine Ratio 26 Glucose Level 159 H 70-105 MG/DL Lactic Acid Level 1.11 0.50-2.00 MMOL/L Calcium Level 9.1 8.5-10.1 MG/DL Corrected Calcium 9.2 8.5-10.1 MG/DL Total Bilirubin 0.3 0.1-1.0 MG/DL Aspartate Amino Transf (AST/SGOT) 16 5-34 U/L Alanine Aminotransferase (ALT/SGPT) 16 0-55 U/L Alkaline Phosphatase 96 40-136 U/L Troponin I < 0.028 <0.028 NG/ML B-Type Natriuretic Peptide 104.7 H <100.0 PG/ML Total Protein 6.6 6.4-8.2 GM/DL Albumin 3.9 3.2-4.5 GM/DL Influenza Type A (RT-PCR) Not Detected Not Detecte Influenza Type B (RT-PCR) Not Detected Not Detecte SARS-CoV-2 RNA (RT-PCR) Not Detected Not Detecte Smear Scan YES My Orders Orders - FLORES QUIÑONES MD Covid 19 Inhouse Test (04/10/23 22:33) Cbc With Automated Diff (04/10/23 22:33) Comprehensive Metabolic Panel (04/10/23 22:33) Blood Culture (04/10/23 22:33) Protime With Inr (04/10/23 22:33) Partial Thromboplastin Time (04/10/23 22:33) Chest 1 View, Ap/Pa Only (04/10/23 22:33) Ed Iv/Invasive Line Start (04/10/23 22:33) Troponin I Lamar (04/10/23 22:33) Vital Signs Adult Sepsis Patie Q15M (04/10/23 22:33) O2 (04/10/23 22:33) Remove Rings In Anticipation O (04/10/23 22:33) Lactic Acid Analyzer (04/10/23 22:33) Influenza A And B By Pcr (04/10/23 22:33) Bnp Mya (04/10/23 22:38) Ekg Tracing (04/10/23 22:38) Ipratropium/Albuterol Inh Soln (Ipratrop (04/10/23 22:45) Furosemide Injection (Furosemide Injec (04/10/23 22:45) Ceftriaxone Iv/Im (Ceftriaxone Iv/Im) (04/10/23 23:00) Doxycycline Hyclate Tablet (Doxycycline (04/10/23 22:47) Medications Given in ED Current Medications Medications Dose Ordered Sig/Trevon Route Start Time Stop Time Status Last Admin Dose Admin Albuterol/ Ipratropium 3 ml ONCE ONCE INH 04/10/23 22:45 04/10/23 22:46 DC 04/10/23 23:09 3 ML Ceftriaxone Sodium 1000 mg/ Sodium Chloride 50 ml @ 100 mls/hr ONCE ONCE IV 04/10/23 23:00 04/10/23 23:29 DC 04/10/23 23:09 100 MLS/HR Furosemide 20 mg ONCE ONCE IVP 04/10/23 22:45 04/10/23 22:46 DC 04/10/23 23:13 20 MG Vital Signs/I&O 04/10/23 04/10/23 04/10/23 22:30 22:54 22:56 Temp 36.4 Pulse 79 Resp 24 B/P (MAP) 151/66 (94) Pulse Ox 97 97 O2 Delivery Room Air Room Air Nasal Cannula O2 Flow Rate 3.00 3.00 Capillary Refill : Progress Note : Progress Note 82-year-old female with above history coming in due to shortness of breath. ABCs were intact and vitals were stable on presentation. We were able to turn her oxygen down to her baseline 3 L, she was satting 98 to 99%. Lungs were clear. Given her history of COPD, was given a DuoNeb and antibiotics. She was also given IV Lasix given her history of heart failure. Does not seem to be c linically volume overloaded significantly, only gave her 20 mg of Lasix. Chest x-ray ordered and interpreted by me showing no obvious pneumonia, appears similar to prior. Labs significant for normal white blood cell count, normal lactic acid, normal creatinine, negative troponin, BNP just slightly above normal which is unremarkable. Patient continues to be well-appearing and I b elieve stable for discharge with outpatient follow-up. We will send her some antibiotics and steroids as an Rx for her COPD history. ECG Initial ECG Impression Date: Apr 10, 2023 Initial ECG Impression Time: 22:58 Initial ECG Rate: 75 Initial ECG Rhythm: Normal Sinus Comment Wide QRS, left bundle branch block, no STEMI, appears similar to prior EKG Diagnostic Imaging Diagonstic Imaging: Xray (chest) Departure Impression Primary Impression: COPD exacerbation Disposition: 01 HOME, SELF-CARE Condition: Stable Departure-Patient Inst. Decision time for Depature: 23:50 Referrals: ELZA FERGUSON DO (PCP/Family) Primary Care Physician Patient Instructions: COPD Exacerbation, Adult ED Add. Discharge Instructions: We are not seeing any evidence of pneumonia or other concerns on our imaging and lab work. Your flu and COVID test were negative as well. Antibiotics and steroids were sent to your pharmacy for your history of COPD to try to help with this. You can turn up your oxygen at home if you feel like you need it Scripts Methylprednisolone (Methylprednisolone Dose Pack) 4 Mg Tab.ds.pk 4 MG PO UD for 6 Days, #21 PKG PER DOSE PACK INSTRUCTIONS Prov: FLORES QUIÑONES MD 04/10/23 Doxycycline Hyclate (Doxycycline Hyclate) 100 Mg Tablet 100 MG PO BID for 5 Days, #10 TAB 0 Refills Prov: FLORES QUIÑONES MD 04/10/23 Work/School Note: Family Work Note Patient Received Medical Care In the Emergency Department On: Apr 10, 2023 Patient Will Be Able to Return to Work/School On: Apr 12, 2023 FLORES QUIÑONES MD Apr 10, 2023 22:43
[2023-04-10] MEDS ORDERED: RT-Ipratropium/Albuterol NEB 3 ML VIAL INH ONE (22:45)
[2023-04-10] MEDS ORDERED: FUROSEMIDE INJECTION 40 MG/4 ML VIAL IVP ONE (22:45)
[2023-04-10 22:50] LABS: EOSINOPHILS # (AUTO) 0.1 10^3/uL (0.0-0.3); EOSINOPHILS % (AUTO) 2 % (0-10); HEMOGLOBIN 10.1 g/dL (11.5-16.0); MEAN CORPUSCULAR VOLUME 100 fL (80-99)
[2023-04-10 22:52] LABS: BASOPHILS % (AUTO) 0 % (0-10); HEMATOCRIT 34 % (35-52); LYMPHOCYTES # (AUTO) 1.3 10^3/uL (1.0-4.0); LYMPHOCYTES % (AUTO) 30 % (12-44); MEAN CORPUSCULAR HEMOGLOBIN 29 pg (25-34); MEAN CORPUSCULAR HGB CONC 29 g/dL (32-36); MONOCYTES # (AUTO) 0.3 10^3/uL (0.0-1.0); MONOCYTES % (AUTO) 8 % (0-12); NEUTROPHILS # (AUTO) 2.7 10^3/uL (1.8-7.8); NEUTROPHILS % (AUTO) 61 % (42-75); PLATELET COUNT 113 10^3/uL (130-400); WHITE BLOOD COUNT 4.5 10^3/uL (4.3-11.0)
[2023-04-10 22:59] LABS: SMEAR SCAN COMMENT YES
[2023-04-10] MEDS ORDERED: cefTRIAXone IV/IM 1,000 MG in NS (IVPB) 50 ML 50 ML IV ONE (23:00)
[2023-04-10 23:10] LABS: INR 1.3 (0.8-1.4); PROTHROMBIN TIME PATIENT 16.1 SEC (12.2-14.7)
[2023-04-10 23:13] LABS: ALANINE AMINOTRANSFERASE 16 U/L (0-55); ALBUMIN 3.9 GM/DL (3.2-4.5); ALKALINE PHOSPHATASE 96 U/L (40-136); BILIRUBIN,TOTAL 0.3 MG/DL (0.1-1.0); BUN/CREATININE RATIO 26; CALCIUM 9.1 MG/DL (8.5-10.1); CARBON DIOXIDE 35 MMOL/L (21-32); CHLORIDE 99 MMOL/L (98-107); CREATININE SERUM 0.88 MG/DL (0.60-1.30); GFR ESTIMATED 65; GLUCOSE 159 MG/DL (70-105); POTASSIUM 3.6 MMOL/L (3.6-5.0); SODIUM 143 MMOL/L (135-145); TOTAL PROTEIN 6.6 GM/DL (6.4-8.2)
[2023-04-10] MEDS ORDERED: DOXY100T2 PO (23:41)
[2023-04-10] MEDS ORDERED: METH4TAB10 PO (23:41)
[2023-04-10 23:52] VITALS: BP 109/61
--- NOTE | 2023-04-11 07:27 | Diagnostic Imaging Report ---
INDICATION: Dyspnea AP view of the chest is obtained with comparison made to the study of 03/18/2023. Overall heart size and pulmonary vascularity are within normal limits. There has been an increase in bilateral perihilar density, greater on the right. There is also persistent blunting of left costophrenic sulcus. Aortic atherosclerosis is noted. There is no pneumothorax. Calcification in the medial right apical region is stable. IMPRESSION: Increasing perihilar density particularly on the right may represent edema or pneumonitis. Follow-up study could be performed to document resolution. There is continued blunting of left costophrenic sulcus which may represent pleural fluid or scarring. Dictated by: Dictated on workstation # [id number]
== END 2023-04-10 23:54 | disposition home or self-care (01) ==
LOC: EDUNIT# 22:23 → ER 22:24
DX: J44.1 Chronic obstructive pulmonary disease with (acute) exacerbation (principal); J96.11 Chronic respiratory failure with hypoxia; I48.91 Unspecified atrial fibrillation; Z88.0 Allergy status to penicillin; Z99.81 Dependence on supplemental oxygen; Z79.01 Long term (current) use of anticoagulants; Z86.16 Personal history of COVID-19; Z20.822 Contact with and (suspected) exposure to COVID-19; Z87.891 Personal history of nicotine dependence
CPT/HCPCS: 36415; 71045; 80053; 83605; 83880; 84484; 85025; 85610; 85730; 87040; 87636; 93005

== ENCOUNTER 2023-05-16 11:26 | Emergency (ER) | payer MEDICARE, MEDICAID ==
[~2023-05-16] VITALS: Ht 162.4 cm; Wt 78.4 kg
[~2023-05-16 11:26] MED LIST changes: +BENZ100C18 PO; +DOXY100T2 PO; +METH4TAB10 PO
[2023-05-16 11:57] LABS: EOSINOPHILS # (AUTO) 0.1 10^3/uL (0.0-0.3); EOSINOPHILS % (AUTO) 2 % (0-10); HEMOGLOBIN 9.2 g/dL (11.5-16.0); MEAN CORPUSCULAR VOLUME 101 fL (80-99)
--- NOTE | 2023-05-16 11:57 | ED Fall/Injury ---
General Chief Complaint: Trauma-Non Activation Stated Complaint: FALL Nursing Triage Note: PT ARRIVED BY [facility] WITH CC OF A FALL THAT HAPPENED AT 1020 TODAY. EMS REPORTED THAT SHE FELL IN HER BEDROOM. PT HAD LOC AND IS ON BLOOD THINNERS. PT STATES THAT SHE HAS LOWER BACK PAIN. C-COLLAR IN PLACE ON ARRIVAL. Source: patient Exam Limitations: no limitations (KRISTEN PAGAN APRN) History of Present Illness Date Seen by Provider: May 16, 2023 Time Seen by Provider: 11:39 Initial Comments 82-year-old female presents the ER via EMS for a fall at 10:20 a.m. today. She states she was getting out of bed, she is uncertain how she fell. She is complaining of lower back pain, reports chronic lower back pain, uncertain if this pain has changed. Fall was witnessed by granddaughter, EMS reports that patient may had loss of consciousness. C-collar in place by EMS. She denies head pain, neck pain, chest pain, shortness of air, abdominal pain, nausea, vomiting, diarrhea. Denies bilateral hip pain. Patient is able to move all 4 extremities. Granddaughter arrived after work-up initiated, states that patient did not lose consciousness. States she did hit her head, but was conscious the entire time. (KRISTEN PAGAN APRN) Allergies and Home Medications Allergies Coded Allergies: cortisone (Verified Allergy, Unknown, 03/17/23) diphenhydramine (Verified Allergy, Unknown, 03/17/23) penicillin G (Verified Allergy, Unknown, 03/17/23) The patient is unaware that she has a penicillin allergy. She does not remember ever taking it and if she did what the reaction was. It has not been recently. Patient Home Medication List Home Medication List Reviewed: Yes (KRISTEN PAGAN APRN) Albuterol Sulfate (Albuterol Sulfate) 0.63 Mg/3 Ml Vial.neb, 0.63 MG IH for SHORTNESS OF BREATH, (Reported) Entered as Reported by: GURWINDER MEYER on 03/18/23 0439 Amlodipine Besylate (Amlodipine Besylate) 10 Mg Tablet, 10 MG PO DAILY Prescribed by: MAC LINDSEY on 09/07/22 1201 Apixaban (Eliquis) 5 Mg Tablet, 5 MG PO BID, (Reported) Entered as Reported by: LILA DOVER on 03/20/22 0940 Atorvastatin Calcium (Atorvastatin Calcium) 20 Mg Tablet, 20 MG PO DAILY, (Reported) Entered as Reported by: ELZA AGUILAR on 10/11/21 1542 Benzonatate (Tessalon Perles) 100 Mg Capsule, 100 MG PO TID Prescribed by: Kristen Fletcher on 04/19/23 1258 Clopidogrel Bisulfate (Clopidogrel) 75 Mg Tablet, 75 MG PO DAILY, (Reported) Entered as Reported by: LILA DOVER on 03/20/22 0939 Diclofenac Sodium (Diclofenac Sodium) 1 % Gel..gram., 1 APPLIC TOP QID PRN for PAIN-BREAKTHROUGH, (Reported) Entered as Reported by: ELZA AGUILAR on 11/09/21 111 Doxycycline Hyclate (Doxycycline Hyclate) 100 Mg Tablet, 100 MG PO BID Prescribed by: FLORES QUIÑONES on 04/10/23 234 Fluticasone Propionate (Flovent Diskus 100 mcg) 100 Mcg Blst.w.dev, 100 MCG IH DAILY PRN for SHORTNESS OF BREATH, (Reported) Entered as Reported by: GURWINDER MEYER on 03/18/23 1559 Lisinopril (Lisinopril) 40 Mg Tablet, 40 MG PO DAILY, (Reported) Entered as Reported by: ELZA AGUILAR on 10/11/21 154 Melatonin (Melatonin) 10 Mg Tablet, 10 MG PO HS, (Reported) Entered as Reported by: ELZA AGUILAR on 11/09/21 111 Methylprednisolone (Methylprednisolone Dose Pack) 4 Mg Tab.ds.pk, 4 MG PO UD Prescribed by: FLORES QUIÑONES on 04/10/23 234 Metoclopramide HCl (Metoclopramide HCl) 10 Mg Tablet, 10 MG PO BID, (Reported) Entered as Reported by: ELZA AGUILAR on 10/11/21 154 Metoprolol Succinate (Metoprolol Succinate) 50 Mg Tab.er.24h, 50 MG PO DAILY, (Reported) Entered as Reported by: ELZA AGUILAR on 10/11/21 154 Montelukast Sodium (Montelukast Sodium) 10 Mg Tablet, 10 MG PO HS, (Reported) Entered as Reported by: ELZA AGUILAR on 10/11/21 154 Nystatin/Triamcinolone (Nystatin-Triamcinolone Cream) 100,000 Unit/Gram-0.1 % Cr, 15 GM TP for RASH/ITCHING/YEAST-AREAS, (Reported) Entered as Reported by: GURWINDER MEYER on 03/18/23 1559 Sertraline HCl (Sertraline HCl) 25 Mg Tablet, 25 MG PO DAILY, (Reported) Entered as Reported by: LILA DOVER on 03/20/22 0939 Trazodone HCl (Trazodone HCl) 100 Mg Tablet, 100 MG PO HS, (Reported) Entered as Reported by: ELZA AGUILAR on 10/11/21 1542 Umeclidinium [place] (Incruse Ellipta) 62.5 Mcg/Actuation Blst.w.dev, 62.5 MCG IH for SHORTNESS OF BREATH, (Reported) Entered as Reported by: GURWINDER MEYER on 03/18/239 Review of Systems Review of Systems Constitutional: see HPI (KRISTEN PAGAN APRN) Past Uyakifu-Gbjmcm-Txrlpl Hx Patient Social History Tobacco Use?: No Substance use?: No Alcohol Use?: No (KRISTEN PAGAN APRN) Immunizations Up To Date Tetanus Booster (TDap): Less than 5yrs PED Vaccines UTD: Yes First/Initial COVID19 Vaccinat: RECEIVED, UNK WHEN Second COVID19 Vaccination Taurus: RECEIVED, UNK WHEN Third COVID19 Vaccination Date: RECEIVED, UNK WHEN (KRISETN PAGAN APRN) Seasonal Allergies Seasonal Allergies: Yes (KRISTEN PAGAN APRN) Past Medical History Surgery/Hospitalization HX: htn, gerd, high cholesterol, asthma, CHF, COPD, STENT IN RT NECK, LT HIP Surgeries: Yes (RIGHT BREAST BIOPSY; ROTATOR CUFF; LEFT HIP 06/2021;R CAROTID STENT;LOOP) Section, Gallbladder, Hysterectomy, Oophorectomy, Orthopedic, Tonsillectomy Respiratory: Yes (COVID-19 12/2020-NO HOSPITALIZATION OR TREATMENT) Pneumonia, COPD Cardiac: Yes (CAROTID DISEASE;LBBB;CHF; EF 25-30%;LINQ 10/2021;MITRAL REGURG) High Cholesterol, Hypertension, Peripheral Vascular, Valvular Heart Disease Neurological: Yes (CVA 10/2021) Dementia, Stroke Reproductive Disorders: No Sexually Transmitted Disease: No Genitourinary: Yes UTI-Chronic Gastrointestinal: Yes Gastroesophageal Reflux Musculoskeletal: Yes (FALLS; LEFT HIP FX 06/2021) Arthritis, Fractures Endocrine: No HEENT: Yes (EDENTULOUS) Hearing Impairment: Hard of Hearing Cancer: No Psychosocial: No Blood Disorders: Yes (ANEMIA) Adverse Reaction/Blood Tranf: No (KRISTEN PAGAN APRN) Family Medical History Cancer, COPD, Diabetes, Hypertension SOCIAL HISTORY: -SMOKED IN PAST -DENIES ETOH -DENIES DRUG USE PAST SURGICAL HISTORY: -LEFT HIP FRACTURE WITH HIP REPLACEMENT 06/2021 - -CHOLECYSTECTOMY -TONSILLECTOMY -BREAST BIOPSY -HYSTERECTOMY / BILATERAL SALPINGO-OOPHORECTOMY, WITH ANTERIOR AND POSTERIOR REPAIR [address] HERNANDEZ -CARDIAC CATH 2016--NO INTERVENTION -LINQ DEVICE IMPLANTED 10/2021 -STENT IN LEFT CAROTID -EGD / COLONOSCOPY WITH PYLORIC POLYP REMOVAL AND COLON POLYP REMOVAL X [address] 11/[address] MURRAY. (KRISTEN PAGAN APRN) Physical Exam Vital Signs Vital Signs - First Documented 05/16/23 11:31 Temp 37.4 Pulse 76 B/P (MAP) 146/88 (107) Pulse Ox 95 O2 Delivery Nasal Cannula O2 Flow Rate 4.00 (GUANAKITO CLIFTON MD) Vital Signs Capillary Refill : (KRISTEN PAGAN APRN) Height, Weight, BMI Height: 5'4.00" Weight: 188lbs. 0.0oz. [id number]; 29.00 BMI Method:Stated General Appearance: WD/WN, no apparent distress HEENT: PERRL/EOMI, TMs normal Neck: non-tender, full range of motion, supple, normal inspection Cardiovascular: regular rate, rhythm Respiratory: lungs clear, normal breath sounds, no respiratory distress, no accessory muscle use Pelvic: other (No bony tenderness of the pelvic bones) Back: vertebral tenderness (Lower lumbar, sacral region, no step-offs) Extremities: normal range of motion, non-tender, normal inspection, no pedal edema Neurologic/Psychiatric: information technology architect II-XII nml as tested, alert, normal mood/affect Skin: normal color, warm/dry (KRISTEN PAGAN APRN) Procedures/Interventions Suture Size: 5-0 (LATASHA,KRISTEN R DATA REPORT ANALYST) Progress/Results/Core Measures Results/Orders Lab Results Laboratory Tests Test 05/16/23 11:43 Range/Units White Blood Count 3.9 L 4.3-11.0 10^3/uL Red Blood Count 3.11 L 3.80-5.11 10^6/uL Hemoglobin 9.2 L 11.5-16.0 g/dL Hematocrit 32 L 35-52 % Mean Corpuscular Volume 101 H 80-99 fL Mean Corpuscular Hemoglobin 30 25-34 pg Mean Corpuscular Hemoglobin Concent 29 L 32-36 g/dL Red Cell Distribution Width 14.3 10.0-14.5 % Platelet Count 128 L 130-400 10^3/uL Mean Platelet Volume 11.0 9.0-12.2 fL Immature Granulocyte % (Auto) 1 % Neutrophils (%) (Auto) 71 42-75 % Lymphocytes (%) (Auto) 19 12-44 % Monocytes (%) (Auto) 8 0-12 % Eosinophils (%) (Auto) 2 0-10 % Basophils (%) (Auto) 0 0-10 % Neutrophils # (Auto) 2.8 1.8-7.8 10^3/uL Lymphocytes # (Auto) 0.7 L 1.0-4.0 10^3/uL Monocytes # (Auto) 0.3 0.0-1.0 10^3/uL Eosinophils # (Auto) 0.1 0.0-0.3 10^3/uL Basophils # (Auto) 0.0 0.0-0.1 10^3/uL Immature Granulocyte # (Auto) 0.0 0.0-0.1 10^3/uL Percent Immature Platelet Fraction 5.8 0.0-7.6 % Sodium Level 143 135-145 MMOL/L Potassium Level 4.6 3.6-5.0 MMOL/L Chloride Level 96 L 98-107 MMOL/L Carbon Dioxide Level 38 H 21-32 MMOL/L Anion Gap 9 5-14 MMOL/L Blood Urea Nitrogen 21 H 7-18 MG/DL Creatinine 0.80 0.60-1.30 MG/DL Estimat Glomerular Filtration Rate 73 BUN/Creatinine Ratio 26 Glucose Level 119 H 70-105 MG/DL Calcium Level 8.9 8.5-10.1 MG/DL Corrected Calcium 9.2 8.5-10.1 MG/DL Total Bilirubin 0.4 0.1-1.0 MG/DL Aspartate Amino Transf (AST/SGOT) 13 5-34 U/L Alanine Aminotransferase (ALT/SGPT) 10 0-55 U/L Alkaline Phosphatase 85 40-136 U/L Total Protein 6.4 6.4-8.2 GM/DL Albumin 3.6 3.2-4.5 GM/DL (GUANAKITO CLIFTON MD) Vital Signs/I&O 05/16/23 05/16/23 05/16/23 11:31 11:38 13:07 Temp 37.4 Pulse 76 78 B/P (MAP) 146/88 (107) 178/116 Pulse Ox 95 97 O2 Delivery Nasal Cannula Nasal Cannula Nasal Cannula O2 Flow Rate 4.00 4.00 4.00 (GUANAKITO CLIFTON MD) Blood Pressure Mean: 107 Progress Progress Note : Progress Note Patient seen and evaluated, resting comfortably in bed, no acute distress. Based on exam and symptoms, work-up initiated including CBC, CMP, EKG, CT head, C-spine, lumbar spine, pelvis. 1259 Labs and imaging reviewed. CBC shows slightly decreased WBC 3.9, decreased RBC 3.11, decreased hemoglobin 9.2, decreased hematocrit 32, MCV slightly elevated 101. Patient has history of anemia, hemoglobin and hematocrit are lower than previous labs completed 1 month ago. CMP shows slightly decreased chloride 96, elevated CO2 38. Patient has COPD and wears oxygen at all times, likely the cause of her elevated CO2. BUN 21, creatinine 0.8, GFR 73. Pelvic CT shows no acute fracture. Lumbar CT shows no acute fracture. Does show subcentimeter hemorrhagic left renal cyst and benign hemangioma in the L1 vertebral body. It also shows diffuse osseous demineralization likely osteopenia or osteoporosis. CT head shows no acute finding. C-spine shows degenerative disc disease without any acute findings. Results discussed with patient and granddaughter. Patient instructed to follow-up with primary regarding hemorrhagic cyst and anemia. C-collar removed, patient has full range of motion of neck, no tenderness. Patient is stable for discharge. Discharge instructions and return precautions provided. (KRISTEN PAGAN APRN) Initial ECG Impression Date: May 16, 2023 Initial ECG Impression Time: 11:57 Initial ECG Rate: 72 Initial ECG Rhythm: Normal Sinus Initial ECG Intervals: QT Initial ECG Intervals QRS 174 QTc 448 Initial ECG Impression: Nonspecific Changes Initial ECG Comparisson: Unchanged Comment Left bundle branch block, no change from previous EKG (KRISTEN PAGAN APRN) Diagnostic Imaging Diagonstic Imaging: CT Plain Films/CT/US/NM/MRI: pelvis Comments [facility], [place] NAME: LOKI LOPEZ [facility] REC#: [id number] PT STATUS: DEP ER : 1940 PHYSICIAN: KRISTEN PAGAN APRN ADMIT DATE: 05/16/23/ER Signed Date of Exam:05/16/23 CT PELVIS WO PROCEDURE: CT pelvis without contrast. TECHNIQUE: Multiple contiguous axial images were obtained through the pelvis without the use of intravenous contrast. Sagittal and coronal reformations were performed. Auto Exposure Controls were utilized during the CT exam to meet ALARA standards for radiation dose reduction. INDICATION: Trauma. COMPARISON: CT lumbar spine performed concurrently. FINDINGS: There is no acute fracture within the pelvis. Left total hip arthroplasty has components in good alignment. No acute periprosthetic fracture. No fracture in the proximal right femur. Additionally, there are no features of avascular necrosis of the right femoral head. Please see separate report for CT lumbar spine for details of these visualized portions in this exam. No free pelvic fluid. Hysterectomy. No pelvic or inguinal lymphadenopathy. IMPRESSION: 1. No fracture in the pelvis or proximal femurs. 2. No complication associated with left total hip arthroplasty. Dictated by: Dictated on workstation # [id number] Dict: 05/16/23 1221 Trans: 05/16/23 1440 [id number] Interpreted by: BLANE MARQUEZ MD Electronically signed by: BLANE MARQUEZ MD 05/16/23 1444 Diagonstic Imaging: CT Plain Films/CT/US/NM/MRI: other (lumbar spine) Comments [facility], [place] NAME: LOKI LOPEZ [facility] REC#: [id number] PT STATUS: DEP ER : 1940 PHYSICIAN: KRISTEN PAGAN APRN ADMIT DATE: 05/16/23/ER Signed Date of Exam:05/16/23 CT LUMBAR SPINE WO PROCEDURE: CT lumbar spine without contrast. TECHNIQUE: Multiple contiguous axial images were obtained through the lumbar spine without the use of intravenous contrast. Sagittal and coronal reformations were then performed. Auto Exposure Controls were utilized during the CT exam to meet ALARA standards for radiation dose reduction. INDICATION: Trauma. COMPARISON: CT pelvis performed concurrently. FINDINGS: Diffuse osseous demineralization suggests osteopenia or osteoporosis. Benign hemangioma is present in the L1 vertebral body. No acute fracture is present. There is no traumatic malalignment. There is approximately 3 mm of retrolisthesis of L4 on L5. Atherosclerotic aorta is normal in caliber. No concerning abnormality in the retroperitoneum. Subcentimeter hemorrhagic left renal cyst. IMPRESSION: No fracture within the lumbar spine. Dictated by: Dictated on workstation # [id number] Dict: 05/16/23 1223 Trans: 05/16/23 1440 [id number] Interpreted by: BLANE MARQUEZ MD Electronically signed by: BLANE MARQUEZ MD 05/16/23 1440 Diagonstic Imaging: CT Plain Films/CT/US/NM/MRI: c-spine, head Comments [facility] [place] [facility] REC[facility] [id number] PT STATUS: REG ER : 1940 PHYSICIAN: KRISTEN PAGAN APRN ADMIT DATE: 05/16/23/ER Draft Date of Exam:05/16/23 CT HEAD/CERVICAL SPINE WO CLINICAL INDICATION: Patient is status post fall with loss of consciousness. No new complaints. EXAM: Head CT without IV contrast with sagittal and coronal reformations. Axial CT scan of the cervical spine with sagittal and coronal reformations. Auto Exposure Controls were utilized during the CT exam to meet ALARA standards for radiation dose reduction. COMPARISON: MRI of the brain without contrast dated 03/19/2023. CT angiogram of the head/neck dated 03/17/2023. FINDINGS: HEAD CT: There is no evidence of acute cerebral infarct, intracranial hemorrhage, or gross mass effect. There is brain parenchymal volume loss. There is normal garber-white matter distinction. There is no significant midline shift or herniation. There is no evidence of hydrocephalus. The basal cisterns are unremarkable. The skull, extracranial soft tissue, and orbits are unremarkable. There is mild mucosal thickening involving the right ethmoid sinus and left frontal sinus region. Temporal bones show no significant abnormality. CERVICAL SPINE: There is no acute cervical spine fracture or dislocation. There are degenerative spurs anteriorly at the C5-C6 level. There is no significant neck soft tissue abnormality. There is atelectasis involving the posterior aspect of the left upper lobe or fluid along the left major fissure. IMPRESSION: 1: There is no evidence of an acute intracranial hemorrhage. There is no skull fracture. 2: There is cervical spine degenerative disease with no acute fracture or dislocation. Dictated on workstation # [id number] (KRISTEN PAGAN APRN) Departure Impression Primary Impression: Fall on same level Additional Impression: Head injury Disposition: 01 HOME, SELF-CARE Condition: Stable Departure-Patient Inst. Decision time for Depature: 12:59 (KRISTEN PAGAN APRN) Referrals: ELZA FERGUSON DO (PCP/Family) Primary Care Physician Patient Instructions: Head injury in adults Add. Discharge Instructions: Follow-up with primary care provider regarding anemia and cyst on left kidney. Return for abnormal behavior, difficulty doing normal activities, weakness on the body, slurred speech, difficulty arousing, or any other new, concerning, or worsening symptoms. All discharge instructions reviewed with patient and/or family. Voiced understanding. ATTENDING PHYSICIAN NOTE: I was physically present as attending physician in the emergency department during the care of this patient, but I was not directly involved in the decision making or delivery of care for this patient. (GUANAKITO CLIFTON MD) Copy Copies To 1: ELZA FERGUSON BRITTANY R APRN May 16, 2023 11:57 GUANAKITO CLIFTON MD May 17, 2023 11:42
[2023-05-16 11:59] LABS: ALBUMIN 3.6 GM/DL (3.2-4.5); BASOPHILS % (AUTO) 0 % (0-10); HEMATOCRIT 32 % (35-52); LYMPHOCYTES # (AUTO) 0.7 10^3/uL (1.0-4.0); LYMPHOCYTES % (AUTO) 19 % (12-44); MEAN CORPUSCULAR HEMOGLOBIN 30 pg (25-34); MEAN CORPUSCULAR HGB CONC 29 g/dL (32-36); MONOCYTES # (AUTO) 0.3 10^3/uL (0.0-1.0); MONOCYTES % (AUTO) 8 % (0-12); NEUTROPHILS # (AUTO) 2.8 10^3/uL (1.8-7.8); NEUTROPHILS % (AUTO) 71 % (42-75); PLATELET COUNT 128 10^3/uL (130-400); POTASSIUM 4.6 MMOL/L (3.6-5.0); WHITE BLOOD COUNT 3.9 10^3/uL (4.3-11.0)
[2023-05-16 12:01] LABS: CALCIUM 8.9 MG/DL (8.5-10.1)
[2023-05-16 12:02] LABS: TOTAL PROTEIN 6.4 GM/DL (6.4-8.2)
[2023-05-16 12:04] LABS: BILIRUBIN,TOTAL 0.4 MG/DL (0.1-1.0)
[2023-05-16 12:05] LABS: CREATININE SERUM 0.8 MG/DL (0.60-1.30)
--- NOTE | 2023-05-16 12:25 | Diagnostic Imaging Report ---
PROCEDURE: CT pelvis without contrast. TECHNIQUE: Multiple contiguous axial images were obtained through the pelvis without the use of intravenous contrast. Sagittal and coronal reformations were performed. Auto Exposure Controls were utilized during the CT exam to meet ALARA standards for radiation dose reduction. INDICATION: Trauma. COMPARISON: CT lumbar spine performed concurrently. FINDINGS: There is no acute fracture within the pelvis. Left total hip arthroplasty has components in good alignment. No acute periprosthetic fracture. No fracture in the proximal right femur. Additionally, there are no features of avascular necrosis of the right femoral head. Please see separate report for CT lumbar spine for details of these visualized portions in this exam. No free pelvic fluid. Hysterectomy. No pelvic or inguinal lymphadenopathy. IMPRESSION: 1. No fracture in the pelvis or proximal femurs. 2. No complication associated with left total hip arthroplasty. Dictated by: Dictated on workstation # [id number]
--- NOTE | 2023-05-16 12:27 | Diagnostic Imaging Report ---
PROCEDURE: CT lumbar spine without contrast. TECHNIQUE: Multiple contiguous axial images were obtained through the lumbar spine without the use of intravenous contrast. Sagittal and coronal reformations were then performed. Auto Exposure Controls were utilized during the CT exam to meet ALARA standards for radiation dose reduction. INDICATION: Trauma. COMPARISON: CT pelvis performed concurrently. FINDINGS: Diffuse osseous demineralization suggests osteopenia or osteoporosis. Benign hemangioma is present in the L1 vertebral body. No acute fracture is present. There is no traumatic malalignment. There is approximately 3 mm of retrolisthesis of L4 on L5. Atherosclerotic aorta is normal in caliber. No concerning abnormality in the retroperitoneum. Subcentimeter hemorrhagic left renal cyst. IMPRESSION: No fracture within the lumbar spine. Dictated by: Dictated on workstation # [id number]
--- NOTE | 2023-05-16 12:42 | Diagnostic Imaging Report ---
CLINICAL INDICATION: Patient is status post fall with loss of consciousness. No new complaints. EXAM: Head CT without IV contrast with sagittal and coronal reformations. Axial CT scan of the cervical spine with sagittal and coronal reformations. Auto Exposure Controls were utilized during the CT exam to meet ALARA standards for radiation dose reduction. COMPARISON: MRI of the brain without contrast dated 03/19/2023. CT angiogram of the head/neck dated 03/17/2023. FINDINGS: HEAD CT: There is no evidence of acute cerebral infarct, intracranial hemorrhage, or gross mass effect. There is brain parenchymal volume loss. There is normal garber-white matter distinction. There is no significant midline shift or herniation. There is no evidence of hydrocephalus. The basal cisterns are unremarkable. The skull, extracranial soft tissue, and orbits are unremarkable. There is mild mucosal thickening involving the right ethmoid sinus and left frontal sinus region. Temporal bones show no significant abnormality. CERVICAL SPINE: There is no acute cervical spine fracture or dislocation. There are degenerative spurs anteriorly at the C5-C6 level. There is no significant neck soft tissue abnormality. There is atelectasis involving the posterior aspect of the left upper lobe or fluid along the left major fissure. IMPRESSION: 1: There is no evidence of an acute intracranial hemorrhage. There is no skull fracture. 2: There is cervical spine degenerative disease with no acute fracture or dislocation. Dictated by: Dictated on workstation # [id number]
[2023-05-16 13:07] VITALS: BP 178/116
== END 2023-05-16 13:12 | disposition home or self-care (01) ==
LOC: EDUNIT# 11:26 → ER 11:27
DX: S09.90XA Unspecified injury of head, initial encounter (principal); M54.50 Low back pain, unspecified; Z87.891 Personal history of nicotine dependence; Z86.16 Personal history of COVID-19; W06.XXXA Fall from bed, initial encounter
CPT/HCPCS: 36415; 70450; 72125; 72131; 72192; 80053; 85025; 93005

== ENCOUNTER 2023-06-14 21:26 | Emergency (ER) | payer MEDICARE, MEDICAID ==
[~2023-06-14] VITALS: Ht 162.5 cm; Wt 74.3 kg
--- NOTE | 2023-06-14 21:39 | ED Respiratory ---
General Chief Complaint: Respiratory Problems Stated Complaint: TROUBLE BREATHING, ON OXYGEN Source: patient, family Exam Limitations: no limitations History of Present Illness Date Seen by Provider: Jun 14, 2023 Time Seen by Provider: 21:25 Initial Comments 82-year-old female presents the emergency department today for shortness of b reath. She has COPD and is on 2 to 3 L of oxygen via nasal cannula chronically. Her daughter had to turn it up to 4 L a couple of days ago due to shortness of breath. She was seen at that time in the walk-in clinic and I was told that she had a chest x-ray was started on Levaquin. She has been compliant with this medication. Tonight she complained of feeling more short of breath so her daughter brought her in. He denies any changes in her chronic cough. No fevers or chills. No chest pain. No changes in bowel or bladder habits. All other systems reviewed and negative except documented per HPI. Voice recognition software was used to help create this chart Allergies and Home Medications Allergies Coded Allergies: cortisone (Verified Allergy, Unknown, 03/17/23) diphenhydramine (Verified Allergy, Unknown, 03/17/23) penicillin G (Verified Allergy, Unknown, 03/17/23) The patient is unaware that she has a penicillin allergy. She does not remember ever taking it and if she did what the reaction was. It has not been recently. Patient Home Medication List Home Medication List Reviewed: Yes Albuterol Sulfate (Albuterol Sulfate) 0.63 Mg/3 Ml Vial.neb, 0.63 MG IH for SHORTNESS OF BREATH, (Reported) Entered as Reported by: GURWINDER MEYER on 03/18/23 1559 Amlodipine Besylate (Amlodipine Besylate) 10 Mg Tablet, 10 MG PO DAILY Prescribed by: MAC LINDSEY on 09/07/22 1201 Apixaban (Eliquis) 5 Mg Tablet, 5 MG PO BID, (Reported) Entered as Reported by: LILA DOVER on 03/20/22 0940 Atorvastatin Calcium (Atorvastatin Calcium) 20 Mg Tablet, 20 MG PO DAILY, (Reported) Entered as Reported by: ELZA AGUILAR on 10/11/21 1542 Benzonatate (Tessalon Perles) 100 Mg Capsule, 100 MG PO TID Prescribed by: Kristen Fletcher on 04/19/23 1258 Clopidogrel Bisulfate (Clopidogrel) 75 Mg Tablet, 75 MG PO DAILY, (Reported) Entered as Reported by: LILA DOVER on 03/20/22 0939 Diclofenac Sodium (Diclofenac Sodium) 1 % Gel..gram., 1 APPLIC TOP QID PRN for PAIN-BREAKTHROUGH, (Reported) Entered as Reported by: ELZA AGUILAR on 11/09/21 1112 Doxycycline Hyclate (Doxycycline Hyclate) 100 Mg Tablet, 100 MG PO BID Prescribed by: FLORES QUIÑONES on 04/10/23 234 Fluticasone Propionate (Flovent Diskus 100 mcg) 100 Mcg Blst.w.dev, 100 MCG IH DAILY PRN for SHORTNESS OF BREATH, (Reported) Entered as Reported by: GURWINDER MEYER on 03/18/23 155 Lisinopril (Lisinopril) 40 Mg Tablet, 40 MG PO DAILY, (Reported) Entered as Reported by: ELZA AGUILAR on 10/11/21 154 Melatonin (Melatonin) 10 Mg Tablet, 10 MG PO HS, (Reported) Entered as Reported by: ELZA AGUILAR on 11/09/21 111 Methylprednisolone (Methylprednisolone Dose Pack) 4 Mg Tab.ds.pk, 4 MG PO UD Prescribed by: FLORES QUIÑONES on 04/10/232340 Metoclopramide HCl (Metoclopramide HCl) 10 Mg Tablet, 10 MG PO BID, (Reported) Entered as Reported by: ELZA AGUILAR on 10/11/21 154 Metoprolol Succinate (Metoprolol Succinate) 50 Mg Tab.er.24h, 50 MG PO DAILY, (Reported) Entered as Reported by: ELZA AGUILAR on 10/11/21 154 Montelukast Sodium (Montelukast Sodium) 10 Mg Tablet, 10 MG PO HS, (Reported) Entered as Reported by: ELZA AGUILAR on 10/11/21 154 Nystatin/Triamcinolone (Nystatin-Triamcinolone Cream) 100,000 Unit/Gram-0.1 % Cr, 15 GM TP for RASH/ITCHING/YEAST-AREAS, (Reported) Entered as Reported by: GURWINDER MEYER on 03/18/23 155 Sertraline HCl (Sertraline HCl) 25 Mg Tablet, 25 MG PO DAILY, (Reported) Entered as Reported by: LILA DOVER on 03/20/22 0939 Trazodone HCl (Trazodone HCl) 100 Mg Tablet, 100 MG PO HS, (Reported) Entered as Reported by: EZLA AGUILAR on 10/11/21 1542 Umeclidinium [place] (Incruse Ellipta) 62.5 Mcg/Actuation Blst.w.dev, 62.5 MCG IH for SHORTNESS OF BREATH, (Reported) Entered as Reported by: GURWINDER MEYER on 03/18/23 1559 Review of Systems Review of Systems Constitutional: see HPI Past Gtcyyod-Kgurqv-Geiaky Hx Patient Social History Tobacco Use?: No Substance use?: No Alcohol Use?: No Immunizations Up To Date Tetanus Booster (TDap): Less than 5yrs PED Vaccines UTD: Yes First/Initial COVID19 Vaccinat: RECEIVED, UNK WHEN Second COVID19 Vaccination Taurus: RECEIVED, UNK WHEN Third COVID19 Vaccination Date: RECEIVED, UNK WHEN Seasonal Allergies Seasonal Allergies: Yes Past Medical History Surgery/Hospitalization HX: htn, gerd, high cholesterol, asthma, CHF, COPD, STENT IN RT NECK, LT HIP Surgeries: Yes (RIGHT BREAST BIOPSY; ROTATOR CUFF; LEFT HIP 06/2021;R CAROTID STENT;LOOP) Section, Gallbladder, Hysterectomy, Oophorectomy, Orthopedic, Tonsillectomy Respiratory: Yes (COVID-19 12/2020-NO HOSPITALIZATION OR TREATMENT) Pneumonia, COPD Cardiac: Yes (CAROTID DISEASE;LBBB;CHF; EF 25-30%;LINQ 10/2021;MITRAL REGURG) High Cholesterol, Hypertension, Peripheral Vascular, Valvular Heart Disease Neurological: Yes (CVA 10/2021) Dementia, Stroke Reproductive Disorders: No Sexually Transmitted Disease: No Genitourinary: Yes UTI-Chronic Gastrointestinal: Yes Gastroesophageal Reflux Musculoskeletal: Yes (FALLS; LEFT HIP FX 06/2021) Arthritis, Fractures Endocrine: No HEENT: Yes (EDENTULOUS) Hearing Impairment: Hard of Hearing Cancer: No Psychosocial: No Blood Disorders: Yes (ANEMIA) Adverse Reaction/Blood Tranf: No Family Medical History Cancer, COPD, Diabetes, Hypertension SOCIAL HISTORY: -SMOKED IN PAST -DENIES ETOH -DENIES DRUG USE PAST SURGICAL HISTORY: -LEFT HIP FRACTURE WITH HIP REPLACEMENT 06/2021 - -CHOLECYSTECTOMY -TONSILLECTOMY -BREAST BIOPSY -HYSTERECTOMY / BILATERAL SALPINGO-OOPHORECTOMY, WITH ANTERIOR AND POSTERIOR REPAIR [address] HERNANDEZ -CARDIAC CATH 2016--NO INTERVENTION -LINQ DEVICE IMPLANTED 10/2021 -STENT IN LEFT CAROTID -EGD / COLONOSCOPY WITH PYLORIC POLYP REMOVAL AND COLON POLYP REMOVAL X [address] 11/[address] MURRAY. Physical Exam Vital Signs - First Documented 06/14/23 21:32 Temp 36.9 Pulse 72 B/P (MAP) 136/86 (103) Pulse Ox 86 O2 Delivery Nasal Cannula O2 Flow Rate 3.00 Capillary Refill : Height: 5'4.00" Weight: 188lbs. 0.0oz. [id number]; 29.00 BMI Method:Stated General Appearance: WD/WN, other (Mild increased work of breathing) HEENT: normal ENT inspection, pharynx normal Neck: non-tender, supple Respiratory: chest non-tender, other (Decreased breath sounds bilaterally) Cardiovascular: regular rate, rhythm, no murmur Gastrointestinal: normal bowel sounds, non tender, soft Extremities: normal range of motion, non-tender, normal inspection, no pedal edema, normal capillary refill Neurologic/Psychiatric: alert, oriented x 3 Skin: normal color, warm/dry Focused Exam Lactate Level 06/14/23 21:40: Lactic Acid Level 2.04*H Lactic Acid Level Laboratory Tests Test 06/14/23 21:40 Lactic Acid Level 2.04 MMOL/L (0.50-2.00) *H Procedures/Interventions Suture Size: 5-0 Progress/Results/Core Measures Suspected Sepsis SIRS Temperature: Pulse: Respiratory Rate: Laboratory Tests 06/14/23 21:40: White Blood Count 6.0 Blood Pressure / Mean: 06/14/23 21:40: Lactic Acid Level 2.04*H Laboratory Tests 06/14/23 21:40: Creatinine 1.16, Platelet Count 141, Total Bilirubin 0.2 Results/Orders Lab Results Laboratory Tests Test 06/14/23 21:40 Range/Units White Blood Count 6.0 4.3-11.0 10^3/uL Red Blood Count 3.01 L 3.80-5.11 10^6/uL Hemoglobin 9.0 L 11.5-16.0 g/dL Hematocrit 30 L 35-52 % Mean Corpuscular Volume 100 H 80-99 fL Mean Corpuscular Hemoglobin 30 25-34 pg Mean Corpuscular Hemoglobin Concent 30 L 32-36 g/dL Red Cell Distribution Width 14.6 H 10.0-14.5 % Platelet Count 141 130-400 10^3/uL Mean Platelet Volume 11.0 9.0-12.2 fL Immature Granulocyte % (Auto) 0 % Neutrophils (%) (Auto) 73 42-75 % Lymphocytes (%) (Auto) 19 12-44 % Monocytes (%) (Auto) 6 0-12 % Eosinophils (%) (Auto) 2 0-10 % Basophils (%) (Auto) 0 0-10 % Neutrophils # (Auto) 4.4 1.8-7.8 10^3/uL Lymphocytes # (Auto) 1.2 1.0-4.0 10^3/uL Monocytes # (Auto) 0.3 0.0-1.0 10^3/uL Eosinophils # (Auto) 0.1 0.0-0.3 10^3/uL Basophils # (Auto) 0.0 0.0-0.1 10^3/uL Immature Granulocyte # (Auto) 0.0 0.0-0.1 10^3/uL Percent Immature Platelet Fraction 5.9 0.0-7.6 % Sodium Level 141 135-145 MMOL/L Potassium Level 3.9 3.6-5.0 MMOL/L Chloride Level 99 98-107 MMOL/L Carbon Dioxide Level 34 H 21-32 MMOL/L Anion Gap 8 5-14 MMOL/L Blood Urea Nitrogen 32 H 7-18 MG/DL Creatinine 1.16 0.60-1.30 MG/DL Estimat Glomerular Filtration Rate 46 BUN/Creatinine Ratio 28 Glucose Level 115 H 70-105 MG/DL Lactic Acid Level 2.04 *H 0.50-2.00 MMOL/L Calcium Level 8.7 8.5-10.1 MG/DL Corrected Calcium 8.9 8.5-10.1 MG/DL Total Bilirubin 0.2 0.1-1.0 MG/DL Aspartate Amino Transf (AST/SGOT) 14 5-34 U/L Alanine Aminotransferase (ALT/SGPT) 10 0-55 U/L Alkaline Phosphatase 101 40-136 U/L Troponin I < 0.028 <0.028 NG/ML Total Protein 6.7 6.4-8.2 GM/DL Albumin 3.7 3.2-4.5 GM/DL Influenza Type A (RT-PCR) Not Detected Not Detecte Influenza Type B (RT-PCR) Not Detected Not Detecte SARS-CoV-2 RNA (RT-PCR) Not Detected Not Detecte My Orders Orders - SARAAWILDA Francois DO Cbc And Automated Diff (06/14/23 21:35) Comprehensive Metabolic Panel (06/14/23 21:35) Blood Culture (06/14/23 21:35) Chest 1 View, Ap/Pa Only (06/14/23 21:35) Ed Iv/Invasive Line Start (06/14/23 21:35) Vital Signs Adult Sepsis Patie Q15M (06/14/23 21:35) O2 (06/14/23 21:35) Lactic Acid Analyzer (06/14/23 21:35) Covid 19 Inhouse Test (06/14/23 21:35) Influenza A And B By Pcr (06/14/23 21:35) Ipratropium/Albuterol Inh Soln (Ipratrop (06/14/23 21:45) Svn Small Volume Nebulizer (06/14/23 21:35) Bnp Mya (06/14/23 21:35) Troponin I [place] (06/14/23 21:37) Ekg Tracing (06/14/23 21:37) Medications Given in ED Current Medications Medications Dose Ordered Sig/Trevon Route Start Time Stop Time Status Last Admin Dose Admin Albuterol/ Ipratropium 3 ml ONCE ONCE INH 06/14/23 21:45 06/14/23 21:46 DC 06/14/23 21:45 3 ML Vital Signs/I&O 06/14/23 06/14/23 06/14/23 21:32 21:32 21:38 Temp 36.9 Pulse 72 B/P (MAP) 136/86 (103) Pulse Ox 86 O2 Delivery Nasal Cannula Nasal Cannula Nasal Cannula O2 Flow Rate 3.00 3.00 4.00 Capillary Refill : ECG Comment Sinus rhythm with a rate of 69 bpm. Normal intervals. Left axis deviation. Left bundle branch block. No ST or T wave abnormality. No ectopy. No STEMI. Departure Communication (Admissions) Patient is on 4 L here and 100% throughout her emergency department stay. Vital signs are stable with normal heart rate, blood pressure. She has not been hypotensive throughout her stay. Chest x-ray shows likely effusion, possible infiltrate in the left lower lobe. She is already on Levaquin which should cover any bacterial forms and pneumonia however it is possible that this is a viral. COVID and flu testing are negative. I did independently review the EKG and chest x-ray. Her white blood cell count is normal, she is chronically anemic with no change acutely. Troponins negative. EKG is nonischemic. Electrolytes are reassuring. Lactic acid 2.05. She be discharged home in stable condition with supportive care and recommendation to continue Levaquin. Impression Primary Impression: Dyspnea Qualified Codes: R06.00 - Dyspnea, unspecified Disposition: HOME, SELF-CARE Condition: Stable Departure-Patient Inst. Referrals: ELZA FERGUSON DO (PCP/Family) Primary Care Physician Patient Instructions: Shortness of Breath, Adult ED Add. Discharge Instructions: As discussed this may be a viral illness. Continue your Levaquin as previously prescribed until its gone. Increase her fluids and allow her to rest. Return to the emergency department for any severe concerns or if you need to turn her oxygen up to greater than 4 L. Follow-up with her primary doctor on Sunday for reevaluation. All discharge instructions reviewed with patient and/or family. Voiced und erstanding. AWILDA RUIZ DO Jun 14, 2023 21:39
[2023-06-14] MEDS ORDERED: RT-Ipratropium/Albuterol NEB 3 ML VIAL INH ONE (21:45)
[2023-06-14 21:48] LABS: BASOPHILS % (AUTO) 0 % (0-10); MEAN CORPUSCULAR VOLUME 100 fL (80-99)
[2023-06-14 21:50] LABS: EOSINOPHILS # (AUTO) 0.1 10^3/uL (0.0-0.3); EOSINOPHILS % (AUTO) 2 % (0-10); HEMATOCRIT 30 % (35-52); LYMPHOCYTES # (AUTO) 1.2 10^3/uL (1.0-4.0); LYMPHOCYTES % (AUTO) 19 % (12-44); MEAN CORPUSCULAR HEMOGLOBIN 30 pg (25-34); MEAN CORPUSCULAR HGB CONC 30 g/dL (32-36); MONOCYTES # (AUTO) 0.3 10^3/uL (0.0-1.0); MONOCYTES % (AUTO) 6 % (0-12); NEUTROPHILS # (AUTO) 4.4 10^3/uL (1.8-7.8); NEUTROPHILS % (AUTO) 73 % (42-75); PLATELET COUNT 141 10^3/uL (130-400)
[2023-06-14 22:00] LABS: ALBUMIN 3.7 GM/DL (3.2-4.5); CHLORIDE 99 MMOL/L (98-107); POTASSIUM 3.9 MMOL/L (3.6-5.0); SODIUM 141 MMOL/L (135-145)
[2023-06-14 22:02] LABS: CALCIUM 8.7 MG/DL (8.5-10.1)
[2023-06-14 22:03] LABS: GLUCOSE 115 MG/DL (70-105); TOTAL PROTEIN 6.7 GM/DL (6.4-8.2)
[2023-06-14 22:04] LABS: CARBON DIOXIDE 34 MMOL/L (21-32)
[2023-06-14 22:05] LABS: BILIRUBIN,TOTAL 0.2 MG/DL (0.1-1.0)
[2023-06-14 22:06] LABS: ALKALINE PHOSPHATASE 101 U/L (40-136); CREATININE SERUM 1.16 MG/DL (0.60-1.30); GFR ESTIMATED 46
[2023-06-14 22:07] LABS: BUN/CREATININE RATIO 28
[2023-06-14 22:09] LABS: ALANINE AMINOTRANSFERASE 10 U/L (0-55)
[2023-06-14 22:37] VITALS: BP 128/58
--- NOTE | 2023-06-15 08:36 | Diagnostic Imaging Report ---
EXAMINATION: Chest radiograph, portable AP view. DATE: 06/14/2023 10:44 PM INDICATION: 82-year-old female, dyspnea. COMPARISON: April 19, 2023. FINDINGS: There is unchanged nonspecific left basilar airspace consolidation. Lung volumes are low. There is no identified pneumothorax. There is no large pleural effusion. There is bilateral glenohumeral arthritis. IMPRESSION: 1. Left basilar airspace consolidation which may relate to effusion, infiltrate, and/or atelectasis. Dictated by: Dictated on workstation # [id number]
== END 2023-06-14 22:41 | disposition home or self-care (01) ==
LOC: EDUNIT# 21:26 → ER 21:28
DX: R06.00 Dyspnea, unspecified (principal); J44.9 Chronic obstructive pulmonary disease, unspecified; Z99.81 Dependence on supplemental oxygen; Z79.899 Other long term (current) drug therapy; Z87.891 Personal history of nicotine dependence
CPT/HCPCS: 36415; 71045; 80053; 83605; 83880; 84484; 85025; 87040; 87636; 93005

== ENCOUNTER 2023-06-19 10:47 | Emergency (ER) | payer MEDICARE, MEDICAID ==
[~2023-06-19] VITALS: Ht 162.2 cm; Wt 74.3 kg
[2023-06-19 11:10] LABS: MEAN CORPUSCULAR VOLUME 103 fL (80-99)
[2023-06-19 11:11] LABS: BASOPHILS % (AUTO) 0 % (0-10); EOSINOPHILS # (AUTO) 0.1 10^3/uL (0.0-0.3); EOSINOPHILS % (AUTO) 1 % (0-10); HEMATOCRIT 32 % (35-52); HEMOGLOBIN 9.3 g/dL (11.5-16.0); LYMPHOCYTES # (AUTO) 0.8 10^3/uL (1.0-4.0); LYMPHOCYTES % (AUTO) 18 % (12-44); MEAN CORPUSCULAR HEMOGLOBIN 30 pg (25-34); MEAN CORPUSCULAR HGB CONC 29 g/dL (32-36); MEAN PLATELET VOLUME 10.8 fL (9.0-12.2); MONOCYTES # (AUTO) 0.3 10^3/uL (0.0-1.0); MONOCYTES % (AUTO) 6 % (0-12); NEUTROPHILS # (AUTO) 3.4 10^3/uL (1.8-7.8); NEUTROPHILS % (AUTO) 75 % (42-75); PLATELET COUNT 124 10^3/uL (130-400); WHITE BLOOD COUNT 4.6 10^3/uL (4.3-11.0)
[2023-06-19 11:20] LABS: ALBUMIN 3.5 GM/DL (3.2-4.5)
[2023-06-19 11:21] LABS: POTASSIUM 4.9 MMOL/L (3.6-5.0)
[2023-06-19 11:22] LABS: CALCIUM 8.8 MG/DL (8.5-10.1)
[2023-06-19 11:23] LABS: TOTAL PROTEIN 6.4 GM/DL (6.4-8.2)
[2023-06-19 11:25] LABS: BILIRUBIN,TOTAL 0.3 MG/DL (0.1-1.0)
[2023-06-19 11:27] LABS: CREATININE SERUM 0.83 MG/DL (0.60-1.30)
[2023-06-19 11:29] LABS: MAGNESIUM 2.1 MG/DL (1.6-2.4)
--- NOTE | 2023-06-19 11:36 | ED Fall/Injury ---
General Chief Complaint: Back Problems Stated Complaint: BACK PAIN Nursing Triage Note: PATIENT ARRIVES FROM HOME VIA EMS TO ROOM 2 FOR A SLIP FROM BED TO FLOOR AT HOME THAT INCREASED HER CHRONIC BACK PAIN. Source: patient, EMS Exam Limitations: no limitations History of Present Illness Date Seen by Provider: Jun 19, 2023 Time Seen by Provider: 10:50 Allergies and Home Medications Allergies Coded Allergies: cortisone (Verified Allergy, Unknown, 03/17/23) diphenhydramine (Verified Allergy, Unknown, 03/17/23) penicillin G (Verified Allergy, Unknown, 03/17/23) The patient is unaware that she has a penicillin allergy. She does not remember ever taking it and if she did what the reaction was. It has not been recently. Patient Home Medication List Albuterol Sulfate (Albuterol Sulfate) 0.63 Mg/3 Ml Vial.neb, 0.63 MG IH for SHORTNESS OF BREATH, (Reported) Entered as Reported by: GURWINDER MEYER on 03/18/23 1559 Amlodipine Besylate (Amlodipine Besylate) 10 Mg Tablet, 10 MG PO DAILY Prescribed by: MAC LINDSEY on 09/07/22 1201 Apixaban (Eliquis) 5 Mg Tablet, 5 MG PO BID, (Reported) Entered as Reported by: LILA DOVER on 03/20/22 0940 Atorvastatin Calcium (Atorvastatin Calcium) 20 Mg Tablet, 20 MG PO DAILY, (Reported) Entered as Reported by: ELZA AGUILAR on 10/11/21 1542 Benzonatate (Tessalon Perles) 100 Mg Capsule, 100 MG PO TID Prescribed by: Kristen Fletcher on 04/19/23 1258 Clopidogrel Bisulfate (Clopidogrel) 75 Mg Tablet, 75 MG PO DAILY, (Reported) Entered as Reported by: LILA DOVER on 03/20/22 0939 Diclofenac Sodium (Diclofenac Sodium) 1 % Gel..gram., 1 APPLIC TOP QID PRN for PAIN-BREAKTHROUGH, (Reported) Entered as Reported by: ELZA AGUILAR on 11/09/21 1112 Doxycycline Hyclate (Doxycycline Hyclate) 100 Mg Tablet, 100 MG PO BID Prescribed by: FLORES QUIÑONES on 04/10/23 2341 Fluticasone Propionate (Flovent Diskus 100 mcg) 100 Mcg Blst.w.dev, 100 MCG IH DAILY PRN for SHORTNESS OF BREATH, (Reported) Entered as Reported by: GURWINDER MEYER on 03/18/23 155 Lisinopril (Lisinopril) 40 Mg Tablet, 40 MG PO DAILY, (Reported) Entered as Reported by: ELZA AGUILAR on 10/11/21 154 Melatonin (Melatonin) 10 Mg Tablet, 10 MG PO HS, (Reported) Entered as Reported by: ELZA AGUILAR on 11/09/21 1112 Methylprednisolone (Methylprednisolone Dose Pack) 4 Mg Tab.ds.pk, 4 MG PO UD Prescribed by: FLORES QUIÑONES on 04/10/23 2341 Metoclopramide HCl (Metoclopramide HCl) 10 Mg Tablet, 10 MG PO BID, (Reported) Entered as Reported by: ELZA AGUILAR on 10/11/21 154 Metoprolol Succinate (Metoprolol Succinate) 50 Mg Tab.er.24h, 50 MG PO DAILY, (Reported) Entered as Reported by: ELZA AGUILAR on 10/11/21 154 Montelukast Sodium (Montelukast Sodium) 10 Mg Tablet, 10 MG PO HS, (Reported) Entered as Reported by: ELZA AGUILAR on 10/11/21 154 Nystatin/Triamcinolone (Nystatin-Triamcinolone Cream) 100,000 Unit/Gram-0.1 % Cr, 15 GM TP for RASH/ITCHING/YEAST-AREAS, (Reported) Entered as Reported by: GURWINDER MEYER on 03/18/23 155 Sertraline HCl (Sertraline HCl) 25 Mg Tablet, 25 MG PO DAILY, (Reported) Entered as Reported by: LILA DOVER on 03/20/22 0939 Trazodone HCl (Trazodone HCl) 100 Mg Tablet, 100 MG PO HS, (Reported) Entered as Reported by: ELZA AGUILAR on 10/11/21 154 Umeclidinium [place] (Incruse Ellipta) 62.5 Mcg/Actuation Blst.w.dev, 62.5 MCG IH for SHORTNESS OF BREATH, (Reported) Entered as Reported by: GURWINDER MEYER on 03/18/23 155 Past Trtzqsz-Tcbopn-Qtqywl Hx Patient Social History Tobacco Use?: No Use of E-Cig and/or Vaping dev: No Substance use?: No Alcohol Use?: No Pt feels they are or have been: No Immunizations Up To Date Tetanus Booster (TDap): Less than 5yrs PED Vaccines UTD: Yes Influenza Vaccine Up-to-Date: No; Not Current First/Initial COVID19 Vaccinat: 3 SHOTS Second COVID19 Vaccination Taurus: RECEIVED, UNK WHEN Third COVID19 Vaccination Date: RECEIVED, UNK WHEN Seasonal Allergies Seasonal Allergies: Yes Past Medical History Surgery/Hospitalization HX: htn, gerd, high cholesterol, asthma, CHF, COPD, STENT IN RT NECK, LT HIP Surgeries: Yes (RIGHT BREAST BIOPSY; ROTATOR CUFF; LEFT HIP 06/2021;R CAROTID STENT;LOOP) Section, Gallbladder, Hysterectomy, Oophorectomy, Orthopedic, Tonsillectomy Respiratory: Yes (COVID-19 12/2020-NO HOSPITALIZATION OR TREATMENT) Pneumonia, COPD Cardiac: Yes (CAROTID DISEASE;LBBB;CHF; EF 25-30%;LINQ 10/2021;MITRAL REGURG) High Cholesterol, Hypertension, Peripheral Vascular, Valvular Heart Disease Neurological: Yes (CVA 10/2021) Dementia, Stroke Reproductive Disorders: No Sexually Transmitted Disease: No Genitourinary: Yes UTI-Chronic Gastrointestinal: Yes Gastroesophageal Reflux Musculoskeletal: Yes (FALLS; LEFT HIP FX 06/2021) Arthritis, Fractures Endocrine: No HEENT: Yes (EDENTULOUS) Hearing Impairment: Hard of Hearing Cancer: No Psychosocial: No Blood Disorders: Yes (ANEMIA) Adverse Reaction/Blood Tranf: No Family Medical History Cancer, COPD, Diabetes, Hypertension SOCIAL HISTORY: -SMOKED IN PAST -DENIES ETOH -DENIES DRUG USE PAST SURGICAL HISTORY: -LEFT HIP FRACTURE WITH HIP REPLACEMENT 06/2021 - -CHOLECYSTECTOMY -TONSILLECTOMY -BREAST BIOPSY -HYSTERECTOMY / BILATERAL SALPINGO-OOPHORECTOMY, WITH ANTERIOR AND POSTERIOR REPAIR [address] HERNANDEZ -CARDIAC CATH 2016--NO INTERVENTION -LINQ DEVICE IMPLANTED 10/2021 -STENT IN LEFT CAROTID -EGD / COLONOSCOPY WITH PYLORIC POLYP REMOVAL AND COLON POLYP REMOVAL X 2 11/[address] MURRAY. Physical Exam Vital Signs Vital Signs - First Documented 06/19/23 10:55 Temp 37.0 Pulse 70 Resp 20 B/P (MAP) 152/104 (120) Pulse Ox 97 O2 Delivery Nasal Cannula O2 Flow Rate 3.00 Capillary Refill : Greater Than 3 Seconds Height, Weight, BMI Height: 5'4.00" Weight: 188lbs. 0.0oz. 85.801522js; 28.00 BMI Method:Stated Procedures/Interventions Suture Size: 5-0 Progress/Results/Core Measures Results/Orders Lab Results Laboratory Tests Test 06/19/23 10:55 06/19/23 11:19 06/19/23 11:26 Range/Units White Blood Count 4.6 4.3-11.0 10^3/uL Red Blood Count 3.14 L 3.80-5.11 10^6/uL Hemoglobin 9.3 L 11.5-16.0 g/dL Hematocrit 32 L 35-52 % Mean Corpuscular Volume 103 H 80-99 fL Mean Corpuscular Hemoglobin 30 25-34 pg Mean Corpuscular Hemoglobin Concent 29 L 32-36 g/dL Red Cell Distribution Width 13.9 10.0-14.5 % Platelet Count 124 L 130-400 10^3/uL Mean Platelet Volume 10.8 9.0-12.2 fL Immature Granulocyte % (Auto) 0 % Neutrophils (%) (Auto) 75 42-75 % Lymphocytes (%) (Auto) 18 12-44 % Monocytes (%) (Auto) 6 0-12 % Eosinophils (%) (Auto) 1 0-10 % Basophils (%) (Auto) 0 0-10 % Neutrophils # (Auto) 3.4 1.8-7.8 10^3/uL Lymphocytes # (Auto) 0.8 L 1.0-4.0 10^3/uL Monocytes # (Auto) 0.3 0.0-1.0 10^3/uL Eosinophils # (Auto) 0.1 0.0-0.3 10^3/uL Basophils # (Auto) 0.0 0.0-0.1 10^3/uL Immature Granulocyte # (Auto) 0.0 0.0-0.1 10^3/uL Percent Immature Platelet Fraction 5.2 0.0-7.6 % Sodium Level 143 135-145 MMOL/L Potassium Level 4.9 3.6-5.0 MMOL/L Chloride Level 102 98-107 MMOL/L Carbon Dioxide Level 32 21-32 MMOL/L Anion Gap 9 5-14 MMOL/L Blood Urea Nitrogen 24 H 7-18 MG/DL Creatinine 0.83 0.60-1.30 MG/DL Estimat Glomerular Filtration Rate 69 BUN/Creatinine Ratio 29 Glucose Level 123 H 70-105 MG/DL Calcium Level 8.8 8.5-10.1 MG/DL Corrected Calcium 9.2 8.5-10.1 MG/DL Magnesium Level 2.1 1.6-2.4 MG/DL Total Bilirubin 0.3 0.1-1.0 MG/DL Aspartate Amino Transf (AST/SGOT) 12 5-34 U/L Alanine Aminotransferase (ALT/SGPT) 9 0-55 U/L Alkaline Phosphatase 88 40-136 U/L C-Reactive Protein High Sensitivity 1.48 H 0.00-0.50 MG/DL B-Type Natriuretic Peptide 154.6 H <100.0 PG/ML Total Protein 6.4 6.4-8.2 GM/DL Albumin 3.5 3.2-4.5 GM/DL Influenza Type A (RT-PCR) Not Detected Not Detecte Influenza Type B (RT-PCR) Not Detected Not Detecte SARS-CoV-2 RNA (RT-PCR) Not Detected Not Detecte Urine Color YELLOW Urine Clarity CLEAR Urine pH 5.0 5-9 Urine Specific [place] 1.020 1.016-1.022 Urine Protein TRACE H NEGATIVE Urine Glucose (UA) NEGATIVE NEGATIVE Urine Ketones NEGATIVE NEGATIVE Urine Nitrite NEGATIVE NEGATIVE Urine Bilirubin NEGATIVE NEGATIVE Urine Urobilinogen 0.2 < = 1.0 MG/DL Urine Leukocyte Esterase NEGATIVE NEGATIVE Urine RBC (Auto) NEGATIVE NEGATIVE Urine RBC NONE /HPF Urine WBC NONE /HPF Urine Squamous Epithelial Cells 2-5 /HPF Urine Crystals NONE /LPF Urine Bacteria NEGATIVE /HPF Urine Casts NONE /LPF Urine Mucus NEGATIVE /LPF Urine Culture Indicated NO My Orders Orders - GUANAKITO CLIFTON MD Bnp Mya (06/19/23 11:01) Cbc And Automated Diff (06/19/23 11:01) Comprehensive Metabolic Panel (06/19/23 11:01) Hs C Reactive Protein (06/19/23 11:01) Magnesium (06/19/23 11:01) Ua Culture If Indicated (06/19/23 11:01) Ed Iv/Invasive Line Start (06/19/23 11:01) Chest 1 View, Ap/Pa Only (06/19/23 11:01) Tibia/Fibula, Right, 2 Views (06/19/23 11:01) Pelvis 1 To 2 Views (06/19/23 11:01) Covid 19 Inhouse Test (06/19/23 11:01) Influenza A And B By Pcr (06/19/23 11:01) Acetaminophen Tablet (Acetaminophen Ta (06/19/23 14:00) Knee, Right, 3 Views (06/19/23 13:50) Medications Given in ED Current Medications Medications Dose Ordered Sig/Trevon Route Start Time Stop Time Status Last Admin Dose Admin Acetaminophen 1,000 mg ONCE ONCE PO 06/19/23 14:00 06/19/23 14:01 DC 06/19/23 14:19 1,000 MG Vital Signs/I&O 06/19/23 10:55 Temp 37.0 Pulse 70 Resp 20 B/P (MAP) 152/104 (120) Pulse Ox 97 O2 Delivery Nasal Cannula O2 Flow Rate 3.00 Blood Pressure Mean: 120 Progress Progress Note : Time: 13:52 Progress Note Labs were obtained, reviewed, and interpreted by me. Mild anemia was noted with a hemoglobin of 9.3. This is stable when compared with prior. Chemistry was notable for slight elevation in BUN of 24 and elevation of glucose at 123. CRP was scantly elevated at 1.48. BNP was scantly elevated at 154.6. Swabs for influenza and COVID were negative. X-rays of the right tib-fib and pelvis were negative for injuries. There is slight blunting of the left costophrenic angle on the chest x-ray. Small effusion could be present. There is no overt evid ence for a pneumonia. Trial of ambulation was attempted. Patient was able to get up with some assistance and ambulate. She complained of pain in the right knee that seems more proximal than the pain she complained of earlier. She would like a dedicated knee x-ray. In the meantime we will give Tylenol. She otherwise feels comfortable going home. Granddaughter is her care provider and is here to assist her home. Departure Impression Primary Impression: Fall on same level Qualified Codes: W18.30XA - Fall on same level, unspecified, initial encount er Additional Impression: Right knee pain Qualified Codes: M25.561 - Pain in right knee Disposition: 01 HOME, SELF-CARE Condition: Stable Departure-Patient Inst. Decision time for Depature: 14:53 Referrals: ELZA FERGUSON DO (PCP/Family) Primary Care Physician Patient Instructions: Preventing Falls ED Add. Discharge Instructions: There is no evidence of bone injuries on your x-rays today. Drink plenty of clear liquids to stay well-hydrated. Use your walker to help prevent falls. You may continue your medications as previously directed. You may continue using Tylenol (acetaminophen) up to 1000 mg every 6 hours as needed for knee pain. Icing in 20-minute intervals and elevating may also be helpful. Follow-up with your primary care provider for further evaluation. Return to the ER if you have worsening symptoms despite following these instructions. All discharge instructions reviewed with patient and/or family. Voiced understanding. GUANAKITO CLIFTON MD Jun 19, 2023 11:35
[2023-06-19 11:54] LABS: BACTERIA,URINE NEGATIVE /HPF; BILIRUBIN,URINE NEGATIVE (NEGATIVE); CLARITY,URINE CLEAR; COLOR,URINE YELLOW; GLUCOSE, URINE (UA) NEGATIVE (NEGATIVE); KETONES,URINE NEGATIVE (NEGATIVE); LEUKOCYTE ESTERASE ,URINE NEGATIVE (NEGATIVE); NITRITE,URINE NEGATIVE (NEGATIVE); PROTEIN,URINE TRACE (NEGATIVE)
--- NOTE | 2023-06-19 12:49 | Diagnostic Imaging Report ---
INDICATION: Shortness of air. COMPARISON: 06/14/2023 FINDINGS: Single frontal radiographic view of the chest was obtained and demonstrates mild cardiomegaly. Pulmonary vasculature is within normal limits. Evaluation of the lung echavarria demonstrates low inspiratory volumes with blunting of left lateral costophrenic angle. This may be seen with small effusion as well as prominent pericardial fat. Lungs are otherwise clear. There is no large effusion on the right. No pneumothorax is seen on either side. Osseous structures show no acute abnormalities. IMPRESSION: 1. Cardiomegaly, but no evidence of failure or focal infiltrate. 2. Blunting of the left lateral costophrenic angle, which is likely related to prominent pericardial fat. Small effusion is not excluded. Dictated by: Dictated on workstation # [id number]
--- NOTE | 2023-06-19 13:06 | Diagnostic Imaging Report ---
CLINICAL INDICATION: Patient with pelvic pain. EXAM: X-ray of the pelvis, AP view. COMPARISON: X-ray of the pelvis dated 07/12/2021. FINDINGS: There is no acute fracture or dislocation. There is interval placement of a left total hip arthroplasty repairing the previously seen left femoral neck fracture. There is spurring and sclerosis of the sacroiliac joints. There is sclerosis of the symphysis pubis region. IMPRESSION: There is no acute fracture or dislocation. Dictated by: Dictated on workstation # [id number]
--- NOTE | 2023-06-19 13:18 | Diagnostic Imaging Report ---
CLINICAL INDICATION: Patient with leg pain. EXAM: X-ray of the right tibia-fibula, three views. COMPARISON: None. FINDINGS: There is no acute fracture or dislocation. There are hypertrophic patellar spurs at the quadriceps attachment region. There is no knee effusion as visualized. IMPRESSION: There is no acute fracture or dislocation. Dictated by: Dictated on workstation # [id number]
[2023-06-19] MEDS ORDERED: ACETAMINOPHEN 500 MG TABLET PO ONE (14:00)
--- NOTE | 2023-06-19 14:36 | Diagnostic Imaging Report ---
CLINICAL INDICATION: Patient with knee pain. EXAM: X-ray of the right knee, 3 views. COMPARISONS: None. FINDINGS: There is no acute fracture or dislocation. There are small patella spurs at the quadriceps attachment. There is no knee effusion. IMPRESSION: There is no acute fracture or dislocation. Dictated by: Dictated on workstation # [id number]
[2023-06-19 15:12] VITALS: BP 111/62
== END 2023-06-19 15:25 | disposition home or self-care (01) ==
LOC: EDUNIT# 10:47 → ER 10:48
DX: M25.561 Pain in right knee (principal); D64.9 Anemia, unspecified; Z87.891 Personal history of nicotine dependence; W18.30XA Fall on same level, unspecified, initial encounter; Y92.009 Unspecified place in unspecified non-institutional (private) residence as the place of occurrence of the external cause
CPT/HCPCS: 36415; 71045; 72170; 73562; 73590; 80053; 81000; 83735; 83880; 85025; 86141; 87636